=== PATIENT | female | born 1970 | race African-American/Black ===

== ENCOUNTER 2020-06-20 12:33 | Outpatient (RCR) | payer MEDICAID, SELFPAY ==
--- NOTE | 2020-07-24 09:34 | MHC.OT.DC ---
[address] [phone] F: [phone] Occupational Therapy Discharge Note Provider: Kaveh Daley Diagnosis: B/L HAND PAIN Date of Evaluation: 05/28/20 Date of Discharge: 07/24/20 Treatments to Date: 4 Cancellations to Date: 1 No Shows to Date: 4 Discharge Status: Patient Elected to Stop Visit Non-compliance Discharge Summary: NICOLE HAD ATTENDED A FEW SESSIONS OF OT, PRIMARILY FOR TREATMENT OF HER RIGHT VOLAR HAND. SHE EXPERIENCED HIGH PAIN AND DIFFICULTIES TOLERATING GRADED EXERCISES. HER RIGHT HAND WAS GUARDING WITH CUPPED HAND, SWOLLEN AT THENAR EMINENCE, AND TIGHT WEB SPACE. SHE WAS INCONSISTENT WITH FUNCTIONAL ABILITIES AND POSTURING. AT HER LAST VISIT, SHE REPORTED EMERGING INDEPENDENCE WITH BATHING AND DRESSING. MOST DIFFICULTIES WITH CUTTING AND STIRRING FOR MEAL PREP. NICOLE WILL BE D/C FROM OT DUE TO 30 DAY LAPSE IN RX AND INABILITY TO CONTACT PATIENT FOR ADDITIONAL VISITS. Electronically Signed By: HOLGER GREENBERG OTR/L Please Sign and return to therapist, thank you for your referral.
== END 2020-07-24 09:36 | disposition other institution (70) ==
LOC: HO.OT 12:33
PROVIDERS: PCP Internal Medicine; Visit Provider Student in an Organized Health Care Education/Training Program
DX: M79.7 Fibromyalgia (principal)
CPT/HCPCS: 97035; 97110; 97140; 97530

== ENCOUNTER → 2020-07-25 13:23 | Outpatient (BNVA) | payer MEDICAID, SELFPAY | PROVIDERS: PCP Internal Medicine; Referring Provider Internal Medicine; Visit Provider Dietitian, Registered | DX: Z76.89 Persons encountering health services in other specified circumstances (principal) ==

== ENCOUNTER → 2020-08-23 12:20 | Outpatient (BNVA) | payer MEDICAID, SELFPAY | PROVIDERS: PCP Internal Medicine; Visit Provider Nurse Practitioner Gerontology | DX: E11.42 Type 2 diabetes mellitus with diabetic polyneuropathy (principal); E11.65 Type 2 diabetes mellitus with hyperglycemia; E11.22 Type 2 diabetes mellitus with diabetic chronic kidney disease; N18.30 Chronic kidney disease, stage 3 unspecified; Z79.4 Long term (current) use of insulin | CPT/HCPCS: 82947; 99212 ==

== ENCOUNTER → 2020-09-25 11:29 | Outpatient (BNVA) | payer MEDICAID, SELFPAY | PROVIDERS: PCP Internal Medicine; Referring Provider Internal Medicine; Visit Provider Dietitian, Registered | DX: Z76.89 Persons encountering health services in other specified circumstances (principal) ==

== ENCOUNTER 2020-10-15 08:29 | Outpatient (REF) | payer MEDICAID, SELFPAY ==
--- NOTE | 2020-10-15 | US_ITS ---
EXAMINATION: US ABDOMEN COMPLETE CLINICAL INFORMATION: Abnormal serum enzyme levels. COMPARISON: None TECHNIQUE: Real-time imaging of the abdominal viscera. FINDINGS: PANCREAS: Normal. ABDOMINAL AORTA: The proximal, mid, and distal segments are normal in caliber. INFERIOR VENA CAVA: Visualized portions are normal. LIVER: Coarsened hepatic parenchymal echogenicity. The liver is normal in size. Mildly nodular surface contour. No focal hepatic lesion. There is no intrahepatic biliary duct dilatation seen. GALLBLADDER: Cholelithiasis. No gallbladder wall thickening or pericholecystic fluid. Sonographic Hillman sign is negative. COMMON BILE DUCT: Normal in caliber measuring 0.3 cm in diameter. RIGHT KIDNEY: Mild fullness of the renal pelvis without hydronephrosis. No renal calculi or focal parenchymal lesions. The kidney measures 11.8 cm in maximum dimension. LEFT KIDNEY: Normal. No hydronephrosis. No renal calculi or focal parenchymal lesions. The kidney measures 12.1 cm in maximum dimension. SPLEEN: Normal. The spleen measures 11.2 cm in maximum dimension. FREE FLUID: None. US/US abdomen complete IMPRESSION: * Coarsened hepatic parenchymal echogenicity and mildly heterogeneous contour suggests early cirrhosis. * No focal liver lesions. * Cholelithiasis without sonographic evidence of cholecystitis.
== END 2020-10-15 08:30 | disposition home or self-care (01) ==
LOC: HO.US 08:29
PROVIDERS: PCP Internal Medicine; Visit Provider Internal Medicine
DX: R74.8 Abnormal levels of other serum enzymes (principal)
CPT/HCPCS: 76700

== ENCOUNTER → 2020-11-15 14:47 | Outpatient (BNVA) | payer MEDICAID, SELFPAY | PROVIDERS: PCP Internal Medicine; Visit Provider Nurse Practitioner Family ==

== ENCOUNTER 2020-11-27 09:56 | Outpatient (REF) | payer MEDICAID, SELFPAY ==
[2020-11-27 10:32] LABS: INTERNATIONAL NORM RATIO 1.2 (0.9-1.1); Prothrombin Time 14.8 SEC (10.8-13.0)
[2020-11-27 11:07] LABS: Alanine Aminotransferase 57 U/L (0-31); Albumin Level 4.4 g/dL (3.5-5.0); Alkaline Phosphatase 139 U/L (39-117); Anion Gap 14 (12-20); Aspartate Amino Transferase 58 U/L (5-31); Bilirubin Total 0.6 mg/dL (0.0-1.0); Blood Urea Nitrogen 13 mg/dL (9-16); Calcium 10.3 mg/dL (8.4-10.2); Carbon Dioxide 29 mmol/L (22-29); Chloride 104 mmol/L (96-108); Cholesterol 229 mg/dL; Estimated Glomerular Filt Rate > 60; Glucose Fasting 270 mg/dL (60-99); HDL Cholesterol 35 mg/dL; Potassium 4.7 mmol/L (3.3-5.1); Sodium 142 mmol/L (135-145); Total Protein 8.5 g/dL (6.5-8.0); Triglycerides 455 mg/dL
[2020-11-27 11:25] LABS: HBS Num1 0.12 mIU/mL (0-7.99); HBsAGNum1 0.39 S/CO (0.00-0.99); Hepatitis B Surface Antigen Negative (Negative); ~HepC Num1 0.14 S/CO (0.00-0.79); ~Hepatitis B Surface Antibody NONREACTIVE (Nonreactive); ~Hepatitis C Antibody Nonreactive (Nonreactive)
[2020-11-27 11:28] LABS: HBc Num1 0.07 S/CO (0.00-0.79); HIV AB/AG Nonreactive (Nonreactive); HIV Num 1 0.06 S/CO (0.00-0.99); Hepatitis A Antibody IgM 0.19 Index (0-0.79); Hepatitis B Core Antibody Nonreactive (Nonreactive); ~Hepatitis A Antibody IgM Nonreactive (Nonreactive)
[2020-11-27 11:29] LABS: Ferritin 352 ng/mL (10-250); Thyroid Stimulating Hormone 2.51 uIU/mL (0.32-4.0)
[2020-11-27 13:05] LABS: Estimated Average Glucose 229 mg/dL; Hemoglobin A1c % 9.6 %
[2020-11-28 12:27] LABS: Alpha Fetoprotein 5.4 ng/mL
[2020-11-28 14:01] LABS: CRP High Sensitivity >10.0 mg/L
[2020-11-29 13:36] LABS: Prot Elec - Albumin 4.3 g/dL (3.8-4.8); Prot Elec - Alpha1 0.3 g/dL (0.2-0.3); Prot Elec - Alpha2 0.9 g/dL (0.5-0.9); Prot Elec - Beta 1 0.5 g/dL (0.4-0.6); Prot Elec - Beta 2 0.5 g/dL (0.2-0.5); Prot Elec - Gamma 1.6 g/dL (0.8-1.7)
[2020-11-29 13:57] LABS: Anti Nuclear Antibody Screen NEGATIVE (NEGATIVE)
[2020-12-03 13:32] LABS: Mitochondrial Antibodies NEGATIVE (NEGATIVE)
[2020-12-03 21:56] LABS: Smooth Muscle Antibody 20 U (<20)
[2020-12-05 00:36] LABS: FIB-ALT 54 U/L (6-29); FIB-Alpha-2-Macroglobulin 396 mg/dL (106-279); FIB-Apolipoprotein A1 126 mg/dL (101-198); FIB-GGT 428 U/L (3-70); FIB-Haptoglobin 118 mg/dL (43-212); FIB-Total Bilirubin 0.4 mg/dL (0.2-1.2); Liver Fibrosis Score 0.75; Liver Fibrosis Stage F4; Nec Inflam Act Grade A1-A2; Nec Inflam Act Score 0.48
== END 2020-11-27 09:57 | disposition home or self-care (01) ==
LOC: HO.LAB 09:56
PROVIDERS: Absent Provider Nurse Practitioner Gerontology; PCP Internal Medicine; Visit Provider Nurse Practitioner Family
DX: E11.65 Type 2 diabetes mellitus with hyperglycemia (principal); R74.8 Abnormal levels of other serum enzymes; Z79.4 Long term (current) use of insulin
CPT/HCPCS: 36415; 80053; 80061; 81596; 82105; 82728; 83036; 84155; 84165; 84443; 85610; 86038; 86039; 86141; 86255; 86256; 86704; 86706; 86709; 86803; 87340; 87389

== ENCOUNTER → 2020-12-03 12:21 | Outpatient (BNVA) | payer MEDICAID, SELFPAY | PROVIDERS: PCP Internal Medicine; Visit Provider Nurse Practitioner Gerontology | DX: E11.42 Type 2 diabetes mellitus with diabetic polyneuropathy (principal); E11.65 Type 2 diabetes mellitus with hyperglycemia; Z79.4 Long term (current) use of insulin | CPT/HCPCS: 82947; 99212 ==

== ENCOUNTER → 2020-12-05 13:47 | Outpatient (BNVA) | payer MEDICAID, SELFPAY | PROVIDERS: PCP Internal Medicine; Visit Provider Nurse Practitioner Family ==

== ENCOUNTER 2020-12-06 11:44 | Outpatient (REF) | payer MEDICAID, SELFPAY ==
[2020-12-06 15:10] LABS: Albumin Level 4.2 g/dL (3.5-5.0)
[2020-12-09 10:31] LABS: Alpha 1 Anti-trypsin 125 mg/dL (83-199); Ceruloplasmin 35 mg/dL (18-53)
== END 2020-12-06 11:45 | disposition home or self-care (01) ==
LOC: HO.LAB 11:44
PROVIDERS: Nurse Practitioner Family; PCP Internal Medicine; Visit Provider Nurse Practitioner Gerontology
DX: K74.60 Unspecified cirrhosis of liver (principal); R74.8 Abnormal levels of other serum enzymes; E78.5 Hyperlipidemia, unspecified; K59.00 Constipation, unspecified
CPT/HCPCS: 36415; 81256; 82040; 82043; 82103; 82390; 84134; 99212

== ENCOUNTER 2020-12-30 13:40 | Outpatient (REF) | payer MEDICAID, SELFPAY ==
--- NOTE | ~2020-12-30 | MM_ITS ---
EXAMINATION: MM SCREENING DIGITAL BREAST TOMOSYNTHESIS, BILATERAL CLINICAL INFORMATION: Screening. Asymptomatic. The lifetime risk of breast cancer based on the Tyrer-Cuzick Model is 16%. COMPARISON: Mammography: 02/13/2019, 01/31/2019 (new baseline) TECHNIQUE: Digital breast tomosynthesis is performed in both the craniocaudal and mediolateral oblique views along with computer-aided detection (CAD). Synthesized 2D images are generated from the tomosynthesis. FINDINGS: There are scattered areas of fibroglandular density (ACR BI-RADS breast composition Category b). There are no significant masses, abnormal calcifications, or other abnormalities. There are scattered punctate calcifications bilateral upper outer quadrants. Dermal calcifications are again seen grouped mid 3:00 right breast. The axilla are unremarkable. No significant changes. MM/MM tomosynthesis screening BI IMPRESSION: No mammographic evidence of malignancy. ASSESSMENT: BI-RADS 2: Benign RECOMMENDATION: Routine annual mammography screening. This patient's information was entered into a reminder system with a target due date for their next mammogram.
== END 2020-12-30 13:41 | disposition home or self-care (01) ==
LOC: HO.MAMMO 13:40
PROVIDERS: PCP Internal Medicine; Visit Provider Internal Medicine
DX: Z12.31 Encounter for screening mammogram for malignant neoplasm of breast (principal)
CPT/HCPCS: 77063; 77067

== ENCOUNTER → 2021-01-08 13:52 | Outpatient (BNVA) | payer MEDICAID, SELFPAY | PROVIDERS: PCP Internal Medicine; Visit Provider Nurse Practitioner Family ==

== ENCOUNTER 2021-01-17 13:45 | Outpatient (REF) | payer MEDICAID, SELFPAY ==
[2021-01-21 14:57] LABS: Ceruloplasmin 33 mg/dL (18-53)
== END 2021-01-17 13:46 | disposition home or self-care (01) ==
LOC: HO.LAB 13:45
PROVIDERS: PCP Internal Medicine; Referring Provider Internal Medicine; Visit Provider Nurse Practitioner Family
DX: R74.8 Abnormal levels of other serum enzymes (principal); K74.60 Unspecified cirrhosis of liver; K59.00 Constipation, unspecified; E78.5 Hyperlipidemia, unspecified
CPT/HCPCS: 36415; 82390; 99212

== ENCOUNTER → 2021-01-31 12:28 | Outpatient (BNVA) | payer MEDICAID, SELFPAY | PROVIDERS: PCP Internal Medicine; Referring Provider Internal Medicine; Visit Provider Nurse Practitioner Family | DX: K74.60 Unspecified cirrhosis of liver (principal); E78.5 Hyperlipidemia, unspecified; K59.00 Constipation, unspecified; R74.8 Abnormal levels of other serum enzymes | CPT/HCPCS: 99212 ==

== ENCOUNTER → 2021-02-25 12:53 | Outpatient (REF) | payer MEDICAID, SELFPAY ==
--- NOTE | 2021-02-25 12:56 | CA_ITS ---
Transthoracic Echocardiogram Patient (Last, First, Middle): Renata Gusman, Gender: Female Date of : 1970 Age: 50 Procedure Date: 02/25/2021 Procedure Type: Transthoracic Echocardiogram Location: OP Height: 162.56 cm Weight: 73.48 kg BSA: 1.79 m2 Heart Rate: bpm BP: 110 / 70 mmHg Auto Claim Representative: ELDER Referring MD: Margie Hugo [facility] Symptoms: K74.60 - Unspecified cirrhosis of liver Study Quality: Fair ECG Rhythm: Sinus Conclusions: - The left ventricular systolic function is normal. The visually estimated ejection fraction is between 60-65%. - No obvious valvular pathology seen on this study. Findings Left Ventricle Normal left ventricular cavity size. The left ventricular systolic function is normal. The visually estimated ejection fraction is between 60-65%. There is no evidence of regional wall motion abnormalities. Diastolic function is normal for age. Mild focal hypertrophy of the basal septum. Right Ventricle Normal right ventricular cavity size and systolic function. Atria Both atria are normal in size. Aortic Valve There is a normal trileaflet aortic valve. There is no aortic valve stenosis. There is no aortic valve regurgitation. Mitral Valve There is mild anterior and posterior mitral leaflet thickening. There is trace mitral valve regurgitation. There is no mitral valve stenosis. Pulmonic Valve The pulmonic valve was not well visualized. There is trace pulmonic valve regurgitation. Tricuspid Valve Normal tricuspid valve structure. There is no tricuspid valve regurgitation. The pulmonary artery systolic pressure is normal. Great Vessels The aortic annulus, sinuses of valsalva, and asc aorta are normal in size. Venous The inferior vena cava was not well visualized. The inferior vena cava is normal in size. Pericardium/Pleural There is no evidence of pericardial effusion. Prior Study Comparison No prior study available for comparison. Recommendations, Care & Conclusions No obvious valvular pathology seen on this study. Measurements M-Mode Liner Measurements Normals - Women/Men AOV Cusps: 2.00 1.5-2.6 cm/m2 2D Linear Measurements IVSd: 0.73 0.6-0.9/0.6-1.0 cm LVIDd: 4.06 3.9-5.3/4.2-5.9 cm LVIDd Index: 2.27 2.4-3.2/2.2-3.1 cm/m2 LVIDs: 2.59 2.0-3.6 cm LVPWd: 0.78 0.7-1.1 cm Ao Root: 2.70 2.1-3.5 cm LA Diam: 2.80 2.7-3.8/3.0-4.0 cm LAIDs Index: 1.56 1.5-2.3 cm/m2 LV Mass: 109.44 67-162/88-224 g LV Mass Index: 61.14 43-95/49-115 g/m2 LVOT Diam: 1.80 3.0+(-)1.3 cm 2D Systolic Function EF 4C: 57.70 >55% EF 2C: 67.20 >55% EF BiP: 62.80 >55% Mitral Valve MV Pk E: 0.64 MV PK A: 0.50 MV Decel Time: 330.00 E/A: 1.30 E'Lateral: 11.00 E'Medial: 6.09 E/E' Med: 10.60 E/E' Lat: 5.80 PHT: 97.00 MVA PHT: 2.27 Decel [place]: 1.95 Aortic Valve AoV Pk Regis: 1.38 AoV Mn Regis: 0.91 AoV VTI: 0.25 AoV Pk Grad: 8.00 Aov Mn Grad: 4.00 CHACORTA Cont.VTI: 1.66 LVOT LVOT Pk Regis: 0.76 LVOT Mn Regis: 0.57 LVOT VTI: 0.16 LVOT Pk Grad: 2.00 LVOT Mn Grad: 1.00 LVOT Diam: 1.80 LVOT Area: 2.54 Diastolic Function MV Pk E: 0.64 MV Pk A: 0.50 E/A: 1.30 E'Medial: 6.09 E/E' Med: 10.60 E' Laterial: 11.00 E/E' Lat: 5.80 Tricuspid Valve RA Press: 3.00 Great Vessels Aorta Ao Root-2D: 2.70 2.0-3.7 cm Ao Asc: 2.60 2.1-3.4 cm Ao Arch: 2.20 Pulmonary Valve PV Pk Regis: 1.05 Peak PV Grad: 4.00 Updated in Other Vendor System with Status of Final Rolando Llamas MD electronically signed on 02/26/2021 4:25:28 PM with status of Final
== END ==
LOC: HO.CARD 12:53
PROVIDERS: Visit Provider Nurse Practitioner Family
DX: K74.60 Unspecified cirrhosis of liver (principal); E78.5 Hyperlipidemia, unspecified
CPT/HCPCS: 93306

== ENCOUNTER → 2021-03-14 11:43 | Outpatient (BNVA) | payer MEDICAID, SELFPAY | PROVIDERS: PCP Internal Medicine; Visit Provider Nurse Practitioner Gerontology | DX: E11.42 Type 2 diabetes mellitus with diabetic polyneuropathy (principal); E11.65 Type 2 diabetes mellitus with hyperglycemia; E78.00 Pure hypercholesterolemia, unspecified; Z79.4 Long term (current) use of insulin | CPT/HCPCS: 82947; 99212 ==

== ENCOUNTER 2021-03-31 10:44 | Emergency (ER) | payer MEDICAID, SELFPAY ==
--- NOTE | ~2021-03-31 | XR_ITS ---
EXAMINATION: XR SHOULDER, LEFT CLINICAL INFORMATION: Pain COMPARISON: None TECHNIQUE: Three views of the left shoulder. FINDINGS: Bone alignment is normal. No fracture or dislocation is seen. There is arthritis at the glenohumeral joint with joint space narrowing and osteophyte formation. The acromioclavicular joint is normal. Soft tissues are normal. XR/XR shoulder LT min 2V IMPRESSION: Arthritis at the glenohumeral joint.
[2021-03-31 10:53] VITALS: BP 123/75; PULSE 71; RESP 18; TEMP 37; O2SAT 98
--- NOTE | 2021-03-31 11:43 | ED_ITS ---
HPI - Extremity Problem General Chief complaint: Extremity Injury, Upper Stated complaint: lt arm pain Time Seen by Provider: 03/31/21 10:48 Source: patient Mode of arrival: ambulatory Limitations: language barrier (Senegalese-speaking) History of Present Illness HPI Narrative: 51-year-old female with a past medical history of type 2 diabetes, diabetic polyneuropathy, CKD, hyperlipidemia, liver cirrhosis and constipation not on any blood thinners presenting to the ED with complaints of left shoulder/left upper arm pain over the past month after twisting her arm while she was holding the pole while on a bus and since then symptoms has worsening and she has limited range of motion since then. Denies any fevers, chills, dizziness, headaches, nausea/vomiting, change in vision, chest pain or shortness of breath, palpitations, dyspnea on exertion, orthopnea, extremity edema or any other symptoms complaints or concerns at this time. She reports she did not actually fall. Denies any rashes. MD Complaint: extremity pain Onset (ago): month(s) (1 month) Pain Consistency: constant Location: left and upper extremity (Shoulder) Severity scale (1-10): >10 Quality: aching and constant Radiation: distal Relieving factors: nothing Exacerbating factors: range of motion and palpation Associated symptoms: denies other symptoms Related Data Home Medications Medication Instructions Recorded Confirmed blood sugar diagnostic #10 ea 08/23/20 03/14/21 blood-glucose meter #1 ea 08/23/20 03/14/21 clonazepam 0.5 mg tablet 0.25 mg PO BID 08/23/20 03/14/21 escitalopram oxalate 20 mg tablet 20 mg PO DAILY 08/23/20 03/14/21 gabapentin 300 mg capsule 300 mg PO DAILY 08/23/20 03/14/21 ibuprofen 600 mg tablet 600 mg PO Q8H PRN 08/23/20 03/14/21 lancets 28 gauge #100 ea 08/23/20 03/14/21 levothyroxine 25 mcg capsule 25 mcg PO DAILY 08/23/20 03/14/21 lisinopril 2.5 mg tablet 2.5 mg PO DAILY 08/23/20 03/14/21 trazodone 150 mg tablet,extended 150 mg PO DAILY tab 08/23/20 03/14/21 release 24 hr Previous Rx's Medication Instructions Recorded docusate sodium 100 mg capsule 100 mg PO DAILY #30 cap 11/15/20 methylcellulose (laxative) 500 mg 500 mg PO DAILY #30 tab 11/15/20 tablet polyethylene glycol 3350 17 238 g PO ONCE #238 g 11/15/20 gram/dose oral powder insulin degludec 200 unit/mL (3 74 unit SUBCUT DAILY 30 Days #18 ml 12/03/20 mL) subcutaneous pen insulin lispro 100 unit/mL 28 unit SUBCUT TID 30 Days #30 ml 12/03/20 subcutaneous pen pen needle, diabetic 32 gauge x #150 ea 12/03/20 pioglitazone 15 mg tablet 15 mg PO DAILY #30 tab 12/03/20 empagliflozin 25 mg tablet 25 mg PO DAILY #30 tab 01/04/21 sennosides 8.6 mg tablet 17.2 mg PO BEDTIME PRN #30 tab 01/17/21 rosuvastatin 5 mg tablet 5 mg PO DAILY #30 tab 01/28/21 dulaglutide 1.5 mg/0.5 mL 1.5 mg SUBCUT QWEEK 28 Days #2 ml 03/14/21 subcutaneous pen injector cyclobenzaprine 10 mg PO Q8H #10 tab 03/31/21 ibuprofen 800 mg PO Q8H PRN #14 tab 03/31/21 lidocaine [Lidoderm] 1 patch TOPICAL DAILY #15 ea 03/31/21 tramadol 50 mg PO Q8H PRN #14 tab 03/31/21 Allergies Allergy/AdvReac Type Severity Reaction Status Date / Time acetaminophen Allergy Unknown rash Verified 03/14/21 12:45 [Tylenol-Codeine] codeine [Tylenol-Codeine] Allergy Unknown rash Verified 03/14/21 12:45 Sea food Allergy Mild throat Uncoded 03/14/21 12:45 closes Review of Systems Review of Systems: Constitutional : No changes in activity, No lethargy, No recent prior head injury, No agitation, No increased fussiness ENT/Mouth : No Ear Pain, No Nasal discharge/drainage Eyes: No Eye Pain, No Swelling, No Redness, No Foreign Body, No Vision Changes Cardiovascular : No Chest Pain, No SOB Respiratory : No Cough Gastrointestinal : No Nausea, No Vomiting, No abdominal Pain Genitourinary : No Dysuria, No Urinary Frequency, No Urinary Incontinence, No Urgency, No Flank Pain Musculoskeletal : + joint pain, No neck stiffness, No back pain/injury Skin : No lacerations Neuro : No unsteady gait, No Paresthesias, No Loss of Consciousness, No altered mental status, No Headache Yes all other systems are reviewed and are negative [facility] Past Medical History Attestation statement: The following information was validated with the patient. Medical History Asthma Chronic kidney disease, stage 3 Depression Elevated liver enzymes Fibromyalgia Hepatitis C Hypothyroidism [facility] current use of insulin Type 2 diabetes mellitus with diabetic polyneuropathy Type 2 diabetes mellitus with hyperglycemia, with long-term current use of insulin Surgical History H/O oral surgery Family History Family History Mother Diabetes Asthma Kidney stones Brother Diabetes Social History Social History Household Members: Spouse Alcohol intake: current Alcohol intake frequency: does not drink Patient Tobacco Use Status: Never used Tobacco Advance Directives: No Advance Directives Information Provided: No Patient : No Current occupational status: disabled Physical Exam Vital Signs: Vital Signs: Last Vital Signs Temp 98.6 F 03/31/21 10:53 Pulse 71 03/31/21 10:53 Resp 18 03/31/21 10:53 BP 123/75 03/31/21 10:53 Pulse Ox 98 03/31/21 10:53 Body Mass Index 30.0 vital signs have been reviewed as normal and appeared to be correct. Blood pressure normal. Heart rate normal. Respiration rate normal. Temperature normal. Oxygen saturation normal. Appearance: Alert. Oriented X3. No acute distress. Head: Normal external exam. Normocephalic. Atraumatic. Eyes: PERRLA. EOMI. Conjunctiva and sclera normal. Eyelids normal. ENT: Pharynx normal. Uvula midline. Moist mucous membranes. Neck: Normal inspection. Neck supple. FROM. No adenopathy. No meningeal signs. CVS: Normal heart rate and rhythm. Heart sound normal. Pulses normal throughout. No murmurs/rales/gallops. Respiratory: No respiratory distress. Painless inspiration. Breath sounds normal. No wheezes/rales/rhonchi noted. Chest nontender. No accessory muscle usage noted or decreased air movement noted. Back:Full range of motion noted. No rashes/lesion/induration/fluctuance or signs of infection noted. Skin: Skin warm and dry. Normal skin color. Normal skin turgor. No rashes/lesions/lacerations noted. Extremities: Patient with tenderness to palpation to left AC joint with limited range of motion due to pain and upper humerus. No signs of infection. No rashes noted. No laxity noted. No extremity edema noted. Otherwise all other Extremities exhibit normal range of motion and nontender. Neuro: Oriented X 3. No motor deficit. No sensory deficit. Reflexes normal. Normal steady gait. No focal neuro deficits noted. Vascular: + radial pulses/+ 2 distal pedal pulses/+2 dorsalis pedis b/l. Normal cap refill. No cyanosis noted to upper extremity nails and lower extremity toes nails. Course Course Course Narrative: 51-year-old female with a past medical history of type 2 diabetes, diabetic polyneuropathy, CKD, hyperlipidemia, liver cirrhosis and constipation not on any blood thinners presenting to the ED with complaints of left shoulder/left upper arm pain over the past month after twisting her arm while she was holding the pole while on a bus and since then symptoms has worsening and she has limited range of motion since then. On exam patient has limited range of motion and tenderness with palpation to left AC joint. No laxity noted. No deformities noted. Muscles appear to be intact. Will obtain x-ray if negative will DC home with symptomatic treatment instructions to follow-up with her primary care provider. Patient understands agrees with this plan. MDM - Extremity (Nontraumatic) Lab Data Attestation: I reviewed the patient's lab results. Imaging Data Left shoulder x-ray: Attestation: I personally reviewed and interpreted this imaging study as follows: Radiologist's impression: FINDINGS: Bone alignment is normal. No fracture or dislocation is seen. There is arthritis at the glenohumeral joint with joint space narrowing and osteophyte formation. The acromioclavicular joint is normal. Soft tissues are normal. XR/XR shoulder LT min 2V IMPRESSION: Arthritis at the glenohumeral joint. Discharge Plan Discharge Clinical Impression: Arthritis of left glenohumeral joint Patient Disposition: Home, Self-Care Instructions: Shoulder Sprain (ED), Rotator Cuff Injury Exercises (DC), Arthritis (ED) Prescriptions: New cyclobenzaprine 10 mg tablet 10 mg PO Q8H Qty: 10 RF: 0 ibuprofen 800 mg tablet 800 mg PO Q8H PRN (Reason: pain) Qty: 14 RF: 0 lidocaine [Lidoderm] 5 % adhesive patch,medicated 1 patch topical DAILY Qty: 15 RF: 0 tramadol 50 mg tablet 50 mg PO Q8H PRN (Reason: pain) Qty: 14 RF: 0 No Action empagliflozin [Jardiance] 25 mg tablet 25 mg PO DAILY Qty: 30 RF: 3 rosuvastatin 5 mg tablet 5 mg PO DAILY Qty: 30 RF: 4 polyethylene glycol 3350 [Miralax] 17 gram/dose powder 238 g PO ONCE Qty: 238 RF: 0 docusate sodium 100 mg capsule 100 mg PO DAILY Qty: 30 RF: 3 Citrucel 500 mg tablet 500 mg PO DAILY Qty: 30 RF: 2 pioglitazone 15 mg tablet 15 mg PO DAILY Qty: 30 RF: 3 Tresiba FlexTouch U-200 200 unit/mL (3 mL) insulin pen 74 unit subcut DAILY 30 Days Qty: 18 RF: 3 insulin lispro [Humalog KwikPen Insulin] 100 unit/mL insulin pen 28 unit subcut TID 30 Days Qty: 30 RF: 3 (DME) pen needle, diabetic [BD Eun 2nd Gen Pen Needle] 32 gauge x 5/32 needle See Rx Instructions .ROUTE .MEDSUPPLY Qty: 150 RF: 3 sennosides [Natural Senna Laxative] 8.6 mg tablet 17.2 mg PO BEDTIME PRN (Reason: constipation) Qty: 30 RF: 3 (DME) blood-glucose meter [FreeStyle Lite Meter] Kit See Rx Instructions .ROUTE .MEDSUPPLY Qty: 1 RF: 0 (DME) FreeStyle Lite Strips Strip See Rx Instructions .ROUTE .MEDSUPPLY Qty: 10 RF: 0 (DME) lancets [FreeStyle Lancets] 28 gauge misc See Rx Instructions .ROUTE .MEDSUPPLY Qty: 100 RF: 0 ibuprofen 600 mg tablet 600 mg PO Q8H PRNRF: 0 lisinopril 2.5 mg tablet 2.5 mg PO DAILY RF: 0 trazodone 150 mg tablet extended release 24 hr 150 mg PO DAILY RF: 0 clonazepam 0.5 mg tablet 0.25 mg PO BID RF: 0 levothyroxine [Tirosint] 25 mcg capsule 25 mcg PO DAILY RF: 0 escitalopram oxalate 20 mg tablet 20 mg PO DAILY RF: 0 gabapentin 300 mg capsule 300 mg PO DAILY RF: 0 Trulicity 1.5 mg/0.5 mL pen injector 1.5 mg subcut QWEEK 28 Days Qty: 2 RF: 3 Referrals: Renetta Gómez MD [Primary Care Provider] - 2 days Anali Pretty MD [Physician] - 2 weeks (If symptoms persist) Print Language: Senegalese
== END 2021-03-31 12:50 | disposition home or self-care (01) ==
PROVIDERS: Emergency Provider Emergency Medicine; PCP Internal Medicine
DX: M19.012 Primary osteoarthritis, left shoulder (principal); E11.22 Type 2 diabetes mellitus with diabetic chronic kidney disease; N18.30 Chronic kidney disease, stage 3 unspecified; Z79.4 Long term (current) use of insulin; Z79.899 Other long term (current) drug therapy
CPT/HCPCS: 73030; 99283

== ENCOUNTER → 2021-04-07 12:44 | Outpatient (BNVA) | payer MEDICAID, SELFPAY | PROVIDERS: PCP Internal Medicine; Referring Provider Internal Medicine; Visit Provider Nurse Practitioner Family | DX: K74.60 Unspecified cirrhosis of liver (principal); K59.00 Constipation, unspecified; R74.8 Abnormal levels of other serum enzymes | CPT/HCPCS: 99212 ==

== ENCOUNTER 2021-04-15 09:43 | Day surgery (SDC) | payer MEDICAID, SELFPAY ==
[2021-04-15] VITALS (8 sets, daily range): BP systolic 103–113; BP diastolic 60–67; PULSE 65–96; RESP 16–17; TEMP 36.6–36.7; O2SAT 96–98; BMI 27.9
--- NOTE | ~2021-04-15 | US_ITS ---
EXAMINATION: US ULTRASOUND-GUIDED LIVER BIOPSY CLINICAL INFORMATION: Cirrhosis and elevated LFTs. COMPARISON: None. TECHNIQUE: Following explaining ultrasound-guided liver biopsy procedure, benefits and risks, a written consent was obtained. Patient was placed supine on an ultrasound table and preliminary ultrasound imaging was obtained. An optimal site was selected, marked and cleaned in the usual sterile manner in the epigastric region. 1% lidocaine was injected at the puncture site. Through a small skin incision, a 20-gauge guide needle was advanced from the skin incision into the left hepatic lobe. Coaxially, a biopsy gun was advanced and a left hepatic lobe core biopsy was performed. Postprocedure the guide needle was withdrawn and complete hemostasis was achieved at the puncture site. Sterile Band-Aid was applied postprocedure. FINDINGS: On preliminary ultrasound imaging, the liver is diffusely echogenic. There are multiple echogenic gallstones with no wall thickening. Successful ultrasound-guided left hepatic lobe coaxial core biopsy was performed. Biopsy collected was sent in alcohol solution to cytology for further evaluation. US/US biopsy liver IMPRESSION: Successful ultrasound-guided liver core biopsy performed without immediate complications.
[2021-04-15 10:05] LABS: MANUAL DIFF FLAG NO
[2021-04-15 10:08] LABS: Basophils Percent Auto 0.3 % (0-2); Eosinophils Absolute Auto 0.2 X10*3/uL (0.0-0.4); Eosinophils Percent Auto 1.6 % (0-4); Hematocrit 46.5 % (37-47); Hemoglobin 15.3 g/dl (12.0-16.0); Imm Gran Abs Auto 0.04 X10*3/uL (0.00-0.03); Imm Gran Pct Auto 0.4 % (0.0-0.4); Lymphocytes Percent Auto 31.4 % (20-40); Mean Corpuscular HGB Conc 32.9 g/dl (31.0-35.0); Mean Corpuscular Hemoglobin 30.8 pg (27.0-33.0); Mean Corpuscular Volume 93.8 fL (80-98); Monocytes Absolute Auto 0.5 X10*3/uL (0.1-1.2); Monocytes Percent Auto 5.6 % (2-11); Neutrophils Absolute Auto 5.9 X10*3/uL (2.0-8.3); Neutrophils Percent Auto 60.7 % (45-73); Platelet Count 161 X10*3/uL (160-400); Red Blood Count 4.96 X10*6/uL (4.20-5.50); Red Cell Distribution Width 13.3 % (11.0-16.0); White Blood Count 9.6 X10*3/uL (4.8-10.8)
[2021-04-15 10:14] LABS: INTERNATIONAL NORM RATIO 1.3 (0.9-1.1); Prothrombin Time 14.5 SEC (9.9-13.0)
[2021-04-15 10:14] LABS: Glucose, Whole Blood 167 mg/dL (60-115)
[2021-04-15 10:16] LABS: Partial Thromboplastin Time 43.4 SEC (24.1-38.0)
== END 2021-04-15 12:23 | disposition home or self-care (01) ==
PROVIDERS: Radiology Diagnostic Radiology; PCP Internal Medicine; Visit Provider Radiology Diagnostic Radiology
DX: K74.60 Unspecified cirrhosis of liver (principal); R74.8 Abnormal levels of other serum enzymes; K75.81 Nonalcoholic steatohepatitis (NASH); K80.80 Other cholelithiasis without obstruction; J45.909 Unspecified asthma, uncomplicated; E11.22 Type 2 diabetes mellitus with diabetic chronic kidney disease; N18.30 Chronic kidney disease, stage 3 unspecified; E11.42 Type 2 diabetes mellitus with diabetic polyneuropathy; E11.65 Type 2 diabetes mellitus with hyperglycemia; Z79.4 Long term (current) use of insulin
CPT/HCPCS: 36415; 47000; 76942; 82947; 85025; 85610; 85730; 88307; 88313; 99152; J2250; J3010

== ENCOUNTER 2021-04-23 09:43 | Emergency (ER) | payer MEDICAID, SELFPAY ==
--- NOTE | 2021-06-08 01:35 | ED_ITS ---
HPI - General Adult General Stated complaint: shoulder pain Related Data Home Medications Medication Instructions Recorded Confirmed blood-glucose meter (FreeStyle #1 ea 08/23/20 03/14/21 Lite Meter) clonazepam 0.5 mg tablet 0.25 mg PO BID 08/23/20 03/14/21 escitalopram oxalate 20 mg tablet 20 mg PO DAILY 08/23/20 03/14/21 gabapentin 300 mg capsule 300 mg PO DAILY 08/23/20 03/14/21 ibuprofen 600 mg tablet 600 mg PO Q8H PRN 08/23/20 03/14/21 lancets 28 gauge (FreeStyle #100 ea 08/23/20 03/14/21 Lancets) levothyroxine 25 mcg capsule 25 mcg PO DAILY 08/23/20 03/14/21 (Tirosint) lisinopril 2.5 mg tablet 2.5 mg PO DAILY 08/23/20 03/14/21 trazodone 150 mg tablet,extended 150 mg PO DAILY tab 08/23/20 03/14/21 release 24 hr Previous Rx's Medication Instructions Recorded polyethylene glycol 3350 17 238 g PO ONCE #238 g 11/15/20 gram/dose oral powder (Miralax) insulin lispro 100 unit/mL 28 unit SUBCUT TID 30 Days #30 ml 12/03/20 subcutaneous pen (Humalog KwikPen (U-100) Insulin) pen needle, diabetic 32 gauge x #150 ea 12/03/20 (BD Eun 2nd Gen Pen Needle) empagliflozin 25 mg tablet 25 mg PO DAILY #30 tab 01/04/21 (Jardiance) rosuvastatin 5 mg tablet 5 mg PO DAILY #30 tab 01/28/21 dulaglutide 1.5 mg/0.5 mL 1.5 mg SUBCUT QWEEK 28 Days #2 ml 03/14/21 subcutaneous pen injector (Trulicity) cyclobenzaprine 10 mg tablet 10 mg PO Q8H #10 tab 03/31/21 ibuprofen 800 mg tablet 800 mg PO Q8H PRN #14 tab 03/31/21 lidocaine 5 % topical patch 1 patch TOPICAL DAILY #15 ea 03/31/21 (Lidoderm) tramadol 50 mg tablet 50 mg PO Q8H PRN #14 tab 03/31/21 docusate sodium 100 mg capsule 100 mg PO DAILY #30 cap 04/07/21 sennosides 8.6 mg tablet (Natural 17.2 mg PO BEDTIME PRN #30 tab 04/07/21 Senna Laxative) methylcellulose (laxative) 500 mg 500 mg PO .daily 30 Days #30 tab 04/09/21 tablet (Fiber Therapy (methylcellulose)) pioglitazone 15 mg tablet 15 mg PO DAILY #30 tab 04/16/21 insulin degludec 200 unit/mL (3 74 unit SUBCUT DAILY 30 Days #18 ml 04/30/21 mL) subcutaneous pen (Tresiba FlexTouch U-200 insulin) blood sugar diagnostic (FreeStyle #1.5 box 06/03/21 Lite Strips) Allergies Allergy/AdvReac Type Severity Reaction Status Date / Time acetaminophen Allergy Unknown rash Verified 04/15/21 10:02 [Tylenol-Codeine] codeine [Tylenol-Codeine] Allergy Unknown rash Verified 04/15/21 10:02 Sea food Allergy Mild throat Uncoded 03/14/21 12:45 closes [facility] Past Medical History Medical History Asthma Chronic kidney disease, stage 3 Depression Elevated liver enzymes Fibromyalgia Hepatitis C 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 Type 2 diabetes mellitus with diabetic polyneuropathy Type 2 diabetes mellitus with hyperglycemia, with long-term current use of insulin Surgical History H/O oral surgery Family History Family History Mother Diabetes Asthma Kidney stones Brother Diabetes Social History Social History Household Members: Spouse Alcohol intake: current Alcohol intake frequency: does not drink Patient Tobacco Use Status: Never used Tobacco Advance Directives: No Advance Directives Information Provided: No Current occupational status: disabled Discharge Plan Discharge Clinical Impression: Patient left without being seen Patient Disposition: Left Without Being Seen Interventions: LWBS Worksheet Last Done: 04/23/21 10:16 Discharge Date/Time: 04/23/21 10:17
== END 2021-04-23 10:17 | disposition left against medical advice (07) ==
PROVIDERS: Emergency Provider Emergency Medicine; PCP Internal Medicine
DX: M25.519 Pain in unspecified shoulder (principal)

== ENCOUNTER → 2021-06-09 13:47 | Outpatient (BNVA) | payer MEDICAID, SELFPAY | PROVIDERS: PCP Internal Medicine; Referring Provider Internal Medicine; Visit Provider Nurse Practitioner Family ==

== ENCOUNTER 2021-07-01 12:43 | Outpatient (REF) | payer MEDICAID, SELFPAY ==
[2021-07-01 14:01] LABS: Alanine Aminotransferase 55 U/L (0-31); Albumin Level 4.4 g/dL (3.5-5.0); Alkaline Phosphatase 141 U/L (39-117); Anion Gap 14 (12-20); Aspartate Amino Transferase 56 U/L (5-31); Bilirubin Total 0.5 mg/dL (0.0-1.0); Blood Urea Nitrogen 12 mg/dL (9-16); Calcium 10.1 mg/dL (8.4-10.2); Carbon Dioxide 29 mmol/L (22-29); Chloride 102 mmol/L (96-108); Estimated Glomerular Filt Rate > 60; Glucose Random 122 mg/dL (60-115); Potassium 4.3 mmol/L (3.3-5.1); Sodium 141 mmol/L (135-145); Total Protein 8.3 g/dL (6.5-8.0)
[2021-07-01 14:28] LABS: TSH reflex Free T4 1.96 uIU/mL (0.32-4.0)
== END 2021-07-01 12:44 | disposition home or self-care (01) ==
LOC: HO.LAB 12:43
PROVIDERS: PCP Internal Medicine; Visit Provider Nurse Practitioner Family
DX: E11.42 Type 2 diabetes mellitus with diabetic polyneuropathy (principal); E11.65 Type 2 diabetes mellitus with hyperglycemia; E78.00 Pure hypercholesterolemia, unspecified; Z79.4 Long term (current) use of insulin
CPT/HCPCS: 36415; 80053; 82947; 83036; 84443; 99212

== ENCOUNTER 2021-07-14 08:47 | Outpatient (REF) | payer MEDICAID, SELFPAY | END 2021-07-14 08:48 | disposition home or self-care (01) | LOC: HO.CT 08:47 | PROVIDERS: PCP Internal Medicine; Visit Provider Nurse Practitioner Family | DX: Z13.89 Encounter for screening for other disorder (principal) ==

== ENCOUNTER → 2021-08-11 12:36 | Outpatient (BNVA) | payer MEDICAID, SELFPAY | PROVIDERS: PCP Internal Medicine; Visit Provider Registered Nurse Diabetes Educator ==

== ENCOUNTER → 2021-08-12 12:46 | Outpatient (BNVA) | payer MEDICAID, SELFPAY | PROVIDERS: PCP Internal Medicine; Visit Provider Registered Nurse Diabetes Educator ==

== ENCOUNTER → 2021-08-13 13:42 | Outpatient (BNVA) | payer MEDICAID, SELFPAY | PROVIDERS: PCP Internal Medicine; Referring Provider Internal Medicine; Visit Provider Nurse Practitioner Family | DX: Z12.11 Encounter for screening for malignant neoplasm of colon (principal); K74.69 Other cirrhosis of liver; K59.04 Chronic idiopathic constipation; K21.9 Gastro-esophageal reflux disease without esophagitis | CPT/HCPCS: 99212 ==

== ENCOUNTER → 2021-10-01 13:42 | Outpatient (BNVA) | payer MEDICAID, SELFPAY | PROVIDERS: PCP Internal Medicine; Visit Provider Registered Nurse Diabetes Educator | DX: E11.42 Type 2 diabetes mellitus with diabetic polyneuropathy (principal); Z79.4 Long term (current) use of insulin | CPT/HCPCS: 99211 ==

== ENCOUNTER → 2021-10-29 12:51 | Outpatient (BNVA) | payer MEDICAID, SELFPAY | PROVIDERS: PCP Internal Medicine; Visit Provider Nurse Practitioner Gerontology | DX: E11.65 Type 2 diabetes mellitus with hyperglycemia (principal); E11.42 Type 2 diabetes mellitus with diabetic polyneuropathy; E78.00 Pure hypercholesterolemia, unspecified; Z79.4 Long term (current) use of insulin | CPT/HCPCS: 82947; 83036; 99211; 99212 ==

== ENCOUNTER → 2021-11-12 12:43 | Outpatient (BNVA) | payer MEDICAID, SELFPAY | PROVIDERS: PCP Internal Medicine; Visit Provider Registered Nurse Diabetes Educator | DX: E11.65 Type 2 diabetes mellitus with hyperglycemia (principal); E11.42 Type 2 diabetes mellitus with diabetic polyneuropathy; N18.30 Chronic kidney disease, stage 3 unspecified; E03.9 Hypothyroidism, unspecified; Z88.6 Allergy status to analgesic agent; Z91.013 Allergy to seafood; Z79.4 Long term (current) use of insulin | CPT/HCPCS: 99211 ==

== ENCOUNTER 2022-01-22 08:45 | Outpatient (REF) | payer MEDICAID, SELFPAY ==
[2022-01-22 10:14] LABS: Alanine Aminotransferase 29 U/L (0-31); Albumin Level 4.3 g/dL (3.5-5.0); Alkaline Phosphatase 109 U/L (39-117); Anion Gap 13 (12-20); Aspartate Amino Transferase 39 U/L (5-31); Bilirubin Total 0.5 mg/dL (0.0-1.0); Blood Urea Nitrogen 14 mg/dL (9-16); Calcium 9.9 mg/dL (8.4-10.2); Carbon Dioxide 27 mmol/L (22-29); Chloride 106 mmol/L (96-108); Cholesterol 162 mg/dL; Estimated Glomerular Filt Rate > 60; Glucose Fasting 66 mg/dL (60-99); HDL Cholesterol 39 mg/dL; LDL Cholesterol Calculated 102 mg/dl; Potassium 3.8 mmol/L (3.3-5.1); Sodium 142 mmol/L (135-145); Total Protein 8.2 g/dL (6.5-8.0); Triglycerides 105 mg/dL
[2022-01-22 10:37] LABS: Vitamin D 25-OH Total 21.3 ng/mL (>30)
[2022-01-24 00:02] LABS: LDL Cholesterol Direct 103 mg/dL (<100)
== END 2022-01-22 08:46 | disposition home or self-care (01) ==
LOC: HO.LAB 08:45
PROVIDERS: PCP Internal Medicine; Visit Provider Nurse Practitioner Gerontology
DX: E11.42 Type 2 diabetes mellitus with diabetic polyneuropathy (principal); E55.9 Vitamin D deficiency, unspecified; Z79.4 Long term (current) use of insulin
CPT/HCPCS: 36415; 80053; 80061; 82306; 83721

== ENCOUNTER → 2022-01-26 13:45 | Outpatient (BNVA) | payer MEDICAID, SELFPAY | PROVIDERS: PCP Internal Medicine; Visit Provider Nurse Practitioner Gerontology | DX: E11.42 Type 2 diabetes mellitus with diabetic polyneuropathy (principal); E11.65 Type 2 diabetes mellitus with hyperglycemia; E78.00 Pure hypercholesterolemia, unspecified; Z79.4 Long term (current) use of insulin | CPT/HCPCS: 82947; 83036; 99212 ==

== ENCOUNTER → 2022-03-18 12:44 | Outpatient (BNVA) | payer MEDICAID, SELFPAY | PROVIDERS: PCP Internal Medicine; Visit Provider Registered Nurse Diabetes Educator | DX: E11.42 Type 2 diabetes mellitus with diabetic polyneuropathy (principal); Z79.4 Long term (current) use of insulin | CPT/HCPCS: 99211 ==

== ENCOUNTER → 2022-06-15 10:46 | Outpatient (BNVA) | payer MEDICAID, SELFPAY | PROVIDERS: PCP Internal Medicine; Visit Provider Nurse Practitioner Family | DX: K59.04 Chronic idiopathic constipation (principal); R74.8 Abnormal levels of other serum enzymes; K74.69 Other cirrhosis of liver | CPT/HCPCS: 99212 ==

== ENCOUNTER → 2022-06-17 11:49 | Outpatient (BNVA) | payer MEDICAID, SELFPAY | PROVIDERS: PCP Internal Medicine; Visit Provider Registered Nurse Diabetes Educator | DX: E11.42 Type 2 diabetes mellitus with diabetic polyneuropathy (principal); Z79.4 Long term (current) use of insulin | CPT/HCPCS: 99211; 99499 ==

== ENCOUNTER → 2022-07-30 12:43 | Outpatient (BNVA) | payer MEDICAID, SELFPAY | PROVIDERS: PCP Internal Medicine; Visit Provider Nurse Practitioner Family | DX: Z12.11 Encounter for screening for malignant neoplasm of colon (principal); K59.04 Chronic idiopathic constipation; K74.69 Other cirrhosis of liver | CPT/HCPCS: 99212 ==

== ENCOUNTER 2022-08-11 10:42 | Outpatient (REF) | payer MEDICAID, SELFPAY ==
[2022-08-11 12:01] LABS: Alanine Aminotransferase 27 U/L (0-31); Albumin Level 4.2 g/dL (3.5-5.0); Alkaline Phosphatase 81 U/L (39-117); Aspartate Amino Transferase 33 U/L (5-31); Bilirubin Direct 0.2 mg/dL (0.0-0.5); Bilirubin Total 0.3 mg/dL (0.0-1.0); Total Protein 7.7 g/dL (6.5-8.0)
[2022-08-11 12:45] LABS: HBS Num1 3.23 mIU/mL (0-7.99); HBc Num1 0.19 S/CO (0.00-0.79); HBsAGNum1 0.27 S/CO (0.00-0.99); Hepatitis B Core Antibody Nonreactive (Nonreactive); Hepatitis B Surface Antigen Negative (Negative); ~HepC Num1 0.08 S/CO (0.00-0.79); ~Hepatitis B Surface Antibody NONREACTIVE (Nonreactive); ~Hepatitis C Antibody Nonreactive (Nonreactive)
[2022-08-12 08:53] LABS: Hepatitis A Antibody IgM 0.13 Index (0-0.79)
[2022-08-12 08:54] LABS: ~Hepatitis A Antibody IgM Nonreactive (Nonreactive)
[2022-08-14 12:19] LABS: Alpha Fetoprotein 4.3 ng/mL
== END 2022-08-11 10:43 | disposition home or self-care (01) ==
LOC: HO.LAB 10:42
PROVIDERS: PCP Internal Medicine; Visit Provider Nurse Practitioner Family
DX: R10.9 Unspecified abdominal pain (principal); R79.89 Other specified abnormal findings of blood chemistry
CPT/HCPCS: 36415; 80076; 82105; 86704; 86706; 86709; 86803; 87340

== ENCOUNTER → 2022-08-18 11:40 | Outpatient (BNVA) | payer MEDICAID, SELFPAY | PROVIDERS: PCP Internal Medicine; Visit Provider Nurse Practitioner Family | DX: Z23 Encounter for immunization (principal); K74.69 Other cirrhosis of liver | CPT/HCPCS: 90471; 90472; 90632; 90746 ==

== ENCOUNTER → 2022-09-02 12:44 | Outpatient (BNVA) | payer MEDICAID, SELFPAY | PROVIDERS: PCP Internal Medicine; Visit Provider Nurse Practitioner Family | DX: Z01.818 Encounter for other preprocedural examination (principal); K74.69 Other cirrhosis of liver; K59.04 Chronic idiopathic constipation | CPT/HCPCS: 99212 ==

== ENCOUNTER 2022-09-15 12:43 | Day surgery (SDC) | payer MEDICAID, SELFPAY ==
[2022-08-14 09:13] VITALS: BMI 28.9
--- NOTE | 2022-08-18 10:15 | HO.ANESPROP2 ---
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 (Acute) Chronic kidney disease, stage 3 (Acute) Past Medical History Medical History Asthma Chronic kidney disease, stage 3 Depression Elevated liver enzymes Fibromyalgia Hepatitis C Hyperlipidemia Hypothyroidism Liver cirrhosis nursing home current use of insulin Type 2 diabetes mellitus with diabetic polyneuropathy Type 2 diabetes mellitus with hyperglycemia, with long-term current use of insulin Family History Family History Mother Diabetes Asthma Kidney stones HTN (hypertension) Brother Diabetes Father Bloodstream infection Surgical History Surgical History H/O oral surgery Hx of biopsy Hx of hand surgery Social History Social History Household Members: Spouse Alcohol intake: current Alcohol intake frequency: does not drink Patient Tobacco Use Status: Never used Tobacco Current occupational status: disabled Meds Allergies Allergy/AdvReac Type Severity Reaction Status Date / Time seafood Allergy Severe throat Verified 07/30/22 12:48 closes codeine [Tylenol-Codeine] Allergy Intermediate rash Verified 08/14/22 09:19 Home Medications Medication Instructions Recorded Confirmed Last Taken Type blood-glucose meter (FreeStyle #1 ea 08/23/20 01/26/22 Unknown History Lite Meter kit) escitalopram oxalate 20 mg tablet 20 mg PO DAILY 08/23/20 08/14/22 Unknown History gabapentin 300 mg capsule 300 mg PO DAILY 08/23/20 08/14/22 Unknown History lancets 28 gauge (FreeStyle #100 ea 08/23/20 07/01/21 Unknown History Lancets) albuterol sulfate 90 mcg/actuation 2 puff inhalation Q4-6H PRN 07/30/22 08/14/22 Unknown History aerosol inhaler (Ventolin HFA) Wheezing atorvastatin 20 mg tablet 20 mg PO DAILY 07/30/22 08/14/22 Unknown History buspirone 7.5 mg tablet 7.5 mg PO TID anxiety 07/30/22 08/14/22 Unknown History clonazepam 0.5 mg tablet 0.5 mg PO BID PRN Anxiety 07/30/22 08/14/22 Unknown History levothyroxine 25 mcg tablet 25 mcg PO DAILY 07/30/22 08/14/22 Unknown History lisinopril 10 mg tablet 10 mg PO DAILY 07/30/22 08/14/22 Unknown History trazodone 150 mg tablet 150 mg PO BEDTIME depressive 07/30/22 08/14/22 Unknown History disorder Exam Exam Date and Time: August 18, 2022 1015 Height,Weight and Vital Signs: Height 5 ft 4 in Weight 76.454 kg Pertinent Lab Results Pertinent Lab Results: Laboratory Tests 01/22/22 09:07 Sodium 142 Potassium 3.8 Chloride 106 Carbon Dioxide 27 BUN 14 Creatinine 0.90 Laboratory Tests 08/11/22 11:00 Total Bilirubin 0.3 Direct Bilirubin 0.2 AST 33 H ALT 27 Alkaline Phosphatase 81 D Total Protein 7.7 Albumin 4.2 Narrative Narrative: ECHO 02/2021 Conclusions: - The left ventricular systolic function is normal.? The visually estimated ejection fraction is between 60-65%. ? - No obvious valvular pathology seen on this study.?? Assessment and Plan Assessment Anesthesia Assessment: Chart Reviewed
[2022-09-10 14:51] VITALS: BMI 30.2
--- NOTE | 2022-09-11 10:02 | P.CONAN_ITS ---
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 (Acute) Chronic kidney disease, stage 3 (Acute) Past Medical History Medical History Asthma Chronic kidney disease, stage 3 Depression Elevated liver enzymes Fibromyalgia Hepatitis C Hyperlipidemia Hypothyroidism Liver cirrhosis care home current use of insulin Type 2 diabetes mellitus with diabetic polyneuropathy Type 2 diabetes mellitus with hyperglycemia, with long-term current use of insulin Family History Family History Mother Diabetes Asthma Kidney stones HTN (hypertension) Brother Diabetes Father Bloodstream infection Surgical History Surgical History H/O oral surgery Hx of biopsy Hx of hand surgery Social History Social History Household Members: Spouse Are you a primary resident care aide to a significant other at home: No Do you presently have visiting nurse or other home services: No Alcohol intake: current Alcohol intake frequency: does not drink Patient Tobacco Use Status: Never used Tobacco Have you been hit, kicked, punched, or otherwise hurt by someone within the past year? If so, by whom?: No Are you DNR?: No Advance Directives: No Advance Directives Information Provided: Yes Advance Directives on File: No Nutrition Risks: Dental problems Patient : No FDLMP: due this week unable Poor oral hygiene: Yes (no teeth) Current occupational status: disabled Meds Allergies Allergy/AdvReac Type Severity Reaction Status Date / Time seafood Allergy Severe throat Verified 09/02/22 12:57 closes codeine [Tylenol-Codeine] Allergy Intermediate rash Verified 09/02/22 12:57 Home Medications Medication Instructions Recorded Confirmed Last Taken Type blood-glucose meter (FreeStyle #1 ea 08/23/20 01/26/22 Unknown History Lite Meter kit) escitalopram oxalate 20 mg tablet 20 mg PO DAILY 08/23/20 08/14/22 Unknown Histo ry gabapentin 300 mg capsule 300 mg PO DAILY 08/23/20 08/14/22 Unknown History lancets 28 gauge (FreeStyle #100 ea 08/23/20 07/01/21 Unknown History Lancets) albuterol sulfate 90 mcg/actuation 2 puff inhalation Q4-6H PRN 07/30/22 08/14/22 Unknown History aerosol inhaler (Ventolin HFA) Wheezing atorvastatin 20 mg tablet 20 mg PO DAILY 07/30/22 08/14/22 Unknown History buspirone 7.5 mg tablet 7.5 mg PO TID anxiety 07/30/22 08/14/22 Unknown History clonazepam 0.5 mg tablet 0.5 mg PO BID PRN Anxiety 07/30/22 08/14/22 Unknown History levothyroxine 25 mcg tablet 25 mcg PO DAILY 07/30/22 08/14/22 Unknown History lisinopril 10 mg tablet 10 mg PO DAILY 07/30/22 08/14/22 Unknown History trazodone 150 mg tablet 150 mg PO BEDTIME depressive 07/30/22 08/14/22 Unknown History disorder Exam Exam Date and Time: September 11, 2022 1002 Height,Weight and Vital Signs: Height 5 ft 4 in Weight 79.832 kg Pertinent Lab Results Pertinent Lab Results: Laboratory Tests 04/15/21 01/22/22 10:01 09:07 WBC 9.6 Hgb 15.3 Hct 46.5 Plt Count 161 Sodium 142 Potassium 3.8 Chloride 106 Carbon Dioxide 27 BUN 14 Creatinine 0.90 Narrative Narrative: ECHO 2020 Conclusions: - The left ventricular systolic function is normal.? The visually estimated ejection fraction is between 60-65%. ? - No obvious valvular pathology seen on this study.? Assessment and Plan Assessment Anesthesia Assessment: Chart Reviewed Documented by User: Danielle Flores MD 09/15/22 14:29 [facility] Past Medical History Medical History Asthma Chronic kidney disease, stage 3 Depression Elevated liver enzymes Fibromyalgia Hepatitis C Hyperlipidemia Hypothyroidism Liver cirrhosis care home current use of insulin Type 2 diabetes mellitus with diabetic polyneuropathy Type 2 diabetes mellitus with hyperglycemia, with long-term current use of insulin Family History Family History Mother Diabetes Asthma Kidney stones HTN (hypertension) Brother Diabetes Father Bloodstream infection Family history of problems with anesthesia: No Surgical History Surgical History H/O oral surgery Hx of biopsy Hx of hand surgery History of Problems with Anesthesia: No Social History Social History Household Members: Spouse Are you a primary resident care aide to a significant other at home: No Do you presently have visiting nurse or other home services: No Alcohol intake: current Alcohol intake frequency: does not drink Patient Tobacco Use Status: Never used Tobacco Have you been hit, kicked, punched, or otherwise hurt by someone within the past year? If so, by whom?: No Are you DNR?: No Advance Directives: No Advance Directives Information Provided: Yes Advance Directives on File: No Nutrition Risks: Dental problems Patient : No FDLMP: due this week unable Poor oral hygiene: Yes (no teeth) Current occupational status: disabled Meds Allergies Allergy/AdvReac Type Severity Reaction Status Date / Time seafood Allergy Severe throat Verified 09/02/22 12:57 closes codeine [Tylenol-Codeine] Allergy Intermediate rash Verified 09/02/22 12:57 Home Medications Medication Instructions Recorded Confirmed Last Taken Type blood-glucose meter (FreeStyle #1 ea 08/23/20 01/26/22 Unknown History Lite Meter kit) escitalopram oxalate 20 mg tablet 20 mg PO DAILY 08/23/20 08/14/22 Unknown History gabapentin 300 mg capsule 300 mg PO DAILY 08/23/20 08/14/22 Unknown History lancets 28 gauge (FreeStyle #100 ea 08/23/20 07/01/21 Unknown History Lancets) albuterol sulfate 90 mcg/actuation 2 puff inhalation Q4-6H PRN 07/30/22 08/14/22 Unknown History aerosol inhaler (Ventolin HFA) Wheezing atorvastatin 20 mg tablet 20 mg PO DAILY 07/30/22 08/14/22 Unknown History buspirone 7.5 mg tablet 7.5 mg PO TID anxiety 07/30/22 08/14/22 Unknown History clonazepam 0.5 mg tablet 0.5 mg PO BID PRN Anxiety 07/30/22 08/14/22 Unknown History levothyroxine 25 mcg tablet 25 mcg PO DAILY 07/30/22 08/14/22 Unknown History lisinopril 10 mg tablet 10 mg PO DAILY 07/30/22 08/14/22 Unknown History trazodone 150 mg tablet 150 mg PO BEDTIME depressive 07/30/22 08/14/22 Unknown History disorder Exam Airway Mallampati Class: II TM Dist: >3cm Neck ROM: Full Loose/Missing/Broken Teeth: No Heart: rr Lungs: cta Assessment and Plan Final Anesthetic Review Family History of Problems with Anesthesia: No History of Problems with Anesthesia: No NPO: Yes ASA Class: III Patient Risk: Intermediate Procedure Risk: Low Anesthetic Plan Anesthetic Plan: MAC: and Agree w/ Assess. and Plan Disposition: Standard PACU
[2022-09-15 13:02] VITALS: BP 137/76; PULSE 82; RESP 18; TEMP 36.1; O2SAT 94
--- NOTE | 2022-09-15 13:03 | P.HPSUR_ITS ---
Pre-Procedural Eval Section A Date of Service: 09/15/22 Section B Chief Complaint: Abnormal results of liver function studies,cirrhos Relevant Family History (Specify if Yes): No Relevant Social History: None Present Medications: see Short Stay Collaborative assessment Medical History: Significant History (Asthma Chronic kidney disease, stage 3 Depression Elevated liver enzymes Fibromyalgia Hepatitis C Hyperlipidemia Hypothyroidism Liver cirrhosis nursing home current use of insulin Type 2 diabetes mellitus with diabetic polyneuropathy Type 2 diabetes mellitus with hyperglycemia, with long-term current u) History of Previous Operations: Relevant previous surgery/procedure and date(s) (H/O oral surgery Hx of biopsy Hx of hand surgery) Allergies: Allergies Allergy/AdvReac Type Severity Reaction Status Date / Time seafood Allergy Severe throat Verified 09/02/22 12:57 closes codeine [Tylenol-Codeine] Allergy Intermediate rash Verified 09/02/22 12:57 Review of Systems Sugical H&P ROS: Negative: Constitution, Cardiovascular, Respiratory, Neurol ogical, Psychiatric, Hem-Onc, Allergic/Immunologic, Gastrointestinal, Genitourinary, Musculoskeletal, Integumentary, Endocrine and Eyes/Ears/Nose/Throat Exam Surgical H&P Exam: Normal: HEENT, Normal: Heart, Normal: Lungs, Normal: Extremities, Normal: Abdomen, Normal: Skin and Normal: Neurological Plan Diagnosis/Plan: Unchanged I have reviewed the history and physical and performed a pertinent physical examination on my patient. No changes have occurred unless specified. Time Spent With Patient Time: Total time managing care of this patient today ____ minutes.
[2022-09-15 13:10] LABS: Glucose, Whole Blood 164 mg/dL (60-115)
[2022-09-15 13:13] LABS: Hematocrit 44.7 % (37.0-47.0); Hemoglobin 14.5 g/dl (12.0-16.0); Mean Corpuscular HGB Conc 32.4 g/dl (31.0-35.0); Mean Corpuscular Hemoglobin 30.3 pg (27.0-33.0); Mean Corpuscular Volume 93.3 fL (80.0-98.0); Mean Platelet Volume 10.5 fL (9.4-12.3); Platelet Count 144 X10*3/uL (160-400); Red Blood Count 4.79 X10*6/uL (4.20-5.50); Red Cell Distribution Width 14.1 % (11.0-16.0); White Blood Count 9.9 X10*3/uL (4.8-10.8)
[2022-09-15 13:18] LABS: INTERNATIONAL NORM RATIO 1.3 (0.9-1.1); Prothrombin Time 14.9 SEC (10.0-13.1)
[2022-09-15] MEDS: Lactated Ringers 1,000 ML 100 ML IVCONT (13:18)
[2022-09-15 13:28] LABS: Anion Gap 14 (12-20); Blood Urea Nitrogen 12 mg/dL (9-16); Calcium 9.5 mg/dL (8.4-10.2); Carbon Dioxide 25 mmol/L (22-29); Chloride 103 mmol/L (96-108); Creatinine Clr Calc Pharmacy 70.8; Estimated Glomerular Filt Rate > 60; Glucose Fasting 169 mg/dL (60-99); Potassium 4.4 mmol/L (3.3-5.1); Sodium 138 mmol/L (135-145)
--- NOTE | 2022-09-15 13:47 | PC.NURSE ---
pt unable to void attempted x3 dr donald aware period due this week
[2022-09-15 14:44] LABS: HCG Quantitative < 2 mIU/mL
--- NOTE | 2022-09-15 15:10 | P.OP_ITS ---
Operative Note Operative Note Date of Service: 09/15/22 Narrative: Operative Information Procedure Description: Colonoscopy Indication: constipation Anesthesia: MAC COLONOSCOPY Instrument: Olympus variable stiffness pediatric scope 190L Colonoscopy Monitoring: Vital signs and clinical assessment, continuous EKG monitoring, Pulse oximetry, Carbon Dioxide monitoring and blood pressure monitoring were done throughout the procedure. Colon withdrawal time was 7 minutes. Procedure: The patient was placed in the left lateral decubitis position and pre-procedure medications were administered. After a digital rectal examination of the ano-rectum, the video colonoscope was inserted into the rectum and advanced through the colon to the cecum/TI. The colonoscope was slowly withdrawn in a retrograde panoramic fashion and the colon mucosa was carefully examined including a retroflexed view of the rectum. Findings and interventions are described below. Procedure Difficulty: easy Findings: Terminal Ileum-normal Cecum:normal Ascending Colon: normal Transverse Colon -normal Descending Colon:normal Sigmoid Colon: mild diverticulosis Rectum: Retroflexion with small internal hemorrhoids, grade I Anorectum - normal Colon preparation: [place] Bowel Preparation Scale Right colon; 2 Transverse colon: 2 Left colon; 1-2 (0 = Unprepared colon segment with mucosa not seen due to solid stool that cannot be cleared. 1 = Portion of mucosa of the colon segment seen, but other areas of the colon segment not well seen due to staining, residual stool and/or opaque liquid. 2 = Minor amount of residual staining, small fragments of stool and/or opaque liquid, but mucosa of colon segment seen well. 3 = Entire mucosa of colon segment seen well with no residual staining, small fragments of stool or opaque liquid) Impression and Post Procedure Diagnosis: internal hemorrhoids diverticular disease Plan: High fiber diet leaflet Avoid straining at stool, epsom salts and sitz bath, anusol supps or cream Repeat Colonoscopy in 5 years due to fair prep or earlier if clinically indicated Above findings were reviewed with the patient and relevant handouts were provided if indicated.
[2022-09-15 15:16] VITALS: BP 106/72; PULSE 84; RESP 16; TEMP 36.1; O2SAT 97
[2022-09-15 15:31] VITALS: BP 101/77; PULSE 77; RESP 16; TEMP 36.1; O2SAT 97
== END 2022-09-15 16:04 | disposition home or self-care (01) ==
PROVIDERS: Anesthesiology; Nurse Practitioner; PCP Internal Medicine; Visit Provider Internal Medicine Gastroenterology
PROC: 0DJD8ZZ Inspection of Lower Intestinal Tract, Via Natural or Artificial Opening Endoscopic (ICD-10-PCS; CPT 45378; principal; 2022-09-15 13:20)
DX: Z12.11 Encounter for screening for malignant neoplasm of colon (principal); K74.69 Other cirrhosis of liver; K57.30 Diverticulosis of large intestine without perforation or abscess without bleeding; K64.0 First degree hemorrhoids; K59.04 Chronic idiopathic constipation; E11.22 Type 2 diabetes mellitus with diabetic chronic kidney disease; N18.30 Chronic kidney disease, stage 3 unspecified; E11.42 Type 2 diabetes mellitus with diabetic polyneuropathy; E78.5 Hyperlipidemia, unspecified; J45.909 Unspecified asthma, uncomplicated; M79.7 Fibromyalgia; Z79.4 Long term (current) use of insulin; Z88.8 Allergy status to other drugs, medicaments and biological substances
CPT/HCPCS: 45378; 36415; 80048; 82947; 84702; 85027; 85610

== ENCOUNTER → 2022-09-29 12:40 | Outpatient (BNVA) | payer MEDICAID, SELFPAY | PROVIDERS: PCP Internal Medicine; Visit Provider Nurse Practitioner Family | DX: K74.69 Other cirrhosis of liver (principal); K59.04 Chronic idiopathic constipation; B19.20 Unspecified viral hepatitis C without hepatic coma; Z98.890 Other specified postprocedural states | CPT/HCPCS: 99212 ==

== ENCOUNTER → 2022-10-06 12:43 | Outpatient (BNVA) | payer MEDICAID, SELFPAY | PROVIDERS: PCP Internal Medicine; Visit Provider Nurse Practitioner Family | DX: Z23 Encounter for immunization (principal) | CPT/HCPCS: 90471; 90746; 99211 ==

== ENCOUNTER → 2023-03-02 12:49 | Outpatient (BNVA) | payer MEDICAID, SELFPAY | PROVIDERS: PCP Internal Medicine; Visit Provider Nurse Practitioner Family | DX: Z23 Encounter for immunization (principal); K74.69 Other cirrhosis of liver; K59.1 Functional diarrhea; R10.11 Right upper quadrant pain | CPT/HCPCS: 90471; 90472; 90632; 90746; 99212 ==

== ENCOUNTER 2023-03-23 08:44 | Outpatient (REF) | payer MEDICAID, SELFPAY ==
--- NOTE | ~2023-03-23 | US_ITS ---
EXAMINATION: US ABDOMEN COMPLETE CLINICAL INFORMATION: An unspecified abdominal pain Liver biopsy on 04/15/2021. COMPARISON: Abdominal ultrasound 10/15/2020 TECHNIQUE: Real-time imaging of the abdominal viscera. FINDINGS: PANCREAS: The pancreas is obscured by bowel gas. ABDOMINAL AORTA: The proximal segment is normal caliber. The mid and distal abdominal aorta are obscured by bowel gas. INFERIOR VENA CAVA: Visualized portions are normal. LIVER: Coarse hepatic parenchymal pattern. The liver is normal in size. Mildly nodular contour. Parenchymal echogenicity is normal. No focal hepatic lesion. There is no intrahepatic biliary duct dilatation seen. GALLBLADDER: Cholelithiasis. The gallbladder is physiologically distended without evidence of sludge, polyps, wall thickening or pericholecystic fluid. COMMON BILE DUCT: The common bile duct is not well seen. Normal in caliber measuring 0.3 cm in diameter. RIGHT KIDNEY: Normal. No hydronephrosis. No renal calculi or focal parenchymal lesions. The kidney measures 10.7 cm in maximum dimension. Mild fullness of the renal pelvis, normal variant. LEFT KIDNEY: Normal. No hydronephrosis. No renal calculi or focal parenchymal lesions. The kidney measures 11.8 cm in maximum dimension. SPLEEN: Normal. The spleen measures 11.1 cm in maximum dimension. FREE FLUID: None. US/US abdomen complete IMPRESSION: 1. Coarsened hepatic parenchymal pattern with mildly heterogeneous contour suggests early cirrhosis. 2. No focal liver lesions. 3. Cholelithiasis.
[2023-03-23 09:33] LABS: Estimated Average Glucose 212 mg/dL
[2023-03-23 10:49] LABS: Alanine Aminotransferase 34 U/L (0-31); Albumin Level 4.1 g/dL (3.5-5.0); Alkaline Phosphatase 82 U/L (39-117); Aspartate Amino Transferase 38 U/L (5-31); Bilirubin Direct 0.2 mg/dL (0.0-0.5); Bilirubin Total 0.5 mg/dL (0.0-1.0); Lipase 108 U/L (8-78)
[2023-03-23 10:51] LABS: Ferritin 418 ng/mL (10-250)
== END 2023-03-23 08:45 | disposition home or self-care (01) ==
LOC: HO.US 08:44
PROVIDERS: PCP Internal Medicine; Visit Provider Nurse Practitioner Family
DX: R10.11 Right upper quadrant pain (principal); K74.60 Unspecified cirrhosis of liver; R74.8 Abnormal levels of other serum enzymes; E11.9 Type 2 diabetes mellitus without complications
CPT/HCPCS: 36415; 76700; 80076; 82728; 83036; 83690

== ENCOUNTER 2023-04-14 14:49 | Outpatient (AMB) | payer MEDICAID, SELFPAY ==
--- NOTE | 2023-04-14 14:56 | MHC.OFFVIS ---
Intake Vital Signs 04/14/23 14:57 Height 5 ft 4 in Weight 172 lb 6.424 oz BMI 29.6 BP 110/75 Blood Pressure Location Lt brachial Position Sitting Pulse 65 Intake Visit Reasons: abdominal discomfort Intake Note: Renata presents in office as a est.patient for a f/u for abdominal discomfort pt got bloodwork & ultrasound done PT CC: pt reports having RUQP pt denies any other GI Issues Emergency Medical Service Coordinator Required: Yes Emergency Medical Service Coordinator Language: Marshallese Accompanied by: Self / Same As Patient Allergies seafood Allergy (Severe, Verified 04/14/23 14:56) throat closes codeine [Tylenol-Codeine] Allergy (Intermediate, Verified 04/14/23 14:56) rash HPI abdominal discomfort HPI Details LAST VISIT: Liver cirrhosis Patient will be sent for ultrasound. Will check ferritin, liver panel. Hep B and A vaccines. Exam negative for ascites. High-protein, low salt, low fat diet discussed with patient. Printout in PDF version that lists food recommendations for people with liver cirrhosis given to patient Postprandial abdominal pain in right upper quadrant Postprandial right upper quadrant discomfort. Patient also reports diarrhea. Ultrasound to rule out cholelithiasis, cholecystitis. Negative Hillman sign on exam. Diarrhea Patient reports postprandial loose stools. Will check lipase, liver profile. Will check her A1c level. Patient states that she has not seen her PCP and has not had any labs done for some time. Discussed with patient avoiding dietary triggers. I will see patient in 2 months, sooner on as needed basis. Patient is agreeable to this plan and verbalizes understanding of instructions. She was given the opportunity to ask questions and all questions answered. ? Thank you for allowing me to participate in her care Plan Orders Orders Ferritin Today R74.8 Hemoglobin A1c Today E11.9 Lipase Today R10.9 Liver Panel Today R10.9 US abdomen complete Today K74.60, R10.11, R10.9 Hepatitis A Adult Immunization Today Z23 Hepatitis B Adult Immunization Today Z23 TODAY'S VISIT Patient is here today for follow-up and to discuss lab results and ultrasound results. Cholelithiasis without cholecystitis. Elevated lipase: Pancreatitis. Reports that she is being doing better, however occasionally she still has right upper quadrant discomfort. Discussed with patient diet choices. Avoiding food that is greasy or fried. Also avoiding food that is high in fat. Patient states that she is doing better and is making better choices. Patient denies any nausea or vomiting. Denies any dyspepsia, dysphagia or odynophagia. Patient denies melena, hematochezia, unintentional weight loss or ribbon like stools. Patient is taking MiraLax every day and reports that her bowels are moving good for the most part. Patient is no longer taking Linzess or Senokot. 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 Type 2 diabetes mellitus with diabetic polyneuropathy Type 2 diabetes mellitus with hyperglycemia, with long-term current use of insulin Surgical History H/O oral surgery Hx of biopsy Hx of colonoscopy Hx of hand surgery Family History Mother Diabetes Asthma Kidney stones HTN (hypertension) Brother Diabetes Father Bloodstream infection Social History Household Members: Spouse Are you a primary neonatal intensive care nurse to a significant other at home: No Do you presently have visiting nurse or other home services: No Alcohol intake: current Alcohol intake frequency: does not drink Patient Tobacco Use Status: Never used Tobacco Current occupational status: disabled Review of Systems Const Denies weight gain and Denies weight loss ENT Reports no additional complaints, Denies dysphagia and Denies odynophagia Card Reports no additional complaints Resp Reports no additional complaints GI Reports abdominal pain (RUQ), Denies belching, Denies melena, Reports bloating, Denies change in bowel habits, Denies dysphagia, Denies excessive flatus, Denies dyspepsia, Reports heartburn, Denies diarrhea, Denies loose stools, Denies nausea, Denies odynophagia and Denies vomiting Reports no additional complaints Musc Reports no additional complaints Neuro Reports no additional complaints Psych Reports no additional complaints Endo Reports no additional complaints Physical Exam Vital Signs: Last Vital Signs Pulse 65 04/14/23 14:57 BP 110/75 04/14/23 14:57 BMI result Body Mass Index 29.6 Const General: healthy appearing, no acute distress and well developed Nutritional Appearance: obese Orientation/consciousness: patient oriented x3 HEENT Head: Yes normal to inspection, Yes normocephalic and Yes atraumatic Face and sinus: Yes normal facial exam Mouth: Normal oral and palatal mucosa present Throat: Yes posterior oropharynx normal, Yes tonsils normal and Yes uvula midline Eyes General: appearance normal, both eyes and all related structures Neck Neck: Yes normal visual inspection, Yes full ROM and Yes trachea midline Thyroid: Thyroid normal Resp Effort & Inspection: normal respiratory effort, able to speak in complete sentences, no tracheal deviation and symmetric chest movement Auscultation: clear to auscultation bilaterally Cardio Rate: regular rate Heart sounds: S1 normal heart sound present and S2 normal heart sound present GI Inspection: Yes normal to inspection, No distended and Yes obesity Palpation (GI): Soft to palpation, not firm, nontender and No hepatosplenomegaly present Auscultation: normal bowel sounds General: Yes no CVA tenderness Back/Spine/Pelvis Back: no CVA tenderness Skin General skin exam: elasticity normal, turgor normal and dry skin Neuro General: patient oriented x3 Psych Appearance: grossly normal Mental Status: mental status grossly normal Speech and movement: Normal speech and movement present Affect: normal affect Results Reviewed Results Reviewed: ABDOMINAL ULTRASOUND 03/23/2023 FINDINGS: PANCREAS: The pancreas is obscured by bowel gas. ABDOMINAL AORTA: The proximal segment is normal caliber. The mid and distal abdominal aorta are obscured by bowel gas. INFERIOR VENA CAVA: Visualized portions are normal. LIVER: Coarse hepatic parenchymal pattern. The liver is normal in size. Mildly nodular contour. Parenchymal echogenicity is normal. No focal hepatic lesion. There is no intrahepatic biliary duct dilatation seen. GALLBLADDER: Cholelithiasis. The gallbladder is physiologically distended without evidence of sludge, polyps, wall thickening or pericholecystic fluid. COMMON BILE DUCT: The common bile duct is not well seen. Normal in caliber measuring 0.3 cm in diameter. RIGHT KIDNEY: Normal. No hydronephrosis. No renal calculi or focal parenchymal lesions. The kidney measures 10.7 cm in maximum dimension. Mild fullness of the renal pelvis, normal variant. LEFT KIDNEY: Normal. No hydronephrosis. No renal calculi or focal parenchymal lesions. The kidney measures 11.8 cm in maximum dimension. SPLEEN: Normal. The spleen measures 11.1 cm in maximum dimension. FREE FLUID: None. US/US abdomen complete IMPRESSION: ? 1. Coarsened hepatic parenchymal pattern with mildly heterogeneous contour suggests early cirrhosis. 2. No focal liver lesions. 3. Cholelithiasis. Laboratory Tests 03/23/23 09:11 Ferritin 418 H Total Bilirubin 0.5 Direct Bilirubin 0.2 AST 38 H ALT 34 H Lipase 108 H Assessment & Plan Assessment & Plan (1) RUQ abdominal pain: Code(s): R10.11 - Right upper quadrant pain Plan: Will send patient for a HIDA scan. Cholelithiasis without cholecystitis. Patient was encouraged to avoid food that is high in fat (2) Liver cirrhosis: Code(s): K74.60 - Unspecified cirrhosis of liver Qualifiers: Hepatic cirrhosis type: other cirrhosis Qualified Code(s): K74.69 - Other cirrhosis of liver Plan: High-protein diet for patients with liver cirrhosis discussed with patient. List of food the recommended given to patient. Continue avoiding alcohol, Tylenol (3) Elevated liver enzymes: Code(s): R74.8 - Abnormal levels of other serum enzymes Plan: Will do periodic liver enzymes (4) GERD (gastroesophageal reflux disease): Code(s): K21.9 - Gastro-esophageal reflux disease without esophagitis Qualifiers: Esophagitis presence: esophagitis presence not specified Qualified Code(s): K21.9 - Gastro-esophageal reflux disease without esophagitis Plan: Start omeprazole every morning half an hour before breakfast. Patient was encouraged to avoid dietary triggers and late night snacking. Keeping her blood sugars under control stressed with patient. Patient reports to have epigastric pain and right upper quadrant pain. History of pancreatitis in the past. Will rule out pancreatic insufficiency. Patient reports occasional postprandial abdominal bloating will order simethicone. I will see patient in 3 months, sooner on as needed basis. Patient is agreeable to this plan and verbalizes understanding of instructions. She was given the opportunity to ask questions and all questions answered. Thank you for allowing me to participate in her care Orders: Orders NM hepatobiliary w pharm 04/14/23 R10.11 - Right upper quadrant pain Pancreatic Elastase-1 04/14/23 R10.9 - Unspecified abdominal pain Medications: New omeprazole 20 mg PO DAILY 30 caps 3RF K21.9 - Gastro-esophageal reflux disease without esophagitis simethicone (Gas Relief (simethicone)) 125 mg PO TID-QID PRN 120 caps 2RF abdominal distention R14.0 - Abdominal distension (gaseous) Discontinued sennosides Discontinued Reason: Patient no longer taking 17.2 mg (2 x 8.6 mg) PO BEDTIME 180 tabs 3RF for constipation K59.00 - Constipation, unspecified linaclotide Discontinued Reason: Patient no longer taking 145 mcg PO DAILY 30 caps 2RF Coding Level of Care Code Est Pt Level 4 (79585) Diagnoses RUQ abdominal pain R10.11 Liver cirrhosis K74.69 Hepatic cirrhosis type: other cirrhosis Elevated liver enzymes R74.8 GERD (gastroesophageal reflux disease) K21.9 Esophagitis presence: esophagitis presence not specified Time Spent (min) 35 Comment 20 minutes spent with patient and additional 15 minutes spent reviewing her records
[2023-04-14 14:57] VITALS: BP 110/75; PULSE 65; BMI 29.6
== END 2023-04-14 16:18 | disposition home or self-care (01) ==
PROVIDERS: PCP Internal Medicine; Visit Provider Nurse Practitioner Family
DX: R10.11 Right upper quadrant pain (principal); K74.69 Other cirrhosis of liver; R74.8 Abnormal levels of other serum enzymes; K21.9 Gastro-esophageal reflux disease without esophagitis
CPT/HCPCS: 99214

== ENCOUNTER → 2023-04-14 14:49 | Outpatient (BNVA) | payer MEDICAID, SELFPAY | PROVIDERS: PCP Internal Medicine; Visit Provider Nurse Practitioner Family | DX: R10.11 Right upper quadrant pain (principal); K59.00 Constipation, unspecified; E11.22 Type 2 diabetes mellitus with diabetic chronic kidney disease; E11.65 Type 2 diabetes mellitus with hyperglycemia; E11.42 Type 2 diabetes mellitus with diabetic polyneuropathy; N18.30 Chronic kidney disease, stage 3 unspecified; Z79.4 Long term (current) use of insulin | CPT/HCPCS: 99214 ==

== ENCOUNTER 2023-04-22 08:50 | Outpatient (REF) | payer MEDICAID, SELFPAY ==
[2023-04-22 12:35] LABS: Anion Gap 12 (12-20); Blood Urea Nitrogen 11 mg/dL (9-16); Calcium 9.3 mg/dL (8.4-10.2); Carbon Dioxide 29 mmol/L (22-29); Chloride 105 mmol/L (96-108); Cholesterol 144 mg/dL; Estimated Glomerular Filt Rate 58; Glucose Random 265 mg/dL (60-115); HDL Cholesterol 27 mg/dL; LDL Cholesterol Calculated 57 mg/dl; Potassium 4.9 mmol/L (3.3-5.1); Sodium 141 mmol/L (135-145); Triglycerides 300 mg/dL
== END 2023-04-22 08:51 | disposition home or self-care (01) ==
LOC: HO.CHCLDS 08:50
PROVIDERS: Visit Provider Internal Medicine
DX: E11.65 Type 2 diabetes mellitus with hyperglycemia (principal); Z79.4 Long term (current) use of insulin
CPT/HCPCS: 80048; 80061; 82043

== ENCOUNTER 2023-05-04 11:40 | Outpatient (REF) | payer MEDICAID, SELFPAY | END 2023-05-04 11:41 | disposition home or self-care (01) | LOC: HO.MAMMO 11:40 | PROVIDERS: PCP Internal Medicine; Visit Provider Internal Medicine | DX: Z12.31 Encounter for screening mammogram for malignant neoplasm of breast (principal) | CPT/HCPCS: 77063; 77067 ==

== ENCOUNTER → 2023-05-04 12:30 | Outpatient (BNV) | payer MEDICAID, SELFPAY | PROVIDERS: PCP Internal Medicine; Visit Provider Radiology Diagnostic Radiology | DX: Z12.31 Encounter for screening mammogram for malignant neoplasm of breast (principal) | CPT/HCPCS: 77063; 77067 ==

== ENCOUNTER → 2023-05-13 09:44 | Outpatient (REF) | payer MEDICAID, SELFPAY ==
--- NOTE | ~2023-05-13 | NM_ITS ---
EXAMINATION: BILIARY TRACT IMAGING STUDY WITH CCK CLINICAL INFORMATION: Right upper quadrant abdominal pain.. COMPARISON: Abdominal ultrasound done on 03/23/2023.. TECHNIQUE: Serial gamma scintillation camera images were obtained over the abdomen for a total observation period of 60 minutes following the intravenous administration of 5 mCi Tc-99m mebrofenin. FINDINGS: There is good concentration of activity in the liver by 5 minutes post injection. Biliary activity is visualized by 10 minutes. The gallbladder is well visualized by 25 minutes. Small bowel is well visualized by 30 minutes. At 60 minutes post radiopharmaceutical injection, a 30-minute infusion of 1.6 micrograms Sincalide was then begun and an additional 40 minutes of images were obtained. There is slightly impaired emptying of the gallbladder. By the end of the study there is good clearance of activity from the liver and visualization of diffuse small bowel activity. The calculated gallbladder ejection fraction is 33% (normal gallbladder ejection fraction is greater than 35%). NM/NM hepatobiliary w pharm IMPRESSION: Visualization of the gallbladder is evidence of a patent cystic duct and strong evidence against the diagnosis of acute cholecystitis. The common bile duct is patent. Gallbladder emptying and ejection fraction are slightly below normal. Liver function appears normal.
== END ==
LOC: HO.NUCMED 09:44
PROVIDERS: PCP Internal Medicine; Visit Provider Nurse Practitioner Family
DX: R10.11 Right upper quadrant pain (principal)
CPT/HCPCS: 78227; A9537; J2805

== ENCOUNTER 2023-07-02 08:31 | Outpatient (REF) | payer MEDICAID, SELFPAY ==
[2023-07-02 11:50] LABS: Estimated Average Glucose 214 mg/dL; Hemoglobin A1c % 9.1 % (<6.0)
[2023-07-02 12:28] LABS: HIV AB/AG Nonreactive (Nonreactive); HIV Num 1 0.06 S/CO (0.00-0.99)
[2023-07-02 12:47] LABS: Creatinine Urine 118.79 mg/dL; Microalbum/Creatinine Ratio Ur 27.7 ug/mg cr (<30)
== END 2023-07-02 08:32 | disposition home or self-care (01) ==
LOC: HO.HHCL 08:31
PROVIDERS: Visit Provider Internal Medicine
DX: Z11.4 Encounter for screening for human immunodeficiency virus [HIV] (principal); E11.65 Type 2 diabetes mellitus with hyperglycemia; Z79.4 Long term (current) use of insulin
CPT/HCPCS: 36415; 82043; 82570; 83036; 87389

== ENCOUNTER 2023-07-12 12:48 | Outpatient (AMB) | payer MEDICAID, SELFPAY ==
--- NOTE | 2023-07-12 12:50 | A.OFFVIS_ITS ---
Intake Vital Signs 07/12/23 12:51 Height 5 ft 4 in Weight 180 lb 5.41 oz BMI 31.0 BP 122/70 Blood Pressure Location Lt brachial Position Sitting Pulse 82 Pulse Source Pulse Oximeter Intake Visit Reasons: DM Intake Note: Patient presents today to follow up on Type Diabetes Mellitus. Patient receives DME supplies through: Pharmacy Last Diabetic Eye exam: Over one year Last Podiatry Visit: None Random Glucose: 172 mg/dl HgA1C: 9.1% 07/02/23 Programming Internship Required: Yes Programming Internship Language: Angle Roll Operator Name: [id number] Information Interpreted: non-clinical & clinical Accompanied by: Self / Same As Patient Allergies seafood Allergy (Severe, Verified 07/12/23 12:59) throat closes codeine [Tylenol-Codeine] Allergy (Intermediate, Verified 07/12/23 12:59) rash HPI HPI Comments History of Present Illness Details Patient is 53-year-old female with DM type 2 diagnosed over 5 years ago, who presents for continued management of diabetes. Patient was last seen by Kera Mas NP on 01/26/2022 Past medical history:DM2, Hypothyroidism, CKD 3, Fibromyalgia, cirrhosis Micro and macrovascular complications: + nephropathy, + neuropathy, Diabetes medications: Tresiba 74 units, Humalog 28 units TID (14 units for ensure). Jardiance 25 mg. Trulicity 3.0mg/week. pioglitazone 15mg? taking . patient intolerant of metformin Glucometer download shows she is checking her point cares once a day. Average glucose is 277 with range 142 to 458. 8% range with 92% hyperglycemia and no hypoglycemia Symptoms reported: occasional numbness, tingling, cramping in lower extremities Hypoglycemia: 2-3 times a day mostly occur during the day. 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 Type 2 diabetes mellitus with diabetic polyneuropathy Type 2 diabetes mellitus with hyperglycemia, with long-term current use of insulin Surgical History H/O oral surgery Hx of biopsy Hx of colonoscopy Hx of hand surgery Family History Mother Diabetes Asthma Kidney stones HTN (hypertension) Brother Diabetes Father Bloodstream infection Social History Household Members: Spouse Are you a primary director of home care hospice to a significant other at home: No Do you presently have visiting nurse or other home services: No Alcohol intake: current Alcohol intake frequency: does not drink Patient Tobacco Use Status: Never used Tobacco Current occupational status: disabled Physical Exam Vital Signs: Last Vital Signs Pulse 82 07/12/23 12:51 BP 122/70 07/12/23 12:51 BMI result Body Mass Index 31.0 Absence of Cushingoid features. Absence of acromegalic features. Neck exam reveals nl size thyroid about 15 gms. No thyroid nodules palpable. No carotid bruits present. Lungs CTA. Heart S1 S2, Reg R/R. No M/R/ G. Skin exam reveals absence of vitiligo or acanthosis nigricans. Abdominal exam reveals Soft NT/ND with NA BS. No organomegaly present. Neck Other: . Extrem Other: Visual exam of foot performed. No ulcerations or open lesions. No onchomycosis, no callouses.Pulses 2 + distally Sensation intact to monofilament exam. Vibratory sensation sensed is intact with 128 Hz tuning fork Assessment & Plan Assessment & Plan (1) Type 2 diabetes mellitus with diabetic chronic kidney disease: Code(s): E11.22 - Type 2 diabetes mellitus with diabetic chronic kidney disease Plan: This is a 53-year-old female with a history of type 2 diabetes being treated with Jardiance, Trulicity, Actos and basal-bolus insulin with poor glycemic control and known microvascular complications namely CKD and neuropathy The plan is to have the patient check her point cares pre and post meals. Will talk to patient about initiating a Sensor like Oren. Can make any adjustments to insulin regimen with lack of data. Will refer for follow-up to adaptive physical educator. With the help of a medical staff credentialing coordinator went over relationship of poor glycemic control to development and progression complication Coding Level of Care Code Est Pt Level 4 (70560) Diagnoses Type 2 diabetes mellitus with diabetic chronic kidney disease E11.22
[2023-07-12 12:51] VITALS: BP 122/70; PULSE 82; BMI 31.0
[2023-07-12 13:06] LABS: Glucose, Whole Blood 172 mg/dL (60-115)
== END 2023-07-12 13:32 | disposition home or self-care (01) ==
PROVIDERS: PCP Internal Medicine; Visit Provider Internal Medicine Endocrinology, Diabetes & Metabolism
DX: E11.22 Type 2 diabetes mellitus with diabetic chronic kidney disease (principal)
CPT/HCPCS: 99214

== ENCOUNTER → 2023-07-12 12:48 | Outpatient (BNVA) | payer MEDICAID, SELFPAY | PROVIDERS: PCP Internal Medicine; Visit Provider Internal Medicine Endocrinology, Diabetes & Metabolism | DX: E11.22 Type 2 diabetes mellitus with diabetic chronic kidney disease (principal); N18.30 Chronic kidney disease, stage 3 unspecified; E11.40 Type 2 diabetes mellitus with diabetic neuropathy, unspecified; Z79.4 Long term (current) use of insulin; Z79.85 Long-term (current) use of injectable non-insulin antidiabetic drugs; Z79.84 Long term (current) use of oral hypoglycemic drugs | CPT/HCPCS: 82947; 99212 ==

== ENCOUNTER 2023-08-18 12:34 | Outpatient (REF) | payer MEDICAID, SELFPAY | END 2023-08-18 12:35 | disposition home or self-care (01) | LOC: HO.HOSX 12:34 | PROVIDERS: Visit Provider Physician Assistant | DX: Z13.89 Encounter for screening for other disorder (principal) ==

== ENCOUNTER 2023-10-11 15:29 | Outpatient (REF) | payer MEDICAID, SELFPAY | END 2023-10-11 15:30 | disposition home or self-care (01) | LOC: HO.HOSX 15:29 | PROVIDERS: Visit Provider Physician Assistant | DX: Z13.89 Encounter for screening for other disorder (principal) ==

== ENCOUNTER 2023-10-13 09:58 | Outpatient (REF) | payer MEDICAID, SELFPAY ==
--- NOTE | ~2023-10-13 | XR_ITS ---
EXAMINATION: XR HAND, RIGHT CLINICAL INFORMATION: Pain in right hand COMPARISON: None available. TECHNIQUE: PA, lateral, and oblique views of the right hand. FINDINGS: The bones are intact. No fracture. Alignment is anatomic. There is mild narrowing of the first metacarpophalangeal joint. There is minimal loss of height of the PIP and DIP joint joints of the fingers. No lytic process. XR/XR hand RT min 3V IMPRESSION: Degenerative changes of the right hand, without significant change since 10/17/2019
== END 2023-10-13 09:59 | disposition home or self-care (01) ==
LOC: HO.HOSX 09:58
PROVIDERS: Visit Provider Physician Assistant
DX: M79.641 Pain in right hand (principal); G56.01 Carpal tunnel syndrome, right upper limb; M72.0 Palmar fascial fibromatosis [Dupuytren]
CPT/HCPCS: 73130; 99212

== ENCOUNTER 2023-10-13 11:26 | Outpatient (AMB) | payer MEDICAID, SELFPAY ==
--- NOTE | 2023-10-13 11:39 | MHC.OFFVIS ---
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 Pt states the pain goes from her hand up her arm. Pt denies any swelling but states she does have numbness and tingling in her whole hand. Pt states she takes naproxen which does help with pain. 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 She states she has pain in her hand which radiates up to her arm. She denies any swelling however she does c/o numbness and tingling in her whole hand. She takes naproxen for her pain with benefits. 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 Chronic kidney disease, stage 3 Surgical History Hx of colonoscopy Hx of hand surgery Hx of biopsy H/O oral surgery Family History Mother Diabetes Asthma Kidney stones HTN (hypertension) Brother Diabetes Father Bloodstream infection Social History Household Members: Spouse Are you a primary director day care center to a significant other at home: No Do you presently have visiting nurse or other home services: No Alcohol intake: current Alcohol intake frequency: does not drink Patient Tobacco Use Status: Never used Tobacco Current occupational status: disabled Review of Systems Const All systems reviewed & are unremarkable except as noted in HPI and below Physical Exam Const General: cooperative, healthy appearing, comfortable, no acute distress, well developed and alert Orientation/consciousness: patient oriented x3 HEENT Head: Yes normal to inspection, Yes normocephalic and Yes atraumatic Eyes General: appearance normal, both eyes and all related structures Resp Effort & Inspection: normal respiratory effort and able to speak in complete sentences Cardio Rate: regular rate Peripheral pulses: Peripheral pulses 2+ throughout GI Palpation (GI): Soft to palpation Skin Lesions: no lesions Rashes: no rashes Neuro General: patient oriented x3 Extrem Other: Right wrist: Normal to inspection. Tenderness over the carpal canal. Numbness and tingling over the median nerve distribution of the right hand. Able to make a full fist and fully extend all fingers. Positive Tinel's. Right hand: Normal to inspection with fibrotic cord like structures in the palm in line with the ring and small finger. No flexion contracture noted. Similar findings on the left hand in terms of fibrotic cordlike structures in the palm in line with the small finger. Results Reviewed Results Reviewed: X-rays of the right hand obtained in the office today are negative for any acute or chronic abnormalities. Assessment & Plan Assessment & Plan (1) Acute carpal tunnel syndrome of right wrist: Code(s): G56.01 - Carpal tunnel syndrome, right upper limb (2) Dupuytren contracture: Code(s): M72.0 - Palmar fascial fibromatosis [Dupuytren] Plan She was fit for a Velcro wrist splint in the office today. She was also sent for an EMG/nerve conduction study to further evaluate the etiology of her numbness. I did explain the condition in palm and explain that this is likely due to the fibrotic scarring of the tendon which may benefit from a debridement. She will see with Dr. Bennett to discuss this further. She is content with this plan and will follow-up once the scan is complete. Orders: Orders XR hand RT min 3V Today M79.641 - Pain in right hand XR hand RT min 3V 08/18/23 M79.641 - Pain in right hand Patient Instructions: Scribed for Cristhian Vann PA-C, by Yahir Hardin medical delivery technician, on 10/13/2023 at 11:30 AM Cristhian LANG PA-C, have personally reviewed and agree with the information entered by the scribe. Coding Level of Care Code New Pt Level 3 (66989) Diagnoses Acute carpal tunnel syndrome of right wrist G56.01 Dupuytren contracture M72.0
== END 2023-10-13 12:11 | disposition home or self-care (01) ==
PROVIDERS: PCP Internal Medicine; Visit Provider Physician Assistant
DX: G56.01 Carpal tunnel syndrome, right upper limb (principal); M72.0 Palmar fascial fibromatosis [Dupuytren]
CPT/HCPCS: 99203

== ENCOUNTER 2023-11-03 12:31 | Outpatient (AMB) | payer MEDICAID, SELFPAY ==
--- NOTE | 2023-11-03 12:54 | A.OFFVIS_ITS ---
Intake Vital Signs 11/03/23 12:55 Height 5 ft 4 in Weight 179 lb 7.3 oz BMI 30.8 BP 130/62 Blood Pressure Location Lt brachial Position Sitting Pulse 65 Pulse Source Pulse Oximeter Intake Visit Reasons: 2 Month follow up Intake Note: Pt presents to the office today for a 2 month follow up. Pt states she is feeling well and denies any concerns at this time. 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 Cholelithiasis without cholecystitis. Patient was encouraged to avoid food that is high in fat Liver cirrhosis High-protein diet for patients with liver cirrhosis discussed with patient. List of food the recommended given to patient. Continue avoiding alcohol, Tylenol Elevated liver enzymes Will do periodic liver enzymes GERD (gastroesophageal reflux disease) Start omeprazole every morning half an hour before breakfast. Patient was encouraged to avoid dietary triggers and late night snacking. Keeping her blood sugars under control stressed with patient. Patient reports to have epigastric pain and right upper quadrant pain. History of pancreatitis in the past. Will rule out pancreatic insufficiency. Patient reports occasional postprandial abdominal bloating will order simethicone. I will see patient in 3 months, sooner on as needed basis. Patient is agreeable to this plan and verbalizes understanding of instructions. She was given the opportunity to ask questions and all questions answered. ? Thank you for allowing me to participate in her care Plan Orders Orders NM hepatobiliary w pharm 04/14/23 R10.11 - Right upper quadrant pain Pancreatic Elastase-1 04/14/23 R10.9 - Unspecified abdominal pain Medications New omeprazole 20 mg PO DAILY 30 caps 3RF K21.9 - Gastro-esophageal reflux disease without esophagitis simethicone (Gas Relief (simethicone)) 125 mg PO TID-QID PRN 120 caps 2RF abdominal distention R14.0 - Abdominal distension (gaseous) Discontinued sennosides Discontinued Reason: Patient no longer taking 17.2 mg (2 x 8.6 mg) PO BEDTIME 180 tabs 3RF for constipation K59.00 - Constipation, unspecified linaclotide Discontinued Reason: Patient no longer taking 145 mcg PO DAILY 30 caps 2RF TODAY'S VISIT Patient is here today for follow-up. Patient reports that she has been feeling better since the last time I have seen her. Patient states that she is taking omeprazole daily and her symptoms of acid reflux are suppressed. Patient no longer has abdominal pain or discomfort. HIDA scan was normal. Mildly decreased gallbladder emptying otherwise no abnormalities. Patient reports that she continues to be constipated from time to time. States that Senokot was not helpful and Linzess cause too much diarrhea. Patient denies melena, hematochezia, unintentional weight loss or ribbon like stools. Patient denies any dyspepsia, dysphagia or odynophagia. [facility] Medical History Liver cirrhosis Hyperlipidemia Hepatitis C Elevated liver enzymes Hypothyroidism Depression Fibromyalgia Asthma Type 2 diabetes mellitus with diabetic polyneuropathy Type 2 diabetes mellitus with hyperglycemia, with long-term current use of insulin retirement current use of insulin Chronic kidney disease, stage 3 Surgical History Hx of colonoscopy Hx of hand surgery Hx of biopsy H/O oral surgery Family History Mother Diabetes Asthma Kidney stones HTN (hypertension) Brother Diabetes Father Bloodstream infection Social History Household Members: Spouse Are you a primary wound care coordinator to a significant other at home: No Do you presently have visiting nurse or other home services: No Alcohol intake: current Alcohol intake frequency: does not drink Patient Tobacco Use Status: Never used Tobacco Current occupational status: disabled Review of Systems Const Denies weight gain and Denies weight loss ENT Reports no additional complaints, Denies dysphagia and Denies odynophagia Card Reports no additional complaints Resp Reports no additional complaints GI Denies abdominal pain, Denies belching, Denies melena, Denies bloating, Denies change in bowel habits, Reports constipation, Denies dysphagia, Denies excessive flatus, Denies dyspepsia, Denies heartburn, Denies diarrhea, Denies loose stools, Denies nausea, Denies odynophagia and Denies vomiting Reports no additional complaints Musc Reports no additional complaints Neuro Reports no additional complaints Psych Reports no additional complaints Endo Reports no additional complaints Physical Exam Vital Signs: Last Vital Signs Pulse 65 11/03/23 12:55 BP 130/62 11/03/23 12:55 BMI result Body Mass Index 30.8 Const General: healthy appearing, no acute distress and well developed Nutritional Appearance: well nourished Orientation/consciousness: patient oriented x3 Resp Effort & Inspection: normal respiratory effort, able to speak in complete sentences, no tracheal deviation and symmetric chest movement Auscultation: clear to auscultation bilaterally Cardio Rate: regular rate GI Inspection: Yes normal to inspection and No distended Palpation (GI): Soft to palpation, not firm, nontender and No hepatosplenomegaly present Auscultation: normal bowel sounds General: Yes no CVA tenderness Back/Spine/Pelvis Back: no CVA tenderness Skin General skin exam: elasticity normal, turgor normal and dry skin Neuro General: patient oriented x3 Psych Appearance: grossly normal Mental Status: mental status grossly normal Results Reviewed Results Reviewed: HIDA SCAN FINDINGS: There is good concentration of activity in the liver by 5 minutes post injection. Biliary activity is visualized by 10 minutes. The gallbladder is well visualized by 25 minutes. Small bowel is well visualized by 30 minutes. At 60 minutes post radiopharmaceutical injection, a 30-minute infusion of 1.6 micrograms Sincalide was then begun and an additional 40 minutes of images were obtained. There is slightly impaired emptying of the gallbladder. By the end of the study there is good clearance of activity from the liver and visualization of diffuse small bowel activity. The calculated gallbladder ejection fraction is 33% (normal gallbladder ejection fraction is greater than 35%). NM/NM hepatobiliary w pharm IMPRESSION: Visualization of the gallbladder is evidence of a patent cystic duct and strong evidence against the diagnosis of acute cholecystitis. The common bile duct is patent. Gallbladder emptying and ejection fraction are slightly below normal. Liver function appears normal. Assessment & Plan Assessment & Plan (1) Liver cirrhosis: Code(s): K74.60 - Unspecified cirrhosis of liver Qualifiers: Hepatic cirrhosis type: other cirrhosis Qualified Code(s): K74.69 - Other cirrhosis of liver (2) Elevated liver enzymes: Code(s): R74.8 - Abnormal levels of other serum enzymes (3) RUQ abdominal pain: Code(s): R10.11 - Right upper quadrant pain (4) GERD (gastroesophageal reflux disease): Code(s): K21.9 - Gastro-esophageal reflux disease without esophagitis Qualifiers: Esophagitis presence: esophagitis presence not specified Qualified Code(s): K21.9 - Gastro-esophageal reflux disease without esophagitis Plan Continue omeprazole daily. Patient will have ultrasound repeated with elastography for staging. Continue low-fat diet blood work to be done before next appointment as well to rule out autoimmune disorders. Patient will start taking Dulcolax tablets daily to help her move her bowels. I will see her in 2 months, sooner on as needed basis. Patient is agreeable to this plan and verbalizes understanding of instructions. She was given the opportunity to ask questions and all questions answered. Thank you for allowing me to participate in her care Orders: Orders Alpha Fetoprotein Today R79.89 - Other specified abnormal findings of blood chemistry C Reactive Protein Today K58.9 - Irritable bowel syndrome without diarrhea IRON PROFILE Today D64.9 - Anemia, unspecified Ferritin Today R74.8 - Abnormal levels of other serum enzymes Mitochondrial Antibody Today R79.89 - Other specified abnormal findings of blood chemistry Liver Fibrosis Pnl Today R74.8 - Abnormal levels of other serum enzymes Liver Panel Today R74.01 - Elevation of levels of liver transaminase levels US abdomen nunez w elastography Today R74.01 - Elevation of levels of liver transaminase levels Hemoglobin A1c Today E11.9 - Type 2 diabetes mellitus without complications Prothrombin Time INR Today R74.8 - Abnormal levels of other serum enzymes Smooth Muscle Antibody Today R79.89 - Other specified abnormal findings of blood chemistry Medications: New bisacodyl (Dulcolax (bisacodyl)) 10 mg (2 x 5 mg) PO BEDTIME 180 tabs 4RF Coding Level of Care Code Est Pt Level 4 (25373) Diagnoses Other cirrhosis of liver K74.69 Hepatic cirrhosis type: other cirrhosis Elevated liver enzymes R74.8 RUQ abdominal pain R10.11 Gastroesophageal reflux disease, unspecified whether esophagitis present K21.9 Esophagitis presence: esophagitis presence not specified Time Spent (min) 35 Comment 20 minutes spent with patient and additional 15 minutes spent reviewing her records
[2023-11-03 12:55] VITALS: BP 130/62; PULSE 65; BMI 30.8
== END 2023-11-03 13:21 | disposition home or self-care (01) ==
PROVIDERS: PCP Internal Medicine; Visit Provider Nurse Practitioner Family
DX: K74.69 Other cirrhosis of liver (principal); R74.8 Abnormal levels of other serum enzymes; R10.11 Right upper quadrant pain; K21.9 Gastro-esophageal reflux disease without esophagitis
CPT/HCPCS: 99214

== ENCOUNTER → 2023-11-03 12:31 | Outpatient (BNVA) | payer MEDICAID, SELFPAY | PROVIDERS: PCP Internal Medicine; Visit Provider Nurse Practitioner Family | DX: K74.69 Other cirrhosis of liver (principal); K21.9 Gastro-esophageal reflux disease without esophagitis; R74.8 Abnormal levels of other serum enzymes; R10.11 Right upper quadrant pain | CPT/HCPCS: 99212 ==

== ENCOUNTER 2023-11-08 12:49 | Outpatient (AMB) | payer MEDICAID, SELFPAY ==
--- NOTE | 2023-11-08 12:56 | A.OFFVIS_ITS ---
Intake Vital Signs 11/08/23 12:57 Height 5 ft 4 in Weight 180 lb 5.41 oz BMI 31.0 BP 118/68 Blood Pressure Location Lt brachial Position Sitting Pulse 80 Pulse Source Pulse Oximeter Intake Visit Reasons: f/u Type 2 DM-confirmed Intake Note: Patient present today to follow up on Type 2 Diabetes Mellitus. Patient receives DME supplies through: Pharmacy Last Diabetic Eye exam: 09/2023 Last Podiatry Visit: None Random Glucose: 69 mg/dl 1:00pm. 79mg/dl 1:24pm. HgA1C: 9.2% Marketing Copywriter Required: Yes Marketing Copywriter Language: Cable Tool Operator Name: Frankie Oliveira Information Interpreted: non-clinical & clinical Accompanied by: Self / Same As Patient Allergies seafood Allergy (Severe, Verified 11/08/23 13:02) throat closes codeine [Tylenol-Codeine] Allergy (Intermediate, Verified 11/08/23 13:02) rash Medication List - Last Reconciled 11/08/23 by Justin Auguste MD albuterol sulfate 90 mcg/actuation (Ventolin HFA) 2 puffs inhalation Q4-6H PRN atorvastatin 20 mg PO DAILY bisacodyl (Dulcolax (bisacodyl)) 10 mg (2 x 5 mg) PO BEDTIME blood sugar diagnostic (FreeStyle Lite Strips) As directed blood-glucose meter (FreeStyle Lite Meter kit) As directed clonazepam 0.5 mg PO BID PRN docusate sodium 200 mg (2 x 100 mg) PO BEDTIME escitalopram oxalate 20 mg PO DAILY flash glucose scanning reader (FreeStyle Oren 2 [place]) As directed flash glucose sensor (FreeStyle Oren 2 Sensor kit) As directed change every 14 days gabapentin 300 mg PO DAILY hydroxyzine HCl 25 mg PO BID PRN insulin degludec (Tresiba FlexTouch U-200 insulin) 74 units (0.37 mL) subcut DAILY 30 days insulin lispro (Humalog KwikPen (U-100) Insulin) 24 units (0.24 mL) subcut TID 30 days lancets (FreeStyle Lancets) As directed levothyroxine 25 mcg PO DAILY lisinopril 10 mg PO DAILY omeprazole 20 mg PO DAILY simethicone (Gas Relief (simethicone)) 125 mg PO TID-QID PRN tirzepatide (Mounjaro) 2.5 mg (0.5 mL) subcut QWEEK 4 weeks trazodone 150 mg PO BEDTIME HPI HPI Comments History of Present Illness Details Patient is 53-year-old female with DM type 2 diagnosed over 5 years ago, who presents for continued management of diabetes. Past medical history:DM2, Hypothyroidism, CKD 3, Fibromyalgia, cirrhosis Micro and macrovascular complications: + nephropathy, + neuropathy, Diabetes medications: Tresiba 74 units , Humalog 28 units TID (14 units for ensure). Jardiance 25 mg not taking because of Gi effects . Trulicity 3.0mg/week. pioglitazone 15mg?not taking . patient intolerant of metformin Oren download shows the sensor is being use 87% of the time. Average glucose is 176 with G mi of 7.5% and variability 26.2%. 56% range with 43% hyperglycemia and 1% hypoglycemia most of the hypoglycemia is occurring overnight with drop in point of care after dinner eported: occasional numbness, tingling, cramping in lower extremities Hypoglycemia: occasionally Hyperglycemia: denies urinary frequency, + nocturia (1x/night) + polydypsia Exercise: walks one hour on most days Eye exam: appt 09/2023 Laboratory Tests 10/29/21 01/22/22 01/22/22 13:48 09:07 09:07 Creatinine 0.90 Estimated GFR > 60 Fasting Glucose 66 Hgb A1c (Clinic) 10.0 H Triglycerides 105 Cholesterol 162 D LDL Cholesterol Di rect 103 H LDL Cholesterol, C alc 102 HDL Cholesterol 39 25-OH Vitamin D To reagan 21.3 PFSH Medical History Liver cirrhosis Hyperlipidemia Hepatitis C Elevated liver enzymes Hypothyroidism Depression Fibromyalgia Asthma Type 2 diabetes mellitus with diabetic polyneuropathy Type 2 diabetes mellitus with hyperglycemia, with long-term current use of insulin intermediate manager current use of insulin Chronic kidney disease, stage 3 Surgical History Hx of colonoscopy Hx of hand surgery Hx of biopsy H/O oral surgery Family History Mother Diabetes Asthma Kidney stones HTN (hypertension) Brother Diabetes Father Bloodstream infection Social History Household Members: Spouse Are you a primary women's health care nurse practitioner to a significant other at home: No Do you presently have visiting nurse or other home services: No Alcohol intake: current Alcohol intake frequency: does not drink Patient Tobacco Use Status: Never used Tobacco Current occupational status: disabled Physical Exam Vital Signs: Last Vital Signs Pulse 80 11/08/23 12:57 BP 118/68 11/08/23 12:57 BMI result Body Mass Index 31.0 Absence of Cushingoid features. Absence of acromegalic features. Neck exam reveals nl size thyroid about 15 gms. No thyroid nodules palpable. No carotid bruits present. Lungs CTA. Heart S1 S2, Reg R/R. No M/R/ G. Skin exam reveals absence of vitiligo or acanthosis nigricans. Abdominal exam reveals Soft NT/ND with NA BS. No organomegaly present. Neck Other: . Extrem Other: Visual exam of foot performed. No ulcerations or open lesions. No onchomycosis, no callouses.Pulses 2 + distally Sensation intact to monofilament exam. Vibratory sensation sensed is intact with 128 Hz tuning fork Results AMB Hemoglobin A1c AMB Hemoglobin A1c 9.2 % Last Edit by MARANDA Flores on 11/08/23 13:14 Results Reviewed Results Reviewed: Laboratory Last Values Glucose (Clinic) 69 mg/dL (60-115) 11/08/23 13:03 Hgb A1c (Clinic) 9.2 % (4.0-6.0) H 11/08/23 13:09 Assessment & Plan Assessment & Plan (1) Type 2 diabetes mellitus with diabetic chronic kidney disease: Code(s): E11.22 - Type 2 diabetes mellitus with diabetic chronic kidney disease Plan: This is a 53-year-old female with a history of type 2 diabetes being treated with Jardiance,, Actos and basal-bolus insulin with poor glycemic control and known microvascular complications namely CKD and neuropathy The plan is to decrease Tresiba to 60 units . We will switch the Trulicity to Mounjaro . Will refer for follow-up to religious educator. With the help of a principal biostatistician went over relationship of poor glycemic control to development and progression complication. Also told pt to report any further hypoglycemia to adjust insulin further . Went over side effects of mounjaro including but not limited to nausea, vomiting rare risk of pancreatitis Orders: Orders AMB Hemoglobin A1c Today E11.22 - Type 2 diabetes mellitus with diabetic chronic kidney disease, Z13.9 - Encounter for screening, unspecified Medications: New tirzepatide (Mounjaro) 2.5 mg (0.5 mL) subcut QWEEK 2 mL 4RF 4 weeks Discontinued empagliflozin (Jardiance) Discontinued Reason: Doctor's Order 25 mg PO DAILY 30 tabs 4RF pioglitazone FUTURE REFILLS FROM PCP. Discontinued Reason: Doctor's Order 15 mg PO DAILY 30 tabs 0RF E11.42 - Type 2 diabetes mellitus with diabetic polyneuropathy Coding Level of Care Code Est Pt Level 4 (04147) Diagnoses Type 2 diabetes mellitus with diabetic chronic kidney disease E11.22
[2023-11-08 12:57] VITALS: BP 118/68; PULSE 80; BMI 31.0
[2023-11-08 13:08] LABS: Glucose, Whole Blood 69 mg/dL (60-115)
[2023-11-08 13:30] LABS: Glucose, Whole Blood 79 mg/dL (60-115)
== END 2023-11-08 13:46 | disposition home or self-care (01) ==
PROVIDERS: PCP Internal Medicine; Visit Provider Internal Medicine Endocrinology, Diabetes & Metabolism
DX: E11.22 Type 2 diabetes mellitus with diabetic chronic kidney disease (principal); N18.30 Chronic kidney disease, stage 3 unspecified; E11.42 Type 2 diabetes mellitus with diabetic polyneuropathy; Z79.4 Long term (current) use of insulin; Z79.84 Long term (current) use of oral hypoglycemic drugs
CPT/HCPCS: 99214

== ENCOUNTER → 2023-11-08 12:49 | Outpatient (BNVA) | payer MEDICAID, SELFPAY | PROVIDERS: PCP Internal Medicine; Visit Provider Internal Medicine Endocrinology, Diabetes & Metabolism | DX: E11.22 Type 2 diabetes mellitus with diabetic chronic kidney disease (principal) | CPT/HCPCS: 82947; 83036; 99212 ==

== ENCOUNTER 2023-11-15 10:42 | Outpatient (REF) | payer MEDICAID, SELFPAY ==
[2023-11-15 11:59] LABS: INTERNATIONAL NORM RATIO 1.2 (0.9-1.1); Prothrombin Time 14.5 SEC (11.1-13.3)
[2023-11-15 12:08] LABS: Estimated Average Glucose 200 mg/dL; Hemoglobin A1c % 8.6 % (<6.0)
[2023-11-15 12:57] LABS: Alanine Aminotransferase 46 U/L (0-31); Albumin Level 4.1 g/dL (3.5-5.0); Alkaline Phosphatase 124 U/L (39-117); Aspartate Amino Transferase 48 U/L (5-31); Bilirubin Direct 0.2 mg/dL (0.0-0.5); Bilirubin Total 0.5 mg/dL (0.0-1.0); C Reactive Protein 0.58 mg/dL (< or = 0.50); Iron 115 mcg/dL (30-160); Percent Iron Saturation 41 % (15-50); Total Iron Binding Capacity 280 mcg/dL (228-428); Total Protein 7.9 g/dL (6.5-8.0); Unsaturated Iron Binding 165 ug/dL
[2023-11-15 13:15] LABS: Ferritin 332 ng/mL (10-250)
[2023-11-17 11:37] LABS: Alpha Fetoprotein 3.4 ng/mL
[2023-11-18 16:14] LABS: Mitochondrial Antibodies NEGATIVE (NEGATIVE)
[2023-11-19 15:24] LABS: Smooth Muscle Antibody <20 U (<20)
[2023-11-23 17:43] LABS: FIB-ALT 37 U/L (6-29); FIB-Alpha-2-Macroglobulin 363 mg/dL (106-279); FIB-Apolipoprotein A1 124 mg/dL (101-198); FIB-GGT 285 U/L (3-70); FIB-Haptoglobin 99 mg/dL (43-212); FIB-Total Bilirubin 0.5 mg/dL (0.2-1.2); Liver Fibrosis Score 0.75; Liver Fibrosis Stage F4; Nec Inflam Act Grade A1; Nec Inflam Act Score 0.33
== END 2023-11-15 10:43 | disposition home or self-care (01) ==
LOC: HO.LAB 10:42
PROVIDERS: PCP Internal Medicine; Visit Provider Nurse Practitioner Family
DX: K58.9 Irritable bowel syndrome, unspecified (principal); D64.9 Anemia, unspecified; R79.89 Other specified abnormal findings of blood chemistry; R74.01 Elevation of levels of liver transaminase levels; R74.8 Abnormal levels of other serum enzymes; E11.9 Type 2 diabetes mellitus without complications
CPT/HCPCS: 36415; 80076; 81596; 82105; 82728; 83036; 83540; 85610; 86015; 86140; 86381

== ENCOUNTER 2023-11-25 13:26 | Outpatient (REF) | payer MEDICAID, SELFPAY ==
--- NOTE | 2023-11-25 13:29 | EMG_ITS ---
Chief complaint: Right hand numbness Reason for referral: Evaluate for Carpal Tunnel Syndrome Referred by: Cristhian ECHEVERRIA Procedure done: Right upper extremity NCS/EMG Precautions and/or limitations: None Thai speaking seen with science interpreter. The limb temperature was monitored continuously and remained between 32-36 degrees C during the performance of the NCS. Nerve Conduction Studies Anti Sensory Summary Table ?Stim Site NR Onset (ms) Norm Onset (ms) Peak (ms) Norm Peak (ms) O-P Amp (?V) Norm O-P Amp Site1 Site2 Delta-0 (ms) Dist (cm) Regis (m/s) Norm Regis (m/s) Right Median Anti Sensory (2nd Digit) Wrist ? 2.9 3.9 <3.6 13.1 >10 Wrist 2nd Digit 2.9 14.0 48 Right Radial Anti Sensory (Thumb) Forearm ? 1.6 2.2 <3.1 18.2 Forearm Thumb 1.6 0.0 Right Ulnar Anti Sensory (5th Digit) Wrist ? 2.5 3.3 <3.7 13.2 >15.0 Wrist 5th Digit 2.5 14.0 56 Motor Summary Table ?Stim Site NR Onset (ms) Norm Onset (ms) O-P Amp (mV) Norm O-P Amp iAmp (mV) Amp (1st) (%) Site1 Site2 Delta-0 (ms) Dist (cm) Regis (m/s) Norm Regis (m/s) Right Median Motor (Abd Poll Brev) Wrist ? 4.0 <3.9 8.8 >4.5 10.5 100.0 Elbow Wrist 4.9 18.0 37 >45 Elbow ? 8.9 7.9 9.6 89.8 Right Ulnar Motor (Abd Dig Minimi) Wrist ? 2.8 <3.0 7.6 >5 9.4 100.0 B Elbow Wrist 4.3 19.5 45 >45 B Elbow ? 7.1 7.4 9.1 97.4 A Elbow B Elbow 2.1 10.0 48 >45 A Elbow ? 9.2 7.3 8.9 96.1 EMG ?Side Muscle Nerve Root Ins Act Fibs Psw Amp Dur Poly Recrt Int Pat Comment Right 1stDorInt Ulnar C8-T1 Nml Nml Nml Nml Nml 0 Nml Complete Right FlexCarRad Median C6-7 Nml Nml Nml Nml Nml 0 Nml Complete Right Biceps Musculocut C5-6 Nml Nml Nml Nml Nml 0 Nml Complete Right Triceps Radial C6-7-8 Nml Nml Nml Nml Nml 0 Nml Complete Right Deltoid Axillary C5-6 Nml Nml Nml Nml Nml 0 Nml Complete FINDINGS: Right median motor nerve showed prolonged distal latency, normal amplitude and slow conduction velocity. Right median sensory nerve showed prolonged peak latency. All other nerves tested were within normal. Concentric needle EMG was performed in selected muscles of the right upper extremity. Study did not reveal signs of electric abnormalities as shown in the table below. IMPRESSION: 1. This is an abnormal study. 2. There is electrodiagnostic evidence for right moderate-severe median neuropathy at the wrist, consistent with carpal tunnel syndrome. 3. There is no electrodiagnostic evidence for ulnar neuropathy, brachial plexopathy, or cervical radiculopathy. Thank you for your kind referral. Alissa Pineda MD, JAEL Board Certified, [place] [employer] and [employer] (ABPMR) Board Certified, [place] Board of Electrodiagnostic Medicine (ABEM) CODIN [id number] MTDD
== END 2023-11-25 13:27 | disposition home or self-care (01) ==
LOC: HO.NEURO 13:26
PROVIDERS: PCP Internal Medicine; Visit Provider Physician Assistant
DX: R20.0 Anesthesia of skin (principal); R20.2 Paresthesia of skin
CPT/HCPCS: 95886; 95909

== ENCOUNTER → 2023-11-25 13:29 | Outpatient (BNV) | payer MEDICAID, SELFPAY | PROVIDERS: PCP Internal Medicine; Visit Provider Physical Medicine & Rehabilitation | DX: G56.01 Carpal tunnel syndrome, right upper limb (principal); G56.11 Other lesions of median nerve, right upper limb | CPT/HCPCS: 95886; 95909 ==

== ENCOUNTER 2023-12-09 12:32 | Outpatient (REF) | payer MEDICAID, SELFPAY ==
--- NOTE | ~2023-12-09 | XR_ITS ---
EXAMINATION: XR FOOT, LEFT CLINICAL INFORMATION: Left great toe pain; delayed wound healing; history of diabetes mellitus. COMPARISON: None available. TECHNIQUE: AP, lateral, and oblique views of the left foot. FINDINGS: Bony mineralization is normal. There is a pes planus configuration. No fracture, dislocation or left ankle joint effusion is seen. Boehler's angle is normal. There are large posterior and moderate plantar calcaneal spurs. There are degenerative changes of the dorsal midfoot. A small focus of cortical erosion is questioned at the medial aspect of the head of the first proximal phalanx. No focal soft tissue swelling, gas or foreign body is seen. XR/XR foot LT min 3V IMPRESSION: 1. The question is raised of mild cortical erosion at the medial aspect of the head of the first proximal phalanx. There is no associated soft tissue ulceration or mass. This could be further evaluated with MRI or a nuclear bone scan, if clinically indicated. 2. There is a pes planus configuration. 3. There are calcaneal spurs.
== END 2023-12-09 12:33 | disposition home or self-care (01) ==
LOC: HO.HHCX 12:32
PROVIDERS: Visit Provider Nurse Practitioner Primary Care
DX: M79.675 Pain in left toe(s) (principal); M21.42 Flat foot [pes planus] (acquired), left foot; M77.32 Calcaneal spur, left foot; Z86.39 Personal history of other endocrine, nutritional and metabolic disease
CPT/HCPCS: 73630

== ENCOUNTER 2023-12-21 08:43 | Emergency (ER) | payer MEDICAID, SELFPAY ==
--- NOTE | ~2023-12-21 | XR_ITS ---
EXAMINATION: XR TOES, LEFT CLINICAL INFORMATION: Great toe x-ray, ulcer in diabetic. COMPARISON: 12/09/2023 left foot. TECHNIQUE: 3 views of the left great toe. FINDINGS: Previously questioned mild cortical erosion at the medial aspect of the head of the 1st proximal phalanx is redemonstrated. Mild degenerative changes in the 1st metatarsophalangeal joint with mild hypertrophic change. Possible mild cortical thinning along the distal medial aspect of the 1st proximal phalanx. Corticated ossicle and degenerative changes redemonstrated on limited views of the ankle. XR/XR toe LT min 2V IMPRESSION: Previously questioned mild cortical erosion at the medial aspect of the head of the 1st proximal phalanx is redemonstrated. Possible mild cortical thinning along the distal medial aspect of the 1st proximal phalanx. Correlation with clinical exam recommended. This study was presented today, 12/21/2023, for interpretation. Stat results provided at this time as requested by referring provider.
[2023-12-21 08:58] VITALS: BP 122/77; PULSE 68; RESP 16; TEMP 36.7; O2SAT 97; BMI 31.9
[2023-12-21 09:26] LABS: MANUAL DIFF FLAG NO
[2023-12-21 09:37] LABS: Basophils Percent Auto 0.4 % (0-2); Eosinophils Absolute Auto 0.1 X10*3/uL (0.0-0.4); Eosinophils Percent Auto 2.8 % (0-4); Hematocrit 43.8 % (37.0-47.0); Hemoglobin 14.2 g/dl (12.0-16.0); Imm Gran Abs Auto 0.01 X10*3/uL (0.00-0.03); Imm Gran Pct Auto 0.2 % (0.0-0.4); Lymphocytes Absolute Auto 1.7 X10*3/uL (1.2-4.9); Lymphocytes Percent Auto 36.6 % (20-40); Mean Corpuscular HGB Conc 32.4 g/dl (31.0-35.0); Mean Corpuscular Hemoglobin 30.2 pg (27.0-33.0); Mean Corpuscular Volume 93.2 fL (80.0-98.0); Mean Platelet Volume 10.6 fL (9.4-12.3); Monocytes Absolute Auto 0.3 X10*3/uL (0.1-1.2); Monocytes Percent Auto 5.6 % (2-11); Neutrophils Absolute Auto 2.5 x10*3/uL (2.0-8.3); Neutrophils Percent Auto 54.4 % (45-73); Platelet Count 106 X10*3/uL (160-400); Red Cell Distribution Width 14.8 % (11.0-16.0); White Blood Count 4.6 X10*3/uL (4.8-10.8)
[2023-12-21 09:42] LABS: Alanine Aminotransferase 47 U/L (0-31); Alkaline Phosphatase 129 U/L (39-117); Anion Gap 11 (12-20); Aspartate Amino Transferase 53 U/L (5-31); Bilirubin Total 0.5 mg/dL (0.0-1.0); Blood Urea Nitrogen 12 mg/dL (9-16); Calcium 9.2 mg/dL (8.4-10.2); Carbon Dioxide 26 mmol/L (22-29); Chloride 106 mmol/L (96-108); Creatinine Clr Calc Pharmacy 73.4; Estimated Glomerular Filt Rate > 60; Glucose Random 235 mg/dL (60-115); Potassium 4.4 mmol/L (3.3-5.1); Sodium 139 mmol/L (135-145); Total Protein 7.9 g/dL (6.5-8.0)
--- NOTE | 2023-12-21 10:04 | PC.NURSE ---
pt a&o x4, calm, and cooperative. danish speaking only. spouse at bedside. pt comes from home for L great toe pain. pt was seen at [facility] for small scab to L great toe that pt rates 8/10 pain. wound does not look infected. pt has positive pedal pulses. pt with hx of diabetes. sugar this AM 232 per pt continuous glucose monitor. pt sts she was not able to take her insulin this AM. pt is also reporting 8/10 right lower back pain. pt does not appear to be in distress. rr even/unlabored. call dowd within reach. plan of care ongoing.
--- NOTE | 2023-12-21 10:28 | ED_ITS ---
HPI - General Adult General Chief complaint: General Medical Stated complaint: Infected toe L foot-diabetic/lower back pain Time Seen by Provider: 12/21/23 09:47 Source: patient Mode of arrival: ambulatory Limitations: language barrier History of Present Illness HPI narrative: History obtained with certified court interpreter, States she his having right sided lumbar pain which she has had in the past, and is concerned that she has an ulcer on her left great toe that is not healing. Onset (ago): week(s) Related Data Home Medications ?Medication ?Instructions ?Recorded ?Confirmed blood-glucose meter (FreeStyle #1 ea 08/23/20 01/26/22 Lite Meter kit) escitalopram oxalate 20 mg tablet 20 mg PO DAILY 08/23/20 08/14/22 gabapentin 300 mg capsule 300 mg PO DAILY 08/23/20 08/14/22 lancets 28 gauge (FreeStyle #100 ea 08/23/20 07/01/21 Lancets) albuterol sulfate 90 mcg/actuation 2 puff inhalation Q4-6H PRN 07/30/22 08/14/22 aerosol inhaler (Ventolin HFA) Wheezing atorvastatin 20 mg tablet 20 mg PO DAILY 07/30/22 08/14/22 clonazepam 0.5 mg tablet 0.5 mg PO BID PRN Anxiety 07/30/22 08/14/22 levothyroxine 25 mcg tablet 25 mcg PO DAILY 07/30/22 08/14/22 lisinopril 10 mg tablet 10 mg PO DAILY 07/30/22 08/14/22 trazodone 150 mg tablet 150 mg PO BEDTIME depressive 07/30/22 08/14/22 disorder hydroxyzine HCl 25 mg tablet 25 mg PO BID PRN 09/29/22 Previous Rx's ?Medication ?Instructions ?Recorded insulin degludec 200 unit/mL (3 74 unit (0.37 mL) subcut DAILY 30 01/26/22 mL) subcutaneous pen (Tresiba days #18 mL FlexTouch U-200 insulin) blood sugar diagnostic (FreeStyle #150 ea 06/19/22 Lite Strips) insulin lispro 100 unit/mL 24 unit (0.24 mL) subcut TID 30 08/11/22 subcutaneous pen (Humalog KwikPen days #30 mL (U-100) Insulin) simethicone 125 mg capsule (Gas 125 mg PO TID-QID PRN abdominal 04/14/23 Relief (simethicone)) distention #120 caps docusate sodium 100 mg capsule 200 mg (2 x 100 mg) PO BEDTIME #60 06/16/23 ea flash glucose scanning reader #1 ea 07/12/23 (FreeStyle Oren 2 Blythe) omeprazole 20 mg capsule,delayed 20 mg PO DAILY #30 caps 09/27/23 release bisacodyl 5 mg tablet,delayed 10 mg (2 x 5 mg) PO BEDTIME #180 11/03/23 release (Dulcolax (bisacodyl)) tabs flash glucose sensor (FreeStyle #2 kits 11/09/23 Oren 2 Sensor kit) semaglutide 0.25 mg or 0.5 mg (2 0.25 mg (0.368 mL) subcut QWEEK #3 11/10/23 mg/3 mL) subcutaneous pen injector mL (Ozempic) Allergies Allergy/AdvReac Type Severity Reaction Status Date / Time seafood Allergy Severe throat Verified 12/21/23 09:09 closes codeine [Tylenol-Codeine] Allergy Intermediate rash Verified 12/21/23 09:09 Review of Systems 2 Review of Systems: Yes all other systems are reviewed and are negative Neurologic: Denies Sensory deficit (Neuro) PMFSH Past Medical History Medical History Liver cirrhosis Hyperlipidemia Hepatitis C Elevated liver enzymes Hypothyroidism Depression Fibromyalgia Asthma Type 2 diabetes mellitus with diabetic polyneuropathy Type 2 diabetes mellitus with hyperglycemia, with long-term current use of insulin 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 Chronic kidney disease, stage 3 Surgical History Hx of colonoscopy Hx of hand surgery Hx of biopsy H/O oral surgery Family History Family History Mother Diabetes Asthma Kidney stones HTN (hypertension) Brother Diabetes Father Bloodstream infection Social History Social History Household Members: Spouse Are you a primary nurse behavioral health care to a significant other at home: No Do you presently have visiting nurse or other home services: No Alcohol intake: current Alcohol intake frequency: does not drink Patient Tobacco Use Status: Never used Tobacco Smoked in Last 30 Days: No Use of substances other than those prescribed or required for medical reasons: No Advance Directives: No Advance Directives Information Provided: No Current occupational status: disabled Physical Exam ED Vital Signs: Vital Signs - 24 hr 12/21/23 08:58 Temperature 98.1 F Pulse Rate 68 Respiratory Rate 16 Blood Pressure 122/77 Pulse Oximetry 97 Oxygen Delivery Method Room Air BMI result Body Mass Index 31.9 Const Other: looking older than stated age Nutritional Appearance: overweight Orientation/consciousness: oriented to person and patient oriented x3 Limitations: no limitations HENMT Head: Yes normal to inspection Ears: external ears normal General nose exam: Normal external nose present Mouth: Normal oral and palatal mucosa present and oropharynx normal Throat: Yes posterior oropharynx normal Eyes General: appearance normal, both eyes and all related structures Neck Neck: Yes normal visual inspection Chest Chest palpation & inspection: normal inspection of the chest Resp Auscultation: clear to auscultation bilaterally Cardio Jugular venous distension: no JVD Rate: regular rate Rhythm: regular rhythm Heart sounds: S1 normal heart sound present and S2 normal heart sound present GI Inspection: Yes normal to inspection Palpation (GI): Soft to palpation, nontender and No hepatosplenomegaly present Auscultation: normal bowel sounds Back/Spine/Pelvis Other: Mild right SI join tenderness Skin Other: small scab to left great toe, no erythema, no pus Neuro General: oriented to person and patient oriented x3 Cranial nerves: Yes CN's II-XII intact bilaterally Motor exam (neuro): 5/5 motor strength present throughout Sensory Exam: No Sensory deficit (Neuro) Extrem Other: good left foot DP pulses Psych Appearance: grossly normal Course Reevaluation(s) Reevaluation #1: no fever, no redness, no pus, xray negative for lytic lesion. Patient with mild SI joint tenderness will dc home Time: 10:46 Medications Administered Discontinued Medications Generic Name Dose Route Start Last Admin Trade Name Freq PRN Reason Stop Dose Admin Insulin Human Lispro 5 unit 12/21/23 10:05 12/21/23 10:32 Insulin Lispro 100 Unit/Ml 3 Ml Vial SUBCUT 12/21/23 10:06 5 unit ONCE ONE Administration Medical Decision Making Differential Diagnosis Differential Diagnoses: The differential diagnosis associated with the presentation includes (lumbar strain, SI joint tenderness, sciatica, cellulitis, osteomyelitis were all considered) Admission/Observation Consideration of admission/observation: Escalation of care including admission/observation considered (upon arrival patient considered for admission) Lab Data 12/21/23 09:22 12/21/23 09:22 Labs: Lab Results 12/21/23 Range/Units 09:22 WBC 4.6 L (4.8-10.8) X10*3/uL RBC 4.70 (4.20-5.50) X10*6/uL Hgb 14.2 (12.0-16.0) g/dl Hct 43.8 (37.0-47.0) % MCV 93.2 (80.0-98.0) fL MCH 30.2 (27.0-33.0) pg MCHC 32.4 (31.0-35.0) g/dl RDW 14.8 (11.0-16.0) % Plt Count 106 L D (160-400) X10*3/uL MPV 10.6 (9.4-12.3) fL Immature Gran % (Auto) 0.2 (0.0-0.4) % Neut % (Auto) 54.4 (45-73) % Lymph % (Auto) 36.6 (20-40) % Isabela % (Auto) 5.6 (2-11) % Eos % (Auto) 2.8 (0-4) % Baso % (Auto) 0.4 (0-2) % Lymph # (Auto) 1.7 (1.2-4.9) X10*3/uL Isabela # (Auto) 0.3 (0.1-1.2) X10*3/uL Eos # (Auto) 0.1 (0.0-0.4) X10*3/uL Baso # (Auto) 0.0 (0.0-0.2) X10*3/uL Abs Immat Gran (auto) 0.01 (0.00-0.03) X10*3/uL Absolute Neuts (auto) 2.5 (2.0-8.3) x10*3/uL Absolute Nucleated RBC 0.000 (0.0-0.012) X10*3/uL Nucleated RBC % (auto) 0.0 (0.0-0.2) /100WBC Sodium 139 (135-145) mmol/L Potassium 4.4 (3.3-5.1) mmol/L Chloride 106 (96-108) mmol/L Carbon Dioxide 26 (22-29) mmol/L Anion Gap 11 L (12-20) BUN 12 (9-16) mg/dL Creatinine 0.93 (0.5-1.4) mg/dL Estim Creat Clear Calc 73.4 Estimated GFR > 60 Random Glucose 235 H (60-115) mg/dL Calcium 9.2 (8.4-10.2) mg/dL Total Bilirubin 0.5 (0.0-1.0) mg/dL AST 53 H (5-31) U/L ALT 47 H (0-31) U/L Alkaline Phosphatase 129 H (39-117) U/L Total Protein 7.9 (6.5-8.0) g/dL Albumin 4.0 (3.5-5.0) g/dL Independent Interpretation I performed an independent interpretation of an: Plain X-Ray (great toe: no blake destruction) Tests considered The following testing was considered but not selected: MRI of foot considered but no fever, drainage, erythema or swelling with a normal xray Prescription Management I considered prescription management with: Antibiotic (no evidence of bacterial infection) Chronic Conditions Patient?s care impacted by: Diabetes and Hypertension Discharge Plan Discharge Clinical Impression: Low back pain Patient Disposition: Home, Self-Care Instructions: Acute Low Back Pain (ED) Prescriptions: No Action (DME) FreeStyle Lite Strips Strip See Rx Instructions .ROUTE .MEDSUPPLY Qty: 150 4RF Rx Instructions: As directed insulin lispro [Humalog KwikPen Insulin] 100 unit/mL insulin pen 24 unit subcut TID 30 Days Qty: 30 0RF docusate sodium 100 mg capsule 200 mg PO BEDTIME Qty: 60 11RF (DME) FreeStyle Oren 2 Blythe Misc See Rx Instructions .Route Qty: 1 0RF Rx Instructions: As directed omeprazole 20 mg capsule,delayed release(DR/EC) 20 mg PO DAILY Qty: 30 3RF (DME) FreeStyle Oren 2 Sensor Kit See Rx Instructions .ROUTE .COMPLEX Qty: 2 4RF Dose Instruction: USE DIRECTED EVERY 14 DAYS Rx Instructions: USE DIRECTED EVERY 14 DAYS Ozempic 0.25 mg or 0.5 mg (2 mg/3 mL) pen injector 0.25 mg subcut QWEEK Qty: 3 4RF (DME) blood-glucose meter [FreeStyle Lite Meter] Kit See Rx Instructions .ROUTE .MEDSUPPLY Qty: 1 Rx Instructions: As directed (DME) lancets [FreeStyle Lancets] 28 gauge misc See Rx Instructions .ROUTE .MEDSUPPLY Qty: 100 Rx Instructions: As directed escitalopram oxalate 20 mg tablet 20 mg PO DAILY gabapentin 300 mg capsule 300 mg PO DAILY Tresiba FlexTouch U-200 200 unit/mL (3 mL) insulin pen 74 unit subcut DAILY 30 Days Qty: 18 6RF levothyroxine 25 mcg tablet 25 mcg PO DAILY albuterol sulfate [Ventolin HFA] 90 mcg/actuation HFA aerosol inhaler 2 puff inhalation Q4-6H PRN (Reason: Wheezing) trazodone 150 mg tablet 150 mg PO BEDTIME clonazepam 0.5 mg tablet 0.5 mg PO BID PRN (Reason: Anxiety) atorvastatin 20 mg tablet 20 mg PO DAILY lisinopril 10 mg tablet 10 mg PO DAILY hydroxyzine HCl 25 mg tablet 25 mg PO BID PRN simethicone [Gas Relief (simethicone)] 125 mg capsule 125 mg PO TID-QID PRN (Reason: abdominal distention) Qty: 120 2RF bisacodyl [Dulcolax (bisacodyl)] 5 mg tablet,delayed release (DR/EC) 10 mg PO BEDTIME Qty: 180 4RF Referrals: Renetta Gómez MD [Primary Care Provider] - 5 days Print Language: Lao
[2023-12-21] MEDS: Insulin Lispro 100 UNIT/ML 3 ML VIAL SUBCUT (10:32)
[2023-12-21 12:12] VITALS: BP 108/86; PULSE 69; RESP 18; TEMP 36.8; O2SAT 96
[2023-12-21 12:18] VITALS: BP 108/86; PULSE 69; RESP 18; TEMP 36.8; O2SAT 96
== END 2023-12-21 12:19 | disposition home or self-care (01) ==
PROVIDERS: Emergency Provider Emergency Medicine; PCP Internal Medicine
DX: M54.50 Low back pain, unspecified (principal); E11.621 Type 2 diabetes mellitus with foot ulcer; L97.529 Non-pressure chronic ulcer of other part of left foot with unspecified severity; E11.22 Type 2 diabetes mellitus with diabetic chronic kidney disease; N18.30 Chronic kidney disease, stage 3 unspecified; Z79.4 Long term (current) use of insulin
CPT/HCPCS: 36415; 73660; 80053; 85025; 99284

== ENCOUNTER 2023-12-22 12:44 | Outpatient (AMB) | payer MEDICAID, SELFPAY ==
[2023-12-22 12:47] VITALS: BP 130/72; PULSE 64; BMI 31.4
--- NOTE | 2023-12-22 12:47 | A.OFFVIS_ITS ---
Vital Signs 12/22/23 12:47 Height 5 ft 4 in Weight 182 lb 15.739 oz BMI 31.4 BP 130/72 Blood Pressure Location Lt brachial Position Sitting Pulse 64 Intake Visit Reasons: 2 month follow up Intake Note: Renata presents in the office as a 2 month follow up. CC: Patient does not seem much aware of her medications. She states that she is not having any concerns at this time. Hardware Sales Assistant Required: Yes Hardware Sales Assistant Name: Sukhi [id number] Allergies seafood Allergy (Severe, Verified 12/28/23 12:17) throat closes codeine [Tylenol-Codeine] Allergy (Intermediate, Verified 12/28/23 12:17) rash HPI HPI 2 month follow up: Details: LAST VISIT Liver cirrhosis Elevated liver enzymes RUQ abdominal pain GERD (gastroesophageal reflux disease) Plan Continue omeprazole daily. Patient will have ultrasound repeated with elastography for staging. Continue low-fat diet blood work to be done before next appointment as well to rule out autoimmune disorders. Patient will start taking Dulcolax tablets daily to help her move her bowels. I will see her in 2 months, sooner on as needed basis. Patient is agreeable to this plan and verbalizes understanding of instructions. She was given the opportunity to ask questions and all questions answered. ? Thank you for allowing me to participate in her care Orders Orders Alpha Fetoprotein Today R79.89 C Reactive Protein Today K58.9 IRON PROFILE Today D64.9 Ferritin Today R74.8 Mitochondrial Antibody Today R79.89 Liver Fibrosis Pnl Today R74.8 Liver Panel Today R74.01 US abdomen nunez w elastography Today R74.01 Hemoglobin A1c Today E11.9 Prothrombin Time INR Today R74.8 Smooth Muscle Antibody Today R79.89 Medications New bisacodyl (Dulcolax (bisacodyl)) 10 mg (2 x 5 mg) PO BEDTIME 180 tabs 4RF TODAY'S VISIT: Patient is here today for follow-up and to discuss lab results. Patient reports that she has been feeling well. Denies any GI concerning symptoms. Patient reports that she is taking Dulcolax and she is able to move her bowels. Patient takes Nexium in the morning. Patient denies dyspepsia, dysphagia or odynophagia All her lab work results discussed with patient. Ultrasound not performed yet. Patient reports that she did change her diet and is avoiding anything that is high in fat. Slight improvement in A1c. Patient is follow-up with endocrinology and Ozempic was ordered awaiting approval. 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 Chronic kidney disease, stage 3 Surgical History Hx of colonoscopy Hx of hand surgery Hx of biopsy H/O oral surgery Family History Mother Diabetes Asthma Kidney stones HTN (hypertension) Brother Diabetes Father Bloodstream infection Social History Household Members: Spouse Are you a primary transitional care manager to a significant other at home: No Do you presently have visiting nurse or other home services: No Alcohol intake: current Alcohol intake frequency: does not drink Patient Tobacco Use Status: Never used Tobacco Current occupational status: disabled Review of Systems Const Denies weight gain and Denies weight loss ENT Reports no additional complaints, Denies dysphagia and Denies odynophagia Card Reports no additional complaints Resp Reports no additional complaints GI Denies abdominal pain, Denies belching, Denies melena, Denies bloating, Denies change in bowel habits, Denies dysphagia, Denies excessive flatus, Denies dyspepsia, Denies heartburn, Denies diarrhea, Denies loose stools, Denies nausea, Denies odynophagia and Denies vomiting Reports no additional complaints Musc Reports no additional complaints Neuro Reports no additional complaints Psych Reports no additional complaints Endo Reports no additional complaints Physical Exam Vital Signs: Last Vital Signs Pulse 64 12/22/23 12:47 BP 130/72 12/22/23 12:47 BMI result Body Mass Index 31.4 Const General: healthy appearing and no acute distress Nutritional Appearance: obese Orientation/consciousness: patient oriented x3 Resp Effort & Inspection: normal respiratory effort, able to speak in complete sentences, no tracheal deviation and symmetric chest movement Auscultation: clear to auscultation bilaterally Cardio Rate: regular rate GI Inspection: Yes normal to inspection, No distended and Yes obesity Palpation (GI): Soft to palpation, not firm, nontender and No hepatosplenomegaly present Auscultation: normal bowel sounds General: Yes no CVA tenderness Back/Spine/Pelvis Back: no CVA tenderness Skin General skin exam: elasticity normal, turgor normal and dry skin Neuro General: patient oriented x3 Psych Appearance: grossly normal Mental Status: mental status grossly normal Results Reviewed Results Reviewed: Laboratory Tests 11/15/23 10:54 PT 14.5 H INR 1.2 H Hemoglobin A1c % 8.6 H Iron 115 TIBC 280 % Saturation 41 Unsat Iron Binding 165 Ferritin 332 H Total Bilirubin 0.5 Direct Bilirubin 0.2 AST 48 H ALT 46 H Alkaline Phosphatase 124 H Liver GGT 285 H Liver Total Bilirubin 0.5 Liver Apolipoprotein A1 124 Liver Fibrosis ALT 37 H Liver [id number] 363 H Liver Haptoglobin 99 Liver Fibrosis Score 0.75 Liver Fibrosis Stage F4 C-Reactive Protein 0.58 H Total Protein 7.9 Albumin 4.1 Alpha Fetoprotein 3.4 Anti-Mitochondrial Ab NEGATIVE Anti-Smooth Muscle Ab <20 MELD SCORE 1.9% Assessment & Plan Assessment & Plan (1) Liver cirrhosis: Code(s): K74.60 - Unspecified cirrhosis of liver Category: Medical Qualifiers: Hepatic cirrhosis type: other cirrhosis Qualified Code(s): K74.69 - Other cirrhosis of liver (2) Elevated liver enzymes: Code(s): R74.8 - Abnormal levels of other serum enzymes Category: Medical (3) RUQ abdominal pain: Code(s): R10.11 - Right upper quadrant pain (4) GERD (gastroesophageal reflux disease): Code(s): K21.9 - Gastro-esophageal reflux disease without esophagitis Qualifiers: Esophagitis presence: esophagitis presence not specified Qualified Code(s): K21.9 - Gastro-esophageal reflux disease without esophagitis Plan Patient reports that she is feeling better. Denies any abdominal pain or discomfort. Patient was encouraged to get her ultrasound. Ultrasound booked for March 13. Continue avoiding dietary triggers. Better control of her blood sugars, hopefully patient will be able to get Ozempic. I will see her in 3 months, sooner on as needed basis. Patient is agreeable to this plan and verbalizes understanding of instructions. She was given the opportunity to ask questions and all questions answered Thank you for allowing me to participate in her care
== END 2023-12-22 13:17 | disposition home or self-care (01) ==
PROVIDERS: PCP Internal Medicine; Visit Provider Nurse Practitioner Family
DX: K74.69 Other cirrhosis of liver (principal); R74.8 Abnormal levels of other serum enzymes; R10.11 Right upper quadrant pain; K21.9 Gastro-esophageal reflux disease without esophagitis
CPT/HCPCS: 99214

== ENCOUNTER → 2023-12-22 12:44 | Outpatient (BNVA) | payer MEDICAID, SELFPAY | PROVIDERS: PCP Internal Medicine; Visit Provider Nurse Practitioner Family | DX: K74.60 Unspecified cirrhosis of liver (principal); K21.9 Gastro-esophageal reflux disease without esophagitis; R74.8 Abnormal levels of other serum enzymes; R10.11 Right upper quadrant pain | CPT/HCPCS: 99212 ==

== ENCOUNTER 2023-12-28 11:45 | Outpatient (AMB) | payer MEDICAID, SELFPAY ==
--- NOTE | 2023-12-28 12:15 | A.OFFVIS_ITS ---
Intake Vital Signs 12/28/23 12:17 Height 5 ft 4 in Weight 182 lb BMI 31.2 Intake Visit Reasons: OV - EMG review of the right wrist Intake Note: Renata 53 yr old female presents today for a follow up visit for bilateral hand CTS and right hand Dupuytren contracture. Last seen with Christel Greer who would like Dr Bennett to further evaluate. Last A1C taken on 11/08/23 9.2. Allergies seafood Allergy (Severe, Verified 12/28/23 12:17) throat closes codeine [Tylenol-Codeine] Allergy (Intermediate, Verified 12/28/23 12:17) rash HPI OV - EMG review of the right wrist HPI Details Renata is a 53 year old right hand dominant Diabetic [place] speaking woman who presents for a NCS review of her right hand numbness. She is seen today wearing a wrist brace She complains of numbness in the ring & small fingers of her right hand. Symptoms constant. She denies any numbness in the thumb, index, and middle fingers today, but she says she feels numbness every night. She says her numbness began ~2 years ago in her small finger. She also complains of bilateral Dupuytrens cords in her hands, into her small fingers, along with a right small finger contracture. She has a hx of a previous surgery for her right ring finger Dupuytrens contracture in [place] in ~2018. She has Diabetes, which she is working on managing. Her most recent HgA1c was 8.6% on 11/15/23. 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 Chronic kidney disease, stage 3 Surgical History Hx of colonoscopy Hx of hand surgery Hx of biopsy H/O oral surgery Family History Mother Diabetes Asthma Kidney stones HTN (hypertension) Brother Diabetes Father Bloodstream infection Social History Household Members: Spouse Are you a primary medical care administrator to a significant other at home: No Do you presently have visiting nurse or other home services: No Alcohol intake: current Alcohol intake frequency: does not drink Patient Tobacco Use Status: Never used Tobacco Current occupational status: disabled Review of Systems Const All systems reviewed & are unremarkable except as noted in HPI and below Physical Exam Vital Signs: BMI result Body Mass Index 31.2 Const General: cooperative, healthy appearing and no acute distress Orientation/consciousness: patient oriented x3 HEENT Head: Yes normocephalic and Yes atraumatic Eyes EOM: EOMs intact bilaterally Resp Effort & Inspection: normal respiratory effort and able to speak in complete sentences Cardio Jugular venous distension: no JVD Skin General skin exam: turgor normal Rashes: no rashes Neuro General: patient oriented x3 Extrem Other: Evaluation of Right Upper Extremity: The patient is alert, oriented, and in no acute distress Neuro: Median, Ulnar, Radial nerves motor and sensory intact and sensation is normal to the tips of all digits No thenar or intrinsic wasting Good APB muscle belly firing and good finger cross Good finger ABduction & ADduction Vascular: Cap refill brisk ROM: She can make a fist and extend all her digits She can place her hands flat on the table No locking or catching Skin: No lacerations or abrasions. General: No Ecchymosis. No Erythema or evidence of infection. She has a Dupuytrens cord extending to the right small finger, with contractures. MCP 15/PIP 15. Some tenderness along the cord. She has a healed surgical scar in the palm in line with the right ring finger, with no contractures . She has a Dupouytrens cord extending to the left small finger, with no visible contractures Nerve Conduction Study: Right side only IMPRESSION: 1. This is an abnormal study. 2. There is electrodiagnostic evidence for right moderate-severe median neuropathy at the wrist, consistent with carpal tunnel syndrome. 3. There is no electrodiagnostic evidence for ulnar neuropathy, brachial plexopathy, or cervical radiculopathy. Alissa Pineda MD, JAEL 11/25/23 Psych Appearance: grossly normal Affect: normal affect Attitude: cooperative Assessment & Plan Assessment & Plan (1) Acute carpal tunnel syndrome of right wrist: Code(s): G56.01 - Carpal tunnel syndrome, right upper limb (2) Cubital tunnel syndrome on right: Code(s): G56.21 - Lesion of ulnar nerve, right upper limb (3) Type 2 diabetes mellitus with diabetic polyneuropathy: Code(s): E11.42 - Type 2 diabetes mellitus with diabetic polyneuropathy Qualifiers: Diabetes mellitus ocean transportation intermediary insulin use: with detention use Qualified Code(s): E11.42 - Type 2 diabetes mellitus with diabetic polyneuropathy; Z79.4 - care home (current) use of insulin (4) Chronic kidney disease, stage 3: Code(s): N18.30 - Chronic kidney disease, stage 3 unspecified (5) Fibromyalgia: Code(s): M79.7 - Fibromyalgia (6) Dupuytren's disease of palm of right hand: Code(s): M72.0 - Palmar fascial fibromatosis [Dupuytren] (7) Dupuytren's disease of palm of left hand: Code(s): M72.0 - Palmar fascial fibromatosis [Dupuytren] (8) Dupuytren's contracture of right hand: Code(s): M72.0 - Palmar fascial fibromatosis [Dupuytren] Plan Assessment & Plan: 1. Right carpal tunnel syndrome, moderate-severe Symptoms intermittent, primarily at night 2. Right Cubital tunnel syndrome, based on history & PE With dense numbness since ~2021 No evidence of cubital tunnel syndrome on her NCS Dense numbness today in clinic I educated her about this condition I discussed operative and non-operative treatment options The patient would like to proceed with surgery She will discontinue her wrist brace at this time, but can continue to wear this at night. The risks and benefits of operative treatment were discussed with the patient and the patient wishes to proceed with surgery. These risks include, but are not limited to risk of damage to blood vessels, nerves, tendons, infection, recurrence, incomplete relief of preoperative symptoms, persistent pain, possible need for further surgery and the risks associated with regional blocks and anesthesia. The plan is to take the patient to the operating room sometime in the next few weeks for the following procedures: 1. Right cubital tunnel release vs transposition, under general 2. Right carpal tunnel release, under general All of the preoperative paperwork including the consent was reviewed today. All the patient's questions were answered. The patient understands that they will be contacted by our solder making laborer soon to schedule this procedure She denies blood thinners, asthma, heart, lung issues She is a Diabetic, her most recent HgA1c was 8.6% on 11/15/23. She says she does not have an appointment with her PCP until August. Bella will work on having her PCP order a HgA1c for sometime in March She has Hepatitis C, Stage 3 CKD, and Fibromyalgia They will need an updated HgA1c that is <8.1% in order to proceed with surgery, and they expressed understanding 3. Right small finger Dupuytrens contracture MCP 15/PIP 15 I recommend we manage her nerve issues first before discussing treatment for this. She can follow up to discuss surgery when she has recovered from her surgery. 4. Right ring finger Dupuytrens cord, S/P partial fasciectomy DOS: ~2019 in [place] Visible cord, no contractures 5. Left small finger Dupuytrens cord No contractures Scribed for Breanne Bennett MD by Mike Monique, medical technician assistant, on 12/28/23 at 1:10 PM, EST. Coding Level of Care Code Est Pt Level 4 (61006) Diagnoses Acute carpal tunnel syndrome of right wrist G56.01 Cubital tunnel syndrome on right G56.21 Type 2 diabetes mellitus with diabetic polyneuropathy, with long-term current use of insulin E11.42; Z79.4 Diabetes mellitus detention insulin use: with detention use Chronic kidney disease, stage 3 N18.30 Fibromyalgia M79.7 Dupuytren's disease of palm of right hand M72.0 Dupuytren's disease of palm of left hand M72.0 Dupuytren's contracture of right hand M72.0
[2023-12-28 12:17] VITALS: BMI 31.2
== END 2023-12-28 13:21 | disposition home or self-care (01) ==
PROVIDERS: PCP Internal Medicine; Visit Provider Orthopaedic Surgery
DX: G56.01 Carpal tunnel syndrome, right upper limb (principal); G56.21 Lesion of ulnar nerve, right upper limb; E11.42 Type 2 diabetes mellitus with diabetic polyneuropathy; Z79.4 Long term (current) use of insulin; N18.30 Chronic kidney disease, stage 3 unspecified; M79.7 Fibromyalgia; M72.0 Palmar fascial fibromatosis [Dupuytren]
CPT/HCPCS: 99214

== ENCOUNTER → 2023-12-28 11:45 | Outpatient (BNVA) | payer MEDICAID, SELFPAY | PROVIDERS: PCP Internal Medicine; Visit Provider Orthopaedic Surgery | DX: G56.01 Carpal tunnel syndrome, right upper limb (principal); G56.21 Lesion of ulnar nerve, right upper limb; M72.0 Palmar fascial fibromatosis [Dupuytren]; E11.42 Type 2 diabetes mellitus with diabetic polyneuropathy; E11.22 Type 2 diabetes mellitus with diabetic chronic kidney disease; N18.30 Chronic kidney disease, stage 3 unspecified; M79.7 Fibromyalgia | CPT/HCPCS: 99212 ==

== ENCOUNTER 2024-03-08 12:33 | Outpatient (AMB) | payer MEDICAID, SELFPAY ==
--- NOTE | 2024-03-08 12:34 | A.OFFVIS_ITS ---
Vital Signs 03/08/24 12:40 Height 5 ft 4 in Weight 178 lb 9.191 oz BMI 30.6 BP 128/74 Blood Pressure Location Rt brachial Position Sitting Pulse 72 Pulse Source Pulse Oximeter Intake Visit Reasons: f/u [id number] Intake Note: Patient present today to follow up on Type 2 Diabetes Mellitus. Last seen by Dr. Auguste on 11/08/2023. 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 The patient was last seen by Dr. Auguste 11/06 at which time Tresiba was decreased to 60 units and the patient was changed to Ozempic. She found that this did not help with her numbers although her appetite is decreased and she has lost 4 lb. She is not taking jardiance due to side effects and is intolerant to metformin, Hgb A1C in the office today is 8.8%. Past medical history:DM2, Hypothyroidism, CKD 3, Fibromyalgia, cirrhosis Micro and macrovascular complications: + nephropathy, + neuropathy, Diabetes medications: Tresiba 74 units Humalog 28 units TID (14 units for ensure) Ozempic 0.5mg weekly Oren download shows the sensor is being used 82% of the time. Average glucose is 245 with GMI of 9.2%.. 14% in range with 86% hyperglycemia and 0% She reports some numbness and tingling, denies cramping in lower extremities Hypoglycemia: occasionally Hyperglycemia: denies urinary frequency, + nocturia (1x/night) + polydypsia Exercise: She has been walking less Eye exam: appt 09/2023 [facility] Medical History (Updated 12/28/23 @ 13:20 by Mike Monique) Liver cirrhosis Hyperlipidemia Hepatitis C Elevated liver enzymes Hypothyroidism Depression Fibromyalgia Asthma Type 2 diabetes mellitus with diabetic polyneuropathy Type 2 diabetes mellitus with hyperglycemia, with long-term current use of insulin group home current use of insulin Chronic kidney disease, stage 3 Surgical History Hx of colonoscopy Hx of hand surgery Hx of biopsy H/O oral surgery Family History Mother Diabetes Asthma Kidney stones HTN (hypertension) Brother Diabetes Father Bloodstream infection Social History Household Members: Spouse Are you a primary healthcare social worker to a significant other at home: No Do you presently have visiting nurse or other home services: No Alcohol intake: current Alcohol intake frequency: does not drink Patient Tobacco Use Status: Never used Tobacco Current occupational status: disabled Physical Exam Vital Signs: Last Vital Signs Pulse 72 03/08/24 12:40 BP 128/74 03/08/24 12:40 BMI result Body Mass Index 30.6 Results AMB Hemoglobin A1c AMB Hemoglobin A1c 8.8 % Last Edit by MARANDA Alonzo on 03/08/24 13:19 Results Reviewed Results Reviewed: Laboratory Last Values Glucose (Clinic) 163 mg/dL (60-115) H 03/08/24 12:48 reviewed results of 3 day cgms as summarized in HPI. Data scanned. Assessment & Plan Assessment & Plan (1) Type 2 diabetes mellitus with diabetic chronic kidney disease: Code(s): E11.22 - Type 2 diabetes mellitus with diabetic chronic kidney disease Category: Medical Plan: Diabetes is under poor control. Diabetes medications: Tresiba 80 units Humalog 32 units TID (14 units for ensure) Ozempic 1.0 mg weekly She expresses an interest in going on a pump in particular the ilet where she would not have to count carbohydrates. She prefers to see the Nicki Leon CDE for all her pre pump education and nutritional counseling. The patient was counseled to wear closed toe shoes particularly in light of neuropathy, never walk barefooted and to inspect the feet daily. For any signs of infection or open wound patient should notify PCP. The patient was counseled to always carry a source of sugar and was advised on how to treat low glucose, Orders: Orders AMB Hemoglobin A1c Today E11.9 - Type 2 diabetes mellitus without complications Medications: New insulin degludec (Tresiba FlexTouch U-200 insulin) 80 units (0.4 mL) subcut DAILY 30 days 12 mL 6RF E11.22 - Type 2 diabetes mellitus with diabetic chronic kidney disease insulin lispro (Humalog KwikPen (U-100) Insulin) Reduce to 14 units if the meal is a glucerna shake 32 units (0.32 mL) subcut TID 28 days 26.88 mL 3RF E11.22 - Type 2 diabetes mellitus with diabetic chronic kidney disease semaglutide (Ozempic) 1 mg (0.75 mL) subcut QWEEK 28 days 3 mL 11RF E11.22 - Type 2 diabetes mellitus with diabetic chronic kidney disease Discontinued insulin degludec (Tresiba FlexTouch U-200 insulin) Discontinued Reason: No Longer Medically Relevant 74 units (0.37 mL) subcut DAILY 30 days 18 mL 6RF E11.65 - Type 2 diabetes mellitus with hyperglycemia, Z79.4 - harnessmaker (current) use of insulin insulin lispro (Humalog KwikPen (U-100) Insulin) Discontinued Reason: Doctor's Order 24 units (0.24 mL) subcut TID 30 days 30 mL 0RF E11.65 - Type 2 diabetes mellitus with hyperglycemia, Z79.4 - harnessmaker (current) use of insulin semaglutide Discontinued Reason: Doctor's Order 0.5 mg (0.374 mL) subcut QWEEK 1.5 mL 4RF Coding Level of Care Code Est Pt Level 5 (19068) Diagnoses Type 2 diabetes mellitus with diabetic chronic kidney disease E11.22 Time Spent (min) 40 Comment I spent 40 minutes reviewing labs, 3 day glucose sensor, reviewing previous provider note
[2024-03-08 12:40] VITALS: BP 128/74; PULSE 72; BMI 30.6
[2024-03-08 12:53] LABS: Glucose, Whole Blood 163 mg/dL (60-115)
== END 2024-03-08 13:26 | disposition home or self-care (01) ==
PROVIDERS: PCP Internal Medicine; Visit Provider Nurse Practitioner Adult Health
DX: E11.22 Type 2 diabetes mellitus with diabetic chronic kidney disease (principal)
CPT/HCPCS: 99215

== ENCOUNTER → 2024-03-08 12:33 | Outpatient (BNVA) | payer MEDICAID, SELFPAY | PROVIDERS: PCP Internal Medicine; Visit Provider Nurse Practitioner Adult Health | DX: E11.65 Type 2 diabetes mellitus with hyperglycemia (principal); E11.42 Type 2 diabetes mellitus with diabetic polyneuropathy; E11.22 Type 2 diabetes mellitus with diabetic chronic kidney disease; Z79.4 Long term (current) use of insulin | CPT/HCPCS: 82947; 83036; 99212 ==

== ENCOUNTER 2024-03-13 10:24 | Outpatient (REF) | payer MEDICAID, SELFPAY ==
--- NOTE | ~2024-03-13 | US_ITS ---
EXAMINATION: US ABDOMEN LIMITED WITH LIVER ELASTOGRAPHY CLINICAL INFORMATION: Increased liver function tests. COMPARISON: Abdominal ultrasound dated 03/23/2015. TECHNIQUE: Real-time imaging of the abdominal viscera. Noninvasive ultrasound liver fibrosis assessment is performed using Joanna ElastPQ point quantification shear wave elastography (2D-SWE) with a C5-2 MHz transducer. Multiple elastography samples are obtained. FINDINGS: PANCREAS: Normal. The visualized pancreatic head and body are normal in appearance. The remainder of the pancreas is obscured from visualization by the overlying bowel gas. ABDOMINAL AORTA: The visualized proximal aortic segment is normal in caliber. INFERIOR VENA CAVA: Visualized portions are normal. LIVER: The liver demonstrates normal size, contour and generally increased echogenicity. No focal lesion or intrahepatic biliary duct dilatation. The right lobe measures 14.2 cm in length. The left lobe measures 14.1 cm in length. Portal flow is towards the liver (hepatopetal). Shear wave liver elastography median stiffness is 1.36 m/s (reference: normal median stiffness is 1.3 m/s or less). IQR/median stiffness to assess sampling precision is 0.13 (reference: good quality data set is IQR/median stiffness of 0.15 or less). GALLBLADDER: Normal. The gallbladder is physiologically distended without evidence of stones, sludge, polyps, wall thickening or pericholecystic fluid. COMMON BILE DUCT: Normal in caliber measuring 0.2 cm in diameter. RIGHT KIDNEY: Normal. No hydronephrosis. No renal calculi or focal parenchymal lesions. The kidney measures 11.2 cm in maximum dimension. LEFT KIDNEY: Normal. No hydronephrosis. No renal calculi or focal parenchymal lesions. The kidney measures 11.9 cm in maximum dimension. SPLEEN: Normal. The spleen measures 12.1 cm in maximum dimension. FREE FLUID: None. US/US abdomen nunez w elastography IMPRESSION: 1. There is generalized increase in hepatic echotexture, consistent with fatty infiltration or hepatocellular disease. Please correlate clinically. No focal hepatic mass or intrahepatic biliary dilatation is seen. 2. Liver elastography: In the absence of other known clinical signs, measurements rule out compensated advanced chronic liver disease. If there are known clinical signs, further testing may be needed for confirmation. REFERENCE: Society of Radiologists in Ultrasound Liver Stiffness Thresholds (2020): LIVER STIFFNESS THRESHOLDS: *Liver Stiffness equal or less than 1.3 m/s: High probability of being normal. *Liver Stiffness less than 1.7 m/s: In the absence of other known clinical signs, rules out compensated advanced chronic liver disease. *Liver Stiffness 1.7-2.1 m/s: Suggestive of compensated advanced chronic liver disease but need further test for confirmation. *Liver Stiffness over 2.1 m/s: Rules in compensated advanced chronic liver disease. *Liver Stiffness over 2.4 m/s: Suggestive of clinically significant portal hypertension. QUALITY OF DATA SET: *IQR/Median value equal or less than 0.15 implies a quality data set. *IQR/Median value over 0.15 implies a poor quality data set. SIGNIFICANT CHANGE FROM PRIOR EXAM: Significant change if liver stiffness measurement is 10% or greater from prior exam. OTHER CONSIDERATIONS: The stage of liver fibrosis may be overestimated in the setting of acute hepatitis, liver inflammation, elevated liver function tests, hepatic vascular congestion, obstructive cholestasis, non-fasting state, and infiltrative diseases such as amyloidosis and lymphoma. In some patients with NAFLD, the liver stiffness thresholds for compensated advanced chronic liver disease may be lower. In causes other than viral hepatitis and NAFLD, liver stiffness thresholds are not well established.
== END 2024-03-13 10:25 | disposition home or self-care (01) ==
LOC: HO.US 10:24
PROVIDERS: PCP Internal Medicine; Visit Provider Nurse Practitioner Family
DX: R74.01 Elevation of levels of liver transaminase levels (principal)
CPT/HCPCS: 76705; 76981

== ENCOUNTER 2024-03-23 11:45 | Outpatient (AMB) | payer MEDICAID, SELFPAY ==
--- NOTE | 2024-03-23 12:38 | MHC.AMDMED ---
Intake Intake Visit Reasons: T2DM Communications Technologist Required: Yes Communications Technologist Language: [place] Accompanied by: Spouse Allergies seafood Allergy (Severe, Verified 12/28/23 12:17) throat closes codeine [Tylenol-Codeine] Allergy (Intermediate, Verified 12/28/23 12:17) rash HPI Comprehensive Diabetes Asmnt Most Recent Diabetes Results: Hemoglobin A1c 13.7 % 01/31/19 Microalb/Creat Ratio 27.7 ug/mg cr (<30) 07/02/23 Cholesterol 144 mg/dL 04/22/23 HDL Cholesterol 27 mg/dL 04/22/23 Triglycerides 300 mg/dL 04/22/23 Creatinine 0.93 mg/dL (0.5-1.4) 12/21/23 Blood Urea Nitrogen 12 mg/dL (9-16) 12/21/23 Sodium 139 mmol/L (135-145) 12/21/23 Potassium 4.4 mmol/L (3.3-5.1) 12/21/23 Chloride 106 mmol/L (96-108) 12/21/23 Carbon Dioxide 26 mmol/L (22-29) 12/21/23 Calcium 9.2 mg/dL (8.4-10.2) 12/21/23 AST 53 U/L (5-31) H 12/21/23 ALT 47 U/L (0-31) H 12/21/23 Total Protein 7.9 g/dL (6.5-8.0) 12/21/23 Albumin 4.0 g/dL (3.5-5.0) 12/21/23 PFSH Medical History (Updated 12/28/23 @ 13:20 by Mike Monique) Liver cirrhosis Hyperlipidemia Hepatitis C Elevated liver enzymes Hypothyroidism Depression Fibromyalgia Asthma Type 2 diabetes mellitus with diabetic polyneuropathy Type 2 diabetes mellitus with hyperglycemia, with long-term current use of insulin [facility] current use of insulin Chronic kidney disease, stage 3 Surgical History Hx of colonoscopy Hx of hand surgery Hx of biopsy H/O oral surgery Family History Mother Diabetes Asthma Kidney stones HTN (hypertension) Brother Diabetes Father Bloodstream infection Social History Household Members: Spouse Are you a primary gericare aide teacher to a significant other at home: No Do you presently have visiting nurse or other home services: No Alcohol intake: current Alcohol intake frequency: does not drink Patient Tobacco Use Status: Never used Tobacco Current occupational status: disabled Assessment & Plan Assessment & Plan (1) Type 2 diabetes mellitus with hyperglycemia, with long-term current use of insulin: Code(s): E11.65 - Type 2 diabetes mellitus with hyperglycemia; Z79.4 - terminal clerk (current) use of insulin Plan: Pump Assessment: Type of DM: type 2 Dx at age: 49 Previous DKA: no Current Insulin Rx: MDI Patient takes insulin as prescribed: yes Patient? checks BG Oren 2 Patient? reports glycemic control as: Okay Most recent Hgb A1C: 8.8% Frequency of low BG: rarely Low BG treatment: Candy Frequency of high BG: daily Has pt been on a pump in the past? no Reviewed insulin pump basics today with Patient. Explained pros and cons of insulin pumps. Showed pt various pumps, infusion sets, and cgms currently available. Reviewed need to wear pump 24/7 and need to change infusion set every 3 days. Also stressed importance of frequent BG checks, 4x daily minimum or use pump that is integrated with CGM.? TDD:158 units Pt is interested in the iLet, explained to patient she will have to transition to Dexcom G7 since Oren 2 is not compatible with insulin pump Patient given healthy plate handout, and common [place] food handout Instructed patient to begin to identify foods that she is currently eating that contain carbohydrates In preparation to be able to announce meals for the iLet Patient demonstrated motivation for continued insulin pump education and understands the need to complete education prior to starting insulin pump for best outcome. Will follow up for continued education. Portions of this note were created using voice recognition software, please excuse any words or phrases that may have been misinterpreted. Patient Instructions: Patient will follow-up with public health educator in 2 weeks Coding Level of Care Code Est Pt Level 1 (94908) Diagnoses Type 2 diabetes mellitus with hyperglycemia, with long-term current use of insulin E11.65; Z79.4
== END 2024-03-23 12:39 | disposition home or self-care (01) ==
PROVIDERS: PCP Internal Medicine; Visit Provider Registered Nurse Diabetes Educator
DX: E11.65 Type 2 diabetes mellitus with hyperglycemia (principal); Z79.4 Long term (current) use of insulin

== ENCOUNTER → 2024-03-23 11:45 | Outpatient (BNVA) | payer MEDICAID, SELFPAY | PROVIDERS: PCP Internal Medicine; Visit Provider Registered Nurse Diabetes Educator | DX: E11.65 Type 2 diabetes mellitus with hyperglycemia (principal); Z79.4 Long term (current) use of insulin | CPT/HCPCS: 99211 ==

== ENCOUNTER 2024-03-29 12:44 | Outpatient (AMB) | payer MEDICAID, SELFPAY ==
--- NOTE | 2024-03-29 12:47 | MHC.OFFVIS ---
Vital Signs 03/29/24 12:54 Height 5 ft 4 in Weight 174 lb 2.643 oz BMI 29.9 BP 117/67 Blood Pressure Location Lt brachial Position Sitting Pulse 72 Intake Visit Reasons: 3 month follow up Intake Note: Renata presents in the office as 3 month follow up. CC: She states that she is not having any concerns at this time. Joy Loading Machine Operator Required: Yes Joy Loading Machine Operator Name: [place] [id number] Allergies seafood Allergy (Severe, Verified 03/29/24 12:55) throat closes codeine [Tylenol-Codeine] Allergy (Intermediate, Verified 03/29/24 12:55) rash HPI HPI 3 month follow up: Details: LAST VISIT: Liver cirrhosis Elevated liver enzymes RUQ abdominal pain GERD (gastroesophageal reflux disease) Plan Patient reports that she is feeling better. Denies any abdominal pain or discomfort. Patient was encouraged to get her ultrasound. Ultrasound booked for March 13. Continue avoiding dietary triggers. Better control of her blood sugars, hopefully patient will be able to get Ozempic. I will see her in 3 months, sooner on as needed basis. Patient is agreeable to this plan and verbalizes understanding of instructions. She was given the opportunity to ask questions and all questions answered ? TODAY'S VISIT: Laboratory Tests 11/15/23 10:54 Alpha Fetoprotein 3.4 FIB-4: 3.94. MELD score 8 Patient is here today for follow-up. Patient reports that she has been feeling well. States that she is taking Ozempic and has no GI concerning symptoms. Patient overall reports that she has been feeling well. Patient denies nausea or vomiting. Patient is trying to lose weight and feels like the Ozempic is helping. Patient states that she lost about 10 lb since December. Patient is not a candidate to sent for liver transplant. Meld scores above 10 will consider. 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 Chronic kidney disease, stage 3 Surgical History Hx of colonoscopy Hx of hand surgery Hx of biopsy H/O oral surgery Family History Mother Diabetes Asthma Kidney stones HTN (hypertension) Brother Diabetes Father Bloodstream infection Social History Household Members: Spouse Are you a primary managed care analyst to a significant other at home: No Do you presently have visiting nurse or other home services: No Alcohol intake: current Alcohol intake frequency: does not drink Patient Tobacco Use Status: Never used Tobacco Current occupational status: disabled Review of Systems Const Denies weight gain and Denies weight loss ENT Reports no additional complaints, Denies dysphagia and Denies odynophagia Card Reports no additional complaints Resp Reports no additional complaints GI Denies abdominal pain, Denies belching, Denies melena, Denies bloating, Denies change in bowel habits, Denies dysphagia, Denies excessive flatus, Denies dyspepsia, Denies heartburn, Denies diarrhea, Denies loose stools, Denies nausea, Denies odynophagia and Denies vomiting Reports no additional complaints Musc Reports no additional complaints Neuro Reports no additional complaints Psych Reports no additional complaints Endo Reports no additional complaints Physical Exam Vital Signs: Last Vital Signs Pulse 72 03/29/24 12:54 BP 117/67 03/29/24 12:54 BMI result Body Mass Index 29.9 Const General: healthy appearing and no acute distress Nutritional Appearance: obese Orientation/consciousness: patient oriented x3 Resp Effort & Inspection: normal respiratory effort, able to speak in complete sentences, no tracheal deviation and symmetric chest movement Auscultation: clear to auscultation bilaterally Cardio Rate: regular rate GI Inspection: Yes normal to inspection, No distended and Yes obesity Palpation (GI): Soft to palpation, not firm, nontender and No hepatosplenomegaly present Auscultation: normal bowel sounds General: Yes no CVA tenderness Back/Spine/Pelvis Back: no CVA tenderness Skin General skin exam: elasticity normal, turgor normal and dry skin Neuro General: patient oriented x3 Psych Appearance: grossly normal Mental Status: mental status grossly normal Assessment & Plan Assessment & Plan (1) Liver cirrhosis: Code(s): K74.60 - Unspecified cirrhosis of liver Category: Medical Qualifiers: Hepatic cirrhosis type: other cirrhosis Qualified Code(s): K74.69 - Other cirrhosis of liver (2) GERD (gastroesophageal reflux disease): Code(s): K21.9 - Gastro-esophageal reflux disease without esophagitis Qualifiers: Esophagitis presence: esophagitis presence not specified Qualified Code(s): K21.9 - Gastro-esophageal reflux disease without esophagitis Plan Patient will continue taking PPI. Avoid dietary triggers and late night snacking. Continue taking Dulcolax daily. Patient no longer is experiencing right upper quadrant pain. Most likely related to gas trapping pain from being constipated. Avoid dietary triggers. Continue Ozempic. Next visit will check alpha-fetoprotein. Stage IV liver cirrhosis with MELD score 8. Continue low-fat, high-protein diet. Patient will return in 6 months, sooner on as needed basis. Patient is agreeable to this plan and verbalizes understanding of instructions. She was given the opportunity to ask questions and all questions answered. Thank you for allowing me to participate in her care Orders: Orders Liver Panel 03/29/24 R74.01 - Elevation of levels of liver transaminase levels Coding Level of Care Code Est Pt Level 3 (27197) Diagnoses Other cirrhosis of liver K74.69 Hepatic cirrhosis type: other cirrhosis Gastroesophageal reflux disease, unspecified whether esophagitis present K21.9 Esophagitis presence: esophagitis presence not specified Time Spent (min) 30 Comment 30 minutes spent with patient and additional 10 minutes spent reviewing her records
[2024-03-29 12:54] VITALS: BP 117/67; PULSE 72; BMI 29.9
== END 2024-03-29 13:15 | disposition home or self-care (01) ==
PROVIDERS: PCP Internal Medicine; Visit Provider Nurse Practitioner Family
DX: K74.69 Other cirrhosis of liver (principal); K21.9 Gastro-esophageal reflux disease without esophagitis
CPT/HCPCS: 99213

== ENCOUNTER → 2024-03-29 12:44 | Outpatient (BNVA) | payer MEDICAID, SELFPAY | PROVIDERS: PCP Internal Medicine; Visit Provider Nurse Practitioner Family | DX: K74.69 Other cirrhosis of liver (principal); K21.9 Gastro-esophageal reflux disease without esophagitis; Z79.899 Other long term (current) drug therapy | CPT/HCPCS: 99212 ==

== ENCOUNTER 2024-03-31 11:24 | Outpatient (REF) | payer MEDICAID, SELFPAY ==
[2024-03-31 21:20] LABS: Alanine Aminotransferase 39 U/L (0-31); Albumin Level 4.1 g/dL (3.5-5.0); Alkaline Phosphatase 125 U/L (39-117); Aspartate Amino Transferase 50 U/L (5-31); Bilirubin Direct 0.3 mg/dL (0.0-0.5); Bilirubin Total 0.8 mg/dL (0.0-1.0)
== END 2024-03-31 11:25 | disposition home or self-care (01) ==
LOC: HO.LAB 11:24
PROVIDERS: PCP Internal Medicine; Visit Provider Nurse Practitioner Family
DX: R74.01 Elevation of levels of liver transaminase levels (principal)
CPT/HCPCS: 36415; 80076

== ENCOUNTER 2024-04-07 12:08 | Outpatient (AMB) | payer MEDICAID, SELFPAY ==
[2024-04-07 12:34] VITALS: BP 110/62
--- NOTE | 2024-04-07 12:34 | A.OFFVIS_ITS ---
Vital Signs 04/07/24 12:34 Height 5 ft 4 in Weight 174 lb 13.225 oz BMI 30.0 BP 110/62 Blood Pressure Location Lt brachial Position Sitting Intake Visit Reasons: T2DM/CONFIRMED Intake Note: Patient present today for a follow up on Type 2 Diabetes Mellitus. Patient receives DME supplies through: Pharmacy Last Diabetic Eye exam: 01/2024 Last Podiatry Visit: Does not see a Gallery Or Museum Technician Random Glucose: 93 mg/dL Today Most recent HgA1C: 8.8% 03/08/2024 Smoke Tester Required: Yes Smoke Tester Language: Director Of Culture Services: Smoke Tester Present Smoke Tester Name: Frankie [id number] Information Interpreted: non-clinical & clinical Accompanied by: Spouse Allergies seafood Allergy (Severe, Verified 04/07/24 12:38) throat closes codeine [Tylenol-Codeine] Allergy (Intermediate, Verified 04/07/24 12:38) rash HPI Comments Details: Patient is 89 good morning year-old female with DM type 2 diagnosed over 5 years ago, who presents for continued management of diabetes. The patient was last seen by myself one month ago and by Dr. Auguste 11/06.. She is not taking jardiance due to side effects and is intolerant to metformin, Hgb A1C in the office last month was i8.8%. Past medical history:DM2, Hypothyroidism, CKD 3, Fibromyalgia, cirrhosis Micro and macrovascular complications: + nephropathy, + neuropathy, Diabetes medications: Tresiba 80 units Humalog 32 units TID (14 units for ensure) Ozempic 1.0 mg weekly Freestyle janelle sensor 2 average glucose: 134 Glucose Management indicator 6.5 TIme in range: 1 % very high (above 250) 15 % high (181-250) 80 % in range (70-180] 4 % low (69-55) 0 % very low (below 54) 0 Standard Deviation She reports some numbness and tingling, denies cramping in lower extremities Hypoglycemia: occasionally Hyperglycemia: denies urinary frequency, + nocturia (1x/night) + polydypsia Exercise: She has been walking less Eye exam: appt 09/2023 [facility] Medical History Liver cirrhosis Hyperlipidemia Hepatitis C Elevated liver enzymes Hypothyroidism Depression Fibromyalgia Asthma Type 2 diabetes mellitus with diabetic polyneuropathy Type 2 diabetes mellitus with hyperglycemia, with long-term current use of insulin 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 Chronic kidney disease, stage 3 Surgical History Hx of colonoscopy Hx of hand surgery Hx of biopsy H/O oral surgery Family History Mother Diabetes Asthma Kidney stones HTN (hypertension) Brother Diabetes Father Bloodstream infection Social History Household Members: Spouse Are you a primary restorative care technician to a significant other at home: No Do you presently have visiting nurse or other home services: No Alcohol intake: current Alcohol intake frequency: does not drink Patient Tobacco Use Status: Never used Tobacco Current occupational status: disabled Physical Exam Vital Signs: Last Vital Signs BP 110/62 04/07/24 12:34 BMI result Body Mass Index 30.0 Results Reviewed Results Reviewed: Laboratory Last Values Glucose (Clinic) 93 mg/dL (60-115) 04/07/24 12:39 Assessment & Plan Assessment & Plan (1) Type 2 diabetes mellitus with diabetic chronic kidney disease: Code(s): E11.22 - Type 2 diabetes mellitus with diabetic chronic kidney disease Category: Medical Plan: Continue current medications and transition to pump. We will continue Ozempic while on pump. The patient was counseled to always carry a source of sugar and on the rule of 15's: Take 3 glucose tablets and repeat again in 15 minutes if blood sugar is not in normal range. Continue to repeat every 15 minutes until blood sugar is normal. Medications: New semaglutide (Ozempic) 1 mg (0.75 mL) subcut QWEEK 28 days 3 mL 5RF E11.22 - Type 2 diabetes mellitus with diabetic chronic kidney disease Coding Level of Care Code Est Pt Level 4 (06610) Complex EM visit Add On G2211 Diagnoses Type 2 diabetes mellitus with diabetic chronic kidney disease E11.22
--- NOTE | 2024-04-07 12:42 | ...WebTmpl.AM.EDVIS ---
Vital Signs 04/07/24 12:34 Height 5 ft 4 in Weight 174 lb 13.225 oz BMI 30.0 BP 110/62 Blood Pressure Location Lt brachial Position Sitting Intake Visit Reasons: T2DM/CONFIRMED Allergies seafood Allergy (Severe, Verified 04/07/24 12:38) throat closes codeine [Tylenol-Codeine] Allergy (Intermediate, Verified 04/07/24 12:38) rash
[2024-04-07 12:43] LABS: Glucose, Whole Blood 93 mg/dL (60-115)
== END 2024-04-07 12:58 | disposition home or self-care (01) ==
PROVIDERS: PCP Internal Medicine; Visit Provider Nurse Practitioner Adult Health
DX: E11.22 Type 2 diabetes mellitus with diabetic chronic kidney disease (principal)
CPT/HCPCS: 99214

== ENCOUNTER → 2024-04-07 12:08 | Outpatient (BNVA) | payer MEDICAID, SELFPAY | PROVIDERS: PCP Internal Medicine; Visit Provider Nurse Practitioner Adult Health | DX: E11.65 Type 2 diabetes mellitus with hyperglycemia (principal); E11.42 Type 2 diabetes mellitus with diabetic polyneuropathy; E11.22 Type 2 diabetes mellitus with diabetic chronic kidney disease; N18.30 Chronic kidney disease, stage 3 unspecified; Z79.4 Long term (current) use of insulin; Z46.81 Encounter for fitting and adjustment of insulin pump | CPT/HCPCS: 82947; 99212 ==

== ENCOUNTER 2024-04-11 12:25 | Outpatient (AMB) | payer MEDICAID, SELFPAY ==
--- NOTE | 2024-04-11 13:30 | MHC.AMDMED ---
Intake Intake Visit Reasons: DM Induction Coordination Power Engineer Required: Yes Induction Coordination Power Engineer Language: Financial Examiner Name: Byron Santos Accompanied by: Spouse Allergies seafood Allergy (Severe, Verified 04/07/24 12:38) throat closes codeine [Tylenol-Codeine] Allergy (Intermediate, Verified 04/07/24 12:38) rash HPI Comprehensive Diabetes Asmnt Most Recent Diabetes Results: AST 50 U/L (5-31) H 03/31/24 ALT 39 U/L (0-31) H 03/31/24 Total Protein 8.0 g/dL (6.5-8.0) 03/31/24 Albumin 4.1 g/dL (3.5-5.0) 03/31/24 PFSH Medical History Liver cirrhosis Hyperlipidemia Hepatitis C Elevated liver enzymes Hypothyroidism Depression Fibromyalgia Asthma Type 2 diabetes mellitus with diabetic polyneuropathy Type 2 diabetes mellitus with hyperglycemia, with long-term current use of insulin [facility] current use of insulin Chronic kidney disease, stage 3 Surgical History Hx of colonoscopy Hx of hand surgery Hx of biopsy H/O oral surgery Family History Mother Diabetes Asthma Kidney stones HTN (hypertension) Brother Diabetes Father Bloodstream infection Social History Household Members: Spouse Are you a primary primary care physician to a significant other at home: No Do you presently have visiting nurse or other home services: No Alcohol intake: current Alcohol intake frequency: does not drink Patient Tobacco Use Status: Never used Tobacco Current occupational status: disabled Assessment & Plan Assessment & Plan (1) Type 2 diabetes mellitus with diabetic polyneuropathy: Code(s): E11.42 - Type 2 diabetes mellitus with diabetic polyneuropathy Qualifiers: Diabetes mellitus prison insulin use: with terminal operations manager use Qualified Code(s): E11.42 - Type 2 diabetes mellitus with diabetic polyneuropathy; Z79.4 - salvage determiner (current) use of insulin Plan: Patient at visit to set up an insert Dexcom G7 patient will be switching to Dexcom G7 sensors in preparation to transition to iLet insulin pump therapy Instructed patient sensors water proof you can shower, or swim do not submerge sensor in water for over 30 minutes Is sensor falls off cannot put back in you need to replace sensor, customer service number given to patient for sensor replacement Sensor placed on the back of right arm Patient left visit with sensor in warmup Reviewed how to interpret trend arrows Reminded patient that to check finger sticks if symptoms do not match sensor reading. Discussed lag time between finger stick and sensor data.? Instructed patient she should always keep blood glucometer for backup testing if needed Reviewed delay of CGM from fingersticks Reminded pt that if symptoms do not match sensor still needs to check fingersticks. Reviewed iLet ketone Action Plan and risk of DKA criteria for testing for ketones, how to test for ketones, what to do when your urine is positive for ketones Ketone action plan Faroese handout given Patient Instructions: patient will contact Diabetes Education nurse with questions and concerns Patient will contact our Endocrine Clinic when she receives insulin pump Coding Level of Care Code Est Pt Level 1 (08203) Diagnoses Type 2 diabetes mellitus with diabetic polyneuropathy, with long-term current use of insulin E11.42; Z79.4 Diabetes mellitus prison insulin use: with terminal operations manager use
== END 2024-04-11 13:32 | disposition home or self-care (01) ==
PROVIDERS: PCP Internal Medicine; Visit Provider Registered Nurse Diabetes Educator
DX: E11.42 Type 2 diabetes mellitus with diabetic polyneuropathy (principal); Z79.4 Long term (current) use of insulin

== ENCOUNTER → 2024-04-11 12:25 | Outpatient (BNVA) | payer MEDICAID, SELFPAY | PROVIDERS: PCP Internal Medicine; Visit Provider Registered Nurse Diabetes Educator | DX: E11.65 Type 2 diabetes mellitus with hyperglycemia (principal); E11.42 Type 2 diabetes mellitus with diabetic polyneuropathy; Z79.4 Long term (current) use of insulin; Z96.41 Presence of insulin pump (external) (internal) | CPT/HCPCS: 99211 ==

== ENCOUNTER 2024-05-12 09:54 | Outpatient (REF) | payer MEDICAID, SELFPAY ==
--- NOTE | ~2024-05-12 | MM_ITS ---
EXAMINATION: MM SCREENING DIGITAL BREAST TOMOSYNTHESIS, BILATERAL CLINICAL INFORMATION: Screening. Asymptomatic. COMPARISON: Mammography: Comparison is made with available priors TECHNIQUE: Digital breast tomosynthesis is performed in both the craniocaudal and mediolateral oblique views along with computer-aided detection (CAD). Synthesized 2D images are generated from the tomosynthesis. FINDINGS: There are scattered areas of fibroglandular density (ACR BI-RADS breast composition Category b). There are no significant masses, abnormal calcifications, or other abnormalities. MM/MM tomosynthesis screening BI IMPRESSION: No mammographic evidence of malignancy. ASSESSMENT: BI-RADS BI-RADS 1 - Negative RECOMMENDATION: Routine annual mammography screening. 1 year F/U This examination should not preclude the clinical evaluation of a suspicious palpable abnormality. This patient's information was entered into a reminder system with a target due date for their next mammogram. Electronically signed by: Beth Milian DO 06/02/2024 10:37 PM EDT
== END 2024-05-12 09:55 | disposition home or self-care (01) ==
LOC: HO.MAMMO 09:54
PROVIDERS: PCP Internal Medicine; Visit Provider Internal Medicine
DX: Z12.31 Encounter for screening mammogram for malignant neoplasm of breast (principal)
CPT/HCPCS: 77063; 77067

== ENCOUNTER → 2024-05-12 10:30 | Outpatient (BNV) | payer MEDICAID, SELFPAY | PROVIDERS: PCP Internal Medicine; Visit Provider Internal Medicine | DX: Z12.31 Encounter for screening mammogram for malignant neoplasm of breast (principal) | CPT/HCPCS: 77063; 77067 ==

== ENCOUNTER 2024-05-31 12:12 | Outpatient (AMB) | payer MEDICAID, SELFPAY ==
--- NOTE | 2024-05-31 10:44 | MHC.OFFVIS ---
Vital Signs 05/31/24 12:33 Height 5 ft 4 in Weight 174 lb 2.643 oz BMI 29.9 BP 110/82 Blood Pressure Location Lt brachial Position Sitting Intake Visit Reasons: DM/LVM Intake Note: Patient present today for a follow up on Type 2 Diabetes Mellitus. Patient receives DME supplies through: Pharmacy Last Diabetic Eye exam: 01/2024 Last Podiatry Visit: Does not see a Health Science Writer Most recent HgA1C: 7.5% Random Glucose: 77 mg/dL Site Acquisition Manager Required: Yes Site Acquisition Manager Language: Supervising Producer Services: Site Acquisition Manager Present Information Interpreted: non-clinical & clinical Accompanied by: Self / Same As Patient Allergies seafood Allergy (Severe, Verified 05/31/24 12:36) throat closes codeine [Tylenol-Codeine] Allergy (Intermediate, Verified 05/31/24 12:36) rash HPI Comments Details: Patient is a 54 year-old female with DM type 2 diagnosed approximately 2016 who presents for continued management of diabetes. The patient was last seen by myself one month ago and by Dr. Auguste 11/06. Medications previously on: jardiance stopped due to side effects and is intolerant to metformin, Hgb A1C 7.5% today in the office 8.8% on 03/08/24 down from 9.2% 10/2023. micro vascular and macrovascular complications: + nephropathy, + neuropathy, Diabetes medications: Tresiba 80 units Humalog 32 units TID (14 units for ensure) Ozempic 1.0 mg weekly tolerating this well +nephropathy EGFR greater than 60 microalbumin 33 07/05 + neuropathy: She reports some numbness and tingling, denies cramping in lower extremities Hypoglycemia: occasionally Hyperglycemia: denies urinary frequency, + nocturia (1x/night) + polydypsia HLD on statin ldl 57 05/05 Dexcom average glucose: 169 14 day continuous glucose monitor report reviewed Glucose Managment indicator 7.4 % Days with CGM data 99.9 % TIme in ranges: 4 % very high (above 250) 37 % high ?(181-250) 59 % in range ?(70-180] 0 % low (69-55) Less than 1 % ?very low (below 54) [25.3% ] coefficient of variation desired less than 36 Interpretation [ she is running overall 30 points higher than desired with increases after meals, particularly with lunch and supper] Exercise: She has been walking less Eye exam: appt 09/2023 On thyroid replacment: no recent tsh PFSH Medical History Liver cirrhosis Hyperlipidemia Hepatitis C Elevated liver enzymes Hypothyroidism Depression Fibromyalgia Asthma Type 2 diabetes mellitus with diabetic polyneuropathy Type 2 diabetes mellitus with hyperglycemia, with long-term current use of insulin [facility] current use of insulin Chronic kidney disease, stage 3 Surgical History Hx of colonoscopy Hx of hand surgery Hx of biopsy H/O oral surgery Family History Mother Diabetes Asthma Kidney stones HTN (hypertension) Brother Diabetes Father Bloodstream infection Social History Household Members: Spouse Are you a primary family day care provider to a significant other at home: No Do you presently have visiting nurse or other home services: No Alcohol intake: current Alcohol intake frequency: does not drink Patient Tobacco Use Status: Never used Tobacco Current occupational status: disabled Physical Exam Vital Signs: Last Vital Signs BP 110/82 05/31/24 12:33 BMI result Body Mass Index 29.9 Const Other: Absence of Cushingoid features. Absence of acromegalic features. Neck exam reveals nl size thyroid about 15 gms. No thyroid nodules palpable. No carotid bruits present. Lungs CTA. Heart S1 S2, Reg R/R. No M/R G. Skin exam reveals absence of vitiligo or acanthosis nigricans. No edema Visual exam of foot performed. No ulcerations or open lesions. No inter digit maceration or fissuring. No onychomycosis, no callouses. Sensation intact to monofilament exam. Vibratory sensation is normal with 128 Hz tuning fork. Office Procedures Glucose Monitoring Details Details: See HPI 53250 - Glucose monitoring, continuous-physician I&R Procedure code (CPT) selection complete Results AMB Hemoglobin A1c AMB Hemoglobin A1c 7.5 % Last Edit by MARANDA Flores on 05/31/24 12:48 Results Reviewed Results Reviewed: Laboratory Last Values Glucose (Clinic) 77 mg/dL (60-115) 05/31/24 12:38 Hgb A1c (Clinic) 7.5 % (4.0-6.0) H 05/31/24 12:43 Laboratory Tests 07/01/21 07/02/23 11/08/23 12:54 08:32 13:09 Potassium Estimated GFR Hgb A1c (Clinic) 9.2 H Calcium AST ALT Alkaline Phosphatase TSH 1.96 Urine Creatinine 118.79 Urine Microalbumin 33.0 Microalb/Creat Ratio 27.7 12/21/23 03/08/24 03/31/24 09:22 12:54 11:36 Potassium 4.4 Estimated GFR > 60 Hgb A1c (Clinic) 8.8 H Calcium 9.2 AST 50 H ALT 39 H Alkaline Phosphatase 125 H TSH Urine Creatinine Urine Microalbumin Microalb/Creat Ratio Assessment & Plan Assessment & Plan (1) Type 2 diabetes mellitus with diabetic chronic kidney disease: Code(s): E11.22 - Type 2 diabetes mellitus with diabetic chronic kidney disease Category: Medical Plan: Patient is a 54 year-old female with DM type 2 with nephropathy and neuropathy most recent A1c of 8.8% on 03/08/2024. Glucose sensing average 169. Increase Ozempic to 2.0 weekly she was asked to closely watch her sugars she may need a reduction in insulin and was counseled that she could reduce her short-acting by 6 units if need be. She can also call the office and ask to speak with the Sammarinese-speaking server service assistant. She has been approved for an insulin pump which shipped out. Hipolito Shukla was able to confirm the pump is available for picker and sorter load and unload. Once she receives the pump, she will schedule with the CDE and I will see her back several weeks after pump initiation. She has had pre pump education and has a prescription for ketone test strips and nasal glucagon. On thyroid replacment: no recent labs Advised to have fasting blood work with urine test over the next month. 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.4 - intermodal dispatcher (current) use of insulin AMB Glucose Monitoring Today E11.22 - Type 2 diabetes mellitus with diabetic chronic kidney disease Thyroid Stimulating Hormone 1 Week E11.42 - Type 2 diabetes mellitus with diabetic polyneuropathy, Z79.4 - [facility] (current) use of insulin Microalbumin, Random (w Creat) 1 Week E11.42 - Type 2 diabetes mellitus with diabetic polyneuropathy, Z79.4 - [facility] (current) use of insulin Creatinine Urine 1 Week E11.42 - Type 2 diabetes mellitus with diabetic polyneuropathy, Z79.4 - [facility] (current) use of insulin Basic Metabolic Panel 1 Week E11.42 - Type 2 diabetes mellitus with diabetic polyneuropathy, Z79.4 - intermodal dispatcher (current) use of insulin Lipid Panel 1 Week E11.42 - Type 2 diabetes mellitus with diabetic polyneuropathy, Z79.4 - [facility] (current) use of insulin AMB Hemoglobin A1c Today E11.22 - Type 2 diabetes mellitus with diabetic chronic kidney disease, Z13.9 - Encounter for screening, unspecified Medications: New semaglutide (Ozempic) 2 mg (0.75 mL) subcut QWEEK 3 mL 11RF E11. - Type 2 diabetes mellitus with diabetic chronic kidney disease Discontinued semaglutide (Ozempic) Discontinued Reason: Doctor's Order 1 mg (0.75 mL) subcut QWEEK 28 days 3 mL 5RF E11.22 - Type 2 diabetes mellitus with diabetic chronic kidney disease semaglutide (Ozempic) Discontinued Reason: Duplicate 1 mg (0.75 mL) subcut QWEEK 28 days 3 mL 11RF E11.22 - Type 2 diabetes mellitus with diabetic chronic kidney disease Coding Level of Care Code Est Pt Level 4 (63934) Complex EM visit Add On G2211 Diagnoses Type 2 diabetes mellitus with diabetic chronic kidney disease E11. CPT Codes Details - CPT: 72847 - Glucose monitoring, continuous-physician I&R ([id number]) Time Spent (min) 35 Comment Time spent reviewing labs/provider notes, glucose,sensor reports, face to face, chart doc
[2024-05-31 12:33] VITALS: BP 110/82; BMI 29.9
[2024-05-31 12:44] LABS: Glucose, Whole Blood 77 mg/dL (60-115)
== END 2024-05-31 13:11 | disposition home or self-care (01) ==
PROVIDERS: PCP Internal Medicine; Visit Provider Nurse Practitioner Adult Health
DX: Z13.9 Encounter for screening, unspecified (principal); E11.22 Type 2 diabetes mellitus with diabetic chronic kidney disease
CPT/HCPCS: 95251; 99214

== ENCOUNTER → 2024-05-31 12:12 | Outpatient (BNVA) | payer MEDICAID, SELFPAY | PROVIDERS: PCP Internal Medicine; Visit Provider Nurse Practitioner Adult Health | DX: E11.22 Type 2 diabetes mellitus with diabetic chronic kidney disease (principal); E11.42 Type 2 diabetes mellitus with diabetic polyneuropathy; N18.9 Chronic kidney disease, unspecified; Z79.4 Long term (current) use of insulin | CPT/HCPCS: 82947; 83036; 99212 ==

== ENCOUNTER 2024-06-30 13:43 | Outpatient (REF) | payer MEDICAID, SELFPAY ==
--- NOTE | ~2024-06-30 | XR_ITS ---
EXAMINATION: XR SHOULDER, RIGHT CLINICAL INFORMATION: Right shoulder pain. COMPARISON: None available. TECHNIQUE: AP external rotation, Grashey, scapular Y, and axillary views of the right shoulder. FINDINGS: No acute fracture or dislocation. Mild acromioclavicular joint space narrowing with tiny marginal osteophytes. Moderate glenohumeral joint space narrowing with prominent marginal osteophytes. Spurring versus loose body along the inferior aspect of the glenoid measuring up to 1.8 cm. No concerning lytic or blastic osseous lesion. 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 Spurring versus loose body along the inferior aspect of the glenoid measuring up to 1.8 cm. Electronically signed by: Roger Hartmann MD 07/01/2024 09:52 PM EDT
== END 2024-06-30 13:44 | disposition home or self-care (01) ==
LOC: HO.HHCX 13:43
PROVIDERS: Visit Provider General Practice
DX: M25.511 Pain in right shoulder (principal)
CPT/HCPCS: 73030

== ENCOUNTER 2024-07-07 14:20 | Outpatient (AMB) | payer MEDICAID, SELFPAY ==
[2024-07-07 14:30] VITALS: BMI 29.9
--- NOTE | 2024-07-07 14:30 | A.OFFVIS_ITS ---
Vital Signs 07/07/24 14:30 Height 5 ft 4 in Weight 174 lb BMI 29.9 Intake Visit Reasons: OV-Acute CTS of RT wrist-discuss surgery Intake Note: Renata is a 54 year old right hand dominant female who presents to the office today for Acute CTS of RT wrist-discuss surgery. Brazer Helper Induction Required: Yes Brazer Helper Induction Language: Punch Machine Hand Name: Sander [id number] Allergies seafood Allergy (Severe, Verified 07/07/24 14:32) throat closes codeine [Tylenol-Codeine] Allergy (Intermediate, Verified 07/07/24 14:32) rash HPI HPI OV-Acute CTS of RT wrist-discuss surgery: Details: Patient is a 54-year-old female who presents for evaluation of acute carpal tunnel syndrome and numbness in the ulnar nerve distribution of the right hand. Patient was previously evaluated in December this year, where her A1c was noted to be too high for surgery, but she reports that her A1c now has gotten below 8, and therefore would like to discuss surgery. The patient states that she does not have any numbness or tingling in the median nerve distribution of the right hand, but only in the ulnar nerve distribution. Patient reports that this numbness is intermittent, but daily, and worse at night. Patient would like to discuss surgery at this time. No other acute complaints or concerns at this time. [facility] Medical History (Updated 07/13/24 @ 07:53 by Elsa Esparza NP) Liver cirrhosis Hyperlipidemia Hepatitis C Elevated liver enzymes Hypothyroidism Depression Fibromyalgia Asthma Type 2 diabetes mellitus with diabetic polyneuropathy Type 2 diabetes mellitus with hyperglycemia, with long-term current use of insulin salvage determiner current use of insulin Chronic kidney disease, stage 3 Surgical History Hx of colonoscopy Hx of hand surgery Hx of biopsy H/O oral surgery Family History Mother Diabetes Asthma Kidney stones HTN (hypertension) Brother Diabetes Father Bloodstream infection Social History Household Members: Spouse Are you a primary caregiver assisted living to a significant other at home: No Do you presently have visiting nurse or other home services: No Alcohol intake: current Alcohol intake frequency: does not drink Patient Tobacco Use Status: Never used Tobacco Current occupational status: disabled Physical Exam Vital Signs: BMI result Body Mass Index 29.9 Const General: cooperative, healthy appearing and no acute distress Orientation/consciousness: patient oriented x3 HEENT Head: Yes normocephalic and Yes atraumatic Eyes EOM: EOMs intact bilaterally Resp Effort & Inspection: normal respiratory effort and able to speak in complete sentences Cardio Jugular venous distension: no JVD Skin General skin exam: turgor normal Rashes: no rashes Neuro General: patient oriented x3 Extrem Other: Evaluation of Right Upper Extremity: The patient is alert, oriented, and in no acute distress Neuro: Median, Ulnar, Radial nerves motor and sensory intact and sensation is normal to the tips of all digits No thenar or intrinsic wasting Good APB muscle belly firing and good finger cross Good finger ABduction & ADduction Vascular: Cap refill brisk ROM: She can make a fist and extend all her digits She can place her hands flat on the table No locking or catching Skin: No lacerations or abrasions. General: No Ecchymosis. No Erythema or evidence of infection. Nerve Conduction Study: Right side only IMPRESSION: 1. This is an abnormal study. 2. There is electrodiagnostic evidence for right moderate-severe median neuropathy at the wrist, consistent with carpal tunnel syndrome. 3. There is no electrodiagnostic evidence for ulnar neuropathy, brachial plexopathy, or cervical radiculopathy. Alissa Pineda MD, JAEL 11/25/23 Psych Appearance: grossly normal Affect: normal affect Attitude: cooperative Assessment & Plan Assessment & Plan (1) Stiffness of right hand joint: Code(s): M25.641 - Stiffness of right hand, not elsewhere classified Category: Medical Plan 1. Carpal tunnel syndrome, right 2. Numbness and tingling in ulnar nerve distribution of right hand Symptoms intermittent, daily, worse at night Previous EMG did not show any ulnar neuropathy However, due to EMG being more than 6 months ago, I feel it is appropriate to order a new EMG and nerve conduction study to assess the health of the ulnar n erve Patient was amenable to this plan Patient will follow-up after EMG and nerve conduction study for results review and discussion of further treatment options 3. Stiffness of right hand Patient was referred to occupational therapy for range of motion and strengthening of the right hand, to ensure the patient has full function of the right hand prior to any surgical intervention Patient was amenable to this plan Orders: Orders OT Evaluation and Treatment 07/07/24 M25.641 - Stiffness of right hand, not elsewhere classified NE nerve conduction velocity 07/07/24 R20.0 - Anesthesia of skin, R20.2 - Paresthesia of skin NE electromyogram (EMG) 07/07/24 R20.0 - Anesthesia of skin, R20.2 - Paresthesia of skin Coding Level of Care Code Est Pt Level 3 (56732) Diagnoses Stiffness of right hand joint M25.641
== END 2024-07-07 15:19 | disposition home or self-care (01) ==
PROVIDERS: PCP Internal Medicine
DX: M25.641 Stiffness of right hand, not elsewhere classified (principal)
CPT/HCPCS: 99213

== ENCOUNTER → 2024-07-07 14:20 | Outpatient (BNVA) | payer MEDICAID, SELFPAY | PROVIDERS: PCP Internal Medicine | DX: M25.641 Stiffness of right hand, not elsewhere classified (principal); M79.7 Fibromyalgia | CPT/HCPCS: 99212 ==

== ENCOUNTER 2024-07-12 07:49 | Outpatient (AMB) | payer MEDICAID, SELFPAY ==
--- NOTE | 2024-07-12 10:15 | MHC.AMDMED ---
Intake Intake Visit Reasons: Pump training-lvm P D Driver Required: Yes P D Driver Language: Registered Radiation Therapist Name: Narcisa [facility] Information Interpreted: non-clinical & clinical Accompanied by: Significant Other Allergies seafood Allergy (Severe, Verified 07/07/24 14:32) throat closes codeine [Tylenol-Codeine] Allergy (Intermediate, Verified 07/07/24 14:32) rash HPI Comprehensive Diabetes Asmnt Most Recent Diabetes Results: AST 50 U/L (5-31) H 03/31/24 ALT 39 U/L (0-31) H 03/31/24 Total Protein 8.0 g/dL (6.5-8.0) 03/31/24 Albumin 4.1 g/dL (3.5-5.0) 03/31/24 PFSH Medical History Liver cirrhosis Hyperlipidemia Hepatitis C Elevated liver enzymes Hypothyroidism Depression Fibromyalgia Asthma Type 2 diabetes mellitus with diabetic polyneuropathy Type 2 diabetes mellitus with hyperglycemia, with long-term current use of insulin technician terminal and repeater current use of insulin Chronic kidney disease, stage 3 Surgical History Hx of colonoscopy Hx of hand surgery Hx of biopsy H/O oral surgery Family History Mother Diabetes Asthma Kidney stones HTN (hypertension) Brother Diabetes Father Bloodstream infection Social History Household Members: Spouse Are you a primary child care cook to a significant other at home: No Do you presently have visiting nurse or other home services: No Alcohol intake: current Alcohol intake frequency: does not drink Patient Tobacco Use Status: Never used Tobacco Current occupational status: disabled Assessment & Plan Assessment & Plan (1) Type 2 diabetes mellitus with diabetic chronic kidney disease: Code(s): E11.22 - Type 2 diabetes mellitus with diabetic chronic kidney disease Plan: Patient presents for pump training for iLet pump and CGM training today. Patient did not bring insulin to today's pump training visit We attempted to download iLet brandy on patient's cellphone, the cell phone was not compatible with the brandy Created patient's [employer] account on my cellphone User name: Password: [email or web address] In order to sink data patient will have to log in to compatible cellphone here at office Reminded patient that it is important to bring insulin, and a working sensor to next insulin pump training visit The following topics were reviewed today: -Pump therapy basic concepts: Basal/bolus -Device settings: Bluetooth/mobile connection (if applicable), correct date and time, sound volume Patient will make appointment to finish insulin pump training Portions of this note were created using voice recognition software, please excuse any words or phrases that may have been misinterpreted. Coding Level of Care Code Est Pt Level 1 (51579) Diagnoses Type 2 diabetes mellitus with diabetic chronic kidney disease E11.22
== END 2024-07-12 10:17 | disposition home or self-care (01) ==
LOC: HO.ENCR 07:49
PROVIDERS: PCP Internal Medicine; Visit Provider Registered Nurse Diabetes Educator
DX: E11.22 Type 2 diabetes mellitus with diabetic chronic kidney disease (principal)

== ENCOUNTER 2024-07-12 07:49 | Outpatient (REF) | payer MEDICAID, SELFPAY ==
[2024-07-12 12:18] LABS: Creatinine Urine 269.94 mg/dL; Microalbum/Creatinine Ratio Ur 12.2 ug/mg cr (<30)
[2024-07-12 12:20] LABS: Anion Gap 13 (12-20); Blood Urea Nitrogen 11 mg/dL (9-16); Calcium 9.1 mg/dL (8.4-10.2); Carbon Dioxide 26 mmol/L (22-29); Chloride 107 mmol/L (96-108); Cholesterol 179 mg/dL (<200); Estimated Glomerular Filt Rate > 60; Glucose Random 174 mg/dL (60-115); HDL Cholesterol 36 mg/dL (>40); LDL Cholesterol Calculated 109 mg/dL (<100); Potassium 4.7 mmol/L (3.3-5.1); Sodium 141 mmol/L (135-145); Triglycerides 170 mg/dL (<150)
[2024-07-12 12:57] LABS: Free T4 (Free Thyroxine) 0.86 ng/dL (0.71-1.85); Thyroid Stimulating Hormone 4.25 uIU/mL (0.32-4.0)
== END 2024-07-12 07:50 | disposition home or self-care (01) ==
LOC: HO.LAB 07:49
PROVIDERS: Absent Provider Nurse Practitioner Adult Health; PCP Internal Medicine; Visit Provider Registered Nurse Diabetes Educator
DX: E11.42 Type 2 diabetes mellitus with diabetic polyneuropathy (principal); Z79.4 Long term (current) use of insulin; Z96.41 Presence of insulin pump (external) (internal)
CPT/HCPCS: 36415; 80048; 80061; 82043; 82570; 84439; 84443; 99211

== ENCOUNTER 2024-07-17 08:44 | Outpatient (AMB) | payer MEDICAID, SELFPAY ==
--- NOTE | 2024-07-17 10:45 | MHC.AMDMED ---
Intake Intake Visit Reasons: Finish pump training-conf Director Plans Required: Yes Director Plans Language: Hot Plate Plywood Press Laborer Name: Rik Information Interpreted: non-clinical & clinical Accompanied by: Self / Same As Patient Allergies seafood Allergy (Severe, Verified 07/07/24 14:32) throat closes codeine [Tylenol-Codeine] Allergy (Intermediate, Verified 07/07/24 14:32) rash HPI Comprehensive Diabetes Asmnt Most Recent Diabetes Results: Microalb/Creat Ratio 12.2 ug/mg cr (<30) 07/12/24 Cholesterol 179 mg/dL (<200) 07/12/24 HDL Cholesterol 36 mg/dL (>40) L 07/12/24 Triglycerides 170 mg/dL (<150) H 07/12/24 Creatinine 0.88 mg/dL (0.5-1.4) 07/12/24 Blood Urea Nitrogen 11 mg/dL (9-16) 07/12/24 Sodium 141 mmol/L (135-145) 07/12/24 Potassium 4.7 mmol/L (3.3-5.1) 07/12/24 Chloride 107 mmol/L (96-108) 07/12/24 Carbon Dioxide 26 mmol/L (22-29) 07/12/24 Calcium 9.1 mg/dL (8.4-10.2) 07/12/24 [facility] Medical History (Updated 07/13/24 @ 07:53 by Elsa Esparza NP) Liver cirrhosis Hyperlipidemia Hepatitis C Elevated liver enzymes Hypothyroidism Depression Fibromyalgia Asthma Type 2 diabetes mellitus with diabetic polyneuropathy Type 2 diabetes mellitus with hyperglycemia, with long-term current use of insulin group home current use of insulin Chronic kidney disease, stage 3 Surgical History Hx of colonoscopy Hx of hand surgery Hx of biopsy H/O oral surgery Family History Mother Diabetes Asthma Kidney stones HTN (hypertension) Brother Diabetes Father Bloodstream infection Social History Household Members: Spouse Are you a primary child day care teacher to a significant other at home: No Do you presently have visiting nurse or other home services: No Alcohol intake: current Alcohol intake frequency: does not drink Patient Tobacco Use Status: Never used Tobacco Current occupational status: disabled Assessment & Plan Assessment & Plan (1) Type 2 diabetes mellitus with diabetic chronic kidney disease: Code(s): E11.22 - Type 2 diabetes mellitus with diabetic chronic kidney disease Plan: Patient presents for pump training for iLet pump and CGM training today. The following topics were reviewed today: -Pump therapy basic concepts: Basal/bolus -Device settings: Bluetooth/mobile connection (if applicable), correct date and time, sound volume -CGM settings(if integrated system): CGM graft views and trend arrows, alerts and alarms, Start new sensor Insulin delivery settings Instructed patient to only use room temperature insulin, how to load cartridge or fill pod, with insulin. Fill tubing and cannula (if applicable) Inserting infusion set or starting pod Troubleshooting after starting new pod or inserting new insulin set: Occlusion, adhesive tape sensitivity, redness Check BG 2 hours after site change Safety information: Importance of a backup plan, for manual injections, proper prescriptions and emergency supplies ketone strips, and rules for testing for ketones Backup plan given Patient was able to insert insulin set today without difficulty. Patient understands the basic concepts of pump therapy, how to give insulin for meals and snacks, how to troubleshoot for hyper and hypoglycemia. Patient will follow up with CDE as instructed Patient will contact CDE with questions or concerns, patient given IT number to support in any technical issues related to insulin pump Portions of this note were created using voice recognition software, please excuse any words or phrases that may have been misinterpreted. Patient Instructions: Follow up with Diabetes Education Nurse in 1 week Coding Level of Care Code Est Pt Level 1 (45243) Diagnoses Type 2 diabetes mellitus with diabetic chronic kidney disease E11.22
== END 2024-07-17 10:48 | disposition home or self-care (01) ==
LOC: HO.ENCR 08:44
PROVIDERS: PCP Internal Medicine; Visit Provider Registered Nurse Diabetes Educator
DX: E11.22 Type 2 diabetes mellitus with diabetic chronic kidney disease (principal)

== ENCOUNTER → 2024-07-17 08:44 | Outpatient (BNVA) | payer MEDICAID, SELFPAY | PROVIDERS: PCP Internal Medicine; Visit Provider Registered Nurse Diabetes Educator | DX: E11.22 Type 2 diabetes mellitus with diabetic chronic kidney disease (principal); N18.30 Chronic kidney disease, stage 3 unspecified; Z96.41 Presence of insulin pump (external) (internal) | CPT/HCPCS: 99211 ==

== ENCOUNTER 2024-07-31 12:25 | Outpatient (AMB) | payer MEDICAID, SELFPAY ==
--- NOTE | 2024-07-31 12:52 | MHC.AMDMED ---
Intake Intake Visit Reasons: 60 min-confirmed Production Machine Shop Supervisor Required: Yes Production Machine Shop Supervisor Language: Guatemalan Accompanied by: Self / Same As Patient Allergies seafood Allergy (Severe, Verified 07/07/24 14:32) throat closes codeine [Tylenol-Codeine] Allergy (Intermediate, Verified 07/07/24 14:32) rash HPI Comprehensive Diabetes Asmnt Most Recent Diabetes Results: Microalb/Creat Ratio 12.2 ug/mg cr (<30) 07/12/24 Cholesterol 179 mg/dL (<200) 07/12/24 HDL Cholesterol 36 mg/dL (>40) L 07/12/24 Triglycerides 170 mg/dL (<150) H 07/12/24 Creatinine 0.88 mg/dL (0.5-1.4) 07/12/24 Blood Urea Nitrogen 11 mg/dL (9-16) 07/12/24 Sodium 141 mmol/L (135-145) 07/12/24 Potassium 4.7 mmol/L (3.3-5.1) 07/12/24 Chloride 107 mmol/L (96-108) 07/12/24 Carbon Dioxide 26 mmol/L (22-29) 07/12/24 Calcium 9.1 mg/dL (8.4-10.2) 07/12/24 [facility] Medical History (Updated 07/13/24 @ 07:53 by Elsa Esparza NP) Liver cirrhosis Hyperlipidemia Hepatitis C Elevated liver enzymes Hypothyroidism Depression Fibromyalgia Asthma Type 2 diabetes mellitus with diabetic polyneuropathy Type 2 diabetes mellitus with hyperglycemia, with long-term current use of insulin MCC current use of insulin Chronic kidney disease, stage 3 Surgical History Hx of colonoscopy Hx of hand surgery Hx of biopsy H/O oral surgery Family History Mother Diabetes Asthma Kidney stones HTN (hypertension) Brother Diabetes Father Bloodstream infection Social History Household Members: Spouse Are you a primary multi care technician to a significant other at home: No Do you presently have visiting nurse or other home services: No Alcohol intake: current Alcohol intake frequency: does not drink Patient Tobacco Use Status: Never used Tobacco Current occupational status: disabled Assessment & Plan Assessment & Plan (1) Type 2 diabetes mellitus with diabetic chronic kidney disease: Code(s): E11.22 - Type 2 diabetes mellitus with diabetic chronic kidney disease Plan: Patient presents for pump training for iLet pump and CGM training today. The following topics were reviewed today: Patient is currently off pump she became frustrated because pump loss connection with CGM, pump screens are in Romanian there are no Guatemalan options. She did call beta by an a customer support but she was on hold for a long time waiting for Guatemalan-speaking assistance. Patient has resumed Tresiba U 200 80 units daily Humalog 32 units prior to meals - Off pump backup insulin plan iLet Alerts: ??? High Alert: 300 mg/dl ??? Low Alert: 75 mg/dl Instructed patient to only use room temperature insulin, how to load cartridge or fill pod, with insulin. Fill tubing and cannula (if applicable) Troubleshooting after starting new pod or inserting new insulin set: Occlusion, adhesive tape sensitivity, redness Check BG 2 hours after site change Reviewed Safety information: Importance of a backup plan, for manual injections, proper prescriptions and emergency supplies ketone strips, and rules for testing for ketones We will reach out to patient will be have more information about Guatemalan language instructed Portions of this note were created using voice recognition software, please excuse any words or phrases that may have been misinterpreted. Coding Level of Care Code Est Pt Level 1 (22788) Diagnoses Type 2 diabetes mellitus with diabetic chronic kidney disease E11.22
== END 2024-07-31 13:48 | disposition home or self-care (01) ==
PROVIDERS: PCP Internal Medicine; Visit Provider Registered Nurse Diabetes Educator
DX: E11.22 Type 2 diabetes mellitus with diabetic chronic kidney disease (principal)

== ENCOUNTER → 2024-07-31 12:25 | Outpatient (BNVA) | payer MEDICAID, SELFPAY | PROVIDERS: PCP Internal Medicine; Visit Provider Registered Nurse Diabetes Educator | DX: E11.22 Type 2 diabetes mellitus with diabetic chronic kidney disease (principal); N18.9 Chronic kidney disease, unspecified; Z71.89 Other specified counseling; Z79.4 Long term (current) use of insulin | CPT/HCPCS: 99211 ==

== ENCOUNTER 2024-08-04 13:00 | Outpatient (RCR) | payer MEDICAID, SELFPAY ==
--- NOTE | 2024-07-19 15:00 | MHC.OT.EP ---
[address] [phone] Occupational Therapy Plan of Care Patient Name: Renata David Date of Evaluation: 07/18/24 Diagnosis: R sided hand/ wrist stiffness Pain Location: ulnar side of hand/ wrist/ and elbow Pain Score: 6 Pain Scale Used: Numeric (0 - 10) Aggravating Factors: Movement use Alleviating Factors: rosibel Armendariz Assessment: Pt is a 54 yr. old R hand dominant female who has been referred to skilled OT therapy for R hand pain and stiffness from over guarding and over bracing her R hand/wrist. Pt reports in November she was given a wrist cock up brace by the MD for CTS and told to wear it at night; but pt. became reliant on it during the day to help w/ pain. She reports she rarely removes the brace due to support from it helping her to complete her ADLs. She no longer reports pain in D1-3 but reports pain and tingling in her SF & RF. She also presents today w/ a shoulder harness/ brace on preventing ROM of her shoulder and reports minimal ROM of her shoulder due to OA and/ or possible frozen shoulder which she has an appointment to see the MD in late Jul/ early August. Pt reports pain in SF/RF originates from her elbow, no ulnar clawing was observed today during her IE. Pt is limited in wrist/ FA/ hand ROM due to stiffness. She would benefit from skilled OT Therapy to decrease pain and increase ROM, strength, and functional use of her R hand Frequency and Duration: The patient will be seen Short Term Goals: Pt will be complaint w/ HEP Pt will be complaint w/ weaning from splint Pt will report 4/10 pain w/ activity Chcf Goals: Pt will supinate/pronate her R UE W/out reports of pain Pt will report using her R hand/ UE to sweep w/ minimal pain Pt will report 2/10 pain in wrist/ hand w/ activity Treatment Plan: Therapeutic Exercise Therapeutic Activity Home Exercise Program Splinting Patient Education Desensitization/Sensory Re-ed Edema Control ADL Training Ultrasound NMES Iontophoresis Paraffin Fluidotherapy MHP Cold Packs Joint Mobilization Soft Tissue Mobilization Kinesiotaping Other (see comments) discussed w/ pt . weaning from brace to avoid stiffness in hand/ wrist Electronically Signed By: Bernadette Mota OTR/L Please Sign and return to therapist. Thank you once again for your referral.
== END 2024-11-03 09:33 | disposition home or self-care (01) ==
LOC: HO.OT 13:00
PROVIDERS: PCP Internal Medicine
DX: M25.641 Stiffness of right hand, not elsewhere classified (principal)
CPT/HCPCS: 97110; 97140; 97166

== ENCOUNTER 2024-08-08 05:43 | Outpatient (REF) | payer MEDICAID, SELFPAY ==
--- NOTE | 2024-08-08 05:42 | EMG_ITS ---
FINDINGS: Right median and ulnar motor and sensory studies were performed. Right radial sensory and median lateral antecubital brachial sensory studies were performed and paraspinal muscles were tested with a needle. IMPRESSION: 1. Moderately severe right median neuropathy across carpal tunnel. 2. Mild right ulnar neuropathy across cubital tunnel. MD GUME Mckeon/MALIKA / [phone]
== END 2024-08-08 05:44 | disposition home or self-care (01) ==
LOC: HO.NEURO 05:43
PROVIDERS: PCP Internal Medicine
DX: Z13.89 Encounter for screening for other disorder (principal)

== ENCOUNTER 2024-08-16 11:58 | Outpatient (AMB) | payer MEDICAID, SELFPAY ==
--- NOTE | 2024-08-16 11:58 | MHC.OFFVIS ---
Vital Signs 08/16/24 11:59 Height 5 ft 4 in Weight 174 lb BMI 29.9 Intake Visit Reasons: New prob- Right shoulder pain Intake Note: Renata 54 yr old right hand dominant female presents today for a new problem visit for her right shoulder. States pain started about 3 months ago. No injury she can recall. States she was seen at urgent care. where xrays were taken. Denies numbness and tingling. Allergies seafood Allergy (Severe, Verified 08/16/24 12:04) throat closes codeine [Tylenol-Codeine] Allergy (Intermediate, Verified 08/16/24 12:04) rash Medication List - Last Reviewed 08/16/24 by MOR Lambert acetone (urine) test (Ketone Urine Test strips) tid prn for glucose over 250, nausea and vomiting albuterol sulfate 90 mcg/actuation (Ventolin HFA) 2 puffs inhalation Q4-6H PRN atorvastatin 20 mg PO DAILY bisacodyl (Dulcolax (bisacodyl)) 10 mg (2 x 5 mg) PO BEDTIME blood sugar diagnostic (FreeStyle Lite Strips) As directed blood-glucose meter (FreeStyle Lite Meter kit) As directed blood-glucose sensor (Heart Health G7 Sensor device) every 10 days buspirone 7.5 mg PO TID clonazepam 0.5 mg PO BID PRN docusate sodium 200 mg (2 x 100 mg) PO BEDTIME escitalopram oxalate 20 mg PO DAILY fluticasone propionate 50 mcg/actuation intranasal DAILY gabapentin 300 mg PO DAILY glucagon 3 mg/actuation (Baqsimi) 3 mg intranasal BID PRN MDD 6 mg hydroxyzine HCl 25 mg PO BID PRN insulin degludec (Tresiba FlexTouch U-200 insulin) 80 units (0.4 mL) subcut DAILY 30 days insulin lispro (Humalog KwikPen (U-100) Insulin) 32 units (0.32 mL) subcut TID 28 days insulin lispro (Humalog U-100 Insulin) Infused up to 130 units daily via insulin pump subcutaneously use as directed; 30 days lancets (FreeStyle Lancets) As directed levothyroxine 50 mcg PO DAILY 90 days lidocaine 5% 1 patch topical DAILY lisinopril 10 mg PO DAILY melatonin mg PO naproxen (Naprosyn) 500 mg PO BID omeprazole 20 mg PO DAILY semaglutide (Ozempic) 2 mg (0.75 mL) subcut QWEEK simethicone (Gas Relief (simethicone)) 125 mg PO TID-QID PRN trazodone 200 mg PO BEDTIME HPI HPI New prob- Right shoulder pain: Details: 54-year-old right hand dominant female who presents to the office today with an language interpreter for an evaluation of right shoulder pain for about 3 months. She denies any injury on her shoulder. She was seen at urgent care where x-rays were performed and she was given a brace. She states she has pain in her right shoulder that is aggravated with overhead reaching and lifting. She denies any numbness or tingling. She has not had any physical therapy in the past. [facility] Medical History (Updated 08/16/24 @ 12:04 by Cristhian Vann PA-C) Liver cirrhosis Hyperlipidemia Hepatitis C Elevated liver enzymes Hypothyroidism Depression Fibromyalgia Asthma Type 2 diabetes mellitus with diabetic polyneuropathy Type 2 diabetes mellitus with hyperglycemia, with long-term current use of insulin detention current use of insulin Chronic kidney disease, stage 3 Surgical History Hx of colonoscopy Hx of hand surgery Hx of biopsy H/O oral surgery Family History Mother Diabetes Asthma Kidney stones HTN (hypertension) Brother Diabetes Father Bloodstream infection Social History Household Members: Spouse Are you a primary manager long term care to a significant other at home: No Do you presently have visiting nurse or other home services: No Alcohol intake: current Alcohol intake frequency: does not drink Patient Tobacco Use Status: Never used Tobacco Current occupational status: disabled Review of Systems Const All systems reviewed & are unremarkable except as noted in HPI and below Physical Exam Vital Signs: BMI result Body Mass Index 29.9 Extrem Other: Right shoulder: Normal to inspection. Tenderness over the bicipital groove and along the deltoid region of the shoulder. Forward flexion to 175, external rotation to 90, internal rotation to S1. 5/5 RTC strength. Negative Castro and cross body abduction. NVI. ? Results Reviewed Results Reviewed: XR shoulder RT min 2V IMPRESSION: Moderate glenohumeral and mild acromioclavicular osteoarthritis. Spurring versus loose body along the inferior aspect of the glenoid measuring up to 1.8 cm. Assessment & Plan Assessment & Plan (1) Right shoulder tendinitis: Code(s): M77.8 - Other enthesopathies, not elsewhere classified Category: Medical Plan We discussed options today, which include steroid injection. The patient did consent to move forward with the right shoulder injection, which was tolerated well. I recommended rest, ice, and elevation and OTC anti-inflammatories as needed for discomfort. If symptoms persist or worsens over the next 6-8 weeks, patient will contact the office, otherwise follow-up as needed. Orders: Orders PT Evaluation and Treatment Today M77.8 - Other enthesopathies, not elsewhere classified Patient Instructions: Scribed for Cristhian Vann PA-C, by Yahir Hardin spanish medical interpreter, on 08/16/2024 at 11:30 AM EST.? I, Cristhian Vann PA-C, have personally reviewed and agree with the information entered by the scribe. Coding Level of Care Code Est Pt Level 3 (05389) Complex EM visit Add On G2211 Diagnoses Right shoulder tendinitis M77.8
[2024-08-16 11:59] VITALS: BMI 29.9
== END 2024-08-16 12:08 | disposition home or self-care (01) ==
PROVIDERS: PCP Internal Medicine; Visit Provider Physician Assistant
DX: M77.8 Other enthesopathies, not elsewhere classified (principal)
CPT/HCPCS: 99213

== ENCOUNTER → 2024-08-16 11:58 | Outpatient (BNVA) | payer MEDICAID, SELFPAY | PROVIDERS: PCP Internal Medicine; Visit Provider Physician Assistant | DX: M25.511 Pain in right shoulder (principal); M77.8 Other enthesopathies, not elsewhere classified | CPT/HCPCS: 99212 ==

== ENCOUNTER 2024-09-29 10:25 | Outpatient (AMB) | payer MEDICAID, SELFPAY ==
--- NOTE | 2024-09-29 10:59 | MHC.OFFVIS ---
Vital Signs 09/29/24 11:00 Height 5 ft 4 in Weight 174 lb BMI 29.9 Intake Visit Reasons: OV- Right hand EMG review Intake Note: Renata is a 54 year old right hand dominant female who presents to the office today for an EMG review. States she is not interested in surgical intervention at the moment but would like to discuss her treatment options. IMPRESSION: 1. Moderately severe right median neuropathy across carpal tunnel. 2. Mild right ulnar neuropathy across cubital tunnel. [employer] Name: [id number] Allergies seafood Allergy (Severe, Verified 09/29/24 11:06) throat closes codeine [Tylenol-Codeine] Allergy (Intermediate, Verified 09/29/24 11:06) rash HPI HPI OV- Right hand EMG review: Details: Renata is a 54 year old right hand dominant female who presents to the office today for an EMG review. States she is not interested in surgical intervention at the moment but would like to discuss her treatment options. IMPRESSION: 1. Moderately severe right median neuropathy across carpal tunnel. 2. Mild right ulnar neuropathy across cubital tunnel. 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 coordinator current use of insulin Chronic kidney disease, stage 3 Surgical History Hx of colonoscopy Hx of hand surgery Hx of biopsy H/O oral surgery Family History Mother Diabetes Asthma Kidney stones HTN (hypertension) Brother Diabetes Father Bloodstream infection Social History Household Members: Spouse Are you a primary child care education coordinator to a significant other at home: No Do you presently have visiting nurse or other home services: No Alcohol intake: current Alcohol intake frequency: does not drink Patient Tobacco Use Status: Never used Tobacco Current occupational status: disabled Review of Systems Const All systems reviewed & are unremarkable except as noted in HPI and below Physical Exam Vital Signs: BMI result Body Mass Index 29.9 Const General: cooperative, healthy appearing and no acute distress Orientation/consciousness: patient oriented x3 HEENT Head: Yes normocephalic and Yes atraumatic Eyes EOM: EOMs intact bilaterally Resp Effort & Inspection: normal respiratory effort and able to speak in complete sentences Cardio Jugular venous distension: no JVD Skin General skin exam: turgor normal Rashes: no rashes Neuro General: patient oriented x3 Extrem Other: Evaluation of Right Upper Extremity: The patient is alert, oriented, and in no acute distress Neuro: Median, Ulnar, Radial nerves motor and sensory intact and sensation is normal to the tips of all digits No thenar or intrinsic wasting Good APB muscle belly firing and good finger cross Good finger ABduction & ADduction Vascular: Cap refill brisk ROM: She can make a fist and extend all her digits She can place her hands flat on the table No locking or catching Skin: No lacerations or abrasions. General: No Ecchymosis. No Erythema or evidence of infection. Nerve Conduction Study: Right side only IMPRESSION: 1. This is an abnormal study. 2. There is electrodiagnostic evidence for right moderate-severe median neuropathy at the wrist, consistent with carpal tunnel syndrome. 3. There is no electrodiagnostic evidence for ulnar neuropathy, brachial plexopathy, or cervical radiculopathy. Alissa Pineda MD, JAEL 11/25/23 Psych Appearance: grossly normal Affect: normal affect Attitude: cooperative Assessment & Plan Assessment & Plan (1) Cubital tunnel syndrome on right: Code(s): G56.21 - Lesion of ulnar nerve, right upper limb Category: Medical (2) Carpal tunnel syndrome, right: Code(s): G56.01 - Carpal tunnel syndrome, right upper limb Category: Medical Plan 1. Right cubital tunnel syndrome 2. Right carpal tunnel syndrome Symptoms intermittent, daily, worse at night I educated the patient about the condition. I discussed both operative and nonoperative treatment options. The patient would like to proceed with surgery. The risks and benefits of operative treatment were discussed with the patient and the patient wishes to proceed with surgery. These risks include, but are not limited to, risk of damage to blood vessels, nerves, tendons, infection, recurrence, incomplete relief of preoperative symptoms, persistent pain, possible need for further surgery, and the risks associated with regional blocks and/or anesthesia. Plan is to take the patient to the operating room at some point in the next few weeks for the following procedures: 1. Right cubital tunnel release under general 2. Right carpal tunnel release under general All of the preoperative paperwork including the consent was discussed today. All of the patient's questions were answered in the clinic today. The patient understands that they will be in contact with our ophthalmic surgical assistant to discuss scheduling their procedure. Patient reports diabetes, last A1c 7.5 Denies blood thinners, asthma, heart issues, lung issues, kidney issues, or current smoking. Coding Level of Care Code Est Pt Level 4 (79119) Diagnoses Cubital tunnel syndrome on right G56.21 Carpal tunnel syndrome, right G56.01
[2024-09-29 11:00] VITALS: BMI 29.9
== END 2024-09-29 11:58 | disposition home or self-care (01) ==
PROVIDERS: PCP Internal Medicine
DX: G56.21 Lesion of ulnar nerve, right upper limb (principal); G56.01 Carpal tunnel syndrome, right upper limb
CPT/HCPCS: 99214

== ENCOUNTER → 2024-09-29 10:25 | Outpatient (BNVA) | payer MEDICAID, SELFPAY | PROVIDERS: PCP Internal Medicine | DX: G56.21 Lesion of ulnar nerve, right upper limb (principal); G56.01 Carpal tunnel syndrome, right upper limb | CPT/HCPCS: 99212 ==

== ENCOUNTER 2024-10-05 17:01 | Outpatient (REF) | payer MEDICAID, SELFPAY | END 2024-10-05 17:02 | disposition home or self-care (01) | LOC: HO.HHCLNP 17:01 | PROVIDERS: Visit Provider Internal Medicine | DX: R39.9 Unspecified symptoms and signs involving the genitourinary system (principal) | CPT/HCPCS: 87086 ==

== ENCOUNTER → 2024-10-06 13:20 | Outpatient (BNVA) | payer MEDICAID, SELFPAY | PROVIDERS: PCP Internal Medicine; Visit Provider Nurse Practitioner Adult Health | DX: E11.65 Type 2 diabetes mellitus with hyperglycemia (principal); Z79.4 Long term (current) use of insulin | CPT/HCPCS: 82947; 83036; 99212 ==

== ENCOUNTER 2024-10-17 10:43 | Outpatient (REF) | payer MEDICAID, SELFPAY ==
--- OUTSIDE RECORDS SUMMARY | 2024-10-17 11:36 | XMS_ITS | Encounter Summary ---
Author Organization [employer] Address [address] [facility] 7t [place] [address] Care Team Providers Care Glass Cut Off Supervisor Name Role Phone Renetta Gómez MD Primary Care Provide r Encounter Details Date Type Department Care Team (Late st Contact Info) Description 10/06/2024 Orders Only GENERIC EXTERNAL DATA DEPARTMENT Provider, Generic External Data Social History Tobacco Use Types Packs/Day Years Used Date Smoking Tobacco: Never Passive Smoke Exposure: Never Smokeless Tobacco: Never Alcohol Use Standard Drinks/Week Comments Never 0 (1 standard drink = 0.6 oz pur e alcohol) Depression Answer Date Recorded Patient Health Questionnaire-9 Score 0 04/06/2023 Housing Stability Answer Date Recorded What is your housing situation today? I have john springer 06/29/[address] you li ve. Do you have problems with any of the following? None of the above 06/29/2023 Food Insecurity Answer Date Recorded Within the past 12 months, y ou worried that your food would run out before you got money to buy more: Never True 09/25/2024 Within the past 12 months,th e food you bought just didn't last and you didn't have enough money to get more: Never True Transportation Answer Date Recorded In the past 12 months, has l ack of transportation kept you from medical appts, meetings, work or from getting things needed for daily living? No 09/25/2024 Utilities Answer Date Recorded In the past 12 months, has t he electric, gas, oil or water company threatened to shut off services in your home? No 06/29/2023 Depression Answer Date Recorded Patient Health Questionnaire-2 Score 0 04/06/2023 Internet Access Answer Date Recorded Internet Access Q1 Yes 09/25/2024 Internet Access Q2 Not on file 09/25/2024 Comments Unknown Sex and Gender Information Value Date Recorded Sex Assigned at Female 07/13/2022 10:35 AM EDT Legal Sex Female 10:35 AM EDT Gender Identity Female 07/13/2022 10:35 AM EDT Sexual Orientation Straight 07/13/2022 10 :35 AM EDT documented as of this encounter Plan of Treatment Upcoming Encounters Date Type Department Care Team (Late st Contact Info) Description 11/30/2024 1:30 PM EDT Office Visit [facility] [address] [place], [place] [phone] RjParthan, OD [address] [place], [place] [phone] documented as of this encounter Procedures Procedure Name Priority Date/Time Associated Diagnosis Comments GLUCOSE, WHOLE BLOOD Routine 10/06/2024 1:59 PM EST documented in this encounter Results * Glucose, Whole Blood (10/06/2024 1:59 PM EST) Glucose, Whole Blood 76 60 - 115 mg/dL [facility] Comment:METER #: [id number] Testing performed in the Endocrinology Department [address] , [address], [facility]. 10/06/2024 1:59 PM EST 10/06/2024 2:13 PM EST us Generic External Data Provider LAB BLOOD ORDERAB LES Final Result [facility] [address] [place] [address] [phone] documented in this encounter Visit Diagnoses Not on filedocumented in this encounter Additional Health Concerns Assessment Noted Time PHQ-9 Depression Total Score: 0 04/06/20 23 10:11 AM EDT documented as of this encounter Care Teams Glass Cut Off Supervisor Relationship Specialty Start Date End Date Renetta Gómez MD [address] [place], [place] [phone] PCP - General Family Medicine 12/29/18 documented as of this encounter
--- OUTSIDE RECORDS SUMMARY | 2024-10-17 11:36 | XMS_ITS | Encounter Summary ---
Author Organization [employer] Address [address] [place] [address] 7 [place] [address] Care Team Providers Care Grab Jack Man Name Role Phone Renetta Gómez MD Primary Care Provide r Encounter Details Date Type Department Care Team (Late st Contact Info) Description 11/10/2022 Orders Only [facility] [address] [place] [address] Lizbeth Navarro LPN Social History Tobacco Use Types Packs/Day Years Used Date Smoking Tobacco: Never Assessed Comments Unknown Sex and Gender Information Value [...] Description 11/30/2024 1:30 PM EDT Office Visit [facility] [address] [place] [address] Betina De La Rosa, OD [address] [place] [address] documented as of this encounter Visit Diagnoses Not on filedocumented in this encounter Care Teams Grab Jack Man Relationship Specialty Start Date End Date Renetta Gómez MD [address] [place] [address] PCP - General Family Medicine 12/29/18 documented as of this encounter
--- OUTSIDE RECORDS SUMMARY | 2024-10-17 11:36 | XMS_ITS | Encounter Summary ---
Author Organization [employer] Address [address] [facility] [address] [place] [address] Care Team Providers Care Sightseeing Guide Name Role Phone Renetta Gómez MD Primary Care Provide r Encounter Details Date Type Department Care Team (Late st Contact Info) Description 06/16/2023 Orders Only [facility] [address] [place], [place] [phone] Lizbeth Navarro LPN Social History Tobacco Use Types Packs/Day Years Used Date Smoking Tobacco: Never Passive Smoke Exposure: Never Smokeless Tobacco: Never Depression Answer Date Recorded Patient Health Questionnaire-9 Score 0 04/06/2023 Depression Answer Date Recorded Patient Health Questionnaire-2 Score 0 04/06/2023 Comments Unknown Sex and Gender Information Value [...] [facility] [address] [place], [place] [phone] Betina De La Rosa, OD [address] [place], [place] [phone] documented as of this encounter Visit Diagnoses Not on filedocumented in this encounter Additional Health Concerns Assessment Noted Time PHQ-9 Depression Total Score: 0 04/06/20 10:11 AM EDT documented as of this encounter Care Teams Sightseeing Guide Relationship Specialty Start Date End Date Renetta Gómez MD [address] [place] [address] PCP - General Family Medicine 12/29/18 documented as of this encounter
--- OUTSIDE RECORDS SUMMARY | 2024-10-17 11:36 | XMS_ITS | Encounter Summary ---
Author Organization [employer] Address [address] [facility] 7t [place] [address] Care Team Providers Care Tamping Machine Operator Road Forms Name Role Phone Renetta Gómez MD Primary Care Provide r Reason for Visit * Reason Comments Med Refill Encounter Details Date Type Department Care Team (Late st Contact Info) Description 09/25/2023 Refill [facility] [address] [place], [place] [phone] Renetta Gómez MD [address] [place], [place] [phone] Hypothyroidism, unspecified type Social History Tobacco Use Types Packs/Day Years [...] got money to buy more: Never True 06/29/2023 Within the past 12 months,th e food you bought just didn't last and you didn't have enough money to get more: Never True Transportation Answer Date Recorded In the past 12 months, has l ack of transportation kept you from medical appts, meetings, work or from getting things needed for daily living? No 06/29/2023 Utilities Answer Date Recorded In the past [...] Description 11/30/2024 1:30 PM EDT Office Visit [facility] [address] [place] [address] Betina De La Rosa, OD [address] [place] [address] documented as of this encounter Visit Diagnoses Diagnosis Hypothyroidism, unspecified type documented in this encounter Additional Health Concerns Assessment Noted Time PHQ-9 Depression Total Score: 0 04/06/20 23 10:11 AM EDT documented as of this encounter Care Teams Tamping Machine Operator Road Forms Relationship Specialty Start Date End Date Renetta Gómez MD [address] [place] [address] PCP - General Family Medicine 12/29/18 documented as of this encounter
--- OUTSIDE RECORDS SUMMARY | 2024-10-17 11:36 | XMS_ITS | Encounter Summary ---
Author Organization [facility] Address [address] [place] [address] Care Team Providers Care High School Admissions Representative Name Role Phone Renetta Gómez MD Primary Care Provide r Reason for Visit * Reason Comments Follow-up Diabetic foot care Encounter Details Date Type Department Care Team (Late st Contact Info) Description 10/16/2024 1:45 PM EST Office Visit [facility] - [facility] [address] [phone] Ed Cowart, DPM [address] [phone] Dermatophytosis of nail (Primary Dx); Diabetic mononeuropathy simplex (CMS/HCC); Acquired hammer toe of right foot; Hammer toe of left foot; Type II diabetes mellitus with peripheral circulatory disorder (CMS/HCC) Social History Tobacco Use Types Packs/Day Years Used Date Smoking Tobacco: Never Assessed Sex and Gender Information Value Date Recorded Sex Assigned at Not on file Gender Identity Not on file Sexual Orientation Not on file Job Start Date Occupation Industry Not on file Not on file Not on file documented as of this encounter Last Filed Vital Signs Vital Sign Reading Time Taken Comments Blood Pressure - - Pulse - - Temperature - - Respiratory Rate - - Oxygen Saturation - - Inhaled Oxygen Concentration - - Weight 78.5 kg (173 lb) 10/16/2024 1:27 PM EST Height 162.6 cm (5' 4.02 ) 10/16/2024 1:27 PM ES T Body Mass Index 29.68 10/16/2024 1:27 PM EST documented in this encounter Ordered Prescriptions Prescription Sig Dispensed Refills Start Date End Da te ciclopirox (LOPROX) 0.77 % gel Apply topically 2 (two) times a day. 45 g 10/16/2024 01/14/2025 documented in this encounter Progress Notes * Ed Cowart, ALEXM - 10/16/2024 1:45 PM EST S: Patient presents for evaluation of her feet notes thickening nails and skin that she does not feel her right foot is a type II diabetic has numbness burning tingling constantly sees her PCP once a year states that the numbness burning has been bothering she does note that her toes been curling Patient states stopped medication made it felt like it irritated her skin she is wanting something different could be prescribed to the irritation she got from the topical lotion content writer was utilized for this encounter [id number] ROS: GENERAL: Pt denies nausea, fever, vomiting, chills, or shortness of breath. Pt in NAD. CARDIOLOGY: pt denies chest pain, palpitations LUNGS: pt denies shortness of breath MUSCULOSKELETAL: See HPI, otherwise no joint pain or swelling, back pain, or muscle pain. SKIN: see HPI, otherwise no lesions, rash or itching NEURO: No persistent headache, weakness or numbness The remainder of the review of systems is noncontributory PAST MEDICAL HISTORY: Patient Active Problem List Diagnosis Code Onychomycosis B35.1 Pruritus L29.9 T2DM (type 2 diabetes mellitus) ([facility]) E11.9 Right hand pain M79.641 SOCIAL HISTORY: Social History Tobacco Use Smoking status: Not on file Smokeless tobacco: Not on file Substance Use Topics Alcohol use: Not on file History Never marked as reviewed. ACTIVE MEDICATIONS: Current Outpatient Medications Medication Sig Dispense Refill clotrimazole (LOTRIMIN) 1 % cream Apply to skin and toenails daily for 12 weeks 45 g 3 No current facility-administered medications for this visit. ALLERGIES: Shellfish allergy and Tylenol with codeine PHYSICAL EXAM: Height 5' 4 (1.626 m), weight 173 lb 9.6 oz (78.7 kg). Estimated body mass index is 29.8 kg/m?? ascalculated from the following: Height as of this encounter: 5' 4 (1.626 m). Weight as of this encounter: 173 lb 9.6 oz (78.7 kg). PODIATRIC EXAMINATION: GENERAL: Patient appears well nourished, with NAD. VASCULAR: Dorsalis pedis pulses are 2/4 bilaterally and Posterior tibial pulses are 2/4 bilaterally. Capillary filling time within normal limits the digits. No pallor on elevation or rubor on dependency. Positive hair growth. No varicosities. Denies rest pain or claudication pain. NEUROLOGICAL: Sharp/dull sensation , protective sensation 5/10 with 5.07 semmes sid bilaterally, vibratory sensation with tuning fork intact to the tibial tuberosity. ORTHOPEDIC: Good muscle strength 5/5 of all flexors and extensors. Dorsi flexion of ankle ,10 degrees, plantar flexion WNL. No muscle atrophy. DERMATOLOGICAL:.Toenails: Left Toenail(s) 1: Crumbling subungual debris, discoloration, dystrophy, elongation, mycotic appearance, onychomycosis, pain and thickening. Annular scaling bilateral feet moccasin distribution BIOMECHANICS: STJ ROM wnl, MTJ ROM wnl, 1st MPJ ROM wnl. Semireducible semirigid hammertoes 2 through 5 bilateral IMAGING: IMPRESSION: 1. Dermatophytosis of nail 2. Diabetic mononeuropathy simplex (CMS/HCC) 3. Acquired hammer toe of right foot 4. Hammer toe of left foot 5. Type II diabetes mellitus with peripheral circulatory disorder (CMS/HCC) PLAN: Pt was seen and examined, history reviewed. Discussed with patient regarding proper glucose control, exercise, and diet. Explained to patient proper shoe gear, and importance of daily foot checks. I reviewed neuropathy and why it occurs in diabetics. I educated the patient on proper blood sugar control and the importance of an HgBA1c of less than 7.0%. I reviewed the signs and symptoms of neuropathy with the patient Ciclopirox prescribed Biopsy results reviewed positive for onychomycosis Oral therapy and other options were discussed and reviewed would recommend definitive diagnosis prior to pursuing medication by mouth due to risks of Lamisil Labs reviewed from 03/31/2024 abnormal patient is not a candidate for oral therapy Treatment options for hammertoe contracture discussed deformities of both feet were discussed and reviewed would recommend continue with accommodative treatment modalities diabetic shoes were offeredpatient declined Follow-up in 1 month Ed Cowart DPM documented in this encounter Plan of Treatment Upcoming Encounters Date Type Department Care Team (Late st Contact Info) Description 01/16/2025 1:00 PM EDT Office Visit Orthopedic Surgery - [facility] [address] [phone] Ed Cowart, DPM [address] [phone] documented as of this encounter Visit Diagnoses Diagnosis Dermatophytosis of nail- Primary Diabetic mononeuropathy simplex (CMS/HCC) Type II or unspecified type diabetes mellitus with neurological manifestations, not stated as uncontrolled Acquired hammer toe of right foot Hammer toe of left foot Type II diabetes mellitus with peripheral circulatory disorder (CMS/HCC) Type II or unspecified type diabetes mellitus with peripheral circulatory disorders, not stated as uncontrolled documented in this encounter Care Teams High School Admissions Representative Relationship Specialty Start Date End Date Renetta Gómez MD [address] [place] [phone] PCP - General 08/25/23 documented as of this encounter
--- OUTSIDE RECORDS SUMMARY | 2024-10-17 11:36 | XMS_ITS | Encounter Summary ---
Author Organization [employer] Address [address] [place] [address] [address] [place] [address] Care Team Providers Care Grievance Manager Name Role Phone Renetta Gómez MD Primary Care Provide r Reason for Visit * Reason Comments Med Refill Encounter Details Date Type Department Care Team (Late st Contact Info) Description 06/16/2023 Refill [facility] [address] [place] [address] Roxana Quinonez MD [address] [place] [address] Social History Tobacco Use Types Packs/Day Years [...] Description 11/30/2024 1:30 PM EDT Office Visit [facility] [address] [place], [place] [phone] Betina De La Rosa, OD [address] [place] [address] documented as of this encounter Visit Diagnoses Not on filedocumented in this encounter Additional Health Concerns Assessment Noted Time PHQ-9 Depression Total Score: 0 04/06/20 23 10:11 AM EDT documented as of this encounter Care Teams Grievance Manager Relationship Specialty Start Date End Date Renetta Gómez MD [address] [place] [address] PCP - General Family Medicine 12/29/18 documented as of this encounter
--- OUTSIDE RECORDS SUMMARY | 2024-10-17 11:36 | XMS_ITS | Encounter Summary ---
Author Organization [employer] [facility] Address [address] [place] [address] [address] [place] [address] Care Team Providers Care Glaucoma Specialist Name Role Phone Renetta Gómez MD Primary Care Provide r Reason for Visit * Reason Comments Med Refill Encounter Details Date Type Department Care Team (Late st Contact Info) Description 03/24/2023 Refill [facility] [address] [place] [address] Roxana Quinonez MD [address] [place] [address] Social History Tobacco Use Types Packs/Day Years [...] Description 11/30/2024 1:30 PM EDT Office Visit [facility] [address] [place] [address] Betina De La Rosa, OD [address] [place] [address] documented as of this encounter Visit Diagnoses Not on filedocumented in this encounter Care Teams Glaucoma Specialist Relationship Specialty Start Date End Date Renetta Gómez MD [address] [place] [address] PCP - General Family Medicine 12/29/18 documented as of this encounter
--- OUTSIDE RECORDS SUMMARY | 2024-10-17 11:36 | XMS_ITS | Encounter Summary ---
Author Organization [employer] Address [address] [place] [address] Care Team Providers Care Insulation Applicator Name Role Phone Renetta Gómez MD Primary Care Provide r Reason for Visit * Reason Onset Date Comments PT1 05/24/2024 Encounter Details Date Type Department Care Team ([facility] st Contact Info) Description 05/24/2024 Telephone [facility] [address] [place], [place] [phone] Renetta Gómez MD [address] [place] [address] PT1 Social History Tobacco Use Types Packs/Day Years Used Date Smoking Tobacco: Never Passive Smoke Exposure: Never Smokeless Tobacco: Never Depression Answer Date Recorded Patient Health Questionnaire-9 Score 0 04/06/2023 Housing Stability Answer Date Recorded What is your housing situation today? I have johnbrittani springer 06/29/[address] you li ve. Do you have problems with any of the following? None of the above 06/29/2023 Food Insecurity Answer Date Recorded Within the past 12 months, y ou worried that your food would run out before you got money to buy more: Sometimes True 2023 Within the past 12 months,th e food you bought just didn't last and you didn't have enough money to get more: Sometimes True 01/18/2024 Transportation Answer Date Recorded In the past 12 months, has l ack of transportation kept you from medical appts, meetings, work or from getting things needed for daily living? Yes, it has kept me from medical appointments or getting medications. 01/18/2024 Utilities Answer Date Recorded In the past [...] AM EDT documented as of this encounter Miscellaneous Notes * Telephone Encounter - Vanesa Cadet - 05/24/2024 12:47 PM EDT Patient calling requesting PT1 Home Address verified: Y/N: Yes Provider name or facility name: Ed Cowart DPM Facility Address: [address] [place] [address] Escort needed: Y/N: Yes Do you have a wheelchair: Y/N: No If yes- Manual or electric: Visits: 4-5 visits a year documented in this encounter Plan of Treatment Upcoming Encounters Date Type Department Care Team (Late st Contact Info) Description 11/30/2024 1:30 PM EDT Office Visit [facility] OPTOM[facility] [address] [place] [address] Rj, Betina, OD [address] [place] [address] documented as of this encounter Visit Diagnoses Not on filedocumented in this encounter Additional Health Concerns Assessment Noted Time PHQ-9 Depression Total Score: 0 04/06/20 23 10:11 AM EDT documented as of this encounter Care Teams Insulation Applicator Relationship Specialty Start Date End Date Renetta Gómez MD [address] [place] [address] PCP - General Family Medicine 12/29/18 documented as of this encounter
--- OUTSIDE RECORDS SUMMARY | 2024-10-17 11:37 | XMS_ITS | Clinical Summary ---
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 TAKE 1/2 HOUR BEFORE MEALS 06/11/20 Active clonazePAM (KlonoPIN) 0.5 MG tablet TAKE 1 TABLET BY MOUTH two (2) times a day NEEDED 06/11/20 23 Active escitalopram (Lexapro) 20 MG tablet Take 20 mg by mouth in the morning. 06/23/20 23 Active traZODone (Desyrel) 150 MG tablet Take 150 mg by mouth at bedtime. 06/11/20 23 Active Continuous Blood Gluc Risk Officer (FreeStyle Oren 2 Calhoun) deviceIndications :Type 2 diabetes mellitus with hyperglycemia, with long-term current use of insulin ([facility]) Scan sensor every 8 hours 1 each 07/01/20 23 Active Continuous Blood Gluc Sensor (FreeStyle Oren 2 Sensor) miscIndications:T ype 2 diabetes mellitus with hyperglycemia, with long-term current use of insulin ([facility]) Apply 1 sensor every 14 days 2 each 07/01/20 23 Active Trulicity 4.5 MG/0.5ML solution pen-injectorIndic ations:Type 2 diabetes mellitus with hyperglycemia ([facility]) INJECT 4.5 mg SUBCUTANEOUSLY EVERY WEEK 2 mL 3 10/06/19 24 Active EPINEPHrine (Epipen) 0.3 MG/0.3ML injection syringeIndication s:Seafood allergy Inject 0.3 mL (0.3 mg) as directed 1 (one) time if needed for anaphylaxis. Inject into upper leg. Call 911 after use. 2 each 12/09/19 24 Active levothyroxine (Synthroid, Levoxyl) 25 MCG tabletIndications :Hypothyroidism, unspecified type TAKE 1 TABLET BY MOUTH ONCE DAILY BEFORE BREAKFAST 90 tablet 3 12/23/19 24 Active naproxen (Naprosyn) 500 MG tablet TAKE 1 TABLET BY MOUTH two (2) times a day 12/21/19 24 Active Melatonin Maximum Strength 5 MG tablet TAKE 2 TABLETS (10 mg) BY MOUTH EVERY NIGHT AT BEDTIME 12/23/19 24 Active lidocaine (Lidoderm) 5 % patch APPLY 1 PATCH TOPICALLY ONCE DAILY. remove patch after 12 hours. leave on most painful area 12/21/19 24 Active docusate sodium (Colace) 100 MG capsule TAKE TWO CAPSULES BY MOUTH ONCE DAILY AT BEDTIME 12/23/19 24 Active Bisacodyl EC 5 MG EC tablet TAKE 2 TABLETS BY MOUTH ONCE DAILY AT BEDTIME 11/05/19 24 Active albuterol 108 (90 Base) MCG/ACT inhaler Inhale 2 puffs every 6 (six) hours if needed for wheezing. 18 g 11 02/29/20 24 025 Active fluticasone (Flonase) 50 MCG/ACT nasal spray Administer 2 sprays into each nostril Once per day. Shake gently. Before first use, prime pump. After use, clean tip and replace cap. 16 g 2 02/29/20 24 025 Active traZODone (Desyrel) 100 MG tabletIndications :Primary insomnia Take 2 tablets (200 mg) by mouth at bedtime. 60 tablet 1 05/17/20 24 Active Ozempic, 1 MG/DOSE, 4 MG/3ML solution pen-injector INJECT 1mg SUBCUTANEOUSLY EACH WEEK 05/29/20 Active Baqsimi Two Pack 3 MG/DOSE nasal powder SPRAY ONCE IN 1 NOSE two (2) times a day NEEDED FOR low glucose. USE 3 (THREE) TIMES A DAY FOR NAUSEA OR FOR VOMITING. maximum 6mg/day 04/14/20 24 Active bacitracin 500 UNIT/GM ointment APPLY TO THE AFFECTED AREA two (2) times a day 03/15/20 24 Active Ketostix strip USE 3 (THREE) TIMES A DAY NEEDED FOR glucose >250, FOR NAUSEA AND FOR VOMITING 04/11/20 24 Active clotrimazole (Lotrimin) 1 % creamIndications: Onychomycosis APPLY TO THE AFFECTED AREA TOPICALLY ONCE DAILY 06/14/20 24 Active atorvastatin (Lipitor) 20 MG tablet Take 1 tablet (20 mg) by mouth Once per day. 90 tablet 3 08/07/20 24 Active gabapentin (Neurontin) 300 MG capsuleIndication s:Type 2 diabetes mellitus with hyperglycemia (CMS/HCC) Take 1 capsule by mouth once daily 30 capsule 11 08/07/20 24 Active hydrOXYzine HCl (Atarax) 25 MG tabletIndications :Pruritus TAKE 1 TABLET BY MOUTH two (2) times a day NEEDED 60 tablet 2 08/07/20 24 Active insulin degludec (Tresiba FlexTouch) 200 UNIT/ML injectionIndicati ons:Type 2 diabetes mellitus with hyperglycemia (CMS/HCC) INJECT 74 UNITS SUBCUTANEOUSLY ONCE DAILY 18 mL 3 08/07/20 24 Active insulin lispro (HumaLOG) 100 UNIT/ML injectionIndicati ons:Type 2 diabetes mellitus with hyperglycemia (CMS/HCC),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 4 mL 2 08/07/20 24 Active lisinopril 10 MG tablet TAKE 1 TABLET BY MOUTH ONCE DAILY 90 tablet 3 08/07/20 24 Active omeprazole (PriLOSEC) [address] capsuleIndication s:Gastroesophagea l reflux disease, unspecified whether esophagitis present Take 1 capsule (40 mg) by mouth before breakfast. Do not crush or chew. 90 capsule 08/07/20 24 Active pioglitazone (Actos) 15 MG tabletIndications :Type 2 diabetes mellitus with diabetic polyneuropathy (CMS/HCC) Take 1 tablet (15 mg) by mouth Once per day. 90 tablet 3 08/07/20 24 Active nitrofurantoin, macrocrystal-mono hydrate, (Macrobid) 100 MG capsuleIndication s:UTI symptoms Take 1 capsule (100 mg) by mouth 2 times daily for 7 days. 14 capsule 10/05/19 25 025 Active Problems Problem Noted Date Diagnosed Date Right flank pain 10/05/2024 UTI symptoms 10/05/2024 Assessment & Plan (10/05/2024 4:05 PM EST): I advised to drink plenty of water I advised not to hold the urine UA and culture ordered today Macrobid will be prescribed Patient will be contacted with results Osteoarthritis of right glenohumeral joint 07/02 Assessment & Plan (07/02/2024 4:04 PM EDT): Xray demonstrate R glenohumeral OA with spurring versus loose body at glenoid. - continue supportive care (bracing, heat, patches) - ortho consult for injection Low back pain at multiple sites 06/30/2024 Type 2 diabetes mellitus wit h hyperglycemia, with long-term current use of insulin 06/30/2024 Assessment & Plan (10/05/2024 4:05 PM EST): Diabetes is: controlled - Lab Results Component Value Date HGBA1C 6.7 (A) 10/05/2024 HGBA1C 9.3 (A) 03/15/2024 HGBA1C 8.6 (H) 11/15/2023 - Lab Results Component Value Date MICROALBUR 33.0 07/12/2024 CREATININE 0.88 07/12/2024 -Changes: none - Diabetic eye exam:up to date - Diabetic foot exam:Patient is being follow by podiatry - Continue lifestyle modifications - Continue current medications - Follow up: with endocrinology as scheduled Fibromyalgia 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 06/30/2024 Liver cirrhosis 06/30/2024 Hyperlipidemia 06/30/2024 Elevated liver enzymes 06/30/2024 Dupuytren's disease of palm of left hand 024 Dupuytren's contracture of right hand 06/30/2024 Cubital tunnel syndrome on right 06/30/2024 Constipation 06/30/2024 Chronic kidney disease, stage 3 06/30/2024 Arthritis of left glenohumeral joint 06/30/2024 Acute carpal tunnel syndrome of right wrist 06/13 Wound infection 03/15/2024 GERD (gastroesophageal reflux disease) Assessment & Plan (03/17/2024 2:47 PM EDT): I advise patient to avoid NSAIDs, spicy and acid food, I advise to eat at the same time every day, I advise to elevate the head of the bed and take medications as prescribe Pruritus 07/01/2023 Right hand pain 07/01/2023 Onychomycosis 07/01/2023 Encounter for screening mamm ogram for malignant neoplasm of breast 04/06/2023 Type 2 diabetes mellitus 03/31/2023 Assessment & Plan (03/17/2024 2:48 PM EDT): Continue to follow with endocrinology Assessment & Plan (07/01/2023 3:22 PM EDT): Lab Results Component Value Date HGBA1C 9.0 03/23/2023 Lab Results Component Value Date MICROALBUR 0.5 08/01/2020 MICROALBUR 0.5 08/01/2020 CREATININE 1.00 04/22/2023 - Diabetic eye exam: up to date - Diabetic foot exam: referral today - Continue lifestyle modifications - Continue current medications - I will prescribe continuous glucose monitor, patient is on high doses of insulin and has uncontrolled DM, it is my medical opinion she will be benefit form this device Assessment & Plan (04/07/2023 2:15 PM EDT): - Lab Results Component Value Date HGBA1C 9.0 03/23/2023 - Lab Results Component Value Date MICROALBUR 0.5 08/01/2020 MICROALBUR 0.5 08/01/2020 CREATININE 0.95 09/15/2022 - Diabetic eye exam: up to date - Diabetic foot exam: up to date - Continue lifestyle modifications, extensive diet counseling done today - Continue current medications, I printed her last A1c to report back to endocrinology Chronic left shoulder pain 03/31/2023 Hypertensive disorder 03/31/2023 Assessment & Plan (10/05/2024 4:04 PM EST): I advised: - Aerobic exercise to reduce BP. Initial goal of 30 min walk 3-5x/week. Increase as tolerated. - low-sodium diet (goal: <2g/day) and heart healthy diet such as DASH to reduce BP and prevent ASCVD. - Home BP monitoring 1-2 x day with goal of <140/90. - Seek immediate medical attention for chest pain, palpitations, SOB, syncope, or sudden changes in mental status. - Do not change or discontinue current prescriptions without first consulting health care provider Assessment & Plan (03/17/2024 2:47 PM EDT): - Aerobic exercise to reduce BP. Initial goal of 30 min walk 3-5x/week. Increase as tolerated. - low-sodium diet (goal: <2g/day) and heart healthy diet such as DASH to reduce BP and prevent ASCVD. - Home BP monitoring 1-2 x day with goal of <140/90. - Seek immediate medical attention for chest pain, palpitations, SOB, syncope, or sudden changes in mental status. - Do not change or discontinue current prescriptions without first consulting health care provider Assessment & Plan (04/07/2023 2:16 PM EDT): - Aerobic exercise to reduce BP. Initial goal of 30 min walk 3-5x/week. Increase as tolerated. - low-sodium diet (goal: <2g/day) and heart healthy diet such as DASH to reduce BP and prevent ASCVD. - Home BP monitoring 1-2 x day with goal of <140/90. - Seek immediate medical attention for chest pain, palpitations, SOB, syncope, or sudden changes in mental status. - Do not change or discontinue current prescriptions without first consulting health care provider Encounters Date Type Department Care Team Description 10/06/2024 Orders Only GENERIC EXTERNAL DATA DEPARTMENT Provider, Generic External Data 10/05/2024 1:45 PM EST Office Visit [facility] [address] [place] [address] Renetta Gómez MD Primary hypertension (Primary Dx); Type 2 diabetes mellitus with hyperglycemia, with long-term current use of insulin (CMS/HCC); Right flank pain; UTI symptoms 10/05/2024 Travel 09/25/2024 Patient Outreach [facility] [address] [place] [phone] Renetta Gómez MD Pre-visit Planning (SDOH screening negative and tobacco screening negative) 08/04/2024 Refill [facility] [address] [place] [address] [phone] Renetta Gómez MD Type 2 diabetes mellitus with hyperglycemia (CMS/HCC); Pruritus; residential (current) use of insulin (CMS/HCC); Gastroesophageal reflux disease, unspecified whether esophagitis present; Type 2 diabetes mellitus with diabetic polyneuropathy ([facility]/HCC) 07/29/2024 Refill [facility] [address] [place] [address] [phone] Renetta Gómez MD Pruritus 07/24/2024 10:35 AM EST Nurse Only [address] [phone] Madisyn Ontiveros LPN Encounter for immunization (Primary Dx) 07/24/2024 Travel 07/24/[address] [phone] Renetta Gómez MD telephone call from Last 3 Months Immunizations Name Administration Dates Next Due Hep A, Adult 03/02/2023,08/18/2022 Hep B, adult 03/02/2023,10/06/2022,08/18/2022 Influenza Injectable Quadriv alant Preservative Free IIV4 MDCK 08/23/2023 Influenza injectable quadriv alent IIV4 with preservative 05/26/2019 Influenza injectable quadriv alent preservative free 08/04/2022,07/15/2021,08/01/2020 Influenza, seasonal, injecta ble, preservative free 07/24/2024 Pneumococcal Conjugate PCV 20 03/15/2024 Tdap 12/09/2023 Zoster, Recombinant 09/10/2021,07/10/2021 Family History Medical History Relation Name Comments Hypertension Father Breast cancer Father's Sister Diabetes Mother Hypertension Mother Colon cancer Mother's Brother Relation Name Status Comments Father Father's Sister Mother Mother's Brother Social History Tobacco Use Types Packs/Day Years Used Date Smoking Tobacco: Never Passive Smoke Exposure: Never Smokeless Tobacco: Never Tobacco Cessation:Counseling Given: Not Answered Alcohol Use Standard Drinks/Week Comments Never 0 [...] Orientation Straight 07/13/2022 10 :35 AM EDT Last Filed Vital Signs Vital Sign Reading Time Taken Comments Blood Pressure 106/68 10/05/2024 1:25 PM EST Pulse 69 10/05/2024 1:25 PM EST Temperature 35.9 ??C (96.7 ??F) 10/05/2024 1:25 PM ES T Respiratory Rate 20 10/05/2024 1:25 PM EST Oxygen Saturation 95% 10/05/2024 1:25 PM EST Inhaled Oxygen Concentration - - Weight 74.5 kg (164 lb 3.2 oz) 10/05/2024 1:25 P M EST Height 162.6 cm (5' 4 ) 10/05/2024 1:25 PM EST Body Mass Index 28.18 10/05/2024 1:25 PM EST Plan of Treatment Upcoming Encounters Date Type Department Care Team (Late st Contact Info) Description 11/30/2024 1:30 PM EDT Office Visit [facility] [address] [place], [place] [phone] Rj, Betina, OD [address] [place] [address] Health Maintenance Due Date Last Done Comments CT Colonography 1970 FIT DNA/Cologuard 1970 FIT 1970 FOBT 1970 Sigmoidoscopy 1970 Diabetes: Foot Exam 1980 Alcohol/Substance Use Screening 1982 Pap Smear 05/08/2023 05/08/2020 Depression Screening 04/06/2024 04/06/2023, 04/06/20 COVID-19 Vaccine ( season) 2024 08/04/2022, 08/29/2021, 01/22/2021, Additional history exists Diabetes: Hemoglobin A1C 04/04/2025 025, 03/15/2024, 11/15/2023, Additional history exists Cervical Cancer Screening 05/08/2025 HPV/Cotest 05/08/2025 05/08/2020, 02/10/2019 Mammogram 05/12/2025 05/12/2024, 04/14, 12/30/2020, Additional history exists Eye Exam 06/02/2025 06/02/2024, 05/15, 06/02/2024, Additional history exists Diabetes: Urine Protein Screening 07/12/2025 07/12/2024, 07/02/2023, 12/06/2020, Additional history exists Lipid Panel 07/12/2025 07/12/2024, 08/, 08/04/2022, Additional history exists SDOH Screening 09/25/2025 09/25/2024 Tobacco Screening 10/05/2025 10/05/2024 Colonoscopy 09/15/2027 Colorectal Cancer Screening 09/15/2027 DTaP/Tdap/Td Vaccines (2 - Td or Tdap) 12/08/2033 12/09/2023 RSV Patients and Patients Aged 60 years or older (1 - 1-dose 75+ series) 2045 Zoster Vaccines Completed 09/10/2021, 07/10/2021 Hepatitis C Screening Completed 08/11/2022, 021 Hepatitis A Vaccines Completed 03/02/2023, 08/18/20 Hepatitis B Vaccines Completed 03/02/2023, 10/06/2022, 08/18/2022 HIV Screening Completed 07/02/2023 Pneumococcal Vaccine: 50+ Years Completed 03/15/2024 Influenza Vaccine Completed 07/24/2024, , 08/04/2022, Additional history exists HIB Vaccines Aged Out No longer eligi ble based on patient's age to complete this topic HPV Vaccines Aged Out No longer eligi ble based on patient's age to complete this topic IPV Vaccines Aged Out No longer eligi ble based on patient's age to complete this topic Meningococcal Vaccine Aged Out No consuelo vanessa eligible based on patient's age to complete this topic RSV under 20 months Aged Out No longe r eligible based on patient's age to complete this topic Rotavirus Vaccines Aged Out No longer eligible based on patient's age to complete this topic Procedures Procedure Name Priority Date/Time Associated Diagnosis Comments GLUCOSE, WHOLE BLOOD Routine 10/06/2024 1:59 PM EST POCT URINALYSIS DIPSTICK Routine 10/05/2024 2:08 PM EST UTI symptoms CULTURE, URINE, ROUTINE Routine 10/05/2024 1:54 PM EST UTI symptoms POCT GLYCATED HEMOGLOBIN, TOTAL Routine 10/05/2024 1:27 PM EST Type 2 diabetes mellitus with hyperglycemia, with long-term current use of insulin ([facility]) POCT GLUCOSE Routine 10/05/2024 1:26 PM EST Type 2 diabetes mellitus with hyperglycemia, with long-term current use of insulin ([facility]) LIPID PANEL, STANDARD Routine 07/12/2024 10:54 AM EDT ALBUMIN, RANDOM URINE W/CREATININE Routine 07/12/2024 10:52 AM EDT BI MAMMOGRAM SCREENING TOMOSYNTHESIS BILATERAL Routine 05/12/2024 10:15 AM EDT Encounter for screening mammogram for malignant neoplasm of breast HIV ANTIBODY/ANTIGEN ([facility]) Routine 07/02/2023 8:37 AM EDT ZZZ HISTORICAL HEPATITIS A,B,C PROFILE Routine 08/11/2022 11:00 AM EST ZZZ HISTORICAL HPV DNA, HIGH RISK, CERVICAL Routine 05/08/2020 3:09 PM EDT THINPREP IMAGING SYSTEM PAP Routine 05/08/2020 3:09 PM EDT from Last 3 Months or Most Recently Relevant to Health Maintenance Results * Glucose, Whole Blood (10/06/2024 1:59 PM EST) Glucose, Whole Blood 76 60 - 115 mg/dL [facility] Comment:METER #: [id number] Testing performed in the Endocrinology Department [address] , [address], [place]. 10/06/2024 1:59 PM EST 10/06/2024 2:13 PM EST us Generic External Data Provider LAB BLOOD ORDERAB LES Final Result [facility] [address] [place] [phone] * POCT Urinalysis (10/05/2024 2:08 PM EST) Color, UA [place] Clarity, UA Turbid Glucose, UA Negative Bilirubin, UA Trace Comment:SMALL Ketones, UA Negative Spec Grav, UA 1.030 Blood, UA Negative Negative, None Detected pH, UA 5.0 Protein, UA Trace Comment:30MG Urobilinogen, UA 1.0 Leukocytes, UA Negative Negative, Rare, Trace Nitrite, UA Negative Negative, None Detected Appearance, UA CLOUDY QC Media Lot # [id number] Lot# Expiration Date Urine 10/05/2024 2:08 PM EST Renetta Pedro MD POINT OF CARE TEST EN TER/EDIT ORDERABLES Final Result * Culture, Urine, Routine (10/05/2024 1:54 PM EST) Urine Urine specimen obtained by clean catch procedure / Unknown 10/05/2024 1:54 PM EST 10/05/2024 5:02 PM EST Comment:UACC Narrative [facility] - 10/07/2024 8:59 AM EST Urine Culture No growth. Specimen Source: Urine clean catch Renetta Pedro MD LAB MICROBIOLOGY - NERIL ORDERABLES Final Result [facility] [address] [place] [phone] * (ABNORMAL) POCT HGB A1C (10/05/2024 1:27 PM EST) Hemoglobin A1C 6.7(A) 4.0 - 6.0 % QC Media Lot # [id number] Lot# Expiration Date Blood 10/05/2024 1:27 PM EST us Renetta Pedro MD POINT OF CARE TEST EN TER/EDIT ORDERABLES Final Result * POCT Glucose (10/05/2024 1:26 PM EST) Glucose Blood, POC 129 60 - 200 mg/dL QC Media Lot # [id number] Lot# Expiration Date [id number] Blood Capillary blood specimen / Unknown 10/05/2024 1:26 PM EST us Renetta Pedro MD POINT OF CARE TEST EN TER/EDIT ORDERABLES Final Result * (ABNORMAL) Lipid Panel, Standard (07/12/2024 10:54 AM EDT) Triglycerides 170(H) <150 mg/dL [facility] Comment:Desirable Triglyceri de: less than 150 mg/dLBorderline High Triglyceride 150-199 mg/dLHigh Triglyceride: 200-499 mg/dLVery High Triglyceride: greater than or equal to 5OO mg/dL Cholesterol 179 <200 mg/dL [facility] Comment:Desirable Cholestero l: less than 200 mg/dLBorderline High Cholesterol: 200-239 mg/dLHigh Cholesterol: greater than 239 mg/dL LDL Cholesterol Calculated 109(H) <100 mg/dL [facility] Comment:Desirable LDL: less than 100 mg/dLNear Optimal/Above Optimal LDL: 110- 129 mg/dLBorderline High LDL: 130-159 mg/dLHigh LDL: 160-189 mg/dLVery High LDL: greater than or equal to 190 mg/dL HDL Cholesterol 36(L) >40 mg/dL [facility] Comment:Desirable HDL: great er than 40 mg/dL Note: This HDL assay may give artificially low results in patients with liver disease. 07/12/2024 10:5 4 AM EDT 07/12/2024 10:54 AM EDT us Generic External Data Provider LAB BLOOD ORDERAB LES Final Result [facility] [address] [place] [phone] * Albumin, Random Urine W/Creatinine (07/12/2024 10:52 AM EDT) Creatinine, Urine 269.94 mg/dL [facility] Microalbumin Urine 33.0 mg/L [facility] Microalbum Creatinine Ratio Ur 12.2 <30 ug/mg cr [facility] Comment:Albumin/Creatinine R atio Reference Ranges: Normal: < 30 ug/mg creatinine Microalbuminuria: 30 - 300 ug/mg creatinineClinical Albuminuria: > 300 ug/mg creatinine 07/12/2024 10:5 2 AM EDT 07/12/2024 11:37 AM EDT us Generic External Data Provider LAB URINE ORDERAB LES Final Result Performing Organization Address City/State/[facility] Co de Phone Number [facility] [address] [place] [address] [phone] * BI Mammogram Screening Tomosynthesis Bilateral (05/12/2024 10:15 AM EDT) Anatomical Region Laterality Modality Breast Bilateral Mammography 05/12/2024 10:1 5 AM EDT Narrative 06/02/2024 10:40 PM EDT ? [facility] ? [address] ?[place] [address] ? Mammography Report ? Signed ? Patient: Chasity David,Renata ?MR#: [id number] ?? [id number] ? : 1970 ?Acct:[id number] ? Age/Sex: 54 / F ?ADM Date: 08/30/24 ? Loc: HO.MAMMO ? Attending Dr: Renetta Pedro MD ? Ordering Physician: Renetta Gómez MD ?Results: ?? 1Negative ? Date of Service: 05/12/24 ?Follow Up: 1 Year From Orig ?? inal Mammogram ? Procedure(s): MM tomosynthesis screening BI ?? Accession Number(s): [id number] ? cc: Renetta Gómez MD ? EXAMINATION: ?? MM SCREENING DIGITAL BREAST TOMOSYNTHESIS, BILATERAL ? CLINICAL INFORMATION: ? Screening. Asymptomatic. ? COMPARISON: ?? Mammography: Comparison is made with available priors ? TECHNIQUE: ?? Digital breast tomosynthesis is performed in both the craniocaudal and ?? mediolateral oblique views along with computer-aided detection (CAD). ? Synthesized 2D images are generated from the tomosynthesis. ? FINDINGS: ?? There are scattered areas of fibroglandular density (ACR BI-RADS breast ?? composition Category b). ? There are no significant masses, abnormal calcifications, or other ?? abnormalities. ? MM/MM tomosynthesis screening BI ?? IMPRESSION: ?? No mammographic evidence of malignancy. ? ASSESSMENT: ? BI-RADS BI-RADS 1 - Negative ? RECOMMENDATION: ?? Routine annual mammography screening. ? 1 year F/U ? This examination should not preclude the clinical evaluation of a ?? suspicious palpable abnormality. ? This patient's information was entered into a reminder system with a ?? target due date for their next mammogram. ? Electronically signed by: ??Beth Milian DO ??06/02/2024 10:37 PM EDT ?? RP ? Dictated By: ?Beth Milian DO ? Signed By: ?<Electronically signed by Beth Milian, DO in OV> ? 06/02/247 ? DD/ 1015 ? TD/TT: 05/12/24 1030 ? Vest Busheler: ? Procedure Note Ricki, Image - 06/02/2024 [facility] [facility] [address] [place] [address] Mammography Report Signed Patient: Julia Gusman#: [id number] : 1970Acct:[id number] Age/Sex: 54 / FADM Date: 05/12/24 Loc: HO.MAMMO Attending Dr: Renetta Pedro MD Ordering Physician: Renetta Gómez MDResults: 1Negative Date of Service: 05/12/24Follow Up: 1 Year From Orig inal Mammogram Procedure(s): MM tomosynthesis screening BI Accession Number(s): [id number] cc: Renetta Gómez MD EXAMINATION: MM SCREENING DIGITAL BREAST TOMOSYNTHESIS, BILATERAL CLINICAL INFORMATION: Screening. Asymptomatic. COMPARISON: Mammography: Comparison is made with available priors TECHNIQUE: Digital breast tomosynthesis is performed in both the craniocaudal and mediolateral oblique views along with computer-aided detection (CAD). Synthesized 2D images are generated from the tomosynthesis. FINDINGS: There are scattered areas of fibroglandular density (ACR BI-RADS breast composition Category b). There are no significant masses, abnormal calcifications, or other abnormalities. MM/MM tomosynthesis screening BI IMPRESSION: No mammographic evidence of malignancy. ASSESSMENT: BI-RADS BI-RADS 1 - Negative RECOMMENDATION: Routine annual mammography screening. 1 year F/U This examination should not preclude the clinical evaluation of a suspicious palpable abnormality. This patient's information was entered into a reminder system with a target due date for their next mammogram. Electronically signed by: Beth Milian DO 06/02/2024 10:37 PM EDT Dictated By: Beth Milian DO Signed By: <Electronically signed by Beth Milian DO in OV> 06/02/24 0347 DD/ 1015 TD/TT: 05/12/24 1030 Vest Busheler: Renetta Pedro MD IMG BI PROCEDURES Nael aftab Result - Final * HIV Ab/Ag (DAT DPMuna) (07/02/2023 8:37 AM EDT) HIV AB/AG Nonreactive Nonreactive [facility] Comment:HIV-1 p24 Ag and/or HIV-1/HIV-2 Ab not detected.A test result that is nonreactive does not exclude thepossibility of exposure to or infection with HIV-1 and/orHIV-2. Nonreactive results in this assay for individualswith prior exposure to HIV-1 and/or HIV-2 may be due toantigen and antibody levels that are below the limit ofdetection of this assay.The [employer] HIV Ag/Ab Combo assay result andsupplemental assay results should be interpreted inconjunction with the patient's clinical presentation,history and other laboratory results. If the results areinconsistent with clinical evidence, additional testing issuggested to confirm the result. 07/02/2023 8:37 AM EDT 07/02/2023 11:24 AM EDT us Renetta Pedro MD LAB BLOOD ORDERABLES Final Result [facility] [address] [place] [phone] * Hepatitis A,B,C Profile (08/11/2022 11:00 AM EST) Hepatitis B Core Antibody Nonreactive Nonreactive [facility] Hepatitis B Surface Antibody NONREACTIVE Nonreactive [facility] Comment:Nonreactive: < 8.00 mIU/mL Hepatitis B Surface Antigen Negative Negative [facility] Hepatitis C Antibody Nonreactive Nonreactive [facility] Comment: Antibodies to HCV not detected; does not exclude early acute HCV infection. 08/11/2022 11:0 0 AM EST Jacobo Sánchez MD HISTORICAL/NON ORDERABLE LABS Final Result [facility] * HPV DNA, HIGH RISK, CERVICAL (05/08/2020 3:09 PM EDT) HPV DNA, HIGH RISK, CERVICAL Not Detected NOT DETECTED [facility] Comment: Not Detected ?? High Risk HPV types (16,18,31,33,35,39,45,51,52, 56,58,59,66,68) were not detected. Other HPV types which cause anogenital lesions may be present. The significance of the other types of HPV in malignant processes has not been established. ?? Methodology: Real Time PCR ? 05/08/2020 3:09 PM EDT Renetta Pedro MD HISTORICAL/NON ORDERA BLE LABS Final Result [facility] [address] [place] [address], * THINPREP TIS PAP (05/08/2020 3:09 PM EDT) Pathologist [facility] Clinical Information: SEE COMMENT [facility] Comment:None given COMMENT SEE COMMENT [facility] Comment: EXPLANATORY NOTE: ? The Pap is a screening test for cervical cancer. It is ?? not a diagnostic test and is subject to false negative ?? and false positive results. It is most reliable when a ?? satisfactory sample, regularly obtained, is submitted ?? with relevant clinical findings and history, and when ?? the Pap result is evaluated along with historic and ?? current clinical information. ?? COMMENT: SEE COMMENT [facility] Comment: This Pap test has been evaluated with computer assisted technology. Vehicle Check In Clerk: SEE COMMENT [facility] Comment: LT, CT(ASCP) CT screening location: [address] ??[id number] Infection SEE COMMENT [facility] Comment: Shift in vaginal zeina suggestive of bacterial vaginosis. Interpretation/Resu lt: SEE COMMENT [facility] Comment:Negative for intraep ithelial lesion or malignancy. LMP: SEE COMMENT [facility] Comment:NONE GIVEN Prev. BX: NONE GIVEN [facility] Prev. PAP: SEE COMMENT [facility] Comment:NONE GIVEN SOURCE: SEE COMMENT [facility] Comment:None given Statement Of Adequacy: SEE COMMENT [facility] Comment: Satisfactory for evaluation. Endocervical/transformation zone component present. Age and/or menstrual status not provided 05/08/2020 3:09 PM EDT Renetta Pedro MD LAB PATHOLOGY ORDERAB LES Final Result [facility] [address] from Last 3 Months or Most Recently Relevant to Health Maintenance Insurance [facility] C3 Care Teams Slate Picker Relationship Specialty Start Date End Date Renetta Gómez MD [address] [place] [phone] PCP - General Family Medicine 12/29/18
--- OUTSIDE RECORDS SUMMARY | 2024-10-17 11:37 | XMS_ITS | Encounter Summary ---
Author Organization [employer] Address [address] [facility] [address] [place] [address] Care Team Providers Care Liquified Natural Gas Technician Name Role Phone Renetta Gómez MD Primary Care Provide r Reason for Visit * Reason Onset Date Comments PT1 03/21/2024 Encounter Details Date Type Department Care Team ([facility] st Contact Info) Description 03/21/[address] [facility] MEDICINE [address] [place], [place] [phone] Renetta Gómez MD [address] [place] [address] PT1 Social History Tobacco Use Types Packs/Day [...] encounter Miscellaneous Notes * Telephone Encounter - Kendall Santo - 03/21/2024 12:35 PM EDT Patient calling requesting PT1 Home Address verified: Y/N: Yes Provider name or facility name: Dr.Allison Bennett Facility Address: [address], [place] Escort needed: Y/N: Yes Do you have a wheelchair: no If yes- Manual or electric: no Visits: 4 Patient calling requesting PT1 Home Address verified: Y/N: Yes Provider name or facility name: Dr.Corina Leon Facility Address: [address], [place] Escort needed: Y/N: Yes Do you have a wheelchair: Y/N: No If yes- Manual or electric: no Visits: 4 Patient calling requesting PT1 Home Address verified: Y/N: Yes Provider name or facility name: Dr. Ele Esparza Facility Address: [address], [place] Escort needed: Y/N: Yes Do you have a wheelchair: Y/N: No If yes- Manual or electric: no Visits: 4 Patient calling requesting PT1 Home Address verified: Y/N: No Provider name or facility name: Dr. Margie Hugo Facility Address: [address], [place] Escort needed: Y/N: Yes Do you have a wheelchair: Y/N: No If yes- Manual or electric: no Visits: 4 * Telephone Encounter - Emily Rodriguez - 03/21/2024 12:28 PM EDT Patient calling requesting PT1 Home Address verified: Y/N: Yes Provider name or facility name: [facility] Facility Address: [address] [facility], Escort needed: Y/N: Yes Do you have a wheelchair: Y/N: No If yes- Manual or electric: NO Visits: ALL FUTURE APPTS documented in this encounter Plan of Treatment Upcoming Encounters Date Type Department Care Team (Late st Contact Info) Description 11/30/2024 1:30 PM EDT Office Visit [facility] OPTOMETRY [address] [place] [address] Betina De La Rosa, OD [address] [place] [address] documented as of this encounter Visit Diagnoses Not on filedocumented in this encounter Additional Health Concerns Assessment Noted Time PHQ-9 Depression Total Score: 0 04/06/20 23 10:11 AM EDT documented as of this encounter Care Teams Liquified Natural Gas Technician Relationship Specialty Start Date End Date Renetta Gómez MD [address] [place] [address] PCP - General Family Medicine 12/29/18 documented as of this encounter
--- OUTSIDE RECORDS SUMMARY | 2024-10-17 11:37 | XMS_ITS | Encounter Summary ---
Author Organization [employer] Address [address] [facility] [address] [place] [address] Care Team Providers Care Ice Cream Man Name Role Phone Renetta Gómez MD Primary Care Provide r Reason for Visit * Reason Comments Med Refill Encounter Details Date Type Department Care Team (Late st Contact Info) Description 07/29/[address] [facility] MEDICINE [address] [place], [place] [phone] Renetta Gómez MD [address] [place], [place] [phone] Pruritus Social History Tobacco Use Types Packs/Day Years [...] Description 11/30/2024 1:30 PM EDT Office Visit [facility] OPTOMETRY [address] [place], [place] [phone] Betina De La Rosa, OD [address] [place] [address] documented as of this encounter Visit Diagnoses Diagnosis Pruritus Unspecified pruritic disorder documented in this encounter Additional Health Concerns Assessment Noted Time PHQ-9 Depression Total Score: 0 04/06/20 23 10:11 AM EDT documented as of this encounter Care Teams Ice Cream Man Relationship Specialty Start Date End Date Renetta Gómez MD [address] [place] [address] PCP - General Family Medicine 12/29/18 documented as of this encounter
--- OUTSIDE RECORDS SUMMARY | 2024-10-17 11:37 | XMS_ITS | Encounter Summary ---
Author Organization [employer] Address [address] [facility] [address] [place] [address] Care Team Providers Care Shipping Processor Name Role Phone Renetta Gómez MD Primary Care Provide r Encounter Details Date Type Department Care Team (Latest Contact Info) Description 10/05/2024 Travel Social History Tobacco Use Types Packs/Day Years [...] Description 11/30/2024 1:30 PM EDT Office Visit [facility] OPTOMETRY [address] [place] [address] Rj, Betina, OD [address] [place] [address] documented as of this encounter Visit Diagnoses Not on filedocumented in this encounter Additional Health Concerns Assessment Noted Time PHQ-9 Depression Total Score: 0 04/06/20 23 10:11 AM EDT documented as of this encounter Care Teams Shipping Processor Relationship Specialty Start Date End Date Renetta Gómez MD [address] [place], [place] [phone] PCP - General Family Medicine 12/29/18 documented as of this encounter
--- OUTSIDE RECORDS SUMMARY | 2024-10-17 11:37 | XMS_ITS | Clinical Summary ---
Author Organization [address] [facility] Address [address] [place] [address] Phone Care Team Providers Care Tractor Distributor Name Role Phone Renetta Gómez MD Primary Care Provide r Allergies Active Allergy Reactions Criticality Noted Date Comments Acetaminophen-Codeine 06/13/2024 Shellfish Derived 06/13/2024 Medications Medication Sig Dispensed Refills Start Date End Date Status clotrimazole (LOTRIMIN) 1 % cream Apply to skin and toenails daily for 12 weeks 06/13/2024 Active ciclopirox (LOPROX) 0.77 % gel Apply topically 2 (two) times a day. 45 g 10/16/2024 01/14/2025 Active Active Problems Problem Noted Date Diagnosed Date Onychomycosis 06/13/2024 Pruritus 06/13/2024 Right hand pain 06/13/2024 T2DM (type 2 diabetes mellitus) 06/13/2024 Encounters Date Type Department Care Team Description 10/16/2024 1:45 PM EST Office Visit Orthopedic Surgery [facility] [address] [facility] [address] [place] [phone] Ed Cowart, DPM Dermatophytosis of nail (Primary Dx); Diabetic mononeuropathy simplex (CMS/HCC); Acquired hammer toe of right foot; Hammer toe of left foot; Type II diabetes mellitus with peripheral circulatory disorder (CMS/HCC) from Last 3 Months Social History Tobacco Use Types Packs/Day Years Used Date Smoking Tobacco: Never Assessed Sex and Gender Information Value Date Recorded Sex Assigned at Not on file Gender Identity Not on file Sexual Orientation Not on file Job Start Date Occupation Industry Not on file Not on file Not on file Last Filed Vital Signs Vital Sign Reading Time Taken Comments Blood Pressure - - Pulse - - Temperature - - Respiratory Rate - - Oxygen Saturation - - Inhaled Oxygen Concentration - - Weight 78.5 kg (173 lb) 10/16/2024 1:27 PM EST Height 162.6 cm (5' 4.02 ) 10/16/2024 1:27 PM ES T Body Mass Index 29.68 10/16/2024 1:27 PM EST Plan of Treatment Upcoming Encounters Date Type Department Care Team (Late st Contact Info) Description 01/16/2025 1:00 PM EDT Office Visit Orthopedic Surgery - [place] [phone] [phone] Ed Cowart, TE[place] [address] [address] Health Maintenance Due Date Last Done Comments Breast Cancer Screening 1970 Diabetes: Annual GFR (Glomerular Filtration Rate) 1970 Diabetes: Annual Foot Exam 1980 Diabetes: Annual Retina Eye Exam 1980 Cervical Cancer Screening: Pap Smear 1991 Colorectal Cancer Screening: Colonoscopy 10/07/2023 HIV Screening 10/07/2023 Hepatitis C Screening 10/07/2023 Social Influencers of Health Screening 10/07/2023 Depression Screening 04/06/2024 04/06/2023 COVID-19 Vaccine ( season) 2024 08/04/2022, 08/29/2021, 01/22/2021, Additional history exists Diabetes: Annual Urine Albumin-Creatinine Ratio (uACR) 07/11/2024 Hypertension/CHF/CAD Annual BMP Blood Test 10/16/2024 Diabetes: Blood Sugar Control Test (HGBA1C) 04/04/2025 10/05/2024 Cholesterol Screening (Lipid Panel) 07/12/2029 07/12/2024 DTaP,Tdap,and Td Vaccines (2 - Td or Tdap) 12/08/2033 12/09/2023 Zoster Vaccines Completed 09/10/2021, 07/10/2021 Hepatitis A Vaccines Completed 03/02/2023, 08/18/20 Hepatitis B Vaccines Completed 03/02/2023, 10/06/2022, 08/18/2022 Pneumococcal Vaccine: Pediatrics (0 to 5 Years) and At-Risk Patients (6 to 64 Years) Completed 03/15/2024 Influenza Vaccine Completed 07/24/2024, , 08/04/2022, Additional history exists HIB Vaccines Aged Out No longer eligi ble based on patient's age to complete this topic HPV Vaccines Aged Out No longer eligi ble based on patient's age to complete this topic IPV Vaccines Aged Out No longer eligi ble based on patient's age to complete this topic MMR Vaccines Aged Out No longer eligi ble based on patient's age to complete this topic Meningococcal ACWY Vaccine Aged Out N o longer eligible based on patient's age to complete this topic RSV Immunization Patients Under 20 months Aged Out No longer eligible based on patient's age to complete this topic Varicella Vaccines Aged Out No longer eligible based on patient's age to complete this topic Care Teams Tractor Distributor Relationship Specialty Start Date End Date Renetta Gómez MD [address] [place] [phone] PCP - General 08/25/23
--- OUTSIDE RECORDS SUMMARY | 2024-10-17 11:37 | XMS_ITS | Encounter Summary ---
Author Organization [employer] Address [address] [facility] [address] [place] [address] Care Team Providers Care Vamp Strap Ironer Name Role Phone Renetta Gómez MD Primary Care Provide r Reason for Visit * Reason Comments Pre-visit Planning SDOH screening negat michelle and tobacco screening negative Encounter Details Date Type Department Care Team ([facility] st Contact Info) Description 09/25/2024 Patient Outreach [facility] MEDICINE [address] [place], [place] [phone] Renetta Gómez MD [address] [place] [address] Pre-visit Planning (SDOH screening negative and tobacco screening negative) Social History Tobacco Use Types Packs/Day Years [...] AM EDT documented as of this encounter Progress Notes * Madhavi Cadet - 09/25/2024 11:17 AM EST CC Madhavi placed successful outbound call to patient for pre-visit planning. Patient name and confirmed. Patient confirms appt date and time, and has transportation. Biggest concern for appointment at this time is none Patient advised to bring to appointment a photo id and insurance card. Appropriate screenings completed in anticipation of appointment. documented in this encounter Plan of Treatment Upcoming Encounters Date Type Department Care Team (Late st Contact Info) Description 11/30/2024 1:30 PM EDT Office Visit [facility] OPTOMETRY [address] [place] [address] Rj, Betina, OD [address] [place] [address] documented as of this encounter Visit Diagnoses Not on filedocumented in this encounter Additional Health Concerns Assessment Noted Time PHQ-9 Depression Total Score: 0 04/06/20 23 10:11 AM EDT documented as of this encounter Care Teams Vamp Strap Ironer Relationship Specialty Start Date End Date Renetta Gómez MD [address] [place] [address] PCP - General Family Medicine 12/29/18 documented as of this encounter
--- OUTSIDE RECORDS SUMMARY | 2024-10-17 11:37 | XMS_ITS | Encounter Summary ---
Author Organization [employer] Address [address] [place] [address] [address] [place] [address] Care Team Providers Care Purification Operator Name Role Phone Renetta Gómez MD Primary Care Provide r Encounter Details Date Type Department Care Team (Late st Contact Info) Description 12/02/2022 Orders Only [facility] [address] [place] [address] Lizbeth Navarro LPN Social History Tobacco Use [...] Description 11/30/2024 1:30 PM EDT Office Visit [facility] OPTOMETRY [address] [place] [address] Betina De La Rosa, OD [address] [place] [address] documented as of this encounter Visit Diagnoses Not on filedocumented in this encounter Care Teams Purification Operator Relationship Specialty Start Date End Date Renetta Gómez MD [address] [place] [address] PCP - General Family Medicine 12/29/18 documented as of this encounter
--- OUTSIDE RECORDS SUMMARY | 2024-10-17 11:37 | XMS_ITS | Encounter Summary ---
Author Organization [employer] Address [address] [facility] 7t [place] [address] Care Team Providers Care Clinical Project Manager Name Role Phone Renetta Gómez MD Primary Care Provide r Encounter Details Date Type Department Care Team (Late st Contact Info) Description 10/05/2024 1:45 PM EST Office Visit [facility] MED[facility] [address] [place], [place] [phone] Renetta Gómez MD [address] [place], [place] [phone] Primary hypertension (Primary Dx); Type 2 diabetes mellitus with hyperglycemia, with long-term current use of insulin (CMS/HCC); Right flank pain; UTI symptoms Social History Tobacco Use Types Packs/Day Years [...] AM EDT documented as of this encounter Last Filed [...] Mass Index 28.18 10/05/2024 1:25 PM EST documented in this encounter Progress Notes * Renetta Pedro MD - 10/05/2024 1:45 PM EST SUBJECTIVE: Renata David is a 54 y.o. year old female who presents for Chronic Disease Management . Acute Concerns: Patient reports she has been having right flank pain, urinary frequency, dysuria, urine malodor Social History Social History Narrative Not on file Patient Active Problem List Diagnosis Type 2 diabetes mellitus (CMS/HCC) Chronic left shoulder pain Hypertensive disorder Encounter for screening mammogram for malignant neoplasm of breast Pruritus Right hand pain Onychomycosis Wound infection GERD (gastroesophageal reflux disease) Low back pain at multiple sites Type 2 diabetes mellitus with hyperglycemia, with long-term current use of insulin (CMS/HCC) Fibromyalgia prison current use of insulin (CMS/HCC) Liver cirrhosis (CMS/HCC) Hyperlipidemia Elevated liver enzymes Dupuytren's disease of palm of left hand Dupuytren's contracture of right hand Cubital tunnel syndrome on right Constipation Chronic kidney disease, stage 3 (CMS/HCC) Arthritis of left glenohumeral joint Acute carpal tunnel syndrome of right wrist Osteoarthritis of right glenohumeral joint Right flank pain UTI symptoms Family History Problem Relation Name Age of Onset Hypertension Mother Diabetes Mother Hypertension Father 59 Colon cancer Mother's Brother Breast cancer Father's Sister 68 Review of Systems Constitutional: Negative. HENT: Negative. Respiratory: Negative. Cardiovascular: Negative. Genitourinary: Positive for dysuria, flank pain, frequency and urgency. Negative for decreased urine volume, difficulty urinating, dyspareunia, enuresis, genital sores, hematuria, menstrual problem, pelvic pain, vaginal bleeding, vaginal discharge and vaginal pain. OBJECTIVE: Vitals: 10/05/24 1325 BP: 106/68 BP Location: Left arm Patient Position: Sitting BP Cuff Size: Adult Pulse: 69 Resp: 20 Temp: 96.7 ??F (35.9 ??C) TempSrc: Oral SpO2: 95% Weight: 164 lb 3.2 oz (74.5 kg) Height: 5' 4 (1.626 m) Physical Exam Constitutional: Appearance: Normal appearance. Cardiovascular: Rate and Rhythm: Normal rate and regular rhythm. Pulmonary: Effort: Pulmonary effort is normal. Breath sounds: Normal breath sounds. Abdominal: General: Abdomen is flat. Palpations: Abdomen is soft. Tenderness: There is right CVA tenderness. There is no left CVA tenderness. Musculoskeletal: Right lower leg: No edema. Left lower leg: No edema. Neurological: Mental Status: She is alert. Follow Up: No follow-ups on file. Current Outpatient Medications on File Prior to Visit Medication Sig Dispense Refill albuterol 108 (90 Base) MCG/ACT inhaler Inhale 2 puffs every 6 (six) hours if needed for wheezing. 18 g 11 atorvastatin (Lipitor) 20 MG tablet Take 1 tablet (20 mg) by mouth Once per day. 90 tablet 3 bacitracin 500 UNIT/GM ointment APPLY TO THE AFFECTED AREA two (2) times a day Baqsimi Two Pack 3 MG/DOSE nasal powder SPRAY ONCE IN 1 NOSE two (2) times a day NEEDED FOR low glucose. USE 3 (THREE) TIMES A DAY FOR NAUSEA OR FOR VOMITING. maximum 6mg/day Bisacodyl EC 5 MG EC tablet TAKE 2 TABLETS BY MOUTH ONCE DAILY AT BEDTIME busPIRone (Buspar) 7.5 MG tablet TAKE 1 TABLET BY MOUTH 3 (THREE) TIMES A DAY. TAKE 1/2 HOUR BEFOREMEALS clonazePAM (KlonoPIN) 0.5 MG tablet TAKE 1 TABLET BY MOUTH two (2) times a day NEEDED clotrimazole (Lotrimin) 1 % cream APPLY TO THE AFFECTED AREA TOPICALLY ONCE DAILY Continuous Blood Gluc Head Track Coach (FreeStyle Oren 2 [place]) device Scan sensor every 8 hours 1 each 0 Continuous Blood Gluc Sensor (FreeStyle Oren 2 Sensor) misc Apply 1 sensor every 14 days 2 each 0 docusate sodium (Colace) 100 MG capsule TAKE TWO CAPSULES BY MOUTH ONCE DAILY AT BEDTIME EPINEPHrine (Epipen) 0.3 MG/0.3ML injection syringe Inject 0.3 mL (0.3 mg) as directed 1 (one) timeif needed for anaphylaxis. Inject into upper leg. Call 911 after use. 2 each 0 escitalopram (Lexapro) 20 MG tablet Take 20 mg by mouth in the morning. fluticasone (Flonase) 50 MCG/ACT nasal spray Administer 2 sprays into each nostril Once per day. Shake gently. Before first use, prime pump. After use, clean tip and replace cap. 16 g 2 FREESTYLE LITE test strip USE TO TEST FINGER STICK BLOOD SUGAR two (2) times a day 100 strip 1 gabapentin (Neurontin) 300 MG capsule Take 1 capsule by mouth once daily 30 capsule 11 hydrOXYzine HCl (Atarax) 25 MG tablet TAKE 1 TABLET BY MOUTH two (2) times a day NEEDED 60 tablet 2 insulin degludec (Tresiba FlexTouch) 200 UNIT/ML injection INJECT 74 UNITS SUBCUTANEOUSLY ONCE DAILY 18 mL 3 insulin lispro (HumaLOG) 100 UNIT/ML injection Inject 24 Units under the skin with breakfast, with lunch, and with evening meal. 4 mL 2 Ketostix strip USE 3 (THREE) TIMES A DAY NEEDED FOR glucose >250, FOR NAUSEA AND FOR VOMITING levothyroxine (Synthroid, Levoxyl) 25 MCG tablet TAKE 1 TABLET BY MOUTH ONCE DAILY BEFORE [id number] tablet 3 lidocaine (Lidoderm) 5 % patch APPLY 1 PATCH TOPICALLY ONCE DAILY. remove patch after 12 hours. leave on most painful area lisinopril 10 MG tablet TAKE 1 TABLET BY MOUTH ONCE DAILY 90 tablet 3 Melatonin Maximum Strength 5 MG tablet TAKE 2 TABLETS (10 mg) BY MOUTH EVERY NIGHT AT BEDTIME naproxen (Naprosyn) 500 MG tablet TAKE 1 TABLET BY MOUTH two (2) times a day omeprazole (PriLOSEC) [address] capsule Take 1 capsule (40 mg) by mouth before breakfast. Do not crush or chew. 90 capsule 0 Ozempic, 1 MG/DOSE, 4 MG/3ML solution pen-injector INJECT 1mg SUBCUTANEOUSLY EACH WEEK pioglitazone (Actos) 15 MG tablet Take 1 tablet (15 mg) by mouth Once per day. 90 tablet 3 traZODone (Desyrel) 100 MG tablet Take 2 tablets (200 mg) by mouth at bedtime. 60 tablet 1 traZODone (Desyrel) 150 MG tablet Take 150 mg by mouth at bedtime. Trulicity 4.5 MG/0.5ML solution pen-injector INJECT 4.5 mg SUBCUTANEOUSLY EVERY WEEK 2 mL 3 No current facility-administered medications on file prior to visit. Problem List Items Addressed This Visit Type 2 diabetes mellitus with hyperglycemia, with long-term current use of insulin ([facility]) Diabetes is: controlled - Lab Results Component [...] - Follow up: with endocrinology as scheduled Relevant Orders POCT Glucose (Completed) POCT HGB A1C (Completed) Hypertensive disorder - Primary I advised: - Aerobic exercise to reduce BP. Initial goal of 30 min walk 3-5x/week. Increase as tolerated. - low-sodium diet (goal: <2g/day) and heart healthy diet such as DASH to reduce BP and prevent ASCVD. - Home BP monitoring 1-2 x day with goal of <140/90. - Seek immediate medical attention for chest pain, palpitations, SOB, syncope, or sudden changes inmental status. - Do not change or discontinue current prescriptions without first consulting health care provider Right flank pain UTI symptoms I advised to drink plenty of water I advised not to hold the urine UA and culture ordered today Macrobid will be prescribed Patient will be contacted with results Relevant Medications nitrofurantoin, macrocrystal-monohydrate, (Macrobid) 100 MG capsule Other Relevant Orders Culture, Urine, Routine POCT Urinalysis (Completed) documented in this encounter Miscellaneous Notes * Assessment & Plan Note - Renetta Pedro MD - 10/05/2024 4:05 PM EST Associated Problem(s): Type 2 diabetes mellitus with hyperglycemia, with long- term current use of insulin ([facility]) Diabetes is: controlled - Lab Results Component [...] - Follow up: with endocrinology as scheduled * Assessment & Plan Note - Renetta Pedro MD - 10/05/2024 4:05 PM EST Associated Problem(s): UTI symptoms I advised to drink plenty of water I advised not to hold the urine UA and culture ordered today Macrobid will be prescribed Patient will be contacted with results * Assessment & Plan Note - Renetta Pedro MD - 10/05/2024 4:04 PM EST Associated Problem(s): Hypertensive disorder I advised: - Aerobic exercise to reduce BP. Initial goal of 30 min walk 3-5x/week. Increase as tolerated. - low-sodium diet (goal: <2g/day) and heart healthy diet such as DASH to reduce BP and prevent ASCVD. - Home BP monitoring 1-2 x day with goal of <140/90. - Seek immediate medical attention for chest pain, palpitations, SOB, syncope, or sudden changes inmental status. - Do not change or discontinue current prescriptions without first consulting health care provider documented in this encounter Plan of Treatment Upcoming Encounters Date Type Department Care Team (Late st Contact Info) Description 11/30/2024 1:30 PM EDT Office Visit [facility] OPTOMETRY [address] [place], [place] [phone] Betina De La Rosa, OD [address] [place] [address] documented as of this encounter Procedures Procedure Name Priority Date/Time Associated Diagnosis Comments POCT URINALYSIS DIPSTICK Routine 10/05/2024 2:08 PM EST UTI symptoms CULTURE, URINE, ROUTINE Routine 10/05/2024 1:54 PM EST UTI symptoms POCT GLYCATED HEMOGLOBIN, TOTAL Routine 10/05/2024 1:27 PM EST Type 2 diabetes mellitus with hyperglycemia, with long-term current use of insulin ([facility]) POCT GLUCOSE Routine 10/05/2024 1:26 PM EST Type 2 diabetes mellitus with hyperglycemia, with long-term current use of insulin ([facility]) documented in this encounter Results * POCT Urinalysis (10/05/2024 2:08 PM EST) Color, UA Mills Clarity, UA Turbid Glucose, UA Negative Bilirubin, UA Trace Comment:SMALL Ketones, UA Negative Spec Grav, UA 1.030 Blood, UA Negative Negative, None Detected pH, UA 5.0 Protein, UA Trace Comment:30MG Urobilinogen, UA 1.0 Leukocytes, UA Negative Negative, Rare, Trace Nitrite, UA Negative Negative, None Detected Appearance, UA CLOUDY QC Media Lot # [id number] Lot# Expiration Date Urine 10/05/2024 2:08 PM EST Result [facility] Renetta Pedro MD POINT OF CARE TEST EN TER/EDIT ORDERABLES Final Result * Culture, Urine, Routine (10/05/2024 1:54 PM EST) Urine Urine specimen obtained by clean catch procedure / Unknown 10/05/2024 1:54 PM EST 10/05/2024 5:02 PM EST Comment:UACC Narrative [facility] - 10/07/2024 8:59 AM EST Urine Culture No growth. Specimen Source: Urine clean catch Renetta Pedro MD LAB MICROBIOLOGY - NERAL ORDERABLES Final Result [facility] [address] [place] [phone] * (ABNORMAL) POCT HGB A1C (10/05/2024 1:27 PM EST) Hemoglobin A1C 6.7(A) 4.0 - 6.0 % QC Media Lot # [id number] Lot# Expiration Date , Blood 10/05/2024 1:27 PM EST Result [facility] Renetta Pedro MD POINT OF CARE TEST EN TER/EDIT ORDERABLES Final Result * POCT Glucose (10/05/2024 1:26 PM EST) Glucose Blood, POC 129 60 - 200 mg/dL QC Media Lot # [id number] Lot# Expiration Date Blood Capillary blood specimen / Unknown 10/05/2024 1:26 PM EST Renetta Pedro MD POINT OF CARE TEST EN TER/EDIT ORDERABLES Final Result documented in this encounter Visit Diagnoses Diagnosis Primary hypertension- Primary Unspecified essential hypertension Type 2 diabetes mellitus with hyperglycemia, with long-term current use of insulin ([facility]) Right flank pain Abdominal pain, unspecified site UTI symptoms documented in this encounter Additional Health Concerns Assessment Noted Time PHQ-9 Depression Total Score: 0 04/06/20 23 10:11 AM EDT documented as of this encounter Care Teams Clinical Project Manager Relationship Specialty Start Date End Date Renetta Gómez MD [address] [place] [address] PCP - General Family Medicine 12/29/18 documented as of this encounter
--- OUTSIDE RECORDS SUMMARY | 2024-10-17 11:37 | XMS_ITS | Encounter Summary ---
Author Organization [employer] Address [address] [place] [address] 7t [place] [address] Care Team Providers Care Geology Professor Name Role Phone Renetta Gómez MD Primary Care Provide r Reason for Visit * Reason Comments Med Refill Encounter Details Date Type Department Care Team (Late st Contact Info) Description 12/02/2022 Refill [facility] MED & PEDS [address] [place], [place] [phone] Fannie Ceron MD [address] [place] [address] Type 2 diabetes mellitus without complication, unspecified whether nursing home insulin use (CMS/HCC) Social History Tobacco Use Types Packs/Day [...] Description 11/30/2024 1:30 PM EDT Office Visit [facility] OPTOMETRY [address] [place], [place] [phone] Betina De La Rosa, OD [address] [place] [address] documented as of this encounter Visit Diagnoses Diagnosis Type 2 diabetes mellitus without complication, unspecified whether 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
[2024-10-17 12:31] LABS: Anion Gap 11 (12-20); Blood Urea Nitrogen 15 mg/dL (9-16); Calcium 9.5 mg/dL (8.4-10.2); Carbon Dioxide 28 mmol/L (22-29); Chloride 108 mmol/L (96-108); Estimated Glomerular Filt Rate > 60; Glucose Random 185 mg/dL (60-115); Potassium 4.6 mmol/L (3.3-5.1); Sodium 142 mmol/L (135-145)
[2024-10-17 12:48] LABS: Thyroid Stimulating Hormone 1.85 uIU/mL (0.32-4.0)
[2024-10-17 12:53] LABS: Free T4 (Free Thyroxine) 1.09 ng/dL (0.71-1.85)
== END 2024-10-17 10:44 | disposition home or self-care (01) ==
LOC: HO.LAB 10:43
PROVIDERS: Nurse Practitioner Primary Care; PCP Internal Medicine; Visit Provider Nurse Practitioner Adult Health
DX: E03.9 Hypothyroidism, unspecified (principal)
CPT/HCPCS: 36415; 80048; 84439; 84443

== ENCOUNTER 2024-11-29 14:04 | Outpatient (AMB) | payer MEDICAID, SELFPAY ==
[2024-11-29 14:07] VITALS: BMI 28.0
--- NOTE | 2024-11-29 14:07 | A.OFFVIS_ITS ---
Vital Signs 11/29/24 14:07 Height 5 ft 4 in Weight 163 lb BMI 28.0 Handedness Right Intake Visit Reasons: PreOp- Lt Cubital/CTR 12/14/24 AR Allergies seafood Allergy (Severe, Verified 11/29/24 14:07) throat closes codeine [Tylenol-Codeine] Allergy (Intermediate, Verified 11/29/24 14:07) rash HPI HPI PreOp- Lt Cubital/CTR 12/14/24 AR: Details: Patient is a 54-year-old female who presents for preoperative visit for right carpal and cubital tunnel releases. Patient states her symptoms have remained consistent since previous evaluation. Would like to still proceed with surgery. No other acute complaints or concerns at this time. [facility] Medical History Liver cirrhosis Hyperlipidemia Hepatitis C Elevated liver enzymes Hypothyroidism Depression Fibromyalgia Asthma Type 2 diabetes mellitus with diabetic polyneuropathy Type 2 diabetes mellitus with hyperglycemia, with long-term current use of insulin [facility] current use of insulin Chronic kidney disease, stage 3 Surgical History Hx of colonoscopy Hx of hand surgery Hx of biopsy H/O oral surgery Family History Mother Diabetes Asthma Kidney stones HTN (hypertension) Brother Diabetes Father Bloodstream infection Social History Household Members: Spouse Are you a primary child day care center worker to a significant other at home: No Do you presently have visiting nurse or other home services: No Alcohol intake: current Alcohol intake frequency: does not drink Patient Tobacco Use Status: Never used Tobacco Current occupational status: disabled Review of Systems Const All systems reviewed & are unremarkable except as noted in HPI and below Physical Exam Vital Signs: BMI result Body Mass Index 28.0 Const General: cooperative, healthy appearing and no acute distress Orientation/consciousness: patient oriented x3 HEENT Head: Yes normocephalic and Yes atraumatic Eyes EOM: EOMs intact bilaterally Resp Effort & Inspection: normal respiratory effort and able to speak in complete sentences Cardio Jugular venous distension: no JVD Skin General skin exam: turgor normal Rashes: no rashes Neuro General: patient oriented x3 Extrem Other: Evaluation of Right Upper Extremity: The patient is alert, oriented, and in no acute distress Neuro: Median, Ulnar, Radial nerves motor and sensory intact and sensation is normal to the tips of all digits No thenar or intrinsic wasting Good APB muscle belly firing and good finger cross Good finger ABduction & ADduction Vascular: Cap refill brisk ROM: She can make a fist and extend all her digits She can place her hands flat on the table No locking or catching Skin: No lacerations or abrasions. General: No Ecchymosis. No Erythema or evidence of infection. Nerve Conduction Study: Right side only IMPRESSION: 1. This is an abnormal study. 2. There is electrodiagnostic evidence for right moderate-severe median neuropathy at the wrist, consistent with carpal tunnel syndrome. 3. There is no electrodiagnostic evidence for ulnar neuropathy, brachial plexopathy, or cervical radiculopathy. Alissa Pineda MD, JAEL 11/25/23 Psych Appearance: grossly normal Affect: normal affect Attitude: cooperative Assessment & Plan Assessment & Plan (1) Cubital tunnel syndrome on right: Code(s): G56.21 - Lesion of ulnar nerve, right upper limb Category: Medical (2) Carpal tunnel syndrome, right: Code(s): G56.01 - Carpal tunnel syndrome, right upper limb Category: Medical Plan 1. Right cubital tunnel syndrome 2. Right carpal tunnel syndrome Symptoms intermittent, daily, worse at night I educated the patient about the condition. I discussed both operative and nonoperative treatment options. The patient would like to proceed with surgery. The risks and benefits of operative treatment were discussed with the patient and the patient wishes to proceed with surgery. These risks include, but are not limited to, risk of damage to blood vessels, nerves, tendons, infection, recurrence, incomplete relief of preoperative symptoms, persistent pain, possible need for further surgery, and the risks associated with regional blocks and/or anesthesia. Plan is to take the patient to the operating room at some point in the next few weeks for the following procedures: 1. Right cubital tunnel release under general 2. Right carpal tunnel release under general All of the preoperative paperwork including the consent was discussed today. All of the patient's questions were answered in the clinic today. The patient understands that they will be in contact with our surgical forceps fabricator to discuss scheduling their procedure. Patient reports diabetes, last A1c 7.5 Denies blood thinners, asthma, heart issues, lung issues, kidney issues, or current smoking. Coding Level of Care Code Est Pt Level 4 (68988) Diagnoses Cubital tunnel syndrome on right G56.21 Carpal tunnel syndrome, right G56.01
== END 2024-11-29 14:26 | disposition home or self-care (01) ==
LOC: HO.HOS 14:04
PROVIDERS: PCP Internal Medicine
DX: G56.21 Lesion of ulnar nerve, right upper limb (principal); G56.01 Carpal tunnel syndrome, right upper limb
CPT/HCPCS: 99024

== ENCOUNTER → 2024-11-29 14:04 | Outpatient (BNVA) | payer MEDICAID, SELFPAY | PROVIDERS: PCP Internal Medicine | DX: Z01.818 Encounter for other preprocedural examination (principal); G56.21 Lesion of ulnar nerve, right upper limb; G56.01 Carpal tunnel syndrome, right upper limb | CPT/HCPCS: 99212 ==

== ENCOUNTER 2024-12-18 05:45 | Day surgery (SDC) | payer MEDICAID, SELFPAY ==
--- OUTSIDE RECORDS SUMMARY | 2024-10-31 14:33 | XMS_ITS | Encounter Summary ---
Author Organization [employer] Address [address] [facility] 7t [place] [address] Care Team Providers Care Community Service Coordinator Name Role Phone Renetta Gómez MD Primary Care Provide r Reason for Visit * Reason Comments Med Refill Encounter Details Date Type Department Care Team (Late st Contact Info) Description 09/25/2023 Refill [facility] [address] [place], [place] [phone] Renetta Gómez MD [address] [place], [place] [phone] Hypothyroidism, unspecified type Social History Tobacco Use [...] Description 11/30/2024 1:30 PM EDT Office Visit [facility] OPTOMETRY [address] [place] [address] Betina De La Rosa, OD [address] [place] [address] documented as of this encounter Visit Diagnoses Diagnosis Hypothyroidism, unspecified type documented in this encounter Additional Health Concerns Assessment Noted Time PHQ-9 Depression Total Score: 0 04/06/20 23 10:11 AM EDT documented as of this encounter Care Teams Community Service Coordinator Relationship Specialty Start Date End Date Renetta Gómez MD [address] [place] [address] PCP - General Family Medicine 12/29/18 documented as of this encounter
--- OUTSIDE RECORDS SUMMARY | 2024-10-31 14:34 | XMS_ITS | Encounter Summary ---
Author Organization [employer] Address [address] [place] [address] 7 [place] [address] Care Team Providers Care Supervisor Underwriting Clerks Name Role Phone Renetta Gómez MD Primary Care Provide r Encounter Details Date Type Department Care Team (Late st Contact Info) Description 12/02/2022 Orders Only [facility] CH[facility] MED & PEDS [address] [place] [address] Lizbeth Navarro LPN Social History Tobacco Use [...] Description 11/30/2024 1:30 PM EDT Office Visit [facility] OPTOMETRY [address] [place] [address] Betina De La Rosa, OD [address] [place] [address] documented as of this encounter Visit Diagnoses Not on filedocumented in this encounter Care Teams Supervisor Underwriting Clerks Relationship Specialty Start Date End Date Renetta Gómez MD [address] [place] [address] PCP - General Family Medicine 12/29/18 documented as of this encounter
--- OUTSIDE RECORDS SUMMARY | 2024-10-31 14:34 | XMS_ITS | Encounter Summary ---
Author Organization [employer] Address [address] [facility] 7t [place] [address] Care Team Providers Care Excelsior Cutter Name Role Phone Renetta Gómez MD Primary [...] Description 11/30/2024 1:30 PM EDT Office Visit [facility] OPTOMETRY [address] [place] [address] Rj, Betina, OD [address] [place] [address] documented as of this encounter Visit Diagnoses Not on filedocumented in this encounter Additional Health Concerns Assessment Noted Time PHQ-9 Depression Total Score: 0 04/06/20 23 10:11 AM EDT documented as of this encounter Care Teams Excelsior Cutter Relationship Specialty Start Date End Date Renetta Gómez MD [address] [place], [place] [phone] PCP - General Family Medicine 12/29/18 documented as of this encounter
--- OUTSIDE RECORDS SUMMARY | 2024-10-31 14:34 | XMS_ITS | Encounter Summary ---
Author Organization [employer] Address [address] [facility] 7t [place] [address] Care Team Providers Care Belt Picker Name Role Phone Renetta Gómez MD Primary Care Provide r Reason for Visit * Reason Onset Date Comments PT1 03/21/2024 Encounter Details Date Type Department Care Team ([facility] st Contact Info) Description 03/21/2024 Telephone [facility] MEDICINE [address] [place], [place] [phone] Renetta Gómez MD [address] [place] [address] PT1 Social History Tobacco Use Types Packs/Day [...] facility name: Dr.Allison Bennett Facility Address: [address] [place], [place] Escort needed: Y/N: Yes Do you have a wheelchair: no If yes- Manual or electric: no Visits: 4 Patient calling requesting PT1 Home Address verified: Y/N: Yes Provider name or facility name: Dr.Corina Leon Facility Address: [address] [place], [place] Escort needed: Y/N: Yes Do you have a wheelchair: Y/N: No If yes- Manual or electric: no Visits: 4 Patient calling requesting PT1 Home Address verified: Y/N: Yes Provider name or facility name: Dr. Ele Esparza Facility Address: [address] [place], [place] Escort needed: Y/N: Yes Do you have a wheelchair: Y/N: No If yes- Manual or electric: no Visits: 4 Patient calling requesting PT1 Home Address verified: Y/N: No Provider name or facility name: Dr. Margie Hugo Facility Address: [address] [place], [place] Escort needed: Y/N: Yes Do you have a wheelchair: Y/N: No If yes- Manual or electric: no Visits: 4 * Telephone Encounter - Emily Rodriguez - 03/21/2024 12:28 PM EDT Patient calling requesting PT1 Home Address verified: Y/N: Yes Provider name or facility name: [facility] Facility Address: [address] [facility], Escort needed: Y/N: Yes Do you have a wheelchair: Y/N: No If yes- Manual or electric: NO Visits: ALL FUTURE APPTS documented in this encounter Plan of Treatment Upcoming Encounters Date Type Department Care Team (Late st Contact Info) Description 11/30/2024 1:30 PM EDT Office Visit [facility] OPTOMETRY [address] [place] [address] Betina De La Rosa, OD [address] [place] [address] documented as of this encounter Visit Diagnoses Not on filedocumented in this encounter Additional Health Concerns Assessment Noted Time PHQ-9 Depression Total Score: 0 04/06/20 23 10:11 AM EDT documented as of this encounter Care Teams Belt Picker Relationship Specialty Start Date End Date Renetta Gómez MD [address] [place] [address] PCP - General Family Medicine 12/29/18 documented as of this encounter
--- OUTSIDE RECORDS SUMMARY | 2024-10-31 14:34 | XMS_ITS | Clinical Summary ---
Author Organization [address] [facility] Address [address] [place] [address] Phone Care Team Providers Care Police Chief Name Role Phone Renetta Gómez MD Primary Care Provide r Allergies Active Allergy Reactions Criticality Noted Date Comments Acetaminophen-Codeine 06/13/2024 Shellfish Derived 06/13/2024 Medications clotrimazole (LOTRIMIN) 1 % cream Apply to skin and toenails daily for 12 weeks 4 Active ciclopirox (LOPROX) 0.77 % gel Apply topically 2 (two) times a day. 45 g 5 01/15/20 25 Active Active Problems Problem Noted Date Diagnosed Date Onychomycosis 06/13/2024 Pruritus 06/13/2024 Right hand pain 06/13/2024 T2DM (type 2 diabetes mellitus) 06/13/2024 Encounters Date Type Department Care Team Description 10/16/2024 1:45 PM EST Office Visit Orthopedic Surgery [facility] [address] [facility] [address] [place] [phone] Ed Cowart, DPM Dermatophytosis of nail (Primary [...] Recorded Sex Assigned at Not on file Legal Sex Female 8:18 PM EST Gender Identity Not on file Sexual Orientation Not on file Last Filed Vital Signs [...] PM EDT Office Visit Orthopedic Surgery - [place] [address] [phone] Ed Cowart, TEAGAN [address] [address] Health Maintenance Due Date Last Done Comments [...] Vaccines Completed 03/02/2023, 10/06/2022, 08/18/2022 Pneumococcal Vaccine: 50+ Years Completed 03/15/2024 Pneumococcal Vaccine: Pediatrics (0 to 5 Years) [...] patient's age to complete this topic Meningococcal B Vacine Aged Out No lo nger eligible based on patient's age to complete this topic RSV Immunization Patients Under 20 months Aged Out No longer eligible based on patient's age to complete this topic Varicella Vaccines Aged Out No longer eligible based on patient's age to complete this topic Insurance MEDICAID - [place] Care Teams Police Chief Relationship Specialty Start Date End Date Renetta Gómez MD [address] [place] [phone] [facility] - General 08/25/23
--- OUTSIDE RECORDS SUMMARY | 2024-10-31 14:34 | XMS_ITS | Encounter Summary ---
Author Organization [employer] Address [address] [facility] [address]t [place] [address] Care Team Providers Care Quality Assurance Tester Name Role Phone Renetta Gómez MD Primary Care Provide r Reason for Visit * Reason Comments Med Refill Encounter Details Date Type Department Care Team (Late st Contact Info) Description 07/29/[address] [facility] MEDICINE [address] [place], [place] [phone] Renetta Gómez MD [address] [place], [place] [phone] Pruritus Social History Tobacco Use Types Packs/Day [...] [facility] OPTOMETRY [address] [place], [place] [phone] Betina De La Rosa, OD [address] [place] [address] documented as of this encounter Visit Diagnoses Diagnosis Pruritus Unspecified pruritic disorder documented in this encounter Additional Health Concerns Assessment Noted Time PHQ-9 Depression Total Score: 0 04/06/20 23 10:11 AM EDT documented as of this encounter Care Teams Quality Assurance Tester Relationship Specialty Start Date End Date Renetta Gómez MD [address] [place] [address] PCP - General Family Medicine 12/29/18 documented as of this encounter
--- OUTSIDE RECORDS SUMMARY | 2024-10-31 14:34 | XMS_ITS | Encounter Summary ---
Author Organization [employer] Address [address] [facility] 7t [place] [address] Care Team Providers Care Fudger Name Role Phone Renetta Gómez MD Primary Care Provide r Encounter Details Date Type Department Care Team (Late st Contact Info) Description 10/17/2024 Orders Only GENERIC EXTERNAL DATA DEPARTMENT Provider, [...] 1:30 PM EDT Office Visit [facility] OPTOMETRY [address] [place] [address] Rj, Betina, OD [address] [place] [address] documented as of this encounter Procedures Procedure Name Priority Date/Time Associated Diagnosis Comments TSH Routine 10/17/2024 10:54 AM EST T4, FREE Routine 10/17/2024 10:54 AM EST documented in this encounter Results * T4, Free (10/17/2024 10:54 AM EST) Free T4 (Free Thyroxine) 1.09 0.71 - 1.85 ng/dL [facility] 10/17/2024 10:5 4 AM EST 10/17/2024 10:54 AM EST us Generic External Data Provider LAB BLOOD ORDERAB LES Final Result [facility] [address] [place] [address] [phone] * TSH (10/17/2024 10:54 AM EST) Thyroid Stimulating Hormone 1.85 0.32 - 4.0 uIU/mL [facility] Comment:TSH 3rd Generation ( [facility]) 10/17/2024 10:5 4 AM EST 10/17/2024 10:54 AM EST us Generic External Data Provider LAB BLOOD ORDERAB LES Final Result [facility] [address] [place] [address] [phone] documented in this encounter Visit Diagnoses Not on filedocumented in this encounter Additional Health Concerns Assessment Noted Time PHQ-9 Depression Total Score: 0 04/06/20 23 10:11 AM EDT documented as of this encounter Care Teams Fudger Relationship Specialty Start Date End Date Renetta Gómez MD [address] [place] [address] PCP - General Family Medicine 12/29/18 documented as of this encounter
--- OUTSIDE RECORDS SUMMARY | 2024-10-31 14:34 | XMS_ITS | Clinical Summary ---
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 06/11/20 23 Active Continuous Blood Gluc Defence Force Senior Officer (FreeStyle Oren 2 [place]) deviceIndications :Type 2 diabetes mellitus with hyperglycemia, with long-term current use of insulin ([facility]) Scan sensor every 8 hours 1 each 07/01/20 23 Active Continuous Blood Gluc Sensor (FreeStyle Oren 2 Sensor) miscIndications:T ype 2 diabetes mellitus with hyperglycemia, with long-term current use of insulin ([facility]) Apply 1 sensor every 14 days 2 each 07/01/20 23 Active Trulicity 4.5 MG/0.5ML solution pen-injectorIndic ations:Type 2 diabetes mellitus with hyperglycemia ([facility]) INJECT 4.5 mg [...] injectionIndicati ons:Type 2 diabetes mellitus with hyperglycemia (CMS/HCC),shelter (current) use of insulin (CMS/HCC) Inject 24 [...] up: with endocrinology as scheduled Fibromyalgia 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 06/30/2024 Liver cirrhosis [...] Encounters Date Type Department Care Team Description 10/24/2024 Telephone [facility] MEDICINE [address] [place] [address] Sarah Bernal ANP 10/17/2024 Orders Only GENERIC EXTERNAL DATA DEPARTMENT Provider, Generic External Data 10/06/2024 Orders Only GENERIC EXTERNAL DATA DEPARTMENT Provider, Generic External Data 10/05/2024 1:45 PM EST Office Visit [facility] MEDICINE [address] [place] [phone] Renetta Gómez MD Primary hypertension (Primary Dx); Type 2 diabetes mellitus with hyperglycemia, with long-term current use of insulin (CMS/HCC); Right flank pain; UTI symptoms 10/05/2024 Travel 09/25/2024 Patient Outreach [facility] MEDICINE [address] [place] [address] Renetta Gómez MD Pre-visit Planning (SDOH screening negative and tobacco screening negative) 08/04/[address] [address] Renetta Gómez MD Type 2 diabetes mellitus with hyperglycemia (CMS/HCC); Pruritus; shelter (current) use of insulin (CMS/HCC); Gastroesophageal reflux disease, unspecified whether esophagitis present; Type 2 diabetes mellitus with diabetic polyneuropathy (CMS/HCC) from Last 3 Months Immunizations Name Administration [...] Description 11/30/2024 1:30 PM EDT Office Visit [facility] OPTOMETRY [address] [place] [address] Betina De La Rosa, OD [address] [place] [address] Health Maintenance Due Date Last Done Comments [...] Procedure Name Priority Date/Time Associated Diagnosis Comments T4, FREE Routine 10/17/2024 10:54 AM EST TSH Routine 10/17/2024 10:54 AM EST BASIC METABOLIC PANEL Routine 10/17/2024 10:54 AM EST Wound healing, delayed GLUCOSE, WHOLE BLOOD Routine 10/06/2024 1:59 PM EST POCT URINALYSIS DIPSTICK Routine 10/05/2024 2:08 PM EST UTI symptoms CULTURE, URINE, ROUTINE Routine 10/05/2024 1:54 PM EST UTI symptoms POCT GLYCATED HEMOGLOBIN, TOTAL Routine 10/05/2024 1:27 PM EST Type 2 diabetes mellitus with hyperglycemia, with long-term current use of insulin (CMS/HCC) POCT GLUCOSE Routine 10/05/2024 1:26 PM EST Type 2 diabetes mellitus with hyperglycemia, with long-term current use of insulin (CMS/HCC) LIPID PANEL, STANDARD Routine 07/12/2024 10:54 AM EDT ALBUMIN, RANDOM URINE W/CREATININE Routine 07/12/2024 10:52 AM EDT BI MAMMOGRAM SCREENING TOMOSYNTHESIS BILATERAL Routine 05/12/2024 10:15 AM EDT Encounter for screening mammogram for malignant neoplasm of breast HIV ANTIBODY/ANTIGEN ([facility]) Routine 07/02/2023 8:37 AM EDT Z[facility] HISTORICAL HEPATITIS A,B,C PROFILE Routine 08/11/2022 11:00 AM EST [facility] HISTORICAL HPV DNA, HIGH RISK, CERVICAL Routine 05/08/2020 3:09 PM EDT THINPREP IMAGING SYSTEM PAP Routine 05/08/2020 3:09 PM EDT from Last 3 Months or Most Recently Relevant to Health Maintenance Results * TSH (10/17/2024 10:54 AM EST) Thyroid Stimulating Hormone 1.85 0.32 - 4.0 uIU/mL [facility] Comment:TSH 3rd Generation ( [facility]) 10/17/2024 10:5 4 AM EST 10/17/2024 10:54 AM EST us Generic External Data Provider LAB BLOOD ORDERAB LES Final Result [facility] [address] [place] [phone] * T4, Free (10/17/2024 10:54 AM EST) [facility] Free T4 (Free Thyroxine) 1.09 0.71 - 1.85 ng/dL [facility] 10/17/2024 10:5 4 AM EST 10/17/2024 10:54 AM EST Generic External Data Provider LAB BLOOD ORDERAB LES Final Result Performing Organization Address [facility]/ZIP Co de Phone Number [facility] [address] [place] [phone] * (ABNORMAL) Basic Metabolic Panel (10/17/2024 10:54 AM EST) [facility] Sodium 142 135 - 145 mmol/L [facility] Potassium 4.6 3.3 - 5.1 mmol/L [facility] Chloride 108 96 - 108 mmol/L [facility] Carbon Dioxide 28 22 - 29 mmol/L [facility] Anion Gap 11(L) 12 - 20 [facility] Urea Nitrogen (BUN) 15 9 - 16 mg/dL [facility] Creatinine, Serum 0.89 0.5 - 1.4 mg/dL [facility] Estimated Glomerular Filt Rate >60 [facility] Comment:Chronic Kidney Disea se: Estimated GFR < 60 mL/min/1.24e9Veyajh Kidney Disease: Estimated GFR < 15 mL/min/1.73m2 Glucose 185(H) 60 - 115 mg/dL [facility] Calcium 9.5 8.4 - 10.2 mg/dL [facility] Blood Venous blood specimen / Unknown 10/17/2024 10:54 AM EST 10/17/2024 10:54 AM EST [facility] Bernal [facility] LAB BLOOD ORDERABLES Final Resul t Performing Organization Address [facility]/ZIP Co de Phone Number [facility] [address] [place] [phone] * Glucose, Whole Blood (10/06/2024 1:59 PM EST) Glucose, Whole Blood 76 60 - 115 mg/dL [facility] Comment:METER #: [id number] Testing performed in the Endocrinology Department [address] , [address], [place]. 10/06/2024 1:59 PM EST 10/06/2024 2:13 PM EST Generic External Data Provider LAB BLOOD ORDERAB LES Final Result Performing Organization Address [facility]/ZIP Co de Phone Number [facility] [address] [place] [phone] * POCT Urinalysis (10/05/2024 2:08 PM EST) Color, UA Pinckney Clarity, UA Turbid Glucose, UA Negative Bilirubin, [...] EST 10/05/2024 5:02 PM EST Comment:UACC Narrative [facility] - 10/07/2024 8:59 AM EST Urine Culture No growth. Specimen Source: Urine clean catch Renetta Pedro MD LAB MICROBIOLOGY - GE NERAL ORDERABLES Final Result Performing Organization Address City/[facility]/ZIP Co de Phone Number [facility] [address] [place] [address] [phone] * (ABNORMAL) POCT HGB A1C (10/05/2024 1:27 PM EST) Pathologist [facility] Hemoglobin A1C 6.7(A) 4.0 - 6.0 % QC Media Lot # [id number] Lot# Expiration Date Blood 10/05/2024 1:27 PM EST Renetta Pedro MD POINT OF CARE TEST EN TER/EDIT ORDERABLES Final Result * POCT Glucose (10/05/2024 1:26 PM EST) Pathologist [facility] Glucose Blood, POC 129 60 - 200 mg/dL QC Media Lot # [id number] Lot# Expiration Date 025 Blood Capillary blood specimen / Unknown 10/05/2024 1:26 PM EST Renetta Pedro MD POINT OF CARE TEST EN TER/EDIT ORDERABLES Final Result * (ABNORMAL) Lipid Panel, Standard (07/12/2024 10:54 AM EDT) Triglycerides 170(H) <150 mg/dL [facility] Comment:Desirable Triglyceri de: less than 150 mg/dLBorderline High Triglyceride 150-199 mg/dLHigh Triglyceride: 200-499 mg/dLVery High Triglyceride: greater than or equal to 5OO mg/dL Cholesterol 179 <200 mg/dL [facility] Comment:Desirable Cholestero l: less than 200 mg/dLBorderline High Cholesterol: 200-239 mg/dLHigh Cholesterol: greater than 239 mg/dL LDL Cholesterol Calculated 109(H) <100 mg/dL [facility] Comment:Desirable LDL: less than 100 mg/dLNear Optimal/Above Optimal LDL: 110- 129 mg/dLBorderline High LDL: 130-159 mg/dLHigh LDL: 160-189 mg/dLVery High LDL: greater than or equal to 190 mg/dL HDL Cholesterol 36(L) >40 mg/dL [facility] Comment:Desirable HDL: great er than 40 mg/dL Note: This HDL assay may give artificially low results in patients with liver disease. 07/12/2024 10:5 4 AM EDT 07/12/2024 10:54 AM EDT Generic External Data Provider LAB BLOOD ORDERAB LES Final Result Performing Organization Address [facility] Co de Phone Number [facility] [address] [place] [phone] [phone] * Albumin, Random Urine W/Creatinine (07/12/2024 10:52 AM EDT) Creatinine, Urine 269.94 mg/dL [facility] Microalbumin Urine 33.0 mg/L [facility] Microalbum Creatinine Ratio Ur 12.2 <30 ug/mg cr [facility] Comment:Albumin/Creatinine R atio Reference Ranges: Normal: < 30 ug/mg creatinine Microalbuminuria: 30 - 300 ug/mg creatinineClinical Albuminuria: > 300 ug/mg creatinine 07/12/2024 10:5 2 AM EDT 07/12/2024 11:37 AM EDT Generic External Data Provider LAB URINE ORDERAB LES Final Result Performing Organization Address [facility] Co de Phone Number [facility] [address] [place] [address] [phone] * BI Mammogram Screening Tomosynthesis Bilateral (05/12/2024 10:15 AM EDT) Anatomical Region Laterality Modality Breast Bilateral Mammography 05/12/2024 10:1 5 AM EDT Narrative 06/02/2024 10:40 PM EDT ? [facility] ? [address] ?[place] [address] ? Mammography Report ? Signed ? Patient: Chasity David,Renata ?MR#: [id number] ?? [id number] ? : 1970 ?Acct:[id number] ? Age/Sex: 54 / F ?ADM Date: 08/30/24 ? Loc: HO.MAMMO ? Attending Dr: Renetta Pedro MD ? Ordering Physician: Renetta Gómez MD ?Results: ?? 1Negative ? Date of Service: 05/12/24 ?Follow Up: 1 Year From Orig ?? inal Mammogram ? Procedure(s): MM tomosynthesis screening BI ?? Accession Number(s): [id number] ? cc: Renetta Gómez MD ? EXAMINATION: [...] by Beth Milian, DO in OV> ? 06/02/242236 ? DD/ 1015 ? TD/TT: 05/12/24 1030 ? Enterprise Engineer: ? Procedure Note Donotuseinterpreter, Image - 06/02/2024 [facility] [address] [place] [address] Mammography Report Signed Patient: Julia Gusman#: [id number] : 1970Acct:[id number] Age/Sex: 54 / FADM Date: 05/12/24 Loc: HO.MAMMO Attending Dr: Renetta Pedro MD Ordering Physician: Renetta Gómez MDResults: 1Negative Date of Service: 05/12/24Follow Up: 1 Year From Orig inal Mammogram Procedure(s): MM tomosynthesis screening BI Accession Number(s): [id number] cc: Renetta Gómez MD EXAMINATION: MM SCREENING [...] by Beth Milian DO in OV> 06/02/24 2237 DD/ 1015 TD/TT: 05/12/24 1030 Enterprise Engineer: us Renetta Pedro MD IMG BI PROCEDURES Nael aftab Result - Final * HIV Ab/Ag (DAT [facility]) (07/02/2023 8:37 AM EDT) Pathologist [facility] HIV AB/AG Nonreactive Nonreactive [facility] Comment:HIV-1 p24 Ag and/or HIV-1/HIV-2 Ab not detected.A test result that is nonreactive does not exclude thepossibility of exposure to or infection with HIV-1 and/orHIV-2. Nonreactive results in this assay for individualswith prior exposure to HIV-1 and/or HIV-2 may be due toantigen and antibody levels that are below the limit ofdetection of this assay.The [employer] (Former[employer] HIV Ag/Ab Combo assay result andsupplemental assay results should be interpreted inconjunction with the patient's clinical presentation,history and other laboratory results. If the results areinconsistent with clinical evidence, additional testing issuggested to confirm the result. 07/02/2023 8:37 AM EDT 07/02/2023 11:24 AM EDT us Renetta Pedro MD LAB BLOOD ORDERABLES Final Result [facility] [address] [place] [phone] * Hepatitis A,B,C Profile (08/11/2022 11:00 [...] HCV infection. 08/11/2022 11:0 0 AM EST Historical Provider HISTORICAL/NON ORDERABLE LABS Final Result Performing Organization Address [facility] de Phone Number [facility] * HPV DNA, HIGH [...] MD HISTORICAL/NON ORDERA BLE LABS Final Result Performing Organization Address [facility] de Phone Number [facility] [address] * THINPREP TIS PAP (05/08/2020 3:09 PM EDT) Clinical Information: SEE COMMENT [facility] Comment:None given COMMENT SEE COMMENT [...] has been evaluated with computer assisted technology. Portfolio Assistant: SEE COMMENT [facility] Comment: LT, CT(ASCP) CT screening location: [address] ??[address] Infection SEE COMMENT [facility] Comment: Shift in vaginal zeina suggestive of bacterial vaginosis. Interpretation/Resu lt: SEE COMMENT [facility] Comment:Negative for intraep ithelial lesion or malignancy. LMP: SEE COMMENT [facility] Comment:NONE GIVEN Prev. BX: NONE GIVEN [facility] Prev. PAP: SEE COMMENT [facility] Comment:NONE GIVEN SOURCE: SEE COMMENT [facility] Comment:None given Statement Of Adequacy: SEE COMMENT [facility] Comment: Satisfactory for evaluation. Endocervical/transformation zone component present. Age and/or menstrual status not provided 05/08/2020 3:09 PM EDT Renetta Pedro MD LAB PATHOLOGY ORDERAB LES Final Result [facility] [address] from Last 3 Months or Most Recently Relevant to Health Maintenance Insurance * Guarantor: Renata Gusman Account Type Relation to Patient Date of Phone Billing Address Personal/Family Self 1970 [address] [place] [address] [facility] C3 * Guarantor: Renata Gusman Account Type Relation to Patient Date of Phone Billing Address Personal/Family Self [address] [place] [address] * Guarantor: Renata Gusman Account Type Relation to Patient Date of Phone Billing Address Personal/Family Self [address] [place] [address] * Guarantor: Renata Gusman Account Type Relation to Patient Date of Phone Billing Address Personal/Family Self [address] [place] [address] Care Teams Tin Flipper Relationship Specialty Start Date End Date Renetta Gómez MD [address] [place] [phone] PCP - General Family Medicine 12/29/18
--- OUTSIDE RECORDS SUMMARY | 2024-10-31 14:34 | XMS_ITS | Encounter Summary ---
Author Organization [employer] Address 75 [facility] 7t [place] [address] Care Team Providers Care Landscaping Specialist Name Role Phone Renetta Gómez MD Primary Care Provide r Encounter Details Date Type Department Care Team (Late st Contact Info) Description 10/24/2024 Telephone [facility] MED[facility] [address] [place], [place] [phone] Sarah Bernal ANP [address] [place] [address] Social History Tobacco Use Types Packs/Day Years [...] encounter Miscellaneous Notes * Telephone Encounter - Maggie Milian - 10/24/2024 4:14 PM EST Stable lab test results were sent out on 10/24/2024 documented in this encounter Plan of Treatment Upcoming Encounters Date Type Department Care Team (Late st Contact Info) Description 11/30/2024 1:30 PM EDT Office Visit [facility] OPTOMETRY [address] [place] [address] Rj, Betina, OD [address] [place] [address] documented as of this encounter Visit Diagnoses Not on filedocumented in this encounter Additional Health Concerns Assessment Noted Time PHQ-9 Depression Total Score: 0 04/06/20 23 10:11 AM EDT documented as of this encounter Care Teams Landscaping Specialist Relationship Specialty Start Date End Date Renetta Gómez MD [address] [place] [address] PCP - General Family Medicine 12/29/18 documented as of this encounter
--- OUTSIDE RECORDS SUMMARY | 2024-10-31 14:34 | XMS_ITS | Encounter Summary ---
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
--- OUTSIDE RECORDS SUMMARY | 2024-10-31 14:34 | XMS_ITS | Encounter Summary ---
Author Organization [employer] Address 75 [facility] [address]t [place] [address] Care Team Providers Care Railroad Police Officer Name Role Phone Renetta Gómez MD Primary Care Provide r Reason for Visit * Reason Onset Date Comments PT1 05/24/2024 Encounter Details Date Type Department Care Team ([facility] st Contact Info) Description 05/24/2024 Telephone [facility] MEDICINE [address] [place], [place] [phone] Renetta Gómez MD [address] [place] [address] PT1 Social History Tobacco Use Types Packs/Day [...] facility name: Ed [facility] DPM Facility Address: [address] [place] [address] Escort needed: Y/N: Yes Do you have a wheelchair: Y/N: No If yes- Manual or electric: Visits: 4-5 visits a year documented in this encounter Plan of Treatment Upcoming Encounters Date Type Department Care Team (Late st Contact Info) Description 11/30/2024 1:30 PM EDT Office Visit [facility] OPTOMETRY [address] [place] [address] Rj, Betina, OD [address] [place] [address] documented as of this encounter Visit Diagnoses Not on filedocumented in this encounter Additional Health Concerns Assessment Noted Time PHQ-9 Depression Total Score: 0 04/06/20 23 10:11 AM EDT documented as of this encounter Care Teams Railroad Police Officer Relationship Specialty Start Date End Date Renetta Gómez MD [address] [place] [address] PCP - General Family Medicine 12/29/18 documented as of this encounter
--- OUTSIDE RECORDS SUMMARY | 2024-10-31 14:34 | XMS_ITS | Encounter Summary ---
Author Organization [employer] Address 75 [facility] [address]t [place] [address] Care Team Providers Care Sandwich And Drink Cart Operator Name Role Phone Renetta Gómez MD Primary Care Provide r Encounter Details Date Type Department Care Team (Late st Contact Info) Description 06/16/2023 Orders Only [facility] CH[facility] MED & PEDS [address] [place], [place] [phone] Lizbeth Navarro LPN Social History Tobacco Use [...] Description 11/30/2024 1:30 PM EDT Office Visit [facility] OPTOMETRY [address] [place], [place] [phone] Betina De La Rosa, OD [address] [place], [place] [phone] documented as of this encounter Visit Diagnoses Not on filedocumented in this encounter Additional Health Concerns Assessment Noted Time PHQ-9 Depression Total Score: 0 04/06/20 10:11 AM EDT documented as of this encounter Care Teams Sandwich And Drink Cart Operator Relationship Specialty Start Date End Date Renetta Gómez MD [address] [place] [address] PCP - General Family Medicine 12/29/18 documented as of this encounter
--- OUTSIDE RECORDS SUMMARY | 2024-10-31 14:34 | XMS_ITS | Encounter Summary ---
Author Organization [employer] Address [address] [place] [address] 7 [place] [address] Care Team Providers Care Appellate Court Clerk Name Role Phone Renetta Gómez MD Primary Care Provide r Encounter Details Date Type Department Care Team (Late st Contact Info) Description 11/10/2022 Orders Only [facility] CHC MED & PEDS [address] [place] [address] Lizbeth Navarro LPN Social History Tobacco Use [...] Description 11/30/2024 1:30 PM EDT Office Visit [facility] OPTOMETRY [address] [place] [address] Betina De La Rosa, OD [address] [place] [address] documented as of this encounter Visit Diagnoses Not on filedocumented in this encounter Care Teams Appellate Court Clerk Relationship Specialty Start Date End Date Renetta Gómez MD [address] [place] [address] PCP - General Family Medicine 12/29/18 documented as of this encounter
--- OUTSIDE RECORDS SUMMARY | 2024-10-31 14:34 | XMS_ITS | Encounter Summary ---
Author Organization [employer] Address [address] [place] [address] 7t [place] [address] Care Team Providers Care Utilities Service Investigator Name Role Phone Renetta Gómez MD Primary Care Provide r Reason for Visit * Reason Comments Med Refill Encounter Details Date Type Department Care Team (Late st Contact Info) Description 06/16/2023 Refill [facility] MEDICINE [address] [place] [address] Roxana Quinonez MD [address] [place] [address] Social History Tobacco Use Types Packs/Day Years [...] Description 11/30/2024 1:30 PM EDT Office Visit [facility] OPTOMETRY [address] [place], [place] [phone] Betina De La Rosa, OD [address] [place] [address] documented as of this encounter Visit Diagnoses Not on filedocumented in this encounter Additional Health Concerns Assessment Noted Time PHQ-9 Depression Total Score: 0 04/06/20 23 10:11 AM EDT documented as of this encounter Care Teams Utilities Service Investigator Relationship Specialty Start Date End Date Renetta Gómez MD [address] [place] [address] PCP - General Family Medicine 12/29/18 documented as of this encounter
--- OUTSIDE RECORDS SUMMARY | 2024-10-31 14:34 | XMS_ITS | Encounter Summary ---
Author Organization [facility] Address [address] [place] [address] Care Team Providers Care Video Intern Name Role Phone Renetta Gómez MD Primary Care Provide r Reason for Visit * Reason Comments Follow-up Diabetic foot care Encounter Details Date Type Department Care Team (Late st Contact Info) Description 10/16/2024 1:45 PM EST Office Visit Orthopedic Surgery - [place] [address] [phone] Ed Cowart, DPM [address] [address] Dermatophytosis of nail (Primary Dx); Diabetic mononeuropathy [...] on file Sexual Orientation Not on file documented as of this [...] in this encounter Ordered Prescriptions Prescription Sig Dispense Quantity Refills Last Filled Start Date End Date ciclopirox (LOPROX) 0.77 % gel Apply topically 2 (two) times a day. 45 g 10/16/2024 documented in this encounter Progress Notes * Ed Cowart, TEAGAN - 10/16/2024 1:45 PM EST S: Patient [...] irritation she got from the topical lotion crossbar frame wirer was utilized for this encounter [id number] ROS: GENERAL: Pt denies nausea, fever, vomiting, [...] Pruritus L29.9 T2DM (type 2 diabetes mellitus) ([facility]) E11.9 Right hand pain M79.641 SOCIAL HISTORY: [...] PM EDT Office Visit [facility] - [place] [address] [phone] Ed Cowart, DPM [address] [address] documented as of this encounter Visit Diagnoses [...] uncontrolled documented in this encounter Care Teams Video Intern Relationship Specialty Start Date End Date Renetta Gómez MD [address] [place] [phone] PCP - General 08/25/23 documented as of this encounter
--- OUTSIDE RECORDS SUMMARY | 2024-10-31 14:34 | XMS_ITS | Encounter Summary ---
Author Organization [facility] Address [address] [place] [address] 7 [place] [address] Care Team Providers Care Refined Syrup Operator Name Role Phone Renetta Gómez MD Primary Care Provide r Reason for Visit * Reason Comments Med Refill Encounter Details Date Type Department Care Team (Late st Contact Info) Description 03/24/2023 Refill [facility] MEDICINE [address] [place] [address] Roxana Quinonez MD [address] [place] [address] Social History Tobacco Use Types Packs/Day Years [...] Description 11/30/2024 1:30 PM EDT Office Visit [facility] OPTOMETRY [address] [place] [address] Betina De La Rosa, OD [address] [place] [address] documented as of this encounter Visit Diagnoses Not on filedocumented in this encounter Care Teams Refined Syrup Operator Relationship Specialty Start Date End Date Renetta Gómez MD [address] [place] [address] PCP - General Family Medicine 12/29/18 documented as of this encounter
--- OUTSIDE RECORDS SUMMARY | 2024-10-31 14:34 | XMS_ITS | Encounter Summary ---
Author Organization [employer] Address [address] [facility] 7t [place] [address] Care Team Providers Care Electrical Calibrator Name Role Phone Renetta Gómez MD Primary [...] Description 11/30/2024 1:30 PM EDT Office Visit [facility] OPTOMETRY [address] [place], [place] [phone] RjParthan, OD [address] [place], [place] [phone] documented as of this encounter Procedures Procedure Name Priority Date/Time Associated Diagnosis Comments GLUCOSE, WHOLE BLOOD Routine 10/06/2024 1:59 PM EST documented in this encounter Results * Glucose, Whole Blood (10/06/2024 1:59 PM EST) Glucose, Whole Blood 76 60 - 115 mg/dL [facility] Comment:METER #: [id number] Testing performed in the Endocrinology Department [address] , [address], [facility]. 10/06/2024 1:59 PM EST 10/06/2024 2:13 PM EST us Generic External Data Provider LAB BLOOD ORDERAB LES Final Result [facility] [address] [place] [address] [phone] documented in this encounter Visit Diagnoses Not on filedocumented in this encounter Additional Health Concerns Assessment Noted Time PHQ-9 Depression Total Score: 0 04/06/20 23 10:11 AM EDT documented as of this encounter Care Teams Electrical Calibrator Relationship Specialty Start Date End Date Renetta Gómez MD [address] [place], [place] [phone] PCP - General Family Medicine 12/29/18 documented as of this encounter
--- OUTSIDE RECORDS SUMMARY | 2024-10-31 14:34 | XMS_ITS | Encounter Summary ---
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 (CMS/HCC) Liver cirrhosis [...] AREA TOPICALLY ONCE DAILY Continuous Blood Gluc Bulk Materials Handling Plant Operator (FreeStyle Oren 2 [place]) device Scan sensor every 8 hours 1 [...] 1 TABLET BY MOUTH ONCE DAILY BEFORE [id number] tablet 3 lidocaine (Lidoderm) 5 % patch [...] hyperglycemia, with long-term current use of insulin ([facility]) Diabetes is: controlled - Lab Results Component [...] with long- term current use of insulin ([facility]) Diabetes is: controlled - Lab Results Component [...] Description 11/30/2024 1:30 PM EDT Office Visit [facility] OPTOMETRY [address] [place], [place] [phone] Betina De La Rosa, OD [address] [place] [address] documented as of this encounter Procedures Procedure Name Priority Date/Time Associated Diagnosis Comments POCT URINALYSIS DIPSTICK Routine 10/05/2024 2:08 PM EST UTI symptoms CULTURE, URINE, ROUTINE Routine 10/05/2024 1:54 PM EST UTI symptoms POCT GLYCATED HEMOGLOBIN, TOTAL Routine 10/05/2024 1:27 PM EST Type 2 diabetes mellitus with hyperglycemia, with long-term current use of insulin ([facility]) POCT GLUCOSE Routine 10/05/2024 1:26 PM EST Type 2 diabetes mellitus with hyperglycemia, with long-term current use of insulin ([facility]) documented in this encounter Results * POCT Urinalysis (10/05/2024 2:08 PM EST) Color, UA [place] Clarity, UA Turbid Glucose, UA Negative Bilirubin, UA Trace Comment:SMALL Ketones, UA Negative Spec Grav, UA 1.030 Blood, UA Negative Negative, None Detected pH, UA 5.0 Protein, UA Trace Comment:30MG Urobilinogen, UA 1.0 Leukocytes, UA Negative Negative, Rare, Trace Nitrite, UA Negative Negative, None Detected Appearance, UA CLOUDY QC Media Lot # [id number] Lot# Expiration Date Urine 10/05/2024 2:08 PM EST Result [facility] Renetta Pedro MD POINT OF CARE TEST EN TER/EDIT ORDERABLES Final Result * Culture, Urine, Routine (10/05/2024 1:54 PM EST) Urine Urine specimen obtained by clean catch procedure / Unknown 10/05/2024 1:54 PM EST 10/05/2024 5:02 PM EST Comment:UACC Narrative [facility] - 10/07/2024 8:59 AM EST Urine Culture No growth. Specimen Source: Urine clean catch Renetta Pedro MD LAB MICROBIOLOGY - NERAL ORDERABLES Final Result [facility] [address] [place] [phone] * (ABNORMAL) POCT HGB A1C (10/05/2024 1:27 PM EST) Hemoglobin A1C 6.7(A) 4.0 - 6.0 % QC Media Lot # [id number] Lot# Expiration Date , Blood 10/05/2024 1:27 PM EST Result [facility] Rneetta Pedro MD POINT OF CARE TEST EN [...] hyperglycemia, with long-term current use of insulin ([facility]) Right flank pain Abdominal pain, unspecified site UTI symptoms documented in this encounter Additional Health Concerns Assessment Noted Time PHQ-9 Depression Total Score: 0 04/06/20 23 10:11 AM EDT documented as of this encounter Care Teams Occupational Therapist'S Assistant Relationship Specialty Start Date End Date Renetta Gómez MD [address] [place] [address] PCP - General Family Medicine 12/29/18 documented as of this encounter
[2024-12-13 08:25] VITALS: BMI 28.0
--- NOTE | 2024-12-14 13:07 | P.CONAN_ITS ---
Documented by User: Laura Nieto NP 12/14/24 13:14 HPI - Anesthesia Eval Consult details Narrative: 54yo F for Left Cubital Tunnel Release, Carpal Tunnel Release Cirrhosis. Follows [facility]. Last office visit 03/2024, compensated and MELD >10 Anesthesia Pre-Procedure Meds Is the patient on any of the following meds?: GLP1/DPP4 PMFSH Active Problems Active Problems: All Active Problems Carpal tunnel syndrome, right (Acute) Right shoulder tendinitis (Acute) Stiffness of right hand joint (Acute) Dupuytren's contracture of right hand (Acute) Cubital tunnel syndrome on right (Acute) Dupuytren's disease of palm of left hand (Acute) Dupuytren's disease of palm of right hand (Acute) Dupuytren contracture (Acute) Acute carpal tunnel syndrome of right wrist (Acute) Constipation (Acute) Type 2 diabetes mellitus with diabetic chronic kidney disease (Acute) Diabetes mellitus (Acute) Hypothyroidism (Acute) Fibromyalgia (Acute) Liver cirrhosis (Acute) Elevated liver enzymes (Acute) Type 2 diabetes mellitus with diabetic polyneuropathy (Acute) Type 2 diabetes mellitus with hyperglycemia, with long-term current use of insulin (Acute) 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 (Acute) Chronic kidney disease, stage 3 (Acute) Past Medical History Medical History Liver cirrhosis Hyperlipidemia Hepatitis C Elevated liver enzymes Hypothyroidism Depression Fibromyalgia Asthma Type 2 diabetes mellitus with diabetic polyneuropathy Type 2 diabetes mellitus with hyperglycemia, with long-term current use of insulin 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 Chronic kidney disease, stage 3 Family History Family History Mother Diabetes Asthma Kidney stones HTN (hypertension) Brother Diabetes Father Bloodstream infection Family history of problems with anesthesia: No Surgical History Surgical History Hx of colonoscopy Hx of hand surgery Hx of biopsy H/O oral surgery History of Problems with Anesthesia: No Social History Social History Household Members: Spouse Are you a primary animal care specialist to a significant other at home: No Do you presently have visiting nurse or other home services: No Alcohol intake: current Alcohol intake frequency: does not drink Patient Tobacco Use Status: Never used Tobacco Use of substances other than those prescribed or required for medical reasons: No Are you DNR?: No Advance Directives: No Advance Directives Information Provided: Yes Patient : No : No Poor oral hygiene: No Current occupational status: disabled Meds Allergies Allergy/AdvReac Type Severity Reaction Status Date / Time seafood Allergy Severe throat Verified 11/29/24 14:07 closes codeine [Tylenol-Codeine] Allergy Intermediate rash Verified 11/29/24 14:07 Home Medications ?Medication ?Instructions ?Recorded ?Confirmed ?Last Taken ?Type blood-glucose meter (FreeStyle #1 ea 08/23/20 08/16/24 Unknown History Lite Meter kit) escitalopram oxalate 20 mg tablet 20 mg PO DAILY 08/23/20 12/13/24 Unknown History gabapentin 300 mg capsule 300 mg PO DAILY 08/23/20 12/13/24 Unknown History lancets 28 gauge (FreeStyle #100 ea 08/23/20 08/16/24 Unknown History Lancets) albuterol sulfate 90 mcg/actuation 2 puff inhalation Q4-6H PRN 07/30/22 12/13/24 Unknown History aerosol inhaler (Ventolin HFA) Wheezing atorvastatin 20 mg tablet 20 mg PO DAILY 07/30/22 12/13/24 Unknown History clonazepam 0.5 mg tablet 0.5 mg PO BID PRN Anxiety 07/30/22 12/13/24 Unknown History lisinopril 10 mg tablet 10 mg PO DAILY 07/30/22 12/13/24 Unknown History hydroxyzine HCl 25 mg tablet 25 mg PO BID PRN Anxiety 09/29/22 12/13/24 Unknown History melatonin 5 mg tablet 5 mg PO BEDTIME 12/22/23 12/13/24 Unknown History buspirone 7.5 mg tablet 7.5 mg PO TID 03/29/24 12/13/24 Unknown History fluticasone propionate 50 1 spray intranasal DAILY 03/29/24 12/13/24 Unknown History mcg/actuation nasal spray,suspension trazodone 100 mg tablet 200 mg PO BEDTIME 03/29/24 12/13/24 Unknown History Exam Height,Weight and Vital Signs: Height 5 ft 4 in Weight 73.936 kg Pertinent Lab Results Pertinent Lab Results: Laboratory Tests 10/17/24 10:54 Sodium 142 Potassium 4.6 Chloride 108 Carbon Dioxide 28 BUN 15 Creatinine 0.89 Assessment and Plan Assessment Anesthesia Assessment: Chart Reviewed Final Anesthetic Review Family History of Problems with Anesthesia: No History of Problems with Anesthesia: No Documented by User: Trang Rosenbaum MD 12/18/24 07:57 PMFSH Past Medical History Medical History Liver cirrhosis Hyperlipidemia Hepatitis C Elevated liver enzymes Hypothyroidism Depression Fibromyalgia Asthma Type 2 diabetes mellitus with diabetic polyneuropathy Type 2 diabetes mellitus with hyperglycemia, with long-term current use of insulin 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 Chronic kidney disease, stage 3 Family History Family History Mother Diabetes Asthma Kidney stones HTN (hypertension) Brother Diabetes Father Bloodstream infection Surgical History Surgical History Hx of colonoscopy Hx of hand surgery Hx of biopsy H/O oral surgery Social History Social History Household Members: Spouse Are you a primary animal care specialist to a significant other at home: No Do you presently have visiting nurse or other home services: No Alcohol intake: current Alcohol intake frequency: does not drink Patient Tobacco Use Status: Never used Tobacco Use of substances other than those prescribed or required for medical reasons: No Are you DNR?: No Advance Directives: No Advance Directives Information Provided: Yes Patient : No : No Poor oral hygiene: No Current occupational status: disabled Meds Allergies Allergy/AdvReac Type Severity Reaction Status Date / Time seafood Allergy Severe throat Verified 11/29/24 14:07 closes codeine [Tylenol-Codeine] Allergy Intermediate rash Verified 11/29/24 14:07 Home Medications ?Medication ?Instructions ?Recorded ?Confirmed ?Last Taken ?Type blood-glucose meter (FreeStyle #1 ea 08/23/20 08/16/24 Unknown History Lite Meter kit) escitalopram oxalate 20 mg tablet 20 mg PO DAILY 08/23/20 12/13/24 Unknown History gabapentin 300 mg capsule 300 mg PO DAILY 08/23/20 12/13/24 Unknown History lancets 28 gauge (FreeStyle #100 ea 08/23/20 08/16/24 Unknown History Lancets) albuterol sulfate 90 mcg/actuation 2 puff inhalation Q4-6H PRN 07/30/22 12/13/24 Unknown History aerosol inhaler (Ventolin HFA) Wheezing atorvastatin 20 mg tablet 20 mg PO DAILY 07/30/22 12/13/24 Unknown History clonazepam 0.5 mg tablet 0.5 mg PO BID PRN Anxiety 07/30/22 12/13/24 Unknown History lisinopril 10 mg tablet 10 mg PO DAILY 07/30/22 12/13/24 Unknown History hydroxyzine HCl 25 mg tablet 25 mg PO BID PRN Anxiety 09/29/22 12/13/24 Unknown History melatonin 5 mg tablet 5 mg PO BEDTIME 12/22/23 12/13/24 Unknown History buspirone 7.5 mg tablet 7.5 mg PO TID 03/29/24 12/13/24 Unknown History fluticasone propionate 50 1 spray intranasal DAILY 03/29/24 12/13/24 Unknown History mcg/actuation nasal spray,suspension trazodone 100 mg tablet 200 mg PO BEDTIME 03/29/24 12/13/24 Unknown History Exam Airway Mallampati Class: II TM Dist: >3cm Heart: rrr Lungs: cta Assessment and Plan Assessment Anesthesia Assessment: Anesthesia Plan Discussed Final Anesthetic Review NPO: Yes ASA Class: III Final Preanesthetic Review: No Changes in Pt Med Stat, Meds/Allgs Chart Reviewed, Consent Obtained/Reviewed and Anes Risks/Benef Reviewed Patient Risk: Intermediate Procedure Risk: Low Anesthetic Plan Anesthetic Plan: GA Disposition: Standard PACU
[2024-12-18] VITALS (7 sets, daily range): BP systolic 111–138; BP diastolic 44–64; PULSE 78–89; RESP 16; TEMP 35.9–36.3; O2SAT 94–99; BMI 26.5
[2024-12-18 06:35] LABS: INTERNATIONAL NORM RATIO 1.3 (0.9-1.1); Prothrombin Time 15.2 SEC (10.9-12.4)
[2024-12-18 06:42] LABS: Glucose, Whole Blood 123 mg/dL (60-115)
[2024-12-18] MEDS: Lactated Ringers 1,000 ML 100 ML IVCONT (06:45)
[2024-12-18 06:55] LABS: Hematocrit 41.5 % (37.0-47.0); Hemoglobin 14.1 g/dl (12.0-16.0); Mean Corpuscular Hemoglobin 30.5 pg (27.0-33.0); Mean Corpuscular Volume 89.6 fL (80.0-98.0); Red Blood Count 4.63 X10*6/uL (4.20-5.50); Red Cell Distribution Width 13.8 % (11.0-16.0); White Blood Count 5.7 X10*3/uL (4.8-10.8)
[2024-12-18 07:17] LABS: Mean Platelet Volume 11.6 fL (9.4-12.3); Platelet Count 85 X10*3/uL (160-400)
--- NOTE | 2024-12-18 07:37 | MHC.SHP ---
Pre-Procedural Eval Section A - 24 Hr Update-Section A only Date of Service: 12/18/24 The patient is an INPATIENT: No Changes since office visit: No Cold of Flu in the past 2 weeks, No New Medical Problems, No Changes in Medication and No Patient answered all questions The patient has been examined within 24 hours of the surgical procedure. The History & Physical has been completed within 30 days and I have reviewed it.: Yes Section B - Complete if H&P > 30 days Chief Complaint: right cubital/carpal tunnel Allergies: Allergies Allergy/AdvReac Type Severity Reaction Status Date / Time seafood Allergy Severe throat Verified 11/29/24 14:07 closes codeine [Tylenol-Codeine] Allergy Intermediate rash Verified 11/29/24 14:07 Plan Diagnosis/Plan: Unchanged I have reviewed the history and physical and performed a pertinent physical examination on my patient. No changes have occurred unless specified. Time Spent With Patient Time: Total time managing care of this patient today ____ minutes.
--- NOTE | 2024-12-18 07:38 | P.OP_ITS ---
Operative Note Operative Note Date of Service: 12/18/24 Narrative: Operative Note Narrative: Preop diagnosis: 1. Right Cubital tunnel syndrome 2. Right carpal tunnel syndrome Postop diagnosis: Same Procedure: 1. Right Cubital Tunnel Release 2. Right carpal tunnel release Surgeon: Breanne Bennett MD Recreation Attendant: None Anesthesia: General Anesthesia Findings: Thickening and fibrosis about the ulnar nerve at the cubital tunnel Implants: none Tourniquet time: 35 minutes EBL: 5.0 ml Specimen: none Drains: None Complications: None Disposition: Brought to the recovery room in stable condition Plan: Follow-up in 10-14 days for wound check, and suture removal Indications: The patient is 54 years old with right cubital tunnel syndrome and right carpal tunnel syndrome . The risks and benefits of operative treatment, including but not limited to risk of damage to blood vessels, nerves, tendons, infection, recurrence, persistent pain or numbness, incomplete resolution of preoperative symptoms, or need for further surgery were discussed with the patient and they wished to proceed with surgery. Procedure: Once consent was obtained patient was brought back to the operating suite and placed in the operating table in a supine position. Perioperative antibiotics and anesthesia was administered by the anesthesia team. The limb was prepped and draped in a standard surgical fashion, and a sterile tourniquet applied to the proximal aspect of the right upper extremity. The limb was elevated exsanguinated with Esmarch bandage and the tourniquet inflated to 250 mm of mercury for a total tourniquet time of 35 minutes. Once assured that we had a good block, a 2.0 cm longitudinal incision was made centered over the right carpal tunnel. The incision was made through the skin to the subcutaneous tissues using a #15 blade. Dissection was made down to the level of the transverse carpal ligament with care being taken to protect the palmar cutaneous nerve. Once the transverse carpal ligament was clearly visualized, a longitudinal incision was made in the transverse carpal ligament 1st using a #15 blade, then using tenotomy scissors under direct visualization. Care was taken to look for and protect the motor branch of the median nerve when seen in this area. Once satisfied with our carpal tunnel release the wound was irrigated with normal saline. The skin edges were reapproximated with some 5 0 Prolene suture material A 6 cm gently curved but longitudinally oriented incision was made centered over the cubital tunnel of the right upper extremity. Incision was made through the skin to the subcutaneous tissues using a # 15 Blade. I then dissected down to the level of the medial epicondyle and the cubital tunnel using tenotomy scissors. Care was taken to protect the medial antebrachial cutaneous nerve. The ulnar nerve was identified just posterior to the medial intermuscular septum. The ulnar nerve was released in a proximal to distal direction using tenotomy in iris scissors while directly visualizing and protecting the ulnar nerve. Thickening and fibrosis was appreciated about the ulnar nerve as it passed through the cubital tunnel. The ulnar nerve was assessed as I passed the elbow through full flexion and extension and was found to remain stable within its groove. At this point the tourniquet was deflated and hemostasis obtained with a brief period of local pressure and bipolar electrocautery. The wound was copiously irrigated with normal saline. The subcutaneous layer was closed with 4-0 Vicryl suture, and the skin edges were reapproximated with a running 4-0 Monocryl subcuticular closure. Steri-Strips and Mastisol were applied.. The wound was infiltrated with some 1% lidocaine with epinephrine for postop pain control and sterile dressings were applied. The patient appears to have tolerated the procedure well and with no complications. All digits were well vascularized at the conclusion of the case.
== END 2024-12-18 10:30 | disposition home or self-care (01) ==
PROVIDERS: Nurse Practitioner; PCP Internal Medicine; Visit Provider Orthopaedic Surgery
PROC: (CPT 64718; principal; 2024-12-18 07:30)
PROC: (CPT 64721; 2024-12-18 07:30)
DX: G56.01 Carpal tunnel syndrome, right upper limb (principal); G56.21 Lesion of ulnar nerve, right upper limb; M25.641 Stiffness of right hand, not elsewhere classified; E11.22 Type 2 diabetes mellitus with diabetic chronic kidney disease; E11.65 Type 2 diabetes mellitus with hyperglycemia; E11.42 Type 2 diabetes mellitus with diabetic polyneuropathy; N18.30 Chronic kidney disease, stage 3 unspecified; E78.5 Hyperlipidemia, unspecified; J45.909 Unspecified asthma, uncomplicated; M79.7 Fibromyalgia; B19.20 Unspecified viral hepatitis C without hepatic coma; K74.60 Unspecified cirrhosis of liver; Z79.4 Long term (current) use of insulin; Z79.85 Long-term (current) use of injectable non-insulin antidiabetic drugs; Z88.5 Allergy status to narcotic agent; Z98.890 Other specified postprocedural states
CPT/HCPCS: 64721; 64718; 36415; 82947; 85027; 85610; J0131; J0690; J2003; J2004; J2405; J2704; J3010

== ENCOUNTER → 2024-12-18 05:45 | Outpatient (BNV) | payer MEDICAID, SELFPAY | PROVIDERS: PCP Internal Medicine; Visit Provider Orthopaedic Surgery | DX: G56.01 Carpal tunnel syndrome, right upper limb (principal); G56.21 Lesion of ulnar nerve, right upper limb | CPT/HCPCS: 64718; 64721 ==

== ENCOUNTER 2025-01-03 15:36 | Outpatient (AMB) | payer MEDICAID, SELFPAY ==
--- NOTE | 2025-01-03 15:48 | MHC.OFFVIS ---
Vital Signs 01/03/25 16:00 Handedness Right Intake Visit Reasons: PO LT Cubital/CTR 12/18/24 AR Intake Note: Renata is a 54 year old right hand dominant female who presents today for a post operative visit s/p right carpal tunnel release and right cubital tunnel release DOS: 12/18/[address] Breanne Bennett. patient reports she does not feel improvement in her symptoms. She states she is having numbness in the 5th small digit of the right hand and since surgery she feels her hand has been turning cold. Sutures removed and steri strips applied. Racing Driver Required: Yes Racing Driver Language: Balance Weigher Name: Viktoria JUARES/ELOINA Allergies seafood Allergy (Severe, Verified 01/03/25 15:59) throat closes codeine [Tylenol-Codeine] Allergy (Intermediate, Verified 01/03/25 15:59) rash HPI HPI PO LT Cubital/CTR 12/18/24 AR: Details: Renata is a 54 year old right hand dominant female who presents today for a post operative visit s/p right carpal tunnel release and right cubital tunnel release DOS: 12/18/[address] Breanne Bennett. patient reports she does not feel improvement in her symptoms. She states she is having numbness in the 5th small digit of the right hand and since surgery she feels her hand has been turning cold. Sutures removed and steri strips applied. 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 Chronic kidney disease, stage 3 Surgical History Hx of colonoscopy Hx of hand surgery Hx of biopsy H/O oral surgery Family History Mother Diabetes Asthma Kidney stones HTN (hypertension) Brother Diabetes Father Bloodstream infection Social History Household Members: Spouse Are you a primary healthcare specialist to a significant other at home: No Do you presently have visiting nurse or other home services: No Alcohol intake: current Alcohol intake frequency: does not drink Patient Tobacco Use Status: Never used Tobacco Current occupational status: disabled Review of Systems Const All systems reviewed & are unremarkable except as noted in HPI and below Physical Exam Extrem Other: Patient is alert, oriented, and in no acute distress. Neuro: Normal sensation of the tips of all digits of the right hand at this time Vascular: Cap refill brisk Pain: No tenderness to palpation about this incision sites in the volar left wrist or medial left elbow Some pain with range of motion of the left hand ROM: Patient is able to make a closed fist and extend all digits of the left hand fully and without difficulty Skin: No lacerations or abrasions. General: No ecchymosis, erythema, or evidence of infection. Vascular: Slightly delayed capillary refill in the left hand when compared to the right 2+ radial pulses bilaterally Left hand noted to be cooler to the touch than the right hand Psych: Appears grossly normal Affect normal Attitude cooperative Assessment & Plan Assessment & Plan (1) Prolonged capillary refill time: Code(s): R09.89 - Other specified symptoms and signs involving the circulatory and respiratory systems Category: Medical (2) Carpal tunnel syndrome, right: Code(s): G56.01 - Carpal tunnel syndrome, right upper limb Category: Medical (3) Cubital tunnel syndrome on right: Code(s): G56.21 - Lesion of ulnar nerve, right upper limb Category: Medical Plan 1. Delayed capillary refill of right hand 2. Status post right cubital tunnel release 3. Status post right carpal tunnel release DOS 12/18/2024 Patient was seen with Dr. Bennett, and a collaborative treatment plan was formed: After discussion with Dr. Menjivar in vascular surgery, patient was referred for arterial ultrasound of right upper extremity to rule out blood clot Should be done within the next week Follow-up after ultrasound for results review and discussion of further treatment options if indicated With regards to cubital and carpal tunnel releases, incisions appear to be healing quite well No other concerns at this time Orders: Orders US arterial duplex UE RT Today G56.01 - Carpal tunnel syndrome, right upper limb, G56.21 - Lesion of ulnar nerve, right upper limb, R09.89 - Other specified symptoms and signs involving the circulatory and respiratory systems Coding Level of Care Code Global (13576) Diagnoses Prolonged capillary refill time R09.89 Carpal tunnel syndrome, right G56.01 Cubital tunnel syndrome on right G56.21
--- OUTSIDE RECORDS SUMMARY | 2025-01-03 18:13 | XMS_ITS | Encounter Summary ---
Author Organization [email or web address] Address [address] [place] [address] 7 [place] [address] Care Team Providers Care Tank Wagon Operator Name Role Phone Renetta Gómez MD Primary Care Provide r Encounter Details Date Type Department Care Team (Late st Contact Info) Description 12/02/2022 Orders Only [facility] MED & PEDS [address] [place] [address] Lizbeth Navarro LPN Social History Tobacco Use [...] Care Team (Late st Contact Info) Description 04/10/2025 2:00 PM EDT Office Visit [facility] OPTOMETRY [address] [place] [address] Betina De La Rosa, OD [address] [place] [address] documented as of this encounter Visit Diagnoses Not on filedocumented in this encounter Care Teams Tank Wagon Operator Relationship Specialty Start Date End Date Renetta Gómez MD [address] [place] [address] PCP - General Family Medicine 12/29/18 documented as of this encounter
--- OUTSIDE RECORDS SUMMARY | 2025-01-03 18:13 | XMS_ITS | Encounter Summary ---
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
--- OUTSIDE RECORDS SUMMARY | 2025-01-03 18:13 | XMS_ITS | Encounter Summary ---
Author Organization [employer] Address [address] [place] [address] 7 [place] [address] Care Team Providers Care Certified Credit Counselor Name Role Phone Renetta Gómez MD Primary Care Provide r Encounter Details Date Type Department Care Team (Late st Contact Info) Description 11/10/2022 Orders Only [facility] CHC MED & PEDS [address] [place] [address] Lizbeth Navarro LPN Social History Tobacco Use [...] Description 04/10/2025 2:00 PM EDT Office Visit [facility] OPTOMETRY [address] [place] [address] Betina De La Rosa, OD [address] [place] [address] documented as of this encounter Visit Diagnoses Not on filedocumented in this encounter Care Teams Certified Credit Counselor Relationship Specialty Start Date End Date Renetta Gómez MD [address] [place] [address] PCP - General Family Medicine 12/29/18 documented as of this encounter
--- OUTSIDE RECORDS SUMMARY | 2025-01-03 18:13 | XMS_ITS | Encounter Summary ---
Author Organization [employer] Address [address] [place] [address] 7t [place] [address] Care Team Providers Care Clinician Oncology Name Role Phone Renetta Gómez MD Primary Care Provide r Reason for Visit * Reason Comments Med Refill Encounter Details Date Type Department Care Team (Late Contact Info) Description 06/16/2023 Refill [facility] MEDICINE [address] [place] [address] Roxana Quinonez MD [address] [place] [address] Social History Tobacco Use Types Packs/Day Years [...] 2:00 PM EDT Office Visit [facility] OPTOMETRY [address] [place], [place] [phone] Betina De La Rosa, OD [address] [place] [address] documented as of this encounter Visit Diagnoses Not on filedocumented in this encounter Additional Health Concerns Assessment Noted Time PHQ-9 Depression Total Score: 0 04/06/20 23 10:11 AM EDT documented as of this encounter Care Teams Clinician Oncology Relationship Specialty Start Date End Date Renetta Gómez MD [address] [place] [address] PCP - General Family Medicine 12/29/18 documented as of this encounter
--- OUTSIDE RECORDS SUMMARY | 2025-01-03 18:13 | XMS_ITS | Clinical Summary ---
Author Organization [facility] Address [address] [place] [address] Phone Care Team Providers Care Body Work Auto Trimmer Name Role Phone Renetta Gómez MD Primary [...] pain 06/13/2024 T2DM (type 2 diabetes mellitus) ([facility] V24, CM S/[facility] V28) 06/13/2024 Encounters Date Type Department Care Team Description 10/16/2024 1:45 PM EST Office Visit Orthopedic Surgery [facility] [address] [facility] [address] [place] [phone] Ed Cowart, DPM Dermatophytosis of nail (Primary Dx); Diabetic mononeuropathy simplex ([facility] V24, [facility] V28); Acquired hammer toe of right foot; Hammer toe of left foot; Type II diabetes mellitus with peripheral circulatory disorder ([facility] V24, [facility] V28) from Last 3 Months Social History Tobacco [...] PM EDT Office Visit Orthopedic Surgery - [place] [address] [phone] Ed Cowart, DPM [address] [address] Health Maintenance Due Date Last Done Comments [...] age to complete this topic Meningococcal B Vaccine Aged Out No l onger eligible based on patient's age to complete this topic RSV Immunization Patients Under 20 months Aged Out No longer eligible based on patient's age to complete this topic Varicella Vaccines Aged Out No longer eligible based on patient's age to complete this topic Insurance MEDICAID - [place] Care Teams Body Work Auto Trimmer Relationship Specialty Start Date End Date Renetta Gómez MD [address] [place] [phone] PCP - General 08/25/23
--- OUTSIDE RECORDS SUMMARY | 2025-01-03 18:13 | XMS_ITS | Encounter Summary ---
Author Organization [facility] [place] Address [address] [place] [address] 7 [place] [address] Care Team Providers Care Well Drill Operator Rotary Drill Name Role Phone Renetta Gómez MD Primary Care Provide r Reason for Visit * Reason Comments Med Refill Encounter Details Date Type Department Care Team (Late st Contact Info) Description 03/24/2023 Refill [facility] MEDICINE [address] [place] [address] Roxana Quinonez MD [address] [place] [address] Social History Tobacco Use Types Packs/Day Years [...] Description 04/10/2025 2:00 PM EDT Office Visit [facility] OPTOMETRY [address] [place] [address] Betina De La Rosa, OD [address] [place] [address] documented as of this encounter Visit Diagnoses Not on filedocumented in this encounter Care Teams Well Drill Operator Rotary Drill Relationship Specialty Start Date End Date Renetta Gómez MD [address] [place] [address] PCP - General Family Medicine 12/29/18 documented as of this encounter
--- OUTSIDE RECORDS SUMMARY | 2025-01-03 18:13 | XMS_ITS | Encounter Summary ---
Author Organization [employer] Address [address] [facility] [address]t [place] [address] Care Team Providers Care Video Game Programmer Name Role Phone Renetta Gómez MD Primary Care Provide r Reason for Visit * Reason Onset Date Comments PT-1 11/08/2024 Encounter Details Date Type Department Care Team ([facility] st Contact Info) Description 11/08/2024 Telephone [facility] MEDICINE [address] [place], [place] [phone] Renetta Gómez MD [address] [place] [address] PT-1 Social History Tobacco Use Types Packs/Day Years [...] encounter Miscellaneous Notes * Telephone Encounter - Ralph Lockett - 11/08/2024 3:05 PM EST Patient calling requesting PT1 Home Address verified: Y/N: Yes Provider name or facility name: [address] [place] [address] Dr. Wolfe 203 Escort needed: Y/N: No Do you have a wheelchair: Y/N: No If yes- Manual or electric: Visits: (4) ( monthly) documented in this encounter Plan of Treatment Upcoming Encounters Date Type Department Care Team (Late st Contact Info) Description 04/10/2025 2:00 PM EDT Office Visit [facility] OPTOMETRY [address] [place] [address] Rj, Betina, OD [address] [place] [address] documented as of this encounter Visit Diagnoses Not on filedocumented in this encounter Additional Health Concerns Assessment Noted Time PHQ-9 Depression Total Score: 0 04/06/20 23 10:11 AM EDT documented as of this encounter Care Teams Video Game Programmer Relationship Specialty Start Date End Date Renetta Gómez MD [address] [place] [address] PCP - General Family Medicine 12/29/18 documented as of this encounter
--- OUTSIDE RECORDS SUMMARY | 2025-01-03 18:13 | XMS_ITS | Encounter Summary ---
Author Organization [employer] Address [address] [facility] [address]t [place] [address] Care Team Providers Care Dietetic Technician Name Role Phone Renetta Gómez MD Primary Care Provide r Reason for Visit * Reason Comments Med Refill Encounter Details Date Type Department Care Team (Late st Contact Info) Description 07/29/2024 Refill [facility] MEDICINE [address] [place], [place] [phone] Renetta Gómez MD [address] [place], [place] [phone] Pruritus Social History Tobacco Use Types Packs/Day [...] Description 04/10/2025 2:00 PM EDT Office Visit [facility] OPTOMETRY [address] [place], [place] [phone] Betina De La Rosa, OD [address] [place] [address] documented as of this encounter Visit Diagnoses Diagnosis Pruritus Unspecified pruritic disorder documented in this encounter Additional Health Concerns Assessment Noted Time PHQ-9 Depression Total Score: 0 04/06/20 23 10:11 AM EDT documented as of this encounter Care Teams Dietetic Technician Relationship Specialty Start Date End Date Renetta Gómez MD [address] [place] [address] PCP - General Family Medicine 12/29/18 documented as of this encounter
--- OUTSIDE RECORDS SUMMARY | 2025-01-03 18:13 | XMS_ITS | Encounter Summary ---
Author Organization [employer] Address [address] [facility] [address] [place] [address] Care Team Providers Care Director Drug Name Role Phone Renetta Gómez MD Primary Care Provide r Reason for Visit * Reason Comments Med Refill Encounter Details Date Type Department Care Team (Late st Contact Info) Description 09/25/2023 Refill [facility] [address] [place], [place] [phone] Renetta Gómez MD [address] [place], [place] [phone] Hypothyroidism, unspecified type Social History Tobacco Use [...] 2:00 PM EDT Office Visit [facility] OPTOMETRY [address] [place] [address] Betina De La Rosa, OD [address] [place] [address] documented as of this encounter Visit Diagnoses Diagnosis Hypothyroidism, unspecified type documented in this encounter Additional Health Concerns Assessment Noted Time PHQ-9 Depression Total Score: 0 04/06/20 23 10:11 AM EDT documented as of this encounter Care Teams Director Drug Relationship Specialty Start Date End Date Renetta Gómez MD [address] [place] [address] PCP - General Family Medicine 12/29/18 documented as of this encounter
--- OUTSIDE RECORDS SUMMARY | 2025-01-03 18:13 | XMS_ITS | Encounter Summary ---
Author Organization [employer] Address [address] [facility] [address] [place] [address] Care Team Providers Care Miner Placer Name Role Phone Renetta Gómez MD Primary Care Provide r Encounter Details Date Type Department Care Team (Late Contact Info) Description 06/16/2023 Orders Only [facility] CHC MED & PEDS [address] [place], [place] [phone] Lizbeth Navarro LPN Social History Tobacco Use [...] Description 04/10/2025 2:00 PM EDT Office Visit [facility] OPTOMETRY [address] [place], [place] [phone] Betina De La Rosa, OD [address] [place] [address] documented as of this encounter Visit Diagnoses Not on filedocumented in this encounter Additional Health Concerns Assessment Noted Time PHQ-9 Depression Total Score: 0 04/06/20 23 10:11 AM EDT documented as of this encounter Care Teams Miner Placer Relationship Specialty Start Date End Date Renetta Gómez MD [address] [place] [address] PCP - General Family Medicine 12/29/18 documented as of this encounter
--- OUTSIDE RECORDS SUMMARY | 2025-01-03 18:13 | XMS_ITS | Clinical Summary ---
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 TAKE 1/2 HOUR BEFORE MEALS 023 Active clonazePAM (KlonoPIN) 0.5 MG tablet TAKE 1 TABLET BY MOUTH two (2) times a day NEEDED 023 Active escitalopram (Lexapro) 20 MG tablet Take 20 mg by mouth in the morning. 023 Active traZODone (Desyrel) 150 MG tablet Take 150 mg by mouth at bedtime. 023 Active Continuous Blood Gluc Delimber Operator (FreeStyle Oren 2 [place]) deviceIndications :Type 2 diabetes mellitus with hyperglycemia, with long-term current use of insulin ([facility]) Scan sensor every 8 hours 1 each 023 Active Continuous Blood Gluc Sensor (FreeStyle Oren 2 Sensor) miscIndications:T ype 2 diabetes mellitus with hyperglycemia, with long-term current use of insulin ([facility]) Apply 1 sensor every 14 days 2 each Active Trulicity 4.5 MG/0.5ML solution pen-injectorIndic ations:Type 2 diabetes mellitus with hyperglycemia ([facility]) INJECT 4.5 mg SUBCUTANEOUSLY EVERY WEEK 2 mL 3 024 Active EPINEPHrine (Epipen) 0.3 MG/0.3ML injection syringeIndication s:Seafood allergy Inject 0.3 mL (0.3 mg) as directed 1 (one) time if needed for anaphylaxis. Inject into upper leg. Call 911 after use. 2 each Active levothyroxine (Synthroid, Levoxyl) 25 MCG tabletIndications :Hypothyroidism, unspecified type TAKE 1 TABLET BY MOUTH ONCE DAILY BEFORE BREAKFAST 90 tablet 3 Active naproxen (Naprosyn) 500 MG tablet TAKE 1 TABLET BY MOUTH two (2) times a day Active Melatonin Maximum Strength 5 MG tablet TAKE 2 TABLETS (10 mg) BY MOUTH EVERY NIGHT AT BEDTIME Active lidocaine (Lidoderm) 5 % patch APPLY 1 PATCH TOPICALLY ONCE DAILY. remove patch after 12 hours. leave on most painful area Active docusate sodium (Colace) 100 MG capsule TAKE TWO CAPSULES BY MOUTH ONCE DAILY AT BEDTIME Active Bisacodyl EC 5 MG EC tablet TAKE 2 TABLETS BY MOUTH ONCE DAILY AT BEDTIME Active albuterol 108 (90 Base) MCG/ACT inhaler Inhale 2 puffs every 6 (six) hours if needed for wheezing. 18 g 11 024 2024 Active fluticasone (Flonase) 50 MCG/ACT nasal spray Administer 2 sprays into each nostril Once per day. Shake gently. Before first use, prime pump. After use, clean tip and replace cap. 16 g 2 024 2024 Active traZODone (Desyrel) 100 MG tabletIndications :Primary insomnia Take 2 tablets (200 mg) by mouth at bedtime. 60 tablet 1 Active Ozempic, 1 MG/DOSE, 4 MG/3ML solution pen-injector INJECT 1mg SUBCUTANEOUSLY EACH WEEK Active Baqsimi Two Pack 3 MG/DOSE nasal powder SPRAY ONCE IN 1 NOSE two (2) times a day NEEDED FOR low glucose. USE 3 (THREE) TIMES A DAY FOR NAUSEA OR FOR VOMITING. maximum 6mg/day Active bacitracin 500 UNIT/GM ointment APPLY TO THE AFFECTED AREA two (2) times a day Active Ketostix strip USE 3 (THREE) TIMES A DAY NEEDED FOR glucose >250, FOR NAUSEA AND FOR VOMITING Active clotrimazole (Lotrimin) 1 % creamIndications: Onychomycosis APPLY TO THE AFFECTED AREA TOPICALLY ONCE DAILY Active atorvastatin (Lipitor) 20 MG tablet Take 1 tablet (20 mg) by mouth Once per day. 90 tablet 3 Active gabapentin (Neurontin) 300 MG capsuleIndication s:Type 2 diabetes mellitus with hyperglycemia (CMS/HCC) Take 1 capsule by mouth once daily 30 capsule 11 Active insulin degludec (Tresiba FlexTouch) 200 UNIT/ML injectionIndicati ons:Type 2 diabetes mellitus with hyperglycemia (CMS/HCC) INJECT 74 UNITS SUBCUTANEOUSLY ONCE DAILY 18 mL 3 Active insulin lispro (HumaLOG) 100 UNIT/ML injectionIndicati ons:Type 2 diabetes mellitus with hyperglycemia (CMS/HCC),longterm (current) use of insulin (CMS/HCC) Inject 24 Units under the skin with breakfast, with lunch, and with evening meal. 4 mL 2 Active lisinopril 10 MG tablet TAKE 1 TABLET BY MOUTH ONCE DAILY 90 tablet 3 Active pioglitazone (Actos) 15 MG tabletIndications :Type 2 diabetes mellitus with diabetic polyneuropathy (CMS/HCC) Take 1 tablet (15 mg) by mouth Once per day. 90 tablet 3 Active hydrOXYzine HCl (Atarax) 25 MG tabletIndications :Pruritus TAKE 1 TABLET BY MOUTH two (2) times a day NEEDED 60 tablet 2 Active omeprazole (PriLOSEC) [address] capsuleIndication s:Gastroesophagea l reflux disease, unspecified whether esophagitis present TAKE 1 CAPSULE BY MOUTH ONCE DAILY BEFORE BREAKFAST. not crush or chew 90 capsule 025 Active hydrOXYzine HCl (Atarax) 25 MG tabletIndications :Pruritus TAKE 1 TABLET BY MOUTH two (2) times a day NEEDED 60 tablet 2 024 2024 Discontinued omeprazole (PriLOSEC) [address] capsuleIndication s:Gastroesophagea l reflux disease, unspecified whether esophagitis present Take 1 capsule (40 mg) by mouth before breakfast. Do not crush or chew. 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 06/30/2024 Liver cirrhosis [...] Encounters Date Type Department Care Team Description 12/18/2024 Refill [facility] [address] [place] [phone] Renetta Gómez MD Gastroesophageal reflux disease, unspecified whether esophagitis present 12/18/2024 Orders Only GENERIC EXTERNAL DATA DEPARTMENT Provider, Generic External Data 12/16/2024 Refill [facility] [address] [place] [phone] Renetta Gómez MD Pruritus 11/24/2024 Population Health Risk Score [facility] ([facility]) Department [address] [phone] Provider, Population Health Generic 11/08/2024 Patient Outreach [facility] [address] [place] [phone] Renetta Gómez MD Care Coordination (CHW outreach for SDOH PT-1 and food needs-referral completed /) 11/08/2024 Telephone [facility] [address] [place] [phone] Renetta Gómez MD PT-1 10/24/2024 Telephone [facility] [address] [place] [address] [phone] Sarah Bernal ANP 10/17/2024 Orders Only GENERIC EXTERNAL DATA DEPARTMENT Provider, Generic External Data 10/06/2024 Orders Only GENERIC EXTERNAL DATA DEPARTMENT Provider, Generic External Data 10/05/2024 1:45 PM EST Office Visit [facility] [address] [place] [phone] Renetta Gómez MD Primary hypertension (Primary Dx); Type 2 diabetes mellitus with hyperglycemia, with long-term current use of insulin ([facility]); Right flank pain; UTI symptoms 10/05/2024 Travel from Last 3 Months Immunizations Name Administration [...] Description 04/10/2025 2:00 PM EDT Office Visit [facility] [address] [place] [address] Rj, Betina, OD [address] [place] [address] Health Maintenance Due Date Last Done Comments CT Colonography 1970 FIT DNA/Cologuard 1970 FIT 1970 FOBT 1970 Sigmoidoscopy 1970 Diabetes: Foot Exam 1980 Alcohol/Substance Use Screening 1982 Depression Screening 04/06/2024 04/06/2023, 04/06/20 23 COVID-19 Vaccine ( season) 2024 08/04/2022, 08/29/2021, 01/22/2021, Additional history exists Diabetes: Hemoglobin A1C 04/04/2025 025, 03/15/2024, 11/15/2023, Additional history exists Cervical Cancer Screening 05/08/2025 HPV/Cotest 05/08/2025 05/08/2020, 02/10/2019 Pap Smear 05/08/2025 05/08/2020 Mammogram 05/12/2025 05/12/2024, 04/14, 12/30/2020, Additional history exists Eye Exam 06/02/2025 06/02/2024, 05/15, 06/02/2024, Additional history exists Diabetes: Urine Protein Screening 07/12/2025 07/12/2024, 07/02/2023, 12/06/2020, Additional history exists Lipid Panel 07/12/2025 07/12/2024, 04/13, 08/04/2022, Additional history exists SDOH Screening 09/25/2025 09/25/2024 Tobacco Screening 10/05/2025 10/05/2024 Colonoscopy 09/15/2027 09/15/2022 Colorectal Cancer Screening 09/15/2027 DTaP/Tdap/Td Vaccines (2 [...] Associated Diagnosis Comments GLUCOSE, WHOLE BLOOD Routine 12/18/2024 6:37 AM EDT CBC Routine 12/18/2024 6:24 AM EDT PROTHROMBIN TIME-INR Routine 12/18/2024 6:24 AM EDT T4, FREE Routine 10/17/2024 10:54 AM EST [...] hyperglycemia, with long-term current use of insulin ([facility]) POCT GLUCOSE Routine 10/05/2024 1:26 PM EST Type 2 diabetes mellitus with hyperglycemia, with long-term current use of insulin ([facility]) LIPID PANEL, STANDARD Routine 07/12/2024 10:54 AM EDT ALBUMIN, RANDOM URINE W/CREATININE Routine 07/12/2024 10:52 AM EDT BI MAMMOGRAM SCREENING TOMOSYNTHESIS BILATERAL Routine 05/12/2024 10:15 AM EDT Encounter for screening mammogram for malignant neoplasm of breast HIV ANTIBODY/ANTIGEN ([place] [facility]) Routine 07/02/2023 8:37 AM EDT HM COLONOSCOPY Routine 09/15/2022 ZZZ HISTORICAL HEPATITIS A,B,C PROFILE Routine 08/11/2022 11:00 AM EST EfrenZZ HISTORICAL HPV DNA, HIGH RISK, CERVICAL Routine 05/08/2020 3:09 PM EDT THINPREP IMAGING SYSTEM PAP Routine 05/08/2020 3:09 PM EDT from Last 3 Months or Most Recently Relevant to Health Maintenance Results * (ABNORMAL) Glucose, Whole Blood (12/18/2024 6:37 AM EDT) Glucose, Whole Blood 123(H) 60 - 115 mg/dL [facility] Comment:METER #: [id number] 12/18/2024 6:37 AM EDT 12/18/2024 6:41 AM EDT us Generic External Data Provider LAB BLOOD ORDERAB LES Final Result Performing Organization Address [facility] de Phone Number [facility] [address] [place] [phone] * (ABNORMAL) Prothrombin Time-INR (12/18/2024 6:24 AM EDT) Prothrombin Time 15.2(H) 10.9 - 12.4 SEC [facility] INTERNATIONAL NORM RATIO 1.3(H) 0.9 - 1.1 [facility] Comment:INTERNATIONAL NORMAL IZED RATIO (INR) REFERENCE RANGES Reference RangeFor patients not on anticoagulant therapy: 0.9 - 1.1INR ranges for oral anticoagulanttherapy:For prevention and treatment of venous thrombosis and pulmonary embolism: 2.0 - 3.0For acute myocardial infarction with aspirin therapy: 2.0 - 3.0For acute myocardial infarction without aspirin therapy: 3.0 - 4.0For patients with mechanical prosthetic heart valves: 2.5 - 3.5 12/18/2024 6:24 AM EDT 12/18/2024 6:26 AM EDT us Generic External Data Provider LAB BLOOD ORDERAB LES Final Result Performing Organization Address [facility] Co de Phone Number [facility] [address] [place] [phone] * (ABNORMAL) CBC (12/18/2024 6:24 AM EDT) White Blood Count 5.7 4.8 - 10.8 X10*3/uL [facility] Red Blood Count 4.63 4.20 - 5.50 X10*6/uL [facility] Hemoglobin 14.1 12.0 - 16.0 g/dl [facility] Hematocrit 41.5 37.0 - 47.0 % [facility] Mean Corpuscular Volume 89.6 80.0 - 98.0 fL [facility] Mean Corpuscular Hemoglobin 30.5 27.0 - 33.0 pg [facility] Mean Corpuscular HGB Conc 34.0 31.0 - 35.0 g/dl [facility] Red Cell Distribution Width 13.8 11.0 - 16.0 % [facility] Platelet Count 85(L) 160 - 400 X10*3/uL [facility] Mean Platelet Volume 11.6 9.4 - 12.3 fL [facility] NRBC Pct Auto 0.0 0.0 - 0.2 /100WBC [facility] NRBC Abs Auto 0.000 0.0 - 0.012 X10*3/uL [facility] 12/18/2024 6:24 AM EDT 12/18/2024 6:26 AM EDT us Generic External Data Provider LAB BLOOD ORDERAB LES Final Result [facility] [address] [place] [phone] * TSH (10/17/2024 10:54 AM EST) Pathologist [facility] Thyroid Stimulating Hormone 1.85 0.32 - 4.0 uIU/mL [facility] Comment:TSH 3rd Generation ( [facility]) 10/17/2024 10:5 4 AM EST 10/17/2024 10:54 AM EST us Generic External Data Provider LAB BLOOD ORDERAB LES Final Result Performing Organization Address City/[facility]/ZIP Co de Phone Number [facility] [address] [place] [phone] * T4, Free (10/17/2024 10:54 AM EST) Free T4 (Free Thyroxine) 1.09 0.71 - 1.85 ng/dL [facility] 10/17/2024 10:5 4 AM EST 10/17/2024 10:54 AM EST Generic External Data Provider LAB BLOOD ORDERAB LES Final Result Performing Organization Address [facility] de Phone Number [facility] [address] [place] [phone] * (ABNORMAL) Basic Metabolic Panel (10/17/2024 10:54 AM EST) Pathologist [facility] Sodium 142 135 - 145 mmol/L [facility] Potassium 4.6 3.3 - 5.1 mmol/L [facility] Chloride 108 96 - 108 mmol/L [facility] Carbon Dioxide 28 22 - 29 mmol/L [facility] Anion Gap 11(L) 12 - 20 [facility] Urea Nitrogen (BUN) 15 9 - 16 mg/dL [facility] Creatinine, Serum 0.89 0.5 - 1.4 mg/dL [facility] Estimated Glomerular Filt Rate >60 [facility] Comment:Chronic Kidney Disea se: Estimated GFR < 60 mL/min/1.27q1Giolek Kidney Disease: Estimated GFR < 15 mL/min/1.73m2 Glucose 185(H) 60 - 115 mg/dL [facility] Calcium 9.5 8.4 - 10.2 mg/dL [facility] Blood Venous blood specimen / Unknown 10/17/2024 10:54 AM EST 10/17/2024 10:54 AM EST Sarah Bernal [facility] LAB BLOOD ORDERABLES Final Resul t Performing Organization Address [facility]/ZIP Co de Phone Number [facility] [address] [place] [phone] * Glucose, Whole Blood (10/06/2024 1:59 PM EST) Glucose, Whole Blood 76 60 - 115 mg/dL [facility] Comment:METER #: [id number] Testing performed in the Endocrinology Department [address] , [address], [facility]. 10/06/2024 1:59 PM EST 10/06/2024 2:13 PM EST Generic External Data Provider LAB BLOOD ORDERAB LES Final Result Performing Organization Address [facility] Co de Phone Number [facility] [address] [place] [phone] * POCT Urinalysis (10/05/2024 2:08 PM EST) Color, UA [place] Clarity, UA Turbid Glucose, UA Negative Bilirubin, UA Trace Comment:SMALL Ketones, UA Negative Spec Grav, UA 1.030 Blood, UA Negative Negative, None Detected pH, UA 5.0 Protein, UA Trace Comment:30MG Urobilinogen, UA 1.0 Leukocytes, UA Negative Negative, Rare, Trace Nitrite, UA Negative Negative, None Detected Appearance, UA CLOUDY QC Media Lot # [id number] Lot# Expiration Date ,025 Urine 10/05/2024 2:08 PM EST us Renetta Pedro MD POINT OF CARE TEST EN TER/EDIT ORDERABLES Final Result * Culture, Urine, Routine (10/05/2024 1:54 PM EST) Urine Urine specimen obtained by clean catch procedure / Unknown 10/05/2024 1:54 PM EST 10/05/2024 5:02 PM EST Comment:UACC Narrative [facility] - 10/07/2024 8:59 AM EST Urine Culture No growth. Specimen Source: Urine clean catch Renetta Pedro MD LAB MICROBIOLOGY - GE NERAL ORDERABLES Final Result [facility] [address] [place] [phone] [phone] * (ABNORMAL) POCT HGB A1C (10/05/2024 [...] 10:54 AM EDT) Triglycerides 170(H) <150 mg/dL [facility] Comment:Desirable Triglyceri de: less than 150 mg/dLBorderline High Triglyceride 150-199 mg/dLHigh Triglyceride: 200-499 mg/dLVery High Triglyceride: greater than or equal to 5OO mg/dL Cholesterol 179 <200 mg/dL [facility] Comment:Desirable Cholestero l: less than 200 mg/dLBorderline High Cholesterol: 200-239 mg/dLHigh Cholesterol: greater than 239 mg/dL LDL Cholesterol Calculated 109(H) <100 mg/dL [facility] Comment:Desirable LDL: less than 100 mg/dLNear Optimal/Above Optimal LDL: 110- 129 mg/dLBorderline High LDL: 130-159 mg/dLHigh LDL: 160-189 mg/dLVery High LDL: greater than or equal to 190 mg/dL HDL Cholesterol 36(L) >40 mg/dL [facility] Comment:Desirable HDL: great er than 40 mg/dL Note: This HDL assay may give artificially low results in patients with liver disease. 07/12/2024 10:5 4 AM EDT 07/12/2024 10:54 AM EDT Generic External Data Provider LAB BLOOD ORDERAB LES Final Result Performing Organization Address City/[facility]/ZIP Co de Phone Number [facility] [address] [place] [address] [phone] * Albumin, Random Urine W/Creatinine (07/12/2024 10:52 AM EDT) Creatinine, Urine 269.94 mg/dL [facility] Microalbumin Urine 33.0 mg/L [facility] Microalbum Creatinine Ratio Ur 12.2 <30 ug/mg cr [facility] Comment:Albumin/Creatinine R atio Reference Ranges: Normal: < 30 ug/mg creatinine Microalbuminuria: 30 - 300 ug/mg creatinineClinical Albuminuria: > 300 ug/mg creatinine 07/12/2024 10:5 2 AM EDT 07/12/2024 11:37 AM EDT us Generic External Data Provider LAB URINE ORDERAB LES Final Result Performing Organization Address [facility]/ZIP Co de Phone Number [facility] [address] [place] [address] [phone] * BI Mammogram Screening Tomosynthesis Bilateral (05/12/2024 10:15 AM EDT) Anatomical Region Laterality Modality Breast Bilateral Mammography 05/12/2024 10:1 5 AM EDT Narrative 06/02/2024 10:40 PM EDT ? [facility] ? [address] ?[place] [address] ? Mammography Report ? Signed ? Patient: Chasity David,Renata ?MR#: [id number] ?? [id number] ? : 1970 ?Acct:[id number] ? Age/Sex: 54 / F ?ADM Date: 05/12/24 ? Loc: HO.MAMMO ? Attending Dr: Renetta Pedro MD ? Ordering Physician: Renetta Gómez MD ?Results: ?? 1Negative ? Date of Service: 05/12/24 ?Follow Up: 1 Year From Orig ?? inal Mammogram ? Procedure(s): MM tomosynthesis screening BI ?? Accession Number(s): [id number] ? cc: Renetta Gómez MD ? EXAMINATION: [...] ??Beth Milian DO ??06/02/2024 10:37 PM EDT ? Dictated By: ?Beth Milian DO ? Signed By: ?<Electronically signed by Beth Milian, DO in OV> ? 06/02/242236 ? DD/ 1015 ? TD/TT: 05/12/24 1030 ? Insole Rounder: ? Procedure Note Ricki, Image - 06/02/2024 [facility] [address] [place] [address] Mammography Report Signed Patient: Julia Gusman#: [id number] : 1970Acct:[id number] Age/Sex: 54 / FADM Date: 05/12/24 Loc: HO.MAMMO Attending Dr: Renetta Pedro MD Ordering Physician: Renetta Gómez MDResults: 1Negative Date of Service: 05/12/24Follow Up: 1 Year From Orig inal Mammogram Procedure(s): MM tomosynthesis screening BI Accession Number(s): [id number] cc: Renetta Gómez MD EXAMINATION: MM SCREENING [...] Beth Milian DO 06/02/2024 10:37 PM EDT RP Dictated By: Beth Milian DO Signed By: <Electronically signed by Beth Milian DO in OV> 06/02/24 2237 DD/ 1015 TD/TT: 05/12/24 1030 Insole Rounder: Renetta Pedro MD IMG BI PROCEDURES Nael aftab Result - Final * HIV Ab/Ag ([place] [facility]) (07/02/2023 8:37 AM EDT) HIV AB/AG Nonreactive Nonreactive [facility] Comment:HIV-1 p24 Ag and/or HIV-1/HIV-2 Ab not detected.A test result that is nonreactive does not exclude thepossibility of exposure to or infection with HIV-1 and/orHIV-2. Nonreactive results in this assay for individualswith prior exposure to HIV-1 and/or HIV-2 may be due toantigen and antibody levels that are below the limit ofdetection of this assay.The [email or web address] HIV Ag/Ab Combo assay result andsupplemental assay results should be interpreted inconjunction with the patient's clinical presentation,history and other laboratory results. If the results areinconsistent with clinical evidence, additional testing issuggested to confirm the result. 07/02/2023 8:37 AM EDT 07/02/2023 11:24 AM EDT Renetta Pedro MD LAB BLOOD ORDERABLES Final Result [facility] [address] [place] [address] [phone] * Hm Colonoscopy (09/15/2022) Colonoscopy Normal Normal Narrative Celia Centeno - 09/15/2022 Repeat Colonoscopy in 5 years due to fair prep or earlier if clinically indicated . See external hospital admission note on 09/15/2022(book marked ) Result [facility] Historical Provider HEALTH MAINTENANCE Final Result * Hepatitis A,B,C Profile (08/11/2022 11:00 AM [...] HCV infection. 08/11/2022 11:0 0 AM EST Result [facility] Historical Provider HISTORICAL/NON ORDERABLE LABS Final Result CONVERTED LEGACY LABS * HPV DNA, HIGH RISK, CERVICAL (05/08/2020 3:09 PM EDT) HPV DNA, HIGH RISK, CERVICAL Not Detected NOT DETECTED [facility] Comment: Not Detected ?? High Risk HPV types (16,18,31,33,35,39,45,51,52, 56,58,59,66,68) were not detected. Other HPV types which cause anogenital lesions may be present. The significance of the other types of HPV in malignant processes has not been established. ?? Methodology: Real Time PCR ? 05/08/2020 3:09 PM EDT Renetta Pedro MD HISTORICAL/NON ORDERA BLE LABS Final Result Performing Organization Address [facility] Co de Phone Number [facility] [address] * THINPREP TIS PAP (05/08/2020 3:09 [...] has been evaluated with computer assisted technology. Sign Artist: SEE COMMENT [facility] Comment: LT, CT(ASCP) CT screening location: [address] ??[phone] Infection [facility] Comment: Shift in vaginal zeina suggestive of bacterial vaginosis. Interpretation/Resu lt: SEE COMMENT [facility] Comment:Negative for intraep ithelial lesion or malignancy. LMP: [facility] Comment:NONE GIVEN Prev. BX: NONE GIVEN [facility] Prev. PAP: [facility] Comment:NONE GIVEN SOURCE: [facility] Comment:None given Statement Of Adequacy: SEE COMMENT [facility] Comment: Satisfactory for evaluation. Endocervical/transformation zone component present. Age and/or menstrual status not provided 05/08/2020 3:09 PM EDT Renetta Pedro MD LAB PATHOLOGY ORDERAB LES Final Result Performing Organization Address [facility] Co de Phone Number [facility] [address] from Last 3 Months or Most Recently Relevant to Health Maintenance Insurance * Guarantor: Renata Gusman Account Type Relation to Patient Date of Phone Billing Address Personal/Family Self 1970 [address] [place] [address] [facility] C3 * Guarantor: Renata Gusman Account Type Relation to Patient Date of Phone Billing Address Personal/Family Self [address] [place] [address] * Guarantor: Renata Gusman Account Type Relation to Patient Date of Phone Billing Address Personal/Family Self [address] [place] [address] * Guarantor: Renata Gusman Account Type Relation to Patient Date of Phone Billing Address Personal/Family Self [address] [place] [address] Care Teams Substance Abuse Services Director Relationship Specialty Start Date End Date Renetta Gómez MD [address] [place] [address] PCP - General Family Medicine 12/29/18
--- OUTSIDE RECORDS SUMMARY | 2025-01-03 18:13 | XMS_ITS | Encounter Summary ---
Author Organization [employer] Address 75 [facility] 7t [place] [address] Care Team Providers Care Director Regulatory Agency Name Role Phone Renetta Gómez MD Primary Care Provide r Reason for Visit * Reason Onset Date Comments PT1 05/24/2024 Encounter Details Date Type Department Care Team ([facility] st Contact Info) Description 05/24/2024 Telephone [facility] MEDICINE [address] [place], [place] [phone] Renetta Gómez MD 230 [place] [address] PT1 Social History Tobacco Use Types Packs/Day [...] facility name: Ed Cowart DPM Facility Address: [address] [place] [address] Escort needed: Y/N: Yes Do you have a wheelchair: Y/N: No If yes- Manual or electric: Visits: 4-5 visits a year documented in this encounter Plan of Treatment Upcoming Encounters Date Type Department Care Team (Late st Contact Info) Description 04/10/2025 2:00 PM EDT Office Visit [facility] OPTOMETRY [address] [place] [address] Rj, Betina, OD 230 [place] [address] documented as of this encounter Visit Diagnoses Not on filedocumented in this encounter Additional Health Concerns Assessment Noted Time PHQ-9 Depression Total Score: 0 04/06/20 23 10:11 AM EDT documented as of this encounter Care Teams Director Regulatory Agency Relationship Specialty Start Date End Date Renetta Gómez MD 230 [place] [address] PCP - General Family Medicine 12/29/18 documented as of this encounter
--- OUTSIDE RECORDS SUMMARY | 2025-01-03 18:13 | XMS_ITS | Encounter Summary ---
Author Organization [employer] Address 75 [facility] 7t [place] [address] Care Team Providers Care Paper Wood Cutter Name Role Phone Renetta Gómez MD Primary Care Provide r Reason for Visit * Reason Onset Date Comments PT1 03/21/2024 Encounter Details Date Type Department Care Team ([facility] st Contact Info) Description 03/21/2024 Telephone [facility] MEDICINE 230 [place], [place] [phone] Renetta Gómez MD 230 [place] [address] PT1 Social History Tobacco Use Types Packs/Day [...] facility name: Dr.Allison Bennett Facility Address: [address] [place] [address], [place] Escort needed: Y/N: Yes Do you have a wheelchair: no If yes- Manual or electric: no Visits: 4 Patient calling requesting PT1 Home Address verified: Y/N: Yes Provider name or facility name: Dr.Corina Leon Facility Address: [address] Escort needed: Y/N: Yes Do you have a wheelchair: Y/N: No If yes- Manual or electric: no Visits: 4 Patient calling requesting PT1 Home Address verified: Y/N: Yes Provider name or facility name: Dr. Ele Esparza Facility Address: [address] [place] [address], [place] Escort needed: Y/N: Yes Do you have a wheelchair: Y/N: No If yes- Manual or electric: no Visits: 4 Patient calling requesting PT1 Home Address verified: Y/N: No Provider name or facility name: Dr. Margie Hugo Facility Address: [address], [place] Escort needed: Y/N: Yes Do you have a wheelchair: Y/N: No If yes- Manual or electric: no Visits: 4 * Telephone Encounter - Emily Rodriguez - 03/21/2024 12:28 PM EDT Patient calling requesting PT1 Home Address verified: Y/N: Yes Provider name or facility name: [facility] Facility Address: [address], Escort needed: Y/N: Yes Do you have a wheelchair: Y/N: No If yes- Manual or electric: NO Visits: ALL FUTURE APPTS documented in this encounter Plan of Treatment Upcoming Encounters Date Type Department Care Team (Late st Contact Info) Description 04/10/2025 2:00 PM EDT Office Visit [facility] OPTOMETRY [address] [place] [address] Betina De La Rosa, OD [address] [place] [address] documented as of this encounter Visit Diagnoses Not on filedocumented in this encounter Additional Health Concerns Assessment Noted Time PHQ-9 Depression Total Score: 0 04/06/20 23 10:11 AM EDT documented as of this encounter Care Teams Paper Wood Cutter Relationship Specialty Start Date End Date Renetta Gómez MD [address] [place] [address] PCP - General Family Medicine 12/29/18 documented as of this encounter
== END 2025-01-03 17:41 | disposition home or self-care (01) ==
LOC: HO.HOS 15:36
PROVIDERS: PCP Internal Medicine
DX: R09.89 Other specified symptoms and signs involving the circulatory and respiratory systems (principal); G56.01 Carpal tunnel syndrome, right upper limb; G56.21 Lesion of ulnar nerve, right upper limb
CPT/HCPCS: 99024

== ENCOUNTER → 2025-01-03 15:36 | Outpatient (BNVA) | payer MEDICAID, SELFPAY | PROVIDERS: PCP Internal Medicine | DX: R09.89 Other specified symptoms and signs involving the circulatory and respiratory systems (principal); Z48.811 Encounter for surgical aftercare following surgery on the nervous system; Z98.890 Other specified postprocedural states | CPT/HCPCS: 99212 ==

== ENCOUNTER 2025-01-11 12:10 | Outpatient (REF) | payer MEDICAID, SELFPAY | END 2025-01-11 12:11 | disposition home or self-care (01) | LOC: HO.US 12:10 | PROVIDERS: PCP Internal Medicine | DX: Z13.89 Encounter for screening for other disorder (principal) ==

== ENCOUNTER 2025-01-19 09:42 | Outpatient (REF) | payer MEDICAID, SELFPAY ==
--- NOTE | ~2025-01-19 | US_ITS ---
CLINICAL HISTORY: R09.89 - Other specified symptoms and signs involving the circulatory an... --- Add itional Notes or Special Instructions: Delayed capillary refilling coolness to touch of right upper e xtremity Right upper extremity duplex arterial Doppler Comparison: None Technique: Grayscale/Color and duplex Doppler sonographic evaluation of the arterial system within the right upper extremity. Peak systolic velocities recorded in centimeters per second. Findings: Right upper extremity Subclavian: Biphasic. 118.0 cm/s Axillary: Triphasic. 91.3cm/s Brachial artery: Triphasic. 73.2 cm/s Ulnar artery: Biphasic. 18.7 cm/s Radial artery: Triphasic. 71.8 cm/s Impression: 1. Triphasic and biphasic flow demonstrated. 2. No occlusive disease demonstrated This document has been electronically signed by: Francisco Mendoza MD on 01/19/2025 15:49:22
--- OUTSIDE RECORDS SUMMARY | 2025-01-19 10:03 | XMS_ITS | Encounter Summary ---
Author Organization [employer] Address [address] [facility] 7t [place] [address] Care Team Providers Care Licensed Embalmer Name Role Phone Renetta Gómez MD Primary Care Provide r Reason for Visit * Reason Onset Date Comments PT1 05/24/2024 Encounter Details Date Type Department Care Team ([facility] st Contact Info) Description 05/24/2024 Telephone [facility] MEDICINE 230 [place], [place] [phone] Renetta Gómez MD 230 [place] [address] PT1 Social History Tobacco Use Types Packs/Day [...] facility name: Ed Cowart DPM Facility Address: [address] [place] [address] [place] [address] Escort needed: Y/N: Yes Do you have a wheelchair: Y/N: No If yes- Manual or electric: Visits: 4-5 visits a year documented in this encounter Plan of Treatment Upcoming Encounters Date Type Department Care Team (Late st Contact Info) Description 04/10/2025 2:00 PM EDT Office Visit [facility] OPTOMETRY [address] [place] [address] Rj, Betina, OD [address] [place] [address] documented as of this encounter Visit Diagnoses Not on filedocumented in this encounter Additional Health Concerns Assessment Noted Time PHQ-9 Depression Total Score: 0 04/06/20 23 10:11 AM EDT documented as of this encounter Care Teams Licensed Embalmer Relationship Specialty Start Date End Date Renetta Gómez MD [address] [place], [place] [phone] PCP - General Family Medicine 12/29/18 documented as of this encounter
--- OUTSIDE RECORDS SUMMARY | 2025-01-19 10:03 | XMS_ITS | Encounter Summary ---
Author Organization [employer] Address [address] [facility] 7t [place] [address] Care Team Providers Care Mime Artist Name Role Phone Renetta Gómez MD Primary Care Provide r Encounter Details Date Type Department Care Team (Late Contact Info) Description 06/16/2023 Orders Only [facility] CHC MED & PEDS [address] [place], [place] [phone] Lizbeth Navarro LPN Social History Tobacco Use [...] Description 04/10/2025 2:00 PM EDT Office Visit [facility] OPTOMETRY [address] [place] [address] Rj, Betina, OD [address] [place], [place] [phone] documented as of this encounter Visit Diagnoses Not on filedocumented in this encounter Additional Health Concerns Assessment Noted Time PHQ-9 Depression Total Score: 0 04/06/20 23 10:11 AM EDT documented as of this encounter Care Teams Mime Artist Relationship Specialty Start Date End Date Renetta Gómez MD 230 [place] [address] PCP - General Family Medicine 12/29/18 documented as of this encounter
--- OUTSIDE RECORDS SUMMARY | 2025-01-19 10:03 | XMS_ITS | Encounter Summary ---
Author Organization [employer] Address 75 [facility] 7t [place] [address] Care Team Providers Care Limousine Rental Clerk Name Role Phone Renetta Gómez MD Primary Care Provide r Reason for Visit * Reason Onset Date Comments PT1 03/21/2024 Encounter Details Date Type Department Care Team ([facility] st Contact Info) Description 03/21/2024 Telephone [facility] MEDICINE 230 [place], [place] [phone] Renetta Gómez MD 230 [place] [address] PT1 Social History Tobacco Use Types Packs/Day [...] facility name: Dr.Allison Bennett Facility Address: [address] [place], [place] Escort needed: Y/N: Yes Do you have a wheelchair: no If yes- Manual or electric: no Visits: 4 Patient calling requesting PT1 Home Address verified: Y/N: Yes Provider name or facility name: Dr.Corina Leon Facility Address: [address] [place], [place] Escort needed: Y/N: Yes Do you have a wheelchair: Y/N: No If yes- Manual or electric: no Visits: 4 Patient calling requesting PT1 Home Address verified: Y/N: Yes Provider name or facility name: Dr. Ele Esparza Facility Address: [address] [place], [place] Escort needed: Y/N: Yes Do you have a wheelchair: Y/N: No If yes- Manual or electric: no Visits: 4 Patient calling requesting PT1 Home Address verified: Y/N: No Provider name or facility name: Dr. Margie Hugo Facility Address: [address] [place], [place] Escort needed: Y/N: Yes Do you have a wheelchair: Y/N: No If yes- Manual or electric: no Visits: 4 * Telephone Encounter - Emily Rodriguez - 03/21/2024 12:28 PM EDT Patient calling requesting PT1 Home Address verified: Y/N: Yes Provider name or facility name: [facility] Facility Address: [address] [facility], Escort needed: Y/N: Yes Do you have a wheelchair: Y/N: No If yes- Manual or electric: NO Visits: ALL FUTURE APPTS documented in this encounter Plan of Treatment Upcoming Encounters Date Type Department Care Team (Late st Contact Info) Description 04/10/2025 2:00 PM EDT Office Visit [facility] OPTOMETRY [address] [place] [address] Rj, Betina, OD 230 [place] [address] documented as of this encounter Visit Diagnoses Not on filedocumented in this encounter Additional Health Concerns Assessment Noted Time PHQ-9 Depression Total Score: 0 04/06/20 23 10:11 AM EDT documented as of this encounter Care Teams Limousine Rental Clerk Relationship Specialty Start Date End Date Renetta Gómez MD 230 [place] [address] PCP - General Family Medicine 12/29/18 documented as of this encounter
--- OUTSIDE RECORDS SUMMARY | 2025-01-19 10:03 | XMS_ITS | Encounter Summary ---
Author Organization [facility] [facility] Address [address] [place] [address] 7t [place] [address] Care Team Providers Care Seconds Inspector Name Role Phone Renetta Gómez MD Primary Care Provide r Reason for Visit * Reason Comments Med Refill Encounter Details Date Type Department Care Team (Late Contact Info) Description 03/24/2023 Refill [facility]INE [address] [place] [address] Roxana Quinonez MD [address] [place] [address] Social History Tobacco Use Types Packs/Day Years [...] Description 04/10/2025 2:00 PM EDT Office Visit [facility] OPTOMETRY [address] [place] [address] Betina De La Rosa, OD 230 [place] [address] documented as of this encounter Visit Diagnoses Not on filedocumented in this encounter Care Teams Seconds Inspector Relationship Specialty Start Date End Date Renetta Gómez MD 230 [place] [address] PCP - General Family Medicine 12/29/18 documented as of this encounter
--- OUTSIDE RECORDS SUMMARY | 2025-01-19 10:03 | XMS_ITS | Encounter Summary ---
Author Organization [employer] Address [address] [facility] 7t [place] [address] Care Team Providers Care Gamma Ray Operator Name Role Phone Renetta Gómez MD Primary Care Provide r Encounter Details Date Type Department Care Team (Late st Contact Info) Description 11/10/2022 Orders Only [facility]C MED & PEDS [address] [place] [address] Lizbeth Navarro LPN Social History Tobacco Use [...] Description 04/10/2025 2:00 PM EDT Office Visit [facility] OPTOMETRY [address] [place] [address] Betina De La Rosa, OD 230 [place] [address] documented as of this encounter Visit Diagnoses Not on filedocumented in this encounter Care Teams Gamma Ray Operator Relationship Specialty Start Date End Date Renetta Gómez MD 230 [place] [address] PCP - General Family Medicine 12/29/18 documented as of this encounter
--- OUTSIDE RECORDS SUMMARY | 2025-01-19 10:03 | XMS_ITS | Encounter Summary ---
Author Organization [employer] Address [address] [facility] 7t [place] [address] Care Team Providers Care Floor Cashier Name Role Phone Renetta Gómez MD Primary Care Provide r Reason for Visit * Reason Comments Med Refill Encounter Details Date Type Department Care Team (Late Contact Info) Description 12/02/2022 Refill [facility]C MED & PEDS [address] [place], [place] [phone] Fannie Ceron MD 230 [place] [address] Type 2 diabetes mellitus without complication, unspecified whether fdc insulin use (CMS/HCC) Social History Tobacco Use [...] Description 04/10/2025 2:00 PM EDT Office Visit [facility] OPTOMETRY [address] [place], [place] [phone] Betina De La Rosa OD 230 [place] [address] documented as of this encounter Visit Diagnoses Diagnosis Type 2 diabetes mellitus without complication, unspecified whether fdc insulin use (CMS/HCC) documented in this encounter Care Teams Floor Cashier Relationship Specialty Start Date End Date Renetta Gómez MD [address] [place] [address] PCP - General Family Medicine 12/29/18 documented as of this encounter
--- OUTSIDE RECORDS SUMMARY | 2025-01-19 10:03 | XMS_ITS | Encounter Summary ---
Author Organization [facility] Address [address] [place] [address] Care Team Providers Care Police Liaison Name Role Phone Renetta Gómez MD Primary Care Provide r Reason for Visit * Reason Comments Follow-up DM Foot Care Encounter Details Date Type Department Care Team (Late st Contact Info) Description 01/16/2025 1:00 PM EDT Office Visit [facility] [place] [address] [phone] Ed Cowart DPM [address] [address] Dermatophytosis of nail (Primary Dx); Diabetic mononeuropathy simplex ([facility] V24, [facility] V28); Acquired hammer toe of right foot; Hammer toe of left foot; Type II diabetes mellitus with peripheral circulatory disorder ([facility] V24, [facility] V28) Social History Tobacco Use Types Packs/Day Years Used Date Smoking Tobacco: Never Assessed Comments Unknown Sex and Gender Information Value Date Recorded Sex Assigned at Not on file Legal Sex Female 8:18 PM EST Gender Identity Not on file Sexual Orientation Not on file documented as of this encounter Ordered Prescriptions Prescription Sig Dispense Quantity Refills Last Filled Start Date End Date ketoconazole (NIZORAL) 2 % cream Apply topically 1 (one) time each day. 30 g 2 01/16/2025 documented in this encounter Progress Notes * Ed Cowart DPM - 01/16/2025 1:00 PM EDT S: Patient presents for evaluation of her [...] is wanting something different could be prescribed reports the last prescription was not well covered by insurance and she does not want to use that topical medication japanese interpreter was utilized for this encounter [id number] ROS: GENERAL: Pt denies nausea, fever, vomiting, [...] Pruritus L29.9 T2DM (type 2 diabetes mellitus) ([facility]) E11.9 Right hand pain M79.641 SOCIAL HISTORY: [...] Dermatophytosis of nail 2. Diabetic mononeuropathy simplex ([facility] V24, [facility] V28) 3. Acquired hammer toe of right foot 4. Hammer toe of left foot 5. Type II diabetes mellitus with peripheral circulatory disorder ([facility] V24, [facility] V28) PLAN: Pt was seen and examined, history [...] and symptoms of neuropathy with the patient Ketoconazole prescribed as patient is not bathing topical secondary to coverage Biopsy results reviewed positive for onychomycosis Oral [...] diabetic shoes were offeredpatient declined Follow-up in 1-3 month Ed Cowart DPM documented in this encounter Plan of Treatment Upcoming Encounters Date Type Department Care Team ([facility] st Contact Info) Description 04/18/2025 1:45 PM EDT Office Visit [facility] - [place] 250 175 [facility] [address] [place] [address] Ed Cowart, DPM 175 [facility] [address] [place] [address] documented as of this encounter Visit Diagnoses Diagnosis Dermatophytosis of nail- Primary Diabetic mononeuropathy simplex ([facility] V24, [facility] V28) Type II or unspecified type diabetes mellitus with neurological manifestations, not stated as uncontrolled Acquired hammer toe of right foot Hammer toe of left foot Type II diabetes mellitus with peripheral circulatory disorder ([facility] V24, [facility] V28) Type II or unspecified type diabetes mellitus with peripheral circulatory disorders, not stated as uncontrolled documented in this encounter Care Teams Police Liaison Relationship Specialty Start Date End Date Renetta Gómez MD [address] [phone] PCP - General 08/25/23 documented as of this encounter
--- OUTSIDE RECORDS SUMMARY | 2025-01-19 10:03 | XMS_ITS | Clinical Summary ---
Author Organization [employer] Address [address] [facility] 7t [place] [address] Care Team Providers Care Senior Sql Database Developer Name Role Phone Renetta Gómez MD Primary Care Provide r Allergies Active Allergy Reactions Criticality Noted Date Comments Acetaminophen 12/29/2018 Other reaction(s): Hives / Skin Rash Codeine 12/29/2018 Other reaction(s): Hives / Skin Rash Shellfish Allergy Angioedema High 12/09/2023 Can eat clams and fish Medications FREESTYLE LITE test stripIndications:T ype 2 diabetes mellitus without complication, unspecified whether watermelon inspector insulin use ([facility]) USE TO TEST FINGER STICK [...] bedtime. 06/11/20 23 Active Continuous Blood Gluc Machinist Linotype (FreeStyle Oren 2 [place]) deviceIndications: Type 2 diabetes mellitus with hyperglycemia, with long-term current use of insulin ([facility]) Scan sensor every 8 hours 1 each 07/01/20 23 Active Continuous Blood Gluc Sensor (FreeStyle Oren 2 Sensor) miscIndications:Ty pe 2 diabetes mellitus with hyperglycemia, with long-term current use of insulin ([facility]) Apply 1 sensor every 14 days 2 each 07/01/20 23 Active Trulicity 4.5 MG/0.5ML solution pen-injectorIndica tions:Type 2 diabetes mellitus with hyperglycemia ([facility]) INJECT 4.5 mg SUBCUTANEOUSLY EVERY WEEK 2 mL 3 10/06/19 24 Active EPINEPHrine (Epipen) 0.3 MG/0.3ML injection syringeIndications :Seafood allergy Inject 0.3 mL (0.3 mg) as directed 1 (one) time if needed for anaphylaxis. Inject into upper leg. Call 911 after use. 2 each 12/09/19 24 Active levothyroxine (Synthroid, Levoxyl) 25 MCG tabletIndications: Hypothyroidism, unspecified type TAKE 1 TABLET BY MOUTH [...] 24 025 Active traZODone (Desyrel) 100 MG tabletIndications: Primary insomnia Take 2 tablets (200 mg) by [...] 04/11/20 24 Active clotrimazole (Lotrimin) 1 % creamIndications:O nychomycosis APPLY TO THE AFFECTED AREA TOPICALLY ONCE DAILY 06/14/20 24 Active atorvastatin (Lipitor) 20 MG tablet Take 1 tablet (20 mg) by mouth Once per day. 90 tablet 3 08/07/20 24 Active gabapentin (Neurontin) 300 MG capsuleIndications :Type 2 diabetes mellitus with hyperglycemia (CMS/HCC) Take 1 capsule by mouth once daily 30 capsule 11 08/07/20 24 Active insulin degludec (Tresiba FlexTouch) 200 UNIT/ML injectionIndicatio ns:Type 2 diabetes mellitus with hyperglycemia (CMS/HCC) INJECT 74 UNITS SUBCUTANEOUSLY ONCE DAILY 18 mL 3 08/07/20 24 Active insulin lispro (HumaLOG) 100 UNIT/ML injectionIndicatio ns:Type 2 diabetes mellitus with hyperglycemia (CMS/HCC),FDC (current) use of insulin (CMS/HCC) Inject 24 Units under the skin with breakfast, with lunch, and with evening meal. 4 mL 2 08/07/20 24 Active lisinopril 10 MG tablet TAKE 1 TABLET BY MOUTH ONCE DAILY 90 tablet 3 08/07/20 24 Active pioglitazone (Actos) 15 MG tabletIndications: Type 2 diabetes mellitus with diabetic polyneuropathy (CMS/HCC) Take 1 tablet (15 mg) by mouth Once per day. 90 tablet 3 08/07/20 24 Active hydrOXYzine HCl (Atarax) 25 MG tabletIndications: Pruritus TAKE 1 TABLET BY MOUTH two (2) times a day NEEDED 60 tablet 2 12/19/19 25 Active omeprazole (PriLOSEC) [address] capsuleIndications :Gastroesophageal reflux disease, unspecified whether esophagitis present TAKE 1 CAPSULE BY MOUTH ONCE DAILY BEFORE BREAKFAST. not crush or chew 90 capsule 12/20/19 25 Active Active Problems Problem Noted Date [...] up: with endocrinology as scheduled Fibromyalgia 06/30/2024 FDC current use of insulin 06/30/2024 Liver cirrhosis [...] Type Department Care Team Description 12/18/2024 Refill [facility] [address] [place] [address] Renetta Gómez MD Gastroesophageal reflux disease, unspecified whether esophagitis present 12/18/2024 Orders Only GENERIC EXTERNAL DATA DEPARTMENT Provider, Generic External Data 12/16/2024 Refill [facility] [address] [place] [address] Renetta Gómez MD Pruritus 11/24/2024 Population Health Risk Score [facility] Department [address] [place] [phone] Provider, Population Health Generic 11/08/2024 Patient Outreach [facility] [address] [place] [address] Renetta Gómez MD Care Coordination (CHW outreach for SDOH PT-1 and food needs-referral completed /) 11/08/2024 Telephone [facility] [address] [place] [address] Renetta Gómez MD PT-1 10/24/2024 Telephone [facility] [address] [place], [place] [phone] Sarah Bernal ANP from Last 3 Months Immunizations Name Administration [...] PM EDT Office Visit [facility] [address] [place] [phone] Rj, Betina, OD [address] [place] [address] Health Maintenance Due Date Last Done Comments CT Colonography 1970 FIT DNA/Cologuard 1970 FIT 1970 FOBT 1970 Sigmoidoscopy 1970 Diabetes: Foot Exam 1980 Alcohol/Substance Use Screening 1982 Depression Screening 04/06/2024 04/06/2023, 04/06/20 COVID-19 Vaccine [...] PROTHROMBIN TIME-INR Routine 12/18/2024 6:24 AM EDT POCT GLYCATED HEMOGLOBIN, TOTAL Routine 10/05/2024 1:27 PM EST Type 2 diabetes mellitus with hyperglycemia, with long-term current use of insulin ([facility]) LIPID PANEL, STANDARD Routine 07/12/2024 [...] Whole Blood 123(H) 60 - 115 mg/dL [facility] Comment:METER #: [id number] 12/18/2024 6:37 AM EDT 12/18/2024 6:41 AM EDT us Generic External Data Provider LAB BLOOD ORDERAB LES Final Result [facility] [address] [place] [address] [phone] * (ABNORMAL) Prothrombin Time-INR (12/18/2024 6:24 AM EDT) Prothrombin Time 15.2(H) 10.9 - 12.4 SEC [facility] INTERNATIONAL NORM RATIO 1.3(H) 0.9 - 1.1 [facility] Comment:INTERNATIONAL NORMAL IZED RATIO (INR) REFERENCE [...] ORDERAB LES Final Result Performing Organization Address City/[facility]/ZIP Co de Phone Number [facility] [address] [place] [phone] * (ABNORMAL) CBC (12/18/2024 6:24 AM EDT) White Blood Count 5.7 4.8 - 10.8 X10*3/uL [facility] Red Blood Count 4.63 4.20 - 5.50 X10*6/uL [facility] Hemoglobin 14.1 12.0 - 16.0 g/dl [facility] Hematocrit 41.5 37.0 - 47.0 % [facility] Mean Corpuscular Volume 89.6 80.0 - 98.0 fL [facility] Mean Corpuscular Hemoglobin 30.5 27.0 - 33.0 pg [facility] Mean Corpuscular HGB Conc 34.0 31.0 - 35.0 g/dl [facility] Red Cell Distribution Width 13.8 11.0 - 16.0 % [facility] Platelet Count 85(L) 160 - 400 X10*3/uL [facility] Mean Platelet Volume 11.6 9.4 - 12.3 fL [facility] NRBC Pct Auto 0.0 0.0 - 0.2 /100WBC [facility] NRBC Abs Auto 0.000 0.0 - 0.012 X10*3/uL [facility] 12/18/2024 6:24 AM EDT 12/18/2024 6:26 AM EDT us Generic External Data Provider LAB BLOOD ORDERAB LES Final Result Performing Organization Address [facility]/ZIP Co de Phone Number [facility] [address] [place] [phone] * (ABNORMAL) POCT HGB A1C (10/05/2024 1:27 PM EST) Hemoglobin A1C 6.7(A) 4.0 - 6.0 % QC Media Lot # [id number] Lot# Expiration Date Blood 10/05/2024 1:27 PM EST us Renetta Pedro MD POINT OF CARE TEST EN TER/EDIT ORDERABLES Final Result * (ABNORMAL) Lipid Panel, Standard (07/12/2024 10:54 AM EDT) Triglycerides 170(H) <150 mg/dL [facility] Comment:Desirable Triglyceri de: less than 150 mg/dLBorderline High Triglyceride 150-199 mg/dLHigh Triglyceride: 200-499 mg/dLVery High Triglyceride: greater than or equal to 5OO mg/dL Cholesterol 179 <200 mg/dL [facility] Comment:Desirable Cholestero l: less than 200 mg/dLBorderline High Cholesterol: 200-239 mg/dLHigh Cholesterol: greater than 239 mg/dL LDL Cholesterol Calculated 109(H) <100 mg/dL [facility] Comment:Desirable LDL: less than 100 mg/dLNear Optimal/Above Optimal LDL: 110- 129 mg/dLBorderline High LDL: 130-159 mg/dLHigh LDL: 160-189 mg/dLVery High LDL: greater than or equal to 190 mg/dL HDL Cholesterol 36(L) >40 mg/dL [facility] Comment:Desirable HDL: great er than 40 mg/dL Note: This HDL assay may give artificially low results in patients with liver disease. 07/12/2024 10:5 4 AM EDT 07/12/2024 10:54 AM EDT us Generic External Data Provider LAB BLOOD ORDERAB LES Final Result [facility] [address] [place] [phone] * Albumin, Random Urine W/Creatinine (07/12/2024 10:52 AM EDT) Creatinine, Urine 269.94 mg/dL [facility] Microalbumin Urine 33.0 mg/L [facility] Microalbum Creatinine Ratio Ur 12.2 <30 ug/mg cr [facility] Comment:Albumin/Creatinine R atio Reference Ranges: Normal: < 30 ug/mg creatinine Microalbuminuria: 30 - 300 ug/mg creatinineClinical Albuminuria: > 300 ug/mg creatinine 07/12/2024 10:5 2 AM EDT 07/12/2024 11:37 AM EDT us Generic External Data Provider LAB URINE ORDERAB LES Final Result [facility] [address] [place] [phone] * BI Mammogram Screening Tomosynthesis Bilateral (05/12/2024 10:15 AM EDT) Anatomical Region Laterality Modality Breast Bilateral Mammography 05/12/2024 10:1 5 AM EDT Narrative 06/02/2024 10:40 PM EDT ? [facility] ? [address] ?[place] [address] ? Mammography Report ? Signed ? Patient: Chasity David,Renata ?MR#: [id number] ?? [id number] ? : 1970 ?Acct:[id number] ? Age/Sex: 54 / F ?ADM Date: 08/30/24 ? Loc: HO.MAMMO ? Attending Dr: Renetta Pedro MD ? Ordering Physician: Renetta Gómez MD ?Results: ?? 1Negative ? Date of Service: 05/12/24 ?Follow Up: 1 Year From Orig ?? inal Mammogram ? Procedure(s): MM tomosynthesis screening BI ?? Accession Number(s): [id number] ? cc: Renetta Gómez MD ? EXAMINATION: [...] DD/ 1015 ? TD/TT: 05/12/24 1030 ? Oil And Gas Exploration Technician: ? Procedure Note Ricki, Image - 06/02/2024 [facility] [address] [place] [address] [place] [address] Mammography Report Signed Patient: Julia Gusman#: [id number] : 1970Acct:[id number] Age/Sex: 54 / FADM Date: 05/12/24 Loc: HO.MAMMO Attending Dr: Renetta Pedro MD Ordering Physician: Renetta Gómez MDResults: 1Negative Date of Service: 05/12/24Follow Up: 1 Year From Orig inal Mammogram Procedure(s): MM tomosynthesis screening BI Accession Number(s): [id number] cc: Renetta Gómez MD EXAMINATION: MM SCREENING [...] by Beth Milian DO in OV> 06/02/24 3407 DD/ 1015 TD/TT: 05/12/24 1030 Oil And Gas Exploration Technician: Renetta Pedro MD IMG BI PROCEDURES Nael aftab Result - Final * HIV Ab/Ag (DAT DPH) (07/02/2023 8:37 AM EDT) HIV AB/AG Nonreactive Nonreactive [facility] Comment:HIV-1 p24 Ag and/or HIV-1/HIV-2 Ab not detected.A test result that is nonreactive does not exclude thepossibility of exposure to or infection with HIV-1 and/orHIV-2. Nonreactive results in this assay for individualswith prior exposure to HIV-1 and/or HIV-2 may be due toantigen and antibody levels that are below the limit ofdetection of this assay.The [employer] HIV Ag/Ab Combo assay result andsupplemental assay results should be interpreted inconjunction with the patient's clinical presentation,history and other laboratory results. If the results areinconsistent with clinical evidence, additional testing issuggested to confirm the result. 07/02/2023 8:37 AM EDT 07/02/2023 11:24 AM EDT Renetta Pedro MD LAB BLOOD ORDERABLES Final Result [facility] [address] [place] [phone] * Hm Colonoscopy (09/15/2022) Pathologist [facility] Colonoscopy Normal Normal Narrative Celia Centeno - 09/15/2022 Repeat Colonoscopy in 5 years due to fair prep or earlier if clinically indicated . See external hospital admission note on 09/15/2022(book marked ) [facility] Provider HEALTH MAINTENANCE Final Result * Hepatitis A,B,C Profile (08/11/2022 11:00 AM EST) Pathologist [facility] Hepatitis B Core Antibody Nonreactive Nonreactive CONVERTED [...] ORDERABLE LABS Final Result Performing Organization Address City/[facility] Co de Phone Number [facility]Y LABS * HPV DNA, HIGH RISK, CERVICAL (05/08/2020 3:09 PM EDT) HPV DNA, HIGH RISK, CERVICAL Not Detected NOT DETECTED [facility] Comment: Not Detected ?? High Risk HPV types (16,18,31,33,35,39,45,51,52, 56,58,59,66,68) were not detected. Other HPV types which cause anogenital lesions may be present. The significance of the other types of HPV in malignant processes has not been established. ?? Methodology: Real Time PCR ? 05/08/2020 3:09 PM EDT Renetta Pedro MD HISTORICAL/NON ORDERA BLE LABS Final Result Performing Organization Address [facility] de Phone Number [facility] [address] [place] [address], * THINPREP TIS PAP (05/08/2020 3:09 PM EDT) Clinical Information: SEE COMMENT [facility] Comment:None given COMMENT SEE COMMENT [...] has been evaluated with computer assisted technology. Employee Relations Manager: SEE COMMENT [facility] Comment: LT, CT(ASCP) CT screening location: [address] ??[address] Infection SEE [facility]MENT [facility] Comment: Shift in vaginal zeina suggestive of bacterial vaginosis. Interpretation/Resu lt: [facility] Comment:Negative for intraep ithelial lesion or malignancy. LMP: [facility] Comment:NONE GIVEN Prev. BX: NONE GIVEN [facility] Prev. PAP: SEE COMMENT [facility] Comment:NONE GIVEN SOURCE: [facility]MENT [facility] Comment:None given Statement Of Adequacy: SEE COMMENT [facility] Comment: Satisfactory for evaluation. Endocervical/transformation zone component present. Age and/or menstrual status not provided 05/08/2020 3:09 PM EDT us Renetta Pedro MD LAB PATHOLOGY ORDERAB LES Final Result [facility] [address] from Last 3 Months or Most Recently Relevant to Health Maintenance Insurance [facility] C3 * Guarantor: Renata Gusman Account Type Relation to Patient Date of Phone Billing Address Personal/Family Self [address] [place] [address] * Guarantor: Renata Gusman Account Type Relation to Patient Date of Phone Billing Address Personal/Family Self [address] [place] [address] * Guarantor: Reanta Gusman Account Type Relation to Patient Date of Phone Billing Address Personal/Family Self [address] [place] [address] Care Teams Senior Sql Database Developer Relationship Specialty Start Date End Date Renetta Gómez MD [address] [place] [address] PCP - General Family Medicine 12/29/18
--- OUTSIDE RECORDS SUMMARY | 2025-01-19 10:03 | XMS_ITS | Encounter Summary ---
Author Organization [employer] Address [address] [facility] 7t [place] [address] Care Team Providers Care Sales Representative Health Insurance Name Role Phone Renetta Gómez MD Primary Care Provide r Reason for Visit * Reason Comments Med Refill Encounter Details Date Type Department Care Team (Late Contact Info) Description 06/16/2023 Refill [facility] [address] [place] [address] Roxana Quinonez MD [address] [place] [address] Social History Tobacco Use Types Packs/Day Years [...] Description 04/10/2025 2:00 PM EDT Office Visit [facility] [address] [place] [address] Betina De La Rosa, OD [address] [place] [address] documented as of this encounter Visit Diagnoses Not on filedocumented in this encounter Additional Health Concerns Assessment Noted Time PHQ-9 Depression Total Score: 0 04/06/20 23 10:11 AM EDT documented as of this encounter Care Teams Sales Representative Health Insurance Relationship Specialty Start Date End Date Renetta Gómez MD [address] [place] [address] PCP - General Family Medicine 12/29/18 documented as of this encounter
--- OUTSIDE RECORDS SUMMARY | 2025-01-19 10:03 | XMS_ITS | Encounter Summary ---
Author Organization [employer] Address [address] [facility] 7[address] [place] [address] Care Team Providers Care Frame Stylist Name Role Phone Renetta Gómez MD Primary Care Provide r Reason for Visit * Reason Comments Med Refill Encounter Details Date Type Department Care Team (Late st Contact Info) Description 07/29/2024 Refill [facility] [address] [place], [place] [phone] Renetta Gómez MD [address] [place], [place] [phone] Pruritus Social History Tobacco Use Types Packs/Day [...] t he electric, gas, oil or water [employer] threatened to shut off services in your [...] Description 04/10/2025 2:00 PM EDT Office Visit [facility] [address] [place], [place] [phone] Betina De La Rosa, OD [address] [place] [address] documented as of this encounter Visit Diagnoses Diagnosis Pruritus Unspecified pruritic disorder documented in this encounter Additional Health Concerns Assessment Noted Time PHQ-9 Depression Total Score: 0 04/06/20 23 10:11 AM EDT documented as of this encounter Care Teams Frame Stylist Relationship Specialty Start Date End Date Renetta Gómez MD [address] [place] [address] PCP - General Family Medicine 12/29/18 documented as of this encounter
--- OUTSIDE RECORDS SUMMARY | 2025-01-19 10:03 | XMS_ITS | Encounter Summary ---
Author Organization [employer] Address [address] [facility] 7t [place] [address] Care Team Providers Care Chore Tender Name Role Phone Renetta Gómez MD Primary Care Provide r Encounter Details Date Type Department Care Team (Late st Contact Info) Description 12/02/2022 Orders Only [facility] [address] [place] [address] Lizbeth Navarro LPN Social History Tobacco Use [...] Description 04/10/2025 2:00 PM EDT Office Visit [facility] [address] [place] [address] Betina De La Rosa, OD [address] [place] [address] documented as of this encounter Visit Diagnoses Not on filedocumented in this encounter Care Teams Chore Tender Relationship Specialty Start Date End Date Renetta Gómez MD [address] [place] [address] PCP - General Family Medicine 12/29/18 documented as of this encounter
--- OUTSIDE RECORDS SUMMARY | 2025-01-19 10:03 | XMS_ITS | Encounter Summary ---
Author Organization [employer] Address [address] [facility] 7t [place] [address] Care Team Providers Care Stringing Machine Tender Name Role Phone Renetta Gómez MD Primary Care Provide r Reason for Visit * Reason Onset Date Comments PT-1 11/08/2024 Encounter Details Date Type Department Care Team ([facility] st Contact Info) Description 11/08/2024 Telephone [facility] [address] [place], [place] [phone] Renetta Gómez MD [address] [place] [address] PT-1 Social History Tobacco Use Types Packs/Day [...] Y/N: Yes Provider name or facility name: [address] [place] [address] Dr. Wolfe 203 Escort needed: Y/N: No Do you have a wheelchair: Y/N: No If yes- Manual or electric: Visits: (4) ( monthly) documented in this encounter Plan of Treatment Upcoming Encounters Date Type Department Care Team (Late st Contact Info) Description 04/10/2025 2:00 PM EDT Office Visit [facility] [address] [place] [address] Rj, Betina, OD [address] [place] [address] documented as of this encounter Visit Diagnoses Not on filedocumented in this encounter Additional Health Concerns Assessment Noted Time PHQ-9 Depression Total Score: 0 04/06/20 23 10:11 AM EDT documented as of this encounter Care Teams Stringing Machine Tender Relationship Specialty Start Date End Date Renetta Gómez MD [address] [place] [address] PCP - General Family Medicine 12/29/18 documented as of this encounter
--- OUTSIDE RECORDS SUMMARY | 2025-01-19 10:03 | XMS_ITS | Clinical Summary ---
Author Organization [facility] Address [address] [place] [address] Phone Care Team Providers Care K 12 Principal Name Role Phone Renetta Gómez MD Primary Care Provide r Allergies Active Allergy Reactions Criticality Noted Date Comments Acetaminophen-Codeine 06/13/2024 Shellfish Derived 06/13/2024 Medications clotrimazole (LOTRIMIN) 1 % cream Apply to skin and toenails daily for 12 weeks 4 Active ketoconazole (NIZORAL) 2 % cream Apply topically 1 (one) time each day. 30 g 2 5 Active ciclopirox (LOPROX) 0.77 % gel Apply topically 2 (two) times a day. 45 g 5 01/15/20 25 Active Problems Problem Noted Date Diagnosed Date Onychomycosis 06/13/2024 Pruritus 06/13/2024 Right hand pain 06/13/2024 T2DM (type 2 diabetes mellitus) ([facility] V24, [facility] V28) 06/13/2024 Encounters Date Type Department Care Team Description 01/16/2025 1:00 PM EDT Office Visit Orthopedic Surgery [facility] [address] [facility] [address] [place] [address] Ed Cowart, DPM Dermatophytosis of nail (Primary Dx); Diabetic mononeuropathy simplex ([facility] V24, [facility] V28); Acquired hammer toe of right foot; Hammer toe of left foot; Type II diabetes mellitus with peripheral circulatory disorder ([facility] V24, [facility] V28) from Last 3 Months Social History [...] Care Team (Late st Contact Info) Description 04/18/2025 1:45 PM EDT Office Visit Orthopedic Surgery [facility] [address] [phone] Ed Cowart, DPM [address] [address] Health Maintenance Due Date Last Done Comments [...] topic Insurance MEDICAID - [place] Care Teams K 12 Principal Relationship Specialty Start Date End Date Renetta Gómez MD [address] [place] [phone] PCP - General 08/25/23
--- OUTSIDE RECORDS SUMMARY | 2025-01-19 10:03 | XMS_ITS | Encounter Summary ---
Author Organization [employer] Address [address] [facility] [address]t [place] [address] Care Team Providers Care On Line Csr Name Role Phone Renetta Gómez MD Primary Care Provide r Reason for Visit * Reason Comments Med Refill Encounter Details Date Type Department Care Team (Late st Contact Info) Description 09/25/2023 Refill [facility] [address] [place], [place] [phone] Renetta Gómez MD [address] [place], [place] [phone] Hypothyroidism, unspecified type Social History Tobacco Use [...] Description 04/10/2025 2:00 PM EDT Office Visit [facility] OPTOMETRY [address] [place] [address] Betina De La Rosa, OD [address] [place], [place] [phone] documented as of this encounter Visit Diagnoses Diagnosis Hypothyroidism, unspecified type documented in this encounter Additional Health Concerns Assessment Noted Time PHQ-9 Depression Total Score: 0 04/06/20 23 10:11 AM EDT documented as of this encounter Care Teams On Line Csr Relationship Specialty Start Date End Date Renetta Gómez MD [address] [place] [address] PCP - General Family Medicine 12/29/18 documented as of this encounter
== END 2025-01-19 09:43 | disposition home or self-care (01) ==
LOC: HO.US 09:42
DX: R09.89 Other specified symptoms and signs involving the circulatory and respiratory systems (principal); G56.01 Carpal tunnel syndrome, right upper limb; G56.21 Lesion of ulnar nerve, right upper limb
CPT/HCPCS: 93931

== ENCOUNTER → 2025-01-19 09:43 | Outpatient (BNV) | payer MEDICAID, SELFPAY | PROVIDERS: Visit Provider Radiology Diagnostic Radiology | DX: R09.89 Other specified symptoms and signs involving the circulatory and respiratory systems (principal) | CPT/HCPCS: 93931 ==

== ENCOUNTER 2025-01-23 12:46 | Outpatient (AMB) | payer MEDICAID, SELFPAY ==
--- NOTE | 2025-01-23 13:03 | A.OFFVIS_ITS ---
Vital Signs 01/23/25 13:13 Height 5 ft 4 in Weight 164 lb BMI 28.1 BP 104/68 Blood Pressure Location Rt brachial Position Sitting Pulse 72 Pulse Source Pulse Oximeter Pulse Oximetry (%) 96 Oxygen Delivery Method Room Air Intake Visit Reasons: Gastroesophageal reflux disease (GERD) Intake Note: ESTABLISHED PATIENT for mgmt of GERD. CC; C.O. constipation persistence despite attempting treatment with docusate, bisacodyl, and senna w/o relief. Pt does comment that her PPI is working OK and her reflux has been well controlled. Bottle Packing Machine Cleaner Required: Yes Bottle Packing Machine Cleaner Services: Bottle Packing Machine Cleaner Present Bottle Packing Machine Cleaner Name: Jay [id number] Information Interpreted: clinical only Accompanied by: Spouse Allergies seafood Allergy (Severe, Verified 01/23/25 13:07) throat closes codeine [Tylenol-Codeine] Allergy (Intermediate, Verified 01/23/25 13:07) rash HPI HPI Gastroesophageal reflux disease (GERD): Details: LAST VISIT Liver cirrhosis GERD (gastroesophageal reflux disease) Plan Patient will continue taking PPI. Avoid dietary triggers and late night snacking. Continue taking Dulcolax daily. Patient no longer is experiencing right upper quadrant pain. Most likely related to gas trapping pain from being constipated. Avoid dietary triggers. Continue Ozempic. Next visit will check alpha-fetoprotein. Stage IV liver cirrhosis with MELD score 8. Continue low-fat, high-protein diet. Patient will return in 6 months, sooner on as needed basis. Patient is agreeable to this plan and verbalizes understanding of instructions. She was given the opportunity to ask questions and all questions answered. ? Thank you for allowing me to participate in her care Orders Orders Liver Panel 03/29/24 R74.01 TODAY'S VISIT: Patient is here today for follow-up. Patient reports that she has been doing well, however she continues to be constipated. Patient tried stool softener and senna and reports that she is unable to move her bowels. Patient reports that she is drinking fluids but not enough. Patient tried Dulcolax in the past and reports that it was working. We will try to send a script for that. Patient reports that her acid reflux was consoled with a PPI patient denies dyspepsia, dysphagia or odynophagia. Denies melena, hematochezia, unintentional weight loss or ribbon like stools. Since last visit patient lost 10 lb. Patient is following up with endocrinology. Currently she is taking Ozempic and reports that she has been doing fairly well. Her constipation could be related to taking Ozempic. However patient reports that she was constipated before she even started. [facility] Medical History Carpal tunnel syndrome, right Liver cirrhosis Hyperlipidemia Hepatitis C Elevated liver enzymes Hypothyroidism Depression Fibromyalgia Asthma Type 2 diabetes mellitus with diabetic polyneuropathy Type 2 diabetes mellitus with hyperglycemia, with long-term current use of insulin care home current use of insulin Chronic kidney disease, stage 3 Surgical History Hx of colonoscopy Hx of hand surgery Hx of biopsy H/O oral surgery Family History Mother Diabetes Asthma Kidney stones HTN (hypertension) Brother Diabetes Father Bloodstream infection Social History Household Members: Spouse Are you a primary care program director to a significant other at home: No Do you presently have visiting nurse or other home services: No Alcohol intake: current Alcohol intake frequency: does not drink Patient Tobacco Use Status: Never used Tobacco Current occupational status: disabled Review of Systems Const Denies weight gain and Denies weight loss ENT Reports no additional complaints, Denies dysphagia and Denies odynophagia Card Reports no additional complaints Resp Reports no additional complaints GI Denies abdominal pain, Denies belching, Denies melena, Denies bloating, Denies change in bowel habits, Denies dysphagia, Denies excessive flatus, Denies dyspepsia, Denies heartburn, Denies diarrhea, Denies loose stools, Denies nausea, Denies odynophagia and Denies vomiting Reports no additional complaints Musc Reports no additional complaints Neuro Reports no additional complaints Psych Reports no additional complaints Endo Reports no additional complaints Physical Exam Vital Signs: Last Vital Signs Pulse 72 01/23/25 13:13 BP 104/68 01/23/25 13:13 Pulse Ox 96 01/23/25 13:13 Oxygen Delivery Method Room Air 01/23/25 13:13 BMI result Body Mass Index 28.1 Const General: healthy appearing and no acute distress Nutritional Appearance: obese Orientation/consciousness: patient oriented x3 Resp Effort & Inspection: normal respiratory effort, able to speak in complete sentences, no tracheal deviation and symmetric chest movement Auscultation: clear to auscultation bilaterally Cardio Rate: regular rate GI Inspection: Yes normal to inspection, No distended and Yes obesity Palpation (GI): Soft to palpation, not firm, nontender and No hepatosplenomegaly present Auscultation: normal bowel sounds General: Yes no CVA tenderness Back/Spine/Pelvis Back: no CVA tenderness Skin General skin exam: elasticity normal, turgor normal and dry skin Neuro General: patient oriented x3 Psych Appearance: grossly normal Mental Status: mental status grossly normal Assessment & Plan Assessment & Plan (1) Liver cirrhosis: Code(s): K74.60 - Unspecified cirrhosis of liver Category: Medical Qualifiers: Hepatic cirrhosis type: other cirrhosis Qualified Code(s): K74.69 - Other cirrhosis of liver (2) Constipation: Code(s): K59.00 - Constipation, unspecified Category: Medical Qualifiers: Constipation type: chronic idiopathic constipation Qualified Code(s): K59.04 - Chronic idiopathic constipation (3) GERD (gastroesophageal reflux disease): Code(s): K21.9 - Gastro-esophageal reflux disease without esophagitis Qualifiers: Esophagitis presence: esophagitis presence not specified Qualified Code(s): K21.9 - Gastro-esophageal reflux disease without esophagitis (4) Transaminitis: Code(s): R74.01 - Elevation of levels of liver transaminase levels Plan Patient will continue taking omeprazole. Avoid dietary triggers and late night snacking. Staying upright for minimum 3 hours after meals discussed with patient. Patient will start taking Dulcolax daily. Increase fluid intake and activity to promote better bowel motility. Will recheck liver enzymes, liver fibrosis panel and ultrasound with liver elastography. Patient will follow-up in 4 months, sooner on as needed basis. She is agreeable to this plan and verbalizes understanding of instructions. She was given the opportunity to ask questions and all questions answered. Thank you for allowing me to participate in her care Orders: Orders Liver Fibrosis Pnl Today K76.0 - Fatty (change of) liver, not elsewhere classified US abdomen nunez w elastography Today K76.0 - Fatty (change of) liver, not elsewhere classified Liver Panel Today R74.01 - Elevation of levels of liver transaminase levels Medications: New bisacodyl (Dulcolax (bisacodyl)) 10 mg (2 x 5 mg) PO BEDTIME 180 tabs 4RF omeprazole 40 mg PO QAM 90 caps 3RF Coding Level of Care Code Est Pt Level 4 (33529) Complex EM visit Add On G2211 Diagnoses Other cirrhosis of liver K74.69 Hepatic cirrhosis type: other cirrhosis Chronic idiopathic constipation K59.04 Constipation type: chronic idiopathic constipation Gastroesophageal reflux disease, unspecified whether esophagitis present K21.9 Esophagitis presence: esophagitis presence not specified Transaminitis R74.01 Time Spent (min) 40 Comment 25 minutes spent with patient and additional 15 minutes spent reviewing her records
[2025-01-23 13:13] VITALS: BP 104/68; PULSE 72; O2SAT 96; BMI 28.1
--- OUTSIDE RECORDS SUMMARY | 2025-01-23 13:47 | XMS_ITS | Encounter Summary ---
Author Organization [email or web address] Address [address] [facility] [address] [place] [address] Care Team Providers Care Sprayer Automatic Spray Machine Name Role Phone Renetta Gómez MD Primary Care Provide r Encounter Details Date Type Department Care Team (Late Contact Info) Description 06/16/2023 Orders Only [facility] CHC MED & PEDS [address] [place], [place] [phone] Lizbeth Navarro LPN Social History Tobacco Use [...] Description 04/10/2025 2:00 PM EDT Office Visit [facility] OPTOMETRY [address] [place] [address] Rj, Betina, OD [address] [facility] [place], [place] [phone] documented as of this encounter Visit Diagnoses Not on filedocumented in this encounter Additional Health Concerns Assessment Noted Time PHQ-9 Depression Total Score: 0 04/06/20 23 10:11 AM EDT documented as of this encounter Care Teams Sprayer Automatic Spray Machine Relationship Specialty Start Date End Date Renetta Gómez MD [address] [place] [address] PCP - General Family Medicine 12/29/18 documented as of this encounter
--- OUTSIDE RECORDS SUMMARY | 2025-01-23 13:47 | XMS_ITS | Encounter Summary ---
Author Organization [employer] Address [address] [facility] [address] [place] [address] Care Team Providers Care State Epidemiologist Name Role Phone Renetta Gómez MD Primary Care Provide r Encounter Details Date Type Department Care Team (Late st Contact Info) Description 11/10/2022 Orders Only [facility] CHC MED & PEDS [address] [place] [address] Lizbeth Navarro LPN Social History Tobacco Use [...] 04/10/2025 2:00 PM EDT Office Visit [facility] OPTOMETRY [address] [place] [address] Betina De La Rosa, OD [address] [place] [address] documented as of this encounter Visit Diagnoses Not on filedocumented in this encounter Care Teams State Epidemiologist Relationship Specialty Start Date End Date Renetta Gómez MD [address] [place] [address] PCP - General Family Medicine 12/29/18 documented as of this encounter
--- OUTSIDE RECORDS SUMMARY | 2025-01-23 13:47 | XMS_ITS | Encounter Summary ---
Author Organization [employer] Address [address] [facility] 7[address] [place] [address] Care Team Providers Care News Cameraman Name Role Phone Renetta Gómez MD Primary Care Provide r Reason for Visit * Reason Comments Med Refill Encounter Details Date Type Department Care Team (Late st Contact Info) Description 07/29/2024 Refill [facility] MEDICINE [address] [place], [place] [phone] Renetta Gómez MD [address] [place], [place] [phone] Pruritus Social History Tobacco Use Types Packs/Day [...] t he electric, gas, oil or water [employer] threatened to shut off services in your [...] Description 04/10/2025 2:00 PM EDT Office Visit [facility] OPTOMETRY [address] [place], [place] [phone] Betina De La Rosa, OD [address] [place] [address] documented as of this encounter Visit Diagnoses Diagnosis Pruritus Unspecified pruritic disorder documented in this encounter Additional Health Concerns Assessment Noted Time PHQ-9 Depression Total Score: 0 04/06/20 23 10:11 AM EDT documented as of this encounter Care Teams News Cameraman Relationship Specialty Start Date End Date Renetta Gómez MD [address] [place] [address] PCP - General Family Medicine 12/29/18 documented as of this encounter
--- OUTSIDE RECORDS SUMMARY | 2025-01-23 13:47 | XMS_ITS | Encounter Summary ---
Author Organization [employer] Address [address] [facility] [address] [place] [address] Care Team Providers Care Steam Drier Operator Name Role Phone Renetta Gómez MD Primary Care Provide r Reason for Visit * Reason Onset Date Comments PT1 05/24/2024 Encounter Details Date Type Department Care Team ([facility] st Contact Info) Description 05/24/2024 Telephone [facility] MEDICINE [address] [place], [place] [phone] Renetta Gómez MD [address] [place] [address] PT1 Social History Tobacco Use Types Packs/Day [...] facility name: Ed Cowart DPM Facility Address: [address] [place] [address] [place] [address] Escort needed: Y/N: Yes Do you have a wheelchair: Y/N: No If yes- Manual or electric: Visits: 4-5 visits a year documented in this encounter Plan of Treatment Upcoming Encounters Date Type Department Care Team (Late st Contact Info) Description 04/10/2025 2:00 PM EDT Office Visit [facility] OPTOMETRY [address] [place] [address] Rj, Betina, OD [address] [place] [address] documented as of this encounter Visit Diagnoses Not on filedocumented in this encounter Additional Health Concerns Assessment Noted Time PHQ-9 Depression Total Score: 0 04/06/20 23 10:11 AM EDT documented as of this encounter Care Teams Steam Drier Operator Relationship Specialty Start Date End Date Renetta Gómez MD [address] [place], [place] [phone] PCP - General Family Medicine 12/29/18 documented as of this encounter
--- OUTSIDE RECORDS SUMMARY | 2025-01-23 13:47 | XMS_ITS | Encounter Summary ---
Author Organization [employer] Address [address] [facility] [address] [place] [address] Care Team Providers Care Burner Shaft Name Role Phone Renetta Gómez MD Primary Care Provide r Reason for Visit * Reason Onset Date Comments PT1 03/21/2024 Encounter Details Date Type Department Care Team ([facility] st Contact Info) Description 03/21/2024 Telephone [facility] MEDICINE [address] [place], [place] [phone] Renetta Gómez MD [address] [place] [address] PT1 Social History Tobacco Use Types Packs/Day [...] facility name: Dr.Allison Bennett Facility Address: [address], [place] Escort needed: Y/N: Yes Do you have a wheelchair: no If yes- Manual or electric: no Visits: 4 Patient calling requesting PT1 Home Address verified: Y/N: Yes Provider name or facility name: Dr.Corina Leon Facility Address: [address], [place] Escort needed: Y/N: Yes Do you have a wheelchair: Y/N: No If yes- Manual or electric: no Visits: 4 Patient calling requesting PT1 Home Address verified: Y/N: Yes Provider name or facility name: Dr. Ele Esparza Facility Address: [address], [place] Escort needed: Y/N: Yes Do you have a wheelchair: Y/N: No If yes- Manual or electric: no Visits: 4 Patient calling requesting PT1 Home Address verified: Y/N: No Provider name or facility name: Dr. Magrie Hugo Facility Address: [address] [place], [place] Escort needed: Y/N: Yes Do you have a wheelchair: Y/N: No If yes- Manual or electric: no Visits: 4 * Telephone Encounter - Emily Rodriguez - 03/21/2024 12:28 PM EDT Patient calling requesting PT1 Home Address verified: Y/N: Yes Provider name or facility name: [facility] Facility Address: [address] [facility], Escort needed: Y/N: Yes Do you have a wheelchair: Y/N: No If yes- Manual or electric: NO Visits: ALL FUTURE APPTS documented in this encounter Plan of Treatment Upcoming Encounters Date Type Department Care Team (Late st Contact Info) Description 04/10/2025 2:00 PM EDT Office Visit [facility] OPTOMETRY [address] [place] [address] Rj, Betina, OD [address] [place] [address] documented as of this encounter Visit Diagnoses Not on filedocumented in this encounter Additional Health Concerns Assessment Noted Time PHQ-9 Depression Total Score: 0 04/06/20 23 10:11 AM EDT documented as of this encounter Care Teams Burner Shaft Relationship Specialty Start Date End Date Renetta Gómez MD [address] [place] [address] PCP - General Family Medicine 12/29/18 documented as of this encounter
--- OUTSIDE RECORDS SUMMARY | 2025-01-23 13:47 | XMS_ITS | Encounter Summary ---
Author Organization [employer] Address [address] [facility] [address] [place] [address] Care Team Providers Care Shark Biologist Name Role Phone Renetta Gómez MD Primary Care Provide r Encounter Details Date Type Department Care Team (Late st Contact Info) Description 12/02/2022 Orders Only [facility] CHC MED & PEDS [address] [place] [address] Lizbeth Navarro LPN Social History Tobacco Use [...] Description 04/10/2025 2:00 PM EDT Office Visit [facility] OPTOMETRY [address] [place] [address] Betina De La Rosa, OD [address] [place] [address] documented as of this encounter Visit Diagnoses Not on filedocumented in this encounter Care Teams Shark Biologist Relationship Specialty Start Date End Date Renetta Gómez MD [address] [place] [address] PCP - General Family Medicine 12/29/18 documented as of this encounter
--- OUTSIDE RECORDS SUMMARY | 2025-01-23 13:47 | XMS_ITS | Clinical Summary ---
Author Organization [employer] Address [address] [facility] 7t [place] [address] Care Team Providers Care Grain Combine Driver Name Role Phone Renetta Gómez MD Primary Care Provide r Allergies Active Allergy Reactions Criticality Noted Date Comments Acetaminophen 12/29/2018 Other reaction(s): Hives / Skin Rash Codeine 12/29/2018 Other reaction(s): Hives / Skin Rash Shellfish Allergy Angioedema High 12/09/2023 Can eat clams and fish Medications FREESTYLE LITE test stripIndications:T ype 2 diabetes mellitus without complication, unspecified whether planogrammer insulin use ([facility]) USE TO TEST FINGER STICK BLOOD [...] bedtime. 06/11/20 23 Active Continuous Blood Gluc District Fire Chief (FreeStyle Oren 2 [place]) deviceIndications: Type 2 diabetes mellitus with hyperglycemia, with long-term current use of insulin ([facility]) Scan sensor every 8 hours 1 each 07/01/20 23 Active Continuous Blood Gluc Sensor (FreeStyle Oren 2 Sensor) miscIndications:Ty pe 2 diabetes mellitus with hyperglycemia, with long-term current use of insulin ([facility]) Apply 1 sensor every 14 days 2 each 07/01/20 23 Active Trulicity 4.5 MG/0.5ML solution pen-injectorIndica tions:Type 2 diabetes mellitus with hyperglycemia ([facility]) INJECT 4.5 mg SUBCUTANEOUSLY EVERY WEEK [...] injectionIndicatio ns:Type 2 diabetes mellitus with hyperglycemia (CMS/HCC),longterm (current) [...] up: with endocrinology as scheduled Fibromyalgia 06/30/2024 orthopedic brace maker current use of insulin 06/30/2024 Liver cirrhosis [...] Type Department Care Team Description 12/18/2024 Refill [facility] [address] [place] [address] Renetta Gómez MD Gastroesophageal reflux disease, unspecified whether esophagitis present 12/18/2024 Orders Only GENERIC EXTERNAL DATA DEPARTMENT Provider, Generic External Data 12/16/2024 Refill [facility] [address] [place] [address] Renetta Gómez MD Pruritus 11/24/2024 Population Health Risk Score [facility] Department [address] [place] [phone] Provider, Population Health Generic 11/08/2024 Patient Outreach [facility] [address] [place] [address] Renetta Gómez MD Care Coordination (CHW outreach for SDOH PT-1 and food needs-referral completed /) 11/08/2024 Telephone [facility] [address] [place] [address] Renetta Gómez MD PT-1 from Last 3 Months Immunizations Name Administration [...] your housing situation today? I have john gian 06/29/[address] you li [...] Description 04/10/2025 2:00 PM EDT Office Visit [facility] [address] [place], [place] [phone] Rj, Betina, OD [address] [place], [place] [phone] Health Maintenance Due Date Last Done Comments [...] Additional history exists Lipid Panel 07/12/2025 07/12/2024, 08, 08/04/2022, Additional history exists SDOH Screening 09/25/2025 09/25/2024 Tobacco Screening 10/05/2025 10/05/2024 Colonoscopy 09/15/2027 09/15/2022 Colorectal Cancer Screening 09/15/2027 DTaP/Tdap/Td Vaccines (2 - Td or Tdap) 12/08/2033 12/09/2023 RSV Patients and Patients Aged 60 years or older (1 - 1-dose 75+ series) 2045 Zoster Vaccines Completed 09/10/2021, 07/10/2021 Hepatitis C Screening Completed 08/11/2022, 021 Hepatitis A Vaccines Completed 03/02/2023, 08/18/20 22 Hepatitis B Vaccines Completed 03/02/2023, 10/06/2022, 08/18/2022 [...] hyperglycemia, with long-term current use of insulin ([facility]) LIPID PANEL, STANDARD Routine 07/12/2024 10:54 [...] Whole Blood 123(H) 60 - 115 mg/dL [facility] Comment:METER #: [id number] 12/18/2024 6:37 AM EDT 12/18/2024 6:41 AM EDT Generic External Data Provider LAB BLOOD ORDERAB LES Final Result Performing Organization Address City/[facility] Co de Phone Number [facility] [address] [place] [phone] * (ABNORMAL) Prothrombin Time-INR (12/18/2024 6:24 AM EDT) Prothrombin Time 15.2(H) 10.9 - 12.4 SEC [facility] INTERNATIONAL NORM RATIO 1.3(H) 0.9 - 1.1 [facility] Comment:INTERNATIONAL NORMAL IZED RATIO (INR) [...] 6:24 AM EDT 12/18/2024 6:26 AM EDT Generic External Data Provider LAB BLOOD ORDERAB LES Final Result Performing Organization Address City/[facility]/ZIP Co de Phone Number [facility] [address] [place] [address] [phone] * (ABNORMAL) CBC (12/18/2024 6:24 AM EDT) White Blood Count 5.7 4.8 - 10.8 X10*3/uL [facility] Red Blood Count 4.63 4.20 - 5.50 X10*6/uL [facility] Hemoglobin 14.1 12.0 - 16.0 g/dl [facility] Hematocrit 41.5 37.0 - 47.0 % [facility] Mean Corpuscular Volume 89.6 80.0 - 98.0 fL [facility] Mean Corpuscular Hemoglobin 30.5 27.0 - 33.0 pg [facility] Mean Corpuscular HGB Conc 34.0 31.0 - 35.0 g/dl [facility] Red Cell Distribution Width 13.8 11.0 - 16.0 % [facility] Platelet Count 85(L) 160 - 400 X10*3/uL [facility] Mean Platelet Volume 11.6 9.4 - 12.3 fL [facility] NRBC Pct Auto 0.0 0.0 - 0.2 /100WBC [facility] NRBC Abs Auto 0.000 0.0 - 0.012 X10*3/uL [facility] 12/18/2024 6:24 AM EDT 12/18/2024 6:26 AM EDT us Generic External Data Provider LAB BLOOD ORDERAB LES Final Result Performing Organization Address City/[facility]/ZIP Co de Phone Number [facility] [address] [place] [address] [phone] * (ABNORMAL) POCT HGB A1C (10/05/2024 1:27 PM EST) [facility] Hemoglobin A1C 6.7(A) 4.0 - 6.0 % QC Media Lot # [id number] Lot# Expiration Date [id number] Blood 10/05/2024 1:27 PM EST us Renetta Pedro MD POINT OF CARE TEST EN TER/EDIT ORDERABLES Final Result * (ABNORMAL) Lipid Panel, Standard (07/12/2024 10:54 AM EDT) Triglycerides 170(H) <150 mg/dL [facility] Comment:Desirable Triglyceri de: less than 150 mg/dLBorderline High Triglyceride 150-199 mg/dLHigh Triglyceride: 200-499 mg/dLVery High Triglyceride: greater than or equal to 5OO mg/dL Cholesterol 179 <200 mg/dL [facility] Comment:Desirable Cholestero l: less than 200 mg/dLBorderline High Cholesterol: 200-239 mg/dLHigh Cholesterol: greater than 239 mg/dL LDL Cholesterol Calculated 109(H) <100 mg/dL [facility] Comment:Desirable LDL: less than 100 mg/dLNear Optimal/Above Optimal LDL: 110- 129 mg/dLBorderline High LDL: 130-159 mg/dLHigh LDL: 160-189 mg/dLVery High LDL: greater than or equal to 190 mg/dL HDL Cholesterol 36(L) >40 mg/dL [facility] Comment:Desirable HDL: great er than 40 mg/dL Note: This HDL assay may give artificially low results in patients with liver disease. 07/12/2024 10:5 4 AM EDT 07/12/2024 10:54 AM EDT us Generic External Data Provider LAB BLOOD ORDERAB LES Final Result [facility] [address] [place], [place] [phone] * Albumin, Random Urine W/Creatinine (07/12/2024 10:52 AM EDT) Creatinine, Urine 269.94 mg/dL [facility] Microalbumin Urine 33.0 mg/L [facility] Microalbum Creatinine Ratio Ur 12.2 <30 ug/mg cr [facility] Comment:Albumin/Creatinine R atio Reference Ranges: Normal: < 30 ug/mg creatinine Microalbuminuria: 30 - 300 ug/mg creatinineClinical Albuminuria: > 300 ug/mg creatinine 07/12/2024 10:5 2 AM EDT 07/12/2024 11:37 AM EDT us Generic External Data Provider LAB URINE ORDERAB LES Final Result [facility] [address] [place] [phone] [phone] * BI Mammogram Screening Tomosynthesis Bilateral (05/12/2024 10:15 AM EDT) Anatomical Region Laterality Modality Breast Bilateral Mammography 05/12/2024 10:1 5 AM EDT Narrative 06/02/2024 10:40 PM EDT ? [facility] [place] ? [address] ?[place] [address] ? Mammography Report ? Signed ? Patient: Chasity David,Renata ?MR#: [id number] ?? [id number] ? : 1970 ?Acct:[id number] ? Age/Sex: 54 / F ?ADM Date: 05/12/24 ? Loc: HO.MAMMO ? Attending Dr: Renetta Pedro MD ? Ordering Physician: Renetta Gómez MD ?Results: ?? 1Negative ? Date of Service: 05/12/ ?Follow Up: 1 Year From Orig ?? inal Mammogram ? Procedure(s): MM tomosynthesis screening BI ?? Accession Number(s): [id number] ? cc: Renetta Gómez MD ? EXAMINATION: [...] DD/ 1015 ? TD/TT: 05/12/24 1030 ? Data Analyst: ? Procedure Note Ricki, Gerber - 06/02/2024 [facility] [address] [place], [place] [address] Mammography Report Signed Patient: Julia Gusman#: [id number] : 1970Acct:[id number] Age/Sex: 54 / FADM Date: 05/12/24 Loc: HOSlyMAMMO Attending Dr: Renetta Pedro MD Ordering Physician: Renetta Gómez MDResults: 1Negative Date of Service: 05/12/24Follow Up: 1 Year From Orig ina Mammogram Procedure(s): MM tomosynthesis screening BI Accession Number(s): [id number] cc: Renetta Gómez MD EXAMINATION: MM SCREENING [...] 06/02/24 2237 DD/ 1015 TD/TT: 05/12/24 1030 Data Analyst: us Renetta Pedro MD IMG BI PROCEDURES Nael aftab Result - Final * HIV Ab/Ag ([place] [facility]) (07/02/2023 8:37 AM EDT) HIV AB/AG Nonreactive Nonreactive [facility] Comment:HIV-1 p24 Ag and/or HIV-1/HIV-2 Ab not detected.A test result that is nonreactive does not exclude thepossibility of exposure to or infection with HIV-1 and/orHIV-2. Nonreactive results in this assay for individualswith prior exposure to HIV-1 and/or HIV-2 may be due toantigen and antibody levels that are below the limit ofdetection of this assay.[employer]niB-Obvious HIV Ag/Ab Combo assay result andsupplemental assay results should be interpreted inconjunction with the patient's clinical presentation,history and other laboratory results. If the results areinconsistent with clinical evidence, additional testing issuggested to confirm the result. 07/02/2023 8:37 AM EDT 07/02/2023 11:24 AM EDT Renetta Pedro MD LAB BLOOD ORDERABLES Final Result [facility] [address] [place] [phone] * Hm Colonoscopy (09/15/2022) Colonoscopy Normal Normal Narrative Celia Centeno - 09/15/2022 Repeat Colonoscopy in 5 years due to fair prep or earlier if clinically indicated . See external hospital admission note on 09/15/2022(book marked ) Historical Provider HEALTH MAINTENANCE Final Result * [...] ORDERABLE LABS Final Result Performing Organization Address [facility] Co de Phone Number [facility] * HPV DNA, HIGH RISK, CERVICAL (05/08/2020 3:09 PM EDT) HPV DNA, HIGH RISK, CERVICAL Not Detected NOT DETECTED [facility] Comment: Not Detected ?? High Risk HPV types (16,18,31,33,35,39,45,51,52, 56,58,59,66,68) were not detected. Other HPV types which cause anogenital lesions may be present. The significance of the other types of HPV in malignant processes has not been established. ?? Methodology: Real Time PCR ? 05/08/2020 3:09 PM EDT [facility] Rosa Pedro MD HISTORICAL/NON ORDERA BLE LABS Final Result Performing Organization Address [facility] de Phone Number [facility] [address] * THINPREP TIS PAP (05/08/2020 3:09 PM EDT) Clinical Information: SEE COMMENT [facility] Comment:None given COMMENT SEE COMMENT [...] has been evaluated with computer assisted technology. Field Technical Support Consultant: SEE COMMENT [facility] Comment: LT, CT(ASCP) CT screening location: [address] ??[phone] Infection SEE COMMENT [facility] Comment: Shift in vaginal zeina suggestive of bacterial vaginosis. Interpretation/Resu lt: SEE COMMENT [facility] Comment:Negative for intraep ithelial lesion or malignancy. LMP: SEE COMMENT [facility] Comment:NONE GIVEN Prev. BX: NONE GIVEN [facility] Prev. PAP: SEE COMMENT [facility] Comment:NONE GIVEN SOURCE: SEE COMMENT [facility] Comment:None given Statement Of Adequacy: SEE COMMENT [facility] Comment: Satisfactory for evaluation. Endocervical/transformation zone component present. Age and/or menstrual status not provided 05/08/2020 3:09 PM EDT us Renetta Pedro MD LAB PATHOLOGY ORDERAB LES Final Result [facility] [address] from Last 3 Months or Most Recently Relevant to Health Maintenance Insurance [facility] C3 * Guarantor: Renata Gusman Account Type Relation to Patient Date of Phone Billing Address Personal/Family Self [address] [place] [address] * Guarantor: Renata Gusman Account Type Relation to Patient Date of Phone Billing Address Personal/Family Self [address] [place] [address] Care Teams Grain Combine Driver Relationship Specialty Start Date End Date Renetta Gómez MD [address] [place] [phone] PCP - General Family Medicine 12/29/18
--- OUTSIDE RECORDS SUMMARY | 2025-01-23 13:47 | XMS_ITS | Clinical Summary ---
Author Organization [address] [facility] Address [address] [place] [address] Phone Care Team Providers Care Smart Energy Specialist Name Role Phone Renetta Gómez MD [...] pain 06/13/2024 T2DM (type 2 diabetes mellitus) ([facility] V24, CM S/[facility] V28) 06/13/2024 Encounters Date Type Department Care Team Description 01/16/2025 1:00 PM EDT Office Visit [facility] [address] [facility] [address] [place] [address] Ed Cowart, DPM Dermatophytosis of nail (Primary Dx); Diabetic mononeuropathy simplex ([facility] V24, [facility] V28); Acquired hammer toe of right foot; Hammer toe of left foot; Type II diabetes mellitus with peripheral circulatory disorder ([facility] V24, [facility] V28) from Last 3 Months Social History [...] 1:45 PM EDT Office Visit [facility] [address] [phone] Ed Cowart, DPM [address] [address] Health Maintenance Due Date Last Done Comments [...] topic Insurance MEDICAID - [place] Care Teams Smart Energy Specialist Relationship Specialty Start Date End Date Renetta Gómez MD [address] [place] [phone] PCP - General 08/25/23
--- OUTSIDE RECORDS SUMMARY | 2025-01-23 13:47 | XMS_ITS | Encounter Summary ---
Author Organization [employer] Address [address] [facility] [address]t [place] [address] Care Team Providers Care Career Law Clerk Name Role Phone Renetta Gómez MD Primary Care Provide r Reason for Visit * Reason Comments Med Refill Encounter Details Date Type Department Care Team (Late Contact Info) Description 06/16/2023 Refill [facility] [address] [place] [address] Roxana Quinonez MD [address] [place] [address] Social History Tobacco Use Types Packs/Day Years [...] [facility] [address] [place] [address] Betina De La Rosa, OD [address] [place] [address] documented as of this encounter Visit Diagnoses Not on filedocumented in this encounter Additional Health Concerns Assessment Noted Time PHQ-9 Depression Total Score: 0 04/06/20 23 10:11 AM EDT documented as of this encounter Care Teams Career Law Clerk Relationship Specialty Start Date End Date Renetta Gómez MD [address] [place] [address] PCP - General Family Medicine 12/29/18 documented as of this encounter
--- OUTSIDE RECORDS SUMMARY | 2025-01-23 13:47 | XMS_ITS | Encounter Summary ---
Author Organization [facility] Address [address] [place] [address] [address]t [place] [address] Care Team Providers Care Belt And Link Assembly Supervisor Name Role Phone Renetta Gómez MD Primary Care Provide r Reason for Visit * Reason Comments Med Refill Encounter Details Date Type Department Care Team (Late Contact Info) Description 03/24/2023 Refill [facility] [address] [place] [address] Roxana Quinonez MD [address] [place] [address] Social History Tobacco Use Types Packs/Day Years [...] 2:00 PM EDT Office Visit [facility] [address] [place] [address] Betina De La Rosa, OD [address] [place] [address] documented as of this encounter Visit Diagnoses Not on filedocumented in this encounter Care Teams Belt And Link Assembly Supervisor Relationship Specialty Start Date End Date Renetta Gómez MD [address] [place] [address] PCP - General Family Medicine 12/29/18 documented as of this encounter
--- OUTSIDE RECORDS SUMMARY | 2025-01-23 13:47 | XMS_ITS | Encounter Summary ---
Author Organization [employer] Address [address] [facility] [address] [place] [address] Care Team Providers Care Sweatband Cutting Machine Operator Name Role Phone Renetta Gómez MD Primary Care Provide r Reason for Visit * Reason Onset Date Comments PT-1 11/08/2024 Encounter Details Date Type Department Care Team ([facility] st Contact Info) Description 11/08/2024 Telephone [facility] [address] [place], [place] [phone] Renetta Gómez MD [address] [place] [address] PT-1 Social History Tobacco Use Types Packs/Day [...] Y/N: Yes Provider name or facility name: [address] [place] [address] Dr. Wolfe 203 Escort needed: Y/N: No Do you have a wheelchair: Y/N: No If yes- Manual or electric: Visits: (4) ( monthly) documented in this encounter Plan of Treatment Upcoming Encounters Date Type Department Care Team (Late st Contact Info) Description 04/10/2025 2:00 PM EDT Office Visit [facility] OPT[facility] [address] [place] [address] Rj, Betina, OD [address] [place] [address] documented as of this encounter Visit Diagnoses Not on filedocumented in this encounter Additional Health Concerns Assessment Noted Time PHQ-9 Depression Total Score: 0 04/06/20 23 10:11 AM EDT documented as of this encounter Care Teams Sweatband Cutting Machine Operator Relationship Specialty Start Date End Date Renetta Gómez MD [address] [place] [address] PCP - General Family Medicine 12/29/18 documented as of this encounter
--- OUTSIDE RECORDS SUMMARY | 2025-01-23 13:47 | XMS_ITS | Encounter Summary ---
Author Organization [employer] Address [address] [facility] [address] [place] [address] Care Team Providers Care Heating And Blending Supervisor Name Role Phone Renetta Gómez MD Primary Care Provide r Reason for Visit * Reason Comments Med Refill Encounter Details Date Type Department Care Team (Late st Contact Info) Description 09/25/2023 Refill [facility] [address] [place], [place] [phone] Renetta Gómez MD [address] [place], [place] [phone] Hypothyroidism, unspecified type Social History Tobacco Use [...] Description 04/10/2025 2:00 PM EDT Office Visit [facility] [address] [place] [address] Betina De La Rosa, OD [address] [place], [place] [phone] documented as of this encounter Visit Diagnoses Diagnosis Hypothyroidism, unspecified type documented in this encounter Additional Health Concerns Assessment Noted Time PHQ-9 Depression Total Score: 0 04/06/20 23 10:11 AM EDT documented as of this encounter Care Teams Heating And Blending Supervisor Relationship Specialty Start Date End Date Renetta Gómez MD [address] [place] [address] PCP - General Family Medicine 12/29/18 documented as of this encounter
--- OUTSIDE RECORDS SUMMARY | 2025-01-23 13:47 | XMS_ITS | Encounter Summary ---
Author Organization [employer] Address [address] [facility] [address] [place] [address] Care Team Providers Care Clinical Pathologist Name Role Phone Renetta Gómez MD Primary Care Provide r Reason for Visit * Reason Comments Med Refill Encounter Details Date Type Department Care Team (Late Contact Info) Description 12/02/2022 Refill [facility] [address] [place], [place] [phone] Fannie Ceron MD [address] [place] [address] Type 2 diabetes mellitus without complication, unspecified whether exterminator insulin use (CMS/HCC) Social History Tobacco Use [...] 2:00 PM EDT Office Visit [facility] OPTOMETRY [address] [place], [place] [phone] Betina De La Rosa OD [address] [place] [address] documented as of this encounter Visit Diagnoses Diagnosis Type 2 diabetes mellitus without complication, unspecified whether detention insulin use (CMS/HCC) documented in this encounter Care Teams Clinical Pathologist Relationship Specialty Start Date End Date Renetta Gómez MD [address] [place] [address] PCP - General Family Medicine 12/29/18 documented as of this encounter
== END 2025-01-23 13:35 | disposition home or self-care (01) ==
LOC: HO.HGI 12:46
PROVIDERS: PCP Internal Medicine; Visit Provider Nurse Practitioner Family
DX: K74.69 Other cirrhosis of liver (principal); K59.04 Chronic idiopathic constipation; K21.9 Gastro-esophageal reflux disease without esophagitis; R74.01 Elevation of levels of liver transaminase levels
CPT/HCPCS: 99214

== ENCOUNTER → 2025-01-23 12:46 | Outpatient (BNVA) | payer MEDICAID, SELFPAY | PROVIDERS: PCP Internal Medicine; Visit Provider Nurse Practitioner Family | DX: K74.69 Other cirrhosis of liver (principal); K59.04 Chronic idiopathic constipation; K21.9 Gastro-esophageal reflux disease without esophagitis; R74.01 Elevation of levels of liver transaminase levels | CPT/HCPCS: 99212 ==

== ENCOUNTER 2025-02-07 11:48 | Outpatient (AMB) | payer MEDICAID, SELFPAY ==
--- NOTE | 2025-02-06 16:55 | A.OFFVIS_ITS ---
Vital Signs 02/07/25 12:24 Height 5 ft 4 in Weight 152 lb 1.903 oz BMI 26.1 BP 116/66 Blood Pressure Location Rt brachial Position Sitting Pulse 85 Pulse Source Pulse Oximeter Pulse Oximetry (%) 96 Oxygen Delivery Method Room Air Intake Visit Reasons: T2DM Intake Note: Patient presents today for a follow-up on Type 2 Diabetes Mellitus: Last Diabetic eye exam was on: 01/12/2024 Last Podiatry exam was on: Patient does not see a Line Clearance Foreman Most recent HbA1c: 6.3%, 02/07/2025 Random Glucose- 128 mg/dL, Today Trim Attacher Required: Yes Trim Attacher Language: Reports Analysis Manager Services: Trim Attacher Present Accompanied by: Significant Other Allergies seafood Allergy (Severe, Verified 01/23/25 13:07) throat closes codeine [Tylenol-Codeine] Allergy (Intermediate, Verified 01/23/25 13:07) rash HPI Comments Details: Patient is a 54 year-old female with DM type 2 diagnosed approximately 2016 who presents for continued management of diabetes. The patient was last seen 10/06/24 with an hgbA1C of 6.6% Hgb A1C 02/06/25% Hgb A1C 7.5% 05/31/24 down from 8.8% 03/08/24 Medications previously on: jardiance stopped due to side effects and is intolerant to metformin, Hgb A1C 7.5% today in the office 8.8% on 03/08/24 down from 9.2% 10/2023. On arrival to the clinic today glucose was 76 and she was given 21 carb gram of gingerale at 2:04pm micro vascular and macrovascular complications: + nephropathy, + neuropathy, Diabetes medications: Tresiba 80 units Humalog 32 units TID (14 units for ensure) Ozempic 2.0 mg weekly tolerating this well Dexcom average glucose: 139 14 day continuous glucose monitor report reviewed Glucose Managment indicator 6.6 % TIme in ranges: 0 % very high (above 250) 12 % high ?(181-250) 87 % in range ?(70-180] 1 % low (69-55) 0 % ?very low (below 54) Interpretation excellent control without hypoglycemia last eye exam 01/2025 was getting injections in the past has f/u in 4 months +nephropathy 10/17/24 EGFR greater than 60 microalbumin 33 06/2024 + neuropathy: She reports some numbness and tingling, denies cramping in lower extremities Hypoglycemia: occasionally Hyperglycemia: denies urinary frequency, + nocturia (1x/night) + polydypsia HLD on statin ldl 57 05/05 Exercise: She has been walking less Eye exam: appt 09/2023 On thyroid replacment: TSH 4.25 06/3024 Levothyrxine 50mcg (increased from 25 mcg) repeat lab in good range 10/17/24 tsh 1.85 PFSH Medical History Carpal tunnel syndrome, right Liver cirrhosis Hyperlipidemia Hepatitis C Elevated liver enzymes Hypothyroidism Depression Fibromyalgia Asthma Type 2 diabetes mellitus with diabetic polyneuropathy Type 2 diabetes mellitus with hyperglycemia, with long-term current use of insulin watermaster current use of insulin Chronic kidney disease, stage 3 Surgical History (Updated 02/07/25 @ 12:29 by Jason Shukla Rosa) Hx of elbow surgery Hx of colonoscopy Hx of hand surgery Hx of biopsy H/O oral surgery Family History Mother Diabetes Asthma Kidney stones HTN (hypertension) Brother Diabetes Father Bloodstream infection Social History Household Members: Spouse Are you a primary family member caretaker to a significant other at home: No Do you presently have visiting nurse or other home services: No Alcohol intake: current Alcohol intake frequency: does not drink Patient Tobacco Use Status: Never used Tobacco Current occupational status: disabled Physical Exam Vital Signs: Last Vital Signs Pulse 85 02/07/25 12:24 BP 116/66 02/07/25 12:24 Pulse Ox 96 02/07/25 12:24 Oxygen Delivery Method Room Air 02/07/25 12:24 BMI result Body Mass Index 26.1 Results AMB Hemoglobin A1c AMB Hemoglobin A1c 6.3 % Last Edit by MARANDA Alonzo on 02/07/25 12:40 Results Reviewed Results Reviewed: Laboratory Last Values Glucose (Clinic) 128 mg/dL (60-115) H 02/07/25 12:31 Hgb A1c (Clinic) 6.3 % (4.0-6.0) H 02/07/25 12:34 Assessment & Plan Assessment & Plan Orders: Orders AMB Hemoglobin A1c Today E11.65 - Type 2 diabetes mellitus with hyperglycemia, Z79.4 - watermaster (current) use of insulin Coding
[2025-02-07 12:24] VITALS: BP 116/66; PULSE 85; O2SAT 96; BMI 26.1
[2025-02-07 12:35] LABS: Glucose, Whole Blood 128 mg/dL (60-115)
--- OUTSIDE RECORDS SUMMARY | 2025-02-07 12:39 | XMS_ITS | Encounter Summary ---
Author Organization [employer] Address [address] [facility] [address] [place] [address] Care Team Providers Care Textile Coating Machine Operator Name Role Phone Renetta Gómez MD Primary Care Provide r Reason for Visit * Reason Comments Med Refill Encounter Details Date Type Department Care Team (Late st Contact Info) Description 09/25/2023 Refill [facility] [address] [place], [place] [phone] Renetta Gómez MD [address] [place], [place] [phone] Hypothyroidism, unspecified type Social History Tobacco Use [...] Visit [facility] [address] [place] [address] Betina De La Rosa, OD [address] [place] [address] documented as of this encounter Visit Diagnoses Diagnosis Hypothyroidism, unspecified type documented in this encounter Additional Health Concerns Assessment Noted Time PHQ-9 Depression Total Score: 0 04/06/20 23 10:11 AM EDT documented as of this encounter Care Teams Textile Coating Machine Operator Relationship Specialty Start Date End Date Renetta Gómez MD [address] [place] [address] PCP - General Family Medicine 12/29/18 documented as of this encounter
== END 2025-02-07 13:03 | disposition home or self-care (01) ==
LOC: HO.ENCR 11:49
PROVIDERS: PCP Internal Medicine; Visit Provider Nurse Practitioner Adult Health
DX: E11.65 Type 2 diabetes mellitus with hyperglycemia (principal); Z79.4 Long term (current) use of insulin

== ENCOUNTER → 2025-02-07 11:48 | Outpatient (BNVA) | payer MEDICAID, SELFPAY | PROVIDERS: PCP Internal Medicine; Visit Provider Nurse Practitioner Adult Health | DX: E11.22 Type 2 diabetes mellitus with diabetic chronic kidney disease (principal); N18.30 Chronic kidney disease, stage 3 unspecified | CPT/HCPCS: 82947; 83036; 99212 ==

== ENCOUNTER 2025-02-09 08:20 | Outpatient (REF) | payer MEDICAID, SELFPAY ==
--- OUTSIDE RECORDS SUMMARY | 2025-02-09 08:23 | XMS_ITS | Encounter Summary ---
Author Organization [employer] Address [address] [facility] [address] [place] [address] Care Team Providers Care Sifter And Miller Name Role Phone Renetta Gómez MD Primary Care Provide r Reason for Visit * Reason Comments Med Refill Encounter Details Date Type Department Care Team (Late st Contact Info) Description 09/25/2023 Refill [facility] [address] [place], [place] [phone] Renetta Gómez MD [address] [place], [place] [phone] Hypothyroidism, unspecified type Social History Tobacco Use [...] Description 04/10/2025 2:00 PM EDT Office Visit [facility] [address] [place] [address] Betina De La Rosa, OD [address] [place] [address] documented as of this encounter Visit Diagnoses Diagnosis Hypothyroidism, unspecified type documented in this encounter Additional Health Concerns Assessment Noted Time PHQ-9 Depression Total Score: 0 04/06/20 23 10:11 AM EDT documented as of this encounter Care Teams Sifter And Miller Relationship Specialty Start Date End Date Renetta Gómez MD [address] [place] [address] PCP - General Family Medicine 12/29/18 documented as of this encounter
[2025-02-09 09:36] LABS: Alanine Aminotransferase 49 U/L (0-31); Albumin Level 4.3 g/dL (3.5-5.0); Alkaline Phosphatase 126 U/L (39-117); Aspartate Amino Transferase 44 U/L (5-31); Bilirubin Direct 0.3 mg/dL (0.0-0.5); Bilirubin Total 0.8 mg/dL (0.0-1.0); Total Protein 7.8 g/dL (6.5-8.0)
[2025-02-17 23:24] LABS: FIB-ALT 35 U/L (6-29); FIB-Alpha-2-Macroglobulin 447 mg/dL (106-279); FIB-Apolipoprotein A1 147 mg/dL (101-198); FIB-GGT 183 U/L (3-70); FIB-Haptoglobin 80 mg/dL (43-212); FIB-Total Bilirubin 0.7 mg/dL (0.2-1.2); Liver Fibrosis Score 0.81; Liver Fibrosis Stage F4; Nec Inflam Act Grade A1; Nec Inflam Act Score 0.33
== END 2025-02-09 08:21 | disposition home or self-care (01) ==
LOC: HO.LAB 08:20
PROVIDERS: PCP Internal Medicine; Visit Provider Nurse Practitioner Family
DX: R74.01 Elevation of levels of liver transaminase levels (principal); K76.0 Fatty (change of) liver, not elsewhere classified; G56.21 Lesion of ulnar nerve, right upper limb; G56.01 Carpal tunnel syndrome, right upper limb; M72.0 Palmar fascial fibromatosis [Dupuytren]; R09.89 Other specified symptoms and signs involving the circulatory and respiratory systems
CPT/HCPCS: 36415; 80076; 81596; 99212

== ENCOUNTER 2025-02-09 09:28 | Outpatient (AMB) | payer MEDICAID, SELFPAY ==
[2025-02-09 09:45] VITALS: BMI 26.1
--- NOTE | 2025-02-09 09:45 | A.OFFVIS_ITS ---
Vital Signs 02/09/25 09:45 Height 5 ft 4 in Weight 152 lb BMI 26.1 Intake Visit Reasons: PO - Right Cubital & Carpal Tunnel Release 12/18/24 Intake Note: Renata is a 54 year old right hand dominant, Gambian speaking, female who presents today for a post operative s/p Right Cubital and Carpal Tunnel Release 12/18/24. At her last visit an ultrasound was ordered due to delayed capillary refill. States she continues to have CTS, pain and tender around her elbow. Impression: 1. Triphasic and biphasic flow demonstrated. 2. No occlusive disease demonstrated Allergies seafood Allergy (Severe, Verified 02/09/25 09:53) throat closes codeine [Tylenol-Codeine] Allergy (Intermediate, Verified 02/09/25 09:53) rash HPI HPI PO - Right Cubital & Carpal Tunnel Release 12/18/24: Details: Renata is a 54 year old right hand dominant, Gambian speaking, female who presents today for a post operative s/p Right Cubital and Carpal Tunnel Release 12/18/24. At her last visit an ultrasound was ordered due to delayed capillary refill. States she continues to have CTS, pain and tender around her elbow. Impression: 1. Triphasic and biphasic flow demonstrated. 2. No occlusive disease demonstrated PFSH Medical History Carpal tunnel syndrome, right Liver cirrhosis Hyperlipidemia Hepatitis C Elevated liver enzymes Hypothyroidism Depression Fibromyalgia Asthma Type 2 diabetes mellitus with diabetic polyneuropathy Type 2 diabetes mellitus with hyperglycemia, with long-term current use of insulin jail current use of insulin Chronic kidney disease, stage 3 Surgical History (Updated 02/07/25 @ 12:29 by Jason Shukla [facility]) Hx of elbow surgery Hx of colonoscopy Hx of hand surgery Hx of biopsy H/O oral surgery Family History Mother Diabetes Asthma Kidney stones HTN (hypertension) Brother Diabetes Father Bloodstream infection Social History Household Members: Spouse Are you a primary healthcare architect to a significant other at home: No Do you presently have visiting nurse or other home services: No Alcohol intake: current Alcohol intake frequency: does not drink Patient Tobacco Use Status: Never used Tobacco Current occupational status: disabled Review of Systems Const All systems reviewed & are unremarkable except as noted in HPI and below Physical Exam Vital Signs: BMI result Body Mass Index 26.1 Extrem Other: Patient is alert, oriented, and in no acute distress. Neuro: Normal sensation of the tips of all digits of the right hand at this time Vascular: Cap refill brisk Pain: No tenderness to palpation about this incision sites in the volar left wrist or medial left elbow Some pain with range of motion of the left hand ROM: Patient is able to make a closed fist and extend all digits of the left hand fully and without difficulty Skin: No lacerations or abrasions. General: No ecchymosis, erythema, or evidence of infection. Vascular: 2+ radial pulses bilaterally Left hand noted to be slightly cooler to the touch than the right hand, improved from previous visit Psych: Appears grossly normal Affect normal Attitude cooperative Assessment & Plan Assessment & Plan (1) Carpal tunnel syndrome, right: Code(s): G56.01 - Carpal tunnel syndrome, right upper limb Category: Medical (2) Cubital tunnel syndrome on right: Code(s): G56.21 - Lesion of ulnar nerve, right upper limb Category: Medical (3) Dupuytren's contracture of right hand: Code(s): M72.0 - Palmar fascial fibromatosis [Dupuytren] Category: Medical (4) Prolonged capillary refill time: Code(s): R09.89 - Other specified symptoms and signs involving the circulatory and respiratory systems Category: Medical Plan 1. Delayed capillary refill of right hand 2. Status post right cubital tunnel release 3. Status post right carpal tunnel release DOS 12/18/2024 Ultrasound negative for any acute process or blood clot Due to limited range of motion, patient is referred to OT for range of motion and strengthening of the left hand, wrist, elbow Patient is amenable to this plan With regards to cubital and carpal tunnel releases, incisions appear to be healing quite well No other concerns at this time Follow-up as needed Orders: Orders OT Evaluation and Treatment Today G56.01 - Carpal tunnel syndrome, right upper limb, G56.21 - Lesion of ulnar nerve, right upper limb, M72.0 - Palmar fascial fibromatosis [Dupuytren] Coding Level of Care Code Global (00719) Diagnoses Carpal tunnel syndrome, right G56.01 Cubital tunnel syndrome on right G56.21 Dupuytren's contracture of right hand M72.0 Prolonged capillary refill time R09.89
== END 2025-02-09 10:10 | disposition home or self-care (01) ==
LOC: HO.HOS 09:29
PROVIDERS: PCP Internal Medicine
DX: G56.01 Carpal tunnel syndrome, right upper limb (principal); G56.21 Lesion of ulnar nerve, right upper limb; M72.0 Palmar fascial fibromatosis [Dupuytren]; R09.89 Other specified symptoms and signs involving the circulatory and respiratory systems
CPT/HCPCS: 99024

== ENCOUNTER 2025-03-15 07:46 | Outpatient (REF) | payer MEDICAID, SELFPAY ==
--- NOTE | ~2025-03-15 | US_ITS ---
EXAMINATION: US ABDOMEN LIMITED WITH LIVER ELASTOGRAPHY HISTORY: K76.0 - Fatty (change of) liver, not elsewhere classified TECHNIQUE: Real-time grayscale ultrasound imaging of the right upper quadrant was performed and images were reviewed. COMPARISON: Comparison is made with the prior examination dated 03/13/2024. FINDINGS: Liver: The right lobe of the liver measures 12.6 cm in size. The left lobe of the liver measures 11.6 cm in size. The liver demonstrates coarsened, increased echotexture, consistent with steatosis. No focal mass or intrahepatic biliary ductal dilatation is identified. There is normal hepatopedal flow in the portal vein. Ultrasound elastography of the liver was performed with 10 separate measurements of the liver parenchyma with the patient in the supine position. Measurements were obtained approximately 2 cm below My's capsule and perpendicular to the capsule. The median shear wave velocity is 1.27 m/s (previously 1.36 m/s). The interquartile range/median (IQR/median) is 0.37. Gallbladder and biliary tree: There are multiple shadowing calculi in the gallbladder. There is no wall thickening or pericholecystic fluid. There is no sonographic Hillman sign. The common bile duct is normal in caliber measuring 2 mm. Right Kidney: The right kidney measures 11.0 cm in length. There is mild fullness of the right renal collecting system. No masses or calculi are identified. Pancreas: The pancreatic head, neck, and body are unremarkable. The pancreatic tail is obscured by bowel gas. Abdominal aorta and inferior vena cava: The visualized portions of the abdominal aorta and inferior vena cava are normal in caliber. There is no free fluid in the right upper quadrant. US/US abdomen nunez w elastography IMPRESSION: Hepatic steatosis. Cholelithiasis. The median shear wave velocity in the liver is 1.27 m/s, corresponding to a median liver stiffness of 4.94 kPa. The IQR/median value is 0.37. This is indicative of a poor quality data set, and the estimated liver stiffness may be unreliable. Findings are indicative of a normal elastography value with a low likelihood of severe fibrosis or cirrhosis. REFERENCE: Society of Radiologists in Ultrasound Liver Stiffness Thresholds (2020): LIVER STIFFNESS THRESHOLDS: *Shear wave velocity less than 1.3 m/s (Liver Stiffness equal or less than 5 kPa): High probability of being normal. *Shear wave velocity less than 1.7 m/s (Liver Stiffness less than 9 kPa): In the absence of other known clinical signs, rules out compensated advanced chronic liver disease. *Shear wave velocity between 1.7-2.1 m/s (Liver Stiffness 9-13 kPa): Suggestive of compensated advanced chronic liver disease but need further test for confirmation. *Shear wave velocity between 2.1-2.4 m/s (Liver Stiffness 13-17 kPa): Rules in compensated advanced chronic liver disease. *Shear wave velocity greater than 2.4 m/s (Liver Stiffness over 17 kPa): Suggestive of clinically significant portal hypertension. QUALITY OF DATA SET: *IQR/Median value equal or less than 0.15 implies a quality data set. *IQR/Median value over 0.15 implies a poor quality data set. SIGNIFICANT CHANGE FROM PRIOR EXAM: Significant change if liver stiffness measurement is 10% or greater from prior exam. OTHER CONSIDERATIONS: The stage of liver fibrosis may be overestimated in the setting of acute hepatitis, liver inflammation, elevated liver function tests, hepatic vascular congestion, obstructive cholestasis, non-fasting state, and infiltrative diseases such as amyloidosis and lymphoma. In some patients with NAFLD, the liver stiffness thresholds for compensated advanced chronic liver disease may be lower. In causes other than viral hepatitis and NAFLD, liver stiffness thresholds are not well established. Electronically signed by: Justin Marin MD 03/15/2025 08:42 AM EDT
--- OUTSIDE RECORDS SUMMARY | 2025-03-15 07:49 | XMS_ITS | Clinical Summary ---
Author Organization [facility] Address [address] [place] [address] Phone Care Team Providers Care Vamp Throater Name Role Phone Renetta Gómez MD Primary Care Provide r Allergies Active Allergy Reactions Criticality Noted Date Comments Acetaminophen-Codeine 06/13/2024 Shellfish Derived 06/13/2024 Medications clotrimazole (LOTRIMIN) 1 % cream Apply to skin and toenails daily for 12 weeks 4 Active ketoconazole (NIZORAL) 2 % cream Apply topically 1 (one) time each day. 30 g 2 5 Active Active Problems Problem Noted Date Diagnosed Date Onychomycosis 06/13/2024 Pruritus 06/13/2024 Right hand pain 06/13/2024 T2DM (type 2 diabetes mellitus) ([facility] V24, [facility] V28) 06/13/2024 Encounters Date Type Department Care Team Description 01/16/2025 1:00 PM EDT Office Visit Orthopedic Surgery [facility] [address] [facility] [address] [place] [phone] Ed Cowart, DPM Dermatophytosis of nail (Primary Dx); Diabetic mononeuropathy simplex ([facility] V24, [facility] V28); Acquired hammer toe of right foot; Hammer toe of left foot; Type II diabetes mellitus with peripheral circulatory disorder ([facility] V24, [facility] V28) from Last 3 Months [...] PM EDT Office Visit Orthopedic Surgery - [place] [id number] [phone] Ed Cowart, DPM [address] [address] Health Maintenance Due Date Last Done Comments [...] Blood Sugar Control Test (HGBA1C) 04/04/2025 10/05/2024 Influenza Vaccine (#1) 2025 , 08/23/2023, 08/04/2022, Additional history exists Cholesterol Screening (Lipid Panel) 07/12/2029 07/12/2024 DTaP,Tdap,and Td Vaccines (2 - Td or Tdap) 12/08/2033 12/09/2023 Zoster Vaccines Completed 09/10/2021, 07/10/2021 Hepatitis A Vaccines Completed 03/02/2023, 08/18/20 Hepatitis B Vaccines Completed 03/02/2023, 10/06/2022, 08/18/2022 Pneumococcal Vaccine: 50+ Years Completed 03/15/2024 Pneumococcal Vaccine: Pediatrics (0 to 5 Years) and At-Risk Patients (6 to 64 Years) Completed 03/15/2024 HIB Vaccines Aged Out No longer eligi [...] topic Insurance MEDICAID - [place] Care Teams Vamp Throater Relationship Specialty Start Date End Date Renetta Gómez MD [address] [phone] PCP - General 08/25/23
--- OUTSIDE RECORDS SUMMARY | 2025-03-15 07:49 | XMS_ITS | Encounter Summary ---
Author Organization [employer] Address [address] [facility] [address]t [place] [address] Care Team Providers Care Pharmacy Informaticist Name Role Phone Renetta Gómez MD Primary Care Provide r Reason for Visit * Reason Comments Med Refill Encounter Details Date Type Department Care Team (Late st Contact Info) Description 09/25/2023 Refill [facility] [address] [place], [place] [phone] Renetta Gómez MD [address] [place], [place] [phone] Hypothyroidism, unspecified type Social History Tobacco Use [...] Team (Late st Contact Info) Description 04/10/2025 10:45 AM EDT Office Visit [facility] MEDICINE [address] [place] [address] Renetta Gómez MD [address] [place] [address] 04/10/2025 2:00 PM EDT Office Visit [facility] OPTOMETRY [address] [place] [address] Rj, Betina, OD [address] [place] [address] documented as of this encounter Visit Diagnoses Diagnosis Hypothyroidism, unspecified type documented in this encounter Additional Health Concerns Assessment Noted Time PHQ-9 Depression Total Score: 0 04/06/20 23 10:11 AM EDT documented as of this encounter Care Teams Pharmacy Informaticist Relationship Specialty Start Date End Date Renetta Gómez MD [address] [place] [address] PCP - General Family Medicine 12/29/18 documented as of this encounter
== END 2025-03-15 07:47 | disposition home or self-care (01) ==
LOC: HO.US 07:46
PROVIDERS: PCP Internal Medicine; Visit Provider Nurse Practitioner Family
DX: K76.0 Fatty (change of) liver, not elsewhere classified (principal)
CPT/HCPCS: 76705; 76981

== ENCOUNTER → 2025-03-15 07:49 | Outpatient (BNV) | payer MEDICAID, SELFPAY | PROVIDERS: PCP Internal Medicine; Visit Provider Radiology Diagnostic Radiology | DX: K76.0 Fatty (change of) liver, not elsewhere classified (principal) | CPT/HCPCS: 76705 ==

== ENCOUNTER 2025-05-03 14:16 | Outpatient (RCR) | payer MEDICAID, SELFPAY ==
--- NOTE | 2025-03-28 14:15 | MHC.OT.EP ---
[address] [phone] Occupational Therapy Plan of Care Patient Name: Renata David Date of Evaluation: 03/28/25 Diagnosis: s/p right cubital and carpal tunnel release Pain Location: Right wrist pain Current: 7/10 Worst: 9/10 Pain Score: 7 Pain Scale Used: Numeric (0 - 10) Aggravating Factors: Forceful grasp Alleviating Factors: Heat Assessment: Pt is a 54 y/o right hand dominant female, referred to OT s/p right cubital and carpal tunnel release by Dr. Bennett on 12/18/24. At post op-visit, pt continued to c/o right hand pain, numbness, and tenderness around volar wrist and medial elbow scar sites. At her last ortho visit, an ultrasound was ordered due to delayed capillary refill. No occlusive disease was demonstrated. Pt presents with 7/10 pain in right wrist, limited functional use and avoidant behaviors of R UE, decreased gross grasp strength, and decreased coordination. A quick DASH score of 63.6% indicates moderate difficulty with functional tasks. Pt would benefit from skilled OT services to improve ROM, strength, and function of right UE. Frequency and Duration: The patient will be seen 2x/ wk for 4 weeks Short Term Goals: Decrease pain <2/10 with functional tasks Improve right wrist ROM to WNL's Right gross grasp >35# IND with scar massage and progression of HEP Care Home Goals: Same as above Treatment Plan: Therapeutic Exercise Therapeutic Activity Home Exercise Program Patient Education Ultrasound MHP Soft Tissue Mobilization Electronically Signed By: Yuki Myers MS OTR/L Please Sign and return to therapist. Thank you once again for your referral.
== END 2025-06-20 14:25 | disposition home or self-care (01) ==
LOC: HO.OTS 14:16
PROVIDERS: PCP Internal Medicine
DX: G56.01 Carpal tunnel syndrome, right upper limb (principal); G56.21 Lesion of ulnar nerve, right upper limb; M72.0 Palmar fascial fibromatosis [Dupuytren]
CPT/HCPCS: 97035; 97110; 97165

== ENCOUNTER 2025-05-09 12:22 | Outpatient (AMB) | payer MEDICAID, SELFPAY ==
--- NOTE | 2025-05-09 12:38 | A.OFFVIS_ITS ---
Vital Signs 05/09/25 12:43 Height 5 ft 4 in Weight 147 lb 11.355 oz BMI 25.4 Blood Pressure Location Rt brachial Position Sitting Pulse 85 Pulse Source Pulse Oximeter Pulse Oximetry (%) 96 Oxygen Delivery Method Room Air Intake Visit Reasons: T2DM Intake Note: Patient presents today for a follow-up on Type 2 Diabetes Mellitus: Last Diabetic eye exam was on: 04/13/2025, [facility] Last Podiatry exam was on: Patient does not see a Line Construction Engineer Most recent HbA1c: 6.5%, 05/09/2025 Random Glucose- 133 mg/dL, Today Carton Inspector Required: Yes Carton Inspector Language: Fleet Manager Services: Carton Inspector Present Carton Inspector Name: MARANDA Alonzo Accompanied by: Significant Other Allergies seafood Allergy (Severe, Verified 05/09/25 12:39) throat closes codeine (Tylenol-Codeine) Allergy (Intermediate, Verified 05/09/25 12:39) rash HPI Comments Details: Patient is a 55 year-old female with DM type 2 diagnosed approximately 2017 who presents for continued management of diabetes. Medical history: cirrhosis, CKD stage 3, asthma A1C 8.27 6.5% Diabetes medications: Tresiba 80 units Humalog 32 units TID Ozempic 2.0 mg weekly tolerating this well Previous meds: jardiance, metformin-intolerant CGM reviewed: 88% target <1 very low GMI 6.6% Exercise: She has been walking less Eye exam: appt 09/2023 On thyroid replacement: TSH 4.25 06/3024 Levothyrxine 50mcg (increased from 25 mcg) repeat lab in good range 10/17/24 tsh 1.85 ROS CONSTITUTIONAL: Denies weight loss, fever and chills. HEENT: Denies changes in vision and hearing. RESPIRATORY: Denies SOB and cough. CV: Denies palpitations and CP GI: Denies abdominal pain, nausea, vomiting and diarrhea. : Denies dysuria and urinary frequency. MSK: Denies new myalgia and joint pain. SKIN: Denies rash and pruritus. NEUROLOGICAL: Denies headache PSYCHIATRIC: Denies recent changes in mood. PHYSICAL EXAM: GENERAL: Alert and oriented x 3. NAD EYES: EOMI. Anicteric. HENT: Moist mucous membranes. No scleral icterus. No cervical lymphadenopathy. LUNGS: Clear to auscultation bilaterally. CARDIOVASCULAR: Regular rate and rhythm. No murmur. No JVD. ABDOMEN: Soft, non-tender +bs EXTREMITIES: No edema. Non-tender. SKIN: No rashes or lesions. Warm. NEUROLOGIC: No focal neurological deficits. CN II-XII grossly intact PSYCHIATRIC: Cooperative. 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 Chronic kidney disease, stage 3 Surgical History Hx of elbow surgery Hx of colonoscopy Hx of hand surgery Hx of biopsy H/O oral surgery Family History Mother Diabetes Asthma Kidney stones HTN (hypertension) Brother Diabetes Father Bloodstream infection Social History Household Members: Spouse Are you a primary college and career counselor to a significant other at home: No Do you presently have visiting nurse or other home services: No Alcohol intake: current Alcohol intake frequency: does not drink Patient Tobacco Use Status: Never used Tobacco Current occupational status: disabled Physical Exam Vital Signs: Last Vital Signs Pulse 85 05/09/25 12:43 Pulse Ox 96 05/09/25 12:43 Oxygen Delivery Method Room Air 05/09/25 12:43 BMI result Body Mass Index 25.4 Results AMB Hemoglobin A1c AMB Hemoglobin A1c 6.5 % Last Edit by MARANDA Alonzo on 05/09/25 12:56 Results Reviewed Results Reviewed: Laboratory Last Values Glucose (Clinic) 133 mg/dL (60-115) H 08/27/25 12:48 Hgb A1c (Clinic) 6.5 % (4.0-6.0) H 05/09/25 12:54 Assessment & Plan Assessment & Plan (1) Type 2 diabetes mellitus with diabetic chronic kidney disease: Code(s): E11.22 - Type 2 diabetes mellitus with diabetic chronic kidney disease Category: Medical Qualifiers: Diabetes mellitus terminal computer operator insulin use: with terminal computer operator use Chronic kidney disease stage: stage 3 (moderate) Chronic kidney disease stage 3 subtype: unspecified whether 3a or 3b Qualified Code(s): E11.22 - Type 2 diabetes mellitus with diabetic chronic kidney disease; N18.30 - Chronic kidney disease, stage 3 unspecified; Z79.4 - care home (current) use of insulin (2) 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 Decrease dinner insulin to 26units. No other medication changes refills sent Treat hypoglycemia rules of 15s Return in 3 months or sooner as needed Orders: Orders TSH reflex Free T4 Today E03.9 - Hypothyroidism, unspecified, E11.22 - Type 2 diabetes mellitus with diabetic chronic kidney disease Hemoglobin A1c Today E03.9 - Hypothyroidism, unspecified, E11.22 - Type 2 diabetes mellitus with diabetic chronic kidney disease thyroid Today E03.9 - Hypothyroidism, unspecified, E04.9 - Nontoxic goiter, unspecified AMB Hemoglobin A1c Today E11.22 - Type 2 diabetes mellitus with diabetic chronic kidney disease Medications: New Humalog U-100 Insulin (insulin lispro) Take 32 units subcutaneous before breakfast and lunch Take 26 units subcutaneous before dinner 1 sliding scale dose subcut USEASDIRECTD 50 mL 3RF NS E11.22 - Type 2 diabetes mellitus with diabetic chronic kidney disease CareTouch Insulin Syringe (insulin syringe-needle U-100) four times daily 400 ea 3RF NS glucose (Dex4 Glucose) until symptoms of low blood sugar are controlled 4 grams PO Q15M PRN 30 tabs 3RF hypoglycemia Changed From blood-glucose sensor (Dexcom G7 Sensor device) every 10 days 3 ea 11RF E11.22 - Type 2 diabetes mellitus with diabetic chronic kidney disease To Dexcom G7 Sensor (blood-glucose sensor) every 15 days 6 ea 3RF NS E11.22 - Type 2 diabetes mellitus with diabetic chronic kidney disease Discontinued insulin lispro (Humalog U-100 Insulin) Discontinued Reason: Doctor's Order Infused up to 130 units daily via insulin pump subcutaneously use as directed; 30 days 40 mL 6RF Coding Level of Care Code Est Pt Level 4 (34774) Diagnoses Type 2 diabetes mellitus with stage 3 chronic kidney disease, with long-term current use of insulin, unspecified whether stage 3a or 3b CKD E11.22; N18.30; Z79.4 Diabetes mellitus terminal computer operator insulin use: with mcc use Chronic kidney disease stage: stage 3 (moderate) Chronic kidney disease stage 3 subtype: unspecified whether 3a or 3b termite exterminator current use of insulin Z79.4
[2025-05-09 12:43] VITALS: PULSE 85; O2SAT 96; BMI 25.4
[2025-05-09 12:52] LABS: Glucose, Whole Blood 133 mg/dL (60-115)
--- OUTSIDE RECORDS SUMMARY | 2025-05-09 12:57 | XMS_ITS | Encounter Summary ---
Author Organization [employer] Address [address] [facility] 7t [place] [address] Care Team Providers Care Material Mixer Name Role Phone Renetta Gómez MD Primary Care Provide r Reason for Visit * Reason Comments Med Refill Encounter Details Date Type Department Care Team (Late st Contact Info) Description 07/29/2024 Refill [facility] [address] [place], [place] [phone] Renetta Gómez MD [address] [place] [address] Pruritus Social History Tobacco Use Types Packs/Day [...] t he electric, gas, oil or water [employer] threatened to shut off services in your [...] Care Team (Late st Contact Info) Description 10/12/2025 1:30 PM EST Office Visit [facility] OPTOM[facility] [address] [place], [place] [phone] Betina De La Rosa, OD [address] [place] [address] documented as of this encounter Visit Diagnoses Diagnosis Pruritus Unspecified pruritic disorder documented in this encounter Additional Health Concerns Assessment Noted Time PHQ-9 Depression Total Score: 0 04/06/20 23 10:11 AM EDT documented as of this encounter Care Teams Material Mixer Relationship Specialty Start Date End Date Renetta Gómez MD [address] [place] [address] PCP - General Family Medicine 12/29/18 documented as of this encounter
--- OUTSIDE RECORDS SUMMARY | 2025-05-09 12:57 | XMS_ITS | Encounter Summary ---
Author Organization [employer] Address [address] [place] [address] 7t [place] [address] Care Team Providers Care Fashion Design Professor Name Role Phone Renetta Gómez MD Primary Care Provide r Encounter Details Date Type Department Care Team (Late st Contact Info) Description 12/02/2022 Orders Only [facility] MED & PEDS [address] [place] [address] Lizbeth Navarro LPN Social History Tobacco Use [...] Description 10/12/2025 1:30 PM EST Office Visit [facility] OPTOMETRY [address] [place] [address] Betina De La Rosa, OD [address] [place] [address] documented as of this encounter Visit Diagnoses Not on filedocumented in this encounter Care Teams Fashion Design Professor Relationship Specialty Start Date End Date Renetta Gómez MD [address] [place] [address] PCP - General Family Medicine 12/29/18 documented as of this encounter
--- OUTSIDE RECORDS SUMMARY | 2025-05-09 12:57 | XMS_ITS | Encounter Summary ---
Author Organization [employer] Address [address] [facility] 7t [place] [address] Care Team Providers Care Special Procedures Nurse Name Role Phone Renetta Gómez MD Primary Care Provide r Reason for Visit * Reason Onset Date Comments PT-1 11/08/2024 Encounter Details Date Type Department Care Team ([facility] st Contact Info) Description 11/08/2024 Telephone [facility] MEDICINE [address] [place], [place] [phone] Renetta Gómez MD [address] [place] [address] PT-1 Social History Tobacco Use Types Packs/Day [...] Y/N: Yes Provider name or facility name: [address] [place] [address] Dr. Wolfe 203 Escort needed: Y/N: No Do you have a wheelchair: Y/N: No If yes- Manual or electric: Visits: (4) ( monthly) documented in this encounter Plan of Treatment Upcoming Encounters Date Type Department Care Team (Late st Contact Info) Description 10/12/2025 1:30 PM EST Office Visit [facility] OPTOMETRY [address] [place] [address] Rj, Betina, OD [address] [place] [address] documented as of this encounter Visit Diagnoses Not on filedocumented in this encounter Additional Health Concerns Assessment Noted Time PHQ-9 Depression Total Score: 0 04/06/20 23 10:11 AM EDT documented as of this encounter Care Teams Special Procedures Nurse Relationship Specialty Start Date End Date Renetta Gómez MD [address] [place] [address] PCP - General Family Medicine 12/29/18 documented as of this encounter
--- OUTSIDE RECORDS SUMMARY | 2025-05-09 12:57 | XMS_ITS | Encounter Summary ---
Author Organization [employer] Address [address] [facility] 7t [place] [address] Care Team Providers Care Test Development Engineer Name Role Phone Renetta Gómez MD Primary Care Provide r Encounter Details Date Type Department Care Team (Late Contact Info) Description 06/16/2023 Orders Only [facility] MED & PEDS [address] [place], [place] [phone] Lizbeth Navarro LPN Social History Tobacco Use [...] 1:30 PM EST Office Visit [facility] [address] [place] [address] Rj, Betina, OD [address] [facility] [place], [place] [phone] documented as of this encounter Visit Diagnoses Not on filedocumented in this encounter Additional Health Concerns Assessment Noted Time PHQ-9 Depression Total Score: 0 04/06/20 23 10:11 AM EDT documented as of this encounter Care Teams Test Development Engineer Relationship Specialty Start Date End Date Renetta Gómez MD [address] [place] [address] PCP - General Family Medicine 12/29/18 documented as of this encounter
--- OUTSIDE RECORDS SUMMARY | 2025-05-09 12:57 | XMS_ITS | Encounter Summary ---
Author Organization [employer] Address [address] [place] [address] 7t [place] [address] Care Team Providers Care Aquaculture Farm Manager Name Role Phone Renetta Gómez MD Primary Care Provide r Reason for Visit * Reason Comments Med Refill Encounter Details Date Type Department Care Team (Late Contact Info) Description 06/16/2023 Refill [facility] MEDICINE [address] [place] [address] Roxana Quinonez MD [address] [place] [address] Social History Tobacco Use Types Packs/Day Years [...] Description 10/12/2025 1:30 PM EST Office Visit [facility] OPTOMETRY [address] [place], [place] [phone] Betina De La Rosa, OD [address] [place] [address] documented as of this encounter Visit Diagnoses Not on filedocumented in this encounter Additional Health Concerns Assessment Noted Time PHQ-9 Depression Total Score: 0 04/06/20 23 10:11 AM EDT documented as of this encounter Care Teams Aquaculture Farm Manager Relationship Specialty Start Date End Date Renetta Gómez MD [address] [place] [address] PCP - General Family Medicine 12/29/18 documented as of this encounter
--- OUTSIDE RECORDS SUMMARY | 2025-05-09 12:57 | XMS_ITS | Clinical Summary ---
Author Organization [address] [facility] Address [address] [place] [address] Phone Care Team Providers Care Telephone Lines Repairer Name Role Phone Renetta Gómez MD Primary [...] pain 06/13/2024 T2DM (type 2 diabetes mellitus) ([facility] V24, [facility] S/[facility] V28) 06/13/2024 Encounters Date Type Department Care Team Description 04/18/2025 1:45 PM EDT Office Visit Orthopedic Surgery [facility] [address] [facility] [address] [place] [phone] Ed Cowart, DPM Dermatophytosis of nail (Primary Dx); Diabetic mononeuropathy simplex ([facility] V24, [facility] V28); Acquired hammer toe of right foot; Hammer toe of left foot; Type II diabetes mellitus with peripheral circulatory disorder ([facility] V24, [facility] V28) from Last 3 Months [...] Care Team (Late st Contact Info) Description 07/19/2025 2:00 PM EST Office Visit Orthopedic Surgery - [facility] [address] [place] [phone] Ed Cowart, DPM [address] [place] [phone] Health Maintenance Due Date Last Done Comments Breast Cancer Screening 1970 Diabetes: Annual GFR (Glomerular Filtration Rate) 1970 Diabetes: Annual Foot Exam 1980 Diabetes: Annual Retina Eye Exam 1980 Cervical Cancer Screening: Pap Smear 1991 Colorectal Cancer Screening: Colonoscopy 10/07/2023 HIV Screening 10/07/2023 Hepatitis C Screening 10/07/2023 Social Influencers of Health Screening 10/07/2023 COVID-19 Vaccine ( season) 2024 08/04/2022, 08/29/2021, 01/22/2021, Additional history exists Diabetes: Annual Urine Albumin-Creatinine Ratio (uACR) 07/11/2024 Depression Screening 09/13/2024 Hypertension/CHF/CAD Annual BMP Blood Test 10/16/2024 Influenza Vaccine (#1) 2025 , 08/23/2023, 08/04/2022, Additional history exists Diabetes: Blood Sugar Control Test (HGBA1C) 10/17/2025 04/16/2025, 10/05/2024 Cholesterol Screening (Lipid Panel) 07/12/2029 07/12/2024 DTaP,Tdap,and Td Vaccines (2 - Td or Tdap) 12/08/2033 12/09/2023 Zoster Vaccines Completed 09/10/2021, 07/10/2021 Hepatitis A Vaccines Completed 03/02/2023, 08/18/20 Hepatitis B Vaccines Completed 03/02/2023, 10/06/2022, 08/18/2022 Pneumococcal Vaccine: 50+ Years Completed 03/15/2024 HIB Vaccines Aged Out No [...] complete this topic Insurance MEDICAID - [place] * Guarantor: Nicole Howard Account Type Relation to Patient Date of Phone Billing Address Personal/Family Self 1970 [address], [address] [place] [address] Care Teams Telephone Lines Repairer Relationship Specialty Start Date End Date Renetta Gómez MD [address] [place] [phone] PCP - General 08/25/23
--- OUTSIDE RECORDS SUMMARY | 2025-05-09 12:57 | XMS_ITS | Encounter Summary ---
Author Organization [employer] Address [address] [facility] [address]t [place] [address] Care Team Providers Care Primary Care Coordinator Name Role Phone Renetta Gómez MD Primary Care Provide r Reason for Visit * Reason Onset Date Comments PT1 03/21/2024 Encounter Details Date Type Department Care Team ([facility] st Contact Info) Description 03/21/2024 Telephone [facility] MEDICINE [address] [place], [place] [phone] Renetta Gómez MD [address] [place] [address] PT1 Social History Tobacco Use Types Packs/Day [...] facility name: Dr.Allison Bennett Facility Address: [address] [place], [place] Escort needed: Y/N: Yes Do you have a wheelchair: no If yes- Manual or electric: no Visits: 4 Patient calling requesting PT1 Home Address verified: Y/N: Yes Provider name or facility name: Dr.Corina Leon Facility Address: [address], [place] Escort needed: Y/N: Yes Do you have a wheelchair: Y/N: No If yes- Manual or electric: no Visits: 4 Patient calling requesting PT1 Home Address verified: Y/N: Yes Provider name or facility name: Dr. Ele Esparza Facility Address: [address] [place], [place] Escort needed: Y/N: Yes Do you have a wheelchair: Y/N: No If yes- Manual or electric: no Visits: 4 Patient calling requesting PT1 Home Address verified: Y/N: No Provider name or facility name: Dr. Margie Hugo Facility Address: [address] [place], [place] Escort needed: Y/N: Yes Do you have a wheelchair: Y/N: No If yes- Manual or electric: no Visits: 4 * Telephone Encounter - Emily Rodriguez - 03/21/2024 12:28 PM EDT Patient calling requesting PT1 Home Address verified: Y/N: Yes Provider name or facility name: [facility] Facility Address: [address] [facility], Escort needed: Y/N: Yes Do you have a wheelchair: Y/N: No If yes- Manual or electric: NO Visits: ALL FUTURE APPTS documented in this encounter Plan of Treatment Upcoming Encounters Date Type Department Care Team (Late st Contact Info) Description 10/12/2025 1:30 PM EST Office Visit [facility] OPTOMETRY [address] [place] [address] Rj, Betina, OD [address] [place] [address] documented as of this encounter Visit Diagnoses Not on filedocumented in this encounter Additional Health Concerns Assessment Noted Time PHQ-9 Depression Total Score: 0 04/06/20 23 10:11 AM EDT documented as of this encounter Care Teams Primary Care Coordinator Relationship Specialty Start Date End Date Renetta Gómez MD [address] [place] [address] PCP - General Family Medicine 12/29/18 documented as of this encounter
--- OUTSIDE RECORDS SUMMARY | 2025-05-09 12:57 | XMS_ITS | Encounter Summary ---
Author Organization [employer] [facility] Address [address] [place] [address] [address] [place] [address] Care Team Providers Care Skiagrapher Name Role Phone Renetta Gómez MD Primary Care Provide r Reason for Visit * Reason Comments Med Refill Encounter Details Date Type Department Care Team (Late Contact Info) Description 03/24/2023 Refill [facility] MED[facility] [address] [place] [address] Roxana Quinonez MD [address] [place] [address] Social History Tobacco Use Types Packs/Day Years [...] Description 10/12/2025 1:30 PM EST Office Visit [facility] OPT[facility]RY [address] [place] [address] Betina De La Rosa, OD [address] [place] [address] documented as of this encounter Visit Diagnoses Not on filedocumented in this encounter Care Teams Skiagrapher Relationship Specialty Start Date End Date Renetta Gómez MD [address] [place] [address] PCP - General Family Medicine 12/29/18 documented as of this encounter
--- OUTSIDE RECORDS SUMMARY | 2025-05-09 12:57 | XMS_ITS | Clinical Summary ---
Author Organization [email or web address] Address [address] [facility] [address] [place] [address] Care Team Providers Care Performance Consultant Name Role Phone Renetta Gómez MD Primary Care Provide r Allergies Active Allergy Reactions Criticality Noted Date Comments Acetaminophen 12/29/2018 Other reaction(s): Hives / Skin Rash Codeine 12/29/2018 Other reaction(s): Hives / Skin Rash Shellfish Allergy Angioedema High 12/09/2023 Can eat clams and fish Medications FREESTYLE LITE test stripIndications :Type 2 diabetes mellitus without complication, unspecified whether fdc insulin use ([facility]) USE TO TEST FINGER STICK BLOOD SUGAR two (2) times a day 100 strip 1 023 Active escitalopram (Lexapro) 20 MG tablet Take 20 mg by mouth in the morning. 023 Active traZODone (Desyrel) 150 MG tablet Take 150 mg by mouth at bedtime. 023 Active Continuous Blood Gluc Torsion Spring Coiling Machine Setter (FreeStyle Oren 2 Karval) deviceIndication s:Type 2 diabetes mellitus with hyperglycemia, with long-term current use of insulin ([facility]) Scan sensor every 8 hours 1 each 023 Active Continuous Blood Gluc Sensor (FreeStyle Oren 2 Sensor) miscIndications: Type 2 diabetes mellitus with hyperglycemia, with long-term current use of insulin ([facility]) Apply 1 sensor every 14 days 2 each 023 Active Trulicity 4.5 MG/0.5ML solution pen-injectorIndi cations:Type 2 diabetes mellitus with hyperglycemia ([facility]) INJECT 4.5 mg SUBCUTANEOUSLY EVERY WEEK 2 mL 3 024 Active EPINEPHrine (Epipen) 0.3 MG/0.3ML injection syringeIndicatio ns:Seafood allergy Inject 0.3 mL (0.3 mg) as directed 1 (one) time if needed for anaphylaxis. Inject into upper leg. Call 911 after use. 2 each Active naproxen (Naprosyn) 500 MG tablet TAKE [...] BY MOUTH ONCE DAILY AT BEDTIME Active fluticasone (Flonase) 50 MCG/ACT nasal spray Administer 2 sprays into each nostril Once per day. Shake gently. Before first use, prime pump. After use, clean tip and replace cap. 16 g 2 Active traZODone (Desyrel) 100 MG tabletIndication s:Primary insomnia Take 2 tablets (200 mg) by mouth at bedtime. 60 tablet 1 Active Baqsimi Two Pack 3 MG/DOSE nasal [...] FOR VOMITING Active clotrimazole (Lotrimin) 1 % creamIndications :Onychomycosis APPLY TO THE AFFECTED AREA TOPICALLY ONCE DAILY Active insulin degludec (Tresiba FlexTouch) 200 UNIT/ML injectionIndicat ions:Type 2 diabetes mellitus with hyperglycemia (CMS/HCC) INJECT 74 UNITS SUBCUTANEOUSLY ONCE DAILY 18 mL 3 024 Active pioglitazone (Actos) 15 MG tabletIndication s:Type 2 diabetes mellitus with diabetic polyneuropathy ([facility]) Take 1 tablet (15 mg) by mouth Once per day. 90 tablet 3 024 Active hydrOXYzine HCl (Atarax) 25 MG tabletIndication s:Pruritus Take 1 tablet (25 mg) by mouth 2 times daily. 60 tablet 2 Active omeprazole (PriLOSEC) [address] capsuleIndicatio ns:Gastroesophag eal reflux disease, unspecified whether esophagitis present Take 1 capsule (40 mg) by mouth before breakfast. Do not crush or chew. 90 capsule 1 025 Active levothyroxine (Synthroid, Levoxyl) 25 MCG tabletIndication s:Hypothyroidism , unspecified type Take 1 tablet (25 mcg) by mouth before breakfast. 90 tablet 3 Active albuterol 108 (90 Base) MCG/ACT inhalerIndicatio ns:Mild intermittent asthma without complication Inhale 2 puffs every 6 (six) hours if needed for wheezing. 18 g 11 025 2025 Active atorvastatin (Lipitor) 20 MG tabletIndication s:Type 2 diabetes mellitus with hyperglycemia, with long-term current use of insulin ([facility]) Take 1 tablet (20 mg) by mouth Once per day. 90 tablet 3 025 Active hydrOXYzine pamoate (Vistaril) 50 MG capsule Take 1 capsule by mouth 2 times daily. Active ketoconazole (NIZOral) 2 % cream APPLY TO THE AFFECTED AREA TOPICALLY ONCE DAILY Active busPIRone (Buspar) 15 MG tablet Take 1 tablet by mouth 2 times daily. Active Insulin Lispro 100 UNIT/ML solution USE IN INSULIN pump UP TO 130 UNITS ONCE DAILY DIRECTED Active levothyroxine (Synthroid, Levoxyl) 50 MCG tablet Take 1 tablet by mouth Once per day. Active Ozempic, 2 MG/DOSE, 8 MG/3ML solution pen-injector INJECT 2MG SUBCUTANEOUSLY EACH WEEK Active busPIRone (Buspar) 7.5 MG tablet TAKE 1 TABLET BY MOUTH 3 (THREE) TIMES A DAY. TAKE 1/2 HOUR BEFORE MEALS 023 2024 Discontinued(T herapy completed) clonazePAM (KlonoPIN) 0.5 MG tablet TAKE 1 TABLET BY MOUTH two (2) times a day NEEDED 023 2024 Discontinued levothyroxine (Synthroid, Levoxyl) 25 MCG tabletIndication s:Hypothyroidism , unspecified type TAKE 1 TABLET BY MOUTH ONCE DAILY BEFORE BREAKFAST 90 tablet 3 024 2024 Discontinued(R eorder (will not trigger notification to Pharmacy)) albuterol 108 (90 Base) MCG/ACT inhaler Inhale 2 puffs every 6 (six) hours if needed for wheezing. 18 g 11 024 2024 Discontinued(R eorder (will not trigger notification to Pharmacy)) Ozempic, 1 MG/DOSE, 4 MG/3ML solution pen-injector INJECT 1mg SUBCUTANEOUSLY EACH WEEK 024 2024 Discontinued(T herapy completed) atorvastatin (Lipitor) 20 MG tablet Take 1 tablet (20 mg) by mouth Once per day. 90 tablet 3 2024 Discontinued(R eorder (will not trigger notification to Pharmacy)) gabapentin (Neurontin) 300 MG capsuleIndicatio ns:Type 2 diabetes mellitus with hyperglycemia (CMS/HCC) Take 1 capsule by mouth once daily 30 capsule 11 2024 Discontinued insulin lispro (HumaLOG) 100 UNIT/ML injectionIndicat ions:Type 2 diabetes mellitus with hyperglycemia (CMS/HCC),nursing home (current) use of insulin (CMS/HCC) Inject 24 Units under the skin with breakfast, with lunch, and with evening meal. 4 mL 2 2024 Discontinued(T herapy completed) lisinopril 10 MG tablet TAKE 1 TABLET BY MOUTH ONCE DAILY 90 tablet 3 024 2024 Discontinued hydrOXYzine HCl (Atarax) 25 MG tabletIndication s:Pruritus TAKE 1 TABLET BY MOUTH two (2) times a day NEEDED 60 tablet 2 025 2024 Discontinued(R eorder (will not trigger notification to Pharmacy)) omeprazole (PriLOSEC) [address] Gauthier ns:Gastroesophag eal reflux disease, unspecified whether esophagitis present TAKE 1 CAPSULE BY MOUTH ONCE DAILY BEFORE BREAKFAST. not crush or chew 90 capsule 025 2024 Discontinued(R eorder (will not trigger notification to Pharmacy)) Active Problems Problem Noted Date Diagnosed Date Chronic right shoulder pain 04/16/2025 Assessment & Plan (04/16/2025 4:50 PM EDT): C/w PT and follow with orthopedics Mild intermittent asthma without complication Assessment & Plan (04/16/2025 4:50 PM EDT): Stable c/w same interventions Right flank pain 10/05/2024 UTI symptoms 10/05/2024 [...] use of insulin 06/30/2024 Assessment & Plan (04/16/2025 4:48 PM EDT): Diabetes is: controlled - Lab Results Component Value Date HGBA1C 6.0 (A) 04/16/2025 HGBA1C 6.7 (A) 10/05/2024 HGBA1C 9.3 (A) 03/15/2024 - Lab Results Component Value Date MICROALBUR 33.0 07/12/2024 CREATININE 0.89 10/17/2024 -Changes: none - Diabetic eye exam:up to date - Diabetic foot exam:pending - Continue lifestyle modifications - Continue current medications -follows with endocrinology Assessment & Plan (10/05/2024 4:05 PM EST): [...] up: with endocrinology as scheduled Fibromyalgia 06/30/2024 meterman current use of insulin 06/30/2024 Liver cirrhosis 06/30/2024 Assessment & Plan (04/16/2025 4:49 PM EDT): Continue to follow with GI Hyperlipidemia 06/30/2024 Elevated liver enzymes 06/30/2024 Dupuytren's disease of palm of left hand 024 Dupuytren's contracture of right hand 06/30/2024 Cubital tunnel syndrome on right 06/30/2024 Constipation 06/30/2024 Chronic kidney disease, stage 3 06/30/2024 Arthritis of left glenohumeral joint 06/30/2024 Acute carpal tunnel syndrome of right wrist 06/13 Wound infection 03/15/2024 GERD (gastroesophageal reflux disease) Assessment & Plan (04/16/2025 4:49 PM EDT): I advise patient to avoid NSAIDs, spicy and acid food, I advise to eat at the same time every day, I advise to elevate the head of the bed and take medications as prescribe Assessment & Plan (03/17/2024 2:47 PM EDT): [...] Encounters Date Type Department Care Team Description 05/09/2025 Orders Only GENERIC EXTERNAL DATA DEPARTMENT Provider, Generic External Data 04/16/2025 11:15 AM EDT Office Visit [facility] [address] [place] [address] Renetta Gómez MD Type 2 diabetes mellitus with hyperglycemia, with long-term current use of insulin (CMS/HCC) (Primary Dx); Cirrhosis of liver without ascites, unspecified hepatic cirrhosis type (CMS/HCC); Dietary counseling; Exercise counseling; Chronic right shoulder pain; Pruritus; Gastroesophageal reflux disease, unspecified whether esophagitis present; Hypothyroidism, unspecified type; Mild intermittent asthma without complication 04/16/2025 Travel 04/10/2025 2:00 PM EDT Office Visit [facility] [address] [place], [place] [phone] Rj, Betina, OD 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 2 diabetes mellitus (CMS/HCC) (Primary Dx); Age-related nuclear cataract of both eyes; Dry eyes; Presbyopia 04/10/2025 Travel 04/10/2025 Telephone [facility] [address] [place] [phone] Renetta Gómez MD No Show 04/09/[address] [phone] Renetta Gómez MD Chart Prep 04/03/2025 Patient Outreach [facility] [address] [place], [place] [phone] Renetta Gómez MD Pre-visit Planning (SDOH unable to reach LVM ) 04/02/2025 Telephone [facility] [address] [place], [place] [phone] Renetta Gómez MD PT1 (PT-1 Request [id number] Pending - [facility] ( Approved )/PT-1 Request [id number] Pending - [facility]) 03/29/[address] [phone] Renetta Gómez MD PT-1 03/15/2025 Orders Only [facility] External Provider, [facility] 02/09/2025 Orders Only GENERIC EXTERNAL DATA DEPARTMENT Provider, Generic External Data 02/07/2025 Orders Only GENERIC EXTERNAL DATA DEPARTMENT Provider, Generic External Data from Last 3 Months Immunizations Immunization Administration Dates Next Due Hep A, Adult [...] Date Recorded Patient Health Questionnaire-9 Score 0 04/16/2025 Patient Health Questionnaire-9 Score 0 04/16/2025 Last PHQ-9: Questionnaire Data Not on file 0 04/16/2025 Housing Stability Answer Date Recorded What is [...] the past 12 months, has t he [employer], gas, oil or water company threatened to shut off services in your home? No 06/29/2023 Depression Answer Date Recorded Patient Health Questionnaire-2 Score 0 04/16/2025 Internet Access Answer Date Recorded Internet Access [...] Sign Reading Time Taken Comments Blood Pressure 115/70 04/16/2025 11:40 AM EDT Pulse 82 04/16/2025 11:40 AM EDT Temperature 36 C (96.8 F) 04/16/2025 11:40 AM EDT Respiratory Rate 20 04/16/2025 11:40 AM EDT Oxygen Saturation 95% 10/05/2024 1:25 PM EST Inhaled Oxygen Concentration - - Weight 68 kg (150 lb) 04/16/2025 11:40 AM EDT Height 162.6 cm (5' 4 ) 04/16/2025 11:40 AM EDT Body Mass Index 25.75 04/16/2025 11:40 AM EDT Plan of Treatment Upcoming Encounters Date Type Department Care Team (Late st Contact Info) Description 10/12/2025 1:30 PM EST Office Visit [facility] [address] [place], [place] [phone] Rj, Betina, OD [address] [place] [address] Health Maintenance Due Date Last Done Comments CT Colonography 1970 FIT DNA/Cologuard 1970 FIT 1970 FOBT 1970 Sigmoidoscopy 1970 Diabetes: Foot Exam 1980 COVID-19 Vaccine ( season) 2024 08/04/2022, 08/29/2021, 01/22/2021, Additional history exists Cervical Cancer Screening 05/08/2025 HPV/Cotest 05/08/2025 05/08/2020, 02/10/2019 Pap Smear 05/08/2025 05/08/2020 Mammogram 05/12/2025 05/12/2024, 04/14, 12/30/2020, Additional history exists Influenza Vaccine (#1) 2025 , 08/23/2023, 08/04/2022, Additional history exists Diabetes: Urine Protein Screening 07/12/2025 07/12/2024, 07/02/2023, 12/06/2020, Additional history exists Lipid Panel 07/12/2025 07/12/2024, 04/13, 08/04/2022, Additional history exists SDOH Screening 09/25/2025 09/25/2024 Diabetes: Hemoglobin A1C 10/17/2025 025, 10/05/2024, 03/15/2024, Additional history exists Eye Exam 04/10/2026 04/10/2025, 03/14, 04/10/2025, Additional history exists Alcohol/Substance Use Screening 04/16/2026 04/16/2025 Depression Screening 04/16/2026 04/16/2025, 04/16/20 25 Disability Screening 04/16/2026 04/16/2025 Tobacco Screening 04/26/2026 04/26/2025 Colonoscopy 09/15/2027 09/15/2022 Colorectal Cancer Screening 09/15/2027 [...] 07/02/2023 Pneumococcal Vaccine: 50+ Years Completed 03/15/2024 HIB [...] Associated Diagnosis Comments GLUCOSE, WHOLE BLOOD Routine 05/09/2025 12:48 PM EDT POCT GLYCATED HEMOGLOBIN, TOTAL Routine 04/16/2025 11:42 AM EDT Type 2 diabetes mellitus with hyperglycemia, with long-term current use of insulin (CMS/HCC) POCT GLUCOSE Routine 04/16/2025 11:41 AM EDT Type 2 diabetes mellitus with hyperglycemia, with long-term current use of insulin (CMS/HCC) OCT, RETINA - OU - BOTH EYES Routine 04/10/2025 2:00 PM EDT 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 Pathologist [facility] [place] Glucose, Whole Blood 133(H) 60 - 115 mg/dL [facility] Comment:METER #: [id number] 0Testing performed in the Endocrinology Department [address] , [address], [facility]. 05/09/2025 12:4 8 PM EDT 05/09/2025 12:51 PM EDT us Generic External Data Provider LAB BLOOD ORDERAB LES Final Result [facility] [address] [place] [phone] * (ABNORMAL) POCT HGB A1C (04/16/2025 11:42 AM EDT) [facility] Hemoglobin A1C 6.0(A) 4.0 - 5.7 % QC Media Lot # [id number] Lot# Expiration Date 3 Blood 04/16/2025 11:4 2 AM EDT us Renetta Pedro MD POINT OF CARE TEST EN TER/EDIT ORDERABLES Final Result * POCT Glucose (04/16/2025 11:41 AM EDT) Pathologist [facility] [place] Glucose Blood, POC 123 60 - 200 mg/dL QC Media Lot # [id number] Lot# Expiration Date 2911,026 Blood Capillary blood specimen / Unknown 04/16/2025 11:41 AM EDT us Renetta Pedro MD POINT OF CARE TEST EN TER/EDIT ORDERABLES Final Result * OCT, Retina - OU - Both Eyes (04/10/2025 2:00 PM EDT) Narrative Betina De La Rosa, OD - 04/26/2025 2:13 PM EDT Images from the original result were not included. OCT MACULA INTERPRETATION Optical Coherence Tomography Interpretation Report Measurements: OD OS Macula Thickness 230 microns 358 microns Test findings: OD: Normal foveal contour, scattered cystoid macular edema (CME) throughout the macula, no retinal pigment epithelium (RPE) disruption, no subretinal fluid (SRF) OS: Tented fovea with large cystic change underneath, cystoid macular edema (CME) inferior to fovea, no retinal pigment epithelium (RPE) disruption, no subretinal fluid (SRF) Impression and Plan: Patient educated on findings. Will refer to a retinal specialist for further evaluation. Will follow here in 6 months as well. us Betina De La Rosa OD OPHTH TOMOGRAPHY Final Result * US ABDOMEN SULLIVAN W ELASTOGRAPHY (03/15/2025 8:00 AM EDT) Anatomical Region Laterality Modality Abdomen Ultrasound 03/15/2025 8:00 AM EDT Narrative 03/15/2025 8:46 AM EDT [place] [address] Ultrasound Report Signed Patient: Renata Gusman MR#: [id number] : 1970 Acct:[id number] Age/Sex: 55 / F ADM Date: 03/15/25 Loc: HO.US Attending Dr: Margie Hugo BLINDSTITCH MACHINE OPERATOR- Ordering Physician: Margie Hugo-CHANDAN Date of Service: 03/15/25 Procedure(s): US abdomen sullivan w elastography Accession Number(s): [id number] cc: Renetta Gómez MD; Margie Hugo [facility]- EXAMINATION: US ABDOMEN LIMITED WITH LIVER ELASTOGRAPHY HISTORY: K76.0 - Fatty (change of) liver, not elsewhere classified TECHNIQUE: Real-time grayscale ultrasound imaging of the right upper quadrant was performed and images were reviewed. COMPARISON: Comparison is made with the prior examination dated 2024. FINDINGS: Liver: The right lobe of the liver measures 12.6 cm in size. The left lobe of the liver measures 11.6 cm in size. The liver demonstrates coarsened, increased echotexture, consistent with steatosis. No focal mass or intrahepatic biliary ductal dilatation is identified. There is normal hepatopedal flow in the portal vein. Ultrasound elastography of the liver was performed with 10 separate measurements of the liver parenchyma with the patient in the supine position. Measurements were obtained approximately 2 cm below My's capsule and perpendicular to the capsule. The median shear wave velocity is 1.27 m/s (previously 1.36 m/s). The interquartile range/median (IQR/median) is 0.37. Gallbladder and biliary tree: There are multiple shadowing calculi in the gallbladder. There is no wall thickening or pericholecystic fluid. There is no sonographic Hillman sign. The common bile duct is normal in caliber measuring 2 mm. Right Kidney: The right kidney measures 11.0 cm in length. There is mild fullness of the right renal collecting system. No masses or calculi are identified. Pancreas: The pancreatic head, neck, and body are unremarkable. The pancreatic tail is obscured by bowel gas. Abdominal aorta and inferior vena cava: The visualized portions of the abdominal aorta and inferior vena cava are normal in caliber. There is no free fluid in the right upper quadrant. US/US abdomen sullivan w elastography IMPRESSION: Hepatic steatosis. Cholelithiasis. The median shear wave velocity in the liver is 1.27 m/s, corresponding to a median liver stiffness of 4.94 kPa. The IQR/median value is 0.37. This is indicative of a poor quality data set, and the estimated liver stiffness may be unreliable. Findings are indicative of a normal elastography value with a low likelihood of severe fibrosis or cirrhosis. REFERENCE: Society of Radiologists in Ultrasound Liver Stiffness Thresholds (2020): LIVER STIFFNESS THRESHOLDS: *Shear wave velocity less than 1.3 m/s (Liver Stiffness equal or less than 5 kPa): High probability of being normal. *Shear wave velocity less than 1.7 m/s (Liver Stiffness less than 9 kPa): In the absence of other known clinical signs, rules out compensated advanced chronic liver disease. *Shear wave velocity between 1.7-2.1 m/s (Liver Stiffness 9-13 kPa): Suggestive of compensated advanced chronic liver disease but need further test for confirmation. *Shear wave velocity between 2.1-2.4 m/s (Liver Stiffness 13-17 kPa): Rules in compensated advanced chronic liver disease. *Shear wave velocity greater than 2.4 m/s (Liver Stiffness over 17 kPa): Suggestive of clinically significant portal hypertension. QUALITY OF DATA SET: *IQR/Median value equal or less than 0.15 implies a quality data set. *IQR/Median value over 0.15 implies a poor quality data set. SIGNIFICANT CHANGE FROM PRIOR EXAM: Significant change if liver stiffness measurement is 10% or greater from prior exam. OTHER CONSIDERATIONS: The stage of liver fibrosis may be overestimated in the setting of acute hepatitis, liver inflammation, elevated liver function tests, hepatic vascular congestion, obstructive cholestasis, non-fasting state, and infiltrative diseases such as amyloidosis and lymphoma. In some patients with NAFLD, the liver stiffness thresholds for compensated advanced chronic liver disease may be lower. In causes other than viral hepatitis and NAFLD, liver stiffness thresholds are not well established. Electronically signed by: Justin Marin MD 03/15/2025 08:42 AM EDT Dictated By: Justin Marin MD Signed By: <Electronically signed by Justin Marin MD in OV> 03/15/25 0842 DD/ 0800 TD/TT: 03/15/25 0825 Substance Abuse Therapist: Procedure Note Donotuseinterpreter, Image - 03/15/2025 [place] [address] Ultrasound Report Signed Patient: Julia Gusman#: [id number] : 1970Acct:[id number] Age/Sex: 55 / FADM Date: 03/15/25 Loc: HO.US Attending Dr: Margie BOSWELL Ordering Physician: Margie Hugo Date of Service: 03/15/25 Procedure(s): US abdomen sullivan w elastography Accession Number(s): [id number] cc: Renetta Gómez MD; Margie Hugo- EXAMINATION: US ABDOMEN LIMITED WITH LIVER ELASTOGRAPHY HISTORY: K76.0 - Fatty (change of) liver, not elsewhere classified TECHNIQUE: Real-time grayscale ultrasound imaging of the right upper quadrant was performed and images were reviewed. COMPARISON: Comparison is made with the prior examination dated 2024. FINDINGS: Liver: The right lobe of the liver measures 12.6 cm in size. The left lobe of the liver measures 11.6 cm in size. The liver demonstrates coarsened, increased echotexture, consistent with steatosis. No focal mass or intrahepatic biliary ductal dilatation is identified. There is normal hepatopedal flow in the portal vein. Ultrasound elastography of the liver was performed with 10 separate measurements of the liver parenchyma with the patient in the supine position. Measurements were obtained approximately 2 cm below My's capsule and perpendicular to the capsule. The median shear wave velocity is 1.27 m/s (previously 1.36 m/s). The interquartile range/median (IQR/median) is 0.37. Gallbladder and biliary tree: There are multiple shadowing calculi in the gallbladder. There is no wall thickening or pericholecystic fluid. There is no sonographic Hillman sign. The common bile duct is normal in caliber measuring 2 mm. Right Kidney: The right kidney measures 11.0 cm in length. There is mild fullness of the right renal collecting system. No masses or calculi are identified. Pancreas: The pancreatic head, neck, and body are unremarkable. The pancreatic tail is obscured by bowel gas. Abdominal aorta and inferior vena cava: The visualized portions of the abdominal aorta and inferior vena cava are normal in caliber. There is no free fluid in the right upper quadrant. US/US abdomen sullivan w elastography IMPRESSION: Hepatic steatosis. Cholelithiasis. The median shear wave velocity in the liver is 1.27 m/s, corresponding to a median liver stiffness of 4.94 kPa. The IQR/median value is 0.37. This is indicative of a poor quality data set, and the estimated liver stiffness may be unreliable. Findings are indicative of a normal elastography value with a low likelihood of severe fibrosis or cirrhosis. REFERENCE: Society of Radiologists in Ultrasound Liver Stiffness Thresholds (2020): LIVER STIFFNESS THRESHOLDS: *Shear wave velocity less than 1.3 m/s (Liver Stiffness equal or less than 5 kPa): High probability of being normal. *Shear wave velocity less than 1.7 m/s (Liver Stiffness less than 9 kPa): In the absence of other known clinical signs, rules out compensated advanced chronic liver disease. *Shear wave velocity between 1.7-2.1 m/s (Liver Stiffness 9-13 kPa): Suggestive of compensated advanced chronic liver disease but need further test for confirmation. *Shear wave velocity between 2.1-2.4 m/s (Liver Stiffness 13-17 kPa): Rules in compensated advanced chronic liver disease. *Shear wave velocity greater than 2.4 m/s (Liver Stiffness over 17 kPa): Suggestive of clinically significant portal hypertension. QUALITY OF DATA SET: *IQR/Median value equal or less than 0.15 implies a quality data set. *IQR/Median value over 0.15 implies a poor quality data set. SIGNIFICANT CHANGE FROM PRIOR EXAM: Significant change if liver stiffness measurement is 10% or greater from prior exam. OTHER CONSIDERATIONS: The stage of liver fibrosis may be overestimated in the setting of acute hepatitis, liver inflammation, elevated liver function tests, hepatic vascular congestion, obstructive cholestasis, non-fasting state, and infiltrative diseases such as amyloidosis and lymphoma. In some patients with NAFLD, the liver stiffness thresholds for compensated advanced chronic liver disease may be lower. In causes other than viral hepatitis and NAFLD, liver stiffness thresholds are not well established. Electronically signed by: Justin Marin MD 03/15/2025 08:42 AM EDT Dictated By: Justin Marin MD Signed By: <Electronically signed by Justin Marin MD in OV> 03/15/25 0842 DD/ 08 TD/TT: 03/15/25824 Substance Abuse Therapist: us [facility] External Provider IMG US PROCEDURES Edited Result - Final * (ABNORMAL) Liver Fibrosis (HCV), FibroTest-ActiTest Panel (02/09/2025 8:43 AM EDT) Liver Fibrosis Score 0.81 [facility] Liver Fibrosis Stage F4 [facility] Liver Fibrosis Interpretation SEE NOTE [facility] Comment:severe fibrosisFibro Test Score (f) Metavir Score f>=0 and f<=0.21 : F0 (no fibrosis)f>0.21 and f<=0.27 : F0-F1 (no fibrosis)f>0.27 and f<=0.31 : F1 (minimal fibrosis)f>0.31 and f<=0.48 : F1-F2 (minimal fibrosis)f>0.48 and f<=0.58 : F2 (moderate fibrosis)f>0.58 and f<=0.72 : F3 (advanced fibrosis)f>0.72 and f<=0.74 : F3-F4 (advanced fibrosis)f>0.74 and f<=1.00 : F4 (severe fibrosis) Nec Inflam Act Score 0.33 [facility] Nec Inflam Act Grade A1 [facility] Nec Inflam Act Interpretation SEE NOTE [facility] Comment:minimal activityActi Test Score (a) Metavir Score a>=0 and a<=0.17 : A0 (no activity)a>0.17 and a<=0.29 : A0-A1 (no activity)a>0.29 and a<=0.36 : A1 (minimal activity)a>0.36 and a<=0.52 : A1-A2 (minimal activity)a>0.52 and a<=0.60 : A2 (significant activity)a>0.60 and a<=0.62 : A2-A3 (significant activity)a>0.62 and a<=1.00 : A3 (severe activity) SBG-Rvuwg-4-Macroglo bulin 447(A) 106 - 279 mg/dL [facility] FIB-Haptoglobin 80 43 - 212 mg/dL [facility] FIB-Apolipoprotein A1 147 101 - 198 mg/dL [facility] FIB-Total Bilirubin 0.7 0.2 - 1.2 mg/dL [facility] FIB-GGT 183(A) 3 - 70 U/L [facility] FIB-ALT 35(A) 6 - 29 U/L [facility] Reference ID [id number] [facility] Footnote SEE NOTE [facility] Comment: The reliability of results is dependent on compliance withthe preanalytical and analytical conditions recommended by[employer]ict[employer]. The tests have to be deferred for: acutehemolysis, acute hepatitis, acute inflammation, extrahepatic cholestasis. The advice of a specialist should besought for interpretation in chronic hemolysis and Gilbert'ssyndrome. The test interpretation is not validated in livertransplant patients. Isolated extreme values of one of thecomponents should lead to caution in interpreting theresults. In case of discordance between a biopsy result gus test, it is recommended to seek the advice of aspecialist. The causes of these discordances could be due toa flaw of the test or to a flaw in the biopsy: i.e. a liverbiopsy has a 33% variability rate for one fibrosis stage.FibroTest is interpretable for chronic hepatitis B and C,alcoholic and non alcoholic steatosis. ActiTest isinterpretable for chronic hepatitis B and C.The performance characteristics have been determined by[facility]. Ithas not been cleared or approved by the U.S. Food and DrugAdministration. Performance characteristics refer to theanalytical performance of the test.[employer] the associated logo, [employer] and all associated [employer] marie are theregistered trademarks of [employer]. All third partymarks - (R) and (TM) - are the property of their respectiveowners. (C) [id number] [employer]. Allrights reserved.THIS TEST WAS PERFORMED AT:[employer] [id number] [place] [address]UJYYHTHALIA MCDANIEL MD,PHD,JAEL 02/09/2025 8:43 AM EDT 02/09/2025 8:43 AM EDT us Generic External Data Provider LAB BLOOD ORDERAB LES Final Result [facility] [address] [place] [phone] * (ABNORMAL) Hepatic Function Panel (02/09/2025 8:43 AM EDT) Bilirubin, Total 0.8 0.0 - 1.0 mg/dL [facility] Bilirubin, Direct 0.3 0.0 - 0.5 mg/dL [facility] Aspartate Amino Transferase 44(H) 5 - 31 U/L [facility] Alanine Aminotransferase 49(H) 0 - 31 U/L [facility] Total Protein 7.8 6.5 - 8.0 g/dL [facility] Albumin Level 4.3 3.5 - 5.0 g/dL [facility] Alkaline Phosphatase 126(H) 39 - 117 U/L [facility] 02/09/2025 8:43 AM EDT 02/09/2025 8:43 AM EDT us Generic External Data Provider LAB BLOOD ORDERAB LES Final Result [facility] [address] [place] [phone] * (ABNORMAL) Lipid Panel, Standard (07/12/2024 10:54 AM EDT) Triglycerides 170(H) <150 mg/dL [facility] Comment:Desirable Triglyceri de: less than 150 mg/dLBorderline High Triglyceride 150-199 mg/dLHigh Triglyceride: 200-499 mg/dLVery High Triglyceride: greater than or equal to 5OO mg/dL Cholesterol 179 <200 mg/dL [facility] Comment:Desirable Cholestero l: less than 200 mg/dLBorderline High Cholesterol: 200-239 mg/dLHigh Cholesterol: greater than 239 mg/dL LDL Cholesterol Calculated 109(H) <100 mg/dL [facility] Comment:Desirable LDL: less than 100 mg/dLNear Optimal/Above Optimal LDL: 110- 129 mg/dLBorderline High LDL: 130-159 mg/dLHigh LDL: 160-189 mg/dLVery High LDL: greater than or equal to 190 mg/dL HDL Cholesterol 36(L) >40 mg/dL [facility] Comment:Desirable HDL: great er than 40 mg/dL Note: This HDL assay may give artificially low results in patients with liver disease. 07/12/2024 10:5 4 AM EDT 07/12/2024 10:54 AM EDT us Generic External Data Provider LAB BLOOD ORDERAB LES Final Result Performing Organization Address [facility] de Phone Number [facility] [address] [place] [phone] * Albumin, Random Urine W/Creatinine (07/12/2024 10:52 AM EDT) Creatinine, Urine 269.94 mg/dL [facility] Microalbumin Urine 33.0 mg/L [facility] Microalbum Creatinine Ratio Ur 12.2 <30 ug/mg cr [facility] Comment:Albumin/Creatinine R atio Reference Ranges: Normal: < 30 ug/mg creatinine Microalbuminuria: 30 - 300 ug/mg creatinineClinical Albuminuria: > 300 ug/mg creatinine 07/12/2024 10:5 2 AM EDT 07/12/2024 11:37 AM EDT us Generic External Data Provider LAB URINE ORDERAB LES Final Result Performing Organization Address [facility] Co de Phone Number [facility] [address] [place] [phone] * BI Mammogram Screening Tomosynthesis Bilateral (05/12/2024 10:15 AM EDT) Anatomical Region Laterality Modality Breast Bilateral Mammography 05/12/2024 10:1 5 AM EDT Narrative 06/02/2024 10:40 PM EDT [facility] [address] [place] [address] Mammography Report Signed Patient: Renata Gusman MR#: [id number] : 1970 Acct:[id number] Age/Sex: 54 / F ADM Date: 05/12/24 Loc: [facility] Attending Dr: Renetta Pedro MD Ordering Physician: Renetta Gómez MD Results: 1Negative Date of Service: 08/30/24 Follow Up: 1 Year From Orig inal Mammogram Procedure(s): MM tomosynthesis screening BI Accession Number(s): [id number] cc: Renetta Gómez MD EXAMINATION: MM SCREENING [...] signed by Beth Milian DO in OV> 06/02/247 DD/ 1015 TD/TT: 05/12/24 1030 Substance Abuse Therapist: Procedure Note Donotuseinterpreter, Image - 06/02/2024 [facility] [address] [place] [address] Mammography Report Signed Patient: Julia Gusman#: [id number] : 1970Acct:[id number] Age/Sex: 54 / FADM Date: 05/12/24 Loc: [facility] Attending Dr: Renetta Pedro MD Ordering Physician: Renetta Gómez MDResults: 1Negative Date of Service: 05/12/24Follow Up: 1 Year From Orig inal Mammogram Procedure(s): MM tomosynthesis screening BI Accession Number(s): [id number] cc: Renetta Gómez MD EXAMINATION: MM SCREENING [...] 06/02/24 2237 DD/ 1015 TD/TT: 05/12/24 1030 Substance Abuse Therapist: us Renetta Pedro MD IMG BI PROCEDURES Nael aftab Result - Final * HIV Ab/Ag ([place] [facility]) (07/02/2023 8:37 AM EDT) HIV AB/AG Nonreactive Nonreactive [facility] Comment:HIV-1 p24 Ag and/or HIV-1/HIV-2 Ab not detected.A test result that is nonreactive does not exclude thepossibility of exposure to or infection with HIV-1 and/orHIV-2. Nonreactive results in this assay for individualswith prior exposure to HIV-1 and/or HIV-2 may be due toantigen and antibody levels that are below the limit ofdetection of this assay.The nGAP HIV Ag/Ab Combo assay result andsupplemental assay results should be interpreted inconjunction with the patient's clinical presentation,history and other laboratory results. If the results areinconsistent with clinical evidence, additional testing issuggested to confirm the result. 07/02/2023 8:37 AM EDT 07/02/2023 11:24 AM EDT Renetta Pedro MD LAB BLOOD ORDERABLES Final Result Performing Organization Address City/[facility]/ZIP Co de Phone Number [facility] [address] [place] [phone] * Hm Colonoscopy (09/15/2022) Colonoscopy Normal [...] HIGH RISK, CERVICAL Not Detected NOT DETECTED [facility] Comment: Not Detected High Risk HPV types (16,18,31,33,35,39,45,51,52, 56,58,59,66,68) were not detected. Other HPV types which cause anogenital lesions may be present. The significance of the other types of HPV in malignant processes has not been established. Methodology: Real Time PCR 05/08/2020 3:09 PM EDT Renetta Pedro MD HISTORICAL/NON ORDERA BLE LABS Final Result Performing Organization Address [facility] Co de Phone Number [facility] [address] [place] [address], * THINPREP TIS PAP (05/08/2020 3:09 PM EDT) Clinical Information: SEE COMMENT [facility] Comment:None given COMMENT [facility] Comment: EXPLANATORY NOTE: The Pap is a screening test for cervical cancer. It is not a diagnostic test and is subject to false negative and false positive results. It is most reliable when a satisfactory sample, regularly obtained, is submitted with relevant clinical findings and history, and when the Pap result is evaluated along with historic and current clinical information. COMMENT: SEE COMMENT [facility] Comment: This Pap test has been evaluated with computer assisted technology. Rehab Tech: SEE COMMENT [facility] Comment: LT, CT(ASCP) CT screening location: [address] [address] Infection [facility] Comment: Shift in vaginal zeina suggestive of bacterial vaginosis. Interpretation/Resu lt: SEE COMMENT [facility] Comment:Negative for intraep ithelial lesion or malignancy. LMP: [facility] Comment:NONE GIVEN Prev. BX: NONE GIVEN [facility] Prev. PAP: SEE COMMENT [facility] Comment:NONE GIVEN SOURCE: SEE COMMENT [facility] Comment:None given Statement Of Adequacy: SEE COMMENT [facility] Comment: Satisfactory for evaluation. Endocervical/transformation zone component present. Age and/or menstrual status not provided 05/08/2020 3:09 PM EDT us Renetta Pedro MD LAB PATHOLOGY ORDERAB LES Final Result Performing Organization Address [facility] Co de Phone Number [facility] [address] [place] [address], from Last 3 Months or Most Recently Relevant to Health Maintenance Insurance * Guarantor: Renata Gusman Account Type Relation to Patient Date of Phone Billing Address Personal/Family Self 1970 [address] [place] [address] [facility] C[facility] * Guarantor: Renata Gusman Account Type Relation to Patient Date of Phone Billing Address Personal/Family Self [address] [place] [address] * Guarantor: Renata Gusman Account Type Relation to Patient Date of Phone Billing Address Personal/Family Self [address] [place] [address] * Guarantor: Renata Gusman Account Type Relation to Patient Date of Phone Billing Address Personal/Family Self [address] [place] [address] Care Teams Performance Consultant Relationship Specialty Start Date End Date Renetta Gómez MD [address] [place] [phone] PCP - General Family Medicine 12/29/18
--- OUTSIDE RECORDS SUMMARY | 2025-05-09 12:57 | XMS_ITS | Encounter Summary ---
Author Organization [employer] Address [address] [facility] 7t [place] [address] Care Team Providers Care Tractor Mechanic Helper Name Role Phone Renetta Gómez MD Primary Care Provide r Reason for Visit * Reason Comments Med Refill Encounter Details Date Type Department Care Team (Late Contact Info) Description 12/02/2022 Refill [facility] MED [facility] PEDS [address] [place], [place] [phone] Fannie Ceron MD [address] [place] [address] Type 2 diabetes mellitus without complication, unspecified whether shelter insulin use (CMS/HCC) Social History Tobacco Use [...] 10/12/2025 1:30 PM EST Office Visit [facility] OPTOMETRY [address] [place], [place] [phone] Betina De La Rosa OD [address] [place] [address] documented as of this encounter Visit Diagnoses Diagnosis Type 2 diabetes mellitus without complication, unspecified whether predatory animal exterminator insulin use (CMS/HCC) documented in this encounter Care Teams Tractor Mechanic Helper Relationship Specialty Start Date End Date Renetta Gómez MD [address] [place] [address] PCP - General Family Medicine 12/29/18 documented as of this encounter
--- OUTSIDE RECORDS SUMMARY | 2025-05-09 12:57 | XMS_ITS | Encounter Summary ---
Author Organization [employer] Address [address] [place] [address] 7t [place] [address] Care Team Providers Care Stenotype Machine Operator Name Role Phone Renetta Gómez MD Primary Care Provide r Encounter Details Date Type Department Care Team (Late st Contact Info) Description 11/10/2022 Orders Only [facility] PEDS [address] [place] [address] Lizbeth Navarro LPN Social History Tobacco Use [...] Description 10/12/2025 1:30 PM EST Office Visit [facility] OPTOMETRY [address] [place] [address] Betina De La Rosa, OD [address] [place] [address] documented as of this encounter Visit Diagnoses Not on filedocumented in this encounter Care Teams Stenotype Machine Operator Relationship Specialty Start Date End Date Renetta Gómez MD [address] [place] [address] PCP - General Family Medicine 12/29/18 documented as of this encounter
--- OUTSIDE RECORDS SUMMARY | 2025-05-09 12:57 | XMS_ITS | Encounter Summary ---
Author Organization [employer] Address [address] [facility] 7t [place] [address] Care Team Providers Care Manager Report Name Role Phone Renetta Gómez MD Primary Care Provide r Reason for Visit * Reason Onset Date Comments PT1 05/24/2024 Encounter Details Date Type Department Care Team ([facility] st Contact Info) Description 05/24/2024 Telephone [facility] MEDICINE [address] [place], [place] [phone] Renetta Gómez MD [address] [place] [address] PT1 Social History Tobacco Use Types Packs/Day [...] name: Ed Cowart DPM Facility Address: [address] [place] [address] [place] [address] Escort needed: Y/N: Yes Do you have a wheelchair: Y/N: No If yes- Manual or electric: Visits: 4-5 visits a year documented in this encounter Plan of Treatment Upcoming Encounters Date Type Department Care Team (Late st Contact Info) Description 10/12/2025 1:30 PM EST Office Visit [facility] OPTOMETRY [address] [place] [address] Rj, Betina, OD [address] [place] [address] documented as of this encounter Visit Diagnoses Not on filedocumented in this encounter Additional Health Concerns Assessment Noted Time PHQ-9 Depression Total Score: 0 04/06/20 23 10:11 AM EDT documented as of this encounter Care Teams Manager Report Relationship Specialty Start Date End Date Renetta Gómez MD [address] [place], [place] [phone] PCP - General Family Medicine 12/29/18 documented as of this encounter
--- OUTSIDE RECORDS SUMMARY | 2025-05-09 12:57 | XMS_ITS | Encounter Summary ---
Author Organization [employer] Address [address] [facility] 7t [place] [address] Care Team Providers Care Turbo Generator Oiler Name Role Phone Renetta Gómez MD Primary Care Provide r Reason for Visit * Reason Comments Med Refill Encounter Details Date Type Department Care Team (Late st Contact Info) Description 09/25/2023 Refill [facility] [address] [place], [place] [phone] Renetta Gómez MD [address] [place], [place] [phone] Hypothyroidism, unspecified type Social History Tobacco Use [...] Description 10/12/2025 1:30 PM EST Office Visit [facility] OPTOMETRY [address] [place] [address] Betina De La Rosa, OD [address] [place], [place] [phone] documented as of this encounter Visit Diagnoses Diagnosis Hypothyroidism, unspecified type documented in this encounter Additional Health Concerns Assessment Noted Time PHQ-9 Depression Total Score: 0 04/06/20 23 10:11 AM EDT documented as of this encounter Care Teams Turbo Generator Oiler Relationship Specialty Start Date End Date Renetta Gómez MD [address] [place] [address] PCP - General Family Medicine 12/29/18 documented as of this encounter
== END 2025-05-09 13:26 | disposition home or self-care (01) ==
LOC: HO.ENCR 12:22
PROVIDERS: PCP Internal Medicine; Visit Provider Internal Medicine
DX: E11.22 Type 2 diabetes mellitus with diabetic chronic kidney disease (principal); N18.30 Chronic kidney disease, stage 3 unspecified; Z79.4 Long term (current) use of insulin

== ENCOUNTER → 2025-05-09 12:22 | Outpatient (BNVA) | payer MEDICAID, SELFPAY | PROVIDERS: PCP Internal Medicine; Visit Provider Internal Medicine | DX: E11.22 Type 2 diabetes mellitus with diabetic chronic kidney disease (principal); E11.42 Type 2 diabetes mellitus with diabetic polyneuropathy; E11.65 Type 2 diabetes mellitus with hyperglycemia; N18.30 Chronic kidney disease, stage 3 unspecified; E03.9 Hypothyroidism, unspecified; E04.9 Nontoxic goiter, unspecified; K74.60 Unspecified cirrhosis of liver; J45.909 Unspecified asthma, uncomplicated; Z79.4 Long term (current) use of insulin | CPT/HCPCS: 82947; 83036; 99212 ==

== ENCOUNTER 2025-05-18 13:36 | Outpatient (AMB) | payer MEDICAID, SELFPAY ==
[2025-05-18 13:51] VITALS: BMI 25.2
--- NOTE | 2025-05-18 13:51 | A.OFFVIS_ITS ---
Vital Signs 05/18/25 13:51 Height 5 ft 4 in Weight 147 lb BMI 25.2 Intake Visit Reasons: Right Cubital & Carpal Tunnel Release 12/18/24 Intake Note: Renata is a 55 year old right hand dominant female who presents today for follow up status post Right Cubital and Carpal Tunnel Release, DOS: 12/18/[address] Bennett. At her last visit on 02/09/25, she was referred to OT due to limited ROM. States she started to O.T but missed her last 3 appt due to feeling like O.T was useless. States she continues to have pain in her incision area but her her symptoms have resolved. Hx of DM. Anesthesiologist Physician Name: Viktoria JUARES LM Allergies seafood Allergy (Severe, Verified 05/18/25 13:53) throat closes codeine (Tylenol-Codeine) Allergy (Intermediate, Verified 05/18/25 13:53) rash HPI HPI Right Cubital & Carpal Tunnel Release 12/18/24: Details: Renata is a 55 year old right hand dominant female who presents today for follow up status post Right Cubital and Carpal Tunnel Release, DOS: 12/18/[address] Bennett. At her last visit on 02/09/25, she was referred to OT due to limited ROM. States she started to O.T but missed her last 3 appt due to feeling like O.T was useless. States she continues to have pain in her incision area but her her symptoms have resolved. Hx of DM. [facility] Medical History Carpal tunnel syndrome, right Liver cirrhosis Hyperlipidemia Hepatitis C Elevated liver enzymes Hypothyroidism Depression Fibromyalgia Asthma Type 2 diabetes mellitus with diabetic polyneuropathy Type 2 diabetes mellitus with hyperglycemia, with long-term current use of insulin alf current use of insulin Chronic kidney disease, stage 3 Surgical History Hx of elbow surgery Hx of colonoscopy Hx of hand surgery Hx of biopsy H/O oral surgery Family History Mother Diabetes Asthma Kidney stones HTN (hypertension) Brother Diabetes Father Bloodstream infection Social History Household Members: Spouse Are you a primary health and social care teacher to a significant other at home: No Do you presently have visiting nurse or other home services: No Alcohol intake: current Alcohol intake frequency: does not drink Patient Tobacco Use Status: Never used Tobacco Current occupational status: disabled Review of Systems Const All systems reviewed & are unremarkable except as noted in HPI and below Physical Exam Vital Signs: BMI result Body Mass Index 25.2 Assessment & Plan Assessment & Plan (1) Carpal tunnel syndrome, right: Code(s): G56.01 - Carpal tunnel syndrome, right upper limb Category: Medical (2) Cubital tunnel syndrome on right: Code(s): G56.21 - Lesion of ulnar nerve, right upper limb Category: Medical (3) Dupuytren's contracture of right hand: Code(s): M72.0 - Palmar fascial fibromatosis [Dupuytren] Category: Medical (4) Prolonged capillary refill time: Code(s): R09.89 - Other specified symptoms and signs involving the circulatory and respiratory systems Category: Medical Plan 1. Delayed capillary refill of right hand 2. Status post right cubital tunnel release 3. Status post right carpal tunnel release DOS 12/18/2024 Ultrasound negative for any acute process or blood clot Due to limited range of motion, patient is referred to OT for range of motion and strengthening of the left hand, wrist, elbow Patient is amenable to this plan With regards to cubital and carpal tunnel releases, incisions appear to be healing quite well No other concerns at this time Follow-up as needed Coding Level of Care Code Est Pt Level 3 (60133) Diagnoses Carpal tunnel syndrome, right G56.01 Cubital tunnel syndrome on right G56.21 Dupuytren's contracture of right hand M72.0 Prolonged capillary refill time R09.89
--- OUTSIDE RECORDS SUMMARY | 2025-05-18 13:57 | XMS_ITS | Encounter Summary ---
Author Organization [employer] Address [address] [facility] 7t [place] [address] Care Team Providers Care Cuff Setter Overlock Name Role Phone Renetta Gómez MD Primary Care Provide r Encounter Details Date Type Department Care Team (Late Contact Info) Description 06/16/2023 Orders Only [facility] CH[facility] MED & PEDS [address] [place], [place] [phone] Lizbeth Navarro LPN Social History Tobacco Use [...] Description 10/12/2025 1:30 PM EST Office Visit [facility] OPTOMETRY [address] [place] [address] Rj, Betina, OD [address] [facility] [place], [place] [phone] documented as of this encounter Visit Diagnoses Not on filedocumented in this encounter Additional Health Concerns Assessment Noted Time PHQ-9 Depression Total Score: 0 04/06/20 23 10:11 AM EDT documented as of this encounter Care Teams Cuff Setter Overlock Relationship Specialty Start Date End Date Renetta Gómez MD [address] [place] [address] PCP - General Family Medicine 12/29/18 documented as of this encounter
--- OUTSIDE RECORDS SUMMARY | 2025-05-18 13:57 | XMS_ITS | Encounter Summary ---
Author Organization [employer] Address [address] [facility] 7t [place] [address] Care Team Providers Care Fitness Trainer Name Role Phone Renetta Gómez MD Primary Care Provide r Reason for Visit * Reason Comments Med Refill Encounter Details Date Type Department Care Team (Late st Contact Info) Description 09/25/2023 Refill [facility] [address] [place], [place] [phone] Renetta Gómez MD [address] [place], [place] [phone] Hypothyroidism, unspecified type Social History Tobacco Use [...] Description 10/12/2025 1:30 PM EST Office Visit [facility] OPTOMETRY [address] [place] [address] Betina De La Rosa, OD [address] [place], [place] [phone] documented as of this encounter Visit Diagnoses Diagnosis Hypothyroidism, unspecified type documented in this encounter Additional Health Concerns Assessment Noted Time PHQ-9 Depression Total Score: 0 04/06/20 23 10:11 AM EDT documented as of this encounter Care Teams Fitness Trainer Relationship Specialty Start Date End Date Renetta Gómez MD [address] [place] [address] PCP - General Family Medicine 12/29/18 documented as of this encounter
--- OUTSIDE RECORDS SUMMARY | 2025-05-18 13:58 | XMS_ITS | Clinical Summary ---
Author Organization 175 [facility] Address 175 [place] [address] Phone Care Team Providers Care Senior Accounting Clerk Name Role Phone Renetta Gómez MD [...] pain 06/13/2024 T2DM (type 2 diabetes mellitus) ([facility] V24, [facility] V28) 06/13/2024 Encounters Date Type Department Care Team Description 04/18/2025 1:45 PM EDT Office Visit Orthopedic Surgery [facility] [address] [facility] [address] [place] [phone] Ed Cowart, DPM Dermatophytosis of nail (Primary Dx); Diabetic mononeuropathy simplex ([facility] V24, [facility] V28); Acquired hammer toe of right foot; Hammer toe of left foot; Type II diabetes mellitus with peripheral circulatory disorder ([facility] V24, [facility] V28) from Last 3 Months Social History [...] PM EST Office Visit Orthopedic Surgery - [place] [address] [phone] Ed Cowart, DPM [address] [phone] Health Maintenance Due Date Last Done Comments Breast Cancer Screening 1970 Diabetes: Annual GFR (Glomerular Filtration Rate) 1970 Diabetes: Annual Foot Exam 1980 Diabetes: Annual Retina Eye Exam 1980 Cervical Cancer Screening: Pap Smear 1991 Colorectal Cancer Screening: Colonoscopy 10/07/2023 HIV Screening 10/07/2023 Hepatitis C Screening 10/07/2023 Social Influencers of Health Screening 10/07/2023 Diabetes: Annual Urine Albumin-Creatinine Ratio (uACR) 07/11/2024 Depression Screening 09/13/2024 Hypertension/CHF/CAD Annual BMP Blood Test 10/16/2024 COVID-19 Vaccine ( season) 2025 08/04/2022, 08/29/2021, 01/22/2021, Additional history exists Influenza Vaccine (#1) 2025 [...] topic Insurance MEDICAID - [place] Care Teams Senior Accounting Clerk Relationship Specialty Start Date End Date Renetta Gómez MD [address] [place] [phone] [facility] - General 08/25/23
--- OUTSIDE RECORDS SUMMARY | 2025-05-18 13:58 | XMS_ITS | Encounter Summary ---
Author Organization [employer] Address [address] [place] [address] 7[address] [place] [address] Care Team Providers Care Rn Urgent Care Name Role Phone Renetta Gómez MD Primary Care Provide r Reason for Visit * Reason Comments Med Refill Encounter Details Date Type Department Care Team (Late Contact Info) Description 06/16/2023 Refill [facility] MEDICINE [address] [place] [address] Roxana Quinonez MD [address] [place] [address] Social History Tobacco Use Types Packs/Day Years [...] Description 10/12/2025 1:30 PM EST Office Visit [facility] OPTOMETRY [address] [place], [place] [phone] Betina De La Rosa, OD [address] [place] [address] documented as of this encounter Visit Diagnoses Not on filedocumented in this encounter Additional Health Concerns Assessment Noted Time PHQ-9 Depression Total Score: 0 04/06/20 23 10:11 AM EDT documented as of this encounter Care Teams Rn Urgent Care Relationship Specialty Start Date End Date Renetta Gómez MD [address] [place] [address] PCP - General Family Medicine 12/29/18 documented as of this encounter
--- OUTSIDE RECORDS SUMMARY | 2025-05-18 13:58 | XMS_ITS | Encounter Summary ---
Author Organization [employer] Address [address] [place] [address] 7t [place] [address] Care Team Providers Care Forest Fire Equipment Operator Name Role Phone Renetta Gómez MD Primary Care Provide r Encounter Details Date Type Department Care Team (Late st Contact Info) Description 12/02/2022 Orders Only [facility] MED & PEDS [address] [place] [address] Lizbeth Navarro LPN Social History Tobacco Use [...] Office Visit [facility] OPTOMETRY [address] [place] [address] Betina De La Rosa, OD 230 [place] [address] documented as of this encounter Visit Diagnoses Not on filedocumented in this encounter Care Teams Forest Fire Equipment Operator Relationship Specialty Start Date End Date Renetta Gómez MD 230 [place] [address] PCP - General Family Medicine 12/29/18 documented as of this encounter
--- OUTSIDE RECORDS SUMMARY | 2025-05-18 13:58 | XMS_ITS | Encounter Summary ---
Author Organization [employer] Address [address] [place] [address] 7t [place] [address] Care Team Providers Care Manager Helpdesk Name Role Phone Renetta Gómez MD Primary Care Provide r Encounter Details Date Type Department Care Team (Late st Contact Info) Description 11/10/2022 Orders Only [facility] CHC MED & PEDS [address] [place] [address] Lizbeth Navarro LPN Social History Tobacco Use [...] Description 10/12/2025 1:30 PM EST Office Visit [facility] OPTOMETRY [address] [place] [address] Betina De La Rosa, OD 230 [place] [address] documented as of this encounter Visit Diagnoses Not on filedocumented in this encounter Care Teams Manager Helpdesk Relationship Specialty Start Date End Date Renetta Gómez MD 230 [place] [address] PCP - General Family Medicine 12/29/18 documented as of this encounter
--- OUTSIDE RECORDS SUMMARY | 2025-05-18 13:58 | XMS_ITS | Clinical Summary ---
Author Organization [employer] Address [address] [facility] 7t [place] [address] Care Team Providers Care Tyre Builder Name Role Phone Renetta Gómez MD Primary Care Provide r Allergies Active Allergy Reactions Criticality Noted Date Comments Acetaminophen 12/29/2018 Other reaction(s): Hives / Skin Rash Codeine 12/29/2018 Other reaction(s): Hives / Skin Rash Shellfish Allergy Angioedema High 12/09/2023 Can eat clams and fish Medications FREESTYLE LITE test stripIndications: Type 2 diabetes mellitus without complication, unspecified whether technician terminal and repeater insulin use ([facility]) USE TO TEST FINGER STICK BLOOD SUGAR two (2) times a day 100 strip 1 12/03/19 23 Active escitalopram (Lexapro) 20 MG tablet Take 20 mg by mouth in the morning. 06/23/20 Active traZODone (Desyrel) 150 MG tablet Take 150 mg by mouth at bedtime. 06/11/20 23 Active Continuous Blood Gluc Glycerine Plant Operator (FreeStyle Oren 2 Fults) deviceIndications :Type 2 diabetes mellitus with hyperglycemia, with long-term current use of insulin ([facility]) Scan sensor every 8 hours 1 each 07/01/20 23 Active Continuous Blood Gluc Sensor (FreeStyle Oren 2 Sensor) miscIndications:T ype 2 diabetes mellitus with hyperglycemia, with long-term current use of insulin ([facility]) Apply 1 sensor every 14 days 2 each 07/01/20 23 Active Trulicity 4.5 MG/0.5ML solution pen-injectorIndic ations:Type 2 diabetes mellitus with hyperglycemia ([facility]) INJECT 4.5 mg SUBCUTANEOUSLY EVERY WEEK 2 mL 3 10/06/19 24 Active EPINEPHrine (Epipen) 0.3 MG/0.3ML injection syringeIndication s:Seafood allergy Inject 0.3 mL (0.3 mg) as directed 1 (one) time if needed for anaphylaxis. Inject into upper leg. Call 911 after use. 2 each 12/09/19 24 Active naproxen (Naprosyn) 500 MG tablet [...] ONCE DAILY AT BEDTIME 11/05/19 24 Active fluticasone (Flonase) 50 MCG/ACT nasal spray Administer 2 sprays into each nostril Once per day. Shake gently. Before first use, prime pump. After use, clean tip and replace cap. 16 g 2 02/29/20 24 Active traZODone (Desyrel) 100 MG tabletIndications :Primary insomnia Take 2 tablets (200 mg) by mouth at bedtime. 60 tablet 1 05/17/20 24 Active Baqsimi Two Pack 3 MG/DOSE nasal [...] AREA TOPICALLY ONCE DAILY 06/14/20 24 Active insulin degludec (Tresiba FlexTouch) 200 UNIT/ML injectionIndicati ons:Type 2 diabetes mellitus with hyperglycemia (CMS/HCC) INJECT 74 UNITS SUBCUTANEOUSLY ONCE DAILY 18 mL 3 08/07/20 24 Active pioglitazone (Actos) 15 MG tabletIndications :Type 2 diabetes mellitus with diabetic polyneuropathy ([facility]) Take 1 tablet (15 mg) by mouth Once per day. 90 tablet 3 08/07/20 24 Active hydrOXYzine HCl (Atarax) 25 MG tabletIndications :Pruritus Take 1 tablet (25 mg) by mouth 2 times daily. 60 tablet 2 04/16/20 25 Active omeprazole (PriLOSEC) [address] capsuleIndication s:Gastroesophagea l reflux disease, unspecified whether esophagitis present Take 1 capsule (40 mg) by mouth before breakfast. Do not crush or chew. 90 capsule 1 04/16/20 25 Active levothyroxine (Synthroid, Levoxyl) 25 MCG tabletIndications :Hypothyroidism, unspecified type Take 1 tablet (25 mcg) by mouth before breakfast. 90 tablet 3 04/16/20 25 Active albuterol 108 (90 Base) MCG/ACT inhalerIndication s:Mild intermittent asthma without complication Inhale 2 puffs every 6 (six) hours if needed for wheezing. 18 g 11 04/16/20 25 026 Active atorvastatin (Lipitor) 20 MG tabletIndications :Type 2 diabetes mellitus with hyperglycemia, with long-term current use of insulin ([facility]) Take 1 tablet (20 mg) by mouth Once per day. 90 tablet 3 04/16/20 25 Active hydrOXYzine pamoate (Vistaril) 50 MG capsule Take 1 capsule by mouth 2 times daily. 04/14/20 25 Active ketoconazole (NIZOral) 2 % cream APPLY TO THE AFFECTED AREA TOPICALLY ONCE DAILY Active busPIRone (Buspar) 15 MG tablet Take 1 tablet by mouth 2 times daily. 04/02/20 25 Active Insulin Lispro 100 UNIT/ML solution USE IN INSULIN pump UP TO 130 UNITS ONCE DAILY DIRECTED 10/21/19 25 Active levothyroxine (Synthroid, Levoxyl) 50 MCG tablet Take 1 tablet by mouth Once per day. 01/21/20 25 Active Ozempic, 2 MG/DOSE, 8 MG/3ML solution pen-injector INJECT 2MG SUBCUTANEOUSLY EACH WEEK 04/10/20 25 Active busPIRone (Buspar) 7.5 MG tablet TAKE 1 TABLET BY MOUTH 3 (THREE) TIMES A DAY. TAKE 1/2 HOUR BEFORE MEALS 06/11/20 025 Disconti nued(The rapy complete d) Ozempic, 1 MG/DOSE, 4 MG/3ML solution pen-injector INJECT 1mg SUBCUTANEOUSLY EACH WEEK 05/29/20 025 Disconti nued(The rapy complete d) insulin lispro (HumaLOG) 100 UNIT/ML injectionIndicati ons:Type 2 diabetes mellitus with hyperglycemia (CMS/HCC),ocean transportation intermediary (current) use of insulin (CMS/HCC) Inject 24 Units under the skin with breakfast, with lunch, and with evening meal. 4 mL 2 08/07/20 025 Disconti nued(The rapy complete d) Active Problems Problem Noted Date Diagnosed Date [...] up: with endocrinology as scheduled Fibromyalgia 06/30/2024 ocean transportation intermediary current use of insulin 06/30/2024 Liver cirrhosis [...] Data 04/16/2025 11:15 AM EDT Office Visit [facility] MEDICINE [address] [place] [address] Renetta Gómez MD Type 2 diabetes mellitus with hyperglycemia, with long-term current use of insulin (CMS/HCC) (Primary Dx); Cirrhosis of liver without ascites, unspecified hepatic cirrhosis type (CMS/HCC); Dietary counseling; Exercise counseling; Chronic right shoulder pain; Pruritus; Gastroesophageal reflux disease, unspecified whether esophagitis present; Hypothyroidism, unspecified type; Mild intermittent asthma without complication 04/16/2025 Travel 04/10/2025 2:00 PM EDT Office Visit [facility] OPTOMETRY [address] [place] [address] Rj, Betina, OD 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 2 diabetes mellitus (CMS/HCC) (Primary Dx); Age-related nuclear cataract of both eyes; Dry eyes; Presbyopia 04/10/2025 Travel 04/10/2025 Telephone [facility] MED[facility] [address] [place] [address] Renetta Gómez MD No Show 04/09/[address] [address] Renetta Gómez MD Chart Prep 04/03/2025 Patient Outreach [facility] CH[facility] MED & PEDS [address] [place], [place] [phone] Renetta Gómez MD Pre-visit Planning (SDOH unable to reach LVM ) 04/02/2025 Telephone [facility] MEDICINE [address] [place] [address] Renetta Gómez MD PT1 (PT-1 Request [id number] Pending - [facility] Gastroenterology ( Approved )/PT-1 Request [id number] Pending - [facility]) 03/29/2025 Telephone [facility] MED[facility]INE [address] [place] [phone] Renetta Gómez MD PT-1 03/15/2025 Orders Only [facility] External Provider, [facility] from Last 3 Months Immunizations Immunization Administration [...] Description 10/12/2025 1:30 PM EST Office Visit [facility] OPTOMETRY [address] [place] [address] Rj, Betina, OD [address] [place] [address] Health Maintenance Due Date Last Done Comments CT Colonography 1970 FIT DNA/Cologuard 1970 FIT 1970 FOBT 1970 Sigmoidoscopy 1970 Diabetes: Foot Exam 1980 Cervical Cancer Screening 05/08/2025 HPV/Cotest 05/08/2025 05/08/2020, 02/10/2019 Pap Smear 05/08/2025 05/08/2020 Mammogram 05/12/2025 05/12/2024, 04/14, 12/30/2020, Additional history exists COVID-19 Vaccine ( season) 2025 08/04/2022, 08/29/2021, [...] hyperglycemia, with long-term current use of insulin ([facility]) POCT GLUCOSE Routine 04/16/2025 11:41 AM EDT Type 2 diabetes mellitus with hyperglycemia, with long-term current use of insulin (CMS/[facility]) OCT, RETINA - OU - BOTH EYES Routine 04/10/2025 2:00 PM EDT 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 05/09/2025 12:4 8 PM EDT 05/09/2025 12:51 PM EDT Generic External Data Provider LAB BLOOD ORDERAB LES Final Result Performing Organization Address City/State/[facility] Co de Phone Number [facility] [address] [place] [phone] * (ABNORMAL) POCT HGB A1C (04/16/2025 11:42 AM EDT) Pathologist [facility] Hemoglobin A1C 6.0(A) 4.0 - 5.7 % QC Media Lot # [id number] Lot# Expiration Date 3,,027 Blood 04/16/2025 11:4 2 AM EDT us Renetta Pedro MD POINT OF CARE TEST EN TER/EDIT ORDERABLES Final Result * POCT Glucose (04/16/2025 11:41 AM EDT) Pathologist [facility] Glucose Blood, POC 123 60 - 200 mg/dL QC Media Lot # [id number] Lot# Expiration Date [id number] Blood Capillary blood specimen / Unknown 04/16/2025 11:41 AM EDT Renetta Pedro MD POINT OF CARE TEST [...] AM EDT Narrative 03/15/2025 8:46 AM EDT [place] [address] Ultrasound Report Signed Patient: Renata Gusman MR#: [id number] : 1970 Acct:[id number] Age/Sex: 55 / F ADM Date: 03/15/25 Loc: HO.US Attending Dr: Margie Hugo [facility]- Ordering Physician: Margie Hugo [facility] Date of Service: 03/15/25 Procedure(s): US abdomen sullivan w elastography Accession Number(s): [id number] cc: Renetta Gómez MD; Margie Hugo [facility] EXAMINATION: US ABDOMEN LIMITED WITH LIVER ELASTOGRAPHY [...] Justin Marin MD 03/15/2025 08:42 AM EDT RP Dictated By: Justin Marin MD Signed By: <Electronically signed by Justin Marin MD in OV> 03/15/25 0842 DD/ 0800 TD/TT: 03/15/25 0825 Instructional Design Manager: Procedure Note Donotuseinterpreter, Image - 03/15/2025 [place] [address] Ultrasound Report Signed Patient: Julia Gusman#: [id number] : 1970Acct:[id number] Age/Sex: 55 / FADM Date: 03/15/25 Loc: HO.US Attending Dr: Margie BOSWELL Ordering Physician: Margie Hugo Date of Service: 03/15/25 Procedure(s): US abdomen sullivan w elastography Accession Number(s): [id number] cc: Renetta Gómez MD; Margie Hugo EXAMINATION: US ABDOMEN LIMITED WITH LIVER ELASTOGRAPHY [...] 03/15/25 0842 DD/ 0800 TD/TT: 03/15/25 0825 Instructional Design Manager: us [facility] External Provider IMG US PROCEDURES Edited Result - Final * (ABNORMAL) Lipid Panel, Standard (07/12/2024 10:54 AM EDT) Triglycerides 170(H) <150 mg/dL [facility] Comment:Desirable Triglyceri de: less than 150 mg/dLBorderline High Triglyceride 150-199 mg/dLHigh Triglyceride: 200-499 mg/dLVery High Triglyceride: greater than or equal to 5OO mg/dL Cholesterol 179 <200 mg/dL [facility] Comment:Desirable Cholestero l: less than 200 mg/dLBorderline High Cholesterol: 200-239 mg/dLHigh Cholesterol: greater than 239 mg/dL LDL Cholesterol Calculated 109(H) <100 mg/dL [facility] Comment:Desirable LDL: less than 100 mg/dLNear Optimal/Above Optimal LDL: 110- 129 mg/dLBorderline High LDL: 130-159 mg/dLHigh LDL: 160-189 mg/dLVery High LDL: greater than or equal to 190 mg/dL HDL Cholesterol 36(L) >40 mg/dL [facility] Comment:Desirable HDL: great er than 40 mg/dL Note: This HDL assay may give artificially low results in patients with liver disease. 07/12/2024 10:5 4 AM EDT 07/12/2024 10:54 AM EDT Generic External Data Provider LAB BLOOD ORDERAB LES Final Result Performing Organization Address [facility] Co de Phone Number [facility] [address] [place] [phone] * Albumin, Random Urine W/Creatinine (07/12/2024 10:52 AM EDT) Creatinine, Urine 269.94 mg/dL [facility] Microalbumin Urine 33.0 mg/L [facility] Microalbum Creatinine Ratio Ur 12.2 <30 ug/mg cr [facility] Comment:Albumin/Creatinine R atio Reference Ranges: Normal: < 30 ug/mg creatinine Microalbuminuria: 30 - 300 ug/mg creatinineClinical Albuminuria: > 300 ug/mg creatinine 07/12/2024 10:5 2 AM EDT 07/12/2024 11:37 AM EDT us Generic External Data Provider LAB URINE ORDERAB LES Final Result Performing Organization Address [facility]/ZIP Co de Phone Number [facility] [address] [place] [phone] * BI Mammogram Screening Tomosynthesis Bilateral (05/12/2024 10:15 AM EDT) Anatomical Region Laterality Modality Breast Bilateral Mammography 05/12/2024 10:1 5 AM EDT Narrative 06/02/2024 10:40 PM EDT [address] [place] [address] Mammography Report Signed Patient: Renata Gusman MR#: [id number] : 1970 Acct:[id number] Age/Sex: 54 / F ADM Date: 05/12/24 Loc: HO.MAMMO Attending Dr: Renetta Pedro MD Ordering Physician: Renetta Gómez MD Results: 1Negative Date of Service: 05/12/24 Follow Up: 1 Year From Orig inal Mammogram Procedure(s): MM tomosynthesis screening BI Accession Number(s): [id number] cc: Renetta óGmez MD EXAMINATION: MM SCREENING DIGITAL BREAST TOMOSYNTHESIS, [...] OV> 06/02/247 DD/ 1015 TD/TT: 05/12/24 1030 Instructional Design Manager: Procedure Note Donotuseinterpreter, Image - 06/02/[address] [place] [address] Mammography Report Signed Patient: Julia Gusman#: [id number] : 1970Acct:[id number] Age/Sex: 54 / FADM Date: 05/12/24 Loc: HO.MAMMO Attending Dr: Renetta Pedro MD Ordering Physician: Renetta Gómez MDResults: 1Negative Date of Service: 05/12/24Follow Up: 1 Year From Orig inal Mammogram Procedure(s): MM tomosynthesis screening BI Accession Number(s): [id number] cc: Renetta Gómez MD EXAMINATION: MM SCREENING [...] by Beth Milian DO in OV> 06/02/24 7347 DD/ 1015 TD/TT: 05/12/24 1030 Instructional Design Manager: Renetta Pedro MD IMG BI PROCEDURES Nael aftab Result - Final * HIV Ab/Ag (DAT JOHNSON) (07/02/2023 8:37 AM EDT) HIV AB/AG Nonreactive Nonreactive [facility] Comment:HIV-1 p24 Ag and/or HIV-1/HIV-2 Ab not detected.A test result that is nonreactive does not exclude thepossibility of exposure to or infection with HIV-1 and/orHIV-2. Nonreactive results in this assay for individualswith prior exposure to HIV-1 and/or HIV-2 may be due toantigen and antibody levels that are below the limit ofdetection of this assay.The in3DepthniClearStar HIV Ag/Ab Combo assay result andsupplemental assay results should be interpreted inconjunction with the patient's clinical presentation,history and other laboratory results. If the results areinconsistent with clinical evidence, additional testing issuggested to confirm the result. 07/02/2023 8:37 AM EDT 07/02/2023 11:24 AM EDT Renetta Pedro MD LAB BLOOD ORDERABLES Final Result [facility] [address] [place] [phone] * Hm Colonoscopy (09/15/2022) [facility] Colonoscopy Normal Normal Narrative Celia Centeno - 09/15/2022 Repeat Colonoscopy in 5 years due to fair prep or earlier if clinically indicated . See external hospital admission note on 09/15/2022(book marked ) Historical Provider HEALTH MAINTENANCE Final Result * Hepatitis A,B,C Profile (08/11/2022 11:00 AM EST) [facility] Hepatitis B Core Antibody Nonreactive Nonreactive CONVERTED [...] HIGH RISK, CERVICAL Not Detected NOT DETECTED [facility] Comment: Not Detected High Risk HPV types (16,18,31,33,35,39,45,51,52, 56,58,59,66,68) were not detected. Other HPV types which cause anogenital lesions may be present. The significance of the other types of HPV in malignant processes has not been established. Methodology: Real Time PCR 05/08/2020 3:09 PM EDT Renetta Pedro MD HISTORICAL/NON ORDERA BLE LABS Final Result Performing Organization Address [facility] Co de Phone Number [facility] [address] * THINPREP TIS PAP (05/08/2020 3:09 PM EDT) Clinical Information: SEE COMMENT [facility] [...] has been evaluated with computer assisted technology. Triage Clinician: SEE COMMENT [facility] Comment: LT, CT(ASCP) CT screening location: [address] [address] Infection SEE COMMENT [facility] [...] Final Result [facility] [address] from Last 3 Months or Most Recently Relevant to Health Maintenance Insurance [facility] C3 Care Teams Tyre Builder Relationship Specialty Start Date End Date Renetta Gómez MD [address] [place] [phone] PCP - General Family Medicine 12/29/18
--- OUTSIDE RECORDS SUMMARY | 2025-05-18 13:58 | XMS_ITS | Encounter Summary ---
Author Organization [employer] Address [address] [facility] 7t [place] [address] Care Team Providers Care Accountant Auditor Name Role Phone Renetta Gómez MD Primary Care Provide r Reason for Visit * Reason Onset Date Comments PT1 03/21/2024 Encounter Details Date Type Department Care Team ([facility] st Contact Info) Description 03/21/2024 Telephone [facility] MEDICINE 230 [place], [place] [phone] Renetta Gómez MD 230 [place] [address] PT1 Social History Tobacco Use Types Packs/Day [...] facility name: Dr.Allison Bennett Facility Address: [address] [place], [place] Escort needed: Y/N: Yes Do you have a wheelchair: no If yes- Manual or electric: no Visits: 4 Patient calling requesting PT1 Home Address verified: Y/N: Yes Provider name or facility name: Dr.Corina Leon Facility Address: [address], [place] Escort needed: Y/N: Yes Do you have a wheelchair: Y/N: No If yes- Manual or electric: no Visits: 4 Patient calling requesting PT1 Home Address verified: Y/N: Yes Provider name or facility name: Dr. Ele Esparza Facility Address: [address], [place] Escort needed: Y/N: Yes Do you have a wheelchair: Y/N: No If yes- Manual or electric: no Visits: 4 Patient calling requesting PT1 Home Address verified: Y/N: No Provider name or facility name: Dr. Margie Hugo Facility Address: [address] [place], [place] Escort needed: Y/N: Yes Do you have a wheelchair: Y/N: No If yes- Manual or electric: no Visits: 4 * Telephone Encounter - Emily Rodriguez - 03/21/2024 12:28 PM EDT Patient calling requesting PT1 Home Address verified: Y/N: Yes Provider name or facility name: [facility] Facility Address: [address] [facility], Escort needed: Y/N: Yes Do you have a wheelchair: Y/N: No If yes- Manual or electric: NO Visits: ALL FUTURE APPTS documented in this encounter Plan of Treatment Upcoming Encounters Date Type Department Care Team (Late st Contact Info) Description 10/12/2025 1:30 PM EST Office Visit [facility] OPTOMETRY [address] [place] [address] Rj, Betina, OD 230 [place] [address] documented as of this encounter Visit Diagnoses Not on filedocumented in this encounter Additional Health Concerns Assessment Noted Time PHQ-9 Depression Total Score: 0 04/06/20 23 10:11 AM EDT documented as of this encounter Care Teams Accountant Auditor Relationship Specialty Start Date End Date Renetta Gómez MD 230 [place] [address] PCP - General Family Medicine 12/29/18 documented as of this encounter
--- OUTSIDE RECORDS SUMMARY | 2025-05-18 13:58 | XMS_ITS | Encounter Summary ---
Author Organization [employer] [facility] Address [address] [place] [address] 7t [place] [address] Care Team Providers Care Employment Consultant Name Role Phone Renetta Gómez MD Primary Care Provide r Reason for Visit * Reason Comments Med Refill Encounter Details Date Type Department Care Team (Late Contact Info) Description 03/24/2023 Refill [facility]INE 230 [place] [address] Roxana Quinonez MD 230 [place] [address] Social History Tobacco Use Types Packs/Day Years [...] Description 10/12/2025 1:30 PM EST Office Visit [facility] OPTOMET[facility] [address] [place] [address] Betina De La Rosa, OD 230 [place] [address] documented as of this encounter Visit Diagnoses Not on filedocumented in this encounter Care Teams Employment Consultant Relationship Specialty Start Date End Date Renetta Gómez MD 230 [place] [address] PCP - General Family Medicine 12/29/18 documented as of this encounter
--- OUTSIDE RECORDS SUMMARY | 2025-05-18 13:58 | XMS_ITS | Encounter Summary ---
Author Organization [employer] Address 75 [facility] 7t [place] [address] Care Team Providers Care Catalog Specialist Name Role Phone Renetta Gómez MD Primary Care Provide r Reason for Visit * Reason Onset Date Comments PT1 05/24/2024 Encounter Details Date Type Department Care Team ([facility] st Contact Info) Description 05/24/2024 Telephone [facility] MEDICINE 230 [place], [place] [phone] Renetta Gómez MD 230 [place] [address] PT1 Social History Tobacco Use Types Packs/Day [...] facility name: Ed Cowart DPM Facility Address: [address] [place] [address] [place] [address] Escort needed: Y/N: Yes Do you have a wheelchair: Y/N: No If yes- Manual or electric: Visits: 4-5 visits a year documented in this encounter Plan of Treatment Upcoming Encounters Date Type Department Care Team (Late st Contact Info) Description 10/12/2025 1:30 PM EST Office Visit [facility] OPTOMETRY [address] [place] [address] Rj, Betina, OD 230 [place] [address] documented as of this encounter Visit Diagnoses Not on filedocumented in this encounter Additional Health Concerns Assessment Noted Time PHQ-9 Depression Total Score: 0 04/06/20 23 10:11 AM EDT documented as of this encounter Care Teams Catalog Specialist Relationship Specialty Start Date End Date Renetta Gómez MD 230 [place], [place] [phone] PCP - General Family Medicine 12/29/18 documented as of this encounter
--- OUTSIDE RECORDS SUMMARY | 2025-05-18 13:58 | XMS_ITS | Encounter Summary ---
Author Organization [employer] Address 75 [facility] 7t [place] [address] Care Team Providers Care Steel Shot Header Operator Name Role Phone Renetta Gómez MD Primary Care Provide r Reason for Visit * Reason Onset Date Comments PT-1 11/08/2024 Encounter Details Date Type Department Care Team ([facility] st Contact Info) Description 11/08/2024 Telephone [facility] MEDICINE 230 [place], [place] [phone] Renetta Gómez MD 230 [place] [address] PT-1 Social History Tobacco Use Types Packs/Day [...] Y/N: Yes Provider name or facility name: [address] [place] [address] Dr. Wolfe 203 Escort needed: Y/N: No Do you have a wheelchair: Y/N: No If yes- Manual or electric: Visits: (4) ( monthly) documented in this encounter Plan of Treatment Upcoming Encounters Date Type Department Care Team (Late st Contact Info) Description 10/12/2025 1:30 PM EST Office Visit [facility] OPTOMETRY [address] [place] [address] Rj, Betina, OD 230 [place] [address] documented as of this encounter Visit Diagnoses Not on filedocumented in this encounter Additional Health Concerns Assessment Noted Time PHQ-9 Depression Total Score: 0 04/06/20 23 10:11 AM EDT documented as of this encounter Care Teams Steel Shot Header Operator Relationship Specialty Start Date End Date Renetta Gómez MD 230 [place] [address] PCP - General Family Medicine 12/29/18 documented as of this encounter
--- OUTSIDE RECORDS SUMMARY | 2025-05-18 13:58 | XMS_ITS | Encounter Summary ---
Author Organization [employer] Address 75 [facility] 7t [place] [address] Care Team Providers Care Repairer Recreational Vehicle Name Role Phone Renetta Gómez MD Primary Care Provide r Reason for Visit * Reason Comments Med Refill Encounter Details Date Type Department Care Team (Late st Contact Info) Description 07/29/[address] [facility] MEDICINE 230 [place], [place] [phone] Renetta Gómez MD 230 [place] [address] Pruritus Social History Tobacco Use Types Packs/Day [...] t he electric, gas, oil or water Functional Neuromodulation threatened to shut off services in your [...] Description 10/12/2025 1:30 PM EST Office Visit [facility] OPTOMETRY [address] [place], [place] [phone] Betina De La Rosa, OD 230 [place] [address] documented as of this encounter Visit Diagnoses Diagnosis Pruritus Unspecified pruritic disorder documented in this encounter Additional Health Concerns Assessment Noted Time PHQ-9 Depression Total Score: 0 04/06/20 23 10:11 AM EDT documented as of this encounter Care Teams Repairer Recreational Vehicle Relationship Specialty Start Date End Date Renetta Gómez MD [address] [place] [address] PCP - General Family Medicine 12/29/18 documented as of this encounter
--- OUTSIDE RECORDS SUMMARY | 2025-05-18 13:58 | XMS_ITS | Encounter Summary ---
Author Organization [employer] Address [address] [facility] 7t [place] [address] Care Team Providers Care Associate Financial Advisor Name Role Phone Renetta Gómez MD Primary Care Provide r Reason for Visit * Reason Comments Med Refill Encounter Details Date Type Department Care Team (Late Contact Info) Description 12/02/2022 Refill [facility] CHC MED & PEDS [address] [place], [place] [phone] Fannie Ceron MD 230 [place] [address] Type 2 diabetes mellitus without complication, unspecified whether detention insulin use (CMS/HCC) Social History Tobacco Use [...] Description 10/12/2025 1:30 PM EST Office Visit [facility] OPTOMETRY [address] [place], [place] [phone] Betina De La Rosa OD 230 [place] [address] documented as of this encounter Visit Diagnoses Diagnosis Type 2 diabetes mellitus without complication, unspecified whether detention insulin use (CMS/HCC) documented in this encounter Care Teams Associate Financial Advisor Relationship Specialty Start Date End Date Renetta Gómez MD 230 [place] [address] PCP - General Family Medicine 12/29/18 documented as of this encounter
== END 2025-05-18 14:11 | disposition home or self-care (01) ==
LOC: HO.HOS 13:37
PROVIDERS: PCP Internal Medicine
DX: G56.01 Carpal tunnel syndrome, right upper limb (principal); G56.21 Lesion of ulnar nerve, right upper limb; M72.0 Palmar fascial fibromatosis [Dupuytren]; R09.89 Other specified symptoms and signs involving the circulatory and respiratory systems
CPT/HCPCS: 99213

== ENCOUNTER → 2025-05-18 13:36 | Outpatient (BNVA) | payer MEDICAID, SELFPAY | PROVIDERS: PCP Internal Medicine | DX: G56.01 Carpal tunnel syndrome, right upper limb (principal); G56.21 Lesion of ulnar nerve, right upper limb; M72.0 Palmar fascial fibromatosis [Dupuytren]; R09.89 Other specified symptoms and signs involving the circulatory and respiratory systems | CPT/HCPCS: 99212 ==

== ENCOUNTER 2025-05-22 09:21 | Outpatient (REF) | payer MEDICAID, SELFPAY ==
--- OUTSIDE RECORDS SUMMARY | 2025-05-22 10:46 | XMS_ITS | Encounter Summary ---
Author Organization [employer] Address 75 [facility] 7t [place] [address] Care Team Providers Care Wax Pourer Name Role Phone Renetta Gómez MD Primary Care Provide r Encounter Details Date Type Department Care Team (Late st Contact Info) Description 11/10/2022 Orders Only [facility] CHC MED & PEDS [address] [place] [address] Lizbeth Navarro LPN Social History Tobacco Use [...] Care Team (Late st Contact Info) Description 07/25/2025 2:00 PM EST Office Visit [facility] MEDICINE 230 [place] [address] Renetta Gómez MD 230 [place] [address] 10/12/2025 1:30 PM EST Office Visit [facility] OPTOMETRY [address] [place] [address] Betina De La Rosa, OD 230 [place] [address] documented as of this encounter Visit Diagnoses Not on filedocumented in this encounter Care Teams Wax Pourer Relationship Specialty Start Date End Date Renetta Gómez MD 230 [place] [address] PCP - General Family Medicine 12/29/18 documented as of this encounter
--- OUTSIDE RECORDS SUMMARY | 2025-05-22 10:46 | XMS_ITS | Encounter Summary ---
Author Organization [employer] Address [address] [facility] 7t [place] [address] Care Team Providers Care Boring Mill Operator For Metal Name Role Phone Renetta Gómez MD Primary Care Provide r Reason for Visit * Reason Onset Date Comments PT-1 11/08/2024 Encounter Details Date Type Department Care Team ([facility] st Contact Info) Description 11/08/2024 Telephone [facility] MEDICINE 230 [place], [place] [phone] Renetta Gómez MD 230 [place] [address] PT-1 Social History Tobacco Use Types Packs/Day [...] Y/N: Yes Provider name or facility name: [address] [place] [address] Dr. Wolfe 203 Escort needed: Y/N: No Do you have a wheelchair: Y/N: No If yes- Manual or electric: Visits: (4) ( monthly) documented in this encounter Plan of Treatment Upcoming Encounters Date Type Department Care Team (Late st Contact Info) Description 07/25/2025 2:00 PM EST Office Visit [facility] MEDICINE 230 [place] [address] Renetta Gómez MD 230 [place] [address] 10/12/2025 1:30 PM EST Office Visit [facility] OPTOMETRY [address] [place] [address] Betina De La Rosa OD 230 [place] [address] documented as of this encounter Visit Diagnoses Not on filedocumented in this encounter Additional Health Concerns Assessment Noted Time PHQ-9 Depression Total Score: 0 04/06/20 10:11 AM EDT documented as of this encounter Care Teams Boring Mill Operator For Metal Relationship Specialty Start Date End Date Renetta Gómez MD 230 [place] [address] PCP - General Family Medicine 12/29/18 documented as of this encounter
--- OUTSIDE RECORDS SUMMARY | 2025-05-22 10:46 | XMS_ITS | Encounter Summary ---
Author Organization [employer] Address 75 [facility] 7t [place] [address] Care Team Providers Care Cash Applications Associate Name Role Phone Renetta Gómez MD Primary Care Provide r Encounter Details Date Type Department Care Team (Late Contact Info) Description 06/16/2023 Orders Only [facility] CHC MED & PEDS [address] [place], [place] [phone] Lizbeth Navarro LPN Social History Tobacco Use [...] Encounters Date Type Department Care Team (Late Contact Info) Description 07/25/2025 2:00 PM EST Office Visit [facility] MEDICINE 230 [place], [place] [phone] Renetta Gómez MD 230 [place], [place] [phone] 10/12/2025 1:30 PM EST Office Visit [facility] OPTOMETRY [address] [place], [place] [phone] Betina De La Rosa, OD 230 [place], [place] [phone] documented as of this encounter Visit Diagnoses Not on filedocumented in this encounter Additional Health Concerns Assessment Noted Time PHQ-9 Depression Total Score: 0 04/06/20 23 10:11 AM EDT documented as of this encounter Care Teams Cash Applications Associate Relationship Specialty Start Date End Date Renetta Gómez MD 230 [place] [address] PCP - General Family Medicine 12/29/18 documented as of this encounter
--- OUTSIDE RECORDS SUMMARY | 2025-05-22 10:46 | XMS_ITS | Clinical Summary ---
Author Organization [address] [facility] Address 175 [place] [address] Phone Care Team Providers Care Mothers Helper Name Role Phone Renetta Gómez MD [...] pain 06/13/2024 T2DM (type 2 diabetes mellitus) ([facility] V24, [facility] V28) 06/13/2024 Encounters Date Type Department Care Team Description 04/18/2025 1:45 PM EDT Office Visit Orth[facility] [address] [facility] [address] [place] [phone] Ed Cowart, DPM Dermatophytosis of nail (Primary Dx); Diabetic mononeuropathy simplex ([facility] V24, [facility] V28); Acquired hammer toe of right foot; Hammer toe of left foot; Type II diabetes mellitus with peripheral circulatory disorder ([facility] V24, [facility] V28) from Last 3 Months [...] PM EST Office Visit Orthopedic Surgery - [place] [address] [phone] Ed Cowart, DPM [address] [phone] Health Maintenance Due Date Last [...] topic Insurance MEDICAID - [place] Care Teams Mothers Helper Relationship Specialty Start Date End Date Renetta Gómez MD [address] [place] [phone] [facility] - General 08/25/23
--- OUTSIDE RECORDS SUMMARY | 2025-05-22 10:46 | XMS_ITS | Encounter Summary ---
Author Organization [employer] Address [address] [place] [address] 7t [place] [address] Care Team Providers Care Television Installer Helper Name Role Phone Renetta Gómez MD Primary Care Provide r Reason for Visit * Reason Comments Med Refill Encounter Details Date Type Department Care Team (Late st Contact Info) Description 06/16/2023 Refill [facility] MEDICINE 230 [place], [place] [phone] Roxana Quinonez MD [address] [place] [phone] Social History Tobacco Use Types Packs/Day Years [...] Description 07/25/2025 2:00 PM EST Office Visit [facility] MEDICINE 230 [place], [place] [phone] Renetta Gómez MD 230 [place], [place] [phone] 10/12/2025 1:30 PM EST Office Visit [facility] OPTOMETRY [address] [place], [place] [phone] Betina De La Rosa, OD 230 [place], [place] [phone] documented as of this encounter Visit Diagnoses Not on filedocumented in this encounter Additional Health Concerns Assessment Noted Time PHQ-9 Depression Total Score: 0 04/06/20 23 10:11 AM EDT documented as of this encounter Care Teams Television Installer Helper Relationship Specialty Start Date End Date Renetta Gómez MD 230 [place], [place] [phone] PCP - General Family Medicine 12/29/18 documented as of this encounter
--- OUTSIDE RECORDS SUMMARY | 2025-05-22 10:46 | XMS_ITS | Encounter Summary ---
Author Organization [email or web address] Address [address] [place] [address] 7t [place] [address] Care Team Providers Care Diamond Merchant Name Role Phone Renetta Gómez MD Primary Care Provide r Reason for Visit * Reason Comments Med Refill Encounter Details Date Type Department Care Team (Late Contact Info) Description 12/02/2022 Refill [facility] CHC MED & PEDS 505 [place], [place] [phone] Fannie Ceron MD 230 [place] [address] Type 2 diabetes mellitus without complication, unspecified whether fdc insulin use ([facility] Social History Tobacco Use Types Packs/Day Years [...] Description 07/25/2025 2:00 PM EST Office Visit [facility] MEDICINE 230 [place] [address] Renetta Gómez MD 230 [place] [address] 10/12/2025 1:30 PM EST Office Visit [facility] OPTOMETRY 267 [place], [place] [phone] Betina De La Rosa, OD 230 [place] [address] documented as of this encounter Visit Diagnoses Diagnosis Type 2 diabetes mellitus without complication, unspecified whether fdc insulin use ([facility]) documented in this encounter Care Teams Diamond Merchant Relationship Specialty Start Date End Date Renetta Gómez MD 230 [place] [address] PCP - General Family Medicine 12/29/18 documented as of this encounter
--- OUTSIDE RECORDS SUMMARY | 2025-05-22 10:46 | XMS_ITS | Encounter Summary ---
Author Organization [employer] Address [address] [facility] 7t [place] [address] Care Team Providers Care Desk Interviewer Name Role Phone Renetta Gómez MD Primary Care Provide r Reason for Visit * Reason Comments Med Refill Encounter Details Date Type Department Care Team (Late st Contact Info) Description 09/25/2023 Refill [facility] 230 [place], [place] [phone] Renetta Gómez MD 230 [place], [place] [phone] Hypothyroidism, unspecified type Social History Tobacco Use [...] Description 07/25/2025 2:00 PM EST Office Visit [facility] MEDICINE 230 [place] [address] Renetta Gómez MD 230 [place] [address] 10/12/2025 1:30 PM EST Office Visit [facility] OPTOMETRY [address] [place] [address] Rj, Betina, OD 230 [place] [address] documented as of this encounter Visit Diagnoses Diagnosis Hypothyroidism, unspecified type documented in this encounter Additional Health Concerns Assessment Noted Time PHQ-9 Depression Total Score: 0 04/06/20 23 10:11 AM EDT documented as of this encounter Care Teams Desk Interviewer Relationship Specialty Start Date End Date Renetta Gómez MD 230 [place] [address] PCP - General Family Medicine 12/29/18 documented as of this encounter
--- OUTSIDE RECORDS SUMMARY | 2025-05-22 10:46 | XMS_ITS | Clinical Summary ---
Author Organization [employer] Address [address] [facility] 7t [place] [address] Care Team Providers Care Creasing And Cutting Press Feeder Name Role Phone Renetta Gómez MD Primary Care Provide r Allergies Active Allergy Reactions Criticality Noted Date Comments Acetaminophen 12/29/2018 Other reaction(s): Hives / Skin Rash Codeine 12/29/2018 Other reaction(s): Hives / Skin Rash Shellfish Allergy Angioedema High 12/09/2023 Can eat clams and fish Medications FREESTYLE LITE test stripIndications: Type 2 diabetes mellitus without complication, unspecified whether manager renewable energy insulin use ([facility]) USE TO TEST FINGER STICK BLOOD SUGAR two (2) times a day 100 strip 1 12/03/19 23 Active escitalopram (Lexapro) 20 MG tablet Take 20 mg by mouth in the morning. 06/23/20 Active traZODone (Desyrel) 150 MG tablet Take 150 mg by mouth at bedtime. 06/11/20 23 Active Continuous Blood Gluc First Sampler (FreeStyle Oren 2 [place]) deviceIndications :Type 2 diabetes mellitus with hyperglycemia, with long-term current use of insulin ([facility]) Scan sensor every 8 hours 1 each 07/01/20 23 Active Continuous Blood Gluc Sensor (FreeStyle Oren 2 Sensor) miscIndications:T ype 2 diabetes mellitus with hyperglycemia, with long-term current use of insulin ([facility]) Apply 1 sensor every 14 days 2 each 07/01/20 23 Active Trulicity 4.5 MG/0.5ML solution pen-injectorIndic ations:Type 2 diabetes mellitus with hyperglycemia ([facility]) INJECT 4.5 mg SUBCUTANEOUSLY EVERY [...] :Type 2 diabetes mellitus with diabetic polyneuropathy ([facility]) Take 1 tablet (15 mg) [...] hyperglycemia, with long-term current use of insulin ([facility]) Take 1 tablet (20 mg) [...] injectionIndicati ons:Type 2 diabetes mellitus with hyperglycemia (CMS/HCC),tub operator (current) use of insulin (CMS/HCC) Inject 24 [...] up: with endocrinology as scheduled Fibromyalgia 06/30/2024 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 MEDICINE [address] [place] [address] Renetta Gómez MD Type 2 diabetes mellitus with hyperglycemia, with long-term current use of insulin (CMS/HCC) (Primary Dx); Cirrhosis of liver without ascites, unspecified hepatic cirrhosis type (CMS/HCC); Dietary counseling; Exercise counseling; Chronic right shoulder pain; Pruritus; Gastroesophageal reflux disease, unspecified whether esophagitis present; Hypothyroidism, unspecified type; Mild intermittent asthma without complication 04/16/2025 Travel 04/10/2025 2:00 PM EDT Office Visit [facility] OPTOMETRY [address] [place] [address] Rj, Betina, OD 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 2 diabetes mellitus (CMS/HCC) (Primary Dx); Age-related nuclear cataract of both eyes; Dry eyes; Presbyopia 04/10/2025 Travel 04/10/2025 Telephone [facility] MEDICINE [address] [place] [address] Renetta Gómez MD No Show 04/09/[address] [address] Renetta Gómez MD Chart Prep 04/03/2025 Patient Outreach [facility] MED & PEDS [address] [place], [place] [phone] Renetta Gómez MD Pre-visit Planning (SDOH unable to reach LVM ) 04/02/2025 Telephone [facility] MEDICINE [address] [place] [address] Renetta Gómez MD PT1 (PT-1 Request [id number] Pending - [facility] [place] Gastroenterology ( Approved )/PT-1 Request [id number] Pending - [facility]) 03/29/2025 Telephone [facility] MEDICINE [address] [place] [phone] Renetta Gómez MD PT-1 03/15/2025 Orders Only [facility] External Provider, [facility] from Last 3 Months Immunizations Immunization Administration [...] Description 07/25/2025 2:00 PM EST Office Visit [facility] MEDICINE [address] [place] [address] Renetta Gómez MD [address] [place] [address] 10/12/2025 1:30 PM EST Office Visit 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 05/09/2025 12:4 8 PM EDT 05/09/2025 12:51 PM EDT us Generic External Data Provider LAB BLOOD ORDERAB LES Final Result [facility] [address] [place] [address] [phone] * (ABNORMAL) POCT HGB A1C (04/16/2025 11:42 AM EDT) Hemoglobin A1C 6.0(A) 4.0 - 5.7 % QC Media Lot # [id number] Lot# Expiration Date Blood 04/16/2025 11:4 2 AM EDT us Renetta Pedro MD POINT OF CARE TEST EN TER/EDIT ORDERABLES Final Result * POCT Glucose (04/16/2025 11:41 AM EDT) Glucose Blood, POC 123 60 - 200 mg/dL QC Media Lot # [id number] Lot# Expiration Date 2383,026 Blood Capillary blood specimen / Unknown 04/16/2025 [...] AM EDT Narrative 03/15/2025 8:46 AM EDT [place] [address] Ultrasound Report Signed Patient: Renata Gusman MR#: [id number] : 1970 Acct:[id number] Age/Sex: 55 / F ADM Date: 03/15/25 Loc: HO.US Attending Dr: Margie BOSWELL Ordering Physician: Margie Hugo Date of Service: 03/15/25 Procedure(s): US abdomen sullivan w elastography Accession Number(s): [id number] cc: Renetta Gómez MD; Margie Hugo EXAMINATION: [...] 03/15/25 0842 DD/ 0800 TD/TT: 03/15/25 0825 Human Resources Consultant: Procedure Note Donotuseinterpreter, Image - 03/15/[address] [address] Ultrasound Report Signed Patient: Julia Gusman#: [id number] : 1970Acct:[id number] Age/Sex: 55 / FADM Date: 03/15/25 Loc: HO.US Attending Dr: Margie DIEGO-CHANDAN Ordering Physician: Margie Hugo Date of Service: 03/15/25 Procedure(s): US abdomen sullivan w elastography Accession Number(s): [id number] cc: Renetta Gómez MD; Margie Hugo [facility]- EXAMINATION: US ABDOMEN LIMITED WITH LIVER ELASTOGRAPHY [...] OV> 03/15/25 0842 DD/ 08 TD/TT: 03/15/25824 Human Resources Consultant: us [facility] External Provider IMG US PROCEDURES Edited Result - Final * (ABNORMAL) Lipid Panel, Standard (07/12/2024 10:54 AM EDT) Triglycerides 170(H) <150 mg/dL [facility] Comment:Desirable Triglyceri de: less than 150 mg/dLBorderline High Triglyceride 150-199 mg/dLHigh Triglyceride: 200-499 mg/dLVery High Triglyceride: greater than or equal to 5OO mg/dL Cholesterol 179 <200 mg/dL [facility] Comment:Desirable Cholestero l: less than 200 mg/dLBorderline High Cholesterol: 200-239 mg/dLHigh Cholesterol: greater than 239 mg/dL LDL Cholesterol Calculated 109(H) <100 mg/dL [facility] Comment:Desirable LDL: less than 100 mg/dLNear Optimal/Above Optimal LDL: 110- 129 mg/dLBorderline High LDL: 130-159 mg/dLHigh LDL: 160-189 mg/dLVery High LDL: greater than or equal to 190 mg/dL HDL Cholesterol 36(L) >40 mg/dL [facility] Comment:Desirable HDL: great er than 40 mg/dL Note: This HDL assay may give artificially low results in patients with liver disease. 07/12/2024 10:5 4 AM EDT 07/12/2024 10:54 AM EDT us Generic External Data Provider LAB BLOOD ORDERAB LES Final Result Performing Organization Address City/[facility]/ZIP Co de Phone Number [facility] [address] [place] [phone] * Albumin, Random Urine W/Creatinine (07/12/2024 10:52 AM EDT) Creatinine, Urine 269.94 mg/dL [facility] Microalbumin Urine 33.0 mg/L [facility] Microalbum Creatinine Ratio Ur 12.2 <30 ug/mg cr [facility] Comment:Albumin/Creatinine R atio Reference Ranges: Normal: < 30 ug/mg creatinine Microalbuminuria: 30 - 300 ug/mg creatinineClinical Albuminuria: > 300 ug/mg creatinine 07/12/2024 10:5 2 AM EDT 07/12/2024 11:37 AM EDT us Generic External Data Provider LAB URINE ORDERAB LES Final Result Performing Organization Address City/[facility]/ZIP Co de Phone Number [facility] [address] [place] [phone] * BI Mammogram Screening Tomosynthesis Bilateral (05/12/2024 10:15 AM EDT) Anatomical Region Laterality Modality Breast Bilateral Mammography 05/12/2024 10:1 5 AM EDT Narrative 06/02/2024 10:40 PM EDT [address] [place] [address] Mammography Report Signed Patient: Renata Gusman MR#: [id number] : 1970 Acct:[id number] Age/Sex: 54 / F ADM Date: 05/12/24 Loc: MELIA Attending Dr: Renetta Pedro MD Ordering Physician: Renetta Gómez MD Results: 1Negative Date of Service: 05/12/24 Follow Up: 1 Year From Orig [facility] Mammogram Procedure(s): MM tomosynthesis screening BI Accession Number(s): [id number] cc: Renetta Gómez MD EXAMINATION: MM SCREENING [...] signed by Beth Milian DO in OV> 06/02/242236 DD/ 1015 TD/TT: 05/12/24 1030 Human Resources Consultant: Procedure Note Donotuseinterpreter, Image - 06/02/2024 [facility] [address] [place] [address] Mammography Report Signed Patient: Julia Gusman#: [id number] : 1970Acct:[id number] Age/Sex: 54 / FADM Date: 05/12/24 Loc: HO.MAMMO Attending Dr: Renetta Pedro MD Ordering Physician: Renetta Gómez MDResults: 1Negative Date of Service: 05/12/24Follow Up: 1 Year From Orig inal Mammogram Procedure(s): MM tomosynthesis screening BI Accession Number(s): [id number] cc: Renetta Gómez MD EXAMINATION: MM SCREENING [...] signed by Beth Milian DO in OV> 06/02/242236 DD/ 1015 TD/TT: 05/12/24 1030 Human Resources Consultant: us Renetta Pedro MD IMG BI PROCEDURES Nael aftab Result - Final * HIV Ab/Ag ([facility]) (07/02/2023 8:37 AM EDT) HIV AB/AG Nonreactive Nonreactive [facility] Comment:HIV-1 p24 Ag and/or HIV-1/HIV-2 Ab not detected.A test result that is nonreactive does not exclude thepossibility of exposure to or infection with HIV-1 and/orHIV-2. Nonreactive results in this assay for individualswith prior exposure to HIV-1 and/or HIV-2 may be due toantigen and antibody levels that are below the limit ofdetection of this assay.The [facility] HIV Ag/Ab Combo assay result andsupplemental assay results should be interpreted inconjunction with the patient's clinical presentation,history and other laboratory results. If the results areinconsistent with clinical evidence, additional testing issuggested to confirm the result. 07/02/2023 8:37 AM EDT 07/02/2023 11:24 AM EDT us Renetta Pedro MD LAB BLOOD ORDERABLES Final Result [facility] [address] [place] [phone] * Hm Colonoscopy (09/15/2022) Pathologist [facility] Colonoscopy Normal Normal Narrative Celia Centeno - [...] ORDERABLE LABS Final Result Performing Organization Address City/[facility]/ZIP Co de Phone Number CONVERTED LEGACY LABS * HPV DNA, HIGH RISK, CERVICAL (05/08/2020 3:09 PM EDT) HPV DNA, HIGH RISK, CERVICAL Not Detected NOT DETECTED [facility] Comment: Not Detected High Risk HPV types (16,18,31,33,35,39,45,51,52, 56,58,59,66,68) were not detected. Other HPV types which cause anogenital lesions may be present. The significance of the other types of HPV in malignant processes has not been established. Methodology: Real Time PCR 05/08/2020 3:09 PM EDT Renetta Pedro MD HISTORICAL/NON ORDERA BLE LABS Final Result Performing Organization Address [facility] de Phone Number [facility] [address] * THINPREP TIS PAP (05/08/2020 3:09 PM EDT) Clinical Information: SEE COMMENT [facility] Comment:None given COMMENT SEE COMMENT [...] has been evaluated with computer assisted technology. Bull Riveter: SEE COMMENT [facility] Comment: LT, CT(ASCP) CT screening location: [address] [address] Infection SEE COMMENT [facility] [...] MD LAB PATHOLOGY ORDERAB LES Final Result [facility] [address] from Last 3 Months or Most Recently Relevant to Health Maintenance Insurance * Guarantor: Renata Gusman Account Type Relation to Patient Date of Phone Billing Address Personal/Family Self [address] [place] [address] [facility] C[facility] * Guarantor: Renata Gusman Account Type Relation to Patient Date of Phone Billing Address Personal/Family Self [address] [place] [address] * Guarantor: Renata Gusman Account Type Relation to Patient Date of Phone Billing Address Personal/Family Self [address] [place] [address] * Guarantor: Renata Gusman Account Type Relation to Patient Date of Phone Billing Address Personal/Family Self [address] [place] [address] Care Teams Creasing And Cutting Press Feeder Relationship Specialty Start Date End Date Renetta Gómez MD [address] [place] [address] PCP - General Family Medicine 12/29/18
--- OUTSIDE RECORDS SUMMARY | 2025-05-22 10:46 | XMS_ITS | Encounter Summary ---
Author Organization [employer] Address [address] [facility] 7t [place] [address] Care Team Providers Care Shaft Mechanic Name Role Phone Renetta Gómez MD Primary Care Provide r Reason for Visit * Reason Onset Date Comments PT1 05/24/2024 Encounter Details Date Type Department Care Team ([facility] st Contact Info) Description 05/24/2024 Telephone [facility] MEDICINE [address] [place], [place] [phone] Renetta Gómez MD [address] [place] [address] PT1 Social History Tobacco Use Types Packs/Day [...] facility name: Ed Cowart DPM Facility Address: [address] [place] [address] Escort needed: Y/N: Yes Do you have a wheelchair: Y/N: No If yes- Manual or electric: Visits: 4-5 visits a year documented in this encounter Plan of Treatment Upcoming Encounters Date Type Department Care Team (Late st Contact Info) Description 07/25/2025 2:00 PM EST Office Visit [facility] MEDICINE [address] [place] [address] Renetta Gómez MD [address] [place] [address] 10/12/2025 1:30 PM EST Office Visit [facility] OPTOMETRY [address] [place] [address] Rj, Betina, OD [address] [place] [address] documented as of this encounter Visit Diagnoses Not on filedocumented in this encounter Additional Health Concerns Assessment Noted Time PHQ-9 Depression Total Score: 0 04/06/20 23 10:11 AM EDT documented as of this encounter Care Teams Shaft Mechanic Relationship Specialty Start Date End Date Renetta Gómez MD [address] [place] [address] PCP - General Family Medicine 12/29/18 documented as of this encounter
--- OUTSIDE RECORDS SUMMARY | 2025-05-22 10:46 | XMS_ITS | Encounter Summary ---
Author Organization [employer] Address [address] [facility] 7t [place] [address] Care Team Providers Care Race Board Attendant Name Role Phone Renetta Gómez MD Primary Care Provide r Reason for Visit * Reason Comments Med Refill Encounter Details Date Type Department Care Team (Late st Contact Info) Description 07/29/2024 Refill [facility] MEDICINE [address] [place], [place] [phone] Renetta Gómez MD [address] [place] [address] Pruritus Social History Tobacco Use Types Packs/Day [...] t he electric, gas, oil or water [employer] threatened to shut off services in your [...] Description 07/25/2025 2:00 PM EST Office Visit [facility] MEDICINE [address] [place] [address] Renetta Gómez MD [address] [place] [address] 10/12/2025 1:30 PM EST Office Visit [facility] OPTOMETRY [address] [place] [address] Rj, Betina, OD [address] [place] [address] documented as of this encounter Visit Diagnoses Diagnosis Pruritus Unspecified pruritic disorder documented in this encounter Additional Health Concerns Assessment Noted Time PHQ-9 Depression Total Score: 0 04/06/20 23 10:11 AM EDT documented as of this encounter Care Teams Race Board Attendant Relationship Specialty Start Date End Date Renetta Gómez MD [address] [place] [phone] PCP - General Family Medicine 12/29/18 documented as of this encounter
--- OUTSIDE RECORDS SUMMARY | 2025-05-22 10:46 | XMS_ITS | Encounter Summary ---
Author Organization [employer] Address [address] [facility] 7t [place] [address] Care Team Providers Care Cooling Machine Operator Name Role Phone Renetta Gómez MD Primary Care Provide r Reason for Visit * Reason Onset Date Comments PT1 03/21/2024 Encounter Details Date Type Department Care Team ([facility] st Contact Info) Description 03/21/2024 Telephone [facility] MEDICINE [address] [place], [place] [phone] Renetta Gómez MD [address] [place] [address] PT1 Social History Tobacco Use Types Packs/Day [...] facility name: Dr.Allison Bennett Facility Address: [address] [place], [place] Escort needed: Y/N: Yes Do you have a wheelchair: no If yes- Manual or electric: no Visits: 4 Patient calling requesting PT1 Home Address verified: Y/N: Yes Provider name or facility name: Dr.Corina Leon Facility Address: [address] [place], [place] Escort needed: Y/N: Yes Do you have a wheelchair: Y/N: No If yes- Manual or electric: no Visits: 4 Patient calling requesting PT1 Home Address verified: Y/N: Yes Provider name or facility name: Dr. Ele Esparza Facility Address: [address] [place], [place] Escort needed: Y/N: Yes Do you have a wheelchair: Y/N: No If yes- Manual or electric: no Visits: 4 Patient calling requesting PT1 Home Address verified: Y/N: No Provider name or facility name: Dr. Margie Hugo Facility Address: [address] [place], [place] Escort needed: Y/N: Yes Do you have a wheelchair: Y/N: No If yes- Manual or electric: no Visits: 4 * Telephone Encounter - Emily Rodriguez - 03/21/2024 12:28 PM EDT Patient calling requesting PT1 Home Address verified: Y/N: Yes [facility] Facility Address: [address] [facility] Y/N: Yes Do you have a wheelchair: Y/N: No If yes- Manual or electric: NO Visits: ALL FUTURE APPTS documented in this encounter Plan of Treatment Upcoming Encounters Date Type Department Care Team (Late st Contact Info) Description 07/25/2025 2:00 PM EST Office Visit [facility] MEDICINE [address] [place] [address] Renetta Gómez MD [address] [place] [address] 10/12/2025 1:30 PM EST Office Visit [facility] OPTOMETRY [address] [place] [address] Rj, Betina, OD [address] [place] [address] documented as of this encounter Visit Diagnoses Not on filedocumented in this encounter Additional Health Concerns Assessment Noted Time PHQ-9 Depression Total Score: 0 04/06/20 23 10:11 AM EDT documented as of this encounter Care Teams Cooling Machine Operator Relationship Specialty Start Date End Date Renetta Gómez MD [address] [place] [address] PCP - General Family Medicine 12/29/18 documented as of this encounter
--- OUTSIDE RECORDS SUMMARY | 2025-05-22 10:46 | XMS_ITS | Encounter Summary ---
Author Organization [employer] Address [address] [facility] 7t [place] [address] Care Team Providers Care Needle Leader Name Role Phone Renetta Gómez MD Primary Care Provide r Encounter Details Date Type Department Care Team (Late st Contact Info) Description 12/02/2022 Orders Only [facility] MED & PEDS [address] [place] [address] Lizbeth Navarro LPN Social History Tobacco Use [...] Description 07/25/2025 2:00 PM EST Office Visit [facility] MEDICINE [address] [place] [address] Renetta Gómez MD [address] [place] [address] 10/12/2025 1:30 PM EST Office Visit [facility] OPTOMETRY [address] [place] [address] Betina De La Rosa, OD [address] [place] [address] documented as of this encounter Visit Diagnoses Not on filedocumented in this encounter Care Teams Needle Leader Relationship Specialty Start Date End Date Renetta Gómez MD [address] [place] [address] PCP - General Family Medicine 12/29/18 documented as of this encounter
--- OUTSIDE RECORDS SUMMARY | 2025-05-22 10:46 | XMS_ITS | Encounter Summary ---
Author Organization [employer] Address [address] [place] [address] [address]t [place] [address] Care Team Providers Care Belt Knife Feeder Name Role Phone Renetta Gómez MD Primary Care Provide r Reason for Visit * Reason Comments Med Refill Encounter Details Date Type Department Care Team (Late Contact Info) Description 03/24/2023 Refill [facility] MEDICINE [address] [place] [address] Roxana Quinonez MD [address] [place] [address] Social History Tobacco Use Types Packs/Day Years [...] Description 07/25/2025 2:00 PM EST Office Visit [facility] MEDICINE [address] [place] [address] Renetta Gómez MD [address] [place] [address] 10/12/2025 1:30 PM EST Office Visit [facility] OPTOMETRY [address] [place] [address] Betina De La Rosa, OD [address] [place] [address] documented as of this encounter Visit Diagnoses Not on filedocumented in this encounter Care Teams Belt Knife Feeder Relationship Specialty Start Date End Date Renetta Gómez MD [address] [place] [address] PCP - General Family Medicine 12/29/18 documented as of this encounter
== END 2025-05-22 09:22 | disposition home or self-care (01) ==
LOC: HO.MAMMO 09:21
PROVIDERS: PCP Internal Medicine; Visit Provider Internal Medicine
DX: Z12.31 Encounter for screening mammogram for malignant neoplasm of breast (principal)
CPT/HCPCS: 77063; 77067

== ENCOUNTER → 2025-05-22 10:30 | Outpatient (BNV) | payer MEDICAID, SELFPAY | PROVIDERS: PCP Internal Medicine; Visit Provider Internal Medicine | DX: Z12.31 Encounter for screening mammogram for malignant neoplasm of breast (principal) | CPT/HCPCS: 77063; 77067 ==

== ENCOUNTER 2025-07-09 08:02 | Outpatient (REF) | payer MEDICAID, SELFPAY ==
--- OUTSIDE RECORDS SUMMARY | 2025-07-09 08:06 | XMS_ITS | Encounter Summary ---
Author Organization [employer] Address [address] [facility] [address]t [place] [address] Care Team Providers Care Customer Care Manager Name Role Phone Renetta Gómez MD Primary Care Provide r Reason for Visit * Reason Comments Med Refill Encounter Details Date Type Department Care Team (Late st Contact Info) Description 09/25/2023 Refill [facility] [address] [place], [place] [phone] Renetta Gómez MD [address] [place], [place] [phone] Hypothyroidism, unspecified type Social History Tobacco Use [...] Description 07/25/2025 2:00 PM EST Office Visit [facility] MEDICINE [address] [place] [address] Renetta Gómez MD [address] [place] [address] 10/12/2025 1:30 PM EST Office Visit [facility] OPTOMETRY [address] [place] [address] Rj, Betina, OD [address] [place] [address] documented as of this encounter Visit Diagnoses Diagnosis Hypothyroidism, unspecified type documented in this encounter Additional Health Concerns Assessment Noted Time PHQ-9 Depression Total Score: 0 04/06/20 23 10:11 AM EDT documented as of this encounter Care Teams Customer Care Manager Relationship Specialty Start Date End Date Renetta Gómez MD [address] [place] [address] PCP - General Family Medicine 12/29/18 Manuel Suazo Felled Seam Operator ChainstitchFingerprinter 06/13/25 documented as of this encounter
--- OUTSIDE RECORDS SUMMARY | 2025-07-09 08:07 | XMS_ITS | Encounter Summary ---
Author Organization [employer] Address [address] [place] [address] 7t [place] [address] Care Team Providers Care Creping Machine Operator Helper Name Role Phone Renetta Gómez MD Primary Care Provide r Reason for Visit * Reason Comments Med Refill Encounter Details Date Type Department Care Team (Late Contact Info) Description 12/02/2022 Refill [facility] CHC MED & PEDS [address] [place], [place] [phone] Fannie Ceron MD [address] [place] [address] Type 2 diabetes mellitus without complication, unspecified whether exterminator insulin use ([facility]) Social History Tobacco Use Types Packs/Day Years [...] Description 07/25/2025 2:00 PM EST Office Visit [facility] MEDICINE 230 [place] [address] Renetta Gómez MD [address] [place] [address] 10/12/2025 1:30 PM EST Office Visit [facility] OPTOMETRY [address] [place], [place] [phone] Betina De La Rosa, OD [address] [place] [address] documented as of this encounter Visit Diagnoses Diagnosis Type 2 diabetes mellitus without complication, unspecified whether exterminator insulin use documented in this encounter Care Teams Creping Machine Operator Helper Relationship Specialty Start Date End Date Renetta Gómez MD 230 [place] [address] PCP - General Family Medicine 12/29/18 Manuel Suazo Retail Performance SpecialistNear East Archeology Professor 06/13/25 documented as of this encounter
--- OUTSIDE RECORDS SUMMARY | 2025-07-09 08:07 | XMS_ITS | Encounter Summary ---
Author Organization [employer] Address [address] [place] [address] 7t [place] [address] Care Team Providers Care Maple Sugar Maker Name Role Phone Renetta Gómez MD Primary Care Provide r Reason for Visit * Reason Comments Med Refill Encounter Details Date Type Department Care Team (Late st Contact Info) Description 06/16/2023 Refill [facility] 230 [place], [place] [phone] Roxana Quinonez MD [address] [place] [address] [phone] Social History Tobacco Use Types Packs/Day Years [...] Description 07/25/2025 2:00 PM EST Office Visit [facility] [address] [place], [place] [phone] Renetta Gómez MD 230 [place], [place] [phone] 10/12/2025 1:30 PM EST Office Visit [facility] OPTOMETRY [address] [place], [place] [phone] Betina De La Rosa, OD 230 [place], [place] [phone] documented as of this encounter Visit Diagnoses Not on filedocumented in this encounter Additional Health Concerns Assessment Noted Time PHQ-9 Depression Total Score: 0 04/06/20 23 10:11 AM EDT documented as of this encounter Care Teams Maple Sugar Maker Relationship Specialty Start Date End Date Renetta Gómez MD 230 [place], [place] [phone] PCP - General Family Medicine 12/29/18 Manuel Suazo Health Care ManagerHris Analyst 06/13/25 documented as of this encounter
--- OUTSIDE RECORDS SUMMARY | 2025-07-09 08:07 | XMS_ITS | Encounter Summary ---
Author Organization [employer] Address [address] [place] [address] 7t [place] [address] Care Team Providers Care Senior Service Aide Name Role Phone Renetta Gómez MD Primary Care Provide r Reason for Visit * Reason Comments Med Refill Encounter Details Date Type Department Care Team (Late Contact Info) Description 03/24/2023 Refill [facility]INE [address] [place] [address] Roxana Quinonez MD 230 [place] [address] Social History Tobacco Use Types Packs/Day Years [...] Description 07/25/2025 2:00 PM EST Office Visit [facility] MEDICINE [address] [place] [address] Renetta Gómez MD 230 [place] [address] 10/12/2025 1:30 PM EST Office Visit [facility] OPTOMETRY [address] [place] [address] Betina De La Rosa, OD 230 [place] [address] documented as of this encounter Visit Diagnoses Not on filedocumented in this encounter Care Teams Senior Service Aide Relationship Specialty Start Date End Date Renetta Gómez MD 230 [place] [address] PCP - General Family Medicine 12/29/18 Manuel Suazo Skewer UpProbation Manager 06/13/25 documented as of this encounter
--- OUTSIDE RECORDS SUMMARY | 2025-07-09 08:07 | XMS_ITS | Encounter Summary ---
Author Organization [employer] Address [address] [facility] 7t [place] [address] Care Team Providers Care Roughener Name Role Phone Renetta Gómez MD Primary Care Provide r Reason for Visit * Reason Onset Date Comments PT-1 11/08/2024 Encounter Details Date Type Department Care Team ([facility] st Contact Info) Description 11/08/2024 Telephone [facility] MEDICINE 230 [place], [place] [phone] Renetta Gómez MD 230 [place] [address] PT-1 Social History Tobacco Use Types Packs/Day [...] Y/N: Yes Provider name or facility name: [address] [place] [address] Dr. Wolfe 203 Escort needed: Y/N: No Do you have a wheelchair: Y/N: No If yes- Manual or electric: Visits: (4) ( monthly) documented in this encounter Plan of Treatment Upcoming Encounters Date Type Department Care Team (Late st Contact Info) Description 07/25/2025 2:00 PM EST Office Visit [facility] MEDICINE 230 [place] [address] Renetta Gómez MD [address] [place] [address] 10/12/2025 1:30 PM EST Office Visit [facility] OPTOMETRY [address] [place] [address] Betina De La Rosa OD 230 [place] [address] documented as of this encounter Visit Diagnoses Not on filedocumented in this encounter Additional Health Concerns Assessment Noted Time PHQ-9 Depression Total Score: 0 04/06/20 10:11 AM EDT documented as of this encounter Care Teams Roughener Relationship Specialty Start Date End Date Renetta Gómez MD [address] [place] [address] PCP - General Family Medicine 12/29/18 Manuel Suazo Embedded Firmware DeveloperShoe Stock Associate 06/13/25 documented as of this encounter
--- OUTSIDE RECORDS SUMMARY | 2025-07-09 08:07 | XMS_ITS | Encounter Summary ---
Author Organization [employer] Address [address] [facility] 7t [place] [address] Care Team Providers Care Customer Project Manager Name Role Phone Renetta Gómez MD Primary Care Provide r Encounter Details Date Type Department Care Team (Late st Contact Info) Description 12/02/2022 Orders Only [facility] CHC MED & PEDS [address] [place] [address] Lizbeth Navarro LPN Social History Tobacco Use [...] Description 07/25/2025 2:00 PM EST Office Visit [facility] MEDICINE 230 [place] [address] Renetta Gómez MD 230 [place] [address] 10/12/2025 1:30 PM EST Office Visit [facility] OPTOMETRY [address] [place] [address] Betina D eLa Rosa, OD 230 [place] [address] documented as of this encounter Visit Diagnoses Not on filedocumented in this encounter Care Teams Customer Project Manager Relationship Specialty Start Date End Date Renetta Gómez MD 230 [place] [address] PCP - General Family Medicine 12/29/18 Manuel Suazo Mail Machine OperatorWastewater Treatment Engineer 06/13/25 documented as of this encounter
--- OUTSIDE RECORDS SUMMARY | 2025-07-09 08:07 | XMS_ITS | Encounter Summary ---
Author Organization [employer] Address [address] [facility] 7t [place] [address] Care Team Providers Care Vacuum Frame Operator Name Role Phone Renetta Gómez MD Primary Care Provide r Encounter Details Date Type Department Care Team (Late Contact Info) Description 06/16/2023 Orders Only [facility] CHC MED & PEDS [address] [place], [place] [phone] Lizbeth Navarro LPN Social History Tobacco Use [...] 2:00 PM EST Office Visit [facility] MEDICINE 230 [place], [place] [phone] Renetta Gómez MD 230 [place], [place] [phone] 10/12/2025 1:30 PM EST Office Visit [facility] OPTOMETRY [address] [place], [place] [phone] Betina De La Rosa, OD 230 [place], [place] [phone] documented as of this encounter Visit Diagnoses Not on filedocumented in this encounter Additional Health Concerns Assessment Noted Time PHQ-9 Depression Total Score: 0 04/06/20 23 10:11 AM EDT documented as of this encounter Care Teams Vacuum Frame Operator Relationship Specialty Start Date End Date Renetta Gómez MD 230 [facility] [place] [address] PCP - General Family Medicine 12/29/18 Manuel Suazo Head Of MusicFlight Operations Manager 06/13/25 documented as of this encounter
--- OUTSIDE RECORDS SUMMARY | 2025-07-09 08:07 | XMS_ITS | Encounter Summary ---
Author Organization [email or web address] Address [address] [facility] 7t [place] [address] Care Team Providers Care Bolt Header Name Role Phone Renetta Gómez MD Primary Care Provide r Reason for Visit * Reason Onset Date Comments PT1 05/24/2024 Encounter Details Date Type Department Care Team ([facility] st Contact Info) Description 05/24/2024 Telephone [facility] MEDICINE 230 [place], [place] [phone] Renetta Gómez MD 230 [place] [address] PT1 Social History Tobacco Use Types Packs/Day [...] facility name: Ed Cowart DPM Facility Address: [address] [place] [address] Escort needed: Y/N: Yes Do you have a wheelchair: Y/N: No If yes- Manual or electric: Visits: 4-5 visits a year documented in this encounter Plan of Treatment Upcoming Encounters Date Type Department Care Team (Late st Contact Info) Description 07/25/2025 2:00 PM EST Office Visit [facility] MEDICINE 230 [place] [address] Renetta Gómez MD [address] [place] [address] 10/12/2025 1:30 PM EST Office Visit [facility] OPTOMETRY [address] [place] [address] Rj, Betina, OD 230 [place] [address] documented as of this encounter Visit Diagnoses Not on filedocumented in this encounter Additional Health Concerns Assessment Noted Time PHQ-9 Depression Total Score: 0 04/06/20 23 10:11 AM EDT documented as of this encounter Care Teams Bolt Header Relationship Specialty Start Date End Date Renetta Gómez MD 230 [place] [address] PCP - General Family Medicine 12/29/18 Manuel Suazo Hull DrafterWelding Systems And Equipment Repairer 06/13/25 documented as of this encounter
--- OUTSIDE RECORDS SUMMARY | 2025-07-09 08:07 | XMS_ITS | Encounter Summary ---
Author Organization [employer] Address [address] [facility] 7t [place] [address] Care Team Providers Care Book Cutter Name Role Phone Renetta Gómez MD Primary Care Provide r Reason for Visit * Reason Onset Date Comments PT1 03/21/2024 Encounter Details Date Type Department Care Team ([facility] st Contact Info) Description 03/21/2024 Telephone [facility] MEDICINE [address] [place], [place] [phone] Renetta Gómez MD 230 [place] [address] PT1 Social History Tobacco Use Types Packs/Day [...] facility name: Dr.Allison Bennett Facility Address: [address] [place], [place] Escort needed: Y/N: Yes Do you have a wheelchair: no If yes- Manual or electric: no Visits: 4 Patient calling requesting PT1 Home Address verified: Y/N: Yes Provider name or facility name: Dr.Corina Leon Facility Address: [address] [place], [place] Escort needed: Y/N: Yes Do you have a wheelchair: Y/N: No If yes- Manual or electric: no Visits: 4 Patient calling requesting PT1 Home Address verified: Y/N: Yes Provider name or facility name: Dr. Ele Esparza Facility Address: [address] [place], [place] Escort needed: Y/N: Yes Do you have a wheelchair: Y/N: No If yes- Manual or electric: no Visits: 4 Patient calling requesting PT1 Home Address verified: Y/N: No Provider name or facility name: Dr. Margie Hugo Facility Address: [address] [place], [place] Escort needed: Y/N: Yes Do you have a wheelchair: Y/N: No If yes- Manual or electric: no Visits: 4 * Telephone Encounter - Emily Rodriguez - 03/21/2024 12:28 PM EDT Patient calling requesting PT1 Home Address verified: Y/N: Yes Provider name or facility name: [facility] Facility Address: [address] [facility] needed: Y/N: Yes Do you have a wheelchair: Y/N: No If yes- Manual or electric: NO Visits: ALL FUTURE APPTS documented in this encounter Plan of Treatment Upcoming Encounters Date Type Department Care Team (Late st Contact Info) Description 07/25/2025 2:00 PM EST Office Visit [facility] MEDICINE 230 [place] [address] Renetta Gómez MD [address] [place] [address] 10/12/2025 1:30 PM EST Office Visit [facility] OPTOMETRY [address] [place] [address] Rj, Betina, OD 230 [place] [address] documented as of this encounter Visit Diagnoses Not on filedocumented in this encounter Additional Health Concerns Assessment Noted Time PHQ-9 Depression Total Score: 0 04/06/20 23 10:11 AM EDT documented as of this encounter Care Teams Book Cutter Relationship Specialty Start Date End Date Renetta Gómez MD 230 [place] [address] PCP - General Family Medicine 12/29/18 Manuel Suazo Pharmacy Innovation AssistantEmployment Supervisor 06/13/25 documented as of this encounter
--- OUTSIDE RECORDS SUMMARY | 2025-07-09 08:07 | XMS_ITS | Encounter Summary ---
Author Organization [employer] Address [address] [facility] 7t [place] [address] Care Team Providers Care Exterminator Helper Name Role Phone Renetta Gómez MD Primary Care Provide r Reason for Visit * Reason Onset Date Comments pt1 06/21/2025 Encounter Details Date Type Department Care Team ([facility] st Contact Info) Description 06/21/2025 Telephone [facility] MEDICINE 230 [place], [place] [phone] Renetta Gómez MD 230 [place] [address] pt1 Social History Tobacco Use Types Packs/Day Years [...] encounter Miscellaneous Notes * Telephone Encounter - Areli Londono - 06/21/2025 12:47 PM EDT Patient calling requesting PT1 Home Address verified: Y/N: Yes Provider name or facility name: [facility] [address] [place] [address] Escort needed: Y/N: Yes Do you have a wheelchair: Y/N: No If yes- Manual or electric: \ Visits: 4x a year documented in this encounter Plan of Treatment Upcoming Encounters Date Type Department Care Team (Late st Contact Info) Description 07/25/2025 2:00 PM EST Office Visit [facility] MEDICINE [address] [place] [address] Renetta Gómez MD [address] [place] [address] 10/12/2025 1:30 PM EST Office Visit [facility] OPTOMETRY [address] [place] [address] Rj, Betina, OD 230 [place] [address] documented as of this encounter Visit Diagnoses Not on filedocumented in this encounter Additional Health Concerns Assessment Noted Time PHQ-9 Depression Total Score: 0 04/16/20 25 12:12 PM EDT documented as of this encounter Care Teams Exterminator Helper Relationship Specialty Start Date End Date Renetta Gómez MD 230 [place] [address] PCP - General Family Medicine 12/29/18 Manuel Suazo Administrative InternOil Rag Washer 06/13/25 documented as of this encounter
--- OUTSIDE RECORDS SUMMARY | 2025-07-09 08:07 | XMS_ITS | Encounter Summary ---
Author Organization [employer] Address [address] [facility] 7t [place] [address] Care Team Providers Care Gas Maker Name Role Phone Renetta Gómez MD Primary Care Provide r Encounter Details Date Type Department Care Team (Late st Contact Info) Description 11/10/2022 Orders Only [facility] CHC MED & PEDS [address] [place] [address] Lizbeth Navarro LPN Social History Tobacco Use [...] Description 07/25/2025 2:00 PM EST Office Visit [facility] MEDICINE 230 [place] [address] Renetta Gómez MD 230 [place] [address] 10/12/2025 1:30 PM EST Office Visit [facility] OPTOMETRY [address] [place] [address] Betina De La Rosa, OD 230 [place] [address] documented as of this encounter Visit Diagnoses Not on filedocumented in this encounter Care Teams Gas Maker Relationship Specialty Start Date End Date Renetta Gómez MD [address] [place] [address] PCP - General Family Medicine 12/29/18 Manuel Suazo Bistro AttendantDrafter Detail 06/13/25 documented as of this encounter
--- OUTSIDE RECORDS SUMMARY | 2025-07-09 08:08 | XMS_ITS | Clinical Summary ---
Author Organization [employer] Address [address] [facility] 7t [place] [address] Care Team Providers Care Drama Professor Name Role Phone Renetta Gómez MD Primary Care Provide r Allergies Active Allergy Reactions Criticality Noted Date Comments Acetaminophen 12/29/2018 Other reaction(s): Hives / Skin Rash Codeine 12/29/2018 Other reaction(s): Hives / Skin Rash Shellfish Allergy Angioedema High 12/09/2023 Can eat clams and fish Medications FREESTYLE LITE test stripIndications:T ype 2 diabetes mellitus without complication, unspecified whether intermediate manager insulin use USE TO TEST FINGER STICK BLOOD SUGAR two (2) times a day 100 strip 1 12/03/19 23 Active escitalopram (Lexapro) 20 MG tablet Take 20 mg by mouth in the morning. 06/23/20 23 Active traZODone (Desyrel) 150 MG tablet Take 150 mg by mouth at bedtime. 06/11/20 23 Active Continuous Blood Gluc Building Coordinator (FreeStyle Oren 2 [place]) deviceIndications: Type 2 diabetes mellitus with hyperglycemia, with long-term current use of insulin ([facility]) Scan sensor every 8 hours 1 each 07/01/20 23 Active Continuous Blood Gluc Sensor (FreeStyle Oren 2 Sensor) miscIndications:Ty pe 2 diabetes mellitus with hyperglycemia, with long-term current use of insulin ([facility]) Apply 1 sensor every 14 days 2 each 07/01/20 23 Active Trulicity 4.5 MG/0.5ML solution pen-injectorIndica tions:Type 2 diabetes mellitus with hyperglycemia ([facility]) INJECT 4.5 mg SUBCUTANEOUSLY EVERY [...] 02/29/20 24 Active traZODone (Desyrel) 100 MG tabletIndications: Primary [...] injectionIndicatio ns:Type 2 diabetes mellitus with hyperglycemia (HCC) INJECT 74 UNITS SUBCUTANEOUSLY ONCE DAILY 18 mL 3 08/07/20 24 Active pioglitazone (Actos) 15 MG tabletIndications: Type 2 diabetes mellitus with diabetic polyneuropathy (HCC) Take 1 tablet (15 mg) by mouth Once per day. 90 tablet 3 08/07/20 24 Active hydrOXYzine HCl (Atarax) 25 MG tabletIndications: Pruritus Take 1 tablet (25 mg) by mouth 2 times daily. 60 tablet 2 04/16/20 25 Active omeprazole (PriLOSEC) [address] capsuleIndications :Gastroesophageal reflux disease, unspecified whether esophagitis present Take 1 capsule (40 mg) by mouth before breakfast. Do not crush or chew. 90 capsule 1 04/16/20 25 Active levothyroxine (Synthroid, Levoxyl) 25 MCG tabletIndications: Hypothyroidism, unspecified type Take 1 tablet (25 mcg) by mouth before breakfast. 90 tablet 3 04/16/20 25 Active albuterol 108 (90 Base) MCG/ACT inhalerIndications :Mild intermittent asthma without complication Inhale 2 puffs every 6 (six) hours if needed for wheezing. 18 g 11 04/16/20 25 026 Active atorvastatin (Lipitor) 20 MG tabletIndications: Type 2 diabetes mellitus with hyperglycemia, with long-term current use of insulin (HCC) Take 1 tablet (20 mg) by mouth [...] 2MG SUBCUTANEOUSLY EACH WEEK 04/10/20 25 Active Active Problems Problem Noted Date [...] up: with endocrinology as scheduled Fibromyalgia 06/30/2024 detention current use of insulin (CMS/HCC) 06/30 Liver cirrhosis 06/30/2024 Assessment & Plan (04/16/2025 4:49 PM EDT): Continue to follow with GI Hyperlipidemia 06/30/2024 Elevated liver enzymes 06/30/2024 Dupuytren's disease of palm of left hand 024 Dupuytren's contracture of right hand 06/30/2024 Cubital tunnel syndrome on right 06/30/2024 Constipation 06/30/2024 Chronic kidney disease, stage 3 (CMS/HCC) 2023 Arthritis of left glenohumeral joint 06/30/2024 Acute [...] Encounters Date Type Department Care Team Description 06/21/2025 Patient Outreach [facility] [address] [place] [address] Renetta Gómez MD Care Coordination (CHW outreach for SDOH PT-1 and food needs-referral completed /) 06/21/2025 Telephone [facility] [address] [place] [address] Renetta Gómez MD pt1 06/13/2025 Telephone [facility] MED & PEDS [address] [place], [place] [phone] Renetta Gómez MD Care Coordination (ICP Care Plan) 05/25/2025 Outside Procedure [facility] OPTOMETRY [address] [place] [address] Betina De La Rosa, OD Presbyopia (Primary Dx) 05/10/2025 10:00 AM EDT Office Visit [facility] OPTOMETRY [address] [place] [address] Betina De La Rosa, OD Regular astigmatism of left eye (Primary Dx) 05/09/2025 Orders Only GENERIC EXTERNAL DATA DEPARTMENT Provider, Generic External Data 04/16/2025 11:15 AM EDT Office Visit [facility] [address] [place] [address] Renetta Gómez MD Type 2 diabetes mellitus with hyperglycemia, with long-term current use of insulin (CMS/HCC) (Primary Dx); Cirrhosis of liver without ascites, unspecified hepatic cirrhosis type (CMS/HCC); Dietary counseling; Exercise counseling; Chronic right shoulder pain; Pruritus; Gastroesophageal reflux disease, unspecified whether esophagitis present; Hypothyroidism, unspecified type; Mild intermittent asthma without complication 04/16/2025 Travel 04/10/2025 2:00 PM EDT Office Visit [facility] OPTOMETRY [address] [place] [address] Rj, Betina, OD 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 2 diabetes mellitus (CMS/HCC) (Primary Dx); Age-related nuclear cataract of both eyes; Dry eyes; Presbyopia 04/10/2025 Travel 04/10/2025 Telephone [facility] [address] [place] [address] Renetta Gómez MD No Show 04/09/2025 Telephone [facility] [address] [place] [address] Renetta Gómez MD Chart Prep from Last 3 Months Immunizations Immunization Administration [...] Description 07/25/2025 2:00 PM EST Office Visit [facility] [address] [place] [address] Renetta Gómez MD [address] [place] [address] 10/12/2025 1:30 PM EST Office Visit [facility] OPTOMETRY [address] [place] [address] Betina De La Rosa, OD [address] [place] [address] Health Maintenance Due Date Last Done Comments CT Colonography 1970 FIT DNA/Cologuard 1970 FIT 1970 FOBT 1970 Sigmoidoscopy 1970 Diabetes: Foot Exam 1980 Cervical Cancer Screening 05/08/2025 HPV/Cotest 05/08/2025 05/08/2020, 02/10/2019 Pap Smear 05/08/2025 05/08/2020 COVID-19 Vaccine ( season) 2025 08/29/2021, 01/22/2021, 12/25/2020 Influenza Vaccine (#1) 2025 , 08/23/2023, 08/04/2022, [...] Screening 04/16/2026 04/16/2025 Tobacco Screening 04/26/2026 04/26/2025 Mammogram 05/22/2026 05/22/2025, 04/15, 05/04/2023, Additional history exists Colonoscopy 09/15/2027 09/15/2022 Colorectal Cancer Screening 09/15/2027 [...] Procedure Name Priority Date/Time Associated Diagnosis Comments BI MAMMOGRAM SCREENING TOMOSYNTHESIS BILATERAL Routine 05/22/2025 9:30 AM EDT GLUCOSE, WHOLE BLOOD Routine 05/09/2025 12:48 PM EDT POCT GLYCATED HEMOGLOBIN, TOTAL Routine 04/16/2025 11:42 AM EDT Type 2 diabetes mellitus with hyperglycemia, with long-term current use of insulin ([facility]/HCC) POCT GLUCOSE Routine 04/16/2025 11:41 AM EDT Type 2 diabetes mellitus with hyperglycemia, with long-term current use of insulin ([facility]) OCT, RETINA - OU - BOTH EYES Routine 04/10/2025 2:00 PM EDT 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 2 diabetes mellitus ([facility]) LIPID PANEL, STANDARD Routine 07/12/2024 10:54 AM EDT ALBUMIN, RANDOM URINE W/CREATININE Routine 07/12/2024 10:52 AM EDT HIV ANTIBODY/ANTIGEN ([place] [facility]) Routine 07/02/2023 8:37 AM EDT HM COLONOSCOPY Routine 09/15/2022 [facility] HISTORICAL HEPATITIS A,B,C PROFILE Routine 08/11/2022 11:00 AM EST [facility] HISTORICAL HPV DNA, HIGH RISK, CERVICAL Routine 05/08/2020 3:09 PM EDT THINPREP IMAGING SYSTEM PAP Routine 05/08/2020 3:09 PM EDT from Last 3 Months or Most Recently Relevant to Health Maintenance Results * BI Mammogram Screening Tomosynthesis Bilateral (05/22/2025 9:30 AM EDT) Anatomical Region Laterality Modality Breast Bilateral Mammography 05/22/2025 9:30 AM EDT Narrative 05/25/2025 5:34 PM EDT [facility] [address] [place], [place] [address] Mammography Report Signed Patient: Renata Gusman MR#: [id number] : 1970 Acct:[id number] Age/Sex: 55 / F ADM Date: 05/22/25 Loc: HOSlyMAMMO Attending Dr: Renetta Pedro MD Ordering Physician: Renetta Gómez MD Results: 1Negative Date of Service: 05/22/25 Follow Up: 1 Year From Orig inal Mammogram Procedure(s): MM tomosynthesis screening BI Accession Number(s): [id number] cc: Renetta Gómez MD Reason For Exam: SCREENING EXAMINATION: MM SCREENING DIGITAL BREAST TOMOSYNTHESIS, BILATERAL CLINICAL INFORMATION: Screening. Asymptomatic. COMPARISON: Mammography: Comparison is made with available priors TECHNIQUE: Digital breast mammography with tomosynthesis is performed in both the craniocaudal and mediolateral oblique views along with computer-aided detection (CAD). FINDINGS: There are scattered areas of fibroglandular [...] mammogram. Electronically signed by: Beth Milian DO 05/25/2025 05:31 PM EDT Dictated By: Beth Milian DO Signed By: <Electronically signed by Beth Milian DO in OV> 05/25/25 1731 DD/ 0930 TD/TT: 05/22/25 0950 Visual Supervisor: Procedure Note Donotuseinterpreter, Image - 05/25/2025 [facility] [address] [place] [address] [place], [place] [address] Mammography Report Signed Patient: Collin GusmanR#: [id number] : 1970Acct:[id number] Age/Sex: 55 / FADM Date: 05/22/25 Loc: HO.MAMMO Attending Dr: Renetta Pedro MD Ordering Physician: Renetta Gómez MDResults: 1Negative Date of Service: 05/22/25Follow Up: 1 Year From Orig ina Mammogram Procedure(s): MM tomosynthesis screening BI Accession Number(s): [id number] cc: Renetta Gómez MD Reason For Exam: SCREENING EXAMINATION: MM SCREENING DIGITAL BREAST TOMOSYNTHESIS, BILATERAL CLINICAL INFORMATION: Screening. Asymptomatic. COMPARISON: Mammography: Comparison is made with available priors TECHNIQUE: Digital breast mammography with tomosynthesis is performed in both the craniocaudal and mediolateral oblique views along with computer-aided detection (CAD). FINDINGS: There are scattered areas of fibroglandular [...] mammogram. Electronically signed by: Beth Milian DO 05/25/2025 05:31 PM EDT Dictated By: Beth Milian DO Signed By: <Electronically signed by Beth Milian DO in OV> 05/25/25 1731 DD/ 0930 TD/TT: 05/22/25 0950 Visual Supervisor: us Renetta Pedro MD IMG BI PROCEDURES Fin al Result * (ABNORMAL) Glucose, Whole Blood (05/09/2025 12:48 PM EDT) Glucose, Whole Blood 133(H) 60 - 115 mg/dL [facility] Comment:METER #: [id number] 0Testing performed in the Endocrinology Department [address] , [address], [facility]. 05/09/2025 12:4 8 PM EDT 05/09/2025 12:51 PM EDT Generic External Data Provider LAB BLOOD ORDERAB LES Final Result [facility] [address] [place] [address] [phone] * (ABNORMAL) POCT HGB A1C (04/16/2025 11:42 AM EDT) Hemoglobin A1C 6.0(A) 4.0 - 5.7 % QC Media Lot # [id number] Lot# Expiration Date 3115, Blood 04/16/2025 11:4 2 AM EDT Renetta Pedro MD POINT OF CARE TEST EN TER/EDIT ORDERABLES Final Result * POCT Glucose (04/16/2025 11:41 AM EDT) Glucose Blood, POC 123 60 - 200 mg/dL QC Media Lot # [id number] Lot# Expiration Date [id number] Blood Capillary blood specimen / Unknown 04/16/2025 [...] follow here in 6 months as well. Betina De La Rosa OD OPHTH TOMOGRAPHY Final Result * (ABNORMAL) Lipid Panel, Standard (07/12/2024 10:54 AM EDT) Triglycerides 170(H) <150 mg/dL [facility] Comment:Desirable Triglyceri de: less than 150 mg/dLBorderline High Triglyceride 150-199 mg/dLHigh Triglyceride: 200-499 mg/dLVery High Triglyceride: greater than or equal to 5OO mg/dL Cholesterol 179 <200 mg/dL [facility] Comment:Desirable Cholestero l: less than 200 mg/dLBorderline High Cholesterol: 200-239 mg/dLHigh Cholesterol: greater than 239 mg/dL LDL Cholesterol Calculated 109(H) <100 mg/dL [facility] Comment:Desirable LDL: less than 100 mg/dLNear Optimal/Above Optimal LDL: 110- 129 mg/dLBorderline High LDL: 130-159 mg/dLHigh LDL: 160-189 mg/dLVery High LDL: greater than or equal to 190 mg/dL HDL Cholesterol 36(L) >40 mg/dL [facility] Comment:Desirable HDL: great er than 40 mg/dL Note: This HDL assay may give artificially low results in patients with liver disease. 07/12/2024 10:5 4 AM EDT 07/12/2024 10:54 AM EDT us Generic External Data Provider LAB BLOOD ORDERAB LES Final Result [facility] [address] [place], [place] [phone] * Albumin, Random Urine W/Creatinine (07/12/2024 10:52 AM EDT) Creatinine, Urine 269.94 mg/dL [facility] Microalbumin Urine 33.0 mg/L [facility] Microalbum Creatinine Ratio Ur 12.2 <30 ug/mg cr [facility] Comment:Albumin/Creatinine R atio Reference Ranges: Normal: < 30 ug/mg creatinine Microalbuminuria: 30 - 300 ug/mg creatinineClinical Albuminuria: > 300 ug/mg creatinine 07/12/2024 10:5 2 AM EDT 07/12/2024 11:37 AM EDT us Generic External Data Provider LAB URINE ORDERAB LES Final Result Performing Organization Address [facility]/ZIP Co de Phone Number [facility] [address] [place] [address] [phone] * HIV Ab/Ag ([facility]) (07/02/2023 8:37 AM EDT) HIV AB/AG Nonreactive Nonreactive [facility] Comment:HIV-1 p24 Ag and/or HIV-1/HIV-2 Ab not detected.A test result that is nonreactive does not exclude thepossibility of exposure to or infection with HIV-1 and/orHIV-2. Nonreactive results in this assay for individualswith prior exposure to HIV-1 and/or HIV-2 may be due toantigen and antibody levels that are below the limit ofdetection of this assay.The [employer] HIV Ag/Ab Combo assay result andsupplemental assay results should be interpreted inconjunction with the patient's clinical presentation,history and other laboratory results. If the results areinconsistent with clinical evidence, additional testing issuggested to confirm the result. 07/02/2023 8:37 AM EDT 07/02/2023 11:24 AM EDT us Renetta Pedro MD LAB BLOOD ORDERABLES Final Result Performing Organization Address [facility]/ZIP Co de Phone Number [facility] [address] [place] [address] [phone] * Hm Colonoscopy (09/15/2022) Colonoscopy Normal [...] HIGH RISK, CERVICAL Not Detected NOT DETECTED [facility] Comment: Not Detected High Risk HPV types (16,18,31,33,35,39,45,51,52, 56,58,59,66,68) were not detected. Other HPV types which cause anogenital lesions may be present. The significance of the other types of HPV in malignant processes has not been established. Methodology: Real Time PCR 05/08/2020 3:09 PM EDT Renetta Pedro MD HISTORICAL/NON ORDERA BLE LABS Final Result [facility] [address] * THINPREP TIS PAP (05/08/2020 3:09 [...] has been evaluated with computer assisted technology. Final Inspector Balance Wheel: SEE COMMENT [facility] Comment: LT, CT(ASCP) CT screening location: [address] [address] Infection [facility] Comment: Shift in vaginal zeina suggestive of bacterial vaginosis. Interpretation/Resu lt: SEE COMMENT [facility] Comment:Negative for intraep ithelial lesion or malignancy. LMP: [facility] Comment:NONE GIVEN Prev. BX: NONE GIVEN [facility] Prev. PAP: SEE COMMENT [facility] Comment:NONE GIVEN SOURCE: SEE COMMENT [facility] Comment:None given Statement Of Adequacy: SEE COMMENT [facility] Comment: Satisfactory for evaluation. Endocervical/transformation zone component present. Age and/or menstrual status not provided 05/08/2020 3:09 PM EDT us Renetta Pedro MD LAB PATHOLOGY ORDERAB LES Final Result [facility] [address] from Last 3 Months or Most Recently Relevant to Health Maintenance Insurance [facility] C[facility] * Guarantor: Renata Gusman Account Type Relation to Patient Date of Phone Billing Address Personal/Family Self [address] [place] [address] * Guarantor: Renata Gusman Account Type Relation to Patient Date of Phone Billing Address Personal/Family Self [address] [place] [address] * Guarantor: Renata Gusman Account Type Relation to Patient Date of Phone Billing Address Personal/Family Self [address] [place] [address] Care Teams Drama Professor Relationship Specialty Start Date End Date Renetta Gómez MD [address] [place] [phone] PCP - General Family Medicine 12/29/18 Manuel Suazo BulkerSocial Service Agency Director 06/13/25
--- OUTSIDE RECORDS SUMMARY | 2025-07-09 08:08 | XMS_ITS | Clinical Summary ---
Author Organization [facility] Address [address] [place] [address] Phone Care Team Providers Care Conductor Pullman Name Role Phone Renetta Gómez MD Primary [...] pain 06/13/2024 T2DM (type 2 diabetes mellitus) ([facility] V24, CM S/[facility] V28) 06/13/2024 Encounters Date Type Department Care Team Description 04/18/2025 1:45 PM EDT Office Visit Orthopedic Surgery [facility] [address] [facility] [address] [place] [phone] Ed Cowart, DPM Dermatophytosis of nail (Primary Dx); Diabetic mononeuropathy simplex ([facility] V24, [facility] V28); Acquired hammer toe of right foot; Hammer toe of left foot; Type II diabetes mellitus with peripheral circulatory disorder ([facility] V24, [facility] V28) from Last 3 Months Social History [...] PM EST Office Visit Orthopedic Surgery - [place] [address] [phone] Ed Cowart, DPM [address] [phone] Health Maintenance Due Date Last Done Comments Breast Cancer Screening 1970 Colorectal Cancer Screening: Colonoscopy 1970 Diabetes: Annual GFR (Glomerular Filtration Rate) 1970 Diabetes: Annual Foot Exam 1980 Diabetes: Annual Retina Eye Exam 1980 Cervical Cancer Screening: Pap Smear 1991 RSV Immunization Adult Patients (1 - Risk 50-74 years 1-dose series) 2020 HIV Screening 10/07/2023 Hepatitis C Screening 10/07/2023 [...] topic Insurance MEDICAID - [place] Care Teams Conductor Pullman Relationship Specialty Start Date End Date Barciona Pedro, Eugenia, MD [address] [place] [phone] PCP - General 08/25/23
--- OUTSIDE RECORDS SUMMARY | 2025-07-09 08:08 | XMS_ITS | Encounter Summary ---
Author Organization [employer] Address [address] [facility] [address] [place] [address] Care Team Providers Care Dyeing Machine Tender Name Role Phone Renetta Gómez MD Primary Care Provide r Reason for Visit * Reason Comments Med Refill Encounter Details Date Type Department Care Team (Late st Contact Info) Description 07/29/2024 Refill [facility] [address] [place], [place] [phone] Renetta Gómez MD [address] [place] [address] Pruritus Social History Tobacco Use Types Packs/Day [...] t he electric, gas, oil or water [employer] threatened to shut off services in your [...] 2:00 PM EST Office Visit [facility] [address] [place] [address] Renetta Gómez MD [address] [place] [address] 10/12/2025 1:30 PM EST Office Visit [facility] OPTOMETRY [address] [place] [address] Rj, Betina, OD [address] [place] [address] documented as of this encounter Visit Diagnoses Diagnosis Pruritus Unspecified pruritic disorder documented in this encounter Additional Health Concerns Assessment Noted Time PHQ-9 Depression Total Score: 0 04/06/20 23 10:11 AM EDT documented as of this encounter Care Teams Dyeing Machine Tender Relationship Specialty Start Date End Date Renetta Gómez MD [address] [place] [phone] PCP - General Family Medicine 12/29/18 Manuel Suazo Car VarnisherSheetmetal Worker 06/13/25 documented as of this encounter
== END 2025-07-09 08:03 | disposition home or self-care (01) ==
LOC: HO.HHCL 08:02
PROVIDERS: PCP Internal Medicine; Visit Provider Internal Medicine
DX: E11.22 Type 2 diabetes mellitus with diabetic chronic kidney disease (principal); N18.9 Chronic kidney disease, unspecified; E03.9 Hypothyroidism, unspecified
CPT/HCPCS: 36415; 83036; 84443

== ENCOUNTER 2025-07-11 09:21 | Outpatient (REF) | payer MEDICAID, SELFPAY ==
--- OUTSIDE RECORDS SUMMARY | 2025-07-11 10:48 | XMS_ITS | Encounter Summary ---
Author Organization [employer] Address [address] [facility] 7[address] [place] [address] Care Team Providers Care Turbinated Bone Grinder Name Role Phone Renetta Gómez MD Primary Care Provide r Reason for Visit * Reason Comments Med Refill Encounter Details Date Type Department Care Team (Late st Contact Info) Description 07/29/2024 Refill [facility] MED[facility] [address] [place], [place] [phone] Renetta Gómez MD [address] [place] [address] Pruritus Social History Tobacco Use Types Packs/Day [...] t he electric, gas, oil or water [employer] threatened to shut off services in your [...] 07/25/2025 2:00 PM EST Office Visit [facility] MED[facility] [address] [place] [address] Renetta Gómez MD [address] [place] [address] 10/12/2025 1:30 PM EST Office Visit [facility] OPTOMETRY [address] [place] [address] Rj, Betina, OD [address] [place] [address] documented as of this encounter Visit Diagnoses Diagnosis Pruritus Unspecified pruritic disorder documented in this encounter Additional Health Concerns Assessment Noted Time PHQ-9 Depression Total Score: 0 04/06/20 23 10:11 AM EDT documented as of this encounter Care Teams Turbinated Bone Grinder Relationship Specialty Start Date End Date Renetta Gómez MD [address] [place] [phone] PCP - General Family Medicine 12/29/18 Manuel Suazo Burrer HandShipping Services Sales Representative 06/13/25 documented as of this encounter
--- OUTSIDE RECORDS SUMMARY | 2025-07-11 10:48 | XMS_ITS | Encounter Summary ---
Author Organization [employer] Address [address] [facility] 7t [place] [address] Care Team Providers Care Cereal Chemist Name Role Phone Renetta Gómez MD Primary Care Provide r Encounter Details Date Type Department Care Team (Late st Contact Info) Description 07/09/2025 Orders Only GENERIC EXTERNAL DATA DEPARTMENT Provider, [...] 2:00 PM EST Office Visit [facility] MEDICINE [address] [place] [address] Renetta Gómez MD [address] [place] [address] 10/12/2025 1:30 PM EST Office Visit [facility] OPTOMETRY [address] [place] [address] Rj, Betina, OD 230 [place] [address] documented as of this encounter Procedures Procedure Name Priority Date/Time Associated Diagnosis Comments TSH W/REFLEX TO FT4 Routine 07/09/2025 8 :11 AM EDT HEMOGLOBIN A1C Routine 07/09/2025 8:11 AM EDT documented in this encounter Results * TSH with Reflex to Free T4 (07/09/2025 8:11 AM EDT) TSH reflex Free T4 1.78 0.32 - 4.0 uIU/mL [facility] 07/09/2025 8:11 AM EDT 07/09/2025 11:32 AM EDT us Generic External Data Provider LAB BLOOD ORDERAB LES Final Result [facility] [address] [place] [address] [phone] * (ABNORMAL) Hemoglobin A1c (07/09/2025 8:11 AM EDT) Hemoglobin A1c 6.2(H) <6.0 % [facility] Comment:Hemoglobin A1C Refer ence Range Adults: 4.8 - 6.0 % Non diabetic: < 6.0 % Goal: < 7.0 %Additional Action Suggested: > 8.0 %Note: Hemoglobin A1c results are invalid for patients with abnormal amounts of HbF. Blood transfusions may impact the HbA1c concentration in the patient sample. Estimated Average Glucose 131 mg/dL [facility] Comment:eAG = Estimated ave rage glucose which is %A1C expressed asaverage glucose, using the formula of the K7S-McaadjkVsnxwza Glucose study (ADAG), Diabetes Care, Vol.31,#8,2007 07/09/2025 8:11 AM EDT 07/09/2025 11:32 AM EDT us Generic External Data Provider LAB BLOOD ORDERAB LES Final Result [facility] [address] [place] [address] [phone] documented in this encounter Visit Diagnoses Not on filedocumented in this encounter Additional Health Concerns Assessment Noted Time PHQ-9 Depression Total Score: 0 04/16/20 25 12:12 PM EDT documented as of this encounter Care Teams Cereal Chemist Relationship Specialty Start Date End Date Renetta Gómez MD [address] [place] [id number] PCP - General Family Medicine 12/29/18 Manuel Suazo Profiling Machine Setup OperatorAdult Literacy Teacher 06/13/25 documented as of this encounter
--- OUTSIDE RECORDS SUMMARY | 2025-07-11 10:48 | XMS_ITS | Encounter Summary ---
Author Organization [employer] Address [address] [facility] 7t [place] [address] Care Team Providers Care Frame Carver Spindle Name Role Phone Renetta Gómez MD Primary Care Provide r Reason for Visit * Reason Onset Date Comments pt1 06/21/2025 Encounter Details Date Type Department Care Team ([facility] st Contact Info) Description 06/21/2025 Telephone [facility] MEDICINE [address] [place], [place] [phone] Renetta Gómez MD [address] [place] [address] pt1 Social History Tobacco Use Types Packs/Day [...] [facility] [address] [place] [address] Escort needed: Y/N: Yes Do you have a wheelchair: Y/N: No If yes- Manual or electric: \ Visits: 4x a year documented in this encounter Plan of Treatment Upcoming Encounters Date Type Department Care Team (Late st Contact Info) Description 07/25/2025 2:00 PM EST Office Visit [facility] MEDICINE [address] [place] [address] Renetta Gómez MD [address] [place] [address] 10/12/2025 1:30 PM EST Office Visit [facility] OPTOMETRY [address] [place] [address] Rj, Betina, OD 230 [place] [address] documented as of this encounter Visit Diagnoses Not on filedocumented in this encounter Additional Health Concerns Assessment Noted Time PHQ-9 Depression Total Score: 0 04/16/20 25 12:12 PM EDT documented as of this encounter Care Teams Frame Carver Spindle Relationship Specialty Start Date End Date Renetta Gómez MD [address] [place] [address] PCP - General Family Medicine 12/29/18 Manuel Suazo Human Resources Office ManagerLoading And Unloading Supervisor 06/13/25 documented as of this encounter
--- OUTSIDE RECORDS SUMMARY | 2025-07-11 10:48 | XMS_ITS | Encounter Summary ---
Author Organization [employer] Address [address] [facility] 7t [place] [address] Care Team Providers Care Support Team Assoc Name Role Phone Renetta Gómez MD Primary Care Provide r Encounter Details Date Type Department Care Team (Late st Contact Info) Description 11/10/2022 Orders Only [facility] CHC MED & PEDS [address] [place] [address] Lizbeth Navarro LPN Social History Tobacco Use [...] Visit [facility] MEDICINE [address] [place] [address] Renetta Gómez MD [address] [place] [address] 10/12/2025 1:30 PM EST Office Visit [facility] OPTOMETRY [address] [place] [address] Betina De La Rosa, OD 230 [place] [address] documented as of this encounter Visit Diagnoses Not on filedocumented in this encounter Care Teams Support Team Assoc Relationship Specialty Start Date End Date Renetta Gómez MD [address] [place] [address] PCP - General Family Medicine 12/29/18 Manuel Suazo Account ConsultantBand Saw Runner 06/13/25 documented as of this encounter
--- OUTSIDE RECORDS SUMMARY | 2025-07-11 10:48 | XMS_ITS | Clinical Summary ---
Author Organization [address] [facility] Address [address] [place] [address] Phone Care Team Providers Care Welder Production Line Gas Name Role Phone Renetta Gómez MD Primary [...] pain 06/13/2024 T2DM (type 2 diabetes mellitus) ([facility] V24, CM S/[facility] V28) 06/13/2024 Encounters Date Type Department Care Team Description 04/18/2025 1:45 PM EDT Office Visit Orthopedic Surgery [facility] [address] [facility] [address] [place] [phone] Ed Cowart, DPM Dermatophytosis of nail (Primary Dx); Diabetic mononeuropathy simplex ([facility] V24, [facility] V28); Acquired hammer toe of right foot; Hammer toe of left foot; Type II diabetes mellitus with peripheral circulatory disorder ([facility] V24, [facility] V28) from Last 3 Months Social [...] PM EST Office Visit Orthopedic Surgery - [address] [phone] Ed Cowart, DPM [address] [place] [phone] Health Maintenance Due Date Last Done Comments [...] topic Insurance MEDICAID - [place] Care Teams Welder Production Line Gas Relationship Specialty Start Date End Date Renetta Gómez MD [address] [phone] PCP - General 08/25/23
--- OUTSIDE RECORDS SUMMARY | 2025-07-11 10:48 | XMS_ITS | Encounter Summary ---
Author Organization [employer] Address [address] [facility] 7t [place] [address] Care Team Providers Care Food Services Coordinator Name Role Phone Renetta Gómez MD Primary Care Provide r Encounter Details Date Type Department Care Team (Late st Contact Info) Description 12/02/2022 Orders Only [facility] CHC MED & PEDS [address] [place] [address] Lizbeth Navarro LPN Social History Tobacco Use [...] Description 07/25/2025 2:00 PM EST Office Visit [facility] MEDICINE [address] [place] [address] Renetta Gómez MD [address] [place] [address] 10/12/2025 1:30 PM EST Office Visit [facility] OPTOMETRY [address] [place] [address] Betina De La Rosa, OD [address] [place] [address] documented as of this encounter Visit Diagnoses Not on filedocumented in this encounter Care Teams Food Services Coordinator Relationship Specialty Start Date End Date Renetta Gómez MD [address] [place] [address] PCP - General Family Medicine 12/29/18 Manuel Suazo Management Trainee Program StoresSeismology Teacher 06/13/25 documented as of this encounter
--- OUTSIDE RECORDS SUMMARY | 2025-07-11 10:48 | XMS_ITS | Encounter Summary ---
Author Organization [employer] Address [address] [place] [address] 7t [place] [address] Care Team Providers Care Physician Executive Name Role Phone Renetta Gómez MD Primary Care Provide r Reason for Visit * Reason Comments Med Refill Encounter Details Date Type Department Care Team (Late Contact Info) Description 03/24/2023 Refill [facility] MEDICINE [address] [place] [address] Roxana Quinonez MD [address] [place] [address] Social History Tobacco Use Types Packs/Day Years [...] Description 07/25/2025 2:00 PM EST Office Visit [facility] MEDICINE [address] [place] [address] Renetta Gómez MD [address] [place] [address] 10/12/2025 1:30 PM EST Office Visit [facility] OPTOMETRY [address] [place] [address] Betina De La Rosa, OD [address] [place] [address] documented as of this encounter Visit Diagnoses Not on filedocumented in this encounter Care Teams Physician Executive Relationship Specialty Start Date End Date Renetta Gómez MD [address] [place] [address] PCP - General Family Medicine 12/29/18 Manuel Suazo Health Administration TeacherRenal Social Worker 06/13/25 documented as of this encounter
--- OUTSIDE RECORDS SUMMARY | 2025-07-11 10:48 | XMS_ITS | Encounter Summary ---
Author Organization [employer] Address [address] [place] [address] 7t [place] [address] Care Team Providers Care Solar Sales Estimator Name Role Phone Renetta Gómez MD Primary Care Provide r Reason for Visit * Reason Comments Med Refill Encounter Details Date Type Department Care Team (Late Contact Info) Description 12/02/2022 Refill [facility] CHC MED & PEDS [address] [place], [place] [phone] Fannie Ceron MD [address] [place] [address] Type 2 diabetes mellitus without complication, unspecified whether ferry terminal agent insulin use ([facility]) Social History Tobacco [...] Description 07/25/2025 2:00 PM EST Office Visit [facility] MEDICINE [address] [place] [address] Renetta Gómez MD [address] [place] [address] 10/12/2025 1:30 PM EST Office Visit [facility] OPTOMETRY [address] [place], [place] [phone] Betina De La Rosa, OD [address] [place] [address] documented as of this encounter Visit Diagnoses Diagnosis Type 2 diabetes mellitus without complication, unspecified whether ferry terminal agent insulin use documented in this encounter Care Teams Solar Sales Estimator Relationship Specialty Start Date End Date Renetta Gómez MD [address] [place] [address] PCP - General Family Medicine 12/29/18 Manuel Suazo Ground Water ContractorAutomation Tech 06/13/25 documented as of this encounter
--- OUTSIDE RECORDS SUMMARY | 2025-07-11 10:48 | XMS_ITS | Encounter Summary ---
Author Organization [employer] Address [address] [facility] 7t [place] [address] Care Team Providers Care Gag Writer Name Role Phone Renetta Gómez MD Primary Care Provide r Reason for Visit * Reason Onset Date Comments PT1 03/21/2024 Encounter Details Date Type Department Care Team ([facility] st Contact Info) Description 03/21/2024 Telephone [facility] MEDICINE [address] [place], [place] [phone] Renetta Gómez MD [address] [place] [address] PT1 Social History Tobacco Use Types Packs/Day [...] facility name: Dr.Allison Bennett Facility Address: [address] [place], [place] Escort needed: Y/N: Yes Do you have a wheelchair: no If yes- Manual or electric: no Visits: 4 Patient calling requesting PT1 Home Address verified: Y/N: Yes Provider name or facility name: Dr.Corina Leon Facility Address: [address] [place], [place] Escort needed: Y/N: Yes Do you have a wheelchair: Y/N: No If yes- Manual or electric: no Visits: 4 Patient calling requesting PT1 Home Address verified: Y/N: Yes Provider name or facility name: Dr. Ele Esparza Facility Address: [address] [place], [place] Escort needed: Y/N: Yes Do you have a wheelchair: Y/N: No If yes- Manual or electric: no Visits: 4 Patient calling requesting PT1 Home Address verified: Y/N: No Provider name or facility name: Dr. Margie Hugo Facility Address: [address] [place], [place] Escort needed: Y/N: Yes Do you have a wheelchair: Y/N: No If yes- Manual or electric: no Visits: 4 * Telephone Encounter - Emily Rodriguez - 03/21/2024 12:28 PM EDT Patient calling requesting PT1 Home Address verified: Y/N: Yes Provider name or facility name: [facility] Facility Address: [address] [facility] needed: Y/N: Yes Do you have a wheelchair: Y/N: No If yes- Manual or electric: NO Visits: ALL FUTURE APPTS documented in this encounter Plan of Treatment Upcoming Encounters Date Type Department Care Team (Late st Contact Info) Description 07/25/2025 2:00 PM EST Office Visit [facility] MEDICINE [address] [place] [address] Renetta Gómez MD [address] [place] [address] 10/12/2025 1:30 PM EST Office Visit [facility] OPTOMETRY [address] [place] [address] Rj, Betina, OD [address] [place] [address] documented as of this encounter Visit Diagnoses Not on filedocumented in this encounter Additional Health Concerns Assessment Noted Time PHQ-9 Depression Total Score: 0 04/06/20 23 10:11 AM EDT documented as of this encounter Care Teams Gag Writer Relationship Specialty Start Date End Date Renetta Gómez MD [address] [place] [address] PCP - General Family Medicine 12/29/18 Manuel Suazo Insulation HelperMedical Associate 06/13/25 documented as of this encounter
--- OUTSIDE RECORDS SUMMARY | 2025-07-11 10:48 | XMS_ITS | Clinical Summary ---
Author Organization [employer] Address [address] [facility] 7t [place] [address] Care Team Providers Care Prosthetic Makeup Designer Name Role Phone Renetta Gómez MD Primary Care Provide r Allergies Active Allergy Reactions Criticality Noted Date Comments Acetaminophen 12/29/2018 Other reaction(s): Hives / Skin Rash Codeine 12/29/2018 Other reaction(s): Hives / Skin Rash Shellfish Allergy Angioedema High 12/09/2023 Can eat clams and fish Medications FREESTYLE LITE test stripIndications:T ype 2 diabetes mellitus without complication, unspecified whether termination clerk insulin use USE TO TEST FINGER STICK BLOOD SUGAR two (2) times a day 100 strip 1 12/03/19 23 Active escitalopram (Lexapro) 20 MG tablet Take 20 mg by mouth in the morning. 06/23/20 23 Active traZODone (Desyrel) 150 MG tablet Take 150 mg by mouth at bedtime. 06/11/20 23 Active Continuous Blood Gluc Systems Manager (FreeStyle Oren 2 [place]) deviceIndications: Type 2 diabetes mellitus with hyperglycemia, with long-term current use of insulin ([facility]) Scan sensor every 8 hours 1 each 07/01/20 23 Active Continuous Blood Gluc Sensor (FreeStyle Oren 2 Sensor) miscIndications:Ty pe 2 diabetes mellitus with hyperglycemia, with long-term current use of insulin ([facility]) Apply 1 sensor every 14 days 2 each 07/01/20 23 Active Trulicity 4.5 MG/0.5ML solution pen-injectorIndica tions:Type 2 diabetes mellitus with hyperglycemia ([facility]) INJECT 4.5 mg SUBCUTANEOUSLY EVERY [...] up: with endocrinology as scheduled Fibromyalgia 06/30/2024 longterm current use of insulin (CMS/HCC) 06/30 Liver [...] Encounters Date Type Department Care Team Description 07/09/2025 Orders Only GENERIC EXTERNAL DATA DEPARTMENT Provider, Generic External Data 06/21/2025 Patient Outreach [facility] [address] [place] [phone] Renetta Gómez MD Care Coordination (CHW outreach for SDOH PT-1 and food needs-referral completed /) 06/21/2025 Telephone [facility] [address] [place] [phone] Renetta Gómez MD pt1 06/13/2025 Telephone [facility] MED & PEDS [address] [place], [place] [phone] Renetta Gómez MD Care Coordination (ICP Care Plan) 05/25/2025 Outside Procedure [facility] [address] [place] [address] Betina De La Rosa, OD Presbyopia (Primary Dx) 05/10/2025 10:00 AM EDT Office Visit [facility] [address] [place] [address] Betina De La Rosa, OD Regular astigmatism of left eye (Primary Dx) 05/09/2025 Orders Only GENERIC EXTERNAL DATA DEPARTMENT Provider, Generic External Data 04/16/2025 11:15 AM EDT Office Visit [facility] [address] [place] [phone] Renetta Gómez MD Type 2 diabetes mellitus with hyperglycemia, with long-term current use of insulin (CMS/HCC) (Primary Dx); Cirrhosis of liver without ascites, unspecified hepatic cirrhosis type (CMS/HCC); Dietary counseling; Exercise counseling; Chronic right shoulder pain; Pruritus; Gastroesophageal reflux disease, unspecified whether esophagitis present; Hypothyroidism, unspecified type; Mild intermittent asthma without complication 04/16/2025 Travel 04/10/2025 2:00 PM EDT Office Visit [facility] [address] [place] [address] Rj, Betina, OD 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 2 diabetes mellitus (CMS/HCC) (Primary Dx); Age-related nuclear cataract of both eyes; Dry eyes; Presbyopia 04/10/2025 Travel 04/10/2025 Telephone [facility] [address] [place] [address] Renetta Gómez MD No Show from Last 3 Months Immunizations Immunization Administration [...] 2:00 PM EST Office Visit [facility] [address] [place] [address] Renetta Gómez MD [address] [place] [address] 10/12/2025 1:30 PM EST Office Visit [facility] OPT[facility] [address] [place] [address] Rj, Betina, OD [address] [place] [address] Health Maintenance Due Date Last Done Comments [...] SDOH Screening 09/25/2025 09/25/2024 Diabetes: Hemoglobin A1C 01/07/2026 025, 04/16/2025, 10/05/2024, Additional history exists Eye Exam 04/10/2026 04/10/2025, 03/14, 04/10/2025, Additional history exists Alcohol/Substance Use Screening 04/16/2026 04/16/2025 Depression Screening 04/16/2026 04/16/2025, 04/16/20 Disability Screening 04/16/2026 04/16/2025 Tobacco Screening 04/26/2026 [...] HEMOGLOBIN A1C Routine 07/09/2025 8:11 AM EDT BI MAMMOGRAM SCREENING TOMOSYNTHESIS BILATERAL Routine 05/22/2025 9:30 AM EDT GLUCOSE, WHOLE BLOOD Routine 05/09/2025 12:48 PM EDT POCT GLYCATED HEMOGLOBIN, TOTAL Routine 04/16/2025 11:42 AM EDT Type 2 diabetes mellitus with hyperglycemia, with long-term current use of insulin ([facility]) POCT GLUCOSE Routine 04/16/2025 11:41 AM EDT Type 2 diabetes mellitus with hyperglycemia, with long-term current use of insulin ([facility]) OCT, RETINA - OU - BOTH EYES Routine 04/10/2025 2:00 PM EDT 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 2 diabetes mellitus ([facility]) LIPID PANEL, STANDARD Routine 07/12/2024 10:54 AM EDT ALBUMIN, RANDOM URINE W/CREATININE Routine 07/12/2024 10:52 AM EDT HIV ANTIBODY/ANTIGEN ([place] DPH) Routine 07/02/2023 8:37 AM EDT HM COLONOSCOPY Routine 09/15/2022 [facility] HISTORICAL HEPATITIS A,B,C PROFILE Routine 08/11/2022 11:00 AM EST [facility] HISTORICAL HPV DNA, HIGH RISK, CERVICAL Routine 05/08/2020 3:09 PM EDT THINPREP IMAGING SYSTEM PAP Routine 05/08/2020 3:09 PM EDT from Last 3 Months or Most Recently Relevant to Health Maintenance Results * TSH with Reflex to Free T4 (07/09/2025 8:11 AM EDT) TSH reflex Free T4 1.78 0.32 - 4.0 uIU/mL [facility] 07/09/2025 8:11 AM EDT 07/09/2025 11:32 AM EDT us Generic External Data Provider LAB BLOOD ORDERAB LES Final Result Performing Organization Address [facility] Co de Phone Number [facility] [address] [place] [phone] * (ABNORMAL) Hemoglobin A1c (07/09/2025 8:11 AM EDT) Hemoglobin A1c 6.2(H) <6.0 % [facility] Comment:Hemoglobin A1C Refer ence Range Adults: 4.8 - 6.0 % Non diabetic: < 6.0 % Goal: < 7.0 %Additional Action Suggested: > 8.0 %Note: Hemoglobin A1c results are invalid for patients with abnormal amounts of HbF. Blood transfusions may impact the HbA1c concentration in the patient sample. Estimated Average Glucose 131 mg/dL [facility] Comment:eAG = Estimated ave rage glucose which is %A1C expressed asaverage glucose, using the formula of the U4I-ZfvopotBdqcese Glucose study (ADAG), Diabetes Care, Vol.31,#8,2007 07/09/2025 8:11 AM EDT 07/09/2025 11:32 AM EDT us Generic External Data Provider LAB BLOOD ORDERAB LES Final Result Performing Organization Address [facility] Co de Phone Number [facility] [address] [place] [phone] * BI Mammogram Screening Tomosynthesis Bilateral (05/22/2025 9:30 AM EDT) Anatomical Region Laterality Modality Breast Bilateral Mammography 05/22/2025 9:30 AM EDT Narrative 05/25/2025 5:34 PM EDT [facility] [address] [place] [address] Mammography Report Signed Patient: Renata Gusman MR#: [id number] : 1970 Acct:[id number] Age/Sex: 55 / F ADM Date: 05/22/25 Loc: [facility] Attending Dr: Renetta Pedro MD Ordering Physician: Renetta Gómez MD Results: 1Negative Date of Service: 05/22/25 Follow Up: 1 Year From Orig ina Mammogram Procedure(s): MM tomosynthesis screening BI Accession Number(s): [id number] cc: Renetta Gómez MD Reason For Exam: [...] 05/25/25 1731 DD/ 0930 TD/TT: 05/22/25 0950 Crew Leader: Procedure Note Donotuseinterpreter, Image - 05/25/2025 [facility] [address] [place] [address] [place], [place] [address] Mammography Report Signed Patient: Julia Gusman#: [id number] : 1970Acct:[id number] Age/Sex: 55 / FADM Date: 05/22/25 Loc: HO.MAMMO Attending Dr: Renetta Pedro MD Ordering Physician: Renetta Gómez MDResults: 1Negative Date of Service: 05/22/25Follow Up: 1 Year From Orig inal Mammogram Procedure(s): MM tomosynthesis screening BI Accession Number(s): [id number] cc: Renetta Gómez MD Reason For Exam: [...] 05/25/25 1731 DD/ 0930 TD/TT: 05/22/25 0950 Crew Leader: us Renetta Pedro MD IMG BI PROCEDURES Fin al Result * (ABNORMAL) Glucose, Whole Blood (05/09/2025 12:48 PM EDT) Glucose, Whole Blood 133(H) 60 - 115 mg/dL [facility] Comment:METER #: [id number] 0Testing performed in the Endocrinology Department [address] , [address], [place]. 05/09/2025 12:4 8 PM EDT 05/09/2025 12:51 PM EDT us Generic External Data Provider LAB BLOOD ORDERAB LES Final Result [facility] [address] [place] [phone] * (ABNORMAL) POCT HGB A1C (04/16/2025 11:42 AM EDT) Hemoglobin A1C 6.0(A) 4.0 - 5.7 % QC Media Lot # [id number] Lot# Expiration Date [id number] Blood 04/16/2025 11:4 2 AM EDT Renetta Pedro MD POINT OF CARE TEST EN TER/EDIT ORDERABLES Final Result * POCT Glucose (04/16/2025 11:41 AM EDT) Glucose Blood, POC 123 60 - 200 mg/dL QC Media Lot # [id number] Lot# Expiration Date [id number] Blood Capillary blood specimen / Unknown 04/16/2025 [...] 10:54 AM EDT) Triglycerides 170(H) <150 mg/dL [facility] Comment:Desirable Triglyceri de: less than 150 mg/dLBorderline High Triglyceride 150-199 mg/dLHigh Triglyceride: 200-499 mg/dLVery High Triglyceride: greater than or equal to 5OO mg/dL Cholesterol 179 <200 mg/dL [facility] Comment:Desirable Cholestero l: less than 200 mg/dLBorderline High Cholesterol: 200-239 mg/dLHigh Cholesterol: greater than 239 mg/dL LDL Cholesterol Calculated 109(H) <100 mg/dL [facility] Comment:Desirable LDL: less than 100 mg/dLNear Optimal/Above Optimal LDL: 110- 129 mg/dLBorderline High LDL: 130-159 mg/dLHigh LDL: 160-189 mg/dLVery High LDL: greater than or equal to 190 mg/dL HDL Cholesterol 36(L) >40 mg/dL [facility] Comment:Desirable HDL: great er than 40 mg/dL Note: This HDL assay may give artificially low results in patients with liver disease. 07/12/2024 10:5 4 AM EDT 07/12/2024 10:54 AM EDT us Generic External Data Provider LAB BLOOD ORDERAB LES Final Result [facility] [address] [place] [phone] * Albumin, Random Urine W/Creatinine (07/12/2024 10:52 AM EDT) Creatinine, Urine 269.94 mg/dL [facility] Microalbumin Urine 33.0 mg/L [facility] Microalbum Creatinine Ratio Ur 12.2 <30 ug/mg cr [facility] Comment:Albumin/Creatinine R atio Reference Ranges: Normal: < 30 ug/mg creatinine Microalbuminuria: 30 - 300 ug/mg creatinineClinical Albuminuria: > 300 ug/mg creatinine 07/12/2024 10:5 2 AM EDT 07/12/2024 11:37 AM EDT us Generic External Data Provider LAB URINE ORDERAB LES Final Result [facility] [address] [place] [phone] * HIV Ab/Ag ([facility]) (07/02/2023 8:37 AM EDT) HIV AB/AG Nonreactive Nonreactive [facility] Comment:HIV-1 p24 Ag and/or HIV-1/HIV-2 Ab not detected.A test result that is nonreactive does not exclude thepossibility of exposure to or infection with HIV-1 and/orHIV-2. Nonreactive results in this assay for individualswith prior exposure to HIV-1 and/or HIV-2 may be due toantigen and antibody levels that are below the limit ofdetection of this assay.The [employer] HIV Ag/Ab Combo assay result andsupplemental assay results should be interpreted inconjunction with the patient's clinical presentation,history and other laboratory results. If the results areinconsistent with clinical evidence, additional testing issuggested to confirm the result. 07/02/2023 8:37 AM EDT 07/02/2023 11:24 AM EDT us Renetta Pedro MD LAB BLOOD ORDERABLES Final Result Performing Organization Address City/[facility]/ZIP Co de Phone Number [facility] [address] [place] [phone] * Hm Colonoscopy (09/15/2022) Colonoscopy Normal [...] ORDERABLE LABS Final Result Performing Organization Address [facility] de Phone Number [facility] * HPV DNA, HIGH RISK, CERVICAL (05/08/2020 3:09 PM EDT) HPV DNA, HIGH RISK, CERVICAL Not Detected NOT DETECTED [facility] Comment: Not Detected High Risk HPV types (16,18,31,33,35,39,45,51,52, 56,58,59,66,68) were not detected. Other HPV types which cause anogenital lesions may be present. The significance of the other types of HPV in malignant processes has not been established. Methodology: Real Time PCR 05/08/2020 3:09 PM EDT Renetta Pedro MD HISTORICAL/NON ORDERA BLE LABS Final Result Performing Organization Address [facility] Co de Phone Number [facility] [address] * THINPREP TIS PAP (05/08/2020 3:09 [...] has been evaluated with computer assisted technology. Welt Sole Layer: SEE COMMENT [facility] Comment: LT, CT(ASCP) CT screening location: [address] [address] Infection SEE COMMENT [facility] [...] [facility] [address] from Last 3 Months or Most Recently Relevant to Health Maintenance Insurance * Guarantor: Renata Gusman Account Type Relation to Patient Date of Phone Billing Address Personal/Family Self [address] [place] [address] * Guarantor: Renata Gusman Account Type Relation to Patient Date of Phone Billing Address Personal/Family Self [address] [place] [address] Care Teams Prosthetic Makeup Designer Relationship Specialty Start Date End Date Renetta Gómez MD [address] [place] [phone] PCP - General Family Medicine 12/29/18 Manuel Suazo Home AdministratorInpatient Care Manager Rn 06/13/25
--- OUTSIDE RECORDS SUMMARY | 2025-07-11 10:48 | XMS_ITS | Encounter Summary ---
Author Organization [employer] Address [address] [facility] 7t [place] [address] Care Team Providers Care Book Agent Name Role Phone Renetta Gómez MD Primary Care Provide r Reason for Visit * Reason Onset Date Comments PT1 05/24/2024 Encounter Details Date Type Department Care Team ([facility] st Contact Info) Description 05/24/2024 Telephone [facility] [address] [place], [place] [phone] Renetta Gómez MD [address] [place] [address] PT1 Social History Tobacco Use Types Packs/Day [...] name: Ed Cowart DPM Facility Address: [address] [place] [address] Escort needed: Y/N: Yes Do you have a wheelchair: Y/N: No If yes- Manual or electric: Visits: 4-5 visits a year documented in this encounter Plan of Treatment Upcoming Encounters Date Type Department Care Team (Late st Contact Info) Description 07/25/2025 2:00 PM EST Office Visit [facility] [address] [place] [address] Renetta Gómez MD [address] [place] [address] 10/12/2025 1:30 PM EST Office Visit [facility] OPTOMETRY [address] [place] [address] Rj, Betina, OD [address] [place] [address] documented as of this encounter Visit Diagnoses Not on filedocumented in this encounter Additional Health Concerns Assessment Noted Time PHQ-9 Depression Total Score: 0 04/06/20 23 10:11 AM EDT documented as of this encounter Care Teams Book Agent Relationship Specialty Start Date End Date Renetta Gómez MD [address] [place] [address] PCP - General Family Medicine 12/29/18 Manuel Suazo Cigar Head HolerVp Celebrity Services 06/13/25 documented as of this encounter
--- OUTSIDE RECORDS SUMMARY | 2025-07-11 10:48 | XMS_ITS | Encounter Summary ---
Author Organization [employer] Address [address] [facility] 7t [place] [address] Care Team Providers Care Bottling Line Operator Name Role Phone Renetta Gómez MD Primary Care Provide r Encounter Details Date Type Department Care Team (Late Contact Info) Description 06/16/2023 Orders Only [facility] CHC MED & PEDS [address] [place], [place] [phone] Lizbeth Navarro LPN Social History Tobacco Use [...] Description 07/25/2025 2:00 PM EST Office Visit [facility] MEDICINE [address] [place], [place] [phone] Renetta Gómez MD [address] [place], [place] [phone] 10/12/2025 1:30 PM EST Office Visit [facility] OPTOMETRY [address] [place], [place] [phone] Betina De La Rosa, OD [address] [place], [place] [phone] documented as of this encounter Visit Diagnoses Not on filedocumented in this encounter Additional Health Concerns Assessment Noted Time PHQ-9 Depression Total Score: 0 04/06/20 23 10:11 AM EDT documented as of this encounter Care Teams Bottling Line Operator Relationship Specialty Start Date End Date Renetta Gómez MD 230 [facility] [address] PCP - General Family Medicine 12/29/18 Manuel Suazo Venetian Blind CleanerMarketing Business Analyst 06/13/25 documented as of this encounter
--- OUTSIDE RECORDS SUMMARY | 2025-07-11 10:48 | XMS_ITS | Encounter Summary ---
Author Organization [employer] Address [address] [place] [address] 7t [place] [address] Care Team Providers Care Straight Truck Driver Name Role Phone Renetta Gómez MD Primary Care Provide r Reason for Visit * Reason Comments Med Refill Encounter Details Date Type Department Care Team (Late st Contact Info) Description 06/16/2023 Refill [facility] MED[facility]INE [address] [place], [place] [phone] Roxana Quinonez MD [address] [place] [address] [phone] Social History Tobacco Use Types Packs/Day Years [...] 2:00 PM EST Office Visit [facility] MEDICINE [address] [place], [place] [phone] Renetta Gómez MD [address] [place], [place] [phone] 10/12/2025 1:30 PM EST Office Visit [facility] OPTOMETRY [address] [place], [place] [phone] Betina De La Rosa, OD [address] [place], [place] [phone] documented as of this encounter Visit Diagnoses Not on filedocumented in this encounter Additional Health Concerns Assessment Noted Time PHQ-9 Depression Total Score: 0 04/06/20 23 10:11 AM EDT documented as of this encounter Care Teams Straight Truck Driver Relationship Specialty Start Date End Date Renetta Gómez MD [address] [place], [place] [phone] PCP - General Family Medicine 12/29/18 Manuel Suazo Fish IcerSales Training Manager 06/13/25 documented as of this encounter
--- OUTSIDE RECORDS SUMMARY | 2025-07-11 10:48 | XMS_ITS | Encounter Summary ---
Author Organization [employer] Address [address] [facility] 7t [place] [address] Care Team Providers Care Sterile Preparation Technician Name Role Phone Renetta Gómez MD Primary Care Provide r Reason for Visit * Reason Onset Date Comments PT-1 11/08/2024 Encounter Details Date Type Department Care Team ([facility] st Contact Info) Description 11/08/2024 Telephone [facility] MEDICINE [address] [place], [place] [phone] Renetta Gómez MD [address] [place] [address] PT-1 Social History Tobacco Use Types Packs/Day [...] Y/N: Yes Provider name or facility name: [address] [place] [address] Dr. Wolfe [address] Escort needed: Y/N: No Do you have a wheelchair: Y/N: No If yes- Manual or electric: Visits: (4) ( monthly) documented in this encounter Plan of Treatment Upcoming Encounters Date Type Department Care Team (Late st Contact Info) Description 07/25/2025 2:00 PM EST Office Visit [facility] MEDICINE [address] [place] [address] Renetta Gómez MD [address] [place] [address] 10/12/2025 1:30 PM EST Office Visit [facility] OPTOMETRY [address] [place] [address] Betina De La Rosa OD [address] [place] [address] documented as of this encounter Visit Diagnoses Not on filedocumented in this encounter Additional Health Concerns Assessment Noted Time PHQ-9 Depression Total Score: 0 04/06/20 10:11 AM EDT documented as of this encounter Care Teams Sterile Preparation Technician Relationship Specialty Start Date End Date Renetta Gómez MD [address] [place] [address] PCP - General Family Medicine 12/29/18 Manuel Suazo Qa EngineerConstruction Skills Teacher 06/13/25 documented as of this encounter
--- OUTSIDE RECORDS SUMMARY | 2025-07-11 10:48 | XMS_ITS | Encounter Summary ---
Author Organization [employer] Address [address] [facility] 7t [place] [address] Care Team Providers Care General Internal Medicine Doctor Name Role Phone Renetta Gómez MD Primary Care Provide r Reason for Visit * Reason Comments Med Refill Encounter Details Date Type Department Care Team (Late st Contact Info) Description 09/25/2023 Refill [facility] [address] [place], [place] [phone] Renetta Gómez MD [address] [place], [place] [phone] Hypothyroidism, unspecified type Social History Tobacco Use [...] Description 07/25/2025 2:00 PM EST Office Visit [facility] [address] [place] [address] Renetta Gómez MD [address] [place] [address] 10/12/2025 1:30 PM EST Office Visit [facility] OPTOMETRY [address] [place] [address] Rj, Betina, OD [address] [place] [address] documented as of this encounter Visit Diagnoses Diagnosis Hypothyroidism, unspecified type documented in this encounter Additional Health Concerns Assessment Noted Time PHQ-9 Depression Total Score: 0 04/06/20 23 10:11 AM EDT documented as of this encounter Care Teams General Internal Medicine Doctor Relationship Specialty Start Date End Date Renetta Gómez MD [address] [place] [address] PCP - General Family Medicine 12/29/18 Manuel Suazo Piano And Organ RefinisherGas Mask Assembler 06/13/25 documented as of this encounter
== END 2025-07-11 09:22 | disposition home or self-care (01) ==
LOC: HO.HHCL 09:21
PROVIDERS: Nurse Practitioner Adult Health; PCP Internal Medicine; Visit Provider Internal Medicine
DX: E11.42 Type 2 diabetes mellitus with diabetic polyneuropathy (principal); Z79.4 Long term (current) use of insulin
CPT/HCPCS: 82570

== ENCOUNTER 2025-08-15 13:04 | Outpatient (AMB) | payer MEDICAID, SELFPAY ==
[2025-08-15 13:21] VITALS: BP 110/60; PULSE 70; O2SAT 97; BMI 23.5
--- NOTE | 2025-08-15 13:21 | A.OFFVIS_ITS ---
Vital Signs 08/15/25 13:21 Height 5 ft 4 in Weight 136 lb 10.986 oz BMI 23.5 BP 110/60 Blood Pressure Location Rt brachial Position Sitting Pulse 70 Pulse Source Pulse Oximeter Pulse Oximetry (%) 97 Oxygen Delivery Method Room Air Intake Visit Reasons: DM Intake Note: Patient presents today for a follow-up on Type 2 Diabetes Mellitus: Last Diabetic eye exam was on: 07/2025, [facility], has lase surgery on 08/22/2025 Last Podiatry exam was on: Patient does not see a Oven Attendant Most recent HbA1c: 6.2%, 07/09/2025 Random Glucose- 149 mg/dL, Today Allergies seafood Allergy (Severe, Verified 05/18/25 13:53) throat closes codeine (Tylenol-Codeine) Allergy (Intermediate, Verified 05/18/25 13:53) rash HPI Comments Details: Patient is a 55 year-old female with DM type 2 diagnosed approximately 2017 who presents for continued management of diabetes. Medical history: cirrhosis, CKD stage 3, asthma A1C 6.2 on 07/09 from 05/09 6.5% Diabetes medications: Tresiba 80 units Humalog from she holds for BG<150 she holds Ozempic 2.0 mg weekly tolerating this well Previous meds: jardiance, metformin-intolerant CGM reviewed: 77% target, 0% low, 23% high. GMI 7.1%. She does report infrequent lows over the past 90 days. Exercise: infrequent walking Eye exam: 07/2025 On thyroid replacement: TSH 4.25 06/3024 Levothyrxine 50mcg (increased from 25 mcg) repeat lab in good range 10/17/24 tsh 1.85 ROS CONSTITUTIONAL: Denies weight loss, fever and chills. HEENT: Denies changes in vision and hearing. RESPIRATORY: Denies SOB and cough. CV: Denies palpitations and CP GI: Denies abdominal pain, nausea, vomiting and diarrhea. : Denies dysuria and urinary frequency. MSK: Denies new myalgia and joint pain. SKIN: Denies rash and pruritus. NEUROLOGICAL: Denies headache PSYCHIATRIC: Denies recent changes in mood. PHYSICAL EXAM: GENERAL: Alert and oriented x 3. NAD EYES: EOMI. Anicteric. HENT: Moist mucous membranes. No scleral icterus. No cervical lymphadenopathy. LUNGS: Clear to auscultation bilaterally. CARDIOVASCULAR: Regular rate and rhythm. No murmur. No JVD. ABDOMEN: Soft, non-tender +bs EXTREMITIES: No edema. Non-tender. SKIN: No rashes or lesions. Warm. NEUROLOGIC: No focal neurological deficits. CN II-XII grossly intact PSYCHIATRIC: Cooperative. Appropriate mood and affect [facility] Medical History Carpal tunnel syndrome, right Liver cirrhosis Hyperlipidemia Hepatitis C Elevated liver enzymes Hypothyroidism Depression Fibromyalgia Asthma Type 2 diabetes mellitus with diabetic polyneuropathy Type 2 diabetes mellitus with hyperglycemia, with long-term current use of insulin terminal make up operator current use of insulin Chronic kidney disease, stage 3 Surgical History (Reviewed 05/18/25 @ 13:53 by Viktoria Finnegan [facility]) Hx of elbow surgery Hx of colonoscopy Hx of hand surgery Hx of biopsy H/O oral surgery Family History Mother Diabetes Asthma Kidney stones HTN (hypertension) Brother Diabetes Father Bloodstream infection Social History Household Members: Spouse Are you a primary manager wound care to a significant other at home: No Do you presently have visiting nurse or other home services: No Alcohol intake: current Alcohol intake frequency: does not drink Patient Tobacco Use Status: Never used Tobacco Current occupational status: disabled Physical Exam Vital Signs: Last Vital Signs Pulse 70 08/15/25 13:21 BP 110/60 08/15/25 13:21 Pulse Ox 97 08/15/25 13:21 Oxygen Delivery Method Room Air 08/15/25 13:21 BMI result Body Mass Index 23.5 Results Reviewed Results Reviewed: Laboratory Last Values Glucose (Clinic) 149 mg/dL (60-115) H 08/15/25 13:24 Assessment & Plan Assessment & Plan (1) Type 2 diabetes mellitus with diabetic chronic kidney disease: Code(s): E11.22 - Type 2 diabetes mellitus with diabetic chronic kidney disease Category: Medical Qualifiers: Chronic kidney disease stage: stage 3 (moderate) Chronic kidney disease stage 3 subtype: unspecified whether 3a or 3b Diabetes mellitus terminal make up operator insulin use: with chcf use Qualified Code(s): E11.22 - Type 2 diabetes mellitus with diabetic chronic kidney disease; N18.30 - Chronic kidney disease, stage 3 unspecified; Z79.4 - nursing home (current) use of insulin (2) nursing home current use of insulin: Code(s): Z79.4 - terminal make up operator (current) use of insulin Category: Medical Plan 55 year old presenting for diabetic follow up Diabetes is well controlled. Less frequent lows Decrease tresiba to 76 units daily and decrease mealtime to hold for BG<150 Treat hypoglycemia by rules of 15s Return in 6 months or sooner as needed Medications: New Glucerna Therapeutic Nutrition (nut.tx.gluc.intol,lac-free,soy) Glucerna strawberry Once daily 1 ea PO DAILY 30 ea 3RF NS E46 - Unspecified protein-calorie malnutrition Changed From insulin degludec (Tresiba FlexTouch U-200 insulin) 80 units (0.4 mL) subcut DAILY 30 days 12 mL 6RF E11. - Type 2 diabetes mellitus with diabetic chronic kidney disease To insulin degludec (Tresiba FlexTouch U-200 insulin) 76 units (0.38 mL) subcut DAILY 11.4 mL 6RF 30 days E11. - Type 2 diabetes mellitus with diabetic chronic kidney disease From insulin lispro (Humalog U-100 Insulin) Take 32 units subcutaneous before breakfast and lunch Take 26 units subcutaneous before dinner 1 sliding scale dose subcut USEASDIRECTD 50 mL 3RF E11. - Type 2 diabetes mellitus with diabetic chronic kidney disease To insulin lispro (Humalog U-100 Insulin) Take 32 units subcutaneous before breakfast and lunch Take 22 units subcutaneous before dinner 1 sliding scale dose subcut USEASDIRECTD 50 mL 3RF E11. - Type 2 diabetes mellitus with diabetic chronic kidney disease Coding Level of Care Code Est Pt Level 4 (73136) Diagnoses Type 2 diabetes mellitus with stage 3 chronic kidney disease, with long-term current use of insulin, unspecified whether stage 3a or 3b CKD E11.22; N18.30; Z79.4 Chronic kidney disease stage: stage 3 (moderate) Chronic kidney disease stage 3 subtype: unspecified whether 3a or 3b Diabetes mellitus terminal make up operator insulin use: with terminal make up operator use terminal make up operator current use of insulin Z79.4
[2025-08-15 13:28] LABS: Glucose, Whole Blood 149 mg/dL (60-115)
--- OUTSIDE RECORDS SUMMARY | 2025-08-15 15:34 | XMS_ITS | Encounter Summary ---
Author Organization [employer] Address [address] [place] [address] [address] [place] [address] Care Team Providers Care Treasury Manager Name Role Phone Renetta Gómez MD Primary Care Provide r Reason for Visit * Reason Comments Med Refill Encounter Details Date Type Department Care Team (Late Contact Info) Description 06/16/2023 Refill [facility] [address], [place] [phone] Roxana Quinonez MD [address] [place] [address] Social History Tobacco Use Types Packs/Day Years [...] Description 10/12/2025 1:30 PM EST Office Visit [facility] OPTOMET[facility] [address], [place] [phone] Bteina De La Rosa, OD [address] [place] [address] 10/25/2025 2:30 PM EST Procedure Visit [facility] [address] [place] [address] Renetta Gómez MD [address] [place] [phone] documented as of this encounter Visit Diagnoses Not on filedocumented in this encounter Additional Health Concerns Assessment Noted Time PHQ-9 Depression Total Score: 0 04/06/20 23 10:11 AM EDT documented as of this encounter Care Teams Treasury Manager Relationship Specialty Start Date End Date Renetta Gómez MD [address] [place] [address] PCP - General Family Medicine 12/29/18 Manuel Suazo Supervisor MatrixAccounting Manager 06/13/25 documented as of this encounter
--- OUTSIDE RECORDS SUMMARY | 2025-08-15 15:34 | XMS_ITS | Clinical Summary ---
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 023 Active traZODone (Desyrel) 150 MG tablet Take 150 mg by mouth at bedtime. 023 Active Continuous Blood Gluc Meat Butcher (FreeStyle Oren 2 [place]) deviceIndication s:Type 2 diabetes mellitus with hyperglycemia, with long-term current use of insulin ([facility]) Scan sensor every 8 hours 1 each 023 Active Continuous Blood Gluc Sensor (FreeStyle Oren 2 Sensor) miscIndications: Type 2 diabetes mellitus with hyperglycemia, with long-term current use of insulin ([facility]) Apply 1 sensor every 14 days 2 each 023 Active Trulicity 4.5 MG/0.5ML solution pen-injectorIndi cations:Type 2 diabetes mellitus with hyperglycemia ([facility]) INJECT 4.5 [...] injectionIndicat ions:Type 2 diabetes mellitus with hyperglycemia (HCC) INJECT 74 UNITS SUBCUTANEOUSLY ONCE DAILY 18 mL 3 07/26/20 12:40 PM EST Active pioglitazone (Actos) 15 MG tabletIndication s:Type 2 diabetes mellitus with diabetic polyneuropathy (HCC) Take 1 tablet (15 mg) by mouth Once per day. 90 tablet 3 Active hydrOXYzine HCl (Atarax) 25 MG tabletIndication s:Pruritus Take 1 tablet (25 mg) by mouth 2 times daily. 60 tablet 2 Active omeprazole (PriLOSEC) [address] capsuleIndicatio ns:Gastroesophag eal reflux disease, unspecified whether esophagitis present Take 1 capsule (40 mg) by mouth before breakfast. Do not crush or chew. 90 capsule 1 Active levothyroxine (Synthroid, Levoxyl) 25 MCG tabletIndication s:Hypothyroidism , unspecified type Take 1 tablet (25 mcg) by mouth before breakfast. 90 tablet 3 Active albuterol 108 (90 Base) MCG/ACT inhalerIndicatio ns:Mild intermittent asthma without complication Inhale 2 puffs every 6 (six) hours if needed for wheezing. 18 g 11 2025 Active atorvastatin (Lipitor) 20 MG tabletIndication s:Type 2 diabetes mellitus with hyperglycemia, with long-term current use of insulin (HCC) Take 1 tablet (20 mg) by mouth Once per day. 90 tablet 3 Active hydrOXYzine pamoate (Vistaril) 50 MG capsule Take 1 capsule by mouth 2 times daily. Active ketoconazole (NIZOral) 2 % cream APPLY TO THE AFFECTED AREA TOPICALLY ONCE DAILY Active busPIRone (Buspar) 15 MG tablet Take 1 tablet by mouth 2 times daily. Active Insulin Lispro 100 UNIT/ML solution USE IN INSULIN pump UP TO 130 UNITS ONCE DAILY DIRECTED Active Ozempic, 2 MG/DOSE, 8 MG/3ML solution pen-injector INJECT 2MG SUBCUTANEOUSLY EACH WEEK Active cyclobenzaprine (Flexeril) 10 MG tabletIndication s:Osteoarthritis of right glenohumeral joint Take 1 tablet (10 mg) by mouth 3 times daily for 20 days. 30 tablet 1 Active levothyroxine (Synthroid, Levoxyl) 50 MCG tabletIndication s:Acquired hypothyroidism Take 1 tablet (50 mcg) by mouth Once per day. 90 tablet 1 Active levothyroxine (Synthroid, Levoxyl) 50 MCG tablet Take 1 tablet by mouth Once per day. 025 2024 Discontinued(R eorder (will not trigger notification to Pharmacy)) Active Problems Problem Noted Date Diagnosed Date Enlarged thyroid 07/20/2025 Hypothyroidism 07/20/2025 Assessment & Plan (07/20/2025 12:29 PM EST): Refill for her levothyroxine on today Prolonged capillary refill time 07/20/2025 Right shoulder tendinitis 07/20/2025 Stiffness of right hand joint 07/20/2025 Type 2 diabetes mellitus with diabetic polyneuro hazel 07/20/2025 Overview (07/20/2025): taking Tresiba & Novolog daily and Ozempic weekly on Sundays Carpal tunnel syndrome, right 07/20/2025 Stage 3 chronic kidney disease (CMS/HCC) Chronic right shoulder pain 04/16/2025 Assessment & [...] right glenohumeral joint 07/02 Assessment & Plan (07/20/2025 12:35 PM EST): I will prescribe for patient Flexeril 10 mg every 8 hours she is aware of side effects somnolence, she knows she cannot drive or do any activities that require her attention while taking this medication, she may continue to alternate ibuprofen and acetaminophen for pain, I refer her to orthopedics Assessment & Plan (07/02/2024 4:04 PM EDT): [...] up: with endocrinology as scheduled 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 (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/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) 06/30 Liver [...] carpal tunnel syndrome of right wrist 06/13 T2DM (type 2 diabetes mellitus) 06/13/2024 Wound infection 03/15/2024 GERD (gastroesophageal reflux disease) [...] 2 diabetes mellitus 03/31/2023 Assessment & Plan (07/20/2025 12:30 PM EST): Diabetes is to be under control continue with same medication regimen and follow-up with lehr tender Assessment & Plan (03/17/2024 2:48 PM EDT): [...] Encounters Date Type Department Care Team Description 08/15/2025 Orders Only GENERIC EXTERNAL DATA DEPARTMENT Provider, Generic External Data 08/13/[address] [address] Renetta Gómez MD feb recall 07/20/2025 10:15 AM EST Telemedicine [address] [address] Renetta Gómez MD Type 2 diabetes mellitus with hyperglycemia, with long-term current use of insulin (HCC) (Primary Dx); Osteoarthritis of right glenohumeral joint; Acquired hypothyroidism 07/20/2025 Travel 07/18/2025 Patient Outreach [address] [address] Renetta Gómez MD Pre-visit Planning (SDOH screening completed on 10/05/24) 07/11/2025 Orders Only GENERIC EXTERNAL DATA DEPARTMENT Provider, Generic External Data 07/09/2025 Orders Only GENERIC EXTERNAL DATA DEPARTMENT Provider, Generic External Data 06/21/2025 Patient Outreach [address] [address] Renetta Gómez MD Care Coordination (CHW outreach for SDOH PT-1 and food needs-referral completed /) 06/21/[address] [address] Renetta Gómez MD pt1 06/13/2025 Telephone [facility] MED & PEDS [address] [place], [place] [phone] Renetta Gómez MD Care Coordination (ICP Care Plan) 05/25/2025 Outside Procedure [facility] OPTOMETRY [address] [place] [address] Betina De La Rosa, OD Presbyopia (Primary Dx) from Last 3 Months Immunizations Immunization Administration [...] Description 10/12/2025 1:30 PM EST Office Visit [facility] OPTOMETRY [address] [place] [address] Betina De La Rosa, OD [address] [place] [address] 10/25/2025 2:30 PM EST Procedure Visit [facility] MEDICINE [address] [place] [address] Renetta Gómez MD [address] [place] [address] Health Maintenance Due Date Last Done Comments CT Colonography 1970 FIT DNA/Cologuard 1970 FIT 1970 FOBT 1970 Sigmoidoscopy 1970 Diabetes: Foot Exam 1980 RSV Patients and Patients Aged 60 years or older (1 - Risk 50-74 years 1-dose series) 2020 Cervical Cancer Screening 05/08/2025 HPV/Cotest 05/08/2025 05/08/2020, 02/10/2019 Pap Smear 05/08/2025 05/08/2020 COVID-19 Vaccine ( season) 2025 08/04/2022, 08/29/2021, 01/22/2021, Additional history exists Influenza Vaccine (#1) 2025 , 08/23/2023, 08/04/2022, Additional history exists Lipid Panel 07/12/2025 07/12/2024, 04/13, 08/04/2022, Additional history exists SDOH Screening 09/25/2025 09/25/2024 Diabetes: Hemoglobin A1C 01/07/2026 025, 04/16/2025, 10/05/2024, Additional history exists Eye Exam 04/10/2026 04/10/2025, 03/14, 04/10/2025, Additional history exists Alcohol/Substance Use Screening 04/16/2026 04/16/2025 Depression Screening 04/16/2026 04/16/2025, 04/16/20 25 Disability Screening 04/16/2026 04/16/2025 Tobacco Screening 04/26/2026 04/26/2025 Mammogram 05/22/2026 05/22/2025, 04/15, 05/04/2023, Additional history exists Diabetes: Urine Protein Screening 07/11/2026 07/11/2025, 07/12/2024, 07/12/2024, Additional history exists Colonoscopy 09/15/2027 09/15/2022, 09/15/2022 Colorectal Cancer Screening 09/15/2027 DTaP/Tdap/Td Vaccines [...] on patient's age to complete this topic Goals Goal Patient Goal Type Associated Problems Recent Progress Patient-Stated? Author Help patients manage their type 2 diabetes Care Plan Help patients manage their type 2 diabetes Humera Martínez MA Patient has chronic kidney disease Care Plan Patient has chronic kidney disease Humera Martínez MA Procedures Procedure Name Priority Date/Time Associated Diagnosis Comments GLUCOSE, WHOLE BLOOD Routine 08/15/2025 1:24 PM EST CREATININE, RANDOM URINE Routine 07/11/2025 12:14 PM EDT TSH W/REFLEX TO FT4 Routine 07/09/2025 8 :11 AM EDT HEMOGLOBIN A1C Routine 07/09/2025 8:11 AM EDT BI MAMMOGRAM SCREENING TOMOSYNTHESIS BILATERAL Routine 05/22/2025 9:30 AM EDT LIPID PANEL, STANDARD Routine 07/12/2024 10:54 AM EDT HIV ANTIBODY/ANTIGEN (DAT DPH) Routine 07/02/2023 8:37 AM EDT HM COLONOSCOPY Routine 09/15/2022 EfrenZZ HISTORICAL HPV DNA, HIGH RISK, CERVICAL Routine 05/08/2020 3:09 PM EDT THINPREP IMAGING SYSTEM PAP Routine 05/08/2020 3:09 PM EDT from Last 3 Months or Most Recently Relevant to Health Maintenance Results * (ABNORMAL) Glucose, Whole Blood (08/15/2025 1:24 PM EST) Glucose, Whole Blood 149(H) 60 - 115 mg/dL [facility] Comment:METER #: [id number] 0Testing performed in the Endocrinology Department [address] , [address], [place]. 08/15/2025 1:24 PM EST 08/15/2025 1:28 PM EST us Generic External Data Provider LAB BLOOD ORDERAB LES Final Result Performing Organization Address City/[facility]/ZIP Co de Phone Number [facility] [address] [place] [phone] * Creatinine, Random Urine (07/11/2025 12:14 PM EDT) Creatinine, Urine 126.57 mg/dL [facility] 07/11/2025 12:1 4 PM EDT 07/11/2025 1:23 PM EDT Generic External Data Provider LAB URINE ORDERAB LES Final Result Performing Organization Address [facility] Co de Phone Number [facility] [address] [place] [phone] * TSH with Reflex to Free T4 (07/09/2025 8:11 AM EDT) TSH reflex Free T4 1.78 0.32 - 4.0 uIU/mL [facility] 07/09/2025 8:11 AM EDT 07/09/2025 11:32 AM EDT Generic External Data Provider LAB BLOOD ORDERAB LES Final Result Performing Organization Address [facility] Co de Phone Number [facility] [address] [place] [phone] * (ABNORMAL) Hemoglobin A1c (07/09/2025 8:11 AM EDT) Hemoglobin A1c 6.2(H) <6.0 % [facility] Comment:Hemoglobin A1C Refer ence Range Adults: 4.8 - 6.0 % Non diabetic: < 6.0 % Goal: < 7.0 %Additional Action Suggested: > 8.0 %Note: Hemoglobin A1c results are invalid for patients with abnormal amounts of HbF. Blood transfusions may impact the HbA1c concentration in the patient sample. Estimated Average Glucose 131 mg/dL [facility] Comment:eAG = Estimated ave rage glucose which is %A1C expressed asaverage glucose, using the formula of the X8B-HdximlaGnveevd Glucose study (ADAG), Diabetes Care, Vol.31,#8,Apr. 2007 07/09/2025 8:11 AM EDT 07/09/2025 11:32 AM EDT Generic External Data Provider LAB BLOOD ORDERAB LES Final Result Performing Organization Address City/[facility]/ZIP Co de Phone Number [facility] [address] [place] [phone] * BI Mammogram Screening Tomosynthesis Bilateral (05/22/2025 9:30 AM EDT) Anatomical Region Laterality Modality Breast Bilateral Mammography 05/22/2025 9:30 AM EDT Narrative 05/25/2025 5:34 PM EDT [facility] [address] [place] [address] [place] [address] Mammography Report Signed Patient: Renata Gusman MR#: [id number] : 1970 Acct:[id number] Age/Sex: 55 / F ADM Date: 05/22/25 Loc: HOSlyMAMMO Attending Dr: Renetta Pedro MD Ordering Physician: Renetta Gómez MD Results: 1Negative Date of Service: 05/22/25 Follow Up: 1 Year From Orig inal Mammogram Procedure(s): MM tomosynthesis screening BI Accession Number(s): [id number] cc: Renetta Gómez MD Reason For Exam: [...] 05/25/25 1731 DD/ 0930 TD/TT: 05/22/25 0950 Automatic Drill Operator: Procedure Note Donotuseinterpreter, Image - 05/25/2025 [facility] [address] [place] [address] Mammography Report Signed Patient: Collin GusmanR#: [id number] : 1970Acct:[id number] Age/Sex: 55 / FADM Date: 05/22/25 Loc: HO.MAMMO Attending Dr: Renetta Pedro MD Ordering Physician: Renetta Gómez MDResults: 1Negative Date of Service: 05/22/25Follow Up: 1 Year From Orig inal Mammogram Procedure(s): MM tomosynthesis screening BI Accession Number(s): [id number] cc: Renetta Gómez MD Reason For Exam: [...] 05/25/25 1731 DD/ 0930 TD/TT: 05/22/25 0950 Automatic Drill Operator: us Renetta Pedro MD IMG BI PROCEDURES Fin al Result * (ABNORMAL) Lipid Panel, Standard (07/12/2024 10:54 AM EDT) Triglycerides 170(H) <150 mg/dL [facility] Comment:Desirable Triglyceri de: less than 150 mg/dLBorderline High Triglyceride 150-199 mg/dLHigh Triglyceride: 200-499 mg/dLVery High Triglyceride: greater than or equal to 5OO mg/dL Cholesterol 179 <200 mg/dL [facility] Comment:Desirable Cholestero l: less than 200 mg/dLBorderline High Cholesterol: 200-239 mg/dLHigh Cholesterol: greater than 239 mg/dL LDL Cholesterol Calculated 109(H) <100 mg/dL [facility] Comment:Desirable LDL: less than 100 mg/dLNear Optimal/Above Optimal LDL: 110- 129 mg/dLBorderline High LDL: 130-159 mg/dLHigh LDL: 160-189 mg/dLVery High LDL: greater than or equal to 190 mg/dL HDL Cholesterol 36(L) >40 mg/dL [facility] Comment:Desirable HDL: great er than 40 mg/dL Note: This HDL assay may give artificially low results in patients with liver disease. 07/12/2024 10:5 4 AM EDT 07/12/2024 10:54 AM EDT us Generic External Data Provider LAB BLOOD ORDERAB LES Final Result [facility] [address] [place] [phone] * HIV Ab/Ag ([facility]) (07/02/2023 8:37 AM EDT) HIV AB/AG Nonreactive Nonreactive [facility] Comment:HIV-1 p24 Ag and/or HIV-1/HIV-2 Ab not detected.A test result that is nonreactive does not exclude thepossibility of exposure to or infection with HIV-1 and/orHIV-2. Nonreactive results in this assay for individualswith prior exposure to HIV-1 and/or HIV-2 may be due toantigen and antibody levels that are below the limit ofdetection of this assay.The [employer] HIV Ag/Ab Combo assay result andsupplemental assay results should be interpreted inconjunction with the patient's clinical presentation,history and other laboratory results. If the results areinconsistent with clinical evidence, additional testing issuggested to confirm the result. 07/02/2023 8:37 AM EDT 07/02/2023 11:24 AM EDT Renetta Pedro MD LAB BLOOD ORDERABLES Final Result Performing Organization Address [facility] Co de Phone Number [facility] [address] [place] [phone] * Hm Colonoscopy (09/15/2022) Colonoscopy Normal Normal Narrative Celia Centeno - 09/15/2022 Repeat Colonoscopy in 5 years due to fair prep or earlier if clinically indicated . See external hospital admission note on 09/15/2022(book marked ) Historical Provider HEALTH MAINTENANCE Final Result * HPV DNA, HIGH RISK, CERVICAL (05/08/2020 3:09 PM EDT) HPV DNA, HIGH RISK, CERVICAL Not Detected NOT DETECTED [facility] Comment: Not Detected High Risk HPV types (16,18,31,33,35,39,45,51,52, 56,58,59,66,68) were not detected. Other HPV types which cause anogenital lesions may be present. The significance of the other types of HPV in malignant processes has not been established. Methodology: Real Time PCR 05/08/2020 3:09 PM EDT Renetta Pedro MD HISTORICAL/NON ORDERA BLE LABS Final Result Performing Organization Address [facility] Co de Phone Number [facility] [address] [place] [address], * THINPREP TIS PAP (05/08/2020 3:09 PM EDT) Clinical Information: SEE COMMENT [facility] Comment:None given COMMENT SEE COMMENT [...] along with historic and current clinical information. Comment: SEE COMMENT [facility] Comment: This Pap test has been evaluated with computer assisted technology. Engraver: SEE COMMENT [facility] Comment: LT, CT(ASCP) CT screening location: [address] [address] Infection SEE [facility] Comment: Shift in vaginal zeina suggestive of bacterial vaginosis. Interpretation/Resu lt: SEE COMMENT [facility] Comment:Negative for intraep ithelial lesion or malignancy. LMP: [facility] Comment:NONE GIVEN Prev. BX: NONE GIVEN [facility] Prev. PAP: SEE COMMENT [facility] Comment:NONE GIVEN SOURCE: SEE COMMENT [facility] Comment:None given Statement Of Adequacy: SEE COMMENT [facility] Comment: Satisfactory for evaluation. Endocervical/transformation zone component present. Age and/or menstrual status not provided 05/08/2020 3:09 PM EDT Renetta Pedro MD LAB PATHOLOGY ORDERAB LES Final Result [facility] [address] [place] [address], from Last 3 Months or Most Recently Relevant to Health Maintenance Additional Health Concerns Active Problems Noted Date Diagnosed Date Help patients manage their type 2 diabetes 08/13 Patient has chronic kidney disease 08/13/2025 Insurance * Guarantor: Renata Gusman Account Type Relation to Patient Date of Phone Billing Address Personal/Family Self 1970 [address] [place] [address] [facility] C[facility] * Guarantor: Renata Gusman Account Type Relation to Patient Date of Phone Billing Address Personal/Family Self [address] [place] [address] * Guarantor: Renata Gusman Account Type Relation to Patient Date of Phone Billing Address Personal/Family Self [address] [place] [address] * Guarantor: Renata Gusman Account Type Relation to Patient Date of Phone Billing Address Personal/Family Self [address] [place] [address] Care Teams Butadiene Converter Helper Relationship Specialty Start Date End Date Renetta Gómez MD [address] [place] [phone] PCP - General Family Medicine 12/29/18 Manuel Suazo Signal EngineerClerical Grader 06/13/25
--- OUTSIDE RECORDS SUMMARY | 2025-08-15 15:34 | XMS_ITS | Encounter Summary ---
Author Organization [employer] Address [address] [place] [address] [address] [place] [address] Care Team Providers Care Program Director Name Role Phone Renetta Gómez MD Primary Care Provide r Encounter Details Date Type Department Care Team (Late st Contact Info) Description 12/02/2022 Orders Only [facility] MED & PEDS [address] [place] [address] Lizbeth Navarro LPN Social History Tobacco Use [...] Description 10/12/2025 1:30 PM EST Office Visit [facility] OPTOMETRY [address] [place] [address] Betina De La Rosa, OD [address] [place] [address] 10/25/2025 2:30 PM EST Procedure Visit [facility] MEDICINE [address] [place] [address] Renetta Gómez MD [address] [place] [address] documented as of this encounter Visit Diagnoses Not on filedocumented in this encounter Care Teams Program Director Relationship Specialty Start Date End Date Renetta Gómez MD [address] [place] [address] PCP - General Family Medicine 12/29/18 Manuel Suazo Garment WorkerTelepathist 06/13/25 documented as of this encounter
--- OUTSIDE RECORDS SUMMARY | 2025-08-15 15:34 | XMS_ITS | Encounter Summary ---
Author Organization [employer] [facility] Address [address] [place] [address] 7 [place] [address] Care Team Providers Care Consulting Systems Engineer Name Role Phone Renetta Gómez MD Primary Care Provide r Reason for Visit * Reason Comments Med Refill Encounter Details Date Type Department Care Team (Late Contact Info) Description 03/24/2023 Refill [facility] MEDICINE [address] [place] [phone] Roxana Quinonez MD [address] [place] [address] Social History Tobacco Use Types Packs/Day Years [...] Department Care Team (Late Contact Info) Description 10/12/2025 1:30 PM EST Office Visit [facility] OPTOMETRY [address] [place] [address] Betina De La Rosa, OD [address] [place] [address] 10/25/2025 2:30 PM EST Procedure Visit [facility] MEDICINE [address] [place] [address] Renetta Gómez MD [address] [place] [address] documented as of this encounter Visit Diagnoses Not on filedocumented in this encounter Care Teams Consulting Systems Engineer Relationship Specialty Start Date End Date Renetta Gómez MD [address] [place] [address] PCP - General Family Medicine 12/29/18 Manuel Suazo Fishing Rod MarkerMillroom Supervisor 06/13/25 documented as of this encounter
--- OUTSIDE RECORDS SUMMARY | 2025-08-15 15:34 | XMS_ITS | Encounter Summary ---
Author Organization [employer] Address [address] [facility] [address] [place] [address] Care Team Providers Care Social Work Coordinator Name Role Phone Renetta Gómez MD Primary Care Provide r Encounter Details Date Type Department Care Team (Late st Contact Info) Description 08/15/2025 Orders Only GENERIC EXTERNAL DATA [...] Description 10/12/2025 1:30 PM EST Office Visit [facility] OPTOMETRY [address] [place] [address] RjBetina bailey, OD [address] [place] [address] 10/25/2025 2:30 PM EST Procedure Visit [facility] MEDICINE [address] [place] [address] Renetta Gómez MD [address] [place] [address] documented as of this encounter Goals Goal Patient Goal Type Associated Problems Recent Progress Patient-Stated? Author Help patients manage their type 2 diabetes Care Plan Help patients manage their type 2 diabetes Humera Martínez MA Patient has chronic kidney disease Care Plan Patient has chronic kidney disease Humera Martínez MA documented as of this encounter Procedures Procedure Name Priority Date/Time Associated Diagnosis Comments GLUCOSE, WHOLE BLOOD Routine 08/15/2025 1:24 PM EST documented in this encounter Results * (ABNORMAL) Glucose, Whole Blood (08/15/2025 1:24 PM EST) Glucose, Whole Blood 149(H) 60 - 115 mg/dL [facility] Comment:METER #: [id number] 0Testing performed in the Endocrinology Department [address] , [address], [place]. 08/15/2025 1:24 PM EST 08/15/2025 1:28 PM EST us Generic External Data Provider LAB BLOOD ORDERAB LES Final Result [facility] [address] [place] [address] [phone] documented in this encounter Visit Diagnoses Not on filedocumented in this encounter Additional Health Concerns Active Problems Noted Date Diagnosed Date Help patients manage their type 2 diabetes 08/13 Patient has chronic kidney disease 08/13/2025 Assessment Noted Time PHQ-9 Depression Total Score: 0 04/16/20 12:12 PM EDT documented as of this encounter Care Teams Social Work Coordinator Relationship Specialty Start Date End Date Renetta Gómez MD [address] [place] [phone] PCP - General Family Medicine 12/29/18 Manuel Suazo Meat Products DemonstratorPlatinum And Palladium Kettle Tender 06/13/25 documented as of this encounter
--- OUTSIDE RECORDS SUMMARY | 2025-08-15 15:34 | XMS_ITS | Encounter Summary ---
Author Organization [employer] Address 75 [facility] 7t [place] [address] Care Team Providers Care Signal Wirer Name Role Phone Renetta Gómez MD Primary Care Provide r Reason for Visit * Reason Onset Date Comments PT1 05/24/2024 Encounter Details Date Type Department Care Team ([facility] st Contact Info) Description 05/24/2024 Telephone [facility] MEDICINE [address] [place], [place] [phone] Renetta Gómez MD 230 [place] [address] PT1 Social History Tobacco Use Types Packs/Day [...] name: Ed Cowart DPM Facility Address: [address] [place] [address] [address], [place] [address] Escort needed: Y/N: Yes Do you have a wheelchair: Y/N: No If yes- Manual or electric: Visits: 4-5 visits a year documented in this encounter Plan of Treatment Upcoming Encounters Date Type Department Care Team (Late st Contact Info) Description 10/12/2025 1:30 PM EST Office Visit [facility] OPTOMETRY [address] [place] [address] Rj, Betina, OD 230 [place] [address] 10/25/2025 2:30 PM EST Procedure Visit [facility] MEDICINE 230 [place] [address] Renetta Gómez MD 230 [place] [address] documented as of this encounter Visit Diagnoses Not on filedocumented in this encounter Additional Health Concerns Assessment Noted Time PHQ-9 Depression Total Score: 0 04/06/20 23 10:11 AM EDT documented as of this encounter Care Teams Signal Wirer Relationship Specialty Start Date End Date Renetta Gómez MD 230 [place] [address] PCP - General Family Medicine 12/29/18 Manuel Suazo Precinct Police CaptainReshipping Clerk 06/13/25 documented as of this encounter
--- OUTSIDE RECORDS SUMMARY | 2025-08-15 15:34 | XMS_ITS | Encounter Summary ---
Author Organization [employer] Address 75 [facility] 7t [place] [address] Care Team Providers Care Gift Shop Clerk Name Role Phone Renetta Gómez MD Primary Care Provide r Reason for Visit * Reason Onset Date Comments oct recall 08/13/2025 Encounter Details Date Type Department Care Team ([facility] st Contact Info) Description 08/13/2025 Telephone [facility] MEDICINE 230 [place], [place] [phone] Renetta Gómez MD 230 [place] [address] oct recall Social History Tobacco Use Types Packs/Day Years [...] encounter Miscellaneous Notes * Telephone Encounter - Humera Mcarthur MA - 08/13/2025 11:41 AM EST Telephone call to patient to schedule the following recall: Visit type: PAP Appointment notes: PAP Patient agree to appointment on 10/25/2025 at 2:30 PM with Jessica. documented in this encounter Plan of Treatment Upcoming Encounters Date Type Department Care Team (Late st Contact Info) Description 10/12/2025 1:30 PM EST Office Visit [facility] OPTOMETRY [address] [place] [address] Betina De La Rosa, OD 230 [place] [address] 10/25/2025 2:30 PM EST Procedure Visit [facility] MEDICINE [address] [place] [address] Renetta Gómez MD [address] [place] [address] documented as of this encounter Goals Goal Patient Goal Type Associated Problems Recent Progress Patient-Stated? Author Help patients manage their type 2 diabetes Care Plan Help patients manage their type 2 diabetes Humera Martínez MA Patient has chronic kidney disease Care Plan Patient has chronic kidney disease Humera Martínez MA documented as of this encounter Visit Diagnoses Not on filedocumented in this encounter Additional Health Concerns Active Problems Noted Date Diagnosed Date Help patients manage their type 2 diabetes 08/13 Patient has chronic kidney disease 08/13/2025 Assessment Noted Time PHQ-9 Depression Total Score: 0 04/16/20 25 12:12 PM EDT documented as of this encounter Care Teams Gift Shop Clerk Relationship Specialty Start Date End Date Renetta Gómez MD [address] [place] [address] PCP - General Family Medicine 12/29/18 Manuel Suazo Striper Spray GunConcessions Manager 06/13/25 documented as of this encounter
--- OUTSIDE RECORDS SUMMARY | 2025-08-15 15:34 | XMS_ITS | Clinical Summary ---
Author Organization 175 [facility] Address 175 [place] [address] Phone Care Team Providers Care Precision Thread Grinder Operator Name Role Phone Renetta Gómez MD Primary Care Provide r Allergies Active Allergy Reactions Criticality Noted Date Comments Acetaminophen-Codeine 06/13/2024 Shellfish Derived 06/13/2024 Medications clotrimazole (LOTRIMIN) 1 % cream Apply to skin and toenails daily for 12 weeks 4 Active ketoconazole (NIZORAL) 2 % cream Apply topically 1 (one) time each day. 30 g 2 5 Active atorvastatin (LIPITOR) 20 mg tablet Take 1 tablet (20 mg total) by mouth 1 (one) time each day. Active albuterol HFA (PROAIR HFA ; PROVENTIL HFA ; VENTOLIN HFA) 90 mcg/actuation inhaler Inhale 2 puffs by mouth every 6 hours as needed. 5 026 Active bacitracin (bacitracin zinc) 500 unit/gram ointment APPLY TO THE AFFECTED AREA two (2) times a day 4 Active bisacodyL (DULCOLAX) 5 mg EC tablet Take 2 tablets (10 mg total) by mouth. at bedtime Active blood-glucose sensor (Dexcom G7 Sensor) CHANGE EVERY 10 DAYS 5 Active busPIRone (BUSPAR) 15 mg tablet take 1 tablet by mouth two (2) times a day Active clonazePAM (KlonoPIN) 0.5 mg tablet take 1 tablet by mouth two (2) times a day as needed 5 Active dulaglutide (TRULICITY SUBQ) INJECT 4.5 mg SUBCUTANEOUSLY EVERY WEEK 4 Active EPINEPHrine (EPIPEN) 0.3 mg/0.3 mL injection Inject 0.3 mL (0.3 mg total) as directed. 4 Active escitalopram (LEXAPRO) 20 mg tablet TAKE 1 TABLET BY MOUTH EVERY MORNING FOR depresion AND ANXIETY Active fluticasone propionate (FLONASE) 50 mcg/actuation nasal spray Administer 2 sprays into each nostril daily. 4 Active gabapentin (NEURONTIN) 300 mg capsule Take 1 capsule (300 mg total) by mouth 1 (one) time each day. 5 Active glucagon (Baqsimi) 3 mg/actuation nasal spray SPRAY ONCE IN 1 NOSE two (2) times a day NEEDED FOR low glucose. USE 3 (THREE) TIMES A DAY FOR NAUSEA OR FOR VOMITING. maximum 6mg/day 4 Active hydrOXYzine HCL (ATARAX) 25 mg tablet take 1 tablet by mouth two (2) times a day Active insulin lispro 100 unit/mL injection INJECT 32 UNITS SUBCUTANEOUSLY BEFORE BREAKFAST, 32 UNITS BEFORE LUNCH AND 26 UNITS BEFORE DINNER Active ketorolac (ACULAR) 0.5 % ophthalmic solution INSTILL 1 DROP IN THE LEFT EYE 3 (THREE) TIMES A DAY 5 Active levothyroxine (SYNTHROID, LEVOTHROID) 25 mcg tablet Take 1 tablet (25 mcg total) by mouth. 5 Active lisinopriL (PRINIVIL,ZEST RIL) 10 mg tablet Take 1 tablet (10 mg total) by mouth 1 (one) time each day. 5 Active nitrofurantoin , macrocrystal-m onohydrate, (MACROBID) 100 mg capsule take 1 capsule by mouth two (2) times a day for 7 days 5 Active omeprazole (PriLOSEC) [address] capsule Take 1 capsule (40 mg total) by mouth 1 (one) time each day in the morning. Active Ozempic 1 mg/dose (4 mg/3 mL) injection pen INJECT 1mg SUBCUTANEOUSLY EACH WEEK 4 Active traZODone (DESYREL) 100 mg tablet Take 2 tablets (200 mg total) by mouth. at bedtime Active ketoconazole (NIZORAL) 2 % cream Apply topically 1 (one) time each day. 30 g 2 Active Active Problems Problem Noted Date Diagnosed Date Onychomycosis 06/13/2024 Pruritus 06/13/2024 Right hand pain 06/13/2024 T2DM (type 2 diabetes mellitus) ([facility] V24, [facility] V28) 06/13/2024 Encounters Date Type Department Care Team Description 07/19/2025 2:00 PM EST Office Visit Orthopedic Surgery [facility] [address] [phone] Ed Cowart DPM Dermatophytosis of nail (Primary Dx); Diabetic mononeuropathy simplex ([facility] V24, [facility] V28); Acquired hammer toe of right foot; Hammer toe of left foot; Type II diabetes mellitus with peripheral circulatory disorder ([facility] V24, [facility] V28) from Last 3 Months Social History [...] Care Team (Late st Contact Info) Description 10/18/2025 1:30 PM EST Office Visit Orthopedic Surgery [facility] [address] [phone] Ed Cowart DPM [address] [phone] Health Maintenance Due Date Last [...] exists Diabetes: Blood Sugar Control Test (HGBA1C) 01/07/2026 07/09/2025, 04/16/2025, 10/05/2024 Cholesterol Screening (Lipid Panel) 07/12/2029 [...] patient's age to complete this topic Insurance * Guarantor: Nicole Howard Account Type Relation to Patient Date of Phone Billing Address Personal/Family Self 1970 [address], [address] [place] [address] MEDICAID - [place] * Guarantor: Nicole Howard Account Type Relation to Patient Date of Phone Billing Address Personal/Family Self 1970 [address], [address] [place] [address] Care Teams Precision Thread Grinder Operator Relationship Specialty Start Date End Date Renetta Gómez MD [address] [place] [phone] PCP - General 08/25/23
--- OUTSIDE RECORDS SUMMARY | 2025-08-15 15:34 | XMS_ITS | Encounter Summary ---
Author Organization [employer] Address 75 [facility] 7t [place] [address] Care Team Providers Care Machine Mover Name Role Phone Renetta Gómez MD Primary Care Provide r Reason for Visit * Reason Comments Med Refill Encounter Details Date Type Department Care Team (Late st Contact Info) Description 07/29/2024 Refill [facility] MEDICINE 230 [place], [place] [phone] Renetta Gómez MD 230 [place] [address] Pruritus Social History Tobacco Use Types Packs/Day [...] t he electric, gas, oil or water [employer] threatened to shut off services in your [...] Office Visit [facility] OPTOMETRY [address] [place] [address] RjBetina bailey, OD 230 [place] [address] 10/25/2025 2:30 PM EST Procedure Visit [facility] MEDICINE 230 [place] [address] Renetta Gómez MD [address] [place] [address] documented as of this encounter Visit Diagnoses Diagnosis Pruritus Unspecified pruritic disorder documented in this encounter Additional Health Concerns Assessment Noted Time PHQ-9 Depression Total Score: 0 04/06/20 23 10:11 AM EDT documented as of this encounter Care Teams Machine Mover Relationship Specialty Start Date End Date Renetta Gómez MD [address] [place] [address] PCP - General Family Medicine 12/29/18 Manuel Suazo Ion Exchange OperatorShip Unloader 06/13/25 documented as of this encounter
--- OUTSIDE RECORDS SUMMARY | 2025-08-15 15:34 | XMS_ITS | Encounter Summary ---
Author Organization [employer] Address 75 [facility] 7t [place] [address] Care Team Providers Care Vacation Planner Name Role Phone Renetta Gómez MD Primary Care Provide r Reason for Visit * Reason Onset Date Comments PT1 03/21/2024 Encounter Details Date Type Department Care Team ([facility] st Contact Info) Description 03/21/2024 Telephone [facility] MEDICINE 230 [place], [place] [phone] Renetta Gómez MD [address] [place] [address] PT1 Social History Tobacco Use Types Packs/Day [...] facility name: Dr.Allison Bennett Facility Address: [address] [place], [place] Escort needed: Y/N: Yes Do you have a wheelchair: no If yes- Manual or electric: no Visits: 4 Patient calling requesting PT1 Home Address verified: Y/N: Yes Provider name or facility name: Dr.Corina Leon Facility Address: [address] [place], [place] Escort needed: Y/N: Yes Do you have a wheelchair: Y/N: No If yes- Manual or electric: no Visits: 4 Patient calling requesting PT1 Home Address verified: Y/N: Yes Provider name or facility name: Dr. Ele Esparza Facility Address: [address] [place], [place] Escort needed: Y/N: Yes Do you have a wheelchair: Y/N: No If yes- Manual or electric: no Visits: 4 Patient calling requesting PT1 Home Address verified: Y/N: No Provider name or facility name: Dr. Margie Hugo Facility Address: [address] [place], [place] Escort needed: Y/N: Yes Do you have a wheelchair: Y/N: No If yes- Manual or electric: no Visits: 4 * Telephone Encounter - Emily Rodriguez - 03/21/2024 12:28 PM EDT Patient calling requesting PT1 Home Address verified: Y/N: Yes Provider name or facility name: [facility] Facility Address: 230 [facility], Escort needed: Y/N: Yes Do you have a wheelchair: Y/N: No If yes- Manual or electric: NO Visits: ALL FUTURE APPTS documented in this encounter Plan of Treatment Upcoming Encounters Date Type Department Care Team (Late st Contact Info) Description 10/12/2025 1:30 PM EST Office Visit [facility] OPTOMETRY [address] [place] [address] Rj, Betina, OD 230 [place] [address] 10/25/2025 2:30 PM EST Procedure Visit [facility] MEDICINE 230 [place] [address] Renetta Gómez MD 230 [place] [address] documented as of this encounter Visit Diagnoses Not on filedocumented in this encounter Additional Health Concerns Assessment Noted Time PHQ-9 Depression Total Score: 0 04/06/20 23 10:11 AM EDT documented as of this encounter Care Teams Vacation Planner Relationship Specialty Start Date End Date Renetta Gómez MD [address] [place], [place] [phone] PCP - General Family Medicine 12/29/18 Manuel Suazo Sales OutfitterSoaking Pit Operator 06/13/25 documented as of this encounter
--- OUTSIDE RECORDS SUMMARY | 2025-08-15 15:34 | XMS_ITS | Encounter Summary ---
Author Organization [employer] Address 75 [facility] 7t [place] [address] Care Team Providers Care Chore Worker Name Role Phone Renetta Gómez MD Primary Care Provide r Encounter Details Date Type Department Care Team (Late Contact Info) Description 06/16/2023 Orders Only [facility] CHC MED & PEDS [address] [place], [place] [phone] Lizbeth Navarro LPN Social History Tobacco Use [...] Description 10/12/2025 1:30 PM EST Office Visit [facility] OPTOMETRY [address] [place] [address] Betina De La Rosa, OD 230 [place] [address] 10/25/2025 2:30 PM EST Procedure Visit [facility] MEDICINE 230 [place] [address] Renetta Gómez MD 230 [place], [place] [phone] documented as of this encounter Visit Diagnoses Not on filedocumented in this encounter Additional Health Concerns Assessment Noted Time PHQ-9 Depression Total Score: 0 04/06/20 23 10:11 AM EDT documented as of this encounter Care Teams Chore Worker Relationship Specialty Start Date End Date Renetta Gómez MD 230 [facility] [place] [address] PCP - General Family Medicine 12/29/18 Manuel Suazo Campus MonitorHvac Design Mechanical Engineer 06/13/25 documented as of this encounter
--- OUTSIDE RECORDS SUMMARY | 2025-08-15 15:34 | XMS_ITS | Encounter Summary ---
Author Organization [employer] Address [address] [place] [address] 7t [place] [address] Care Team Providers Care Blooming Mill Supervisor Name Role Phone Renetta Gómez MD Primary Care Provide r Reason for Visit * Reason Comments Med Refill Encounter Details Date Type Department Care Team (Late Contact Info) Description 12/02/2022 Refill [facility] CHC MED & PEDS [address] [place], [place] [phone] Fannie Ceron MD 230 [place] [address] Type 2 diabetes mellitus without complication, unspecified whether buttermaker helper insulin use ([facility]) Social History Tobacco Use Types Packs/Day Years [...] Description 10/12/2025 1:30 PM EST Office Visit [facility] OPTOMETRY [address] [place], [place] [phone] Betina De La Rosa, OD 230 [place] [address] 10/25/2025 2:30 PM EST Procedure Visit [facility] MEDICINE 230 [place] [address] Renetta Gómez MD [address] [place] [address] documented as of this encounter Visit Diagnoses Diagnosis Type 2 diabetes mellitus without complication, unspecified whether buttermaker helper insulin use documented in this encounter Care Teams Blooming Mill Supervisor Relationship Specialty Start Date End Date Renetta Gómez MD [address] [place] [address] PCP - General Family Medicine 12/29/18 Manuel Suazo Is/It Project ManagerSteamfitter 06/13/25 documented as of this encounter
--- OUTSIDE RECORDS SUMMARY | 2025-08-15 15:34 | XMS_ITS | Encounter Summary ---
Author Organization [employer] Address 75 [facility] 7t [place] [address] Care Team Providers Care Pug Mill Operator Name Role Phone Renetta Gómez MD Primary Care Provide r Reason for Visit * Reason Onset Date Comments PT-1 11/08/2024 Encounter Details Date Type Department Care Team ([facility] st Contact Info) Description 11/08/2024 Telephone [facility] MEDICINE 230 [place], [place] [phone] Renetta Gómez MD 230 [place] [address] PT-1 Social History Tobacco Use Types Packs/Day [...] Y/N: Yes Provider name or facility name: [address] [place] [address] Dr. Wolfe 203 Escort needed: Y/N: No Do you have a wheelchair: Y/N: No If yes- Manual or electric: Visits: (4) ( monthly) documented in this encounter Plan of Treatment Upcoming Encounters Date Type Department Care Team (Late st Contact Info) Description 10/12/2025 1:30 PM EST Office Visit [facility] OPTOMETRY [address] [place] [address] Rj, Betina, OD 230 [place] [address] 10/25/2025 2:30 PM EST Procedure Visit [facility] MEDICINE [address] [place] [address] Renetta Gómez MD [address] [place] [address] documented as of this encounter Visit Diagnoses Not on filedocumented in this encounter Additional Health Concerns Assessment Noted Time PHQ-9 Depression Total Score: 0 04/06/20 10:11 AM EDT documented as of this encounter Care Teams Pug Mill Operator Relationship Specialty Start Date End Date Renetta Gómez MD [address] [place] [address] PCP - General Family Medicine 12/29/18 Manuel Suazo Fixed Wing Aircraft Crew ChiefAgricultural Commodities Inspector 06/13/25 documented as of this encounter
--- OUTSIDE RECORDS SUMMARY | 2025-08-15 15:34 | XMS_ITS | Encounter Summary ---
Author Organization [employer] Address [address] [place] [address] 7t [place] [address] Care Team Providers Care Vacuum Furnace Operator Name Role Phone Renetta Gómez MD Primary Care Provide r Encounter Details Date Type Department Care Team (Late st Contact Info) Description 11/10/2022 Orders Only [facility] CHC MED & PEDS [address] [place] [address] Lizbeth Navarro LPN Social History Tobacco Use [...] Description 10/12/2025 1:30 PM EST Office Visit [facility] OPTOMETRY [address] [place] [address] Betina De La Rosa, OD 230 [place] [address] 10/25/2025 2:30 PM EST Procedure Visit [facility] MEDICINE [address] [place] [address] Renetta Gómez MD 230 [place] [address] documented as of this encounter Visit Diagnoses Not on filedocumented in this encounter Care Teams Vacuum Furnace Operator Relationship Specialty Start Date End Date Renetta Gómez MD 230 [place] [address] PCP - General Family Medicine 12/29/18 Manuel Suazo PlanisherMold Capper Helper 06/13/25 documented as of this encounter
--- OUTSIDE RECORDS SUMMARY | 2025-08-15 15:34 | XMS_ITS | Encounter Summary ---
Author Organization [employer] Address 75 [facility] 7t [place] [address] Care Team Providers Care Cd Technician Name Role Phone Renetta Gómez MD Primary Care Provide r Reason for Visit * Reason Comments Med Refill Encounter Details Date Type Department Care Team (Late st Contact Info) Description 09/25/2023 Refill [facility] 230 [place], [place] [phone] Renetta Gómez MD 230 [place], [place] [phone] Hypothyroidism, unspecified type Social History Tobacco Use [...] Description 10/12/2025 1:30 PM EST Office Visit [facility] OPTOMETRY [address] [place] [address] Betina De La Rosa, OD 230 [place] [address] 10/25/2025 2:30 PM EST Procedure Visit [facility] MEDICINE 230 [place] [address] Renetta Gómez MD 230 [place] [address] documented as of this encounter Visit Diagnoses Diagnosis Hypothyroidism, unspecified type documented in this encounter Additional Health Concerns Assessment Noted Time PHQ-9 Depression Total Score: 0 04/06/20 23 10:11 AM EDT documented as of this encounter Care Teams Cd Technician Relationship Specialty Start Date End Date Renetta Gómez MD 230 [place] [address] PCP - General Family Medicine 12/29/18 Manuel Suazo Pigskin TrimmerAd Operations Intern 06/13/25 documented as of this encounter
--- OUTSIDE RECORDS SUMMARY | 2025-08-15 15:34 | XMS_ITS | Encounter Summary ---
Author Organization [employer] Address 75 [facility] 7t [place] [address] Care Team Providers Care Fisheries Technician Name Role Phone Renetta Gómez MD Primary Care Provide r Reason for Visit * Reason Onset Date Comments pt1 06/21/2025 Encounter Details Date Type Department Care Team ([facility] st Contact Info) Description 06/21/2025 Telephone [facility] MEDICINE 230 [place], [place] [phone] Renetta Gómez MD 230 [place] [address] pt1 Social History Tobacco Use Types Packs/Day [...] [facility] [address] [place] [address] Escort needed: Y/N: Yes Do you have a wheelchair: Y/N: No If yes- Manual or electric: \ Visits: 4x a year documented in this encounter Plan of Treatment Upcoming Encounters Date Type Department Care Team (Late st Contact Info) Description 10/12/2025 1:30 PM EST Office Visit [facility] OPTOMETRY [address] [place] [address] Rj, Betina, OD 230 [place] [address] 10/25/2025 2:30 PM EST Procedure Visit [facility] MEDICINE [address] [place] [address] Renetta Gómez MD 230 [place], [place] [phone] documented as of this encounter Visit Diagnoses Not on filedocumented in this encounter Additional Health Concerns Assessment Noted Time PHQ-9 Depression Total Score: 0 04/16/20 25 12:12 PM EDT documented as of this encounter Care Teams Fisheries Technician Relationship Specialty Start Date End Date Renetta Gómez MD 230 [place] [address] PCP - General Family Medicine 12/29/18 Manuel Suazo Strap Folding Machine OperatorHat Blocking Operator 06/13/25 documented as of this encounter
== END 2025-08-15 13:40 | disposition home or self-care (01) ==
LOC: HO.ENCR 13:04
PROVIDERS: PCP Internal Medicine; Visit Provider Internal Medicine
DX: E11.22 Type 2 diabetes mellitus with diabetic chronic kidney disease (principal); N18.30 Chronic kidney disease, stage 3 unspecified; Z79.4 Long term (current) use of insulin

== ENCOUNTER → 2025-08-15 13:04 | Outpatient (BNVA) | payer MEDICAID, SELFPAY | PROVIDERS: PCP Internal Medicine; Visit Provider Internal Medicine | DX: E11.22 Type 2 diabetes mellitus with diabetic chronic kidney disease (principal); N18.30 Chronic kidney disease, stage 3 unspecified; Z79.4 Long term (current) use of insulin | CPT/HCPCS: 82947; 99212 ==

== ENCOUNTER 2025-08-31 15:39 | Outpatient (AMB) | payer MEDICAID, SELFPAY ==
[2025-08-31 15:40] VITALS: BP 92/59; PULSE 74; BMI 23.8
--- NOTE | 2025-08-31 15:40 | A.OFFVIS_ITS ---
Vital Signs 08/31/25 15:40 Height 5 ft 4 in Weight 138 lb 14.259 oz BMI 23.8 BP 92/59 L Blood Pressure Location Lt brachial Position Sitting Pulse 74 Intake Visit Reasons: g Intake Note: Renata presents in the office as a follow up. CC: She states that she is having concerns with her relux. States that she has issues with her bowels and was having constipation where she had blood in the stools. Inspector And Tester Required: Yes Inspector And Tester Name: [id number] Blanca Allergies seafood Allergy (Severe, Verified 08/31/25 15:41) throat closes codeine (Tylenol-Codeine) Allergy (Intermediate, Verified 08/31/25 15:41) rash HPI HPI g: Details: LAST VISIT Liver cirrhosis Constipation GERD (gastroesophageal reflux disease) Transaminitis Plan Patient will continue taking omeprazole. Avoid dietary triggers and late night snacking. Staying upright for minimum 3 hours after meals discussed with patient. Patient will start taking Dulcolax daily. Increase fluid intake and activity to promote better bowel motility. Will recheck liver enzymes, liver fibrosis panel and ultrasound with liver elastography. Patient will follow-up in 4 months, sooner on as needed basis. She is agreeable to this plan and verbalizes understanding of instructions. She was given the opportunity to ask questions and all questions answered. ? Thank you for allowing me to participate in her care Orders Liver Fibrosis Pnl Today K76.0 US abdomen nunez w elastography Today K76.0 Liver Panel Today R74.01 New bisacodyl (Dulcolax (bisacodyl)) 10 mg (2 x 5 mg) PO BEDTIME 180 tabs 4RF omeprazole 40 mg PO QAM 90 caps 3RF TODAY'S VISIT Patient is here today for follow-up and to discuss lab and ultrasound results. Although liver fibrosis she panel shows F4 the elastography looks better. Patient lost another 35 lb since January. She reports that she is feeling better although she states that she is constipated. She has been on Ozempic for the past couple years and has been doing well. Her symptoms of acid reflux are suppressed. Patient is taking omeprazole every morning and states that she is doing well. Denies dyspepsia, dysphagia or odynophagia. Patient however reports that despite eating prunes and drinking prune juice along with that Dulcolax patient still has no bowel movement for 3-4 days. Patient reports that she has to strain and occasionally she will have blood after a bowel movement when wiping [facility] Medical History Carpal tunnel syndrome, right Liver cirrhosis Hyperlipidemia Hepatitis C Elevated liver enzymes Hypothyroidism Depression Fibromyalgia Asthma Type 2 diabetes mellitus with diabetic polyneuropathy Type 2 diabetes mellitus with hyperglycemia, with long-term current use of insulin custodial current use of insulin Chronic kidney disease, stage 3 Surgical History Hx of elbow surgery Hx of colonoscopy Hx of hand surgery Hx of biopsy H/O oral surgery Family History Mother Diabetes Asthma Kidney stones HTN (hypertension) Brother Diabetes Father Bloodstream infection Social History Household Members: Spouse Are you a primary progressive care unit registered nurse to a significant other at home: No Do you presently have visiting nurse or other home services: No Alcohol intake: current Alcohol intake frequency: does not drink Patient Tobacco Use Status: Never used Tobacco Current occupational status: disabled Review of Systems Const Denies weight gain and Denies weight loss ENT Reports no additional complaints, Denies dysphagia and Denies odynophagia Card Reports no additional complaints Resp Reports no additional complaints GI Reports abdominal pain, Denies belching, Denies melena, Reports bloating, Denies change in bowel habits, Reports constipation, Denies dysphagia, Denies excessive flatus, Denies dyspepsia, Reports heartburn, Denies diarrhea, Denies loose stools, Denies nausea, Denies odynophagia and Denies vomiting Reports no additional complaints Musc Reports no additional complaints Neuro Reports no additional complaints Psych Reports no additional complaints Endo Reports no additional complaints Physical Exam Vital Signs: Last Vital Signs Pulse 74 08/31/25 15:40 BP 92/59 L 08/31/25 15:40 BMI result Body Mass Index 23.8 Const General: healthy appearing and no acute distress Nutritional Appearance: obese Orientation/consciousness: patient oriented x3 Resp Effort & Inspection: normal respiratory effort, able to speak in complete sentences, no tracheal deviation and symmetric chest movement Auscultation: clear to auscultation bilaterally Cardio Rate: regular rate GI Inspection: Yes normal to inspection, No distended and Yes obesity Palpation (GI): Soft to palpation, not firm, nontender and No hepatosplenomegaly present Auscultation: normal bowel sounds General: Yes no CVA tenderness Back/Spine/Pelvis Back: no CVA tenderness Skin General skin exam: elasticity normal, turgor normal and dry skin Neuro General: patient oriented x3 Psych Appearance: grossly normal Mental Status: mental status grossly normal Results Reviewed Results Reviewed: ULTRASOUND WITH LIVER ELASTOGRAPHY FINDINGS: Liver: The right lobe of the liver measures 12.6 cm in size. The left lobe of the liver measures 11.6 cm in size. The liver demonstrates coarsened, increased echotexture, consistent with steatosis. No focal mass or intrahepatic biliary ductal dilatation is identified. There is normal hepatopedal flow in the portal vein. Ultrasound elastography of the liver was performed with 10 separate measurements of the liver parenchyma with the patient in the supine position. Measurements were obtained approximately 2 cm below My's capsule and perpendicular to the capsule. The median shear wave velocity is 1.27 m/s (previously 1.36 m/s). The interquartile range/median (IQR/median) is 0.37. Gallbladder and biliary tree: There are multiple shadowing calculi in the gallbladder. There is no wall thickening or pericholecystic fluid. There is no sonographic Hillman sign. The common bile duct is normal in caliber measuring 2 mm. Right Kidney: The right kidney measures 11.0 cm in length. There is mild fullness of the right renal collecting system. No masses or calculi are identified. Pancreas: The pancreatic head, neck, and body are unremarkable. The pancreatic tail is obscured by bowel gas. Abdominal aorta and inferior vena cava: The visualized portions of the abdominal aorta and inferior vena cava are normal in caliber. There is no free fluid in the right upper quadrant. US/US abdomen nunez w elastography IMPRESSION: Hepatic steatosis. Cholelithiasis. The median shear wave velocity in the liver is 1.27 m/s, corresponding to a median liver stiffness of 4.94 kPa. The IQR/median value is 0.37. This is indicative of a poor quality data set, and the estimated liver stiffness may be unreliable. Findings are indicative of a normal elastography value with a low likelihood of severe fibrosis or cirrhosis. Assessment & Plan Assessment & Plan (1) Liver cirrhosis: Code(s): K74.60 - Unspecified cirrhosis of liver Category: Medical Qualifiers: Hepatic cirrhosis type: other cirrhosis Qualified Code(s): K74.69 - Other cirrhosis of liver (2) Constipation: Code(s): K59.00 - Constipation, unspecified Category: Medical Qualifiers: Constipation type: chronic idiopathic constipation Qualified Code(s): K59.04 - Chronic idiopathic constipation (3) Gastroesophageal reflux disease: Code(s): K21.9 - Gastro-esophageal reflux disease without esophagitis Qualifiers: Esophagitis presence: esophagitis presence not specified Qualified Code(s): K21.9 - Gastro-esophageal reflux disease without esophagitis (4) Elevated transaminase measurement: Code(s): R74.01 - Elevation of levels of liver transaminase levels Plan Patient will continue omeprazole daily. Avoid dietary triggers in late night snacking. Staying upright for minimal 3 hours after meals discussed with patient. Low-fat, low carb, low-salt and high-protein diet recommended. Patient will start taking Linzess and fiber. Will repeat liver panel and platelets and score FIB-4. Liver elastography improved. Patient will follow-up in the office in 6 months, sooner on as needed basis. She is agreeable to this plan and verbalizes understanding of instructions. She was given the o pportunity to ask questions and all questions answered. Thank you for allowing me to participate in her care Orders: Orders Platelet Count Today R74.01 - Elevation of levels of liver transaminase levels Liver Panel Today R74.01 - Elevation of levels of liver transaminase levels Medications: New linaclotide (Linzess) 145 mcg PO DAILY 30 caps 4RF K59.04 - Chronic idiopathic constipation methylcellulose (laxative) (Citrucel) take it with full glass of water 500 mg PO DAILY 90 tabs 2RF K59.00 - Constipation, unspecified Refilled omeprazole 40 mg PO QAM 90 caps 3RF Coding Level of Care Code Est Pt Level 4 (78799) Add On Problem Visit Only Diagnoses Other cirrhosis of liver K74.69 Hepatic cirrhosis type: other cirrhosis Chronic idiopathic constipation K59.04 Constipation type: chronic idiopathic constipation Gastroesophageal reflux disease, unspecified whether esophagitis present K21.9 Esophagitis presence: esophagitis presence not specified Elevated transaminase measurement R74.01 Time Spent (min) 40 Comment 25 minutes spent with patient and additional 15 minutes spent reviewing her records
--- OUTSIDE RECORDS SUMMARY | 2025-08-31 16:37 | XMS_ITS | Encounter Summary ---
Author Organization [employer] Address [address] [facility] 7t [place] [address] Care Team Providers Care Human Services Assistant Name Role Phone Renetta Gómez MD Primary Care Provide r Reason for Visit * Reason Onset Date Comments PT1 03/21/2024 Encounter Details Date Type Department Care Team ([facility] st Contact Info) Description 03/21/2024 Telephone [facility] [address] [place], [place] [phone] Renetta Gómez MD [address] [place] [address] PT1 Social History Tobacco Use Types Packs/Day [...] facility name: Dr.Allison Bennett Facility Address: [address], [place] Escort needed: Y/N: Yes Do you have a wheelchair: no If yes- Manual or electric: no Visits: 4 Patient calling requesting PT1 Home Address verified: Y/N: Yes Provider name or facility name: Dr.Corina Leon Facility Address: [address], [place] Escort needed: Y/N: Yes Do you have a wheelchair: Y/N: No If yes- Manual or electric: no Visits: 4 Patient calling requesting PT1 Home Address verified: Y/N: Yes Provider name or facility name: Dr. Ele Esparza Facility Address: [address], [place] Escort needed: Y/N: Yes Do you have a wheelchair: Y/N: No If yes- Manual or electric: no Visits: 4 Patient calling requesting PT1 Home Address verified: Y/N: No Provider name or facility name: Dr. Margie Hugo Facility Address: [address] [place], [place] Escort needed: Y/N: Yes Do you have a wheelchair: Y/N: No If yes- Manual or electric: no Visits: 4 * Telephone Encounter - Emily Rodriguez - 03/21/2024 12:28 PM EDT Patient calling requesting PT1 Home Address verified: Y/N: Yes Provider name or facility name: [facility] Facility Address: [address] [facility], Escort needed: Y/N: Yes Do you have a wheelchair: Y/N: No If yes- Manual or electric: NO Visits: ALL FUTURE APPTS documented in this encounter Plan of Treatment Upcoming Encounters Date Type Department Care Team (Late st Contact Info) Description 10/12/2025 1:30 PM EST Office Visit [facility] [address] [place] [address] Rj, Betina, OD [address] [place] [address] 10/25/2025 2:30 PM EST Procedure Visit [facility] [address] [place] [address] Renetta Gómez MD [address] [place] [address] documented as of this encounter Visit Diagnoses Not on filedocumented in this encounter Additional Health Concerns Assessment Noted Time PHQ-9 Depression Total Score: 0 04/06/20 23 10:11 AM EDT documented as of this encounter Care Teams Human Services Assistant Relationship Specialty Start Date End Date Renetta Gómez MD [address] [place], [place] [phone] PCP - General Family Medicine 12/29/18 Manuel Suazo Saturation Equipment OperatorResearch Mechanic 06/13/25 documented as of this encounter
--- OUTSIDE RECORDS SUMMARY | 2025-08-31 16:37 | XMS_ITS | Encounter Summary ---
Author Organization [employer] Address [address] [facility] 7t [place] [address] Care Team Providers Care Mild Disabilities Teacher Name Role Phone Renetta Gómez MD Primary Care Provide r Reason for Visit * Reason Onset Date Comments PT-1 11/08/2024 Encounter Details Date Type Department Care Team ([facility] st Contact Info) Description 11/08/2024 Telephone [facility] [address] [place], [place] [phone] Renetta Gómez MD [address] [place] [address] PT-1 Social History Tobacco Use Types Packs/Day [...] Y/N: Yes Provider name or facility name: [address] [place] [address] Dr. Wolfe 203 Escort needed: Y/N: No Do you have a wheelchair: Y/N: No If yes- Manual or electric: Visits: (4) ( monthly) documented in this encounter Plan of Treatment Upcoming Encounters Date Type Department Care Team (Late st Contact Info) Description 10/12/2025 1:30 PM EST Office Visit [facility] OPT[facility] [address] [place] [address] Rj, Betina, OD [address] [place] [address] 10/25/2025 2:30 PM EST Procedure Visit [facility] [address] [place] [address] Renetta Gómez MD [address] [place] [address] documented as of this encounter Visit Diagnoses Not on filedocumented in this encounter Additional Health Concerns Assessment Noted Time PHQ-9 Depression Total Score: 0 04/06/20 10:11 AM EDT documented as of this encounter Care Teams Mild Disabilities Teacher Relationship Specialty Start Date End Date Renetta Gómez MD [address] [place] [address] PCP - General Family Medicine 12/29/18 Manuel Suazo Retail Store AssociateFront Desk Supervisor 06/13/25 documented as of this encounter
--- OUTSIDE RECORDS SUMMARY | 2025-08-31 16:37 | XMS_ITS | Encounter Summary ---
Author Organization [email or web address] Address [address] [facility] 7t [place] [address] Care Team Providers Care Classroom Assistant Name Role Phone Renetta Gómez MD Primary Care Provide r Reason for Visit * Reason Onset Date Comments PT1 05/24/2024 Encounter Details Date Type Department Care Team ([facility] st Contact Info) Description 05/24/2024 Telephone [facility] [address] [place], [place] [phone] Renetta Gómez MD [address] [place] [address] PT1 Social History Tobacco Use Types Packs/Day [...] facility name: Ed Cowart DPM Facility Address: [address] [place] [address] [address], [place] [address] Escort needed: Y/N: Yes Do you have a wheelchair: Y/N: No If yes- Manual or electric: Visits: 4-5 visits a year documented in this encounter Plan of Treatment Upcoming Encounters Date Type Department Care Team (Late st Contact Info) Description 10/12/2025 1:30 PM EST Office Visit [facility] [address] [place] [address] Rj, Betina, OD [address] [place] [address] 10/25/2025 2:30 PM EST Procedure Visit [facility] [address] [place] [address] Renetta Gómez MD [address] [place] [address] documented as of this encounter Visit Diagnoses Not on filedocumented in this encounter Additional Health Concerns Assessment Noted Time PHQ-9 Depression Total Score: 0 04/06/20 23 10:11 AM EDT documented as of this encounter Care Teams Classroom Assistant Relationship Specialty Start Date End Date Renetta Gómez MD [address] [place] [address] PCP - General Family Medicine 12/29/18 Manuel Suazo Exec. Creative DirectorGeneral Farmworker 06/13/25 documented as of this encounter
--- OUTSIDE RECORDS SUMMARY | 2025-08-31 16:37 | XMS_ITS | Clinical Summary ---
Author Organization [address] [facility] Address [address] [place] [address] Phone Care Team Providers Care It Security Analyst Name Role Phone Renetta Gómez MD Primary [...] 2:00 PM EST Office Visit Orthopedic Surgery [facility] [address] [phone] Ed Cowart DPM Dermatophytosis of nail (Primary Dx); Diabetic mononeuropathy simplex ([facility] V24, [facility] V28); Acquired hammer toe of right foot; Hammer toe of left foot; Type II diabetes mellitus with peripheral circulatory disorder ([facility] V24, [facility] V28) from Last 3 Months Social History [...] 1:30 PM EST Office Visit Orthopedic Surgery [facility] [address] [phone] Ed Cowart DPM [address] [phone] Health Maintenance Due Date Last Done Comments Breast Cancer Screening 1970 Colorectal Cancer Screening: Colonoscopy 1970 Diabetes: Annual GFR (Glomerular Filtration Rate) 1970 Drug Screen 1970 Non-Opioid Controlled Substance Agreement 1970 Diabetes: Annual Foot Exam 1980 Diabetes: [...] complete this topic Insurance * Guarantor: Nicole Gusman Account Type Relation to Patient Date of Phone Billing Address Personal/Family Self 1970 [address] [place] [address] MEDICA[place] - [place] * Guarantor: Nicole Gusman Account Type Relation to Patient Date of Phone Billing Address Personal/Family Self 1970 [address] [place] [address] Care Teams It Security Analyst Relationship Specialty Start Date End Date Renetta Gómez MD [address] [place] [phone] PCP - General 08/25/23
--- OUTSIDE RECORDS SUMMARY | 2025-08-31 16:37 | XMS_ITS | Encounter Summary ---
Author Organization [employer] Address [address] [facility] 7t [place] [address] Care Team Providers Care Ear Machine Operator Name Role Phone Renetta Gómez MD Primary Care Provide r Reason for Visit * Reason Comments Med Refill Encounter Details Date Type Department Care Team (Late st Contact Info) Description 09/25/2023 Refill [facility] [address] [place], [place] [phone] Renetta Gómez MD [address] [place], [place] [phone] Hypothyroidism, unspecified type Social History Tobacco Use [...] Description 10/12/2025 1:30 PM EST Office Visit [facility] OPT[facility] [address] [place] [address] Betina De La Rosa, OD [address] [place] [address] 10/25/2025 2:30 PM EST Procedure Visit [facility] [address] [place] [address] Renetta Gómez MD [address] [place] [address] documented as of this encounter Visit Diagnoses Diagnosis Hypothyroidism, unspecified type documented in this encounter Additional Health Concerns Assessment Noted Time PHQ-9 Depression Total Score: 0 04/06/20 23 10:11 AM EDT documented as of this encounter Care Teams Ear Machine Operator Relationship Specialty Start Date End Date Renetta Gómez MD [address] [place] [address] PCP - General Family Medicine 12/29/18 Manuel Suazo Malt Liquors Sales SupervisorRn Document Improvement Specialist 06/13/25 documented as of this encounter
--- OUTSIDE RECORDS SUMMARY | 2025-08-31 16:37 | XMS_ITS | Clinical Summary ---
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 06/23/20 23 Active traZODone (Desyrel) 150 MG tablet Take 150 mg by mouth at bedtime. 06/11/20 23 Active Continuous Blood Gluc Continuous Yarn Dyeing Machine Operator (FreeStyle Oren 2 [place]) deviceIndications: Type 2 diabetes mellitus with hyperglycemia, with long-term current use of insulin ([facility]) Scan sensor every 8 hours 1 each 07/01/20 23 Active Continuous Blood Gluc Sensor (FreeStyle Oren 2 Sensor) miscIndications:Ty pe 2 diabetes mellitus with hyperglycemia, with long-term current use of insulin ([facility]) Apply 1 sensor every 14 days 2 each 07/01/20 23 Active Trulicity 4.5 MG/0.5ML solution pen-injectorIndica tions:Type 2 diabetes mellitus with hyperglycemia ([facility]) INJECT 4.5 mg SUBCUTANEOUSLY EVERY [...] UNITS SUBCUTANEOUSLY ONCE DAILY 18 mL 3 5 12:40 PM EST 08/07/20 24 Active pioglitazone (Actos) 15 MG [...] UNITS ONCE DAILY DIRECTED 10/21/19 25 Active Ozempic, 2 MG/DOSE, 8 MG/3ML solution pen-injector INJECT 2MG SUBCUTANEOUSLY EACH WEEK 04/10/20 25 Active cyclobenzaprine (Flexeril) 10 MG tabletIndications: Osteoarthritis of right glenohumeral joint Take 1 tablet (10 mg) by mouth 3 times daily for 20 days. 30 tablet 1 07/20/20 25 Active levothyroxine (Synthroid, Levoxyl) 50 MCG tabletIndications: Acquired hypothyroidism Take 1 tablet (50 mcg) by mouth Once per day. 90 tablet 1 07/20/20 25 Active Active Problems Problem Noted Date [...] 07/20/2025 Stage 3 chronic kidney disease (CMS/HCC) 025 Chronic right shoulder pain 04/16/2025 Assessment & [...] up: with endocrinology as scheduled Fibromyalgia 06/30/2024 senior care current use of insulin (CMS/HCC) 06/30 Liver [...] with same medication regimen and follow-up with bisque grader Assessment & Plan (03/17/2024 2:48 PM EDT): [...] DEPARTMENT Provider, Generic External Data 08/13/[address] [address] Renetta Gómez MD feb recall 07/20/2025 10:15 AM EST Telemedicine [address] [address] Renetta Gómez MD Type 2 diabetes mellitus with hyperglycemia, with long-term current use of insulin (HCC) (Primary Dx); Osteoarthritis of right glenohumeral joint; Acquired hypothyroidism 07/20/2025 Travel 07/18/2025 Patient Outreach [address] [address] Renetta Gómez MD Pre-visit Planning (SDOH screening completed on 10/05/24) 07/11/2025 Orders Only GENERIC EXTERNAL DATA DEPARTMENT Provider, Generic External Data 07/09/2025 Orders Only GENERIC EXTERNAL DATA DEPARTMENT Provider, Generic External Data 06/21/2025 Patient Outreach [address] [address] Renetta Gómez MD Care Coordination (CHW outreach for SDOH PT-1 and food needs-referral completed /) 06/21/2025 Telephone [facility] [address] [place], [place] [phone] Renetta Gómez MD pt1 06/13/2025 Telephone [facility] MED & PED[facility] [address] [place], [place] [phone] Renetta Gómez MD Care Coordination (ICP Care Plan) from Last 3 Months Immunizations Immunization Administration [...] Description 10/12/2025 1:30 PM EST Office Visit [facility] OPTOMETRY [address] [place] [address] Rj, Betina, OD [address] [place] [address] 10/25/2025 2:30 PM EST Procedure Visit [facility] MEDICINE [address] [place] [address] Renetta Gómez MD [address] [place] [address] Health Maintenance Due Date Last Done Comments [...] Routine 07/12/2024 10:54 AM EDT HIV ANTIBODY/ANTIGEN ([place] [facility]) Routine 07/02/2023 8:37 AM EDT HM COLONOSCOPY Routine 09/15/2022 ZZZ HISTORICAL HPV DNA, HIGH RISK, CERVICAL Routine 05/08/2020 3:09 PM EDT THINPREP IMAGING SYSTEM PAP Routine 05/08/2020 3:09 PM EDT from Last 3 Months or Most Recently Relevant to Health Maintenance Results * (ABNORMAL) Glucose, Whole Blood (08/15/2025 1:24 PM EST) Glucose, Whole Blood 149(H) 60 - 115 mg/dL [facility] Comment:METER #: [id number] 0Testing performed in the Endocrinology Department [address] , [address], [facility]. 08/15/2025 1:24 PM EST 08/15/2025 1:28 PM EST us Generic External Data Provider LAB BLOOD ORDERAB LES Final Result Performing Organization Address [facility] Co de Phone Number [facility] [address] [place] [phone] * Creatinine, Random Urine (07/11/2025 12:14 PM EDT) Creatinine, Urine 126.57 mg/dL [facility] 07/11/2025 12:1 4 PM EDT 07/11/2025 1:23 PM EDT Generic External Data Provider LAB URINE ORDERAB LES Final Result Performing Organization Address [facility] Co de Phone Number [facility] [address] [place] [phone] * TSH with Reflex to Free T4 (07/09/2025 8:11 AM EDT) TSH reflex Free T4 1.78 0.32 - 4.0 uIU/mL [facility] 07/09/2025 8:11 AM EDT 07/09/2025 11:32 AM EDT Generic External Data Provider LAB BLOOD ORDERAB LES Final Result Performing Organization Address [facility] Co de Phone Number [facility] [address] [place] [phone] * (ABNORMAL) Hemoglobin A1c (07/09/2025 8:11 AM EDT) Hemoglobin A1c 6.2(H) <6.0 % [facility] Comment:Hemoglobin A1C Refer ence Range Adults: 4.8 - 6.0 % Non diabetic: < 6.0 % Goal: < 7.0 %Additional Action Suggested: > 8.0 %Note: Hemoglobin A1c results are invalid for patients with abnormal amounts of HbF. Blood transfusions may impact the HbA1c concentration in the patient sample. Estimated Average Glucose 131 mg/dL [facility] Comment:eAG = Estimated ave rage glucose which is %A1C expressed asaverage glucose, using the formula of the L9Y-[id number] Glucose study (ADAG), Diabetes Care, Vol.31,#8,2007 07/09/2025 8:11 AM EDT 07/09/2025 11:32 AM EDT us Generic External Data Provider LAB BLOOD ORDERAB LES Final Result [facility] [address] [place] [phone] [phone] * BI Mammogram Screening Tomosynthesis Bilateral (05/22/2025 9:30 AM EDT) Anatomical Region Laterality Modality Breast Bilateral Mammography 05/22/2025 9:30 AM EDT Narrative 05/25/2025 5:34 PM EDT [facility] [address] [place] [address] [place] [address] Mammography Report Signed Patient: Renata Gusman MR#: [id number] : 1970 Acct:[id number] Age/Sex: 55 / F ADM Date: 05/22/25 Loc: [facility] Attending Dr: Renetta Pedro MD Ordering Physician: Renetta Gómez MD Results: 1Negative Date of Service: 05/22/25 Follow Up: 1 Year From Orig inal Mammogram Procedure(s): MM tomosynthesis screening BI Accession Number(s): [id number] cc: Renetta Gómez MD Reason For Exam: [...] Milian DO in OV> 05/25/25 1731 DD/ 9 TD/TT: 05/22/25 0950 Carpet Sewing Machine Operator: Procedure Note Donotuseinterpreter, Image - 05/25/2025 [facility] [address] [place] [address] Mammography Report Signed Patient: Julia Gusman#: [id number] : 1970Acct:[id number] Age/Sex: 55 / FADM Date: 05/22/25 Loc: [facility] Attending Dr: Renetta Pedro MD Ordering Physician: Renetta Gómez MDResults: 1Negative Date of Service: 05/22/25Follow Up: 1 Year From Orig inal Mammogram Procedure(s): MM tomosynthesis screening BI Accession Number(s): [id number] cc: Renetta Gómez MD Reason For Exam: [...] 05/25/25 1731 DD/ 0930 TD/TT: 05/22/25 0950 Carpet Sewing Machine Operator: Renetta Pedro MD IMG BI PROCEDURES Fin al Result * (ABNORMAL) Lipid Panel, Standard (07/12/2024 10:54 AM EDT) Triglycerides 170(H) <150 mg/dL [facility] Comment:Desirable Triglyceri de: less than 150 mg/dLBorderline High Triglyceride 150-199 mg/dLHigh Triglyceride: 200-499 mg/dLVery High Triglyceride: greater than or equal to 5OO mg/dL Cholesterol 179 <200 mg/dL [facility] Comment:Desirable Cholestero l: less than 200 mg/dLBorderline High Cholesterol: 200-239 mg/dLHigh Cholesterol: greater than 239 mg/dL LDL Cholesterol Calculated 109(H) <100 mg/dL [facility] Comment:Desirable LDL: less than 100 mg/dLNear Optimal/Above Optimal LDL: 110- 129 mg/dLBorderline High LDL: 130-159 mg/dLHigh LDL: 160-189 mg/dLVery High LDL: greater than or equal to 190 mg/dL HDL Cholesterol 36(L) >40 mg/dL [facility] Comment:Desirable HDL: great er than 40 mg/dL Note: This HDL assay may give artificially low results in patients with liver disease. 07/12/2024 10:5 4 AM EDT 07/12/2024 10:54 AM EDT us Generic External Data Provider LAB BLOOD ORDERAB LES Final Result Performing Organization Address [facility]/ZIP Co de Phone Number [facility] [address] [place] [phone] * HIV Ab/Ag ([facility]) (07/02/2023 8:37 AM EDT) HIV AB/AG Nonreactive Nonreactive [facility] Comment:HIV-1 p24 Ag and/or HIV-1/HIV-2 Ab not detected.A test result that is nonreactive does not exclude thepossibility of exposure to or infection with HIV-1 and/orHIV-2. Nonreactive results in this assay for individualswith prior exposure to HIV-1 and/or HIV-2 may be due toantigen and antibody levels that are below the limit ofdetection of this assay.The [employer] HIV Ag/Ab Combo assay result andsupplemental assay results should be interpreted inconjunction with the patient's clinical presentation,history and other laboratory results. If the results areinconsistent with clinical evidence, additional testing issuggested to confirm the result. 07/02/2023 8:37 AM EDT 07/02/2023 11:24 AM EDT us Renetta Pedro MD LAB BLOOD ORDERABLES Final Result Performing Organization Address [facility]/ZIP Co de Phone Number [facility] [address] [place] [phone] [phone] * Hm Colonoscopy (09/15/2022) Colonoscopy Normal [...] CERVICAL Not Detected NOT DETECTED [facility] Comment: Not Detected High Risk HPV types (16,18,31,33,35,39,45,51,52, 56,58,59,66,68) were not detected. Other HPV types which cause anogenital lesions may be present. The significance of the other types of HPV in malignant processes has not been established. Methodology: Real Time PCR 05/08/2020 3:09 PM EDT Renetta Pedro MD HISTORICAL/NON ORDERA BLE LABS Final Result [facility] [address] * THINPREP TIS PAP (05/08/2020 3:09 PM EDT) Pathologist [facility] Clinical Information: SEE COMMENT [facility] Comment:None given COMMENT SEE [...] has been evaluated with computer assisted technology. Barrel Rifler Operator: SEE COMMENT [facility] Comment: LT, CT(ASCP) CT screening location: [address] [address] Infection SEE COMMENT [facility] [...] MD LAB PATHOLOGY ORDERAB LES Final Result [facility] [address] from Last 3 Months or Most Recently Relevant to Health Maintenance Additional Health Concerns Active Problems Noted Date Diagnosed Date Help patients manage their type 2 diabetes 08/13 Patient has chronic kidney disease 08/13/2025 Insurance [facility] [employer] * Guarantor: Renata Gusman Account Type Relation to Patient Date of Phone Billing Address Personal/Family Self [address] [place] [address] * Guarantor: Renata Gusman Account Type Relation to Patient Date of Phone Billing Address Personal/Family Self [address] [place] [address] * Guarantor: Renata Gusman Account Type Relation to Patient Date of Phone Billing Address Personal/Family Self [address] [place] [address] Care Teams Director Sports Relationship Specialty Start Date End Date Renetta Gómez MD [address] [place] [address] PCP - General Family Medicine 12/29/18 Manuel Suazo Cripple ChaserBottle And Glass Inspector 06/13/25
--- OUTSIDE RECORDS SUMMARY | 2025-08-31 16:37 | XMS_ITS | Encounter Summary ---
Author Organization [employer] Address [address] [place] [address] 7t [place] [address] Care Team Providers Care Babysitter Name Role Phone Renetta Gómez MD Primary Care Provide r Reason for Visit * Reason Comments Med Refill Encounter Details Date Type Department Care Team (Late Contact Info) Description 12/02/2022 Refill [facility] MED & PEDS [address] [place], [place] [phone] Fannie Ceron MD [address] [place] [address] Type 2 diabetes mellitus without complication, unspecified whether skilled nursing insulin use ([facility]) Social History Tobacco Use Types [...] Description 10/12/2025 1:30 PM EST Office Visit [facility] OPTOMETRY [address] [place], [place] [phone] Betina De La Rosa, OD [address] [place] [address] 10/25/2025 2:30 PM EST Procedure Visit [facility] MEDICINE [address] [place] [address] Renetta Gómez MD [address] [place] [address] documented as of this encounter Visit Diagnoses Diagnosis Type 2 diabetes mellitus without complication, 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
--- OUTSIDE RECORDS SUMMARY | 2025-08-31 16:37 | XMS_ITS | Encounter Summary ---
Author Organization [employer] Address [address] [place] [address] 7t [place] [address] Care Team Providers Care Advertising Photographer Name Role Phone Renetta Gómez MD Primary Care Provide r Encounter Details Date Type Department Care Team (Late st Contact Info) Description 12/02/[address] [facility] MED & PEDS [address] [place] [address] Lizbeth Navarro LPN Social History Tobacco Use [...] Description 10/12/2025 1:30 PM EST Office Visit [facility] OPTOMETRY [address] [place] [address] Betina De La Rosa, OD [address] [place] [address] 10/25/2025 2:30 PM EST Procedure Visit [facility] MEDICINE [address] [place] [address] Renetta Gómez MD [address] [place] [address] documented as of this encounter Visit Diagnoses Not on filedocumented in this encounter Care Teams Advertising Photographer Relationship Specialty Start Date End Date Renetta Gómez MD [address] [place] [address] PCP - General Family Medicine 12/29/18 Manuel Suazo Deburring TechnicianKai Whakaruruhau 06/13/25 documented as of this encounter
--- OUTSIDE RECORDS SUMMARY | 2025-08-31 16:37 | XMS_ITS | Encounter Summary ---
Author Organization [employer] Address [address] [place] [address] 7t [place] [address] Care Team Providers Care Tongue Lining Stitcher Name Role Phone Renetta Gómez MD Primary Care Provide r Encounter Details Date Type Department Care Team (Late st Contact Info) Description 11/10/2022 Orders Only [facility]C MED & PEDS [address] [place] [address] Lizbeth Navarro LPN Social History Tobacco Use [...] 10/12/2025 1:30 PM EST Office Visit [facility] OPTOMETRY [address] [place] [address] Betina De La Rosa, OD [address] [place] [address] 10/25/2025 2:30 PM EST Procedure Visit [facility] MEDICINE [address] [place] [address] Renetta Gómez MD [address] [place] [address] documented as of this encounter Visit Diagnoses Not on filedocumented in this encounter Care Teams Tongue Lining Stitcher Relationship Specialty Start Date End Date Renetta Gómez MD [address] [place] [address] PCP - General Family Medicine 12/29/18 Manuel Suazo CaddyTransaction Manager 06/13/25 documented as of this encounter
--- OUTSIDE RECORDS SUMMARY | 2025-08-31 16:37 | XMS_ITS | Encounter Summary ---
Author Organization [employer] Address [address] [place] [address] 7t [place] [address] Care Team Providers Care Rent And Miscellaneous Remittance Clerk Name Role Phone Renetta Gómez MD Primary Care Provide r Reason for Visit * Reason Comments Med Refill Encounter Details Date Type Department Care Team (Late Contact Info) Description 06/16/2023 Refill [facility] MEDICINE [address] [place], [place] [phone] Roxana Quinonez MD [address] [place] [address] Social History Tobacco Use Types Packs/Day Years [...] Visit [facility] OPTOMETRY [address] [place], [place] [phone] Betina De [place] Rosa, OD [address] [place] [address] 10/25/2025 2:30 PM EST Procedure Visit [facility] MEDICINE [address] [place] [address] Renetta Gómez MD [address] [place] [address] documented as of this encounter Visit Diagnoses Not on filedocumented in this encounter Additional Health Concerns Assessment Noted Time PHQ-9 Depression Total Score: 0 04/06/20 23 10:11 AM EDT documented as of this encounter Care Teams Rent And Miscellaneous Remittance Clerk Relationship Specialty Start Date End Date Renetta Gómez MD [address] [place] [address] PCP - General Family Medicine 12/29/18 Manuel Suazo Upstream Biomanufacturing TechnicianClerical Investigator 06/13/25 documented as of this encounter
--- OUTSIDE RECORDS SUMMARY | 2025-08-31 16:37 | XMS_ITS | Encounter Summary ---
Author Organization [employer] Address [address] [facility] 7t [place] [address] Care Team Providers Care Sales And In Home Delivery Specialist Name Role Phone Renetta Gómez MD Primary Care Provide r Reason for Visit * Reason Comments Med Refill Encounter Details Date Type Department Care Team (Late st Contact Info) Description 07/29/2024 Refill [facility] MEDICINE [address] [place], [place] [phone] Renetta Gómez MD [address] [place] [address] Pruritus Social History Tobacco Use Types Packs/Day [...] t he electric, gas, oil or water [employer] threatened to shut off services in your [...] Description 10/12/2025 1:30 PM EST Office Visit [facility] OPTOMETRY [address] [place] [address] RjBetina bailey, OD [address] [place] [address] 10/25/2025 2:30 PM EST Procedure Visit [facility] MEDICINE [address] [place] [address] Renetta Gómez MD [address] [place] [address] documented as of this encounter Visit Diagnoses Diagnosis Pruritus Unspecified pruritic disorder documented in this encounter Additional Health Concerns Assessment Noted Time PHQ-9 Depression Total Score: 0 04/06/20 23 10:11 AM EDT documented as of this encounter Care Teams Sales And In Home Delivery Specialist Relationship Specialty Start Date End Date Renetta Gómez MD [address] [place] [address] PCP - General Family Medicine 12/29/18 Manuel Suazo Supportability EngineerSelf Pay Collector 06/13/25 documented as of this encounter
--- OUTSIDE RECORDS SUMMARY | 2025-08-31 16:37 | XMS_ITS | Encounter Summary ---
Author Organization [employer] Address [address] [facility] 7t [place] [address] Care Team Providers Care Technical System Analyst Name Role Phone Renetta Gómez MD Primary Care Provide r Encounter Details Date Type Department Care Team (Late Contact Info) Description 06/16/2023 Orders Only [facility] CH[facility] MED & PEDS [address] [place], [place] [phone] Lizbeth Navarro LPN Social History Tobacco Use [...] Office Visit [facility] OPTOMETRY [address] [place] [address] Betina De La Rosa, OD [address] [place] [address] 10/25/2025 2:30 PM EST Procedure Visit [facility] MEDICINE [address] [place] [address] Renetta Gómez MD [address] [place], [place] [phone] documented as of this encounter Visit Diagnoses Not on filedocumented in this encounter Additional Health Concerns Assessment Noted Time PHQ-9 Depression Total Score: 0 04/06/20 23 10:11 AM EDT documented as of this encounter Care Teams Technical System Analyst Relationship Specialty Start Date End Date Renetta Gómez MD 230 [place] [address] PCP - General Family Medicine 12/29/18 Manuel Suazo Chain RepairerNurse Recruiter 06/13/25 documented as of this encounter
--- OUTSIDE RECORDS SUMMARY | 2025-08-31 16:37 | XMS_ITS | Encounter Summary ---
Author Organization [employer] Address [address] [place] [address] 7t [place] [address] Care Team Providers Care Cooker Casing Name Role Phone Renetta Gómez MD Primary Care Provide r Reason for Visit * Reason Comments Med Refill Encounter Details Date Type Department Care Team (Late Contact Info) Description 03/24/2023 Refill [facility] MEDICINE [address] [place] [phone] Roxana Quinonez MD [address] [place] [address] Social History Tobacco Use Types Packs/Day Years [...] Visit [facility] OPTOMETRY [address] [place] [address] Betina De La Rosa, OD [address] [place] [address] 10/25/2025 2:30 PM EST Procedure Visit [facility] MEDICINE [address] [place] [address] Renetta Gómez MD [address] [place] [address] documented as of this encounter Visit Diagnoses Not on filedocumented in this encounter Care Teams Cooker Casing Relationship Specialty Start Date End Date Renetta Gómez MD [address] [place] [address] PCP - General Family Medicine 12/29/18 Manuel Suazo Ore Dressing EngineerCooker Casing 06/13/25 documented as of this encounter
== END 2025-08-31 16:14 | disposition home or self-care (01) ==
PROVIDERS: PCP Internal Medicine; Visit Provider Nurse Practitioner Family
DX: K74.69 Other cirrhosis of liver (principal); K59.04 Chronic idiopathic constipation; K21.9 Gastro-esophageal reflux disease without esophagitis; R74.01 Elevation of levels of liver transaminase levels
CPT/HCPCS: 99214

== ENCOUNTER → 2025-08-31 15:39 | Outpatient (BNVA) | payer MEDICAID, SELFPAY | PROVIDERS: PCP Internal Medicine; Visit Provider Nurse Practitioner Family | DX: K74.69 Other cirrhosis of liver (principal); K59.04 Chronic idiopathic constipation; K21.9 Gastro-esophageal reflux disease without esophagitis; R74.01 Elevation of levels of liver transaminase levels; Z79.899 Other long term (current) drug therapy | CPT/HCPCS: 99212 ==